=== PATIENT | female | born 1955 | race Asian ===

== ENCOUNTER 2019-11-03 22:12 | Inpatient (IN) | payer OTHER ==
[~2019-11-03] VITALS: Ht 160 cm; Wt 75.5 kg
[2019-11-03] MEDS ORDERED: DOCUSATE SODIU100 MG ORAL (22:13)
[2019-11-03] MEDS ORDERED: ASPIR 8181 MG ORAL (22:13)
[2019-11-03] MEDS ORDERED: MULTIVITAMINS1 EA13 ORAL (22:13)
--- NOTE | 2019-11-03 22:16 | Emergency Room Report ---
History of Present Illness General Chief Complaint: Upper Respiratory Illness Source: Patient Present Illness HPI Disclaimer: Please note that this report is being documented using DRAGON technology. This can lead to erroneous entry secondary to incorrect interpretation by the dictating instrument. HPI: 64-year-old female presenting from [facility] for evaluation of cough and fever. Symptoms began today. Paramedics reported fever greater than 101.4 degrees and a nonproductive cough beginning early this afternoon. Patient was brought in because she had no response to the Tylenol that was administered approximately 7 PM. Patient has a history of diabetes, hypertension, stroke and baseline mentation is reportedly AO x1. Patient arrives in no respiratory distress but is hypoxic at 88% on room air. Patient is primarily Northern [place] speaking but does appear to understand some Finnish. Does not provide any information. PMH: Diabetes, CVA, dysphasia, hypertension PSH: Reviewed Allergies: Bactrim Social Hx: Reviewed Allergies: Coded Allergies: SULFAMETHOXAZOLE (Verified Allergy, Unknown, 11/03/19) TRIMETHOPRIM (Verified Allergy, Unknown, 11/03/19) COVID-19 Screening Contact w/high risk pt: No Recent Travel to affected area: No Experienced COVID-19 symptoms?: Yes COVID-19 symptoms experienced: Fever (T>100.4F or >38C), Cough, Flu-Like Symptoms Patient History Last Menstrual Period: na Nursing Documentation-PMH Past Medical History: No History, Except For Hx Hypertension: Yes Hx Diabetes: Yes History Of Psychiatric Problem: Yes Review of Systems All Other Systems: limited - Unable to obtain due to patient cooperation/ mental status Physical Exam Vital Signs Date Time Temp Pulse Resp B/P (MAP) Pulse Ox O2 Delivery O2 Flow Rate FiO2 11/03/19 22:01 101.5 99 20 135/78 (97) 88 Room Air General: Awake, febrile HEENT: NC/AT. EOMI. Cardiovascular: Tachycardic. Resp: Mild tachypnea. Normal gait breathing. 88% on room air. Abdomen: Abdomen is soft, nondistended. Nontender Skin: Intact. No abrasions, laceration or rash over the exposed skin MSK: Normal tone and bulk. Moving all extremities. No obvious deformity. Neuro: Awake and alert. Mentating appropriately. Procedures Critical Care Time Critical Care Time Total critical care time: Approximately 31 minutes Due to a high probability of clinically significant, life threatening deterioration, the patient required the highest level of preparedness to intervene emergently and I personally spent this critical care time directly and personally managing the patient. This critical care time included obtaining a history, examining the patient, pulse oximetry, ordering and reviewing studies , ordering treatments, evaluating response to treatment and updating management plan as needed, frequent reassessment and discussion with other providers as well as arranging for ultimate disposition. This critical to care time was performed to assess and manage the high probability of life-threatening deterioration that could result in multiorgan failure. This critical care time is separate from the separately billable procedures and treating other patients. Medical Decision Making Diagnostic Impression: Primary Impression: Hypoxia Additional Impressions: Suspected 2019 novel coronavirus infection Pneumonia due to COVID-19 virus UTI (urinary tract infection) ER Course This is a 64-year-old female presenting from nursing facility for evaluation of cough and fever. Differential includes was not limited to viral syndrome, pneumonia, bronchitis, upper respiratory infection, COVID-19 infection, GERD, ACS. Patient arrives 88% on room air though no respiratory distress at this time. She is febrile despite receiving Tylenol prior to arrival. Based on the patient's presenting signs, symptoms and physical exam findings, the patient has been screened and is suspected to have COVID-19. Will obtain blood cultures , lactate, COVID swab, influenza swab, chest x-ray and other labs. Stat ABG ordered and patient started on nasal cannula. She is full code. Patient will require admission. Laboratory Tests Test 11/03/19 22:22 11/03/19 22:24 11/04/19 00:18 White Blood Count 6.5 K/UL (4.8-10.8) Red Blood Count 4.71 M/UL (4.20-5.40) Hemoglobin 13.8 G/DL (12.0-16.0) Hematocrit 43.6 % (37.0-47.0) Mean Corpuscular Volume 93 FL (80-99) Mean Corpuscular Hemoglobin 29.2 PG (27.0-31.0) Mean Corpuscular Hemoglobin Concent 31.6 G/DL (32.0-36.0) L Red Cell Distribution Width 14.6 % (11.6-14.8) Platelet Count 191 K/UL (150-450) Mean Platelet Volume 6.7 FL (6.5-10.1) Neutrophils (%) (Auto) 45.4 % (45.0-75.0) Lymphocytes (%) (Auto) 44.3 % (20.0-45.0) Monocytes (%) (Auto) 8.8 % (1.0-10.0) Eosinophils (%) (Auto) 0.1 % (0.0-3.0) Basophils (%) (Auto) 1.6 % (0.0-2.0) Urine Color Pale yellow Urine Appearance Cloudy Urine pH 6 (4.5-8.0) Urine Specific [place] 1.015 (1.005-1.035) Urine Protein 3+ (NEGATIVE) H Urine Glucose (UA) Negative (NEGATIVE) Urine Ketones Negative (NEGATIVE) Urine Blood 5+ (NEGATIVE) H Urine Nitrite Negative (NEGATIVE) Urine Bilirubin Negative (NEGATIVE) Urine Urobilinogen Normal MG/DL (0.0-1.0) Urine Leukocyte Esterase 3+ (NEGATIVE) H Urine RBC 10-15 /HPF (0 - 2) H Urine WBC Tntc /HPF (0 - 2) H Urine Squamous Epithelial Cells Occasional /LPF Urine Bacteria Moderate /HPF (NONE) H Sodium Level 137 MMOL/L (136-145) Potassium Level 4.1 MMOL/L (3.5-5.1) Chloride Level 104 MMOL/L (98-107) Carbon Dioxide Level 23 MMOL/L (21-32) Anion Gap 10 mmol/L (5-15) Blood Urea Nitrogen 18 mg/dL (7-18) Creatinine 1.0 MG/DL (0.55-1.30) Estimated Glomerular Filtration Rate 56.0 mL/min (>60) Glucose Level 179 MG/DL (74-106) H Lactic Acid Level 0.90 mmol/L (0.4-2.0) Calcium Level 8.3 MG/DL (8.5-10.1) L Total Bilirubin 0.3 MG/DL (0.2-1.0) Aspartate Amino Transferase (AST) 102 U/L (15-37) H Alanine Aminotransferase (ALT) 70 U/L (12-78) Alkaline Phosphatase 80 U/L (46-116) Troponin I 0.002 ng/mL (0.000-0.056) Pro-B-Type Natriuretic Peptide 29 pg/mL (0-125) Total Protein 8.9 G/DL (6.4-8.2) H Albumin 2.9 G/DL (3.4-5.0) L Globulin 6.0 g/dL Albumin/Globulin Ratio 0.5 (1.0-2.7) L Arterial Blood pH 7.430 (7.350-7.450) 7.445 (7.350-7.450) Arterial Blood Partial Pressure CO2 32.6 mmHg (35.0-45.0) L 33.2 mmHg (35.0-45.0) L Arterial Blood Partial Pressure O2 64.7 mmHg (75.0-100.0) L 380.4 mmHg (75.0-100.0) H Arterial Blood HCO3 21.2 mmol/L (22.0-26.0) L 22.3 mmol/L (22.0-26.0) Arterial Blood Oxygen Saturation 93.2 % (95-100) L 99.2 % (95-100) Arterial Blood Base Excess -2.2 (-2-2) L -1.0 (-2-2) Faheem Test Positive Positive Microbiology Date/Time Source Procedure Growth Status 11/03/19 22:22 Nasal Nares - Final Complete 11/03/19 22:22 Nasal Nares - Final Complete EKG Diagnostic Results EKG Time: 22:33 Rate: tachycardiac Rhythm: NSR ST Segments: no acute changes Other Impression Sinus rhythm, borderline left axis, normal intervals, no ST segment changes. Rhythm Strip Diag. Results Rhythm Strip Time: 22:33 EP Interpretation: yes Rate: 100 Rhythm: no ectopy Chest X-Ray Diagnostic Results Chest X-Ray Diagnostic Results : Chest X-Ray Ordered: Yes # of Views/Limited/Complete: 1 View Indication: Shortness of Breath EP Interpretation: Yes Interpretation: other - Bilateral infiltrates Impression: Other - Bilateral infiltrates concerning for pneumonia Electronically Signed by: Electronically signed by Dr. Kevin Altamirano Reevaluation Time: 01:28 Last Vital Signs Date Time Temp Pulse Resp B/P (MAP) Pulse Ox O2 Delivery O2 Flow Rate FiO2 11/03/19 22:01 101.5 99 20 135/78 (97) 88 Room Air Reevaluation Impression Initial blood gas while the patient was on room air showed hypoxia without acidosis. Patient remained on breathing mask for approximate 1 hour had repeat blood gas shows significant improvement. She also received Tylenol and fever is improving. Vital signs are within normal limits. Chest x-ray concerning for right lower lobe infiltrate and bilateral opacities. Suspicious for COVID-19 infection given the bilateral opacities. No respiratory distress at this time. Labs show CBC and chemistry within normal limits; lactate, troponin and BN peptide are within normal limits. Urinalysis concerning for an acute urinary tract infection. The patient received ceftriaxone and azithromycin. Will admit to SDU on her PMD, Dr. Cabrera. Disposition: ADMITTED INPATIENT Condition: Serious Kevin Altamirano MD Nov 03, 2019 22:16
[2019-11-03 22:32] VITALS: BP 135/78
[2019-11-03] MEDS ORDERED: Acetaminophen 500mg (ES) tab ORAL ONE (22:45)
[2019-11-03 22:51] LABS: APPEARANCE,URINE CLOUDY; BILIRUBIN, URINE NEGATIVE (NEGATIVE); COLOR,URINE PALE YELLOW; GLUCOSE, URINE (UA) NEGATIVE (NEGATIVE); KETONES,URINE NEGATIVE (NEGATIVE); LEUKOCYTE ESTERASE ,URINE 3+ (NEGATIVE); NITRITE,URINE NEGATIVE (NEGATIVE); PH,URINE 6 (4.5-8.0); PROTEIN,URINE 3+ (NEGATIVE); UROBILINOGEN,URINE NORMAL MG/DL (0.0-1.0)
[2019-11-03 22:52] LABS: BASOPHILS % (AUTO) 1.6 % (0.0-2.0); EOSINOPHILS % (AUTO) 0.1 % (0.0-3.0); HEMATOCRIT 43.6 % (37.0-47.0); HEMOGLOBIN 13.8 G/DL (12.0-16.0); LYMPHOCYTES % (AUTO) 44.3 % (20.0-45.0); MEAN CORPUSCULAR VOLUME 93 FL (80-99); MONOCYTES % (AUTO) 8.8 % (1.0-10.0); NEUTROPHILS % (AUTO) 45.4 % (45.0-75.0); PLATELET COUNT 191 K/UL (150-450); RED BLOOD COUNT 4.71 M/UL (4.20-5.40); RED CELL DISTRIBUTION WIDTH 14.6 % (11.6-14.8); WHITE BLOOD COUNT 6.5 K/UL (4.8-10.8)
[2019-11-03] MEDS ORDERED: Azithromycin 500 MG in NS 275 ML IV ONE (23:00)
[2019-11-03] MEDS ORDERED: cefTRIAXone 1 GM in NS 55 ML IVPB ONE (23:00)
[2019-11-03 23:01] LABS: ANION GAP 10 mmol/L (5-15); BLOOD UREA NITROGEN 18 mg/dL (7-18); CALCIUM 8.3 MG/DL (8.5-10.1); CARBON DIOXIDE 23 MMOL/L (21-32); CHLORIDE 104 MMOL/L (98-107); POTASSIUM 4.1 MMOL/L (3.5-5.1); SODIUM 137 MMOL/L (136-145)
[2019-11-03 23:06] LABS: ALANINE AMINOTRANSFERASE 70 U/L (12-78); ALBUMIN 2.9 G/DL (3.4-5.0); ALBUMIN/GLOBULIN RATIO 0.5 (1.0-2.7); ALKALINE PHOSPHATASE 80 U/L (46-116); ASPARTATE AMINO TRANSFERASE 102 U/L (15-37); BILIRUBIN,TOTAL 0.3 MG/DL (0.2-1.0)
[2019-11-04] VITALS (7 sets, daily range): BP systolic 110–151; BP diastolic 65–86
[2019-11-04] MEDS ORDERED: Acetaminophen 650 MG SUPP RECTAL PRN
[2019-11-04] MEDS ORDERED: Morphine Sulfate 2mg/ml Inj(IV/IM USE ONLY) IVP PRN
[2019-11-04] MEDS ORDERED: Morphine Sulfate 4mg/ml Inj (IV USE ONLY) IVP PRN
[2019-11-04] MEDS: NovoLOG Insulin Flexpen SUBQ SCH ×3 (11:30→21:00)
--- NOTE | 2019-11-04 12:32 | Consultation ---
History of Present Illness General Date patient seen: Nov 04, 2019 Chief Complaint: Upper Respiratory Illness Present Illness HPI 64 y/o F with hx of Dm2, HTN, CVA, SNF resident presented to ED on 11/02 with 1 day of non productive cough and fever (up to 101.4). Upon arrival, hypoxica to 88% at RA Allergies: Coded Allergies: SULFAMETHOXAZOLE (Verified Allergy, Unknown, 11/03/19) TRIMETHOPRIM (Verified Allergy, Unknown, 11/03/19) Medication History Scheduled Aspirin* (Aspir 81*), 81 MG ORAL DAILY, (Reported) Docusate Sodium* (Docusate Sodium*), 200 MG ORAL DAILY, (Reported) Multivitamin with Minerals (Multivitamins with Minerals), 1 TAB ORAL DAILY, ( Reported) Patient History Healthcare decision maker Rhea CHATMAN-son Resuscitation status Full Code Advanced Directive on File No Physical Exam Physical Exam Narrative General: Awake, febrile HEENT: NC/AT. EOMI. Cardiovascular: Tachycardic. Resp: Mild tachypnea. Normal gait breathing. 88% on room air. Abdomen: Abdomen is soft, nondistended. Nontender Skin: Intact. No abrasions, laceration or rash over the exposed skin MSK: Normal tone and bulk. Moving all extremities. No obvious deformity. Neuro: Awake and alert. Mentating appropriately. Last 24 Hour Vital Signs Date Time Temp Pulse Resp B/P (MAP) Pulse Ox O2 Delivery O2 Flow Rate FiO2 11/04/19 10:00 Simple Mask 6.0 11/04/19 08:30 97.9 20 110/73 (85) 99 11/04/19 08:15 99.1 75 20 123/61 98 Simple Mask 8.0 11/04/19 07:50 99.1 11/04/19 06:30 99.1 80 22 129/65 99 Simple Mask 10.0 11/04/19 03:30 100.1 96 18 122/68 99 Simple Mask 4.0 11/04/19 00:30 100.5 98 16 128/70 99 Simple Mask 11/03/19 22:32 102.5 109 18 135/78 94 Nasal Cannula 4.0 11/03/19 22:32 99 20 Nasal Cannula 4.0 11/03/19 22:01 101.5 99 20 135/78 (97) 88 Room Air Laboratory Tests Test 11/03/19 22:22 4/19/20 22:24 11/04/19 00:18 White Blood Count 6.5 K/UL (4.8-10.8) Red Blood Count 4.71 M/UL (4.20-5.40) Hemoglobin 13.8 G/DL (12.0-16.0) Hematocrit 43.6 % (37.0-47.0) Mean Corpuscular Volume 93 FL (80-99) Mean Corpuscular Hemoglobin 29.2 PG (27.0-31.0) Mean Corpuscular Hemoglobin Concent 31.6 G/DL (32.0-36.0) L Red Cell Distribution Width 14.6 % (11.6-14.8) Platelet Count 191 K/UL (150-450) Mean Platelet Volume 6.7 FL (6.5-10.1) Neutrophils (%) (Auto) 45.4 % (45.0-75.0) Lymphocytes (%) (Auto) 44.3 % (20.0-45.0) Monocytes (%) (Auto) 8.8 % (1.0-10.0) Eosinophils (%) (Auto) 0.1 % (0.0-3.0) Basophils (%) (Auto) 1.6 % (0.0-2.0) Urine Color Pale yellow Urine Appearance Cloudy Urine pH 6 (4.5-8.0) Urine Specific [place] 1.015 (1.005-1.035) Urine Protein 3+ (NEGATIVE) H Urine Glucose (UA) Negative (NEGATIVE) Urine Ketones Negative (NEGATIVE) Urine Blood 5+ (NEGATIVE) H Urine Nitrite Negative (NEGATIVE) Urine Bilirubin Negative (NEGATIVE) Urine Urobilinogen Normal MG/DL (0.0-1.0) Urine Leukocyte Esterase 3+ (NEGATIVE) H Urine RBC 10-15 /HPF (0 - 2) H Urine WBC Tntc /HPF (0 - 2) H Urine Squamous Epithelial Cells Occasional /LPF Urine Bacteria Moderate /HPF (NONE) H Sodium Level 137 MMOL/L (136-145) Potassium Level 4.1 MMOL/L (3.5-5.1) Chloride Level 104 MMOL/L (98-107) Carbon Dioxide Level 23 MMOL/L (21-32) Anion Gap 10 mmol/L (5-15) Blood Urea Nitrogen 18 mg/dL (7-18) Creatinine 1.0 MG/DL (0.55-1.30) Estimat Glomerular Filtration Rate 56.0 mL/min (>60) Glucose Level 179 MG/DL (74-106) H Lactic Acid Level 0.90 mmol/L (0.4-2.0) Calcium Level 8.3 MG/DL (8.5-10.1) L Total Bilirubin 0.3 MG/DL (0.2-1.0) Aspartate Amino Transf (AST/SGOT) 102 U/L (15-37) H Alanine Aminotransferase (ALT/SGPT) 70 U/L (12-78) Alkaline Phosphatase 80 U/L (46-116) Troponin I 0.002 ng/mL (0.000-0.056) Pro-B-Type Natriuretic Peptide 29 pg/mL (0-125) Total Protein 8.9 G/DL (6.4-8.2) H Albumin 2.9 G/DL (3.4-5.0) L Globulin 6.0 g/dL Albumin/Globulin Ratio 0.5 (1.0-2.7) L Arterial Blood pH 7.430 (7.350-7.450) 7.445 (7.350-7.450) Arterial Blood Partial Pressure CO2 32.6 mmHg (35.0-45.0) L 33.2 mmHg (35.0-45.0) L Arterial Blood Partial Pressure O2 64.7 mmHg (75.0-100.0) L 380.4 mmHg (75.0-100.0) H Arterial Blood HCO3 21.2 mmol/L (22.0-26.0) L 22.3 mmol/L (22.0-26.0) Arterial Blood Oxygen Saturation 93.2 % (95-100) L 99.2 % (95-100) Arterial Blood Base Excess -2.2 (-2-2) L -1.0 (-2-2) Faheem Test Positive Positive Microbiology Date/Time Source Procedure Growth Status 11/03/19 22:22 Nasal Nares - Final Complete 11/03/19 22:22 Nasal Nares - Final Complete 11/03/19 22:22 Urine,Clean Catch Urine Culture - Preliminary Resulted Height (Feet): 5 Height (Inches): 3.00 Weight (Pounds): 140 Medications Current Medications Medications (Trade) Dose Ordered Sig/Maryam Route PRN Reason Start Time Stop Time Status Last Admin Dose Admin Aspirin (Ecotrin) 81 mg DAILY ORAL 11/05/19 09:00 12/20/19 08:59 Ceftriaxone Sodium 1 gm/ Dextrose 55 ml @ 110 mls/hr Q24H IVPB 11/04/19 23:00 11/11/19 22:59 Dextrose (Dextrose 50%) 25 ml Q30M PRN IV Hypoglycemia 11/04/19 10:45 02/02/20 10:44 Dextrose (Dextrose 50%) 50 ml Q30M PRN IV Hypoglycemia 11/04/19 10:45 02/02/20 10:44 Insulin Aspart (NovoLOG) BEFORE MEALS AND HS SUBQ 11/04/19 11:30 02/02/20 11:29 Assessment/Plan Assessment/Plan: Abx: Ceftriaxone 11/02- Azithromycin x1 11/02 Assessment: Sepsis Fever- r/o COVID19, high suspicion (pt from [facility] w confirmed cases) Acute hypoxic respiratory failure- on simple mask Pnuemonia -CXR: pending, per ED report: Bilateral infiltrates concerning for pneumonia -Influenza sc neg No leukocytosis Probable UTI -u/a wbc tnct, nit neg, leuk +3; ucx p Dm2 HTN CVA SNF resident ([facility]) Plan: -Switch Ceftriaxone to Cefepime pending ucx -Continue azithromycin #2 -f/u cx -Monitor CBC/CMP, temperaturse Thank you for consulting [facility]. Will continue to follow along wiht you. Pmhx: as above SHx: reviewed Fhx: non contributory Jenna Briseno M.D. Nov 04, 2019 12:32
--- NOTE | 2019-11-04 12:45 | History and Physical Report ---
DATE OF ADMISSION: 11/03/2019 DATE AND TIME SEEN: 11/04/2019 at 9 a.m. CONSULTANTS: 1. Woody Bradley M.D. 2. Pritesh Royal M.D. 3. Isaac Vee M.D. CHIEF COMPLAINT: Shortness of breath, hypoxia, rule out COVID. BRIEF HISTORY: This is a 64-year-old female, who lives at [facility], presented with above-mentioned diagnosis, transferred to [facility] and admitted for above and rule out COVID. Currently, getting pulmonary treatment. Slight short of breath, slightly confused. No complaint. REVIEW OF SYSTEMS: Unable to obtain secondary to the patient's confusion. PAST MEDICAL HISTORY: Includes CVA, hypertension, diabetes type 2, renal failure, and confusion. PAST SURGICAL HISTORY: Unknown. MEDICATIONS: Include morphine, Zofran, Tylenol, azithromycin, ceftriaxone. ALLERGIES: Sulfa and trimethoprim. SOCIAL HISTORY: No smoking. No alcohol. No intravenous drug abuse. FAMILY HISTORY: Noncontributory. PHYSICAL EXAMINATION: GENERAL: Slightly confused in bed, not really talking much, getting pulmonary treatment. Calm in bed, slight short of breath. VITAL SIGNS: Temperature is 99, T-max 102.5, pulse 75, respirations 20, blood pressure 123/61. HEENT: Normocephalic and atraumatic. NECK: Trachea midline. CARDIOVASCULAR: No peripheral edema. PULMONARY: Slight short of breath. Getting pulmonary treatment. ABDOMEN: No apparent wounds noted. EXTREMITIES: Show no cyanosis or clubbing. LABORATORY AND DIAGNOSTIC DATA: Labs at this time show CBC is normal. BMP shows glucose 179. Otherwise, calcium 8.3. Troponin 0.002, albumin 2.9. Urinalysis shows 5+ blood, 3+ protein, 3+ leukocyte esterase. ASSESSMENT: Shortness of breath, hypoxia, malnutrition, anemia, fever, rule out COVID, CVA, hypertension, diabetes, renal failure, and confusion. PLAN: O2 and pulmonary treatment. Antibiotics per Infectious Disease. Blood pressure and blood sugar control. Dietary followup. CBC and BMP in the morning. Trevor Cabrera D.O. DR: DANETTE JOB#: [id number] CC:
[2019-11-04] MEDS ORDERED: Cefepime HCl 1 GM in D5W 55 ML IVPB SCH (14:00)
--- NOTE | 2019-11-04 17:30 | Consultation ---
DATE OF CONSULTATION: 11/04/2019 PULMONARY CONSULTATION CONSULTING PHYSICIAN: Woody Bradley M.D. HISTORY OF PRESENT ILLNESS: This is a 64-year-old female, who was sent in from a nursing facility with cough and fever. Symptoms have been ongoing for the last 24 hours. The patient was found to be febrile in the [place] [facility] with a T-max of 101.4. She also reported a cough. The patient was given Tylenol, but had no relief. The patient was admitted to the hospital. She was also noted to be hypoxic on room air 88%. PAST HISTORY: Hypertension, diabetes mellitus, previous CVA, cognitive impairment. SURGICAL HISTORY: None reported. ALLERGIES: To Bactrim. REVIEW OF SYSTEMS: Unreliable. PHYSICAL EXAMINATION: VITAL SIGNS: Blood pressure is 110/70, heart rate 94, respirations are 20, O2 saturation 98% on simple mask with oxygen 5 L. She is afebrile. GENERAL: Reveals an elderly female. HEENT: Unremarkable. CHEST: Diminished breath sounds bilaterally with normal heart sounds. ABDOMEN: Soft. EXTREMITIES: There is no edema. LABORATORY DATA: Lab testing at this time is notable for normal CBC and glucose of 179, AST mildly elevated at 102. Troponin 0.002. Albumin is 2.9. ABG, pH 7.44, pCO2 33, pO2 380. There is 100% oxygen. Urinalysis shows too numerous to count wbc. IMPRESSION: 1. UTI. 2. Hypoxemia. 3. Hypertension. 4. Diabetes mellitus. 5. Previous CVA. 6. Cognitive impairment. 7. residential resident. 8. Bactrim allergy. DISCUSSION: Agree with admission and care. The patient will need broad-spectrum antibiotics. I note that she has received a single dose of Rocephin. I will initiate therapy with Rocephin on a regular basis. Order oxygen and pulmonary hygiene. We will follow as hull grinder. Woody Bradley M.D. DR: RAFAEL JOB#: [id number] CC:
[2019-11-04] MEDS ORDERED: cefTRIAXone 1 GM in D5W 55 ML IVPB SCH (23:00)
[2019-11-05] VITALS: BP 111/77
[2019-11-05] MEDS: Cefepime HCl 1 GM in D5W 55 ML IVPB SCH (02:03)
[2019-11-05 04:00] VITALS: BP 118/86
[2019-11-05 05:46] LABS: BASOPHILS % (AUTO) 0.9 % (0.0-2.0); EOSINOPHILS % (AUTO) 0.1 % (0.0-3.0); HEMATOCRIT 40.1 % (37.0-47.0); HEMOGLOBIN 13.4 G/DL (12.0-16.0); LYMPHOCYTES % (AUTO) 34.7 % (20.0-45.0); MEAN CORPUSCULAR VOLUME 88 FL (80-99); NEUTROPHILS % (AUTO) 56.3 % (45.0-75.0); PLATELET COUNT 146 K/UL (150-450); RED BLOOD COUNT 4.56 M/UL (4.20-5.40); RED CELL DISTRIBUTION WIDTH 12.8 % (11.6-14.8); WHITE BLOOD COUNT 6.4 K/UL (4.8-10.8)
[2019-11-05 05:49] LABS: ANION GAP 12 mmol/L (5-15); BLOOD UREA NITROGEN 18 mg/dL (7-18); CARBON DIOXIDE 21 MMOL/L (21-32); CHLORIDE 108 MMOL/L (98-107); CREATININE 0.9 MG/DL (0.55-1.30); POTASSIUM 3.8 MMOL/L (3.5-5.1); SODIUM 141 MMOL/L (136-145)
[2019-11-05] MEDS: NovoLOG Insulin Flexpen SUBQ SCH ×4 (06:30→21:00)
--- NOTE | 2019-11-05 07:34 | Diagnostic Imaging Report ---
Indication: Cough Technique: One view of the chest Comparison: none Findings: The heart is borderline enlarged. There are bilateral interstitial opacities diffusely. No definite focal airspace consolidation. The pleural spaces are clear. Impression: Borderline cardiomegaly. Bilateral interstitial disease. This is nonspecific, could indicate infiltrates, edema, among other possibilities
[2019-11-05 08:00] VITALS: BP 116/84
[2019-11-05] MEDS: Azithromycin 250mg tab ORAL SCH (09:10)
[2019-11-05] MEDS: Aspirin EC 81mg tab ORAL SCH (09:10)
--- NOTE | 2019-11-05 11:27 | Pulmonology Progress Note ---
Assessment/Plan Assessment/Plan IMPRESSION: 1. UTI. 2. Hypoxemia. 3. Hypertension. 4. Diabetes mellitus. 5. Previous CVA. 6. Cognitive impairment. 7. half-way resident. 8. Bactrim allergy. 9. COVID 19 results pending. DISCUSSION: Agree with admission and care. The patient will need broad-spectrum antibiotics. Ordered oxygen and pulmonary hygiene. I will follow as personal injury specialist. Woody Bradley M.D. Subjective Interval Events: On 4L/min O2; none new Constitutional: Reports: no symptoms HEENT: Repors: no symptoms Respiratory: Reports: no symptoms Cardiovascular: Reports: no symptoms Gastrointestinal/Abdominal: Reports: no symptoms Allergies: Coded Allergies: SULFAMETHOXAZOLE (Verified Allergy, Unknown, 11/03/19) TRIMETHOPRIM (Verified Allergy, Unknown, 11/03/19) Objective Last 24 Hour Vital Signs Date Time Temp Pulse Resp B/P (MAP) Pulse Ox O2 Delivery O2 Flow Rate FiO2 11/05/19 08:00 Nasal Cannula 4.0 11/05/19 08:00 98.1 84 19 116/84 (95) 95 11/05/19 07:51 81 11/05/19 04:00 Nasal Cannula 4.0 11/05/19 04:00 71 11/05/19 04:00 98.5 80 20 118/86 (97) 98 11/05/19 00:00 101.1 92 20 111/77 (88) 100 11/05/19 00:00 92 11/05/19 00:00 Nasal Cannula 4.0 11/04/19 22:58 101.1 11/04/19 20:00 102.2 104 20 122/73 (89) 99 11/04/19 20:00 Nasal Cannula 4.0 11/04/19 20:00 104 11/04/19 16:00 Nasal Cannula 4.0 11/04/19 16:00 97 11/04/19 15:34 99.9 103 20 120/77 (91) 92 11/04/19 12:00 Nasal Cannula 4.0 11/04/19 12:00 96.4 73 20 151/86 (107) 99 11/04/19 11:49 84 Intake and Output 11/04/19 11/05/19 19:00 07:00 Intake Total 480 ml 55 ml Output Total 200 ml Balance 280 ml 55 ml Intake Oral 480 ml IV Total 55 ml Output Urine Total 200 ml # Voids 2 2 General Appearance: no acute distress HEENT: normocephalic Respiratory/Chest: chest wall non-tender, decreased breath sounds Cardiovascular: normal peripheral pulses Abdomen: normal bowel sounds Extremities: no cyanosis Microbiology Date/Time Source Procedure Growth Status 11/03/19 22:22 Blood Blood Culture - Preliminary NO GROWTH AFTER 24 HOURS Resulted 11/03/19 22:00 Blood Blood Culture - Preliminary NO GROWTH AFTER 24 HOURS Resulted 11/03/19 22:22 Nasal Nares - Final Complete 11/03/19 22:22 Nasal Nares - Final Complete 11/03/19 22:22 Urine,Clean Catch Urine Culture - Preliminary Gram Negative Bacillus 1 Resulted Laboratory Tests 11/05/19 03:00: White Blood Count 6.4, Red Blood Count 4.56, Hemoglobin 13.4, Hematocrit 40.1, Mean Corpuscular Volume 88, Mean Corpuscular Hemoglobin 29.3, Mean Corpuscular Hemoglobin Concent 33.4, Red Cell Distribution Width 12.8, Platelet Count 146L, Mean Platelet Volume 5.6L, Neutrophils (%) (Auto) 56.3, Lymphocytes (%) (Auto) 34.7, Monocytes (%) (Auto) 8.0, Eosinophils (%) (Auto) 0.1, Basophils (%) (Auto ) 0.9, Sodium Level 141, Potassium Level 3.8, Chloride Level 108H, Carbon Dioxide Level 21, Anion Gap 12, Blood Urea Nitrogen 18, Creatinine 0.9, Estimat Glomerular Filtration Rate > 60, Glucose Level 157H, Calcium Level 8.0L Current Medications Medications (Trade) Dose Ordered Sig/Maryam Route PRN Reason Start Time Stop Time Status Last Admin Dose Admin Acetaminophen (Tylenol) 650 mg Q6H PRN ORAL MILD PAIN/TEMP >100.5 11/04/19 20:30 12/04/19 20:29 11/04/19 22:28 Aspirin (Ecotrin) 81 mg DAILY ORAL 11/05/19 09:00 12/20/19 08:59 11/05/19 09:10 Azithromycin (Zithromax) 500 mg DAILY ORAL 11/05/19 09:00 11/12/19 08:59 11/05/19 09:10 Cefepime HCl 1 gm/ Dextrose 55 ml @ 110 mls/hr Q24H IVPB 11/05/19 02:00 11/12/19 01:59 11/05/19 02:03 Dextrose (Dextrose 50%) 25 ml Q30M PRN IV Hypoglycemia 11/04/19 10:45 02/02/20 10:44 Dextrose (Dextrose 50%) 50 ml Q30M PRN IV Hypoglycemia 11/04/19 10:45 02/02/20 10:44 Insulin Aspart (NovoLOG) BEFORE MEALS AND HS SUBQ 11/04/19 11:30 02/02/20 11:29 11/04/19 17:38 Woody Bradley MD Nov 05, 2019 11:27
--- NOTE | 2019-11-05 11:39 | Infectious Diseases Prog Note ---
Assessment/Plan Assessment/Plan Assessment: Sepsis Fever- r/o COVID19, high suspicion (pt from [facility] w confirmed cases) Acute hypoxic respiratory failure- on simple mask Pnuemonia -CXR: Borderline cardiomegaly. Bilateral interstitial disease. This is nonspecific, could indicate infiltrates, edema, among other possibilities -Influenza sc neg -Bcx NTD No leukocytosis UTI -u/a wbc tnct, nit neg, leuk +3; ucx >100k GNR Dm2 HTN CVA [facility] resident ([facility]) Plan: - Cefepime#2 (abx d #3) pending ucx -Continue azithromycin #3 -11/03 SP Ceftriaxone #2 -f/u cx -Monitor CBC/CMP, temperaturse -EKG -CXR an Thank you for consulting [facility]. Will continue to follow along wiht you. Subjective Allergies: Coded Allergies: SULFAMETHOXAZOLE (Verified Allergy, Unknown, 11/03/19) TRIMETHOPRIM (Verified Allergy, Unknown, 11/03/19) Subjective Tm 102.2 at 4l nC no leukocytosis Objective Vital Signs Last 24 Hour Vital Signs Date Time Temp Pulse Resp B/P (MAP) Pulse Ox O2 Delivery O2 Flow Rate FiO2 11/05/19 08:00 Nasal Cannula 4.0 11/05/19 08:00 98.1 84 19 116/84 (95) 95 11/05/19 07:51 81 11/05/19 04:00 Nasal Cannula 4.0 11/05/19 04:00 71 11/05/19 04:00 98.5 80 20 118/86 (97) 98 11/05/19 00:00 101.1 92 20 111/77 (88) 100 11/05/19 00:00 92 11/05/19 00:00 Nasal Cannula 4.0 11/04/19 22:58 101.1 11/04/19 20:00 102.2 104 20 122/73 (89) 99 11/04/19 20:00 Nasal Cannula 4.0 11/04/19 20:00 104 11/04/19 16:00 Nasal Cannula 4.0 11/04/19 16:00 97 11/04/19 15:34 99.9 103 20 120/77 (91) 92 11/04/19 12:00 Nasal Cannula 4.0 11/04/19 12:00 96.4 73 20 151/86 (107) 99 11/04/19 11:49 84 Height (Feet): 5 Height (Inches): 3.00 Weight (Pounds): 140 Objective not examined to limit covid exposure Microbiology Date/Time Source Procedure Growth Status 11/03/19 22:22 Blood Blood Culture - Preliminary NO GROWTH AFTER 24 HOURS Resulted 11/03/19 22:00 Blood Blood Culture - Preliminary NO GROWTH AFTER 24 HOURS Resulted 11/03/19 22:22 Nasal Nares - Final Complete 11/03/19 22:22 Nasal Nares - Final Complete 11/03/19 22:22 Urine,Clean Catch Urine Culture - Preliminary Gram Negative Bacillus 1 Resulted Laboratory Tests Test 11/05/19 03:00 White Blood Count 6.4 K/UL (4.8-10.8) Red Blood Count 4.56 M/UL (4.20-5.40) Hemoglobin 13.4 G/DL (12.0-16.0) Hematocrit 40.1 % (37.0-47.0) Mean Corpuscular Volume 88 FL (80-99) Mean Corpuscular Hemoglobin 29.3 PG (27.0-31.0) Mean Corpuscular Hemoglobin Concent 33.4 G/DL (32.0-36.0) Red Cell Distribution Width 12.8 % (11.6-14.8) Platelet Count 146 K/UL (150-450) L Mean Platelet Volume 5.6 FL (6.5-10.1) L Neutrophils (%) (Auto) 56.3 % (45.0-75.0) Lymphocytes (%) (Auto) 34.7 % (20.0-45.0) Monocytes (%) (Auto) 8.0 % (1.0-10.0) Eosinophils (%) (Auto) 0.1 % (0.0-3.0) Basophils (%) (Auto) 0.9 % (0.0-2.0) Sodium Level 141 MMOL/L (136-145) Potassium Level 3.8 MMOL/L (3.5-5.1) Chloride Level 108 MMOL/L (98-107) H Carbon Dioxide Level 21 MMOL/L (21-32) Anion Gap 12 mmol/L (5-15) Blood Urea Nitrogen 18 mg/dL (7-18) Creatinine 0.9 MG/DL (0.55-1.30) Estimat Glomerular Filtration Rate > 60 mL/min (>60) Glucose Level 157 MG/DL (74-106) H Calcium Level 8.0 MG/DL (8.5-10.1) L Current Medications Medications (Trade) Dose Ordered Sig/Maryam Route PRN Reason Start Time Stop Time Status Last Admin Dose Admin Acetaminophen (Tylenol) 650 mg Q6H PRN ORAL MILD PAIN/TEMP >100.5 11/04/19 20:30 12/04/19 20:29 11/04/19 22:28 Aspirin (Ecotrin) 81 mg DAILY ORAL 11/05/19 09:00 12/20/19 08:59 11/05/19 09:10 Azithromycin (Zithromax) 500 mg DAILY ORAL 11/05/19 09:00 11/12/19 08:59 11/05/19 09:10 Cefepime HCl 1 gm/ Dextrose 55 ml @ 110 mls/hr Q24H IVPB 11/05/19 02:00 11/12/19 01:59 11/05/19 02:03 Dextrose (Dextrose 50%) 25 ml Q30M PRN IV Hypoglycemia 11/04/19 10:45 02/02/20 10:44 Dextrose (Dextrose 50%) 50 ml Q30M PRN IV Hypoglycemia 11/04/19 10:45 02/02/20 10:44 Insulin Aspart (NovoLOG) BEFORE MEALS AND HS SUBQ 11/04/19 11:30 02/02/20 11:29 11/04/19 17:38 Jenna Briseno M.D. Nov 05, 2019 11:39
[2019-11-05 12:00] VITALS: BP 118/81
--- NOTE | 2019-11-05 12:47 | General Progress Note ---
Assessment/Plan Problem List: (1) Malnutrition ICD Codes: E46 - Unspecified protein-calorie malnutrition SNOMED: 19722211 (2) Anemia ICD Codes: D64.9 - Anemia, unspecified SNOMED: 605172747 (3) Fever ICD Codes: R50.9 - Fever, unspecified SNOMED: 237593175 (4) CVA (cerebral vascular accident) ICD Codes: I63.9 - Cerebral infarction, unspecified SNOMED: 266082656 (5) HTN (hypertension) ICD Codes: I10 - Essential (primary) hypertension SNOMED: 54010192 (6) Diabetes ICD Codes: E11.9 - Type 2 diabetes mellitus without complications SNOMED: 53620563 (7) Renal failure ICD Codes: N19 - Unspecified kidney failure SNOMED: 84473007 (8) Confusion ICD Codes: R41.0 - Disorientation, unspecified SNOMED: 760463313 (9) Hypoxia ICD Codes: R09.02 - Hypoxemia SNOMED: 659119337 (10) Suspected 2019 novel coronavirus infection ICD Codes: R68.89 - Other general symptoms and signs SNOMED: 303439649 Status: unchanged Assessment/Plan: o2 pulm tx abx bp bs control cbc bmp am Subjective Constitutional: Reports: weakness Allergies: Coded Allergies: SULFAMETHOXAZOLE (Verified Allergy, Unknown, 11/03/19) TRIMETHOPRIM (Verified Allergy, Unknown, 11/03/19) All Systems: reviewed and negative except above Subjective o2nc sleepy Objective Last 24 Hour Vital Signs Date Time Temp Pulse Resp B/P (MAP) Pulse Ox O2 Delivery O2 Flow Rate FiO2 11/05/19 08:00 Nasal Cannula 4.0 11/05/19 08:00 98.1 84 19 116/84 (95) 95 11/05/19 07:51 81 11/05/19 04:00 Nasal Cannula 4.0 11/05/19 04:00 71 11/05/19 04:00 98.5 80 20 118/86 (97) 98 11/05/19 00:00 101.1 92 20 111/77 (88) 100 11/05/19 00:00 92 11/05/19 00:00 Nasal Cannula 4.0 11/04/19 22:58 101.1 11/04/19 20:00 102.2 104 20 122/73 (89) 99 11/04/19 20:00 Nasal Cannula 4.0 11/04/19 20:00 104 11/04/19 16:00 Nasal Cannula 4.0 11/04/19 16:00 97 11/04/19 15:34 99.9 103 20 120/77 (91) 92 Intake and Output 11/04/19 11/05/19 19:00 07:00 Intake Total 480 ml 55 ml Output Total 200 ml Balance 280 ml 55 ml Intake Oral 480 ml IV Total 55 ml Output Urine Total 200 ml # Voids 2 2 Laboratory Tests 11/05/19 03:00: White Blood Count 6.4, Red Blood Count 4.56, Hemoglobin 13.4, Hematocrit 40.1, Mean Corpuscular Volume 88, Mean Corpuscular Hemoglobin 29.3, Mean Corpuscular Hemoglobin Concent 33.4, Red Cell Distribution Width 12.8, Platelet Count 146L, Mean Platelet Volume 5.6L, Neutrophils (%) (Auto) 56.3, Lymphocytes (%) (Auto) 34.7, Monocytes (%) (Auto) 8.0, Eosinophils (%) (Auto) 0.1, Basophils (%) (Auto ) 0.9, Sodium Level 141, Potassium Level 3.8, Chloride Level 108H, Carbon Dioxide Level 21, Anion Gap 12, Blood Urea Nitrogen 18, Creatinine 0.9, Estimat Glomerular Filtration Rate > 60, Glucose Level 157H, Calcium Level 8.0L Height (Feet): 5 Height (Inches): 3.00 Weight (Pounds): 140 EENT: PERRL/EOMI Neck: non-tender Cardiovascular: normal rate, regular rhythm Respiratory/Chest: normal breath sounds, no respiratory distress Extremities: normal inspection Skin: normal pigmentation Trevor Cabrera DO Nov 05, 2019 12:47
[2019-11-05 16:00] VITALS: BP 121/83
[2019-11-05 20:00] VITALS: BP 126/83
--- NOTE | 2019-11-05 21:56 | Consultation ---
History of Present Illness General Date patient seen: Nov 05, 2019 Chief Complaint: Upper Respiratory Illness Present Illness HPI This is a 64-year-old female presenting from SNF for evaluation of cough and fever for 1 day. Paramedics reported fever greater than 101.4 degrees and a nonproductive cough. Patient was brought in because she had no response to the Tylenol that was administered. Patient has a history of diabetes, hypertension , stroke and baseline mentation minimal. Patient arrives in no respiratory distress but is hypoxic at 88% on room air. Patient is primarily [place] speaking but does appear to understand some Czech. Does not provide any information. On admission noted to have abnormal labs, malnutrition, COVID r/o , decubitus ulcers. surgery called to evaluate and assist with care. Allergies: Coded Allergies: SULFAMETHOXAZOLE (Verified Allergy, Unknown, 11/03/19) TRIMETHOPRIM (Verified Allergy, Unknown, 11/03/19) Medication History Scheduled Aspirin* (Aspir 81*), 81 MG ORAL DAILY, (Reported) Docusate Sodium* (Docusate Sodium*), 200 MG ORAL DAILY, (Reported) Multivitamin with Minerals (Multivitamins with Minerals), 1 TAB ORAL DAILY, ( Reported) Patient History Limited by: medical condition History Provided By: Medical Record, PMD Healthcare decision maker Rhea CHATMAN-jose Resuscitation status Full Code Advanced Directive on File No Past Medical/Surgical History Past Medical/Surgical History: (1) Hypoxia (2) UTI (urinary tract infection) (3) Suspected 2019 novel coronavirus infection (4) Pneumonia due to COVID-19 virus (5) Fever (6) Anemia (7) Confusion (8) Diabetes (9) Renal failure (10) Malnutrition (11) HTN (hypertension) (12) CVA (cerebral vascular accident) Review of Systems All Other Systems: negative except mentioned in HPI Physical Exam General Appearance: no apparent distress Lines, tubes and drains: peripheral HEENT: mucous membranes moist Neck: normal inspection Respiratory/Chest: chest wall non-tender, no accessory muscle use, decreased breath sounds Cardiovascular/Chest: regular rhythm Abdomen: soft, no organomegaly, no mass Extremities: normal inspection, normal capillary refill, non-pitting Skin Exam: warm/dry Neurologic: alert, responsive Last 24 Hour Vital Signs Date Time Temp Pulse Resp B/P (MAP) Pulse Ox O2 Delivery O2 Flow Rate FiO2 11/05/19 16:00 98.2 94 21 121/83 (96) 95 11/05/19 16:00 81 11/05/19 16:00 Nasal Cannula 4.0 11/05/19 12:00 Nasal Cannula 4.0 11/05/19 12:00 98.1 84 18 118/81 (93) 96 11/05/19 12:00 78 11/05/19 08:00 Nasal Cannula 4.0 11/05/19 08:00 98.1 84 19 116/84 (95) 95 11/05/19 07:51 81 11/05/19 04:00 Nasal Cannula 4.0 11/05/19 04:00 71 11/05/19 04:00 98.5 80 20 118/86 (97) 98 11/05/19 00:00 101.1 92 20 111/77 (88) 100 11/05/19 00:00 92 11/05/19 00:00 Nasal Cannula 4.0 11/04/19 22:58 101.1 Intake and Output 11/04/19 11/05/19 19:00 07:00 Intake Total 480 ml 55 ml Output Total 200 ml Balance 280 ml 55 ml Intake Oral 480 ml IV Total 55 ml Output Urine Total 200 ml # Voids 2 2 Laboratory Tests Test 11/05/19 03:00 White Blood Count 6.4 K/UL (4.8-10.8) Red Blood Count 4.56 M/UL (4.20-5.40) Hemoglobin 13.4 G/DL (12.0-16.0) Hematocrit 40.1 % (37.0-47.0) Mean Corpuscular Volume 88 FL (80-99) Mean Corpuscular Hemoglobin 29.3 PG (27.0-31.0) Mean Corpuscular Hemoglobin Concent 33.4 G/DL (32.0-36.0) Red Cell Distribution Width 12.8 % (11.6-14.8) Platelet Count 146 K/UL (150-450) L Mean Platelet Volume 5.6 FL (6.5-10.1) L Neutrophils (%) (Auto) 56.3 % (45.0-75.0) Lymphocytes (%) (Auto) 34.7 % (20.0-45.0) Monocytes (%) (Auto) 8.0 % (1.0-10.0) Eosinophils (%) (Auto) 0.1 % (0.0-3.0) Basophils (%) (Auto) 0.9 % (0.0-2.0) Sodium Level 141 MMOL/L (136-145) Potassium Level 3.8 MMOL/L (3.5-5.1) Chloride Level 108 MMOL/L (98-107) H Carbon Dioxide Level 21 MMOL/L (21-32) Anion Gap 12 mmol/L (5-15) Blood Urea Nitrogen 18 mg/dL (7-18) Creatinine 0.9 MG/DL (0.55-1.30) Estimat Glomerular Filtration Rate > 60 mL/min (>60) Glucose Level 157 MG/DL (74-106) H Calcium Level 8.0 MG/DL (8.5-10.1) L Height (Feet): 5 Height (Inches): 3.00 Weight (Pounds): 140 Medications Current Medications Medications (Trade) Dose Ordered Sig/Maryam Route PRN Reason Start Time Stop Time Status Last Admin Dose Admin Acetaminophen (Tylenol) 650 mg Q6H PRN ORAL MILD PAIN/TEMP >100.5 11/04/19 20:30 12/04/19 20:29 11/04/19 22:28 Aspirin (Ecotrin) 81 mg DAILY ORAL 11/05/19 09:00 12/20/19 08:59 11/05/19 09:10 Azithromycin (Zithromax) 500 mg DAILY ORAL 11/05/19 09:00 11/12/19 08:59 11/05/19 09:10 Cefepime HCl 1 gm/ Dextrose 55 ml @ 110 mls/hr Q24H IVPB 11/05/19 02:00 11/12/19 01:59 11/05/19 02:03 Dextrose (Dextrose 50%) 25 ml Q30M PRN IV Hypoglycemia 11/04/19 10:45 02/02/20 10:44 Dextrose (Dextrose 50%) 50 ml Q30M PRN IV Hypoglycemia 11/04/19 10:45 02/02/20 10:44 Insulin Aspart (NovoLOG) BEFORE MEALS AND HS SUBQ 11/04/19 11:30 02/02/20 11:29 11/04/19 17:38 Assessment/Plan Problem List: (1) Hypoxia Assessment & Plan: supplemental O2 monitor closely ICD Codes: R09.02 - Hypoxemia SNOMED: 872303298 (2) UTI (urinary tract infection) ICD Codes: N39.0 - Urinary tract infection, site not specified SNOMED: 72849609 (3) Suspected 2019 novel coronavirus infection ICD Codes: R68.89 - Other general symptoms and signs SNOMED: 655271109 (4) Pneumonia due to COVID-19 virus Assessment & Plan: The heart is borderline enlarged. There are bilateral interstitial opacities diffusely. No definite focal airspace consolidation. The pleural spaces are clear. Impression: Borderline cardiomegaly. Bilateral interstitial disease. This is nonspecific, could indicate infiltrates, edema, among other possibilities pending swab ICD Codes: U07.1 - COVID-19; J12.89 - Other viral pneumonia SNOMED: 325703126, 343334987 (5) Fever ICD Codes: R50.9 - Fever, unspecified SNOMED: 538486428 (6) Anemia ICD Codes: D64.9 - Anemia, unspecified SNOMED: 557960538 (7) Confusion ICD Codes: R41.0 - Disorientation, unspecified SNOMED: 768532989 (8) Diabetes ICD Codes: E11.9 - Type 2 diabetes mellitus without complications SNOMED: 91174485 (9) Renal failure ICD Codes: N19 - Unspecified kidney failure SNOMED: 46327596 (10) Malnutrition ICD Codes: E46 - Unspecified protein-calorie malnutrition SNOMED: 43062946 (11) HTN (hypertension) ICD Codes: I10 - Essential (primary) hypertension SNOMED: 54815786 (12) CVA (cerebral vascular accident) ICD Codes: I63.9 - Cerebral infarction, unspecified SNOMED: 666185785 (13) Decubitus skin ulcer Assessment & Plan: Pt presented on admission with DTPI L ischium. Base of wound is purple, indurated. An area of hyperpigmentation noted distally but in close to wound bed. Non-blanching erythema cleft of buttocks. Hyperpigmentation from previous wound noted to R ischium. Within area of hyperpigmentation an area of non-blanchable erythema noted. No other skin concerns noted. Tx.Plan: Apply Moisture Barrier Paste to Sacrum. Cover with Optifoam drsg. Change every 3 days and prn. Apply Moisture Barrier Paste to R and L Ischium. Cover each area with Optifoam drsg. Change every 3 days and prn. Apply Cavilon Skin Barrier to both heels. Cover each heel with Optifoam drsg. Change every 7 days and prn. Reposition at least every 2hours or as tolerated. Off-load heels with Pillow. ICD Codes: L89.90 - Pressure ulcer of unspecified site, unspecified stage SNOMED: 617702087 Humble Sewell Nov 05, 2019 21:56
[2019-11-06] VITALS: BP 101/66
[2019-11-06] MEDS: Cefepime HCl 1 GM in D5W 55 ML IVPB SCH (02:44)
[2019-11-06 04:00] VITALS: BP 131/80
[2019-11-06] MEDS: NovoLOG Insulin Flexpen SUBQ SCH ×4 (05:33→20:36)
[2019-11-06 08:00] VITALS: BP 126/80
--- NOTE | 2019-11-06 08:51 | Diagnostic Imaging Report ---
Indication: Cough Technique: One view of the chest Comparison: 11/03/2019 Findings: Less optimal inspiration currently. Bilateral right greater than left interstitial and airspace infiltrates appear slightly worse, allowing for differences in inspiration. The heart is borderline enlarged. The aorta is tortuous and ectatic Impression: Slight worsening of bilateral right greater than left interstitial and airspace opacities, over 3 days. Most likely pneumonia but pulmonary edema also a possibility
--- NOTE | 2019-11-06 08:57 | General Progress Note ---
Assessment/Plan Problem List: (1) Malnutrition ICD Codes: E46 - Unspecified protein-calorie malnutrition SNOMED: 76181615 (2) Anemia ICD Codes: D64.9 - Anemia, unspecified SNOMED: 301567125 (3) Fever ICD Codes: R50.9 - Fever, unspecified SNOMED: 045611007 (4) CVA (cerebral vascular accident) ICD Codes: I63.9 - Cerebral infarction, unspecified SNOMED: 449953362 (5) HTN (hypertension) ICD Codes: I10 - Essential (primary) hypertension SNOMED: 79906630 (6) Diabetes ICD Codes: E11.9 - Type 2 diabetes mellitus without complications SNOMED: 92622380 (7) Renal failure ICD Codes: N19 - Unspecified kidney failure SNOMED: 32169387 (8) Confusion ICD Codes: R41.0 - Disorientation, unspecified SNOMED: 364875962 (9) Hypoxia ICD Codes: R09.02 - Hypoxemia SNOMED: 800206018 (10) Suspected 2019 novel coronavirus infection ICD Codes: R68.89 - Other general symptoms and signs SNOMED: 782222897 Status: unchanged Assessment/Plan: o2 pulm tx abx bp bs control cbc bmp am Subjective Constitutional: Reports: weakness Allergies: Coded Allergies: SULFAMETHOXAZOLE (Verified Allergy, Unknown, 11/03/19) TRIMETHOPRIM (Verified Allergy, Unknown, 11/03/19) All Systems: reviewed and negative except above Subjective o2nc sleepy Objective Last 24 Hour Vital Signs Date Time Temp Pulse Resp B/P (MAP) Pulse Ox O2 Delivery O2 Flow Rate FiO2 11/06/19 04:00 81 11/06/19 04:00 99.4 90 21 131/80 (97) 96 11/06/19 04:00 Nasal Cannula 4.0 11/06/19 00:00 93 11/06/19 00:00 98.8 88 21 101/66 (78) 94 11/06/19 00:00 Nasal Cannula 4.0 11/05/19 23:17 98.8 11/05/19 20:00 Nasal Cannula 4.0 11/05/19 20:00 102.2 94 21 126/83 (97) 93 11/05/19 19:17 88 11/05/19 16:00 98.2 94 21 121/83 (96) 95 11/05/19 16:00 81 11/05/19 16:00 Nasal Cannula 4.0 11/05/19 12:00 Nasal Cannula 4.0 11/05/19 12:00 98.1 84 18 118/81 (93) 96 11/05/19 12:00 78 Intake and Output 11/05/19 11/06/19 19:00 07:00 Intake Total 100 ml Output Total 400 ml 600 ml Balance -400 ml -500 ml Intake Oral 100 ml Output Urine Total 400 ml 600 ml # Voids 3 2 Laboratory Tests 11/06/19 08:45: White Blood Count [Pending], Red Blood Count [Pending], Hemoglobin [Pending], Hematocrit [Pending], Mean Corpuscular Volume [Pending], Mean Corpuscular Hemoglobin [Pending], Mean Corpuscular Hemoglobin Concent [Pending], Red Cell Distribution Width [Pending], Platelet Count [Pending], Mean Platelet Volume [ Pending], Neutrophils (%) (Auto) [Pending], Lymphocytes (%) (Auto) [Pending], Monocytes (%) (Auto) [Pending], Eosinophils (%) (Auto) [Pending], Basophils (%) (Auto) [Pending], Sodium Level [Pending], Potassium Level [Pending], Chloride Level [Pending], Carbon Dioxide Level [Pending], Blood Urea Nitrogen [Pending], Creatinine [Pending], Estimat Glomerular Filtration Rate [Pending], Glucose Level [Pending], Calcium Level [Pending] Height (Feet): 5 Height (Inches): 3.00 Weight (Pounds): 145 General Appearance: lethargic EENT: normal ENT inspection Neck: normal alignment Cardiovascular: normal rate, regular rhythm Respiratory/Chest: no respiratory distress, no accessory muscle use Extremities: normal inspection Skin: normal pigmentation Trevor Cabrera DO Nov 06, 2019 08:57
[2019-11-06 09:05] LABS: BASOPHILS % (AUTO) 0.7 % (0.0-2.0); HEMATOCRIT 43.5 % (37.0-47.0); HEMOGLOBIN 14.5 G/DL (12.0-16.0); LYMPHOCYTES % (AUTO) 35.6 % (20.0-45.0); MEAN CORPUSCULAR VOLUME 89 FL (80-99); MONOCYTES % (AUTO) 9.5 % (1.0-10.0); NEUTROPHILS % (AUTO) 54.1 % (45.0-75.0); PLATELET COUNT 176 K/UL (150-450); RED CELL DISTRIBUTION WIDTH 13.2 % (11.6-14.8)
[2019-11-06 09:19] LABS: ANION GAP 11 mmol/L (5-15); BLOOD UREA NITROGEN 18 mg/dL (7-18); CALCIUM 8.4 MG/DL (8.5-10.1); CARBON DIOXIDE 27 MMOL/L (21-32); CHLORIDE 109 MMOL/L (98-107); CREATININE 0.8 MG/DL (0.55-1.30); POTASSIUM 3.3 MMOL/L (3.5-5.1); SODIUM 147 MMOL/L (136-145)
[2019-11-06] MEDS: Aspirin EC 81mg tab ORAL SCH (09:43)
[2019-11-06] MEDS: Azithromycin 250mg tab ORAL SCH (09:44)
--- NOTE | 2019-11-06 10:48 | Pulmonology Progress Note ---
Assessment/Plan Assessment/Plan IMPRESSION: 1. UTI. 2. Hypoxemia. 3. Hypertension. 4. Diabetes mellitus. 5. Previous CVA. 6. Cognitive impairment. 7. shelter resident. 8. Bactrim allergy. 9. COVID 19 positive DISCUSSION: Agree with admission and care. The patient will need broad-spectrum antibiotics. Ordered oxygen and pulmonary hygiene. I will follow as commercial title examiner. Woody Bradley M.D. Subjective Interval Events: On 4L/min O2; none new Constitutional: Reports: no symptoms HEENT: Repors: no symptoms Respiratory: Reports: no symptoms Cardiovascular: Reports: no symptoms Gastrointestinal/Abdominal: Reports: no symptoms Allergies: Coded Allergies: SULFAMETHOXAZOLE (Verified Allergy, Unknown, 11/03/19) TRIMETHOPRIM (Verified Allergy, Unknown, 11/03/19) All Systems: reviewed and negative except above Objective Last 24 Hour Vital Signs Date Time Temp Pulse Resp B/P (MAP) Pulse Ox O2 Delivery O2 Flow Rate FiO2 11/06/19 08:00 97.9 77 20 126/80 (95) 94 11/06/19 04:00 81 11/06/19 04:00 99.4 90 21 131/80 (97) 96 11/06/19 04:00 Nasal Cannula 4.0 11/06/19 00:00 93 11/06/19 00:00 98.8 88 21 101/66 (78) 94 11/06/19 00:00 Nasal Cannula 4.0 11/05/19 23:17 98.8 11/05/19 20:00 Nasal Cannula 4.0 11/05/19 20:00 102.2 94 21 126/83 (97) 93 11/05/19 19:17 88 11/05/19 16:00 98.2 94 21 121/83 (96) 95 11/05/19 16:00 81 11/05/19 16:00 Nasal Cannula 4.0 11/05/19 12:00 Nasal Cannula 4.0 11/05/19 12:00 98.1 84 18 118/81 (93) 96 11/05/19 12:00 78 Intake and Output 11/05/19 11/06/19 19:00 07:00 Intake Total 100 ml Output Total 400 ml 600 ml Balance -400 ml -500 ml Intake Oral 100 ml Output Urine Total 400 ml 600 ml # Voids 3 2 General Appearance: no acute distress HEENT: mucous membranes moist Respiratory/Chest: chest wall non-tender, decreased breath sounds Cardiovascular: normal peripheral pulses Abdomen: normal bowel sounds Extremities: no cyanosis Neurologic/Psychiatric: alert, responsive Microbiology Date/Time Source Procedure Growth Status 11/03/19 22:22 Blood Blood Culture - Preliminary NO GROWTH AFTER 48 HOURS Resulted 11/03/19 22:00 Blood Blood Culture - Preliminary NO GROWTH AFTER 48 HOURS Resulted 11/03/19 22:22 Nasal Nares MRSA Culture - Final NO METHICILLIN RESISTANT STAPH AUREUS... Complete 11/03/19 22:22 Nasal Nares - Final Complete 11/03/19 22:22 Nasal Nares - Final Complete 11/03/19 22:22 Nasopharynx Coronavirus COVID-19 PCR (VANESSA) - Final Complete 11/03/19 22:22 Urine,Clean Catch Urine Culture - Preliminary Escherichia Coli Gram Negative Bacillus 2 Resulted 11/03/19 22:22 Rectum - Final NO CARBAPENEM-RESISTANT ENTEROBACTERI... Complete 11/03/19 22:22 Rectum VRE Culture - Final NO VANCOMYCIN RESISTANT ENTEROCOCCUS ... Complete Laboratory Tests 11/06/19 08:45: White Blood Count 5.0, Red Blood Count 4.90, Hemoglobin 14.5, Hematocrit 43.5, Mean Corpuscular Volume 89, Mean Corpuscular Hemoglobin 29.6, Mean Corpuscular Hemoglobin Concent 33.3, Red Cell Distribution Width 13.2, Platelet Count 176, Mean Platelet Volume 5.7L, Neutrophils (%) (Auto) 54.1, Lymphocytes (%) (Auto) 35.6, Monocytes (%) (Auto) 9.5, Eosinophils (%) (Auto) 0.0, Basophils (%) (Auto ) 0.7, Sodium Level 147H, Potassium Level 3.3L, Chloride Level 109H, Carbon Dioxide Level 27, Anion Gap 11, Blood Urea Nitrogen 18, Creatinine 0.8, Estimat Glomerular Filtration Rate > 60, Glucose Level 129H, Calcium Level 8.4L Current Medications Medications (Trade) Dose Ordered Sig/Maryam Route PRN Reason Start Time Stop Time Status Last Admin Dose Admin Acetaminophen (Tylenol) 650 mg Q6H PRN ORAL MILD PAIN/TEMP >100.5 11/04/19 20:30 12/04/19 20:29 11/05/19 22:47 Aspirin (Ecotrin) 81 mg DAILY ORAL 11/05/19 09:00 12/20/19 08:59 11/06/19 09:43 Azithromycin (Zithromax) 500 mg DAILY ORAL 11/05/19 09:00 11/12/19 08:59 11/06/19 09:44 Cefepime HCl 1 gm/ Dextrose 55 ml @ 110 mls/hr Q24H IVPB 11/05/19 02:00 11/12/19 01:59 11/06/19 02:44 Dextrose (Dextrose 50%) 25 ml Q30M PRN IV Hypoglycemia 11/04/19 10:45 02/02/20 10:44 Dextrose (Dextrose 50%) 50 ml Q30M PRN IV Hypoglycemia 11/04/19 10:45 02/02/20 10:44 Insulin Aspart (NovoLOG) BEFORE MEALS AND HS SUBQ 11/04/19 11:30 02/02/20 11:29 11/04/19 17:38 Woody Bradley MD Nov 06, 2019 10:48
[2019-11-06 12:00] VITALS: BP 118/78
--- NOTE | 2019-11-06 12:04 | Surgery Progress Note ---
Surgery Progress Note Subjective Additional Comments COVID + fever 102.2 resp unchanged imaging reviewed Objective Last 24 Hour Vital Signs Date Time Temp Pulse Resp B/P (MAP) Pulse Ox O2 Delivery O2 Flow Rate FiO2 11/06/19 11:35 81 11/06/19 08:00 97.9 77 20 126/80 (95) 94 11/06/19 07:48 79 11/06/19 04:00 81 11/06/19 04:00 99.4 90 21 131/80 (97) 96 11/06/19 04:00 Nasal Cannula 4.0 11/06/19 00:00 93 11/06/19 00:00 98.8 88 21 101/66 (78) 94 11/06/19 00:00 Nasal Cannula 4.0 11/05/19 23:17 98.8 11/05/19 20:00 Nasal Cannula 4.0 11/05/19 20:00 102.2 94 21 126/83 (97) 93 11/05/19 19:17 88 11/05/19 16:00 98.2 94 21 121/83 (96) 95 11/05/19 16:00 81 11/05/19 16:00 Nasal Cannula 4.0 I&O Intake and Output 11/05/19 11/06/19 19:00 07:00 Intake Total 100 ml Output Total 400 ml 600 ml Balance -400 ml -500 ml Intake Oral 100 ml Output Urine Total 400 ml 600 ml # Voids 3 2 Dressing: other Wound: other Drains: other Cardiovascular: RSR Respiratory: decreased breath sounds Abdomen: soft, non-tender, present bowel sounds Extremities: no cyanosis Laboratory Tests Test 11/06/19 08:45 White Blood Count 5.0 K/UL (4.8-10.8) Red Blood Count 4.90 M/UL (4.20-5.40) Hemoglobin 14.5 G/DL (12.0-16.0) Hematocrit 43.5 % (37.0-47.0) Mean Corpuscular Volume 89 FL (80-99) Mean Corpuscular Hemoglobin 29.6 PG (27.0-31.0) Mean Corpuscular Hemoglobin Concent 33.3 G/DL (32.0-36.0) Red Cell Distribution Width 13.2 % (11.6-14.8) Platelet Count 176 K/UL (150-450) Mean Platelet Volume 5.7 FL (6.5-10.1) L Neutrophils (%) (Auto) 54.1 % (45.0-75.0) Lymphocytes (%) (Auto) 35.6 % (20.0-45.0) Monocytes (%) (Auto) 9.5 % (1.0-10.0) Eosinophils (%) (Auto) 0.0 % (0.0-3.0) Basophils (%) (Auto) 0.7 % (0.0-2.0) Sodium Level 147 MMOL/L (136-145) H Potassium Level 3.3 MMOL/L (3.5-5.1) L Chloride Level 109 MMOL/L (98-107) H Carbon Dioxide Level 27 MMOL/L (21-32) Anion Gap 11 mmol/L (5-15) Blood Urea Nitrogen 18 mg/dL (7-18) Creatinine 0.8 MG/DL (0.55-1.30) Estimat Glomerular Filtration Rate > 60 mL/min (>60) Glucose Level 129 MG/DL (74-106) H Calcium Level 8.4 MG/DL (8.5-10.1) L Plan Problems: (1) Hypoxia Assessment & Plan: supplemental O2 monitor closely (2) UTI (urinary tract infection) (3) Suspected 2019 novel coronavirus infection (4) Pneumonia due to COVID-19 virus Assessment & Plan: The heart is borderline enlarged. There are bilateral interstitial opacities diffusely. No definite focal airspace consolidation. The pleural spaces are clear. Impression: Borderline cardiomegaly. Bilateral interstitial disease. This is nonspecific, could indicate infiltrates, edema, among other possibilities pending swab (5) Fever (6) Anemia (7) Confusion (8) Diabetes (9) Renal failure (10) Malnutrition (11) HTN (hypertension) (12) CVA (cerebral vascular accident) (13) Decubitus skin ulcer Assessment & Plan: Pt presented on admission with DTPI L ischium. Base of wound is purple, indurated. An area of hyperpigmentation noted distally but in close to wound bed. Non-blanching erythema cleft of buttocks. Hyperpigmentation from previous wound noted to R ischium. Within area of hyperpigmentation an area of non-blanchable erythema noted. No other skin concerns noted. Tx.Plan: Apply Moisture Barrier Paste to Sacrum. Cover with Optifoam drsg. Change every 3 days and prn. Apply Moisture Barrier Paste to R and L Ischium. Cover each area with Optifoam drsg. Change every 3 days and prn. Apply Cavilon Skin Barrier to both heels. Cover each heel with Optifoam drsg. Change every 7 days and prn. Reposition at least every 2hours or as tolerated. Off-load heels with Pillow. Humble Sewell Nov 06, 2019 12:04
--- NOTE | 2019-11-06 12:31 | Infectious Diseases Prog Note ---
Assessment/Plan Assessment/Plan Assessment: Sepsis Fever- r/o COVID19, high suspicion (pt from [facility] w confirmed cases) Acute hypoxic respiratory failure- s/p simple mask, now on 4L NC Pnuemonia -11/05 CXR: Slight worsening of bilateral right greater than left interstitial and airspace opacities, over 3 days. Most likely pneumonia but pulmonary edema also a possibility -11/02 CXR: Borderline cardiomegaly. Bilateral interstitial disease. This is nonspecific, could indicate infiltrates, edema, among other possibilities -Influenza sc neg -Bcx NTD No leukocytosis UTI -u/a wbc tnct, nit neg, leuk +3; ucx >100k E.coli (hernandes S), >100kGNR #2 Elevated AST Dm2 HTN CVA [facility] resident ([facility]) Plan: - Cefepime#3 (abx d #4) pending ucx -Continue azithromycin #4/5 -Will not start Plaquenil as not recommended by IDSA and NIH guidelines -11/03 SP Ceftriaxone #2 -f/u cx -Monitor CBC/CMP, temperaturse -ferritin, CMP, CRP am Thank you for consulting [facility]. Will continue to follow along wiht you. Subjective Allergies: Coded Allergies: SULFAMETHOXAZOLE (Verified Allergy, Unknown, 11/03/19) TRIMETHOPRIM (Verified Allergy, Unknown, 11/03/19) Subjective Tm 100.2 at 4l nC no leukocytosis COVID positive Objective Vital Signs Last 24 Hour Vital Signs Date Time Temp Pulse Resp B/P (MAP) Pulse Ox O2 Delivery O2 Flow Rate FiO2 11/06/19 12:00 Nasal Cannula 4.0 11/06/19 11:35 81 11/06/19 08:00 Nasal Cannula 4.0 11/06/19 08:00 97.9 77 20 126/80 (95) 94 11/06/19 07:48 79 11/06/19 04:00 81 11/06/19 04:00 99.4 90 21 131/80 (97) 96 11/06/19 04:00 Nasal Cannula 4.0 11/06/19 00:00 93 11/06/19 00:00 98.8 88 21 101/66 (78) 94 11/06/19 00:00 Nasal Cannula 4.0 11/05/19 23:17 98.8 11/05/19 20:00 Nasal Cannula 4.0 11/05/19 20:00 102.2 94 21 126/83 (97) 93 11/05/19 19:17 88 11/05/19 16:00 98.2 94 21 121/83 (96) 95 11/05/19 16:00 81 11/05/19 16:00 Nasal Cannula 4.0 Height (Feet): 5 Height (Inches): 3.00 Weight (Pounds): 145 Objective not examined to limit covid exposure Microbiology Date/Time Source Procedure Growth Status 11/03/19 22:22 Blood Blood Culture - Preliminary NO GROWTH AFTER 48 HOURS Resulted 11/03/19 22:00 Blood Blood Culture - Preliminary NO GROWTH AFTER 48 HOURS Resulted 11/03/19 22:22 Nasal Nares MRSA Culture - Final NO METHICILLIN RESISTANT STAPH AUREUS... Complete 11/03/19 22:22 Nasal Nares - Final Complete 11/03/19 22:22 Nasal Nares - Final Complete 11/03/19 22:22 Nasopharynx Coronavirus COVID-19 PCR (VANESSA) - Final Complete 11/03/19 22:22 Urine,Clean Catch Urine Culture - Preliminary Escherichia Coli Gram Negative Bacillus 2 Resulted 11/03/19 22:22 Rectum - Final NO CARBAPENEM-RESISTANT ENTEROBACTERI... Complete 11/03/19 22:22 Rectum VRE Culture - Final NO VANCOMYCIN RESISTANT ENTEROCOCCUS ... Complete Laboratory Tests Test 11/06/19 08:45 White Blood Count 5.0 K/UL (4.8-10.8) Red Blood Count 4.90 M/UL (4.20-5.40) Hemoglobin 14.5 G/DL (12.0-16.0) Hematocrit 43.5 % (37.0-47.0) Mean Corpuscular Volume 89 FL (80-99) Mean Corpuscular Hemoglobin 29.6 PG (27.0-31.0) Mean Corpuscular Hemoglobin Concent 33.3 G/DL (32.0-36.0) Red Cell Distribution Width 13.2 % (11.6-14.8) Platelet Count 176 K/UL (150-450) Mean Platelet Volume 5.7 FL (6.5-10.1) L Neutrophils (%) (Auto) 54.1 % (45.0-75.0) Lymphocytes (%) (Auto) 35.6 % (20.0-45.0) Monocytes (%) (Auto) 9.5 % (1.0-10.0) Eosinophils (%) (Auto) 0.0 % (0.0-3.0) Basophils (%) (Auto) 0.7 % (0.0-2.0) Sodium Level 147 MMOL/L (136-145) H Potassium Level 3.3 MMOL/L (3.5-5.1) L Chloride Level 109 MMOL/L (98-107) H Carbon Dioxide Level 27 MMOL/L (21-32) Anion Gap 11 mmol/L (5-15) Blood Urea Nitrogen 18 mg/dL (7-18) Creatinine 0.8 MG/DL (0.55-1.30) Estimat Glomerular Filtration Rate > 60 mL/min (>60) Glucose Level 129 MG/DL (74-106) H Calcium Level 8.4 MG/DL (8.5-10.1) L Current Medications Medications (Trade) Dose Ordered Sig/Maryam Route PRN Reason Start Time Stop Time Status Last Admin Dose Admin Acetaminophen (Tylenol) 650 mg Q6H PRN ORAL MILD PAIN/TEMP >100.5 11/04/19 20:30 12/04/19 20:29 11/05/19 22:47 Aspirin (Ecotrin) 81 mg DAILY ORAL 11/05/19 09:00 12/20/19 08:59 11/06/19 09:43 Azithromycin (Zithromax) 500 mg DAILY ORAL 11/05/19 09:00 11/12/19 08:59 11/06/19 09:44 Cefepime HCl 1 gm/ Dextrose 55 ml @ 110 mls/hr Q24H IVPB 11/05/19 02:00 11/12/19 01:59 11/06/19 02:44 Dextrose (Dextrose 50%) 25 ml Q30M PRN IV Hypoglycemia 11/04/19 10:45 02/02/20 10:44 Dextrose (Dextrose 50%) 50 ml Q30M PRN IV Hypoglycemia 11/04/19 10:45 02/02/20 10:44 Insulin Aspart (NovoLOG) BEFORE MEALS AND HS SUBQ 11/04/19 11:30 02/02/20 11:29 11/06/19 11:21 Jenna Briseno M.D. Nov 06, 2019 12:31
[2019-11-06] MEDS ORDERED: Tubing IV Secondary IV ONE (13:17)
[2019-11-06] MEDS ORDERED: NS 275ml ONE (13:17)
[2019-11-06 16:00] VITALS: BP 122/70
[2019-11-06 20:00] VITALS: BP 117/75
[2019-11-07] VITALS: BP 127/80
[2019-11-07] MEDS: Cefepime HCl 1 GM in D5W 55 ML IVPB SCH (02:05)
[2019-11-07 04:00] VITALS: BP 125/81
[2019-11-07 05:15] LABS: BASOPHILS % (AUTO) 0.7 % (0.0-2.0); HEMATOCRIT 49.5 % (37.0-47.0); MEAN CORPUSCULAR VOLUME 90 FL (80-99); MONOCYTES % (AUTO) 8.1 % (1.0-10.0); NEUTROPHILS % (AUTO) 57.2 % (45.0-75.0); PLATELET COUNT 215 K/UL (150-450); RED BLOOD COUNT 5.52 M/UL (4.20-5.40); RED CELL DISTRIBUTION WIDTH 13.2 % (11.6-14.8); WHITE BLOOD COUNT 5.7 K/UL (4.8-10.8)
[2019-11-07 05:31] LABS: ALANINE AMINOTRANSFERASE 106 U/L (12-78); ALBUMIN 3.1 G/DL (3.4-5.0); ALBUMIN/GLOBULIN RATIO 0.4 (1.0-2.7); ALKALINE PHOSPHATASE 89 U/L (46-116); ANION GAP 10 mmol/L (5-15); ASPARTATE AMINO TRANSFERASE 222 U/L (15-37); BILIRUBIN,TOTAL 0.4 MG/DL (0.2-1.0); BLOOD UREA NITROGEN 20 mg/dL (7-18); CALCIUM 9.2 MG/DL (8.5-10.1); CARBON DIOXIDE 27 MMOL/L (21-32); CHLORIDE 108 MMOL/L (98-107); CREATININE 0.9 MG/DL (0.55-1.30); POTASSIUM 4.2 MMOL/L (3.5-5.1); SODIUM 145 MMOL/L (136-145)
[2019-11-07] MEDS: NovoLOG Insulin Flexpen SUBQ SCH ×4 (06:30→21:00)
[2019-11-07 08:00] VITALS: BP 126/88
[2019-11-07] MEDS: Aspirin EC 81mg tab ORAL SCH (09:26)
[2019-11-07] MEDS: Azithromycin 250mg tab ORAL SCH (09:26)
[2019-11-07 12:00] VITALS: BP 119/87
--- NOTE | 2019-11-07 12:29 | General Progress Note ---
Assessment/Plan Problem List: (1) Malnutrition ICD Codes: E46 - Unspecified protein-calorie malnutrition SNOMED: 97539226 (2) Anemia ICD Codes: D64.9 - Anemia, unspecified SNOMED: 767043759 (3) Fever ICD Codes: R50.9 - Fever, unspecified SNOMED: 631469906 (4) CVA (cerebral vascular accident) ICD Codes: I63.9 - Cerebral infarction, unspecified SNOMED: 933529852 (5) HTN (hypertension) ICD Codes: I10 - Essential (primary) hypertension SNOMED: 30859599 (6) Diabetes ICD Codes: E11.9 - Type 2 diabetes mellitus without complications SNOMED: 59670180 (7) Renal failure ICD Codes: N19 - Unspecified kidney failure SNOMED: 52497511 (8) Confusion ICD Codes: R41.0 - Disorientation, unspecified SNOMED: 681136972 (9) Hypoxia ICD Codes: R09.02 - Hypoxemia SNOMED: 934252802 (10) Suspected 2019 novel coronavirus infection ICD Codes: R68.89 - Other general symptoms and signs SNOMED: 270856491 Status: unchanged Assessment/Plan: o2 pulm tx abx bp bs control cbc bmp am Subjective Constitutional: Reports: weakness Allergies: Coded Allergies: SULFAMETHOXAZOLE (Verified Allergy, Unknown, 11/03/19) TRIMETHOPRIM (Verified Allergy, Unknown, 11/03/19) All Systems: reviewed and negative except above Subjective o2nc sleepy Objective Last 24 Hour Vital Signs Date Time Temp Pulse Resp B/P (MAP) Pulse Ox O2 Delivery O2 Flow Rate FiO2 11/07/19 12:00 Nasal Cannula 4.0 11/07/19 08:00 97.7 76 18 126/88 (101) 98 11/07/19 08:00 Nasal Cannula 4.0 11/07/19 07:50 77 11/07/19 04:00 98.9 80 21 125/81 (96) 92 11/07/19 04:00 Nasal Cannula 4.0 11/07/19 04:00 83 11/07/19 00:00 Nasal Cannula 4.0 11/07/19 00:00 98.5 81 21 127/80 (96) 92 11/07/19 00:00 86 11/06/19 22:04 99.8 11/06/19 20:00 Nasal Cannula 4.0 11/06/19 20:00 100.5 91 21 117/75 (89) 94 11/06/19 19:04 95 11/06/19 16:00 97.7 81 21 122/70 (87) 93 11/06/19 16:00 Nasal Cannula 4.0 11/06/19 16:00 77 Intake and Output 11/06/19 11/07/19 19:00 07:00 Intake Total 580 ml 300 ml Output Total 450 ml Balance 130 ml 300 ml Intake Oral 580 ml 300 ml Output Urine Total 450 ml # Voids 2 2 # Bowel Movements 1 1 Laboratory Tests 11/07/19 04:00: White Blood Count 5.7, Red Blood Count 5.52H, Hemoglobin 16.0, Hematocrit 49.5H , Mean Corpuscular Volume 90, Mean Corpuscular Hemoglobin 29.0, Mean Corpuscular Hemoglobin Concent 32.4, Red Cell Distribution Width 13.2, Platelet Count 215, Mean Platelet Volume 5.8L, Neutrophils (%) (Auto) 57.2, Lymphocytes ( %) (Auto) 34.0, Monocytes (%) (Auto) 8.1, Eosinophils (%) (Auto) 0.0, Basophils (%) (Auto) 0.7, Sodium Level 145, Potassium Level 4.2, Chloride Level 108H, Carbon Dioxide Level 27, Anion Gap 10, Blood Urea Nitrogen 20H, Creatinine 0.9, Estimat Glomerular Filtration Rate > 60, Glucose Level 111H, Calcium Level 9.2, Ferritin 841H, Total Bilirubin 0.4, Aspartate Amino Transf (AST/SGOT) 222H, Alanine Aminotransferase (ALT/SGPT) 106H, Alkaline Phosphatase 89, C-Reactive Protein, Quantitative 7.1H, Total Protein 10.0H, Albumin 3.1L, Globulin 6.9, Albumin/Globulin Ratio 0.4L Height (Feet): 5 Height (Inches): 3.00 Weight (Pounds): 145 General Appearance: lethargic EENT: normal ENT inspection Neck: normal alignment Cardiovascular: normal rate, regular rhythm Respiratory/Chest: no respiratory distress, no accessory muscle use Extremities: normal inspection Skin: normal pigmentation Trevor Cabrera ChiAmintaPatricia Nov 07, 2019 12:28
--- NOTE | 2019-11-07 13:50 | Pulmonology Progress Note ---
Assessment/Plan Assessment/Plan IMPRESSION: 1. UTI. 2. Hypoxemia. 3. Hypertension. 4. Diabetes mellitus. 5. Previous CVA. 6. Cognitive impairment. 7. [facility] resident. 8. Bactrim allergy. 9. COVID 19 positive DISCUSSION: Agree with admission and care. Continue broad-spectrum antibiotics. Ordered oxygen and pulmonary hygiene. 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 Woody Bradley M.D. Subjective Interval Events: On 4L/min O2; none new Constitutional: Reports: no symptoms HEENT: Repors: no symptoms Respiratory: Reports: no symptoms Cardiovascular: Reports: no symptoms Gastrointestinal/Abdominal: Reports: no symptoms Allergies: Coded Allergies: SULFAMETHOXAZOLE (Verified Allergy, Unknown, 11/03/19) TRIMETHOPRIM (Verified Allergy, Unknown, 11/03/19) All Systems: reviewed and negative except above Objective Last 24 Hour Vital Signs Date Time Temp Pulse Resp B/P (MAP) Pulse Ox O2 Delivery O2 Flow Rate FiO2 11/07/19 12:00 Nasal Cannula 4.0 11/07/19 12:00 98.0 75 19 119/87 (98) 96 11/07/19 11:27 85 11/07/19 08:00 97.7 76 18 126/88 (101) 98 11/07/19 08:00 Nasal Cannula 4.0 11/07/19 07:50 77 11/07/19 04:00 98.9 80 21 125/81 (96) 92 11/07/19 04:00 Nasal Cannula 4.0 11/07/19 04:00 83 11/07/19 00:00 Nasal Cannula 4.0 11/07/19 00:00 98.5 81 21 127/80 (96) 92 11/07/19 00:00 86 11/06/19 22:04 99.8 11/06/19 20:00 Nasal Cannula 4.0 11/06/19 20:00 100.5 91 21 117/75 (89) 94 11/06/19 19:04 95 11/06/19 16:00 97.7 81 21 122/70 (87) 93 11/06/19 16:00 Nasal Cannula 4.0 11/06/19 16:00 77 Intake and Output 11/06/19 11/07/19 19:00 07:00 Intake Total 580 ml 300 ml Output Total 450 ml Balance 130 ml 300 ml Intake Oral 580 ml 300 ml Output Urine Total 450 ml # Voids 2 2 # Bowel Movements 1 1 General Appearance: no acute distress HEENT: mucous membranes moist Respiratory/Chest: chest wall non-tender, decreased breath sounds Cardiovascular: normal peripheral pulses Abdomen: normal bowel sounds Extremities: no cyanosis Neurologic/Psychiatric: alert, responsive Laboratory Tests 11/07/19 04:00: White Blood Count 5.7, Red Blood Count 5.52H, Hemoglobin 16.0, Hematocrit 49.5H , Mean Corpuscular Volume 90, Mean Corpuscular Hemoglobin 29.0, Mean Corpuscular Hemoglobin Concent 32.4, Red Cell Distribution Width 13.2, Platelet Count 215, Mean Platelet Volume 5.8L, Neutrophils (%) (Auto) 57.2, Lymphocytes ( %) (Auto) 34.0, Monocytes (%) (Auto) 8.1, Eosinophils (%) (Auto) 0.0, Basophils (%) (Auto) 0.7, Sodium Level 145, Potassium Level 4.2, Chloride Level 108H, Carbon Dioxide Level 27, Anion Gap 10, Blood Urea Nitrogen 20H, Creatinine 0.9, Estimat Glomerular Filtration Rate > 60, Glucose Level 111H, Calcium Level 9.2, Ferritin 841H, Total Bilirubin 0.4, Aspartate Amino Transf (AST/SGOT) 222H, Alanine Aminotransferase (ALT/SGPT) 106H, Alkaline Phosphatase 89, C-Reactive Protein, Quantitative 7.1H, Total Protein 10.0H, Albumin 3.1L, Globulin 6.9, Albumin/Globulin Ratio 0.4L Current Medications Medications (Trade) Dose Ordered Sig/Maryam Route PRN Reason Start Time Stop Time Status Last Admin Dose Admin Acetaminophen (Tylenol) 650 mg Q6H PRN ORAL MILD PAIN/TEMP >100.5 11/04/19 20:30 12/04/19 20:29 11/06/19 21:34 Aspirin (Ecotrin) 81 mg DAILY ORAL 11/05/19 09:00 12/20/19 08:59 11/07/19 09:26 Azithromycin (Zithromax) 500 mg DAILY ORAL 11/05/19 09:00 11/12/19 08:59 11/07/19 09:26 Cefepime HCl 1 gm/ Dextrose 55 ml @ 110 mls/hr Q24H IVPB 11/05/19 02:00 11/12/19 01:59 11/07/19 02:05 Dextrose (Dextrose 50%) 25 ml Q30M PRN IV Hypoglycemia 11/04/19 10:45 02/02/20 10:44 Dextrose (Dextrose 50%) 50 ml Q30M PRN IV Hypoglycemia 11/04/19 10:45 02/02/20 10:44 Insulin Aspart (NovoLOG) BEFORE MEALS AND HS SUBQ 11/04/19 11:30 02/02/20 11:29 11/06/19 20:36 Woody Bradley MD Nov 07, 2019 13:50
--- NOTE | 2019-11-07 14:08 | Surgery Progress Note ---
Surgery Progress Note Subjective Additional Comments does not follow commands restraint but stable labs noted afebrile, HD stab ecomfrtable Objective Last 24 Hour Vital Signs Date Time Temp Pulse Resp B/P (MAP) Pulse Ox O2 Delivery O2 Flow Rate FiO2 11/07/19 12:00 Nasal Cannula 4.0 11/07/19 12:00 98.0 75 19 119/87 (98) 96 11/07/19 11:27 85 11/07/19 08:00 97.7 76 18 126/88 (101) 98 11/07/19 08:00 Nasal Cannula 4.0 11/07/19 07:50 77 11/07/19 04:00 98.9 80 21 125/81 (96) 92 11/07/19 04:00 Nasal Cannula 4.0 11/07/19 04:00 83 11/07/19 00:00 Nasal Cannula 4.0 11/07/19 00:00 98.5 81 21 127/80 (96) 92 11/07/19 00:00 86 11/06/19 22:04 99.8 11/06/19 20:00 Nasal Cannula 4.0 11/06/19 20:00 100.5 91 21 117/75 (89) 94 11/06/19 19:04 95 11/06/19 16:00 97.7 81 21 122/70 (87) 93 11/06/19 16:00 Nasal Cannula 4.0 11/06/19 16:00 77 I&O Intake and Output 11/06/19 11/07/19 19:00 07:00 Intake Total 580 ml 300 ml Output Total 450 ml Balance 130 ml 300 ml Intake Oral 580 ml 300 ml Output Urine Total 450 ml # Voids 2 2 # Bowel Movements 1 1 Dressing: saturated, other Wound: other Drains: other Cardiovascular: RSR Respiratory: decreased breath sounds Abdomen: non-tender, present bowel sounds Extremities: no tenderness, no cyanosis, other Laboratory Tests Test 11/07/19 04:00 White Blood Count 5.7 K/UL (4.8-10.8) Red Blood Count 5.52 M/UL (4.20-5.40) H Hemoglobin 16.0 G/DL (12.0-16.0) Hematocrit 49.5 % (37.0-47.0) H Mean Corpuscular Volume 90 FL (80-99) Mean Corpuscular Hemoglobin 29.0 PG (27.0-31.0) Mean Corpuscular Hemoglobin Concent 32.4 G/DL (32.0-36.0) Red Cell Distribution Width 13.2 % (11.6-14.8) Platelet Count 215 K/UL (150-450) Mean Platelet Volume 5.8 FL (6.5-10.1) L Neutrophils (%) (Auto) 57.2 % (45.0-75.0) Lymphocytes (%) (Auto) 34.0 % (20.0-45.0) Monocytes (%) (Auto) 8.1 % (1.0-10.0) Eosinophils (%) (Auto) 0.0 % (0.0-3.0) Basophils (%) (Auto) 0.7 % (0.0-2.0) Sodium Level 145 MMOL/L (136-145) Potassium Level 4.2 MMOL/L (3.5-5.1) Chloride Level 108 MMOL/L (98-107) H Carbon Dioxide Level 27 MMOL/L (21-32) Anion Gap 10 mmol/L (5-15) Blood Urea Nitrogen 20 mg/dL (7-18) H Creatinine 0.9 MG/DL (0.55-1.30) Estimat Glomerular Filtration Rate > 60 mL/min (>60) Glucose Level 111 MG/DL (74-106) H Calcium Level 9.2 MG/DL (8.5-10.1) Ferritin 841 NG/ML (8-388) H Total Bilirubin 0.4 MG/DL (0.2-1.0) Aspartate Amino Transf (AST/SGOT) 222 U/L (15-37) H Alanine Aminotransferase (ALT/SGPT) 106 U/L (12-78) H Alkaline Phosphatase 89 U/L (46-116) C-Reactive Protein, Quantitative 7.1 mg/dL (0.00-0.90) H Total Protein 10.0 G/DL (6.4-8.2) H Albumin 3.1 G/DL (3.4-5.0) L Globulin 6.9 g/dL Albumin/Globulin Ratio 0.4 (1.0-2.7) L Plan Problems: (1) Hypoxia Assessment & Plan: supplemental O2 monitor closely (2) UTI (urinary tract infection) (3) Suspected 2019 novel coronavirus infection (4) Pneumonia due to COVID-19 virus Assessment & Plan: The heart is borderline enlarged. There are bilateral interstitial opacities diffusely. No definite focal airspace consolidation. The pleural spaces are clear. Impression: Borderline cardiomegaly. Bilateral interstitial disease. This is nonspecific, could indicate infiltrates, edema, among other possibilities (5) Fever (6) Anemia (7) Confusion (8) Diabetes (9) Renal failure (10) Malnutrition (11) HTN (hypertension) (12) CVA (cerebral vascular accident) (13) Decubitus skin ulcer Assessment & Plan: Pt presented on admission with DTPI L ischium. Base of wound is purple, indurated. An area of hyperpigmentation noted distally but in close to wound bed. Non-blanching erythema cleft of buttocks. Hyperpigmentation from previous wound noted to R ischium. Within area of hyperpigmentation an area of non-blanchable erythema noted. No other skin concerns noted. Tx.Plan: Apply Moisture Barrier Paste to Sacrum. Cover with Optifoam drsg. Change every 3 days and prn. Apply Moisture Barrier Paste to R and L Ischium. Cover each area with Optifoam drsg. Change every 3 days and prn. Apply Cavilon Skin Barrier to both heels. Cover each heel with Optifoam drsg. Change every 7 days and prn. Reposition at least every 2hours or as tolerated. Off-load heels with Pillow. DAILY ESTIMATED NEEDS: Needs based on Wound, DM/ 53kg abw 25-30 kcals/kg 6640-1838 total kcals 1.25-1.5 g protein/kg 66-79 g total protein 25-30 mL/kg 3348-6215 total fluid mLs NUTRITION DIAGNOSIS: * Increased kcal/prot intake needs R/T wound healing as evidenced by admitted w/ DTPI wound @ L ischium, non-blanching erythema at cleft of buttocks. * Altered nutrition related lab values R/T diabetes as evidenced by elev POC glu (174, 102, 151, 123), on NISS. CURRENT DIET:REGULAR PO DIET RECOMMENDATIONS: CCHO med/ texture as tolerated or per [employer] INST[employer]ER ADDITIONAL RECOMMENDATIONS: * Per SNF: HT=61" JF=195xgx * Wound healing: add MVI x 1, Vit C 500mg QD add Syed BID * Texture downgrade for chewing deficit as per RN -> consider pureed * Glucerna x 1 with variable intake (220kcal/10g prot each) Humble Sewell Nov 07, 2019 14:08
[2019-11-07 16:00] VITALS: BP 121/84
[2019-11-07 20:00] VITALS: BP 128/89
[2019-11-08] VITALS (7 sets, daily range): BP systolic 119–129; BP diastolic 62–76
[2019-11-08] MEDS: Cefepime HCl 1 GM in D5W 55 ML IVPB SCH (02:32)
[2019-11-08] MEDS: NovoLOG Insulin Flexpen SUBQ SCH ×4 (05:44→21:00)
[2019-11-08 06:53] LABS: ANION GAP 11 mmol/L (5-15); BLOOD UREA NITROGEN 18 mg/dL (7-18); CALCIUM 9.1 MG/DL (8.5-10.1); CARBON DIOXIDE 23 MMOL/L (21-32); CHLORIDE 110 MMOL/L (98-107); CREATININE 0.9 MG/DL (0.55-1.30); POTASSIUM 4.2 MMOL/L (3.5-5.1); SODIUM 144 MMOL/L (136-145)
[2019-11-08 07:05] LABS: BASOPHILS % (AUTO) 0.5 % (0.0-2.0); HEMATOCRIT 41.9 % (37.0-47.0); MEAN CORPUSCULAR VOLUME 89 FL (80-99); MONOCYTES % (AUTO) 8.4 % (1.0-10.0); PLATELET COUNT 235 K/UL (150-450); RED BLOOD COUNT 4.72 M/UL (4.20-5.40); RED CELL DISTRIBUTION WIDTH 12.9 % (11.6-14.8); WHITE BLOOD COUNT 8.6 K/UL (4.8-10.8)
[2019-11-08] MEDS: Ascorbic Acid 500mg tab ORAL SCH (09:02)
[2019-11-08] MEDS: Aspirin EC 81mg tab ORAL SCH (09:02)
[2019-11-08] MEDS: Azithromycin 250mg tab ORAL SCH (09:02)
--- NOTE | 2019-11-08 09:12 | General Progress Note ---
Assessment/Plan Problem List: (1) Malnutrition ICD Codes: E46 - Unspecified protein-calorie malnutrition SNOMED: 06164104 (2) Anemia ICD Codes: D64.9 - Anemia, unspecified SNOMED: 038841523 (3) Fever ICD Codes: R50.9 - Fever, unspecified SNOMED: 611277381 (4) CVA (cerebral vascular accident) ICD Codes: I63.9 - Cerebral infarction, unspecified SNOMED: 300303147 (5) HTN (hypertension) ICD Codes: I10 - Essential (primary) hypertension SNOMED: 30301291 (6) Diabetes ICD Codes: E11.9 - Type 2 diabetes mellitus without complications SNOMED: 98176382 (7) Renal failure ICD Codes: N19 - Unspecified kidney failure SNOMED: 19754504 (8) Confusion ICD Codes: R41.0 - Disorientation, unspecified SNOMED: 163446354 (9) Hypoxia ICD Codes: R09.02 - Hypoxemia SNOMED: 665214038 (10) Suspected 2019 novel coronavirus infection ICD Codes: R68.89 - Other general symptoms and signs SNOMED: 941489092 Status: unchanged Assessment/Plan: o2 pulm tx abx bp bs control cbc bmp am Subjective Constitutional: Reports: weakness Allergies: Coded Allergies: SULFAMETHOXAZOLE (Verified Allergy, Unknown, 11/03/19) TRIMETHOPRIM (Verified Allergy, Unknown, 11/03/19) All Systems: reviewed and negative except above Subjective o2nc sleepy Objective Last 24 Hour Vital Signs Date Time Temp Pulse Resp B/P (MAP) Pulse Ox O2 Delivery O2 Flow Rate FiO2 11/08/19 04:00 102 11/08/19 04:00 97.8 75 20 119/74 (89) 95 11/08/19 04:00 Nasal Cannula 4.0 11/08/19 00:00 87 11/08/19 00:00 Nasal Cannula 4.0 11/08/19 00:00 98.3 87 20 125/75 (92) 96 11/07/19 20:00 100 11/07/19 20:00 Nasal Cannula 4.0 11/07/19 20:00 97.8 71 20 128/89 (102) 96 11/07/19 16:00 97.9 77 20 121/84 (96) 95 11/07/19 16:00 Nasal Cannula 4.0 11/07/19 15:39 85 11/07/19 12:00 Nasal Cannula 4.0 11/07/19 12:00 98.0 75 19 119/87 (98) 96 11/07/19 11:27 85 Intake and Output 11/07/19 11/08/19 19:00 07:00 Intake Total 450 ml 55 ml Output Total 500 ml Balance 450 ml -445 ml Intake Oral 450 ml IV Total 55 ml Output Urine Total 500 ml # Voids 2 # Bowel Movements 1 Laboratory Tests 11/08/19 04:30: White Blood Count 8.6#, Red Blood Count 4.72, Hemoglobin 14.0, Hematocrit 41.9, Mean Corpuscular Volume 89, Mean Corpuscular Hemoglobin 29.7, Mean Corpuscular Hemoglobin Concent 33.5, Red Cell Distribution Width 12.9, Platelet Count 235, Mean Platelet Volume 5.6L, Neutrophils (%) (Auto) 68.0, Lymphocytes (%) (Auto) 23.0, Monocytes (%) (Auto) 8.4, Eosinophils (%) (Auto) 0.0, Basophils (%) (Auto ) 0.5, Sodium Level 144, Potassium Level 4.2, Chloride Level 110H, Carbon Dioxide Level 23, Anion Gap 11, Blood Urea Nitrogen 18, Creatinine 0.9, Estimat Glomerular Filtration Rate > 60, Glucose Level 105, Calcium Level 9.1 Height (Feet): 5 Height (Inches): 3.00 Weight (Pounds): 145 General Appearance: lethargic EENT: normal ENT inspection Neck: normal alignment Cardiovascular: normal rate, regular rhythm Respiratory/Chest: no respiratory distress, no accessory muscle use Extremities: normal inspection Skin: normal pigmentation Trevor Cabrera DO Nov 08, 2019 09:12
--- NOTE | 2019-11-08 11:26 | Pulmonology Progress Note ---
Assessment/Plan Assessment/Plan IMPRESSION: 1. UTI. 2. Hypoxemia. 3. Hypertension. 4. Diabetes mellitus. 5. Previous CVA. 6. Cognitive impairment. 7. group home resident. 8. Bactrim allergy. 9. COVID 19 positive DISCUSSION: Agree with admission and care. Continue broad-spectrum antibiotics. Ordered oxygen and pulmonary hygiene. I will follow as research technician. Woody Bradley M.D. Subjective Interval Events: On 4L/min O2; none new Constitutional: Reports: no symptoms HEENT: Repors: no symptoms Respiratory: Reports: no symptoms Cardiovascular: Reports: no symptoms Gastrointestinal/Abdominal: Reports: no symptoms Allergies: Coded Allergies: SULFAMETHOXAZOLE (Verified Allergy, Unknown, 11/03/19) TRIMETHOPRIM (Verified Allergy, Unknown, 11/03/19) All Systems: reviewed and negative except above Objective Last 24 Hour Vital Signs Date Time Temp Pulse Resp B/P (MAP) Pulse Ox O2 Delivery O2 Flow Rate FiO2 11/08/19 08:00 Nasal Cannula 4.0 11/08/19 08:00 98.7 70 24 125/65 (85) 97 11/08/19 08:00 84 11/08/19 04:00 102 11/08/19 04:00 97.8 75 20 119/74 (89) 95 11/08/19 04:00 Nasal Cannula 4.0 11/08/19 00:00 87 11/08/19 00:00 Nasal Cannula 4.0 11/08/19 00:00 98.3 87 20 125/75 (92) 96 11/07/19 20:00 100 11/07/19 20:00 Nasal Cannula 4.0 11/07/19 20:00 97.8 71 20 128/89 (102) 96 11/07/19 16:00 97.9 77 20 121/84 (96) 95 11/07/19 16:00 Nasal Cannula 4.0 11/07/19 15:39 85 11/07/19 12:00 Nasal Cannula 4.0 11/07/19 12:00 98.0 75 19 119/87 (98) 96 11/07/19 11:27 85 Intake and Output 4/23/20 4/24/20 19:00 07:00 Intake Total 450 ml 55 ml Output Total 500 ml Balance 450 ml -445 ml Intake Oral 450 ml IV Total 55 ml Output Urine Total 500 ml # Voids 2 # Bowel Movements 1 General Appearance: no acute distress HEENT: mucous membranes moist Respiratory/Chest: chest wall non-tender, decreased breath sounds Cardiovascular: normal peripheral pulses Abdomen: normal bowel sounds Extremities: no cyanosis Neurologic/Psychiatric: alert, responsive Laboratory Tests 11/08/19 04:30: White Blood Count 8.6#, Red Blood Count 4.72, Hemoglobin 14.0, Hematocrit 41.9, Mean Corpuscular Volume 89, Mean Corpuscular Hemoglobin 29.7, Mean Corpuscular Hemoglobin Concent 33.5, Red Cell Distribution Width 12.9, Platelet Count 235, Mean Platelet Volume 5.6L, Neutrophils (%) (Auto) 68.0, Lymphocytes (%) (Auto) 23.0, Monocytes (%) (Auto) 8.4, Eosinophils (%) (Auto) 0.0, Basophils (%) (Auto ) 0.5, Sodium Level 144, Potassium Level 4.2, Chloride Level 110H, Carbon Dioxide Level 23, Anion Gap 11, Blood Urea Nitrogen 18, Creatinine 0.9, Estimat Glomerular Filtration Rate > 60, Glucose Level 105, Calcium Level 9.1 Current Medications Medications (Trade) Dose Ordered Sig/Maryam Route PRN Reason Start Time Stop Time Status Last Admin Dose Admin Acetaminophen (Tylenol) 650 mg Q6H PRN ORAL MILD PAIN/TEMP >100.5 11/04/19 20:30 12/04/19 20:29 11/06/19 21:34 Ascorbic Acid (Vitamin C) 500 mg DAILY ORAL 11/08/19 09:00 12/08/19 08:59 11/08/19 09:02 Aspirin (Ecotrin) 81 mg DAILY ORAL 11/05/19 09:00 12/20/19 08:59 11/08/19 09:02 Azithromycin (Zithromax) 500 mg DAILY ORAL 11/05/19 09:00 11/12/19 08:59 11/08/19 09:02 Cefepime HCl 1 gm/ Dextrose 55 ml @ 110 mls/hr Q24H IVPB 11/05/19 02:00 11/12/19 01:59 11/08/19 02:32 Dextrose (Dextrose 50%) 25 ml Q30M PRN IV Hypoglycemia 11/04/19 10:45 02/02/20 10:44 Dextrose (Dextrose 50%) 50 ml Q30M PRN IV Hypoglycemia 11/04/19 10:45 02/02/20 10:44 Insulin Aspart (NovoLOG) BEFORE MEALS AND HS SUBQ 11/04/19 11:30 02/02/20 11:29 11/06/19 20:36 Multivitamins (Multivitamins) 1 tab DAILY ORAL 11/08/19 09:00 12/08/19 08:59 11/08/19 09:02 Woody Bradley MD Nov 08, 2019 11:25
--- NOTE | 2019-11-08 12:10 | Infectious Diseases Prog Note ---
Assessment/Plan Assessment/Plan Assessment: Sepsis Fever- r/o COVID19, high suspicion (pt from [facility] w confirmed cases) Acute hypoxic respiratory failure- s/p simple mask, now on 4L NC Pnuemonia -11/05 CXR: Slight worsening of bilateral right greater than left interstitial and airspace opacities, over 3 days. Most likely pneumonia but pulmonary edema also a possibility -11/02 CXR: Borderline cardiomegaly. Bilateral interstitial disease. This is nonspecific, could indicate infiltrates, edema, among other possibilities -Influenza sc neg -Bcx NTD No leukocytosis UTI -u/a wbc tnct, nit neg, leuk +3; ucx >100k E.coli (hernandes S), >100k P.mirabilis ( R. Ceftriaxone, bactrim) Elevated LFTs, worsening Dm2 HTN CVA [facility] resident ([facility]) Plan: - Cefepime#/ for UTI -Continue azithromycin #/ -Will not start Plaquenil as not recommended by IDSA and NIH guidelines -11/03 SP Ceftriaxone #2 -f/u cx -Monitor CBC/CMP, temperaturse -ferritin, CMP, CRP am -CXR am Thank you for consulting [facility]. Will continue to follow along wiht you. Subjective Allergies: Coded Allergies: SULFAMETHOXAZOLE (Verified Allergy, Unknown, 11/03/19) TRIMETHOPRIM (Verified Allergy, Unknown, 11/03/19) Subjective afebrile>36hr at 4LNC no leukocytosis Objective Vital Signs Last 24 Hour Vital Signs Date Time Temp Pulse Resp B/P (MAP) Pulse Ox O2 Delivery O2 Flow Rate FiO2 11/08/19 08:00 Nasal Cannula 4.0 11/08/19 08:00 98.7 70 24 125/65 (85) 97 11/08/19 08:00 84 11/08/19 04:00 102 11/08/19 04:00 97.8 75 20 119/74 (89) 95 11/08/19 04:00 Nasal Cannula 4.0 11/08/19 00:00 87 11/08/19 00:00 Nasal Cannula 4.0 11/08/19 00:00 98.3 87 20 125/75 (92) 96 11/07/19 20:00 100 11/07/19 20:00 Nasal Cannula 4.0 11/07/19 20:00 97.8 71 20 128/89 (102) 96 11/07/19 16:00 97.9 77 20 121/84 (96) 95 11/07/19 16:00 Nasal Cannula 4.0 11/07/19 15:39 85 11/07/19 12:00 Nasal Cannula 4.0 11/07/19 12:00 98.0 75 19 119/87 (98) 96 Height (Feet): 5 Height (Inches): 3.00 Weight (Pounds): 145 Objective not examined to limit covid exposure Laboratory Tests Test 11/08/19 04:30 White Blood Count 8.6 K/UL (4.8-10.8) # Red Blood Count 4.72 M/UL (4.20-5.40) Hemoglobin 14.0 G/DL (12.0-16.0) Hematocrit 41.9 % (37.0-47.0) Mean Corpuscular Volume 89 FL (80-99) Mean Corpuscular Hemoglobin 29.7 PG (27.0-31.0) Mean Corpuscular Hemoglobin Concent 33.5 G/DL (32.0-36.0) Red Cell Distribution Width 12.9 % (11.6-14.8) Platelet Count 235 K/UL (150-450) Mean Platelet Volume 5.6 FL (6.5-10.1) L Neutrophils (%) (Auto) 68.0 % (45.0-75.0) Lymphocytes (%) (Auto) 23.0 % (20.0-45.0) Monocytes (%) (Auto) 8.4 % (1.0-10.0) Eosinophils (%) (Auto) 0.0 % (0.0-3.0) Basophils (%) (Auto) 0.5 % (0.0-2.0) Sodium Level 144 MMOL/L (136-145) Potassium Level 4.2 MMOL/L (3.5-5.1) Chloride Level 110 MMOL/L (98-107) H Carbon Dioxide Level 23 MMOL/L (21-32) Anion Gap 11 mmol/L (5-15) Blood Urea Nitrogen 18 mg/dL (7-18) Creatinine 0.9 MG/DL (0.55-1.30) Estimat Glomerular Filtration Rate > 60 mL/min (>60) Glucose Level 105 MG/DL (74-106) Calcium Level 9.1 MG/DL (8.5-10.1) Current Medications Medications (Trade) Dose Ordered Sig/Maryam Route PRN Reason Start Time Stop Time Status Last Admin Dose Admin Acetaminophen (Tylenol) 650 mg Q6H PRN ORAL MILD PAIN/TEMP >100.5 11/04/19 20:30 12/04/19 20:29 11/06/19 21:34 Ascorbic Acid (Vitamin C) 500 mg DAILY ORAL 11/08/19 09:00 12/08/19 08:59 11/08/19 09:02 Aspirin (Ecotrin) 81 mg DAILY ORAL 11/05/19 09:00 12/20/19 08:59 11/08/19 09:02 Azithromycin (Zithromax) 500 mg DAILY ORAL 11/05/19 09:00 11/12/19 08:59 11/08/19 09:02 Cefepime HCl 1 gm/ Dextrose 55 ml @ 110 mls/hr Q24H IVPB 11/05/19 02:00 11/12/19 01:59 11/08/19 02:32 Dextrose (Dextrose 50%) 25 ml Q30M PRN IV Hypoglycemia 11/04/19 10:45 02/02/20 10:44 Dextrose (Dextrose 50%) 50 ml Q30M PRN IV Hypoglycemia 11/04/19 10:45 02/02/20 10:44 Insulin Aspart (NovoLOG) BEFORE MEALS AND HS SUBQ 11/04/19 11:30 02/02/20 11:29 11/06/19 20:36 Multivitamins (Multivitamins) 1 tab DAILY ORAL 11/08/19 09:00 12/08/19 08:59 11/08/19 09:02 Jenna Briseno M.D. Nov 08, 2019 12:10
--- NOTE | 2019-11-08 13:26 | Surgery Progress Note ---
Surgery Progress Note Subjective Additional Comments no acute events comfortable stable labs reviewd Objective Last 24 Hour Vital Signs Date Time Temp Pulse Resp B/P (MAP) Pulse Ox O2 Delivery O2 Flow Rate FiO2 11/08/19 08:00 Nasal Cannula 4.0 11/08/19 08:00 98.7 70 24 125/65 (85) 97 11/08/19 08:00 84 11/08/19 04:00 102 11/08/19 04:00 97.8 75 20 119/74 (89) 95 11/08/19 04:00 Nasal Cannula 4.0 11/08/19 00:00 87 11/08/19 00:00 Nasal Cannula 4.0 11/08/19 00:00 98.3 87 20 125/75 (92) 96 11/07/19 20:00 100 11/07/19 20:00 Nasal Cannula 4.0 11/07/19 20:00 97.8 71 20 128/89 (102) 96 11/07/19 16:00 97.9 77 20 121/84 (96) 95 11/07/19 16:00 Nasal Cannula 4.0 11/07/19 15:39 85 I&O Intake and Output 11/07/19 11/08/19 19:00 07:00 Intake Total 450 ml 55 ml Output Total 500 ml Balance 450 ml -445 ml Intake Oral 450 ml IV Total 55 ml Output Urine Total 500 ml # Voids 2 # Bowel Movements 1 Dressing: other Wound: other Drains: other Cardiovascular: RSR Respiratory: decreased breath sounds Abdomen: non-tender, present bowel sounds Extremities: no tenderness, no cyanosis, other Laboratory Tests Test 11/08/19 04:30 White Blood Count 8.6 K/UL (4.8-10.8) # Red Blood Count 4.72 M/UL (4.20-5.40) Hemoglobin 14.0 G/DL (12.0-16.0) Hematocrit 41.9 % (37.0-47.0) Mean Corpuscular Volume 89 FL (80-99) Mean Corpuscular Hemoglobin 29.7 PG (27.0-31.0) Mean Corpuscular Hemoglobin Concent 33.5 G/DL (32.0-36.0) Red Cell Distribution Width 12.9 % (11.6-14.8) Platelet Count 235 K/UL (150-450) Mean Platelet Volume 5.6 FL (6.5-10.1) L Neutrophils (%) (Auto) 68.0 % (45.0-75.0) Lymphocytes (%) (Auto) 23.0 % (20.0-45.0) Monocytes (%) (Auto) 8.4 % (1.0-10.0) Eosinophils (%) (Auto) 0.0 % (0.0-3.0) Basophils (%) (Auto) 0.5 % (0.0-2.0) Sodium Level 144 MMOL/L (136-145) Potassium Level 4.2 MMOL/L (3.5-5.1) Chloride Level 110 MMOL/L (98-107) H Carbon Dioxide Level 23 MMOL/L (21-32) Anion Gap 11 mmol/L (5-15) Blood Urea Nitrogen 18 mg/dL (7-18) Creatinine 0.9 MG/DL (0.55-1.30) Estimat Glomerular Filtration Rate > 60 mL/min (>60) Glucose Level 105 MG/DL (74-106) Calcium Level 9.1 MG/DL (8.5-10.1) Plan Problems: (1) Hypoxia Assessment & Plan: supplemental O2 monitor closely (2) UTI (urinary tract infection) (3) Suspected 2019 novel coronavirus infection (4) Pneumonia due to COVID-19 virus Assessment & Plan: The heart is borderline enlarged. There are bilateral interstitial opacities diffusely. No definite focal airspace consolidation. The pleural spaces are clear. Impression: Borderline cardiomegaly. Bilateral interstitial disease. This is nonspecific, could indicate infiltrates, edema, among other possibilities (5) Fever (6) Anemia (7) Confusion (8) Diabetes (9) Renal failure (10) Malnutrition (11) HTN (hypertension) (12) CVA (cerebral vascular accident) (13) Decubitus skin ulcer Assessment & Plan: Pt presented on admission with DTPI L ischium. Base of wound is purple, indurated. An area of hyperpigmentation noted distally but in close to wound bed. Non-blanching erythema cleft of buttocks. Hyperpigmentation from previous wound noted to R ischium. Within area of hyperpigmentation an area of non-blanchable erythema noted. No other skin concerns noted. Tx.Plan: Apply Moisture Barrier Paste to Sacrum. Cover with Optifoam drsg. Change every 3 days and prn. Apply Moisture Barrier Paste to R and L Ischium. Cover each area with Optifoam drsg. Change every 3 days and prn. Apply Cavilon Skin Barrier to both heels. Cover each heel with Optifoam drsg. Change every 7 days and prn. Reposition at least every 2hours or as tolerated. Off-load heels with Pillow. DAILY ESTIMATED NEEDS: Needs based on Wound, DM/ 53kg abw 25-30 kcals/kg 2374-3074 total kcals 1.25-1.5 g protein/kg 66-79 g total protein 25-30 mL/kg 1605-0856 total fluid mLs NUTRITION DIAGNOSIS: * Increased kcal/prot intake needs R/T wound healing as evidenced by admitted w/ DTPI wound @ L ischium, non-blanching erythema at cleft of buttocks. * Altered nutrition related lab values R/T diabetes as evidenced by elev POC glu (174, 102, 151, 123), on NISS. CURRENT DIET:REGULAR PO DIET RECOMMENDATIONS: CCHO med/ texture as tolerated or per ELECTRICIAN SECOND ADDITIONAL RECOMMENDATIONS: * Per SNF: HT=61" [id number] * Wound healing: add MVI x 1, Vit C 500mg QD add Syed BID * Texture downgrade for chewing deficit as per RN -> consider pureed * Glucerna x 1 with variable intake (220kcal/10g prot each) Humble Sewell Nov 08, 2019 13:26
[2019-11-08] MEDS ORDERED: NS 275ml ONE (15:42)
[2019-11-09] VITALS: BP 125/76
[2019-11-09] MEDS: Cefepime HCl 1 GM in D5W 55 ML IVPB SCH (01:19)
[2019-11-09 04:00] VITALS: BP 106/70
[2019-11-09 04:12] LABS: BASOPHILS % (AUTO) 0.3 % (0.0-2.0); EOSINOPHILS % (AUTO) 0.2 % (0.0-3.0); HEMATOCRIT 43.7 % (37.0-47.0); HEMOGLOBIN 14.1 G/DL (12.0-16.0); LYMPHOCYTES % (AUTO) 21.6 % (20.0-45.0); MEAN CORPUSCULAR VOLUME 88 FL (80-99); MONOCYTES % (AUTO) 8.8 % (1.0-10.0); NEUTROPHILS % (AUTO) 69.2 % (45.0-75.0); PLATELET COUNT 274 K/UL (150-450); RED BLOOD COUNT 4.93 M/UL (4.20-5.40); RED CELL DISTRIBUTION WIDTH 12.8 % (11.6-14.8); WHITE BLOOD COUNT 9.6 K/UL (4.8-10.8)
[2019-11-09 05:02] LABS: ALANINE AMINOTRANSFERASE 71 U/L (12-78); ALBUMIN 2.6 G/DL (3.4-5.0); ALBUMIN/GLOBULIN RATIO 0.4 (1.0-2.7); ALKALINE PHOSPHATASE 79 U/L (46-116); ANION GAP 10 mmol/L (5-15); ASPARTATE AMINO TRANSFERASE 110 U/L (15-37); BILIRUBIN,TOTAL 0.6 MG/DL (0.2-1.0); BLOOD UREA NITROGEN 19 mg/dL (7-18); CALCIUM 8.8 MG/DL (8.5-10.1); CARBON DIOXIDE 27 MMOL/L (21-32); CHLORIDE 113 MMOL/L (98-107); CREATININE 0.8 MG/DL (0.55-1.30); FERRITIN 568 NG/ML (8-388); POTASSIUM 3.8 MMOL/L (3.5-5.1); SODIUM 150 MMOL/L (136-145)
[2019-11-09] MEDS: NovoLOG Insulin Flexpen SUBQ SCH ×2 (06:07→12:55)
[2019-11-09 08:00] VITALS: BP 132/82
--- NOTE | 2019-11-09 09:10 | General Progress Note ---
Assessment/Plan Problem List: (1) Malnutrition ICD Codes: E46 - Unspecified protein-calorie malnutrition SNOMED: 64233349 (2) Anemia ICD Codes: D64.9 - Anemia, unspecified SNOMED: 936818081 (3) Fever ICD Codes: R50.9 - Fever, unspecified SNOMED: 685460643 (4) CVA (cerebral vascular accident) ICD Codes: I63.9 - Cerebral infarction, unspecified SNOMED: 498114849 (5) HTN (hypertension) ICD Codes: I10 - Essential (primary) hypertension SNOMED: 15476009 (6) Diabetes ICD Codes: E11.9 - Type 2 diabetes mellitus without complications SNOMED: 79473616 (7) Renal failure ICD Codes: N19 - Unspecified kidney failure SNOMED: 43991883 (8) Confusion ICD Codes: R41.0 - Disorientation, unspecified SNOMED: 929861594 (9) Hypoxia ICD Codes: R09.02 - Hypoxemia SNOMED: 238193663 (10) Suspected 2019 novel coronavirus infection ICD Codes: R68.89 - Other general symptoms and signs SNOMED: 184060573 Status: unchanged Assessment/Plan: o2 pulm tx abx bp bs control cbc bmp am Subjective Constitutional: Reports: weakness Allergies: Coded Allergies: SULFAMETHOXAZOLE (Verified Allergy, Unknown, 11/03/19) TRIMETHOPRIM (Verified Allergy, Unknown, 11/03/19) All Systems: reviewed and negative except above Subjective o2nc sleepy Objective Last 24 Hour Vital Signs Date Time Temp Pulse Resp B/P (MAP) Pulse Ox O2 Delivery O2 Flow Rate FiO2 11/09/19 08:00 Non-Rebreather 13.0 11/09/19 04:00 Non-Rebreather 13.0 11/09/19 04:00 98.2 87 20 106/70 (82) 95 11/09/19 03:56 81 11/09/19 00:03 85 11/09/19 00:00 100.1 87 24 125/76 (92) 95 11/09/19 00:00 Non-Rebreather 13.0 11/08/19 20:00 Non-Rebreather 13.0 11/08/19 20:00 92 11/08/19 20:00 98.2 89 20 129/76 (93) 95 11/08/19 19:50 98.2 89 20 129/76 (93) 95 11/08/19 16:00 Nasal Cannula 4.0 11/08/19 16:00 78 11/08/19 16:00 98.3 88 21 126/71 (89) 96 11/08/19 12:00 98.2 74 23 129/62 (84) 96 11/08/19 12:00 84 11/08/19 12:00 Nasal Cannula 4.0 Intake and Output 11/08/19 11/09/19 19:00 07:00 Intake Total 200 ml 175 ml Output Total 300 ml Balance 200 ml -125 ml Intake Oral 200 ml 120 ml IV Total 55 ml Output Urine Total 300 ml # Voids 2 # Bowel Movements 1 Laboratory Tests 11/09/19 03:00: White Blood Count 9.6, Red Blood Count 4.93, Hemoglobin 14.1, Hematocrit 43.7, Mean Corpuscular Volume 88, Mean Corpuscular Hemoglobin 28.6, Mean Corpuscular Hemoglobin Concent 32.3, Red Cell Distribution Width 12.8, Platelet Count 274, Mean Platelet Volume 5.4L, Neutrophils (%) (Auto) 69.2, Lymphocytes (%) (Auto) 21.6, Monocytes (%) (Auto) 8.8, Eosinophils (%) (Auto) 0.2, Basophils (%) (Auto ) 0.3, Fibrinogen 593H, D-Dimer 0.84H, Sodium Level 150H, Potassium Level 3.8, Chloride Level 113H, Carbon Dioxide Level 27, Anion Gap 10, Blood Urea Nitrogen 19H, Creatinine 0.8, Estimat Glomerular Filtration Rate > 60, Glucose Level 107H , Calcium Level 8.8, Ferritin 568H, Total Bilirubin 0.6, Aspartate Amino Transf (AST/SGOT) 110H, Alanine Aminotransferase (ALT/SGPT) 71, Alkaline Phosphatase 79 , C-Reactive Protein, Quantitative 11.2H, Total Protein 9.2H, Albumin 2.6L, Globulin 6.6, Albumin/Globulin Ratio 0.4L Height (Feet): 5 Height (Inches): 3.00 Weight (Pounds): 145 General Appearance: lethargic EENT: normal ENT inspection Neck: normal alignment Cardiovascular: normal rate, regular rhythm Respiratory/Chest: no respiratory distress, no accessory muscle use Extremities: normal inspection Skin: normal pigmentation Trevor Cabrera DO Nov 09, 2019 09:09
[2019-11-09] MEDS ORDERED: NS 275ml ONE (09:55)
[2019-11-09] MEDS ORDERED: Tubing IV Secondary IV ONE (09:55)
[2019-11-09] MEDS: Ascorbic Acid 500mg tab ORAL SCH (10:04)
[2019-11-09] MEDS: Aspirin EC 81mg tab ORAL SCH (10:04)
[2019-11-09 12:00] VITALS: BP 136/78
--- NOTE | 2019-11-09 12:18 | Diagnostic Imaging Report ---
EXAM: XR Chest, 1 View CLINICAL HISTORY: COUGH TECHNIQUE: Frontal view of the chest. COMPARISON: Chest x-ray 11/06/19 805 FINDINGS: Lungs: Interval worsening bilateral airspace opacities, worse in the right lung. Hypoventilatory lungs. Pleural space: Unremarkable. No pneumothorax. Heart: Mild cardiomegaly. Mediastinum: Unremarkable. Bones/joints: Unremarkable. IMPRESSION: Interval worsening bilateral airspace opacities, worse in the right lung.
--- NOTE | 2019-11-09 12:32 | Pulmonology Progress Note ---
Assessment/Plan Assessment/Plan IMPRESSION: 1. UTI. 2. Hypoxemia. 3. Hypertension. 4. Diabetes mellitus. 5. Previous CVA. 6. Cognitive impairment. 7. [facility] resident. 8. Bactrim allergy. 9. COVID 19 positive DISCUSSION: Agree with admission and care. Continue broad-spectrum antibiotics. Ordered oxygen and pulmonary hygiene. I will follow as unstacker. Will review CXR PaO2 64 is actually on room air as she had taken her NRBM off Woody Bradley M.D. Subjective Interval Events: On 15L/min O2; none new Constitutional: Reports: no symptoms HEENT: Repors: no symptoms Respiratory: Reports: no symptoms Cardiovascular: Reports: no symptoms Gastrointestinal/Abdominal: Reports: no symptoms Allergies: Coded Allergies: SULFAMETHOXAZOLE (Verified Allergy, Unknown, 11/03/19) TRIMETHOPRIM (Verified Allergy, Unknown, 11/03/19) All Systems: reviewed and negative except above Objective Last 24 Hour Vital Signs Date Time Temp Pulse Resp B/P (MAP) Pulse Ox O2 Delivery O2 Flow Rate FiO2 11/09/19 08:01 83 11/09/19 08:00 Non-Rebreather 13.0 11/09/19 08:00 98.4 86 20 132/82 (99) 94 11/09/19 04:00 Non-Rebreather 13.0 11/09/19 04:00 98.2 87 20 106/70 (82) 95 11/09/19 03:56 81 11/09/19 00:03 85 11/09/19 00:00 100.1 87 24 125/76 (92) 95 11/09/19 00:00 Non-Rebreather 13.0 11/08/19 20:00 Non-Rebreather 13.0 11/08/19 20:00 92 11/08/19 20:00 98.2 89 20 129/76 (93) 95 11/08/19 19:50 98.2 89 20 129/76 (93) 95 11/08/19 16:00 Nasal Cannula 4.0 11/08/19 16:00 78 11/08/19 16:00 98.3 88 21 126/71 (89) 96 Intake and Output 11/08/19 11/09/19 19:00 07:00 Intake Total 200 ml 175 ml Output Total 300 ml Balance 200 ml -125 ml Intake Oral 200 ml 120 ml IV Total 55 ml Output Urine Total 300 ml # Voids 2 # Bowel Movements 1 General Appearance: no acute distress HEENT: mucous membranes moist Respiratory/Chest: chest wall non-tender, decreased breath sounds Cardiovascular: normal peripheral pulses Abdomen: normal bowel sounds Extremities: no cyanosis Neurologic/Psychiatric: alert, responsive Laboratory Tests 11/09/19 03:00: White Blood Count 9.6, Red Blood Count 4.93, Hemoglobin 14.1, Hematocrit 43.7, Mean Corpuscular Volume 88, Mean Corpuscular Hemoglobin 28.6, Mean Corpuscular Hemoglobin Concent 32.3, Red Cell Distribution Width 12.8, Platelet Count 274, Mean Platelet Volume 5.4L, Neutrophils (%) (Auto) 69.2, Lymphocytes (%) (Auto) 21.6, Monocytes (%) (Auto) 8.8, Eosinophils (%) (Auto) 0.2, Basophils (%) (Auto ) 0.3, Fibrinogen 593H, D-Dimer 0.84H, Sodium Level 150H, Potassium Level 3.8, Chloride Level 113H, Carbon Dioxide Level 27, Anion Gap 10, Blood Urea Nitrogen 19H, Creatinine 0.8, Estimat Glomerular Filtration Rate > 60, Glucose Level 107H , Calcium Level 8.8, Ferritin 568H, Total Bilirubin 0.6, Aspartate Amino Transf (AST/SGOT) 110H, Alanine Aminotransferase (ALT/SGPT) 71, Alkaline Phosphatase 79 , C-Reactive Protein, Quantitative 11.2H, Total Protein 9.2H, Albumin 2.6L, Globulin 6.6, Albumin/Globulin Ratio 0.4L 11/09/19 09:52: Arterial Blood pH 7.389, Arterial Blood Partial Pressure CO2 40.5, Arterial Blood Partial Pressure O2 64.7L, Arterial Blood HCO3 23.9, Arterial Blood Oxygen Saturation 91.5L, Arterial Blood Base Excess -1.0, Faheem Test Positive Current Medications Medications (Trade) Dose Ordered Sig/Maryam Route PRN Reason Start Time Stop Time Status Last Admin Dose Admin Acetaminophen (Tylenol) 650 mg Q6H PRN ORAL MILD PAIN/TEMP >100.5 11/04/19 20:30 12/04/19 20:29 11/06/19 21:34 Ascorbic Acid (Vitamin C) 500 mg DAILY ORAL 11/08/19 09:00 12/08/19 08:59 11/09/19 10:04 Aspirin (Ecotrin) 81 mg DAILY ORAL 11/05/19 09:00 12/20/19 08:59 11/09/19 10:04 Cefepime HCl 1 gm/ Dextrose 55 ml @ 110 mls/hr Q24H IVPB 11/05/19 02:00 11/12/19 01:59 11/09/19 01:19 Dextrose (Dextrose 50%) 25 ml Q30M PRN IV Hypoglycemia 11/04/19 10:45 02/02/20 10:44 Dextrose (Dextrose 50%) 50 ml Q30M PRN IV Hypoglycemia 11/04/19 10:45 02/02/20 10:44 Insulin Aspart (NovoLOG) BEFORE MEALS AND HS SUBQ 11/04/19 11:30 02/02/20 11:29 11/06/19 20:36 Multivitamins (Multivitamins) 1 tab DAILY ORAL 11/08/19 09:00 12/08/19 08:59 11/09/19 10:04 Woody Bradley MD Nov 09, 2019 12:32
[2019-11-09 16:00] VITALS: BP 132/82
--- NOTE | 2019-11-09 17:41 | Infectious Diseases Prog Note ---
Assessment/Plan Assessment/Plan Assessment: Sepsis Fever Acute hypoxic respiratory failure- s/p simple mask, now on NRB Pnuemonia- 2ry to COVID19 -11/08 CXR: Interval worsening bilateral airspace opacities, worse in the right lung. -11/05 CXR: Slight worsening of bilateral right greater than left interstitial and airspace opacities, over 3 days. Most likely pneumonia but pulmonary edema also a possibility -11/02 CXR: Borderline cardiomegaly. Bilateral interstitial disease. This is nonspecific, could indicate infiltrates, edema, among other possibilities SARS-COV2 PCR + -Influenza sc neg -Bcx NTD -Ferritin 568 (11/08)<- 841 (11/06) -CRP 11.2 (11/08) <- 7.1 (11/06) No leukocytosis UTI -u/a wbc tnct, nit neg, leuk +3; ucx >100k E.coli (hernandes S), >100k P.mirabilis ( R. Ceftriaxone, bactrim) Elevated LFTs, worsening Dm2 HTN CVA [facility] resident ([facility]) Plan: - Cefepime#5/ for UTI -Will not start Plaquenil as not recommended by IDSA and NIH guidelines -11/07 SP Azithromycin #5 -11/03 SP Ceftriaxone #2 -f/u cx -Monitor CBC/CMP, temperaturse -Monitor inflammatory markers, CXR -T spot Thank you for consulting [facility]. Will continue to follow along wiht you. Subjective Allergies: Coded Allergies: SULFAMETHOXAZOLE (Verified Allergy, Unknown, 11/03/19) TRIMETHOPRIM (Verified Allergy, Unknown, 11/03/19) Subjective Tm 100.1 now at NRB 13L Objective Vital Signs Last 24 Hour Vital Signs Date Time Temp Pulse Resp B/P (MAP) Pulse Ox O2 Delivery O2 Flow Rate FiO2 11/09/19 16:00 Non-Rebreather 13.0 11/09/19 16:00 Non-Rebreather 13.0 11/09/19 15:13 110 11/09/19 12:53 88 11/09/19 12:00 Non-Rebreather 13.0 11/09/19 12:00 98.2 81 24 136/78 (97) 95 11/09/19 08:01 83 11/09/19 08:00 Non-Rebreather 13.0 11/09/19 08:00 98.4 86 20 132/82 (99) 94 11/09/19 04:00 Non-Rebreather 13.0 11/09/19 04:00 98.2 87 20 106/70 (82) 95 11/09/19 03:56 81 11/09/19 00:03 85 11/09/19 00:00 100.1 87 24 125/76 (92) 95 11/09/19 00:00 Non-Rebreather 13.0 11/08/19 20:00 Non-Rebreather 13.0 11/08/19 20:00 92 11/08/19 20:00 98.2 89 20 129/76 (93) 95 11/08/19 19:50 98.2 89 20 129/76 (93) 95 Height (Feet): 5 Height (Inches): 3.00 Weight (Pounds): 145 Objective not examined to limit covid exposure Laboratory Tests Test 11/09/19 03:00 11/09/19 09:52 White Blood Count 9.6 K/UL (4.8-10.8) Red Blood Count 4.93 M/UL (4.20-5.40) Hemoglobin 14.1 G/DL (12.0-16.0) Hematocrit 43.7 % (37.0-47.0) Mean Corpuscular Volume 88 FL (80-99) Mean Corpuscular Hemoglobin 28.6 PG (27.0-31.0) Mean Corpuscular Hemoglobin Concent 32.3 G/DL (32.0-36.0) Red Cell Distribution Width 12.8 % (11.6-14.8) Platelet Count 274 K/UL (150-450) Mean Platelet Volume 5.4 FL (6.5-10.1) L Neutrophils (%) (Auto) 69.2 % (45.0-75.0) Lymphocytes (%) (Auto) 21.6 % (20.0-45.0) Monocytes (%) (Auto) 8.8 % (1.0-10.0) Eosinophils (%) (Auto) 0.2 % (0.0-3.0) Basophils (%) (Auto) 0.3 % (0.0-2.0) Fibrinogen 593 mg/dL (200-400) H D-Dimer 0.84 mg/L FEU (0.00-0.49) H Sodium Level 150 MMOL/L (136-145) H Potassium Level 3.8 MMOL/L (3.5-5.1) Chloride Level 113 MMOL/L (98-107) H Carbon Dioxide Level 27 MMOL/L (21-32) Anion Gap 10 mmol/L (5-15) Blood Urea Nitrogen 19 mg/dL (7-18) H Creatinine 0.8 MG/DL (0.55-1.30) Estimat Glomerular Filtration Rate > 60 mL/min (>60) Glucose Level 107 MG/DL (74-106) H Calcium Level 8.8 MG/DL (8.5-10.1) Ferritin 568 NG/ML (8-388) H Total Bilirubin 0.6 MG/DL (0.2-1.0) Aspartate Amino Transf (AST/SGOT) 110 U/L (15-37) H Alanine Aminotransferase (ALT/SGPT) 71 U/L (12-78) Alkaline Phosphatase 79 U/L (46-116) C-Reactive Protein, Quantitative 11.2 mg/dL (0.00-0.90) H Total Protein 9.2 G/DL (6.4-8.2) H Albumin 2.6 G/DL (3.4-5.0) L Globulin 6.6 g/dL Albumin/Globulin Ratio 0.4 (1.0-2.7) L Arterial Blood pH 7.389 (7.350-7.450) Arterial Blood Partial Pressure CO2 40.5 mmHg (35.0-45.0) Arterial Blood Partial Pressure O2 64.7 mmHg (75.0-100.0) L Arterial Blood HCO3 23.9 mmol/L (22.0-26.0) Arterial Blood Oxygen Saturation 91.5 % (95-100) L Arterial Blood Base Excess -1.0 (-2-2) Faheem Test Positive Current Medications Medications (Trade) Dose Ordered Sig/Maryam Route PRN Reason Start Time Stop Time Status Last Admin Dose Admin Acetaminophen (Tylenol) 650 mg Q6H PRN ORAL MILD PAIN/TEMP >100.5 11/04/19 20:30 12/04/19 20:29 11/06/19 21:34 Ascorbic Acid (Vitamin C) 500 mg DAILY ORAL 11/08/19 09:00 12/08/19 08:59 11/09/19 10:04 Aspirin (Ecotrin) 81 mg DAILY ORAL 11/05/19 09:00 12/20/19 08:59 11/09/19 10:04 Cefepime HCl 1 gm/ Dextrose 55 ml @ 110 mls/hr Q24H IVPB 11/05/19 02:00 11/12/19 01:59 11/09/19 01:19 Dextrose (Dextrose 50%) 25 ml Q30M PRN IV Hypoglycemia 11/04/19 10:45 02/02/20 10:44 Dextrose (Dextrose 50%) 50 ml Q30M PRN IV Hypoglycemia 11/04/19 10:45 02/02/20 10:44 Multivitamins (Multivitamins) 1 tab DAILY ORAL 11/08/19 09:00 12/08/19 08:59 11/09/19 10:04 Jenna Briseno M.D. Nov 09, 2019 17:41
--- NOTE | 2019-11-09 19:31 | Surgery Progress Note ---
Surgery Progress Note Subjective Additional Comments labs stable no acute events comfortable Objective Last 24 Hour Vital Signs Date Time Temp Pulse Resp B/P (MAP) Pulse Ox O2 Delivery O2 Flow Rate FiO2 11/09/19 16:00 Non-Rebreather 13.0 11/09/19 16:00 Non-Rebreather 13.0 11/09/19 16:00 98.4 102 25 132/82 (99) 92 11/09/19 15:13 110 11/09/19 12:53 88 11/09/19 12:00 Non-Rebreather 13.0 11/09/19 12:00 98.2 81 24 136/78 (97) 95 11/09/19 08:01 83 11/09/19 08:00 Non-Rebreather 13.0 11/09/19 08:00 98.4 86 20 132/82 (99) 94 11/09/19 04:00 Non-Rebreather 13.0 11/09/19 04:00 98.2 87 20 106/70 (82) 95 11/09/19 03:56 81 11/09/19 00:03 85 11/09/19 00:00 100.1 87 24 125/76 (92) 95 11/09/19 00:00 Non-Rebreather 13.0 11/08/19 20:00 Non-Rebreather 13.0 11/08/19 20:00 92 11/08/19 20:00 98.2 89 20 129/76 (93) 95 11/08/19 19:50 98.2 89 20 129/76 (93) 95 I&O Intake and Output 11/08/19 11/09/19 19:00 07:00 Intake Total 200 ml 175 ml Output Total 300 ml Balance 200 ml -125 ml Intake Oral 200 ml 120 ml IV Total 55 ml Output Urine Total 300 ml # Voids 2 # Bowel Movements 1 Dressing: other Wound: other Drains: other Cardiovascular: RSR Respiratory: decreased breath sounds Abdomen: soft, non-tender, present bowel sounds Extremities: no tenderness, no cyanosis Laboratory Tests Test 11/09/19 03:00 11/09/19 09:52 White Blood Count 9.6 K/UL (4.8-10.8) Red Blood Count 4.93 M/UL (4.20-5.40) Hemoglobin 14.1 G/DL (12.0-16.0) Hematocrit 43.7 % (37.0-47.0) Mean Corpuscular Volume 88 FL (80-99) Mean Corpuscular Hemoglobin 28.6 PG (27.0-31.0) Mean Corpuscular Hemoglobin Concent 32.3 G/DL (32.0-36.0) Red Cell Distribution Width 12.8 % (11.6-14.8) Platelet Count 274 K/UL (150-450) Mean Platelet Volume 5.4 FL (6.5-10.1) L Neutrophils (%) (Auto) 69.2 % (45.0-75.0) Lymphocytes (%) (Auto) 21.6 % (20.0-45.0) Monocytes (%) (Auto) 8.8 % (1.0-10.0) Eosinophils (%) (Auto) 0.2 % (0.0-3.0) Basophils (%) (Auto) 0.3 % (0.0-2.0) Fibrinogen 593 mg/dL (200-400) H D-Dimer 0.84 mg/L FEU (0.00-0.49) H Sodium Level 150 MMOL/L (136-145) H Potassium Level 3.8 MMOL/L (3.5-5.1) Chloride Level 113 MMOL/L (98-107) H Carbon Dioxide Level 27 MMOL/L (21-32) Anion Gap 10 mmol/L (5-15) Blood Urea Nitrogen 19 mg/dL (7-18) H Creatinine 0.8 MG/DL (0.55-1.30) Estimat Glomerular Filtration Rate > 60 mL/min (>60) Glucose Level 107 MG/DL (74-106) H Calcium Level 8.8 MG/DL (8.5-10.1) Ferritin 568 NG/ML (8-388) H Total Bilirubin 0.6 MG/DL (0.2-1.0) Aspartate Amino Transf (AST/SGOT) 110 U/L (15-37) H Alanine Aminotransferase (ALT/SGPT) 71 U/L (12-78) Alkaline Phosphatase 79 U/L (46-116) C-Reactive Protein, Quantitative 11.2 mg/dL (0.00-0.90) H Total Protein 9.2 G/DL (6.4-8.2) H Albumin 2.6 G/DL (3.4-5.0) L Globulin 6.6 g/dL Albumin/Globulin Ratio 0.4 (1.0-2.7) L Arterial Blood pH 7.389 (7.350-7.450) Arterial Blood Partial Pressure CO2 40.5 mmHg (35.0-45.0) Arterial Blood Partial Pressure O2 64.7 mmHg (75.0-100.0) L Arterial Blood HCO3 23.9 mmol/L (22.0-26.0) Arterial Blood Oxygen Saturation 91.5 % (95-100) L Arterial Blood Base Excess -1.0 (-2-2) Faheem Test Positive Plan Problems: (1) Hypoxia Assessment & Plan: supplemental O2 monitor closely (2) UTI (urinary tract infection) (3) Suspected 2019 novel coronavirus infection (4) Pneumonia due to COVID-19 virus Assessment & Plan: The heart is borderline enlarged. There are bilateral interstitial opacities diffusely. No definite focal airspace consolidation. The pleural spaces are clear. Impression: Borderline cardiomegaly. Bilateral interstitial disease. This is nonspecific, could indicate infiltrates, edema, among other possibilities (5) Fever (6) Anemia (7) Confusion (8) Diabetes (9) Renal failure (10) Malnutrition (11) HTN (hypertension) (12) CVA (cerebral vascular accident) (13) Decubitus skin ulcer Assessment & Plan: Pt presented on admission with DTPI L ischium. Base of wound is purple, indurated. An area of hyperpigmentation noted distally but in close to wound bed. Non-blanching erythema cleft of buttocks. Hyperpigmentation from previous wound noted to R ischium. Within area of hyperpigmentation an area of non-blanchable erythema noted. No other skin concerns noted. Tx.Plan: Apply Moisture Barrier Paste to Sacrum. Cover with Optifoam drsg. Change every 3 days and prn. Apply Moisture Barrier Paste to R and L Ischium. Cover each area with Optifoam drsg. Change every 3 days and prn. Apply Cavilon Skin Barrier to both heels. Cover each heel with Optifoam drsg. Change every 7 days and prn. Reposition at least every 2hours or as tolerated. Off-load heels with Pillow. DAILY ESTIMATED NEEDS: Needs based on Wound, DM/ 53kg abw 25-30 kcals/kg 7216-9821 total kcals 1.25-1.5 g protein/kg 66-79 g total protein 25-30 mL/kg 3625-4581 total fluid mLs NUTRITION DIAGNOSIS: * Increased kcal/prot intake needs R/T wound healing as evidenced by admitted w/ DTPI wound @ L ischium, non-blanching erythema at cleft of buttocks. * Altered nutrition related lab values R/T diabetes as evidenced by elev POC glu (174, 102, 151, 123), on NISS. CURRENT DIET:REGULAR PO DIET RECOMMENDATIONS: CCHO med/ texture as tolerated or per [employer] ADDITIONAL RECOMMENDATIONS: * Per SNF: HT=61" UY=512nnd * Wound healing: add MVI x 1, Vit C 500mg QD add Syed BID * Texture downgrade for chewing deficit as per RN -> consider pureed * Glucerna x 1 with variable intake (220kcal/10g prot each) Humble Sewell Nov 09, 2019 19:31
[2019-11-09 20:00] VITALS: BP 124/76
[2019-11-10] VITALS: BP 127/74
[2019-11-10] MEDS: Cefepime HCl 1 GM in D5W 55 ML IVPB SCH (02:27)
[2019-11-10 04:00] VITALS: BP 132/84
[2019-11-10 06:01] LABS: BASOPHILS % (AUTO) 0.3 % (0.0-2.0); EOSINOPHILS % (AUTO) 0.1 % (0.0-3.0); HEMATOCRIT 44.2 % (37.0-47.0); HEMOGLOBIN 14.9 G/DL (12.0-16.0); LYMPHOCYTES % (AUTO) 21.3 % (20.0-45.0); MEAN CORPUSCULAR VOLUME 88 FL (80-99); MONOCYTES % (AUTO) 9.6 % (1.0-10.0); NEUTROPHILS % (AUTO) 68.7 % (45.0-75.0); PLATELET COUNT 356 K/UL (150-450); RED CELL DISTRIBUTION WIDTH 12.9 % (11.6-14.8); WHITE BLOOD COUNT 7.3 K/UL (4.8-10.8)
[2019-11-10 06:11] LABS: ANION GAP 13 mmol/L (5-15); BLOOD UREA NITROGEN 32 mg/dL (7-18); CALCIUM 9.5 MG/DL (8.5-10.1); CARBON DIOXIDE 26 MMOL/L (21-32); CHLORIDE 112 MMOL/L (98-107); CREATININE 1.1 MG/DL (0.55-1.30); POTASSIUM 3.5 MMOL/L (3.5-5.1); SODIUM 151 MMOL/L (136-145)
[2019-11-10 08:18] VITALS: BP 132/95
[2019-11-10] MEDS: Ascorbic Acid 500mg tab ORAL SCH (08:21)
[2019-11-10] MEDS: Aspirin EC 81mg tab ORAL SCH (08:21)
--- NOTE | 2019-11-10 08:38 | General Progress Note ---
Assessment/Plan Problem List: (1) Malnutrition ICD Codes: E46 - Unspecified protein-calorie malnutrition SNOMED: 67094683 (2) Anemia ICD Codes: D64.9 - Anemia, unspecified SNOMED: 609470014 (3) Fever ICD Codes: R50.9 - Fever, unspecified SNOMED: 522789291 (4) CVA (cerebral vascular accident) ICD Codes: I63.9 - Cerebral infarction, unspecified SNOMED: 310269953 (5) HTN (hypertension) ICD Codes: I10 - Essential (primary) hypertension SNOMED: 39915277 (6) Diabetes ICD Codes: E11.9 - Type 2 diabetes mellitus without complications SNOMED: 83326182 (7) Renal failure ICD Codes: N19 - Unspecified kidney failure SNOMED: 31402922 (8) Confusion ICD Codes: R41.0 - Disorientation, unspecified SNOMED: 765812841 (9) Hypoxia ICD Codes: R09.02 - Hypoxemia SNOMED: 671733189 (10) Suspected 2019 novel coronavirus infection ICD Codes: R68.89 - Other general symptoms and signs SNOMED: 250693282 Status: unchanged Assessment/Plan: o2 pulm tx abx bp bs control cbc bmp am Subjective Constitutional: Reports: weakness Allergies: Coded Allergies: SULFAMETHOXAZOLE (Verified Allergy, Unknown, 11/03/19) TRIMETHOPRIM (Verified Allergy, Unknown, 11/03/19) All Systems: reviewed and negative except above Subjective calm in bed Objective Last 24 Hour Vital Signs Date Time Temp Pulse Resp B/P (MAP) Pulse Ox O2 Delivery O2 Flow Rate FiO2 11/10/19 08:18 99.9 97 20 132/95 (107) 94 11/10/19 08:00 Non-Rebreather 13.0 11/10/19 04:00 Non-Rebreather 13.0 11/10/19 04:00 83 11/10/19 04:00 98.2 80 20 132/84 (100) 94 11/10/19 00:00 98.1 72 21 127/74 (91) 97 11/10/19 00:00 Non-Rebreather 13.0 11/09/19 23:49 91 11/09/19 20:00 Non-Rebreather 13.0 11/09/19 20:00 98.0 94 20 124/76 (92) 95 11/09/19 19:20 91 11/09/19 16:00 Non-Rebreather 13.0 11/09/19 16:00 Non-Rebreather 13.0 11/09/19 16:00 98.4 102 25 132/82 (99) 92 11/09/19 15:13 110 11/09/19 12:53 88 11/09/19 12:00 Non-Rebreather 13.0 11/09/19 12:00 98.2 81 24 136/78 (97) 95 Intake and Output 11/09/19 11/10/19 19:00 07:00 Intake Total 250 ml 260 ml Output Total 400 ml 500 ml Balance -150 ml -240 ml Intake Oral 250 ml 150 ml IV Total 110 ml Output Urine Total 400 ml 500 ml # Voids 3 # Bowel Movements 1 Laboratory Tests 11/09/19 09:52: Arterial Blood pH 7.389, Arterial Blood Partial Pressure CO2 40.5, Arterial Blood Partial Pressure O2 64.7L, Arterial Blood HCO3 23.9, Arterial Blood Oxygen Saturation 91.5L, Arterial Blood Base Excess -1.0, Faheem Test Positive 11/10/19 05:00: White Blood Count 7.3, Red Blood Count 5.00, Hemoglobin 14.9, Hematocrit 44.2, Mean Corpuscular Volume 88, Mean Corpuscular Hemoglobin 29.9, Mean Corpuscular Hemoglobin Concent 33.8, Red Cell Distribution Width 12.9, Platelet Count 356, Mean Platelet Volume 4.9L, Neutrophils (%) (Auto) 68.7, Lymphocytes (%) (Auto) 21.3, Monocytes (%) (Auto) 9.6, Eosinophils (%) (Auto) 0.1, Basophils (%) (Auto ) 0.3, Sodium Level 151H, Potassium Level 3.5, Chloride Level 112H, Carbon Dioxide Level 26, Anion Gap 13, Blood Urea Nitrogen 32H, Creatinine 1.1, Estimat Glomerular Filtration Rate 50.2, Glucose Level 134H, Calcium Level 9.5 Height (Feet): 5 Height (Inches): 3.00 Weight (Pounds): 145 General Appearance: lethargic EENT: normal ENT inspection Neck: normal inspection Cardiovascular: normal rate, regular rhythm Respiratory/Chest: no respiratory distress, no accessory muscle use Extremities: normal inspection Skin: normal pigmentation Trevor Cabrera DO Nov 10, 2019 08:38
[2019-11-10 12:20] VITALS: BP 146/86
--- NOTE | 2019-11-10 12:28 | Pulmonology Progress Note ---
Assessment/Plan Assessment/Plan IMPRESSION: 1. UTI. 2. Hypoxemia. 3. Hypertension. 4. Diabetes mellitus. 5. Previous CVA. 6. Cognitive impairment. 7. assisted resident. 8. Bactrim allergy. 9. COVID 19 positive DISCUSSION: Agree with admission and care. Continue broad-spectrum antibiotics. Ordered oxygen and pulmonary hygiene. 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 Will review CXR PaO2 64 is actually on room air as she had taken her NRBM off Woody Bradley M.D. Subjective Interval Events: On 15L/min O2; none new Constitutional: Reports: no symptoms HEENT: Repors: no symptoms Respiratory: Reports: no symptoms Cardiovascular: Reports: no symptoms Gastrointestinal/Abdominal: Reports: no symptoms Allergies: Coded Allergies: SULFAMETHOXAZOLE (Verified Allergy, Unknown, 11/03/19) TRIMETHOPRIM (Verified Allergy, Unknown, 11/03/19) All Systems: reviewed and negative except above Objective Last 24 Hour Vital Signs Date Time Temp Pulse Resp B/P (MAP) Pulse Ox O2 Delivery O2 Flow Rate FiO2 11/10/19 12:20 98.1 98 20 146/86 (106) 94 11/10/19 12:00 Non-Rebreather 13.0 11/10/19 08:18 99.9 97 20 132/95 (107) 94 11/10/19 08:00 Non-Rebreather 13.0 11/10/19 07:59 94 11/10/19 04:00 Non-Rebreather 13.0 11/10/19 04:00 83 11/10/19 04:00 98.2 80 20 132/84 (100) 94 11/10/19 00:00 98.1 72 21 127/74 (91) 97 11/10/19 00:00 Non-Rebreather 13.0 11/09/19 23:49 91 11/09/19 20:00 Non-Rebreather 13.0 11/09/19 20:00 98.0 94 20 124/76 (92) 95 11/09/19 19:20 91 11/09/19 16:00 Non-Rebreather 13.0 11/09/19 16:00 Non-Rebreather 13.0 11/09/19 16:00 98.4 102 25 132/82 (99) 92 11/09/19 15:13 110 11/09/19 12:53 88 Intake and Output 11/09/19 11/10/19 19:00 07:00 Intake Total 250 ml 260 ml Output Total 400 ml 500 ml Balance -150 ml -240 ml Intake Oral 250 ml 150 ml IV Total 110 ml Output Urine Total 400 ml 500 ml # Voids 3 # Bowel Movements 1 General Appearance: no acute distress HEENT: mucous membranes moist Respiratory/Chest: chest wall non-tender, decreased breath sounds Cardiovascular: normal peripheral pulses Abdomen: normal bowel sounds Extremities: no cyanosis Neurologic/Psychiatric: alert, responsive Laboratory Tests 11/10/19 05:00: White Blood Count 7.3, Red Blood Count 5.00, Hemoglobin 14.9, Hematocrit 44.2, Mean Corpuscular Volume 88, Mean Corpuscular Hemoglobin 29.9, Mean Corpuscular Hemoglobin Concent 33.8, Red Cell Distribution Width 12.9, Platelet Count 356, Mean Platelet Volume 4.9L, Neutrophils (%) (Auto) 68.7, Lymphocytes (%) (Auto) 21.3, Monocytes (%) (Auto) 9.6, Eosinophils (%) (Auto) 0.1, Basophils (%) (Auto ) 0.3, Sodium Level 151H, Potassium Level 3.5, Chloride Level 112H, Carbon Dioxide Level 26, Anion Gap 13, Blood Urea Nitrogen 32H, Creatinine 1.1, Estimat Glomerular Filtration Rate 50.2, Glucose Level 134H, Calcium Level 9.5 Current Medications Medications (Trade) Dose Ordered Sig/Maryam Route PRN Reason Start Time Stop Time Status Last Admin Dose Admin Acetaminophen (Tylenol) 650 mg Q6H PRN ORAL MILD PAIN/TEMP >100.5 11/04/19 20:30 12/04/19 20:29 11/06/19 21:34 Ascorbic Acid (Vitamin C) 500 mg DAILY ORAL 11/08/19 09:00 12/08/19 08:59 11/10/19 08:21 Aspirin (Ecotrin) 81 mg DAILY ORAL 11/05/19 09:00 12/20/19 08:59 11/10/19 08:21 Cefepime HCl 1 gm/ Dextrose 55 ml @ 110 mls/hr Q24H IVPB 11/05/19 02:00 11/12/19 01:59 11/10/19 02:27 Dextrose (Dextrose 50%) 25 ml Q30M PRN IV Hypoglycemia 11/04/19 10:45 02/02/20 10:44 Dextrose (Dextrose 50%) 50 ml Q30M PRN IV Hypoglycemia 11/04/19 10:45 02/02/20 10:44 Multivitamins (Multivitamins) 1 tab DAILY ORAL 11/08/19 09:00 12/08/19 08:59 11/10/19 08:21 Woody Bradley MD Nov 10, 2019 12:28
[2019-11-10 16:00] VITALS: BP 128/48
[2019-11-10 20:00] VITALS: BP 124/54
--- NOTE | 2019-11-10 21:51 | Surgery Progress Note ---
Surgery Progress Note Subjective Additional Comments labs stable exam stable no acute events Objective Last 24 Hour Vital Signs Date Time Temp Pulse Resp B/P (MAP) Pulse Ox O2 Delivery O2 Flow Rate FiO2 11/10/19 20:00 97.8 105 20 124/54 (77) 94 11/10/19 20:00 Non-Rebreather 13.0 11/10/19 20:00 101 11/10/19 16:00 98.2 111 20 128/48 (74) 94 11/10/19 16:00 Non-Rebreather 13.0 11/10/19 15:33 85 11/10/19 12:20 98.1 98 20 146/86 (106) 94 11/10/19 12:00 Non-Rebreather 13.0 11/10/19 11:40 88 11/10/19 08:18 99.9 97 20 132/95 (107) 94 11/10/19 08:00 Non-Rebreather 13.0 11/10/19 07:59 94 11/10/19 04:00 Non-Rebreather 13.0 11/10/19 04:00 83 11/10/19 04:00 98.2 80 20 132/84 (100) 94 11/10/19 00:00 98.1 72 21 127/74 (91) 97 11/10/19 00:00 Non-Rebreather 13.0 11/09/19 23:49 91 I&O Intake and Output 11/09/19 11/10/19 19:00 07:00 Intake Total 250 ml 260 ml Output Total 400 ml 500 ml Balance -150 ml -240 ml Intake Oral 250 ml 150 ml IV Total 110 ml Output Urine Total 400 ml 500 ml # Voids 3 # Bowel Movements 1 Dressing: other Wound: other Drains: other Cardiovascular: RSR Respiratory: decreased breath sounds Abdomen: soft, non-tender, present bowel sounds Extremities: no tenderness, no cyanosis Laboratory Tests Test 11/10/19 05:00 White Blood Count 7.3 K/UL (4.8-10.8) Red Blood Count 5.00 M/UL (4.20-5.40) Hemoglobin 14.9 G/DL (12.0-16.0) Hematocrit 44.2 % (37.0-47.0) Mean Corpuscular Volume 88 FL (80-99) Mean Corpuscular Hemoglobin 29.9 PG (27.0-31.0) Mean Corpuscular Hemoglobin Concent 33.8 G/DL (32.0-36.0) Red Cell Distribution Width 12.9 % (11.6-14.8) Platelet Count 356 K/UL (150-450) Mean Platelet Volume 4.9 FL (6.5-10.1) L Neutrophils (%) (Auto) 68.7 % (45.0-75.0) Lymphocytes (%) (Auto) 21.3 % (20.0-45.0) Monocytes (%) (Auto) 9.6 % (1.0-10.0) Eosinophils (%) (Auto) 0.1 % (0.0-3.0) Basophils (%) (Auto) 0.3 % (0.0-2.0) Sodium Level 151 MMOL/L (136-145) H Potassium Level 3.5 MMOL/L (3.5-5.1) Chloride Level 112 MMOL/L (98-107) H Carbon Dioxide Level 26 MMOL/L (21-32) Anion Gap 13 mmol/L (5-15) Blood Urea Nitrogen 32 mg/dL (7-18) H Creatinine 1.1 MG/DL (0.55-1.30) Estimat Glomerular Filtration Rate 50.2 mL/min (>60) Glucose Level 134 MG/DL (74-106) H Calcium Level 9.5 MG/DL (8.5-10.1) Plan Problems: (1) Hypoxia Assessment & Plan: supplemental O2 monitor closely (2) UTI (urinary tract infection) (3) Suspected 2019 novel coronavirus infection (4) Pneumonia due to COVID-19 virus Assessment & Plan: The heart is borderline enlarged. There are bilateral interstitial opacities diffusely. No definite focal airspace consolidation. The pleural spaces are clear. Impression: Borderline cardiomegaly. Bilateral interstitial disease. This is nonspecific, could indicate infiltrates, edema, among other possibilities (5) Fever (6) Anemia (7) Confusion (8) Diabetes (9) Renal failure (10) Malnutrition (11) HTN (hypertension) (12) CVA (cerebral vascular accident) (13) Decubitus skin ulcer Assessment & Plan: Pt presented on admission with DTPI L ischium. Base of wound is purple, indurated. An area of hyperpigmentation noted distally but in close to wound bed. Non-blanching erythema cleft of buttocks. Hyperpigmentation from previous wound noted to R ischium. Within area of hyperpigmentation an area of non-blanchable erythema noted. No other skin concerns noted. Tx.Plan: Apply Moisture Barrier Paste to Sacrum. Cover with Optifoam drsg. Change every 3 days and prn. Apply Moisture Barrier Paste to R and L Ischium. Cover each area with Optifoam drsg. Change every 3 days and prn. Apply Cavilon Skin Barrier to both heels. Cover each heel with Optifoam drsg. Change every 7 days and prn. Reposition at least every 2hours or as tolerated. Off-load heels with Pillow. DAILY ESTIMATED NEEDS: Needs based on Wound, DM/ 53kg abw 25-30 kcals/kg 3460-1619 total kcals 1.25-1.5 g protein/kg 66-79 g total protein 25-30 mL/kg 0795-5114 total fluid mLs NUTRITION DIAGNOSIS: * Increased kcal/prot intake needs R/T wound healing as evidenced by admitted w/ DTPI wound @ L ischium, non-blanching erythema at cleft of buttocks. * Altered nutrition related lab values R/T diabetes as evidenced by elev POC glu (174, 102, 151, 123), on NISS. CURRENT DIET:REGULAR PO DIET RECOMMENDATIONS: CCHO med/ texture as tolerated or per [employer] ADDITIONAL RECOMMENDATIONS: * Per SNF: HT=61" [id number] * Wound healing: add MVI x 1, Vit C 500mg QD add Syed BID * Texture downgrade for chewing deficit as per RN -> consider pureed * Glucerna x 1 with variable intake (220kcal/10g prot each) Humble Sewell Nov 10, 2019 21:51
[2019-11-11] VITALS: BP 138/64
[2019-11-11] MEDS: Cefepime HCl 1 GM in D5W 55 ML IVPB SCH (01:17)
[2019-11-11 04:00] VITALS: BP 128/62
[2019-11-11 06:03] LABS: BASOPHILS % (AUTO) 0.3 % (0.0-2.0); EOSINOPHILS % (AUTO) 0.6 % (0.0-3.0); HEMATOCRIT 48.4 % (37.0-47.0); HEMOGLOBIN 15.7 G/DL (12.0-16.0); MEAN CORPUSCULAR VOLUME 89 FL (80-99); MONOCYTES % (AUTO) 8.6 % (1.0-10.0); NEUTROPHILS % (AUTO) 71.5 % (45.0-75.0); PLATELET COUNT 427 K/UL (150-450); RED BLOOD COUNT 5.42 M/UL (4.20-5.40); RED CELL DISTRIBUTION WIDTH 12.8 % (11.6-14.8); WHITE BLOOD COUNT 10.3 K/UL (4.8-10.8)
[2019-11-11 06:31] LABS: ANION GAP 10 mmol/L (5-15); BLOOD UREA NITROGEN 33 mg/dL (7-18); CALCIUM 9.8 MG/DL (8.5-10.1); CARBON DIOXIDE 30 MMOL/L (21-32); CHLORIDE 111 MMOL/L (98-107); CREATININE 1.1 MG/DL (0.55-1.30); POTASSIUM 3.7 MMOL/L (3.5-5.1); SODIUM 151 MMOL/L (136-145)
[2019-11-11 08:00] VITALS: BP 145/81
--- NOTE | 2019-11-11 08:58 | General Progress Note ---
Assessment/Plan Problem List: (1) Malnutrition ICD Codes: E46 - Unspecified protein-calorie malnutrition SNOMED: 79606915 (2) Anemia ICD Codes: D64.9 - Anemia, unspecified SNOMED: 869008292 (3) Fever ICD Codes: R50.9 - Fever, unspecified SNOMED: 877594708 (4) CVA (cerebral vascular accident) ICD Codes: I63.9 - Cerebral infarction, unspecified SNOMED: 154824544 (5) HTN (hypertension) ICD Codes: I10 - Essential (primary) hypertension SNOMED: 43225258 (6) Diabetes ICD Codes: E11.9 - Type 2 diabetes mellitus without complications SNOMED: 85062464 (7) Renal failure ICD Codes: N19 - Unspecified kidney failure SNOMED: 34607888 (8) Confusion ICD Codes: R41.0 - Disorientation, unspecified SNOMED: 253806601 (9) Hypoxia ICD Codes: R09.02 - Hypoxemia SNOMED: 952567362 (10) Suspected 2019 novel coronavirus infection ICD Codes: R68.89 - Other general symptoms and signs SNOMED: 725476880 Status: unchanged Assessment/Plan: o2 pulm tx abx bp bs control cbc bmp am Subjective Constitutional: Reports: weakness Allergies: Coded Allergies: SULFAMETHOXAZOLE (Verified Allergy, Unknown, 11/03/19) TRIMETHOPRIM (Verified Allergy, Unknown, 11/03/19) All Systems: reviewed and negative except above Subjective o2 mask calm in bed Objective Last 24 Hour Vital Signs Date Time Temp Pulse Resp B/P (MAP) Pulse Ox O2 Delivery O2 Flow Rate FiO2 11/11/19 04:00 Non-Rebreather 13.0 11/11/19 04:00 97.9 90 20 128/62 (84) 96 11/11/19 03:34 90 11/11/19 00:00 Non-Rebreather 13.0 11/11/19 00:00 98.2 101 22 138/64 (88) 94 11/10/19 23:31 88 11/10/19 20:00 97.8 105 20 124/54 (77) 94 11/10/19 20:00 Non-Rebreather 13.0 11/10/19 20:00 101 11/10/19 16:00 98.2 111 20 128/48 (74) 94 11/10/19 16:00 Non-Rebreather 13.0 11/10/19 15:33 85 11/10/19 12:20 98.1 98 20 146/86 (106) 94 11/10/19 12:00 Non-Rebreather 13.0 11/10/19 11:40 88 Intake and Output 11/10/19 11/11/19 19:00 07:00 Intake Total 300 ml 175 ml Output Total 550 ml 100 ml Balance -250 ml 75 ml Intake Oral 300 ml 120 ml IV Total 55 ml Output Urine Total 550 ml 100 ml # Voids 2 Laboratory Tests 11/11/19 03:40: White Blood Count 10.3, Red Blood Count 5.42H, Hemoglobin 15.7, Hematocrit 48.4H , Mean Corpuscular Volume 89, Mean Corpuscular Hemoglobin 29.0, Mean Corpuscular Hemoglobin Concent 32.4, Red Cell Distribution Width 12.8, Platelet Count 427, Mean Platelet Volume 5.3L, Neutrophils (%) (Auto) 71.5, Lymphocytes ( %) (Auto) 19.0L, Monocytes (%) (Auto) 8.6, Eosinophils (%) (Auto) 0.6, Basophils (%) (Auto) 0.3, Fibrinogen 582H, D-Dimer 1.09H, Sodium Level 151H, Potassium Level 3.7, Chloride Level 111H, Carbon Dioxide Level 30, Anion Gap 10 , Blood Urea Nitrogen 33H, Creatinine 1.1, Estimat Glomerular Filtration Rate 50.2, Glucose Level 129H, Calcium Level 9.8, Ferritin 405H, Lactate Dehydrogenase 439H, C-Reactive Protein, Quantitative 7.9H, TB Test (T-Spot) [ Pending], TB Test Nil Control (T-Spot) [Pending], TB Test Panel A (T-Spot) [ Pending], TB Test Panel B (T-Spot) [Pending], TB Test Positive Control (T-Spot) [Pending] Height (Feet): 5 Height (Inches): 3.00 Weight (Pounds): 145 General Appearance: lethargic EENT: normal ENT inspection Neck: normal inspection Cardiovascular: normal rate, regular rhythm Respiratory/Chest: no respiratory distress, no accessory muscle use Skin: normal pigmentation Trevor Cabrera DO Nov 11, 2019 08:58
[2019-11-11] MEDS: Aspirin EC 81mg tab ORAL SCH (09:18)
[2019-11-11] MEDS: Ascorbic Acid 500mg tab ORAL SCH (09:18)
[2019-11-11 09:57] LABS: ALANINE AMINOTRANSFERASE 57 U/L (12-78); ALKALINE PHOSPHATASE 80 U/L (46-116); ASPARTATE AMINO TRANSFERASE 90 U/L (15-37); BILIRUBIN,DIRECT 0.3 MG/DL (0.0-0.3); PHOSPHORUS 3.5 MG/DL (2.5-4.9)
--- NOTE | 2019-11-11 10:57 | Diagnostic Imaging Report ---
Indication: Cough Technique: One view of the chest Comparison: November 09, 2019 Findings: Bilateral right greater than left diffuse infiltrates are again demonstrated, unchanged. Heart size is borderline enlarged. Impression: Unchanged, over 2 days, findings as above.
--- NOTE | 2019-11-11 11:43 | Pulmonology Progress Note ---
Assessment/Plan Assessment/Plan IMPRESSION: 1. UTI. 2. Hypoxemia. 3. Hypertension. 4. Diabetes mellitus. 5. Previous CVA. 6. Cognitive impairment. 7. half-way resident. 8. Bactrim allergy. 9. COVID 19 positive DISCUSSION: Agree with admission and care. Continue broad-spectrum antibiotics. Ordered oxygen and pulmonary hygiene. I will follow as way inspector. CXR improved SaO2 90% on 6L/min Woody Bradley M.D. Subjective Interval Events: On 15L/min O2; none new Constitutional: Reports: no symptoms HEENT: Repors: no symptoms Respiratory: Reports: no symptoms Cardiovascular: Reports: no symptoms Gastrointestinal/Abdominal: Reports: no symptoms Allergies: Coded Allergies: SULFAMETHOXAZOLE (Verified Allergy, Unknown, 11/03/19) TRIMETHOPRIM (Verified Allergy, Unknown, 11/03/19) All Systems: reviewed and negative except above Objective Last 24 Hour Vital Signs Date Time Temp Pulse Resp B/P (MAP) Pulse Ox O2 Delivery O2 Flow Rate FiO2 11/11/19 08:00 Non-Rebreather 13.0 11/11/19 08:00 98.0 101 28 145/81 (102) 95 11/11/19 08:00 93 11/11/19 04:00 Non-Rebreather 13.0 11/11/19 04:00 97.9 90 20 128/62 (84) 96 11/11/19 03:34 90 11/11/19 00:00 Non-Rebreather 13.0 11/11/19 00:00 98.2 101 22 138/64 (88) 94 11/10/19 23:31 88 11/10/19 20:00 97.8 105 20 124/54 (77) 94 11/10/19 20:00 Non-Rebreather 13.0 11/10/19 20:00 101 11/10/19 16:00 98.2 111 20 128/48 (74) 94 11/10/19 16:00 Non-Rebreather 13.0 11/10/19 15:33 85 11/10/19 12:20 98.1 98 20 146/86 (106) 94 11/10/19 12:00 Non-Rebreather 13.0 Intake and Output 11/10/19 11/11/19 19:00 07:00 Intake Total 300 ml 175 ml Output Total 550 ml 100 ml Balance -250 ml 75 ml Intake Oral 300 ml 120 ml IV Total 55 ml Output Urine Total 550 ml 100 ml # Voids 2 General Appearance: no acute distress HEENT: mucous membranes moist Respiratory/Chest: chest wall non-tender, decreased breath sounds Cardiovascular: normal peripheral pulses Abdomen: normal bowel sounds Extremities: no cyanosis Neurologic/Psychiatric: alert, responsive Laboratory Tests 11/11/19 03:40: White Blood Count 10.3, Red Blood Count 5.42H, Hemoglobin 15.7, Hematocrit 48.4H , Mean Corpuscular Volume 89, Mean Corpuscular Hemoglobin 29.0, Mean Corpuscular Hemoglobin Concent 32.4, Red Cell Distribution Width 12.8, Platelet Count 427, Mean Platelet Volume 5.3L, Neutrophils (%) (Auto) 71.5, Lymphocytes ( %) (Auto) 19.0L, Monocytes (%) (Auto) 8.6, Eosinophils (%) (Auto) 0.6, Basophils (%) (Auto) 0.3, Fibrinogen 582H, D-Dimer 1.09H, Sodium Level 151H, Potassium Level 3.7, Chloride Level 111H, Carbon Dioxide Level 30, Anion Gap 10 , Blood Urea Nitrogen 33H, Creatinine 1.1, Estimat Glomerular Filtration Rate 50.2, Glucose Level 129H, Uric Acid 8.7H, Calcium Level 9.8, Phosphorus Level 3.5, Magnesium Level 2.7H, Ferritin 405H, Total Bilirubin 1.0, Direct Bilirubin 0.3, Aspartate Amino Transf (AST/SGOT) 90H, Alanine Aminotransferase (ALT/SGPT) 57, Alkaline Phosphatase 80, Lactate Dehydrogenase 439H, C-Reactive Protein, Quantitative 7.9H, Total Protein 10.3H, Albumin 3.0L, TB Test (T-Spot) [Pending] , TB Test Nil Control (T-Spot) [Pending], TB Test Panel A (T-Spot) [Pending], TB Test Panel B (T-Spot) [Pending], TB Test Positive Control (T-Spot) [Pending] Current Medications Medications (Trade) Dose Ordered Sig/Maryam Route PRN Reason Start Time Stop Time Status Last Admin Dose Admin Acetaminophen (Tylenol) 650 mg Q6H PRN ORAL MILD PAIN/TEMP >100.5 11/04/19 20:30 12/04/19 20:29 11/06/19 21:34 Ascorbic Acid (Vitamin C) 500 mg DAILY ORAL 11/08/19 09:00 12/08/19 08:59 11/11/19 09:18 Aspirin (Ecotrin) 81 mg DAILY ORAL 11/05/19 09:00 12/20/19 08:59 11/11/19 09:18 Cefepime HCl 1 gm/ Dextrose 55 ml @ 110 mls/hr Q24H IVPB 11/05/19 02:00 11/12/19 01:59 11/11/19 01:17 Dextrose (Dextrose 50%) 25 ml Q30M PRN IV Hypoglycemia 11/04/19 10:45 02/02/20 10:44 Dextrose (Dextrose 50%) 50 ml Q30M PRN IV Hypoglycemia 11/04/19 10:45 02/02/20 10:44 Multivitamins (Multivitamins) 1 tab DAILY ORAL 11/08/19 09:00 12/08/19 08:59 11/11/19 09:18 Woody Bradley MD Nov 11, 2019 11:43
[2019-11-11 12:00] VITALS: BP 141/70
--- NOTE | 2019-11-11 13:06 | Infectious Diseases Prog Note ---
Assessment/Plan Assessment/Plan Assessment: Sepsis Fever Acute hypoxic respiratory failure- s/p simple mask, now on NRB Pnuemonia- 2ry to COVID19 -11/08 CXR: Interval worsening bilateral airspace opacities, worse in the right lung. -11/05 CXR: Slight worsening of bilateral right greater than left interstitial and airspace opacities, over 3 days. Most likely pneumonia but pulmonary edema also a possibility -11/02 CXR: Borderline cardiomegaly. Bilateral interstitial disease. This is nonspecific, could indicate infiltrates, edema, among other possibilities SARS-COV2 PCR + -Influenza sc neg -Bcx NTD -Ferritin 568 (11/08)<- 841 (11/06) -CRP 7.9(11/10)<-11.2 (11/08) <- 7.1 (11/06) No leukocytosis UTI -u/a wbc tnct, nit neg, leuk +3; ucx >100k E.coli (hernandes S), >100k P.mirabilis ( R. Ceftriaxone, bactrim) Elevated LFTs, improving Dm2 HTN CVA SNF resident ([facility]) Plan: - Cefepime#7/ for UTI -Will not start Plaquenil as not recommended by IDSA and NIH guidelines -Will consider steroids if worsening -11/07 SP Azithromycin #5 -11/03 SP Ceftriaxone #2 -f/u cx -Monitor CBC/CMP, temperaturse -Monitor inflammatory markers, CXR -T spot -ABG Thank you for consulting [facility]. Will continue to follow along wiht you. Subjective Allergies: Coded Allergies: SULFAMETHOXAZOLE (Verified Allergy, Unknown, 11/03/19) TRIMETHOPRIM (Verified Allergy, Unknown, 11/03/19) Subjective afebrile >48hrs on NRB CRP and ferriting improving Objective Vital Signs Last 24 Hour Vital Signs Date Time Temp Pulse Resp B/P (MAP) Pulse Ox O2 Delivery O2 Flow Rate FiO2 11/11/19 12:00 97.7 108 28 141/70 (93) 93 11/11/19 12:00 Non-Rebreather 13.0 11/11/19 08:00 Non-Rebreather 13.0 11/11/19 08:00 98.0 101 28 145/81 (102) 95 11/11/19 08:00 93 4/27/20 04:00 Non-Rebreather 13.0 11/11/19 04:00 97.9 90 20 128/62 (84) 96 11/11/19 03:34 90 11/11/19 00:00 Non-Rebreather 13.0 11/11/19 00:00 98.2 101 22 138/64 (88) 94 11/10/19 23:31 88 11/10/19 20:00 97.8 105 20 124/54 (77) 94 11/10/19 20:00 Non-Rebreather 13.0 11/10/19 20:00 101 11/10/19 16:00 98.2 111 20 128/48 (74) 94 11/10/19 16:00 Non-Rebreather 13.0 11/10/19 15:33 85 Height (Feet): 5 Height (Inches): 3.00 Weight (Pounds): 145 Objective not examined to limit covid exposure Laboratory Tests Test 11/11/19 03:40 White Blood Count 10.3 K/UL (4.8-10.8) Red Blood Count 5.42 M/UL (4.20-5.40) H Hemoglobin 15.7 G/DL (12.0-16.0) Hematocrit 48.4 % (37.0-47.0) H Mean Corpuscular Volume 89 FL (80-99) Mean Corpuscular Hemoglobin 29.0 PG (27.0-31.0) Mean Corpuscular Hemoglobin Concent 32.4 G/DL (32.0-36.0) Red Cell Distribution Width 12.8 % (11.6-14.8) Platelet Count 427 K/UL (150-450) Mean Platelet Volume 5.3 FL (6.5-10.1) L Neutrophils (%) (Auto) 71.5 % (45.0-75.0) Lymphocytes (%) (Auto) 19.0 % (20.0-45.0) L Monocytes (%) (Auto) 8.6 % (1.0-10.0) Eosinophils (%) (Auto) 0.6 % (0.0-3.0) Basophils (%) (Auto) 0.3 % (0.0-2.0) Fibrinogen 582 mg/dL (200-400) H D-Dimer 1.09 mg/L FEU (0.00-0.49) H Sodium Level 151 MMOL/L (136-145) H Potassium Level 3.7 MMOL/L (3.5-5.1) Chloride Level 111 MMOL/L (98-107) H Carbon Dioxide Level 30 MMOL/L (21-32) Anion Gap 10 mmol/L (5-15) Blood Urea Nitrogen 33 mg/dL (7-18) H Creatinine 1.1 MG/DL (0.55-1.30) Estimat Glomerular Filtration Rate 50.2 mL/min (>60) Glucose Level 129 MG/DL (74-106) H Uric Acid 8.7 MG/DL (2.6-7.2) H Calcium Level 9.8 MG/DL (8.5-10.1) Phosphorus Level 3.5 MG/DL (2.5-4.9) Magnesium Level 2.7 MG/DL (1.8-2.4) H Ferritin 405 NG/ML (8-388) H Total Bilirubin 1.0 MG/DL (0.2-1.0) Direct Bilirubin 0.3 MG/DL (0.0-0.3) Aspartate Amino Transf (AST/SGOT) 90 U/L (15-37) H Alanine Aminotransferase (ALT/SGPT) 57 U/L (12-78) Alkaline Phosphatase 80 U/L (46-116) Lactate Dehydrogenase 439 U/L (81-234) H C-Reactive Protein, Quantitative 7.9 mg/dL (0.00-0.90) H Total Protein 10.3 G/DL (6.4-8.2) H Albumin 3.0 G/DL (3.4-5.0) L TB Test (T-Spot) Pending TB Test Nil Control (T-Spot) Pending TB Test Panel A (T-Spot) Pending TB Test Panel B (T-Spot) Pending TB Test Positive Control (T-Spot) Pending Current Medications Medications (Trade) Dose Ordered Sig/Maryam Route PRN Reason Start Time Stop Time Status Last Admin Dose Admin Acetaminophen (Tylenol) 650 mg Q6H PRN ORAL MILD PAIN/TEMP >100.5 11/04/19 20:30 12/04/19 20:29 11/06/19 21:34 Ascorbic Acid (Vitamin C) 500 mg DAILY ORAL 11/08/19 09:00 12/08/19 08:59 11/11/19 09:18 Aspirin (Ecotrin) 81 mg DAILY ORAL 11/05/19 09:00 12/20/19 08:59 11/11/19 09:18 Cefepime HCl 1 gm/ Dextrose 55 ml @ 110 mls/hr Q24H IVPB 11/05/19 02:00 11/12/19 01:59 11/11/19 01:17 Dextrose (Dextrose 50%) 25 ml Q30M PRN IV Hypoglycemia 11/04/19 10:45 02/02/20 10:44 Dextrose (Dextrose 50%) 50 ml Q30M PRN IV Hypoglycemia 11/04/19 10:45 02/02/20 10:44 Multivitamins (Multivitamins) 1 tab DAILY ORAL 11/08/19 09:00 12/08/19 08:59 11/11/19 09:18 Jenna Briseno M.D. Nov 11, 2019 13:06
--- NOTE | 2019-11-11 13:11 | Surgery Progress Note ---
Surgery Progress Note Subjective Additional Comments afebrile HD stable on non rebreather near max and desat at times Objective Last 24 Hour Vital Signs Date Time Temp Pulse Resp B/P (MAP) Pulse Ox O2 Delivery O2 Flow Rate FiO2 11/11/19 12:00 97.7 108 28 141/70 (93) 93 11/11/19 12:00 Non-Rebreather 13.0 11/11/19 08:00 Non-Rebreather 13.0 11/11/19 08:00 98.0 101 28 145/81 (102) 95 11/11/19 08:00 93 11/11/19 04:00 Non-Rebreather 13.0 11/11/19 04:00 97.9 90 20 128/62 (84) 96 11/11/19 03:34 90 11/11/19 00:00 Non-Rebreather 13.0 11/11/19 00:00 98.2 101 22 138/64 (88) 94 11/10/19 23:31 88 11/10/19 20:00 97.8 105 20 124/54 (77) 94 11/10/19 20:00 Non-Rebreather 13.0 11/10/19 20:00 101 11/10/19 16:00 98.2 111 20 128/48 (74) 94 11/10/19 16:00 Non-Rebreather 13.0 11/10/19 15:33 85 I&O Intake and Output 11/10/19 11/11/19 19:00 07:00 Intake Total 300 ml 175 ml Output Total 550 ml 100 ml Balance -250 ml 75 ml Intake Oral 300 ml 120 ml IV Total 55 ml Output Urine Total 550 ml 100 ml # Voids 2 Dressing: other Wound: other Drains: other Cardiovascular: RSR Respiratory: decreased breath sounds Abdomen: soft, non-tender, present bowel sounds Extremities: no cyanosis, other Laboratory Tests Test 11/11/19 03:40 White Blood Count 10.3 K/UL (4.8-10.8) Red Blood Count 5.42 M/UL (4.20-5.40) H Hemoglobin 15.7 G/DL (12.0-16.0) Hematocrit 48.4 % (37.0-47.0) H Mean Corpuscular Volume 89 FL (80-99) Mean Corpuscular Hemoglobin 29.0 PG (27.0-31.0) Mean Corpuscular Hemoglobin Concent 32.4 G/DL (32.0-36.0) Red Cell Distribution Width 12.8 % (11.6-14.8) Platelet Count 427 K/UL (150-450) Mean Platelet Volume 5.3 FL (6.5-10.1) L Neutrophils (%) (Auto) 71.5 % (45.0-75.0) Lymphocytes (%) (Auto) 19.0 % (20.0-45.0) L Monocytes (%) (Auto) 8.6 % (1.0-10.0) Eosinophils (%) (Auto) 0.6 % (0.0-3.0) Basophils (%) (Auto) 0.3 % (0.0-2.0) Fibrinogen 582 mg/dL (200-400) H D-Dimer 1.09 mg/L FEU (0.00-0.49) H Sodium Level 151 MMOL/L (136-145) H Potassium Level 3.7 MMOL/L (3.5-5.1) Chloride Level 111 MMOL/L (98-107) H Carbon Dioxide Level 30 MMOL/L (21-32) Anion Gap 10 mmol/L (5-15) Blood Urea Nitrogen 33 mg/dL (7-18) H Creatinine 1.1 MG/DL (0.55-1.30) Estimat Glomerular Filtration Rate 50.2 mL/min (>60) Glucose Level 129 MG/DL (74-106) H Uric Acid 8.7 MG/DL (2.6-7.2) H Calcium Level 9.8 MG/DL (8.5-10.1) Phosphorus Level 3.5 MG/DL (2.5-4.9) Magnesium Level 2.7 MG/DL (1.8-2.4) H Ferritin 405 NG/ML (8-388) H Total Bilirubin 1.0 MG/DL (0.2-1.0) Direct Bilirubin 0.3 MG/DL (0.0-0.3) Aspartate Amino Transf (AST/SGOT) 90 U/L (15-37) H Alanine Aminotransferase (ALT/SGPT) 57 U/L (12-78) Alkaline Phosphatase 80 U/L (46-116) Lactate Dehydrogenase 439 U/L (81-234) H C-Reactive Protein, Quantitative 7.9 mg/dL (0.00-0.90) H Total Protein 10.3 G/DL (6.4-8.2) H Albumin 3.0 G/DL (3.4-5.0) L TB Test (T-Spot) Pending TB Test Nil Control (T-Spot) Pending TB Test Panel A (T-Spot) Pending TB Test Panel B (T-Spot) Pending TB Test Positive Control (T-Spot) Pending Plan Problems: (1) Hypoxia Assessment & Plan: supplemental O2 monitor closely (2) UTI (urinary tract infection) (3) Suspected 2019 novel coronavirus infection (4) Pneumonia due to COVID-19 virus Assessment & Plan: The heart is borderline enlarged. There are bilateral interstitial opacities diffusely. No definite focal airspace consolidation. The pleural spaces are clear. Impression: Borderline cardiomegaly. Bilateral interstitial disease. This is nonspecific, could indicate infiltrates, edema, among other possibilities on Non rebreather can desaturate may consider steroids (5) Fever (6) Anemia (7) Confusion (8) Diabetes (9) Renal failure (10) Malnutrition Assessment & Plan: DAILY ESTIMATED NEEDS: Needs based on Wound, DM/ 53kg abw 25-30 kcals/kg 2931-1042 total kcals 1.25-1.5 g protein/kg 66-79 g total protein 25-30 mL/kg 5120-6344 total fluid mLs NUTRITION DIAGNOSIS: * Increased kcal/prot intake needs R/T wound healing as evidenced by admitted w/ DTPI wound @ L ischium, non-blanching erythema at cleft of buttocks. * Altered nutrition related lab values R/T diabetes as evidenced by elev POC glu (174, 102, 151, 123, now improved), on NISS. CURRENT DIET:REGULAR PO DIET RECOMMENDATIONS: CCHO med/ texture as tolerated or per COMMUNITY ENGAGEMENT COORDINATOR ADDITIONAL RECOMMENDATIONS: * Per SNF: HT=61" NA=650guw * Wound healing: add MVI x 1, Vit C 500mg QD, SYED BID * sliding scale insulin prn * Texture downgrade for chewing deficit as per RN -> consider pureed, rec COMMUNITY ENGAGEMENT COORDINATOR eval * High kcal supplement w/ meals, will start w/ Ensure Clear and monitor acceptance (250 kcal/ 8g pro each) (11) HTN (hypertension) (12) CVA (cerebral vascular accident) (13) Decubitus skin ulcer Assessment & Plan: Pt presented on admission with DTPI L ischium. Base of wound is purple, indurated. An area of hyperpigmentation noted distally but in close to wound bed. Non-blanching erythema cleft of buttocks. Hyperpigmentation from previous wound noted to R ischium. Within area of hyperpigmentation an area of non-blanchable erythema noted. No other skin concerns noted. Tx.Plan: Apply Moisture Barrier Paste to Sacrum. Cover with Optifoam drsg. Change every 3 days and prn. Apply Moisture Barrier Paste to R and L Ischium. Cover each area with Optifoam drsg. Change every 3 days and prn. Apply Cavilon Skin Barrier to both heels. Cover each heel with Optifoam drsg. Change every 7 days and prn. Reposition at least every 2hours or as tolerated. Off-load heels with Pillow. DAILY ESTIMATED NEEDS: Needs based on Wound, DM/ 53kg abw 25-30 kcals/kg 9337-8904 total kcals 1.25-1.5 g protein/kg 66-79 g total protein 25-30 mL/kg 3225-8956 total fluid mLs NUTRITION DIAGNOSIS: * Increased kcal/prot intake needs R/T wound healing as evidenced by admitted w/ DTPI wound @ L ischium, non-blanching erythema at cleft of buttocks. * Altered nutrition related lab values R/T diabetes as evidenced by elev POC glu (174, 102, 151, 123), on NISS. CURRENT DIET:REGULAR PO DIET RECOMMENDATIONS: CCHO med/ texture as tolerated or per COMMUNITY ENGAGEMENT COORDINATOR ADDITIONAL RECOMMENDATIONS: * Per SNF: HT=61" CE=191nxe * Wound healing: add MVI x 1, Vit C 500mg QD add Syed BID * Texture downgrade for chewing deficit as per RN -> consider pureed * Glucerna x 1 with variable intake (220kcal/10g prot each) Humble Sewell Nov 11, 2019 13:11
--- NOTE | 2019-11-11 13:34 | Consultation ---
Consult Note Consult Note I am asked to evaluate the patient at the request of Dr. Cabrera for fluid and electrolyte management. Day 8 of hospitalization Admitted November 02 ER: 64-year-old female presenting from SNF for evaluation of cough and fever. Symptoms began today. Paramedics reported fever greater than 101.4 degrees and a nonproductive cough beginning early this afternoon. Patient was brought in because she had no response to the Tylenol that was administered approximately 7 PM. Patient has a history of diabetes, hypertension, stroke and baseline mentation is reportedly AO x1. Patient arrives in no respiratory distress but is hypoxic at 88% on room air. Patient is primarily Japanese speaking but does appear to understand some Dutch. Does not provide any information. PMH: Diabetes, CVA, dysphasia, hypertension PSH: Reviewed Allergies: Bactrim examined data reviewed Assessment/Plan Renal parameters suggest dehydration and free water deficit Hypernatremia, Azotemia, high uric acid COVID positive pneumonia UTI Diabetes mellitus Hypertension History of CVA Allergy to Bactrim detention resident 1/2 NS IV fluids Monitor electrolytes and renal parameters Continue per consultants Per orders Wisam Love MD Nov 11, 2019 13:34
[2019-11-11 14:30] LABS: CHOLESTEROL 130 MG/DL (< 200); HDL CHOLESTEROL 22 MG/DL (40-60); TRIGLYCERIDES 122 MG/DL (30-150)
[2019-11-11 16:00] VITALS: BP 127/78
[2019-11-11 19:11] LABS: APPEARANCE,URINE CLOUDY; BILIRUBIN, URINE NEGATIVE (NEGATIVE); GLUCOSE, URINE (UA) NEGATIVE (NEGATIVE); KETONES,URINE NEGATIVE (NEGATIVE); LEUKOCYTE ESTERASE ,URINE 3+ (NEGATIVE); NITRITE,URINE NEGATIVE (NEGATIVE); PH,URINE 6.5 (4.5-8.0); PROTEIN,URINE 3+ (NEGATIVE); UROBILINOGEN,URINE 1 MG/DL (0.0-1.0)
[2019-11-11 19:13] LABS: COLOR,URINE YELLOW
[2019-11-11 20:00] VITALS: BP 135/76
[2019-11-12] VITALS: BP 130/76
[2019-11-12 04:00] VITALS: BP 140/104
[2019-11-12 06:39] LABS: BASOPHILS % (AUTO) 0.5 % (0.0-2.0); EOSINOPHILS % (AUTO) 1.3 % (0.0-3.0); HEMATOCRIT 43.2 % (37.0-47.0); HEMOGLOBIN 14.1 G/DL (12.0-16.0); LYMPHOCYTES % (AUTO) 25.1 % (20.0-45.0); MEAN CORPUSCULAR VOLUME 90 FL (80-99); MONOCYTES % (AUTO) 7.6 % (1.0-10.0); NEUTROPHILS % (AUTO) 65.5 % (45.0-75.0); PLATELET COUNT 400 K/UL (150-450); RED CELL DISTRIBUTION WIDTH 12.9 % (11.6-14.8); WHITE BLOOD COUNT 11.8 K/UL (4.8-10.8)
[2019-11-12 07:16] VITALS: BP 135/86
[2019-11-12 07:24] LABS: ALANINE AMINOTRANSFERASE 49 U/L (12-78); ALBUMIN 2.6 G/DL (3.4-5.0); ALBUMIN/GLOBULIN RATIO 0.4 (1.0-2.7); ALKALINE PHOSPHATASE 69 U/L (46-116); ANION GAP 10 mmol/L (5-15); ASPARTATE AMINO TRANSFERASE 80 U/L (15-37); BILIRUBIN,TOTAL 0.8 MG/DL (0.2-1.0); BLOOD UREA NITROGEN 32 mg/dL (7-18); CALCIUM 9.5 MG/DL (8.5-10.1); CARBON DIOXIDE 27 MMOL/L (21-32); CHLORIDE 114 MMOL/L (98-107); PHOSPHORUS 3.2 MG/DL (2.5-4.9); POTASSIUM 4.3 MMOL/L (3.5-5.1); SODIUM 151 MMOL/L (136-145)
[2019-11-12] MEDS: Ascorbic Acid 500mg tab ORAL SCH (09:02)
[2019-11-12] MEDS: Aspirin EC 81mg tab ORAL SCH (09:02)
--- NOTE | 2019-11-12 11:32 | Pulmonology Progress Note ---
Assessment/Plan Assessment/Plan IMPRESSION: 1. UTI. 2. Hypoxemia. 3. Hypertension. 4. Diabetes mellitus. 5. Previous CVA. 6. Cognitive impairment. 7. senior care resident. 8. Bactrim allergy. 9. COVID 19 positive DISCUSSION: Agree with admission and care. Continue broad-spectrum antibiotics. Ordered oxygen and pulmonary hygiene. I will follow as decatizer. CXR improved SaO2 90% on 6L/min Woody Bradley M.D. Subjective Interval Events: On 6L/min O2; none new Constitutional: Reports: no symptoms HEENT: Repors: no symptoms Respiratory: Reports: no symptoms Cardiovascular: Reports: no symptoms Gastrointestinal/Abdominal: Reports: no symptoms Allergies: Coded Allergies: SULFAMETHOXAZOLE (Verified Allergy, Unknown, 11/03/19) TRIMETHOPRIM (Verified Allergy, Unknown, 11/03/19) All Systems: reviewed and negative except above Objective Last 24 Hour Vital Signs Date Time Temp Pulse Resp B/P (MAP) Pulse Ox O2 Delivery O2 Flow Rate FiO2 11/12/19 08:00 Nasal Cannula 6.0 11/12/19 08:00 13.0 11/12/19 08:00 80 11/12/19 07:16 98.0 96 26 135/86 (102) 98 11/12/19 04:00 13.0 11/12/19 04:00 97.5 97 22 140/104 (116) 100 11/12/19 04:00 Non-Rebreather 13.0 11/12/19 03:32 93 11/12/19 00:00 Non-Rebreather 13.0 11/12/19 00:00 13.0 11/12/19 00:00 98.6 98 27 130/76 (94) 98 11/11/19 23:23 95 11/11/19 20:00 13.0 11/11/19 20:00 Non-Rebreather 13.0 11/11/19 20:00 99 11/11/19 20:00 98.6 101 27 135/76 (95) 98 11/11/19 16:59 110 11/11/19 16:00 98.1 101 28 127/78 (94) 96 11/11/19 16:00 Non-Rebreather 13.0 11/11/19 13:20 13.0 11/11/19 12:40 6.0 11/11/19 12:00 97.7 108 28 141/70 (93) 93 11/11/19 12:00 111 11/11/19 12:00 Non-Rebreather 13.0 11/11/19 12:00 13.0 Intake and Output 11/11/19 11/12/19 19:00 07:00 Intake Total 800 ml 325 ml Output Total 800 ml 200 ml Balance 0 ml 125 ml Intake Oral 400 ml 100 ml IV Total 400 ml 225 ml Output Urine Total 800 ml 200 ml # Bowel Movements 1 General Appearance: no acute distress HEENT: mucous membranes moist Respiratory/Chest: chest wall non-tender, decreased breath sounds Cardiovascular: normal peripheral pulses Abdomen: normal bowel sounds Extremities: no cyanosis Neurologic/Psychiatric: alert, responsive Microbiology Date/Time Source Procedure Growth Status 11/11/19 18:00 Urine,Clean Catch Urine Culture - Preliminary NO GROWTH Resulted Laboratory Tests 11/11/19 13:15: Arterial Blood pH 7.454H, Arterial Blood Partial Pressure CO2 35.3, Arterial Blood Partial Pressure O2 50.9L, Arterial Blood HCO3 24.2, Arterial Blood Oxygen Saturation 86.8*L, Arterial Blood Base Excess 0.8, Faheem Test Positive 11/11/19 18:00: Urine Color Yellow, Urine Appearance Cloudy, Urine pH 6.5, Urine Specific [place] 1.010, Urine Protein 3+H, Urine Glucose (UA) Negative, Urine Ketones Negative, Urine Blood 5+H, Urine Nitrite Negative, Urine Bilirubin Negative, Urine Urobilinogen 1H, Urine Leukocyte Esterase 3+H, Urine RBC TntcH, Urine WBC TntcH, Urine Squamous Epithelial Cells Occasional, Urine Bacteria ManyH, Urine Random Sodium 23 11/12/19 03:30: White Blood Count 11.8H, Red Blood Count 4.80, Hemoglobin 14.1, Hematocrit 43.2 , Mean Corpuscular Volume 90, Mean Corpuscular Hemoglobin 29.3, Mean Corpuscular Hemoglobin Concent 32.6, Red Cell Distribution Width 12.9, Platelet Count 400, Mean Platelet Volume 5.1L, Neutrophils (%) (Auto) 65.5, Lymphocytes ( %) (Auto) 25.1, Monocytes (%) (Auto) 7.6, Eosinophils (%) (Auto) 1.3, Basophils (%) (Auto) 0.5, Sodium Level 151H, Potassium Level 4.3, Chloride Level 114H, Carbon Dioxide Level 27, Anion Gap 10, Blood Urea Nitrogen 32H, Creatinine 1.0, Estimat Glomerular Filtration Rate 56.0, Glucose Level 115H, Calcium Level 9.5, Phosphorus Level 3.2, Magnesium Level 2.6H, Total Bilirubin 0.8, Aspartate Amino Transf (AST/SGOT) 80H, Alanine Aminotransferase (ALT/SGPT) 49, Alkaline Phosphatase 69, Lactate Dehydrogenase 478H, Troponin I 0.000, Total Protein 9.1H , Albumin 2.6L, Globulin 6.5, Albumin/Globulin Ratio 0.4L 11/12/19 10:10: Arterial Blood pH 7.449, Arterial Blood Partial Pressure CO2 36.4, Arterial Blood Partial Pressure O2 62.1L, Arterial Blood HCO3 24.7, Arterial Blood Oxygen Saturation 91.5L, Arterial Blood Base Excess 1.0, Faheem Test Positive Current Medications Medications (Trade) Dose Ordered Sig/Maryam Route PRN Reason Start Time Stop Time Status Last Admin Dose Admin Acetaminophen (Tylenol) 650 mg Q6H PRN ORAL MILD PAIN/TEMP >100.5 11/04/19 20:30 12/04/19 20:29 11/06/19 21:34 Ascorbic Acid (Vitamin C) 500 mg DAILY ORAL 11/08/19 09:00 12/08/19 08:59 11/12/19 09:02 Aspirin (Ecotrin) 81 mg DAILY ORAL 11/05/19 09:00 12/20/19 08:59 11/12/19 09:02 Dextrose 1,000 ml @ 75 mls/hr [id number] IV 11/12/19 08:15 12/12/19 08:14 11/12/19 09:36 Dextrose (Dextrose 50%) 25 ml Q30M PRN IV Hypoglycemia 11/04/19 10:45 02/02/20 10:44 Dextrose (Dextrose 50%) 50 ml Q30M PRN IV Hypoglycemia 11/04/19 10:45 02/02/20 10:44 Multivitamins (Multivitamins) 1 tab DAILY ORAL 11/08/19 09:00 12/08/19 08:59 11/12/19 09:02 Woody Bradley MD Nov 12, 2019 11:32
--- NOTE | 2019-11-12 11:39 | Infectious Diseases Prog Note ---
Assessment/Plan Assessment/Plan Assessment: Sepsis Fever, SP Acute hypoxic respiratory failure- s/p simple mask, now on NRB Pnuemonia- 2ry to COVID19 -11/08 CXR: Interval worsening bilateral airspace opacities, worse in the right lung. -11/05 CXR: Slight worsening of bilateral right greater than left interstitial and airspace opacities, over 3 days. Most likely pneumonia but pulmonary edema also a possibility -11/02 CXR: Borderline cardiomegaly. Bilateral interstitial disease. This is nonspecific, could indicate infiltrates, edema, among other possibilities SARS-COV2 PCR + -Influenza sc neg -Bcx NTD -Ferritin 568 (11/08)<- 841 (11/06) -CRP 7.9(11/10)<-11.2 (11/08) <- 7.1 (11/06) No leukocytosis UTI -11/10 u/a wbc olivia, nit neg, leuk +3; ucx NTD -u/a wbc tnct, nit neg, leuk +3; ucx >100k E.coli (hernandes S), >100k P.mirabilis ( R. Ceftriaxone, bactrim) Elevated LFTs, improving Dm2 HTN CVA SNF resident ([facility]) Plan: - Dc Cefepime #8/7 and monitor off abx -Will not start Plaquenil as not recommended by IDSA and NIH guidelines -Will consider steroids if worsening -11/07 SP Azithromycin #5 -11/03 SP Ceftriaxone #2 -f/u cx -Monitor CBC/CMP, temperaturse -Monitor inflammatory markers, CXR -f/u T spot Thank you for consulting [facility]. Will continue to follow along wiht you. Subjective Allergies: Coded Allergies: SULFAMETHOXAZOLE (Verified Allergy, Unknown, 11/03/19) TRIMETHOPRIM (Verified Allergy, Unknown, 11/03/19) Subjective afebrile on NRB mild leukocytosis Objective Vital Signs Last 24 Hour Vital Signs Date Time Temp Pulse Resp B/P (MAP) Pulse Ox O2 Delivery O2 Flow Rate FiO2 11/12/19 08:00 Nasal Cannula 6.0 11/12/19 08:00 13.0 11/12/19 08:00 80 11/12/19 07:16 98.0 96 26 135/86 (102) 98 11/12/19 04:00 13.0 11/12/19 04:00 97.5 97 22 140/104 (116) 100 11/12/19 04:00 Non-Rebreather 13.0 11/12/19 03:32 93 11/12/19 00:00 Non-Rebreather 13.0 11/12/19 00:00 13.0 11/12/19 00:00 98.6 98 27 130/76 (94) 98 11/11/19 23:23 95 11/11/19 20:00 13.0 11/11/19 20:00 Non-Rebreather 13.0 11/11/19 20:00 99 11/11/19 20:00 98.6 101 27 135/76 (95) 98 11/11/19 16:59 110 11/11/19 16:00 98.1 101 28 127/78 (94) 96 11/11/19 16:00 Non-Rebreather 13.0 11/11/19 13:20 13.0 11/11/19 12:40 6.0 11/11/19 12:00 97.7 108 28 141/70 (93) 93 11/11/19 12:00 111 11/11/19 12:00 Non-Rebreather 13.0 11/11/19 12:00 13.0 Height (Feet): 5 Height (Inches): 3.00 Weight (Pounds): 145 Objective not examined to limit covid exposure Microbiology Date/Time Source Procedure Growth Status 11/11/19 18:00 Urine,Clean Catch Urine Culture - Preliminary NO GROWTH Resulted Laboratory Tests Test 11/11/19 13:15 11/11/19 18:00 11/12/19 03:30 11/12/19 10:10 Arterial Blood pH 7.454 (7.350-7.450) 7.449 (7.350-7.450) Arterial Blood Partial Pressure CO2 35.3 mmHg (35.0-45.0) 36.4 mmHg (35.0-45.0) Arterial Blood Partial Pressure O2 50.9 mmHg (75.0-100.0) L 62.1 mmHg (75.0-100.0) L Arterial Blood HCO3 24.2 mmol/L (22.0-26.0) 24.7 mmol/L (22.0-26.0) Arterial Blood Oxygen Saturation 86.8 % (95-100) *L 91.5 % (95-100) L Arterial Blood Base Excess 0.8 (-2-2) 1.0 (-2-2) Faheem Test Positive Positive Urine Color Yellow Urine Appearance Cloudy Urine pH 6.5 (4.5-8.0) Urine Specific [place] 1.010 (1.005-1.035) Urine Protein 3+ (NEGATIVE) H Urine Glucose (UA) Negative (NEGATIVE) Urine Ketones Negative (NEGATIVE) Urine Blood 5+ (NEGATIVE) H Urine Nitrite Negative (NEGATIVE) Urine Bilirubin Negative (NEGATIVE) Urine Urobilinogen 1 MG/DL (0.0-1.0) H Urine Leukocyte Esterase 3+ (NEGATIVE) H Urine RBC Tntc /HPF (0 - 2) H Urine WBC Tntc /HPF (0 - 2) H Urine Squamous Epithelial Cells Occasional /LPF Urine Bacteria Many /HPF (NONE) H Urine Random Sodium 23 mmol/L (20-110) White Blood Count 11.8 K/UL (4.8-10.8) H Red Blood Count 4.80 M/UL (4.20-5.40) Hemoglobin 14.1 G/DL (12.0-16.0) Hematocrit 43.2 % (37.0-47.0) Mean Corpuscular Volume 90 FL (80-99) Mean Corpuscular Hemoglobin 29.3 PG (27.0-31.0) Mean Corpuscular Hemoglobin Concent 32.6 G/DL (32.0-36.0) Red Cell Distribution Width 12.9 % (11.6-14.8) Platelet Count 400 K/UL (150-450) Mean Platelet Volume 5.1 FL (6.5-10.1) L Neutrophils (%) (Auto) 65.5 % (45.0-75.0) Lymphocytes (%) (Auto) 25.1 % (20.0-45.0) Monocytes (%) (Auto) 7.6 % (1.0-10.0) Eosinophils (%) (Auto) 1.3 % (0.0-3.0) Basophils (%) (Auto) 0.5 % (0.0-2.0) Sodium Level 151 MMOL/L (136-145) H Potassium Level 4.3 MMOL/L (3.5-5.1) Chloride Level 114 MMOL/L (98-107) H Carbon Dioxide Level 27 MMOL/L (21-32) Anion Gap 10 mmol/L (5-15) Blood Urea Nitrogen 32 mg/dL (7-18) H Creatinine 1.0 MG/DL (0.55-1.30) Estimat Glomerular Filtration Rate 56.0 mL/min (>60) Glucose Level 115 MG/DL (74-106) H Calcium Level 9.5 MG/DL (8.5-10.1) Phosphorus Level 3.2 MG/DL (2.5-4.9) Magnesium Level 2.6 MG/DL (1.8-2.4) H Total Bilirubin 0.8 MG/DL (0.2-1.0) Aspartate Amino Transf (AST/SGOT) 80 U/L (15-37) H Alanine Aminotransferase (ALT/SGPT) 49 U/L (12-78) Alkaline Phosphatase 69 U/L (46-116) Lactate Dehydrogenase 478 U/L (81-234) H Troponin I 0.000 ng/mL (0.000-0.056) Total Protein 9.1 G/DL (6.4-8.2) H Albumin 2.6 G/DL (3.4-5.0) L Globulin 6.5 g/dL Albumin/Globulin Ratio 0.4 (1.0-2.7) L Current Medications Medications (Trade) Dose Ordered Sig/Maryam Route PRN Reason Start Time Stop Time Status Last Admin Dose Admin Acetaminophen (Tylenol) 650 mg Q6H PRN ORAL MILD PAIN/TEMP >100.5 11/04/19 20:30 12/04/19 20:29 11/06/19 21:34 Ascorbic Acid (Vitamin C) 500 mg DAILY ORAL 11/08/19 09:00 12/08/19 08:59 11/12/19 09:02 Aspirin (Ecotrin) 81 mg DAILY ORAL 11/05/19 09:00 12/20/19 08:59 11/12/19 09:02 Dextrose (Dextrose 50%) 25 ml Q30M PRN IV Hypoglycemia 11/04/19 10:45 02/02/20 10:44 Dextrose (Dextrose 50%) 50 ml Q30M PRN IV Hypoglycemia 11/04/19 10:45 02/02/20 10:44 Multivitamins (Multivitamins) 1 tab DAILY ORAL 11/08/19 09:00 12/08/19 08:59 11/12/19 09:02 Jenna Briseno M.D. Nov 12, 2019 11:39
[2019-11-12 12:00] VITALS: BP 137/82
--- NOTE | 2019-11-12 12:44 | General Progress Note ---
Assessment/Plan Problem List: (1) Malnutrition ICD Codes: E46 - Unspecified protein-calorie malnutrition SNOMED: 28549788 (2) Anemia ICD Codes: D64.9 - Anemia, unspecified SNOMED: 658594530 (3) Fever ICD Codes: R50.9 - Fever, unspecified SNOMED: 278842279 (4) CVA (cerebral vascular accident) ICD Codes: I63.9 - Cerebral infarction, unspecified SNOMED: 192338496 (5) HTN (hypertension) ICD Codes: I10 - Essential (primary) hypertension SNOMED: 30544094 (6) Diabetes ICD Codes: E11.9 - Type 2 diabetes mellitus without complications SNOMED: 96866275 (7) Renal failure ICD Codes: N19 - Unspecified kidney failure SNOMED: 30922189 (8) Confusion ICD Codes: R41.0 - Disorientation, unspecified SNOMED: 058265836 (9) Hypoxia ICD Codes: R09.02 - Hypoxemia SNOMED: 998045590 (10) Suspected 2019 novel coronavirus infection ICD Codes: R68.89 - Other general symptoms and signs SNOMED: 370408624 (11) UTI (urinary tract infection) ICD Codes: N39.0 - Urinary tract infection, site not specified SNOMED: 00048948 Status: unchanged Assessment/Plan: o2 pulm tx abx bp bs control cbc bmp am Subjective Constitutional: Reports: weakness Allergies: Coded Allergies: SULFAMETHOXAZOLE (Verified Allergy, Unknown, 11/03/19) TRIMETHOPRIM (Verified Allergy, Unknown, 11/03/19) All Systems: reviewed and negative except above Subjective o2 nc calm in bed Objective Last 24 Hour Vital Signs Date Time Temp Pulse Resp B/P (MAP) Pulse Ox O2 Delivery O2 Flow Rate FiO2 11/12/19 12:00 6.0 11/12/19 12:00 97.7 98 26 137/82 (100) 93 11/12/19 12:00 80 11/12/19 12:00 Nasal Cannula 6.0 11/12/19 08:00 Nasal Cannula 6.0 11/12/19 08:00 13.0 11/12/19 08:00 80 11/12/19 07:16 98.0 96 26 135/86 (102) 98 11/12/19 04:00 13.0 11/12/19 04:00 97.5 97 22 140/104 (116) 100 11/12/19 04:00 Non-Rebreather 13.0 11/12/19 03:32 93 11/12/19 00:00 Non-Rebreather 13.0 11/12/19 00:00 13.0 11/12/19 00:00 98.6 98 27 130/76 (94) 98 11/11/19 23:23 95 11/11/19 20:00 13.0 11/11/19 20:00 Non-Rebreather 13.0 11/11/19 20:00 99 11/11/19 20:00 98.6 101 27 135/76 (95) 98 11/11/19 16:59 110 11/11/19 16:00 98.1 101 28 127/78 (94) 96 11/11/19 16:00 Non-Rebreather 13.0 11/11/19 13:20 13.0 Intake and Output 11/11/19 11/12/19 19:00 07:00 Intake Total 800 ml 325 ml Output Total 800 ml 200 ml Balance 0 ml 125 ml Intake Oral 400 ml 100 ml IV Total 400 ml 225 ml Output Urine Total 800 ml 200 ml # Bowel Movements 1 Laboratory Tests 11/11/19 13:15: Arterial Blood pH 7.454H, Arterial Blood Partial Pressure CO2 35.3, Arterial Blood Partial Pressure O2 50.9L, Arterial Blood HCO3 24.2, Arterial Blood Oxygen Saturation 86.8*L, Arterial Blood Base Excess 0.8, Faheem Test Positive 11/11/19 18:00: Urine Color Yellow, Urine Appearance Cloudy, Urine pH 6.5, Urine Specific [place] 1.010, Urine Protein 3+H, Urine Glucose (UA) Negative, Urine Ketones Negative, Urine Blood 5+H, Urine Nitrite Negative, Urine Bilirubin Negative, Urine Urobilinogen 1H, Urine Leukocyte Esterase 3+H, Urine RBC TntcH, Urine WBC TntcH, Urine Squamous Epithelial Cells Occasional, Urine Bacteria ManyH, Urine Random Sodium 23 11/12/19 03:30: White Blood Count 11.8H, Red Blood Count 4.80, Hemoglobin 14.1, Hematocrit 43.2 , Mean Corpuscular Volume 90, Mean Corpuscular Hemoglobin 29.3, Mean Corpuscular Hemoglobin Concent 32.6, Red Cell Distribution Width 12.9, Platelet Count 400, Mean Platelet Volume 5.1L, Neutrophils (%) (Auto) 65.5, Lymphocytes ( %) (Auto) 25.1, Monocytes (%) (Auto) 7.6, Eosinophils (%) (Auto) 1.3, Basophils (%) (Auto) 0.5, Sodium Level 151H, Potassium Level 4.3, Chloride Level 114H, Carbon Dioxide Level 27, Anion Gap 10, Blood Urea Nitrogen 32H, Creatinine 1.0, Estimat Glomerular Filtration Rate 56.0, Glucose Level 115H, Calcium Level 9.5, Phosphorus Level 3.2, Magnesium Level 2.6H, Total Bilirubin 0.8, Aspartate Amino Transf (AST/SGOT) 80H, Alanine Aminotransferase (ALT/SGPT) 49, Alkaline Phosphatase 69, Lactate Dehydrogenase 478H, Troponin I 0.000, Total Protein 9.1H , Albumin 2.6L, Globulin 6.5, Albumin/Globulin Ratio 0.4L 11/12/19 10:10: Arterial Blood pH 7.449, Arterial Blood Partial Pressure CO2 36.4, Arterial Blood Partial Pressure O2 62.1L, Arterial Blood HCO3 24.7, Arterial Blood Oxygen Saturation 91.5L, Arterial Blood Base Excess 1.0, Faheem Test Positive Height (Feet): 5 Height (Inches): 3.00 Weight (Pounds): 145 General Appearance: lethargic EENT: normal ENT inspection Neck: normal alignment Cardiovascular: normal rate, regular rhythm Respiratory/Chest: no respiratory distress, no accessory muscle use Extremities: normal inspection Skin: normal pigmentation Trevor Cabrera DO Nov 12, 2019 12:44
[2019-11-12] MEDS: Docusate 100mg/10ml Liq ORAL PRN ×2 (13:41→23:47)
--- NOTE | 2019-11-12 14:07 | Diagnostic Imaging Report ---
Indication: Cough Technique: One view of the chest Comparison: 11/11/2019 Findings: Increasingly dense consolidation is seen in the right upper lobe periphery and in the left midlung periphery. Generalized parenchymal infiltrates elsewhere appear stable. Heart size is normal. Impression: Increasing infiltrates bilaterally, over one day
--- NOTE | 2019-11-12 14:48 | Surgery Progress Note ---
Surgery Progress Note Subjective Additional Comments no acute events stable comfortable Objective Last 24 Hour Vital Signs Date Time Temp Pulse Resp B/P (MAP) Pulse Ox O2 Delivery O2 Flow Rate FiO2 11/12/19 12:00 6.0 11/12/19 12:00 97.7 98 26 137/82 (100) 93 11/12/19 12:00 80 11/12/19 12:00 Nasal Cannula 6.0 11/12/19 08:00 Nasal Cannula 6.0 11/12/19 08:00 13.0 11/12/19 08:00 80 11/12/19 07:16 98.0 96 26 135/86 (102) 98 11/12/19 04:00 13.0 11/12/19 04:00 97.5 97 22 140/104 (116) 100 11/12/19 04:00 Non-Rebreather 13.0 11/12/19 03:32 93 11/12/19 00:00 Non-Rebreather 13.0 11/12/19 00:00 13.0 11/12/19 00:00 98.6 98 27 130/76 (94) 98 11/11/19 23:23 95 11/11/19 20:00 13.0 11/11/19 20:00 Non-Rebreather 13.0 11/11/19 20:00 99 11/11/19 20:00 98.6 101 27 135/76 (95) 98 11/11/19 16:59 110 11/11/19 16:00 98.1 101 28 127/78 (94) 96 11/11/19 16:00 Non-Rebreather 13.0 I&O Intake and Output 11/11/19 11/12/19 19:00 07:00 Intake Total 800 ml 325 ml Output Total 800 ml 200 ml Balance 0 ml 125 ml Intake Oral 400 ml 100 ml IV Total 400 ml 225 ml Output Urine Total 800 ml 200 ml # Bowel Movements 1 Dressing: other Wound: other Drains: other Cardiovascular: RSR Respiratory: decreased breath sounds Abdomen: soft, non-tender, present bowel sounds Extremities: no tenderness, no cyanosis Laboratory Tests Test 11/11/19 18:00 11/12/19 03:30 11/12/19 10:10 Urine Color Yellow Urine Appearance Cloudy Urine pH 6.5 (4.5-8.0) Urine Specific [place] 1.010 (1.005-1.035) Urine Protein 3+ (NEGATIVE) H Urine Glucose (UA) Negative (NEGATIVE) Urine Ketones Negative (NEGATIVE) Urine Blood 5+ (NEGATIVE) H Urine Nitrite Negative (NEGATIVE) Urine Bilirubin Negative (NEGATIVE) Urine Urobilinogen 1 MG/DL (0.0-1.0) H Urine Leukocyte Esterase 3+ (NEGATIVE) H Urine RBC Tntc /HPF (0 - 2) H Urine WBC Tntc /HPF (0 - 2) H Urine Squamous Epithelial Cells Occasional /LPF Urine Bacteria Many /HPF (NONE) H Urine Random Sodium 23 mmol/L (20-110) White Blood Count 11.8 K/UL (4.8-10.8) H Red Blood Count 4.80 M/UL (4.20-5.40) Hemoglobin 14.1 G/DL (12.0-16.0) Hematocrit 43.2 % (37.0-47.0) Mean Corpuscular Volume 90 FL (80-99) Mean Corpuscular Hemoglobin 29.3 PG (27.0-31.0) Mean Corpuscular Hemoglobin Concent 32.6 G/DL (32.0-36.0) Red Cell Distribution Width 12.9 % (11.6-14.8) Platelet Count 400 K/UL (150-450) Mean Platelet Volume 5.1 FL (6.5-10.1) L Neutrophils (%) (Auto) 65.5 % (45.0-75.0) Lymphocytes (%) (Auto) 25.1 % (20.0-45.0) Monocytes (%) (Auto) 7.6 % (1.0-10.0) Eosinophils (%) (Auto) 1.3 % (0.0-3.0) Basophils (%) (Auto) 0.5 % (0.0-2.0) Sodium Level 151 MMOL/L (136-145) H Potassium Level 4.3 MMOL/L (3.5-5.1) Chloride Level 114 MMOL/L (98-107) H Carbon Dioxide Level 27 MMOL/L (21-32) Anion Gap 10 mmol/L (5-15) Blood Urea Nitrogen 32 mg/dL (7-18) H Creatinine 1.0 MG/DL (0.55-1.30) Estimat Glomerular Filtration Rate 56.0 mL/min (>60) Glucose Level 115 MG/DL (74-106) H Calcium Level 9.5 MG/DL (8.5-10.1) Phosphorus Level 3.2 MG/DL (2.5-4.9) Magnesium Level 2.6 MG/DL (1.8-2.4) H Total Bilirubin 0.8 MG/DL (0.2-1.0) Aspartate Amino Transf (AST/SGOT) 80 U/L (15-37) H Alanine Aminotransferase (ALT/SGPT) 49 U/L (12-78) Alkaline Phosphatase 69 U/L (46-116) Lactate Dehydrogenase 478 U/L (81-234) H Troponin I 0.000 ng/mL (0.000-0.056) Total Protein 9.1 G/DL (6.4-8.2) H Albumin 2.6 G/DL (3.4-5.0) L Globulin 6.5 g/dL Albumin/Globulin Ratio 0.4 (1.0-2.7) L Arterial Blood pH 7.449 (7.350-7.450) Arterial Blood Partial Pressure CO2 36.4 mmHg (35.0-45.0) Arterial Blood Partial Pressure O2 62.1 mmHg (75.0-100.0) L Arterial Blood HCO3 24.7 mmol/L (22.0-26.0) Arterial Blood Oxygen Saturation 91.5 % (95-100) L Arterial Blood Base Excess 1.0 (-2-2) Faheem Test Positive Plan Problems: (1) Hypoxia Assessment & Plan: supplemental O2 monitor closely (2) UTI (urinary tract infection) (3) Suspected 2019 novel coronavirus infection (4) Pneumonia due to COVID-19 virus Assessment & Plan: The heart is borderline enlarged. There are bilateral interstitial opacities diffusely. No definite focal airspace consolidation. The pleural spaces are clear. Impression: Borderline cardiomegaly. Bilateral interstitial disease. This is nonspecific, could indicate infiltrates, edema, among other possibilities on Non rebreather can desaturate may consider steroids (5) Fever (6) Anemia (7) Confusion (8) Diabetes (9) Renal failure (10) Malnutrition Assessment & Plan: DAILY ESTIMATED NEEDS: Needs based on Wound, DM/ 53kg abw 25-30 kcals/kg 9943-2060 total kcals 1.25-1.5 g protein/kg 66-79 g total protein 25-30 mL/kg 7827-3143 total fluid mLs NUTRITION DIAGNOSIS: * Increased kcal/prot intake needs R/T wound healing as evidenced by admitted w/ DTPI wound @ L ischium, non-blanching erythema at cleft of buttocks. * Altered nutrition related lab values R/T diabetes as evidenced by elev POC glu (174, 102, 151, 123, now improved), on NISS. CURRENT DIET:REGULAR PO DIET RECOMMENDATIONS: CCHO med/ texture as tolerated or per [employer] ADDITIONAL RECOMMENDATIONS: * Per SNF: HT=61" QT=053exo * Wound healing: add MVI x 1, Vit C 500mg QD, SYED BID * sliding scale insulin prn * Texture downgrade for chewing deficit as per RN -> consider pureed, rec [employer] eval * High kcal supplement w/ meals, will start w/ Ensure Clear and monitor acceptance (250 kcal/ 8g pro each) (11) HTN (hypertension) (12) CVA (cerebral vascular accident) (13) Decubitus skin ulcer Assessment & Plan: Pt presented on admission with DTPI L ischium. Base of wound is purple, indurated. An area of hyperpigmentation noted distally but in close to wound bed. Non-blanching erythema cleft of buttocks. Hyperpigmentation from previous wound noted to R ischium. Within area of hyperpigmentation an area of non-blanchable erythema noted. No other skin concerns noted. Tx.Plan: Apply Moisture Barrier Paste to Sacrum. Cover with Optifoam drsg. Change every 3 days and prn. Apply Moisture Barrier Paste to R and L Ischium. Cover each area with Optifoam drsg. Change every 3 days and prn. Apply Cavilon Skin Barrier to both heels. Cover each heel with Optifoam drsg. Change every 7 days and prn. Reposition at least every 2hours or as tolerated. Off-load heels with Pillow. DAILY ESTIMATED NEEDS: Needs based on Wound, DM/ 53kg abw 25-30 kcals/kg 7841-6425 total kcals 1.25-1.5 g protein/kg 66-79 g total protein 25-30 mL/kg 1106-2245 total fluid mLs NUTRITION DIAGNOSIS: * Increased kcal/prot intake needs R/T wound healing as evidenced by admitted w/ DTPI wound @ L ischium, non-blanching erythema at cleft of buttocks. * Altered nutrition related lab values R/T diabetes as evidenced by elev POC glu (174, 102, 151, 123), on NISS. CURRENT DIET:REGULAR PO DIET RECOMMENDATIONS: CCHO med/ texture as tolerated or per [employer]PERVIS[employer] ADDITIONAL RECOMMENDATIONS: * Per SNF: HT=61" JA=348ply * Wound healing: add MVI x 1, Vit C 500mg QD add Syed BID * Texture downgrade for chewing deficit as per RN -> consider pureed * Glucerna x 1 with variable intake (220kcal/10g prot each) Humble Sewell Nov 12, 2019 14:47
--- NOTE | 2019-11-12 15:38 | Nephrology Progress Note ---
Assessment/Plan Problem List: (1) Renal failure (2) Electrolyte imbalance (3) Pneumonia due to COVID-19 virus (4) UTI (urinary tract infection) (5) Diabetes Assessment Renal parameters suggest dehydration and free water deficit, and also effect of Lasix use in the past Hypernatremia, Azotemia, high uric acid COVID positive pneumonia UTI Diabetes mellitus Hypertension History of CVA Allergy to Bactrim long-term resident Plan Will hold 1/2 NS IV fluids, discussed with Dr. Bradley Monitor electrolytes and renal parameters Continue per consultants Per orders Subjective ROS Limited/Unobtainable: No Constitutional: Reports: malaise, other - Clinically improved eating better Objective Objective Last 24 Hour Vital Signs Date Time Temp Pulse Resp B/P (MAP) Pulse Ox O2 Delivery O2 Flow Rate FiO2 11/12/19 12:00 6.0 11/12/19 12:00 97.7 98 26 137/82 (100) 93 11/12/19 12:00 80 11/12/19 12:00 Nasal Cannula 6.0 11/12/19 08:00 Nasal Cannula 6.0 11/12/19 08:00 13.0 11/12/19 08:00 80 11/12/19 07:16 98.0 96 26 135/86 (102) 98 11/12/19 04:00 13.0 11/12/19 04:00 97.5 97 22 140/104 (116) 100 11/12/19 04:00 Non-Rebreather 13.0 11/12/19 03:32 93 11/12/19 00:00 Non-Rebreather 13.0 11/12/19 00:00 13.0 11/12/19 00:00 98.6 98 27 130/76 (94) 98 11/11/19 23:23 95 11/11/19 20:00 13.0 11/11/19 20:00 Non-Rebreather 13.0 11/11/19 20:00 99 11/11/19 20:00 98.6 101 27 135/76 (95) 98 11/11/19 16:59 110 11/11/19 16:00 98.1 101 28 127/78 (94) 96 11/11/19 16:00 Non-Rebreather 13.0 Intake and Output 11/11/19 11/12/19 19:00 07:00 Intake Total 800 ml 325 ml Output Total 800 ml 200 ml Balance 0 ml 125 ml Intake Oral 400 ml 100 ml IV Total 400 ml 225 ml Output Urine Total 800 ml 200 ml # Bowel Movements 1 Laboratory Tests 11/11/19 18:00: Urine Color Yellow, Urine Appearance Cloudy, Urine pH 6.5, Urine Specific Minter 1.010, Urine Protein 3+H, Urine Glucose (UA) Negative, Urine Ketones Negative, Urine Blood 5+H, Urine Nitrite Negative, Urine Bilirubin Negative, Urine Urobilinogen 1H, Urine Leukocyte Esterase 3+H, Urine RBC TntcH, Urine WBC TntcH, Urine Squamous Epithelial Cells Occasional, Urine Bacteria ManyH, Urine Random Sodium 23 11/12/19 03:30: White Blood Count 11.8H, Red Blood Count 4.80, Hemoglobin 14.1, Hematocrit 43.2 , Mean Corpuscular Volume 90, Mean Corpuscular Hemoglobin 29.3, Mean Corpuscular Hemoglobin Concent 32.6, Red Cell Distribution Width 12.9, Platelet Count 400, Mean Platelet Volume 5.1L, Neutrophils (%) (Auto) 65.5, Lymphocytes ( %) (Auto) 25.1, Monocytes (%) (Auto) 7.6, Eosinophils (%) (Auto) 1.3, Basophils (%) (Auto) 0.5, Sodium Level 151H, Potassium Level 4.3, Chloride Level 114H, Carbon Dioxide Level 27, Anion Gap 10, Blood Urea Nitrogen 32H, Creatinine 1.0, Estimat Glomerular Filtration Rate 56.0, Glucose Level 115H, Calcium Level 9.5, Phosphorus Level 3.2, Magnesium Level 2.6H, Total Bilirubin 0.8, Aspartate Amino Transf (AST/SGOT) 80H, Alanine Aminotransferase (ALT/SGPT) 49, Alkaline Phosphatase 69, Lactate Dehydrogenase 478H, Troponin I 0.000, Total Protein 9.1H , Albumin 2.6L, Globulin 6.5, Albumin/Globulin Ratio 0.4L 11/12/19 10:10: Arterial Blood pH 7.449, Arterial Blood Partial Pressure CO2 36.4, Arterial Blood Partial Pressure O2 62.1L, Arterial Blood HCO3 24.7, Arterial Blood Oxygen Saturation 91.5L, Arterial Blood Base Excess 1.0, Faheem Test Positive Height (Feet): 5 Height (Inches): 3.00 Weight (Pounds): 145 General Appearance: no apparent distress, lethargic Cardiovascular: tachycardia Respiratory/Chest: decreased breath sounds Abdomen: soft Wisam Love MD Nov 12, 2019 15:38
[2019-11-12 16:00] VITALS: BP 122/76
[2019-11-12 20:00] VITALS: BP 132/81
[2019-11-12] MEDS: Heparin 5000 units/ml inj SUBQ SCH (20:09)
[2019-11-13] VITALS (7 sets, daily range): BP systolic 128–141; BP diastolic 75–100
[2019-11-13 05:47] LABS: BASOPHILS % (AUTO) 0.7 % (0.0-2.0); EOSINOPHILS % (AUTO) 2.1 % (0.0-3.0); HEMATOCRIT 41.1 % (37.0-47.0); HEMOGLOBIN 13.7 G/DL (12.0-16.0); LYMPHOCYTES % (AUTO) 27.8 % (20.0-45.0); MEAN CORPUSCULAR VOLUME 89 FL (80-99); MONOCYTES % (AUTO) 7.6 % (1.0-10.0); NEUTROPHILS % (AUTO) 61.7 % (45.0-75.0); PLATELET COUNT 382 K/UL (150-450); RED BLOOD COUNT 4.62 M/UL (4.20-5.40); RED CELL DISTRIBUTION WIDTH 12.5 % (11.6-14.8); WHITE BLOOD COUNT 8.5 K/UL (4.8-10.8)
[2019-11-13 06:30] LABS: ANION GAP 7 mmol/L (5-15); BLOOD UREA NITROGEN 19 mg/dL (7-18); CALCIUM 9.5 MG/DL (8.5-10.1); CARBON DIOXIDE 29 MMOL/L (21-32); CHLORIDE 110 MMOL/L (98-107); CREATININE 0.8 MG/DL (0.55-1.30); FERRITIN 271 NG/ML (8-388); POTASSIUM 3.6 MMOL/L (3.5-5.1); SODIUM 146 MMOL/L (136-145)
--- NOTE | 2019-11-13 08:46 | General Progress Note ---
Assessment/Plan Problem List: (1) Malnutrition ICD Codes: E46 - Unspecified protein-calorie malnutrition SNOMED: 45464034 (2) Anemia ICD Codes: D64.9 - Anemia, unspecified SNOMED: 985628688 (3) Fever ICD Codes: R50.9 - Fever, unspecified SNOMED: 692966446 (4) CVA (cerebral vascular accident) ICD Codes: I63.9 - Cerebral infarction, unspecified SNOMED: 564935889 (5) HTN (hypertension) ICD Codes: I10 - Essential (primary) hypertension SNOMED: 47222651 (6) Diabetes ICD Codes: E11.9 - Type 2 diabetes mellitus without complications SNOMED: 84862719 (7) Renal failure ICD Codes: N19 - Unspecified kidney failure SNOMED: 74687376 (8) Confusion ICD Codes: R41.0 - Disorientation, unspecified SNOMED: 899077069 (9) Hypoxia ICD Codes: R09.02 - Hypoxemia SNOMED: 702610651 (10) Suspected 2019 novel coronavirus infection ICD Codes: R68.89 - Other general symptoms and signs SNOMED: 563137829 (11) UTI (urinary tract infection) ICD Codes: N39.0 - Urinary tract infection, site not specified SNOMED: 42305648 Status: unchanged Assessment/Plan: o2 pulm tx abx bp bs control cbc bmp am Subjective Constitutional: Reports: weakness Allergies: Coded Allergies: SULFAMETHOXAZOLE (Verified Allergy, Unknown, 11/03/19) TRIMETHOPRIM (Verified Allergy, Unknown, 11/03/19) All Systems: reviewed and negative except above Subjective o2 nc calm in bed Objective Last 24 Hour Vital Signs Date Time Temp Pulse Resp B/P (MAP) Pulse Ox O2 Delivery O2 Flow Rate FiO2 11/13/19 08:00 5.0 11/13/19 08:00 99.0 90 20 131/84 (100) 98 11/13/19 08:00 Nasal Cannula 5.0 11/13/19 04:00 99.2 90 20 134/76 (95) 94 11/13/19 04:00 5.0 11/13/19 04:00 Nasal Cannula 5.0 11/13/19 03:34 91 11/13/19 00:00 99.1 90 22 141/75 (97) 95 11/13/19 00:00 Nasal Cannula 5.0 11/13/19 00:00 5.0 11/13/19 00:00 95 11/12/19 20:00 5.0 11/12/19 20:00 Nasal Cannula 5.0 11/12/19 20:00 99.0 90 22 132/81 (98) 94 11/12/19 20:00 103 11/12/19 16:00 98.1 91 24 122/76 (91) 96 11/12/19 16:00 6.0 11/12/19 16:00 85 11/12/19 16:00 Nasal Cannula 6.0 11/12/19 12:00 6.0 11/12/19 12:00 97.7 98 26 137/82 (100) 93 11/12/19 12:00 80 11/12/19 12:00 Nasal Cannula 6.0 Intake and Output 11/12/19 11/13/19 19:00 07:00 Intake Total 1150 ml 400 ml Output Total 1000 ml Balance 150 ml 400 ml Intake Oral 850 ml 400 ml IV Total 300 ml Output Urine Total 1000 ml # Voids 2 Laboratory Tests 11/12/19 10:10: Arterial Blood pH 7.449, Arterial Blood Partial Pressure CO2 36.4, Arterial Blood Partial Pressure O2 62.1L, Arterial Blood HCO3 24.7, Arterial Blood Oxygen Saturation 91.5L, Arterial Blood Base Excess 1.0, Faheem Test Positive 11/13/19 03:45: White Blood Count 8.5, Red Blood Count 4.62, Hemoglobin 13.7, Hematocrit 41.1, Mean Corpuscular Volume 89, Mean Corpuscular Hemoglobin 29.6, Mean Corpuscular Hemoglobin Concent 33.2, Red Cell Distribution Width 12.5, Platelet Count 382, Mean Platelet Volume 5.1L, Neutrophils (%) (Auto) 61.7, Lymphocytes (%) (Auto) 27.8, Monocytes (%) (Auto) 7.6, Eosinophils (%) (Auto) 2.1, Basophils (%) (Auto ) 0.7, D-Dimer 1.71H, Sodium Level 146H, Potassium Level 3.6, Chloride Level 110H, Carbon Dioxide Level 29, Anion Gap 7, Blood Urea Nitrogen 19H, Creatinine 0.8, Estimat Glomerular Filtration Rate > 60, Glucose Level 147H, Calcium Level 9.5, Ferritin 271, C-Reactive Protein, Quantitative 11.3H Height (Feet): 5 Height (Inches): 3.00 Weight (Pounds): 146 General Appearance: lethargic EENT: normal ENT inspection Neck: normal alignment Cardiovascular: normal rate, regular rhythm Respiratory/Chest: no respiratory distress, no accessory muscle use Extremities: normal range of motion Skin: normal pigmentation Trevor Cabrera DO Nov 13, 2019 08:46
[2019-11-13] MEDS: Aspirin EC 81mg tab ORAL SCH (09:01)
[2019-11-13] MEDS: Ascorbic Acid 500mg tab ORAL SCH (09:01)
[2019-11-13] MEDS: Heparin 5000 units/ml inj SUBQ SCH ×2 (09:02→21:37)
--- NOTE | 2019-11-13 09:49 | General Progress Note ---
Assessment/Plan Problem List: (1) Electrolyte imbalance ICD Codes: E87.8 - Other disorders of electrolyte and fluid balance, not elsewhere classified SNOMED: 272233362 (2) Decubitus skin ulcer ICD Codes: L89.90 - Pressure ulcer of unspecified site, unspecified stage SNOMED: 265682052 (3) HTN (hypertension) ICD Codes: I10 - Essential (primary) hypertension SNOMED: 22362784 (4) CVA (cerebral vascular accident) ICD Codes: I63.9 - Cerebral infarction, unspecified SNOMED: 615742421 (5) Malnutrition ICD Codes: E46 - Unspecified protein-calorie malnutrition SNOMED: 28022447 (6) Diabetes ICD Codes: E11.9 - Type 2 diabetes mellitus without complications SNOMED: 30092483 (7) Anemia ICD Codes: D64.9 - Anemia, unspecified SNOMED: 121769701 (8) Pneumonia due to COVID-19 virus ICD Codes: U07.1 - COVID-19; J12.89 - Other viral pneumonia SNOMED: 984269640, 227839605 (9) UTI (urinary tract infection) ICD Codes: N39.0 - Urinary tract infection, site not specified SNOMED: 32898642 Status: unchanged Assessment/Plan: bowel regimen kub consider adding linzess tyroid labs will fu Subjective ROS Limited/Unobtainable: No Allergies: Coded Allergies: SULFAMETHOXAZOLE (Verified Allergy, Unknown, 11/03/19) TRIMETHOPRIM (Verified Allergy, Unknown, 11/03/19) Objective Last 24 Hour Vital Signs Date Time Temp Pulse Resp B/P (MAP) Pulse Ox O2 Delivery O2 Flow Rate FiO2 11/13/19 08:00 5.0 11/13/19 08:00 99.0 90 20 131/84 (100) 98 11/13/19 08:00 Nasal Cannula 5.0 11/13/19 04:00 99.2 90 20 134/76 (95) 94 11/13/19 04:00 5.0 11/13/19 04:00 Nasal Cannula 5.0 11/13/19 03:34 91 11/13/19 00:00 99.1 90 22 141/75 (97) 95 11/13/19 00:00 Nasal Cannula 5.0 11/13/19 00:00 5.0 11/13/19 00:00 95 11/12/19 20:00 5.0 11/12/19 20:00 Nasal Cannula 5.0 11/12/19 20:00 99.0 90 22 132/81 (98) 94 11/12/19 20:00 103 11/12/19 16:00 98.1 91 24 122/76 (91) 96 11/12/19 16:00 6.0 11/12/19 16:00 85 11/12/19 16:00 Nasal Cannula 6.0 11/12/19 12:00 6.0 11/12/19 12:00 97.7 98 26 137/82 (100) 93 11/12/19 12:00 80 11/12/19 12:00 Nasal Cannula 6.0 Intake and Output 11/12/19 11/13/19 19:00 07:00 Intake Total 1150 ml 400 ml Output Total 1000 ml Balance 150 ml 400 ml Intake Oral 850 ml 400 ml IV Total 300 ml Output Urine Total 1000 ml # Voids 2 Laboratory Tests 11/12/19 10:10: Arterial Blood pH 7.449, Arterial Blood Partial Pressure CO2 36.4, Arterial Blood Partial Pressure O2 62.1L, Arterial Blood HCO3 24.7, Arterial Blood Oxygen Saturation 91.5L, Arterial Blood Base Excess 1.0, Faheem Test Positive 11/13/19 03:45: White Blood Count 8.5, Red Blood Count 4.62, Hemoglobin 13.7, Hematocrit 41.1, Mean Corpuscular Volume 89, Mean Corpuscular Hemoglobin 29.6, Mean Corpuscular Hemoglobin Concent 33.2, Red Cell Distribution Width 12.5, Platelet Count 382, Mean Platelet Volume 5.1L, Neutrophils (%) (Auto) 61.7, Lymphocytes (%) (Auto) 27.8, Monocytes (%) (Auto) 7.6, Eosinophils (%) (Auto) 2.1, Basophils (%) (Auto ) 0.7, D-Dimer 1.71H, Sodium Level 146H, Potassium Level 3.6, Chloride Level 110H, Carbon Dioxide Level 29, Anion Gap 7, Blood Urea Nitrogen 19H, Creatinine 0.8, Estimat Glomerular Filtration Rate > 60, Glucose Level 147H, Calcium Level 9.5, Ferritin 271, C-Reactive Protein, Quantitative 11.3H Height (Feet): 5 Height (Inches): 3.00 Weight (Pounds): 146 General Appearance: alert EENT: normal ENT inspection Neck: supple Cardiovascular: normal rate Respiratory/Chest: decreased breath sounds Abdomen: normal bowel sounds, non tender, soft Extremities: non-tender Luke Noe MD Nov 13, 2019 09:49
--- NOTE | 2019-11-13 10:20 | Pulmonology Progress Note ---
Assessment/Plan Assessment/Plan IMPRESSION: 1. UTI. 2. Hypoxemia. 3. Hypertension. 4. Diabetes mellitus. 5. Previous CVA. 6. Cognitive impairment. 7. snf resident. 8. Bactrim allergy. 9. COVID 19 positive DISCUSSION: Agree with admission and care. Continue broad-spectrum antibiotics. Ordered oxygen and pulmonary hygiene. 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 CXR improved SaO2 90% on 6L/min Woody Bradley M.D. Subjective ROS Limited/Unobtainable: No Interval Events: On 6L/min O2; none new Constitutional: Reports: no symptoms HEENT: Repors: no symptoms Respiratory: Reports: no symptoms Cardiovascular: Reports: no symptoms Gastrointestinal/Abdominal: Reports: no symptoms Allergies: Coded Allergies: SULFAMETHOXAZOLE (Verified Allergy, Unknown, 11/03/19) TRIMETHOPRIM (Verified Allergy, Unknown, 11/03/19) All Systems: reviewed and negative except above Objective Last 24 Hour Vital Signs Date Time Temp Pulse Resp B/P (MAP) Pulse Ox O2 Delivery O2 Flow Rate FiO2 11/13/19 08:00 5.0 11/13/19 08:00 74 11/13/19 08:00 99.0 90 20 131/84 (100) 98 11/13/19 08:00 Nasal Cannula 5.0 11/13/19 04:00 99.2 90 20 134/76 (95) 94 11/13/19 04:00 5.0 11/13/19 04:00 Nasal Cannula 5.0 11/13/19 03:34 91 11/13/19 00:00 99.1 90 22 141/75 (97) 95 11/13/19 00:00 Nasal Cannula 5.0 11/13/19 00:00 5.0 11/13/19 00:00 95 11/12/19 20:00 5.0 11/12/19 20:00 Nasal Cannula 5.0 11/12/19 20:00 99.0 90 22 132/81 (98) 94 11/12/19 20:00 103 11/12/19 16:00 98.1 91 24 122/76 (91) 96 11/12/19 16:00 6.0 11/12/19 16:00 85 11/12/19 16:00 Nasal Cannula 6.0 11/12/19 12:00 6.0 11/12/19 12:00 97.7 98 26 137/82 (100) 93 11/12/19 12:00 80 11/12/19 12:00 Nasal Cannula 6.0 Intake and Output 11/12/19 11/13/19 19:00 07:00 Intake Total 1150 ml 400 ml Output Total 1000 ml Balance 150 ml 400 ml Intake Oral 850 ml 400 ml IV Total 300 ml Output Urine Total 1000 ml # Voids 2 General Appearance: no acute distress HEENT: mucous membranes moist Respiratory/Chest: chest wall non-tender, decreased breath sounds Cardiovascular: normal peripheral pulses Abdomen: normal bowel sounds Extremities: no cyanosis Neurologic/Psychiatric: alert, responsive Microbiology Date/Time Source Procedure Growth Status 11/11/19 18:00 Urine,Clean Catch Urine Culture - Preliminary Gram Positive Cocci Resulted Laboratory Tests 11/13/19 03:45: White Blood Count 8.5, Red Blood Count 4.62, Hemoglobin 13.7, Hematocrit 41.1, Mean Corpuscular Volume 89, Mean Corpuscular Hemoglobin 29.6, Mean Corpuscular Hemoglobin Concent 33.2, Red Cell Distribution Width 12.5, Platelet Count 382, Mean Platelet Volume 5.1L, Neutrophils (%) (Auto) 61.7, Lymphocytes (%) (Auto) 27.8, Monocytes (%) (Auto) 7.6, Eosinophils (%) (Auto) 2.1, Basophils (%) (Auto ) 0.7, D-Dimer 1.71H, Sodium Level 146H, Potassium Level 3.6, Chloride Level 110H, Carbon Dioxide Level 29, Anion Gap 7, Blood Urea Nitrogen 19H, Creatinine 0.8, Estimat Glomerular Filtration Rate > 60, Glucose Level 147H, Calcium Level 9.5, Ferritin 271, C-Reactive Protein, Quantitative 11.3H, Thyroid Stimulating Hormone (TSH) [Pending] Current Medications Medications (Trade) Dose Ordered Sig/Maryam Route PRN Reason Start Time Stop Time Status Last Admin Dose Admin Acetaminophen (Tylenol) 650 mg Q6H PRN ORAL MILD PAIN/TEMP >100.5 11/04/19 20:30 12/04/19 20:29 11/12/19 23:48 Ascorbic Acid (Vitamin C) 500 mg DAILY ORAL 11/08/19 09:00 12/08/19 08:59 11/13/19 09:01 Aspirin (Ecotrin) 81 mg DAILY ORAL 11/05/19 09:00 12/20/19 08:59 11/13/19 09:01 Bisacodyl (Dulcolax) 10 mg ONCE RECTAL 11/13/19 09:45 11/13/19 12:00 Dextrose (Dextrose 50%) 25 ml Q30M PRN IV Hypoglycemia 11/04/19 10:45 02/02/20 10:44 Dextrose (Dextrose 50%) 50 ml Q30M PRN IV Hypoglycemia 11/04/19 10:45 02/02/20 10:44 Docusate Sodium (Colace) 100 mg TIDPRN PRN ORAL Constipation 11/12/19 13:15 12/12/19 13:14 11/12/19 23:47 Heparin Sodium (Porcine) (Heparin 5000 units/ml) 5,000 units EVERY 12 HOURS SUBQ 11/12/19 21:00 12/27/19 20:59 11/13/19 09:02 Lactulose (Cephulac) 10 gm THREE TIMES A DAY ORAL 11/13/19 13:00 12/13/19 12:59 Multivitamins (Multivitamins) 1 tab DAILY ORAL 11/08/19 09:00 12/08/19 08:59 11/13/19 09:01 Polyethylene Glycol (Miralax) 17 gm BEDTIME ORAL 11/13/19 21:00 12/13/19 20:59 Woody Bradley MD Nov 13, 2019 10:20
--- NOTE | 2019-11-13 13:39 | Surgery Progress Note ---
Surgery Progress Note Subjective Additional Comments cxr worsening labs improved exam stable tolerating feeds Objective Last 24 Hour Vital Signs Date Time Temp Pulse Resp B/P (MAP) Pulse Ox O2 Delivery O2 Flow Rate FiO2 11/13/19 12:00 98.0 88 20 128/79 (95) 96 11/13/19 12:00 Nasal Cannula 4.0 11/13/19 12:00 86 11/13/19 12:00 4.0 11/13/19 08:00 5.0 11/13/19 08:00 74 11/13/19 08:00 99.0 90 20 131/84 (100) 98 11/13/19 08:00 Nasal Cannula 5.0 11/13/19 04:00 99.2 90 20 134/76 (95) 94 11/13/19 04:00 5.0 11/13/19 04:00 Nasal Cannula 5.0 11/13/19 03:34 91 11/13/19 00:00 99.1 90 22 141/75 (97) 95 11/13/19 00:00 Nasal Cannula 5.0 11/13/19 00:00 5.0 11/13/19 00:00 95 11/12/19 20:00 5.0 11/12/19 20:00 Nasal Cannula 5.0 11/12/19 20:00 99.0 90 22 132/81 (98) 94 11/12/19 20:00 103 11/12/19 16:00 98.1 91 24 122/76 (91) 96 11/12/19 16:00 6.0 11/12/19 16:00 85 11/12/19 16:00 Nasal Cannula 6.0 I&O Intake and Output 11/12/19 11/13/19 19:00 07:00 Intake Total 1150 ml 400 ml Output Total 1000 ml Balance 150 ml 400 ml Intake Oral 850 ml 400 ml IV Total 300 ml Output Urine Total 1000 ml # Voids 2 Dressing: saturated Wound: clean Cardiovascular: RSR Respiratory: decreased breath sounds Abdomen: soft, non-tender, present bowel sounds Extremities: no cyanosis, other Laboratory Tests Test 11/13/19 03:45 White Blood Count 8.5 K/UL (4.8-10.8) Red Blood Count 4.62 M/UL (4.20-5.40) Hemoglobin 13.7 G/DL (12.0-16.0) Hematocrit 41.1 % (37.0-47.0) Mean Corpuscular Volume 89 FL (80-99) Mean Corpuscular Hemoglobin 29.6 PG (27.0-31.0) Mean Corpuscular Hemoglobin Concent 33.2 G/DL (32.0-36.0) Red Cell Distribution Width 12.5 % (11.6-14.8) Platelet Count 382 K/UL (150-450) Mean Platelet Volume 5.1 FL (6.5-10.1) L Neutrophils (%) (Auto) 61.7 % (45.0-75.0) Lymphocytes (%) (Auto) 27.8 % (20.0-45.0) Monocytes (%) (Auto) 7.6 % (1.0-10.0) Eosinophils (%) (Auto) 2.1 % (0.0-3.0) Basophils (%) (Auto) 0.7 % (0.0-2.0) D-Dimer 1.71 mg/L FEU (0.00-0.49) H Sodium Level 146 MMOL/L (136-145) H Potassium Level 3.6 MMOL/L (3.5-5.1) Chloride Level 110 MMOL/L (98-107) H Carbon Dioxide Level 29 MMOL/L (21-32) Anion Gap 7 mmol/L (5-15) Blood Urea Nitrogen 19 mg/dL (7-18) H Creatinine 0.8 MG/DL (0.55-1.30) Estimat Glomerular Filtration Rate > 60 mL/min (>60) Glucose Level 147 MG/DL (74-106) H Calcium Level 9.5 MG/DL (8.5-10.1) Ferritin 271 NG/ML (8-388) C-Reactive Protein, Quantitative 11.3 mg/dL (0.00-0.90) H Thyroid Stimulating Hormone (TSH) 0.281 uiU/mL (0.358-3.740) Plan Problems: (1) Hypoxia Assessment & Plan: supplemental O2 monitor closely (2) UTI (urinary tract infection) (3) Suspected 2019 novel coronavirus infection (4) Pneumonia due to COVID-19 virus Assessment & Plan: The heart is borderline enlarged. There are bilateral interstitial opacities diffusely. No definite focal airspace consolidation. The pleural spaces are clear. Impression: Borderline cardiomegaly. Bilateral interstitial disease. This is nonspecific, could indicate infiltrates, edema, among other possibilities on Non rebreather can desaturate may consider steroids (5) Fever (6) Anemia (7) Confusion (8) Diabetes (9) Renal failure (10) Malnutrition Assessment & Plan: DAILY ESTIMATED NEEDS: Needs based on Wound, DM/ 53kg abw 25-30 kcals/kg 7806-0011 total kcals 1.25-1.5 g protein/kg 66-79 g total protein 25-30 mL/kg 4200-9872 total fluid mLs NUTRITION DIAGNOSIS: * Increased kcal/prot intake needs R/T wound healing as evidenced by admitted w/ DTPI wound @ L ischium, non-blanching erythema at cleft of buttocks. * Altered nutrition related lab values R/T diabetes as evidenced by elev POC glu (174, 102, 151, 123, now improved), on NISS. CURRENT DIET:REGULAR PO DIET RECOMMENDATIONS: CCHO med/ texture as tolerated or per DELIVERY AGENT ADDITIONAL RECOMMENDATIONS: * Per SNF: HT=61" CT=793cmx * Wound healing: add MVI x 1, Vit C 500mg QD, SYED BID * sliding scale insulin prn * Texture downgrade for chewing deficit as per RN -> consider pureed, rec DELIVERY AGENT eval * High kcal supplement w/ meals, will start w/ Ensure Clear and monitor acceptance (250 kcal/ 8g pro each) (11) HTN (hypertension) (12) CVA (cerebral vascular accident) (13) Decubitus skin ulcer Assessment & Plan: Pt presented on admission with DTPI L ischium. Base of wound is purple, indurated. An area of hyperpigmentation noted distally but in close to wound bed. Non-blanching erythema cleft of buttocks. Hyperpigmentation from previous wound noted to R ischium. Within area of hyperpigmentation an area of non-blanchable erythema noted. No other skin concerns noted. Tx.Plan: Apply Moisture Barrier Paste to Sacrum. Cover with Optifoam drsg. Change every 3 days and prn. Apply Moisture Barrier Paste to R and L Ischium. Cover each area with Optifoam drsg. Change every 3 days and prn. Apply Cavilon Skin Barrier to both heels. Cover each heel with Optifoam drsg. Change every 7 days and prn. Reposition at least every 2hours or as tolerated. Off-load heels with Pillow. DAILY ESTIMATED NEEDS: Needs based on Wound, DM/ 53kg abw 25-30 kcals/kg 2454-7792 total kcals 1.25-1.5 g protein/kg 66-79 g total protein 25-30 mL/kg 3639-1144 total fluid mLs NUTRITION DIAGNOSIS: * Increased kcal/prot intake needs R/T wound healing as evidenced by admitted w/ DTPI wound @ L ischium, non-blanching erythema at cleft of buttocks. * Altered nutrition related lab values R/T diabetes as evidenced by elev POC glu (174, 102, 151, 123), on NISS. CURRENT DIET:REGULAR PO DIET RECOMMENDATIONS: CCHO med/ texture as tolerated or per DELIVERY AGENT ADDITIONAL RECOMMENDATIONS: * Per SNF: HT=61" QV=322ydh * Wound healing: add MVI x 1, Vit C 500mg QD add Syed BID * Texture downgrade for chewing deficit as per RN -> consider pureed * Glucerna x 1 with variable intake (220kcal/10g prot each) Humble Sewell Nov 13, 2019 13:39
[2019-11-13] MEDS: Lactulose 10gm/15ml UDC ORAL SCH ×2 (14:01→18:47)
--- NOTE | 2019-11-13 14:12 | Nephrology Progress Note ---
Assessment/Plan Problem List: (1) Renal failure (2) Electrolyte imbalance (3) Pneumonia due to COVID-19 virus (4) UTI (urinary tract infection) (5) Diabetes Assessment Renal parameters suggest dehydration and free water deficit, and also effect of Lasix use in the past Hypernatremia, Azotemia, high uric acid COVID positive pneumonia UTI Diabetes mellitus Hypertension History of CVA Allergy to [facility] Plan Continue per current treatment plan Abnormal electrolytes improving will hold 1/2 NS IV fluids, discussed with Dr. Bradley Monitor electrolytes and renal parameters Continue per consultants Per orders Subjective ROS Limited/Unobtainable: No Constitutional: Reports: malaise, weakness Objective Objective Last 24 Hour Vital Signs Date Time Temp Pulse Resp B/P (MAP) Pulse Ox O2 Delivery O2 Flow Rate FiO2 11/13/19 12:00 98.0 88 20 128/79 (95) 96 11/13/19 12:00 Nasal Cannula 4.0 11/13/19 12:00 86 11/13/19 12:00 4.0 11/13/19 08:00 5.0 11/13/19 08:00 74 11/13/19 08:00 99.0 90 20 131/84 (100) 98 11/13/19 08:00 Nasal Cannula 5.0 11/13/19 04:00 99.2 90 20 134/76 (95) 94 11/13/19 04:00 5.0 11/13/19 04:00 Nasal Cannula 5.0 11/13/19 03:34 91 11/13/19 00:00 99.1 90 22 141/75 (97) 95 11/13/19 00:00 Nasal Cannula 5.0 11/13/19 00:00 5.0 11/13/19 00:00 95 11/12/19 20:00 5.0 11/12/19 20:00 Nasal Cannula 5.0 11/12/19 20:00 99.0 90 22 132/81 (98) 94 11/12/19 20:00 103 11/12/19 16:00 98.1 91 24 122/76 (91) 96 11/12/19 16:00 6.0 11/12/19 16:00 85 11/12/19 16:00 Nasal Cannula 6.0 Intake and Output 11/12/19 11/13/19 19:00 07:00 Intake Total 1150 ml 400 ml Output Total 1000 ml Balance 150 ml 400 ml Intake Oral 850 ml 400 ml IV Total 300 ml Output Urine Total 1000 ml # Voids 2 Current Medications Medications (Trade) Dose Ordered Sig/Maryam Route PRN Reason Start Time Stop Time Status Last Admin Dose Admin Acetaminophen (Tylenol) 650 mg Q6H PRN ORAL MILD PAIN/TEMP >100.5 11/04/19 20:30 12/04/19 20:29 11/12/19 23:48 Ascorbic Acid (Vitamin C) 500 mg DAILY ORAL 11/08/19 09:00 12/08/19 08:59 11/13/19 09:01 Aspirin (Ecotrin) 81 mg DAILY ORAL 11/05/19 09:00 12/20/19 08:59 11/13/19 09:01 Dextrose (Dextrose 50%) 25 ml Q30M PRN IV Hypoglycemia 11/04/19 10:45 02/02/20 10:44 Dextrose (Dextrose 50%) 50 ml Q30M PRN IV Hypoglycemia 11/04/19 10:45 02/02/20 10:44 Docusate Sodium (Colace) 100 mg TIDPRN PRN ORAL Constipation 11/12/19 13:15 12/12/19 13:14 11/12/19 23:47 Heparin Sodium (Porcine) (Heparin 5000 units/ml) 5,000 units EVERY 12 HOURS SUBQ 11/12/19 21:00 12/27/19 20:59 11/13/19 09:02 Lactulose (Cephulac) 10 gm THREE TIMES A DAY ORAL 11/13/19 13:00 12/13/19 12:59 11/13/19 14:01 Multivitamins (Multivitamins) 1 tab DAILY ORAL 11/08/19 09:00 12/08/19 08:59 11/13/19 09:01 Polyethylene Glycol (Miralax) 17 gm BEDTIME ORAL 11/13/19 21:00 12/13/19 20:59 Laboratory Tests 11/13/19 03:45: White Blood Count 8.5, Red Blood Count 4.62, Hemoglobin 13.7, Hematocrit 41.1, Mean Corpuscular Volume 89, Mean Corpuscular Hemoglobin 29.6, Mean Corpuscular Hemoglobin Concent 33.2, Red Cell Distribution Width 12.5, Platelet Count 382, Mean Platelet Volume 5.1L, Neutrophils (%) (Auto) 61.7, Lymphocytes (%) (Auto) 27.8, Monocytes (%) (Auto) 7.6, Eosinophils (%) (Auto) 2.1, Basophils (%) (Auto ) 0.7, D-Dimer 1.71H, Sodium Level 146H, Potassium Level 3.6, Chloride Level 110H, Carbon Dioxide Level 29, Anion Gap 7, Blood Urea Nitrogen 19H, Creatinine 0.8, Estimat Glomerular Filtration Rate > 60, Glucose Level 147H, Calcium Level 9.5, Ferritin 271, C-Reactive Protein, Quantitative 11.3H, Thyroid Stimulating Hormone (TSH) 0.281L Height (Feet): 5 Height (Inches): 3.00 Weight (Pounds): 146 General Appearance: no apparent distress Cardiovascular: tachycardia Respiratory/Chest: decreased breath sounds Abdomen: soft Wisam Love MD Nov 13, 2019 14:12
[2019-11-13] MEDS: Miralax 17gm pkt ORAL SCH (21:36)
[2019-11-13] MEDS: Docusate 100mg/10ml Liq ORAL PRN (23:01)
[2019-11-14] VITALS: BP 141/89
[2019-11-14 04:00] VITALS: BP 137/96
[2019-11-14 05:53] LABS: BASOPHILS % (AUTO) 1.1 % (0.0-2.0); HEMATOCRIT 40.4 % (37.0-47.0); HEMOGLOBIN 13.4 G/DL (12.0-16.0); LYMPHOCYTES % (AUTO) 39.2 % (20.0-45.0); MEAN CORPUSCULAR VOLUME 89 FL (80-99); MONOCYTES % (AUTO) 6.5 % (1.0-10.0); NEUTROPHILS % (AUTO) 51.2 % (45.0-75.0); PLATELET COUNT 385 K/UL (150-450); RED BLOOD COUNT 4.55 M/UL (4.20-5.40); RED CELL DISTRIBUTION WIDTH 12.7 % (11.6-14.8)
[2019-11-14 06:21] LABS: ANION GAP 11 mmol/L (5-15); BLOOD UREA NITROGEN 20 mg/dL (7-18); CALCIUM 9.5 MG/DL (8.5-10.1); CARBON DIOXIDE 26 MMOL/L (21-32); CHLORIDE 111 MMOL/L (98-107); CREATININE 0.7 MG/DL (0.55-1.30); POTASSIUM 4.5 MMOL/L (3.5-5.1); SODIUM 148 MMOL/L (136-145)
[2019-11-14 07:41] VITALS: BP 122/78
--- NOTE | 2019-11-14 08:51 | General Progress Note ---
Assessment/Plan Problem List: (1) Electrolyte imbalance ICD Codes: E87.8 - Other disorders of electrolyte and fluid balance, not elsewhere classified SNOMED: 038131260 (2) Decubitus skin ulcer ICD Codes: L89.90 - Pressure ulcer of unspecified site, unspecified stage SNOMED: 343281736 (3) HTN (hypertension) ICD Codes: I10 - Essential (primary) hypertension SNOMED: 06739682 (4) CVA (cerebral vascular accident) ICD Codes: I63.9 - Cerebral infarction, unspecified SNOMED: 979845467 (5) Malnutrition ICD Codes: E46 - Unspecified protein-calorie malnutrition SNOMED: 87873420 (6) Diabetes ICD Codes: E11.9 - Type 2 diabetes mellitus without complications SNOMED: 31669592 (7) Anemia ICD Codes: D64.9 - Anemia, unspecified SNOMED: 954762982 (8) Pneumonia due to COVID-19 virus ICD Codes: U07.1 - COVID-19; J12.89 - Other viral pneumonia SNOMED: 386914584, 951189870 (9) UTI (urinary tract infection) ICD Codes: N39.0 - Urinary tract infection, site not specified SNOMED: 38588118 Status: unchanged Assessment/Plan: bowel regimen kub consider adding linzess tyroid labs>>> reviewed has had multiple BM over night will fu Subjective Allergies: Coded Allergies: SULFAMETHOXAZOLE (Verified Allergy, Unknown, 11/03/19) TRIMETHOPRIM (Verified Allergy, Unknown, 11/03/19) Objective Last 24 Hour Vital Signs Date Time Temp Pulse Resp B/P (MAP) Pulse Ox O2 Delivery O2 Flow Rate FiO2 11/14/19 08:00 4.0 11/14/19 07:41 98.0 100 22 122/78 (93) 96 11/14/19 04:00 100.2 116 24 137/96 (110) 98 11/14/19 04:00 Nasal Cannula 4.0 11/14/19 04:00 4.0 11/14/19 03:44 121 11/14/19 00:00 Nasal Cannula 4.0 11/14/19 00:00 101.2 115 24 141/89 (106) 98 11/14/19 00:00 4.0 11/13/19 23:25 107 4/29/20 22:00 102.4 124 26 140/100 (113) 98 11/13/19 20:00 4.0 11/13/19 20:00 99.5 106 20 133/96 (108) 96 11/13/19 20:00 Nasal Cannula 4.0 11/13/19 19:04 96 11/13/19 16:00 Nasal Cannula 4.0 11/13/19 16:00 4.0 11/13/19 16:00 93 11/13/19 16:00 97.8 91 20 134/78 (96) 94 11/13/19 12:00 98.0 88 20 128/79 (95) 96 11/13/19 12:00 Nasal Cannula 4.0 11/13/19 12:00 86 11/13/19 12:00 4.0 Intake and Output 11/13/19 11/14/19 19:00 07:00 Intake Total 900 ml 1800 ml Output Total 1000 ml Balance 900 ml 800 ml Intake Oral 900 ml 1800 ml Output Urine Total 1000 ml # Voids 1 # Bowel Movements 4 Laboratory Tests 11/14/19 03:39: White Blood Count 13.0#H, Red Blood Count 4.55, Hemoglobin 13.4, Hematocrit 40.4 , Mean Corpuscular Volume 89, Mean Corpuscular Hemoglobin 29.6, Mean Corpuscular Hemoglobin Concent 33.3, Red Cell Distribution Width 12.7, Platelet Count 385, Mean Platelet Volume 5.0L, Neutrophils (%) (Auto) 51.2, Lymphocytes ( %) (Auto) 39.2, Monocytes (%) (Auto) 6.5, Eosinophils (%) (Auto) 2.0, Basophils (%) (Auto) 1.1, Sodium Level 148H, Potassium Level 4.5, Chloride Level 111H, Carbon Dioxide Level 26, Anion Gap 11, Blood Urea Nitrogen 20H, Creatinine 0.7, Estimat Glomerular Filtration Rate > 60, Glucose Level 91, Calcium Level 9.5, Ferritin 338, C-Reactive Protein, Quantitative 12.0H, Free Thyroxine 1.34 Height (Feet): 5 Height (Inches): 3.00 Weight (Pounds): 146 General Appearance: no apparent distress EENT: PERRL/EOMI Neck: supple Cardiovascular: normal rate Respiratory/Chest: decreased breath sounds Abdomen: normal bowel sounds, non tender, soft Extremities: non-tender Luke Noe MD Nov 14, 2019 08:51
[2019-11-14] MEDS: Aspirin EC 81mg tab ORAL SCH (09:28)
[2019-11-14] MEDS: Lactulose 10gm/15ml UDC ORAL SCH ×3 (09:28→18:10)
[2019-11-14] MEDS: Heparin 5000 units/ml inj SUBQ SCH (09:29)
[2019-11-14] MEDS: Ascorbic Acid 500mg tab ORAL SCH (09:29)
[2019-11-14 09:41] LABS: ALANINE AMINOTRANSFERASE 45 U/L (12-78); ALBUMIN 2.4 G/DL (3.4-5.0); ALKALINE PHOSPHATASE 69 U/L (46-116); ASPARTATE AMINO TRANSFERASE 64 U/L (15-37); BILIRUBIN,DIRECT < 0.1 MG/DL (0.0-0.3); BILIRUBIN,TOTAL 0.4 MG/DL (0.2-1.0)
--- NOTE | 2019-11-14 10:04 | Diagnostic Imaging Report ---
Indication: Shortness of breath Technique: One view of the chest Comparison: 11/12/2019 Findings: Bilateral diffuse infiltrates are unchanged. The heart size is normal. Impression: Unchanged, over 2 days, findings as above.
--- NOTE | 2019-11-14 10:07 | Diagnostic Imaging Report ---
Indication: Reason For Exam: ABD PAIN Technique: Supine view of the abdomen Comparison: none Findings: Calcifications to the right of midline probably represent multiple moderate to large renal collecting system calculi including a staghorn calculus overlying the renal pelvis. The bowel gas pattern is unremarkable. There is mild to moderate retained stool within the colon. The hips appear to be contracted. Impression: Possible mild constipation. No acute process otherwise Multiple moderate to large right renal calculi including a large staghorn calculus
--- NOTE | 2019-11-14 11:10 | General Progress Note ---
Assessment/Plan Problem List: (1) Malnutrition ICD Codes: E46 - Unspecified protein-calorie malnutrition SNOMED: 67372274 (2) Anemia ICD Codes: D64.9 - Anemia, unspecified SNOMED: 541589498 (3) Fever ICD Codes: R50.9 - Fever, unspecified SNOMED: 496436733 (4) CVA (cerebral vascular accident) ICD Codes: I63.9 - Cerebral infarction, unspecified SNOMED: 802450956 (5) HTN (hypertension) ICD Codes: I10 - Essential (primary) hypertension SNOMED: 23438569 (6) Diabetes ICD Codes: E11.9 - Type 2 diabetes mellitus without complications SNOMED: 33227856 (7) Renal failure ICD Codes: N19 - Unspecified kidney failure SNOMED: 37092076 (8) Confusion ICD Codes: R41.0 - Disorientation, unspecified SNOMED: 259985972 (9) Hypoxia ICD Codes: R09.02 - Hypoxemia SNOMED: 997434377 (10) Suspected 2019 novel coronavirus infection ICD Codes: R68.89 - Other general symptoms and signs SNOMED: 090716271 (11) UTI (urinary tract infection) ICD Codes: N39.0 - Urinary tract infection, site not specified SNOMED: 37505836 Status: unchanged Assessment/Plan: o2 pulm tx abx bp bs control cbc bmp am Subjective Constitutional: Reports: weakness Allergies: Coded Allergies: SULFAMETHOXAZOLE (Verified Allergy, Unknown, 11/03/19) TRIMETHOPRIM (Verified Allergy, Unknown, 11/03/19) All Systems: reviewed and negative except above Subjective o2 nc calm in bed Objective Last 24 Hour Vital Signs Date Time Temp Pulse Resp B/P (MAP) Pulse Ox O2 Delivery O2 Flow Rate FiO2 11/14/19 08:00 100 11/14/19 08:00 Nasal Cannula 4.0 11/14/19 08:00 4.0 11/14/19 07:41 98.0 100 22 122/78 (93) 96 11/14/19 04:00 100.2 116 24 137/96 (110) 98 11/14/19 04:00 Nasal Cannula 4.0 11/14/19 04:00 4.0 11/14/19 03:44 121 11/14/19 00:00 Nasal Cannula 4.0 11/14/19 00:00 101.2 115 24 141/89 (106) 98 11/14/19 00:00 4.0 11/13/19 23:25 107 11/13/19 22:00 102.4 124 26 140/100 (113) 98 11/13/19 20:00 4.0 11/13/19 20:00 99.5 106 20 133/96 (108) 96 11/13/19 20:00 Nasal Cannula 4.0 11/13/19 19:04 96 11/13/19 16:00 Nasal Cannula 4.0 11/13/19 16:00 4.0 11/13/19 16:00 93 11/13/19 16:00 97.8 91 20 134/78 (96) 94 11/13/19 12:00 98.0 88 20 128/79 (95) 96 11/13/19 12:00 Nasal Cannula 4.0 11/13/19 12:00 86 11/13/19 12:00 4.0 Intake and Output 11/13/19 11/14/19 19:00 07:00 Intake Total 900 ml 1800 ml Output Total 1000 ml Balance 900 ml 800 ml Intake Oral 900 ml 1800 ml Output Urine Total 1000 ml # Voids 1 # Bowel Movements 4 Laboratory Tests 11/14/19 03:39: White Blood Count 13.0#H, Red Blood Count 4.55, Hemoglobin 13.4, Hematocrit 40.4 , Mean Corpuscular Volume 89, Mean Corpuscular Hemoglobin 29.6, Mean Corpuscular Hemoglobin Concent 33.3, Red Cell Distribution Width 12.7, Platelet Count 385, Mean Platelet Volume 5.0L, Neutrophils (%) (Auto) 51.2, Lymphocytes ( %) (Auto) 39.2, Monocytes (%) (Auto) 6.5, Eosinophils (%) (Auto) 2.0, Basophils (%) (Auto) 1.1, Sodium Level 148H, Potassium Level 4.5, Chloride Level 111H, Carbon Dioxide Level 26, Anion Gap 11, Blood Urea Nitrogen 20H, Creatinine 0.7, Estimat Glomerular Filtration Rate > 60, Glucose Level 91, Calcium Level 9.5, Ferritin 338, C-Reactive Protein, Quantitative 12.0H, Free Thyroxine 1.34 11/14/19 03:47: Phosphorus Level 5.0H, Total Bilirubin 0.4, Direct Bilirubin < 0.1, Aspartate Amino Transf (AST/SGOT) 64H, Alanine Aminotransferase (ALT/SGPT) 45, Alkaline Phosphatase 69, Total Protein 8.4H, Albumin 2.4L Height (Feet): 5 Height (Inches): 3.00 Weight (Pounds): 146 General Appearance: lethargic EENT: normal ENT inspection Neck: normal alignment Cardiovascular: normal rate, regular rhythm Respiratory/Chest: no respiratory distress, no accessory muscle use Extremities: normal inspection Skin: normal pigmentation Trevor Cabrera DO Nov 14, 2019 11:10
[2019-11-14 12:00] VITALS: BP 128/71
--- NOTE | 2019-11-14 12:07 | Pulmonology Progress Note ---
Assessment/Plan Assessment/Plan IMPRESSION: 1. UTI. 2. Hypoxemia. 3. Hypertension. 4. Diabetes mellitus. 5. Previous CVA. 6. Cognitive impairment. 7. [facility] resident. 8. Bactrim allergy. 9. COVID 19 positive DISCUSSION: CXR no change, in fact looks worse Continue oxygen and pulmonary hygiene. 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 SaO2 95% on 4L/min Will transfer to [facility] Lasix today Woody Bradley M.D. Subjective ROS Limited/Unobtainable: No Interval Events: On 6L/min O2; none new Constitutional: Reports: no symptoms HEENT: Repors: no symptoms Respiratory: Reports: no symptoms Cardiovascular: Reports: no symptoms Gastrointestinal/Abdominal: Reports: no symptoms Allergies: Coded Allergies: SULFAMETHOXAZOLE (Verified Allergy, Unknown, 11/03/19) TRIMETHOPRIM (Verified Allergy, Unknown, 11/03/19) All Systems: reviewed and negative except above Objective Last 24 Hour Vital Signs Date Time Temp Pulse Resp B/P (MAP) Pulse Ox O2 Delivery O2 Flow Rate FiO2 11/14/19 08:00 100 11/14/19 08:00 Nasal Cannula 4.0 11/14/19 08:00 4.0 11/14/19 07:41 98.0 100 22 122/78 (93) 96 11/14/19 04:00 100.2 116 24 137/96 (110) 98 11/14/19 04:00 Nasal Cannula 4.0 11/14/19 04:00 4.0 11/14/19 03:44 121 11/14/19 00:00 Nasal Cannula 4.0 11/14/19 00:00 101.2 115 24 141/89 (106) 98 11/14/19 00:00 4.0 11/13/19 23:25 107 11/13/19 22:00 102.4 124 26 140/100 (113) 98 11/13/19 20:00 4.0 11/13/19 20:00 99.5 106 20 133/96 (108) 96 11/13/19 20:00 Nasal Cannula 4.0 11/13/19 19:04 96 11/13/19 16:00 Nasal Cannula 4.0 11/13/19 16:00 4.0 11/13/19 16:00 93 11/13/19 16:00 97.8 91 20 134/78 (96) 94 Intake and Output 11/13/19 11/14/19 19:00 07:00 Intake Total 900 ml 1800 ml Output Total 1000 ml Balance 900 ml 800 ml Intake Oral 900 ml 1800 ml Output Urine Total 1000 ml # Voids 1 # Bowel Movements 4 General Appearance: no acute distress HEENT: mucous membranes moist Respiratory/Chest: chest wall non-tender, decreased breath sounds Cardiovascular: normal peripheral pulses Abdomen: normal bowel sounds Extremities: no cyanosis Neurologic/Psychiatric: alert, responsive Microbiology Date/Time Source Procedure Growth Status 11/11/19 18:00 Urine,Clean Catch Urine Culture - Final Enterococcus Faecalis Complete Laboratory Tests 11/14/19 03:39: White Blood Count 13.0#H, Red Blood Count 4.55, Hemoglobin 13.4, Hematocrit 40.4 , Mean Corpuscular Volume 89, Mean Corpuscular Hemoglobin 29.6, Mean Corpuscular Hemoglobin Concent 33.3, Red Cell Distribution Width 12.7, Platelet Count 385, Mean Platelet Volume 5.0L, Neutrophils (%) (Auto) 51.2, Lymphocytes ( %) (Auto) 39.2, Monocytes (%) (Auto) 6.5, Eosinophils (%) (Auto) 2.0, Basophils (%) (Auto) 1.1, Sodium Level 148H, Potassium Level 4.5, Chloride Level 111H, Carbon Dioxide Level 26, Anion Gap 11, Blood Urea Nitrogen 20H, Creatinine 0.7, Estimat Glomerular Filtration Rate > 60, Glucose Level 91, Calcium Level 9.5, Ferritin 338, C-Reactive Protein, Quantitative 12.0H, Free Thyroxine 1.34 11/14/19 03:47: Phosphorus Level 5.0H, Total Bilirubin 0.4, Direct Bilirubin < 0.1, Aspartate Amino Transf (AST/SGOT) 64H, Alanine Aminotransferase (ALT/SGPT) 45, Alkaline Phosphatase 69, Total Protein 8.4H, Albumin 2.4L Current Medications Medications (Trade) Dose Ordered Sig/Maryam Route PRN Reason Start Time Stop Time Status Last Admin Dose Admin Acetaminophen (Tylenol) 650 mg Q6H PRN ORAL MILD PAIN/TEMP >100.5 11/04/19 20:30 12/04/19 20:29 11/12/19 23:48 Ascorbic Acid (Vitamin C) 500 mg DAILY ORAL 11/08/19 09:00 12/08/19 08:59 11/14/19 09:29 Aspirin (Ecotrin) 81 mg DAILY ORAL 11/05/19 09:00 12/20/19 08:59 11/14/19 09:28 Dextrose (Dextrose 50%) 25 ml Q30M PRN IV Hypoglycemia 11/04/19 10:45 02/02/20 10:44 Dextrose (Dextrose 50%) 50 ml Q30M PRN IV Hypoglycemia 11/04/19 10:45 02/02/20 10:44 Docusate Sodium (Colace) 100 mg TIDPRN PRN ORAL Constipation 11/12/19 13:15 12/12/19 13:14 11/13/19 23:01 Heparin Sodium (Porcine) (Heparin 5000 units/ml) 5,000 units EVERY 12 HOURS SUBQ 11/12/19 21:00 12/27/19 20:59 11/14/19 09:29 Lactulose (Cephulac) 10 gm THREE TIMES A DAY ORAL 11/13/19 13:00 12/13/19 12:59 11/14/19 09:28 Multivitamins (Multivitamins) 1 tab DAILY ORAL 11/08/19 09:00 12/08/19 08:59 11/14/19 09:28 Polyethylene Glycol (Miralax) 17 gm BEDTIME ORAL 11/13/19 21:00 12/13/19 20:59 11/13/19 21:36 Woody Bradley MD Nov 14, 2019 12:07
--- NOTE | 2019-11-14 12:12 | Nephrology Progress Note ---
Assessment/Plan Problem List: (1) Renal failure (2) Electrolyte imbalance (3) Pneumonia due to COVID-19 virus (4) UTI (urinary tract infection) (5) Diabetes Assessment Renal parameters suggest dehydration and free water deficit, and also effect of Lasix use in the past Hypernatremia, Azotemia, high uric acid COVID positive pneumonia UTI Diabetes mellitus Hypertension History of CVA Allergy to Bactrim senior living resident Plan Continue per current treatment plan Abnormal electrolytes improving 500 cc of D5W bolus for slightly high serum sodium Monitor electrolytes and renal parameters Continue per consultants Per orders Subjective ROS Limited/Unobtainable: No Constitutional: Reports: malaise, weakness Objective Objective Last 24 Hour Vital Signs Date Time Temp Pulse Resp B/P (MAP) Pulse Ox O2 Delivery O2 Flow Rate FiO2 11/14/19 12:00 4.0 11/14/19 12:00 Nasal Cannula 4.0 11/14/19 08:00 100 11/14/19 08:00 Nasal Cannula 4.0 11/14/19 08:00 4.0 11/14/19 07:41 98.0 100 22 122/78 (93) 96 11/14/19 04:00 100.2 116 24 137/96 (110) 98 11/14/19 04:00 Nasal Cannula 4.0 11/14/19 04:00 4.0 11/14/19 03:44 121 11/14/19 00:00 Nasal Cannula 4.0 11/14/19 00:00 101.2 115 24 141/89 (106) 98 11/14/19 00:00 4.0 11/13/19 23:25 107 11/13/19 22:00 102.4 124 26 140/100 (113) 98 11/13/19 20:00 4.0 11/13/19 20:00 99.5 106 20 133/96 (108) 96 11/13/19 20:00 Nasal Cannula 4.0 11/13/19 19:04 96 11/13/19 16:00 Nasal Cannula 4.0 11/13/19 16:00 4.0 11/13/19 16:00 93 11/13/19 16:00 97.8 91 20 134/78 (96) 94 Intake and Output 11/13/19 11/14/19 19:00 07:00 Intake Total 900 ml 1800 ml Output Total 1000 ml Balance 900 ml 800 ml Intake Oral 900 ml 1800 ml Output Urine Total 1000 ml # Voids 1 # Bowel Movements 4 Current Medications Medications (Trade) Dose Ordered Sig/Maryam Route PRN Reason Start Time Stop Time Status Last Admin Dose Admin Acetaminophen (Tylenol) 650 mg Q6H PRN ORAL MILD PAIN/TEMP >100.5 11/04/19 20:30 12/04/19 20:29 11/12/19 23:48 Ascorbic Acid (Vitamin C) 500 mg DAILY ORAL 11/08/19 09:00 12/08/19 08:59 11/14/19 09:29 Aspirin (Ecotrin) 81 mg DAILY ORAL 11/05/19 09:00 12/20/19 08:59 11/14/19 09:28 Dextrose 500 ml @ 500 mls/hr ONCE ONCE IV 11/14/19 12:15 11/14/19 13:14 UNV Dextrose (Dextrose 50%) 25 ml Q30M PRN IV Hypoglycemia 11/04/19 10:45 02/02/20 10:44 Dextrose (Dextrose 50%) 50 ml Q30M PRN IV Hypoglycemia 11/04/19 10:45 02/02/20 10:44 Docusate Sodium (Colace) 100 mg TIDPRN PRN ORAL Constipation 11/12/19 13:15 12/12/19 13:14 11/13/19 23:01 Furosemide (Lasix) 40 mg ONCE ONCE IV 11/14/19 12:00 11/14/19 12:01 UNV Heparin Sodium (Porcine) (Heparin 5000 units/ml) 5,000 units EVERY 12 HOURS SUBQ 11/12/19 21:00 12/27/19 20:59 11/14/19 09:29 Lactulose (Cephulac) 10 gm THREE TIMES A DAY ORAL 11/13/19 13:00 12/13/19 12:59 11/14/19 09:28 Multivitamins (Multivitamins) 1 tab DAILY ORAL 11/08/19 09:00 12/08/19 08:59 11/14/19 09:28 Polyethylene Glycol (Miralax) 17 gm BEDTIME ORAL 11/13/19 21:00 12/13/19 20:59 11/13/19 21:36 Laboratory Tests 11/14/19 03:39: White Blood Count 13.0#H, Red Blood Count 4.55, Hemoglobin 13.4, Hematocrit 40.4 , Mean Corpuscular Volume 89, Mean Corpuscular Hemoglobin 29.6, Mean Corpuscular Hemoglobin Concent 33.3, Red Cell Distribution Width 12.7, Platelet Count 385, Mean Platelet Volume 5.0L, Neutrophils (%) (Auto) 51.2, Lymphocytes ( %) (Auto) 39.2, Monocytes (%) (Auto) 6.5, Eosinophils (%) (Auto) 2.0, Basophils (%) (Auto) 1.1, Sodium Level 148H, Potassium Level 4.5, Chloride Level 111H, Carbon Dioxide Level 26, Anion Gap 11, Blood Urea Nitrogen 20H, Creatinine 0.7, Estimat Glomerular Filtration Rate > 60, Glucose Level 91, Calcium Level 9.5, Ferritin 338, C-Reactive Protein, Quantitative 12.0H, Free Thyroxine 1.34 11/14/19 03:47: Phosphorus Level 5.0H, Total Bilirubin 0.4, Direct Bilirubin < 0.1, Aspartate Amino Transf (AST/SGOT) 64H, Alanine Aminotransferase (ALT/SGPT) 45, Alkaline Phosphatase 69, Total Protein 8.4H, Albumin 2.4L Height (Feet): 5 Height (Inches): 3.00 Weight (Pounds): 146 General Appearance: no apparent distress Cardiovascular: tachycardia Respiratory/Chest: decreased breath sounds Abdomen: distended Wisam Love MD Nov 14, 2019 12:12
--- NOTE | 2019-11-14 12:55 | Infectious Diseases Prog Note ---
Assessment/Plan Assessment/Plan Assessment: Sepsis Fever, SP Acute hypoxic respiratory failure- s/p simple mask, now on NRB Pnuemonia- 2ry to COVID19 -11/13 CXR: Unchanged, over 2 days, findings as above. -11/08 CXR: Interval worsening bilateral airspace opacities, worse in the right lung. -11/05 CXR: Slight worsening of bilateral right greater than left interstitial and airspace opacities, over 3 days. Most likely pneumonia but pulmonary edema also a possibility -11/02 CXR: Borderline cardiomegaly. Bilateral interstitial disease. This is nonspecific, could indicate infiltrates, edema, among other possibilities SARS-COV2 PCR + -Influenza sc neg -Bcx NTD -Ferritin 338 (11/13)<568 (11/08)<- 841 (11/06) -CRP 12 (11/13)< 7.9(11/10)<-11.2 (11/08) <- 7.1 (11/06) Mild leukocytosis UTI -11/10 u/a wbc olivia, nit neg, leuk +3; ucx 10-20k VRE (S amp) -u/a wbc tnct, nit neg, leuk +3; ucx >100k E.coli (hernandes S), >100k P.mirabilis ( R. Ceftriaxone, bactrim) Elevated LFTs, improving Dm2 HTN CVA [facility] Plan: - Start empiric Zosyn and ZYvox -Will not start Plaquenil as not recommended by IDSA and NIH guidelines -Will consider steroids if worsening -11/11 SP Cefepime #8 -11/07 SP Azithromycin #5 -11/03 SP Ceftriaxone #2 -f/u cx -Monitor CBC/CMP, temperaturse -Monitor inflammatory markers, CXR -f/u T spot -sp cx, Bcx x2 Thank you for consulting [facility]. Will continue to follow along wiht you. Subjective Allergies: Coded Allergies: SULFAMETHOXAZOLE (Verified Allergy, Unknown, 11/03/19) TRIMETHOPRIM (Verified Allergy, Unknown, 11/03/19) Subjective Tm102.4 on 4l NC mild leukocytosis Objective Vital Signs Last 24 Hour Vital Signs Date Time Temp Pulse Resp B/P (MAP) Pulse Ox O2 Delivery O2 Flow Rate FiO2 11/14/19 12:00 4.0 11/14/19 12:00 Nasal Cannula 4.0 11/14/19 08:00 100 11/14/19 08:00 Nasal Cannula 4.0 11/14/19 08:00 4.0 11/14/19 07:41 98.0 100 22 122/78 (93) 96 11/14/19 04:00 100.2 116 24 137/96 (110) 98 11/14/19 04:00 Nasal Cannula 4.0 11/14/19 04:00 4.0 11/14/19 03:44 121 11/14/19 00:00 Nasal Cannula 4.0 11/14/19 00:00 101.2 115 24 141/89 (106) 98 11/14/19 00:00 4.0 11/13/19 23:25 107 11/13/19 22:00 102.4 124 26 140/100 (113) 98 11/13/19 20:00 4.0 11/13/19 20:00 99.5 106 20 133/96 (108) 96 11/13/19 20:00 Nasal Cannula 4.0 11/13/19 19:04 96 11/13/19 16:00 Nasal Cannula 4.0 11/13/19 16:00 4.0 11/13/19 16:00 93 11/13/19 16:00 97.8 91 20 134/78 (96) 94 Height (Feet): 5 Height (Inches): 3.00 Weight (Pounds): 146 Objective not examined to limit covid exposure Microbiology Date/Time Source Procedure Growth Status 11/11/19 18:00 Urine,Clean Catch Urine Culture - Final Enterococcus Faecalis Complete Laboratory Tests Test 11/14/19 03:39 11/14/19 03:47 White Blood Count 13.0 K/UL (4.8-10.8) #H Red Blood Count 4.55 M/UL (4.20-5.40) Hemoglobin 13.4 G/DL (12.0-16.0) Hematocrit 40.4 % (37.0-47.0) Mean Corpuscular Volume 89 FL (80-99) Mean Corpuscular Hemoglobin 29.6 PG (27.0-31.0) Mean Corpuscular Hemoglobin Concent 33.3 G/DL (32.0-36.0) Red Cell Distribution Width 12.7 % (11.6-14.8) Platelet Count 385 K/UL (150-450) Mean Platelet Volume 5.0 FL (6.5-10.1) L Neutrophils (%) (Auto) 51.2 % (45.0-75.0) Lymphocytes (%) (Auto) 39.2 % (20.0-45.0) Monocytes (%) (Auto) 6.5 % (1.0-10.0) Eosinophils (%) (Auto) 2.0 % (0.0-3.0) Basophils (%) (Auto) 1.1 % (0.0-2.0) Sodium Level 148 MMOL/L (136-145) H Potassium Level 4.5 MMOL/L (3.5-5.1) Chloride Level 111 MMOL/L (98-107) H Carbon Dioxide Level 26 MMOL/L (21-32) Anion Gap 11 mmol/L (5-15) Blood Urea Nitrogen 20 mg/dL (7-18) H Creatinine 0.7 MG/DL (0.55-1.30) Estimat Glomerular Filtration Rate > 60 mL/min (>60) Glucose Level 91 MG/DL (74-106) Calcium Level 9.5 MG/DL (8.5-10.1) Ferritin 338 NG/ML (8-388) C-Reactive Protein, Quantitative 12.0 mg/dL (0.00-0.90) H Free Thyroxine 1.34 NG/DL (0.76-1.46) Phosphorus Level 5.0 MG/DL (2.5-4.9) H Total Bilirubin 0.4 MG/DL (0.2-1.0) Direct Bilirubin < 0.1 MG/DL (0.0-0.3) Aspartate Amino Transf (AST/SGOT) 64 U/L (15-37) H Alanine Aminotransferase (ALT/SGPT) 45 U/L (12-78) Alkaline Phosphatase 69 U/L (46-116) Total Protein 8.4 G/DL (6.4-8.2) H Albumin 2.4 G/DL (3.4-5.0) L Current Medications Medications (Trade) Dose Ordered Sig/Maryam Route PRN Reason Start Time Stop Time Status Last Admin Dose Admin Acetaminophen (Tylenol) 650 mg Q6H PRN ORAL MILD PAIN/TEMP >100.5 11/04/19 20:30 12/04/19 20:29 11/12/19 23:48 Ascorbic Acid (Vitamin C) 500 mg DAILY ORAL 11/08/19 09:00 12/08/19 08:59 11/14/19 09:29 Aspirin (Ecotrin) 81 mg DAILY ORAL 11/05/19 09:00 12/20/19 08:59 11/14/19 09:28 Dextrose 500 ml @ 500 mls/hr ONCE IV 11/14/19 12:15 11/14/19 13:15 Dextrose (Dextrose 50%) 25 ml Q30M PRN IV Hypoglycemia 11/04/19 10:45 02/02/20 10:44 Dextrose (Dextrose 50%) 50 ml Q30M PRN IV Hypoglycemia 11/04/19 10:45 02/02/20 10:44 Docusate Sodium (Colace) 100 mg TIDPRN PRN ORAL Constipation 11/12/19 13:15 12/12/19 13:14 11/13/19 23:01 Furosemide (Lasix) 40 mg ONCE IV 11/14/19 12:15 11/14/19 13:15 Heparin Sodium (Porcine) (Heparin 5000 units/ml) 5,000 units EVERY 12 HOURS SUBQ 11/12/19 21:00 12/27/19 20:59 11/14/19 09:29 Lactulose (Cephulac) 10 gm THREE TIMES A DAY ORAL 11/13/19 13:00 12/13/19 12:59 11/14/19 09:28 Multivitamins (Multivitamins) 1 tab DAILY ORAL 11/08/19 09:00 12/08/19 08:59 11/14/19 09:28 Polyethylene Glycol (Miralax) 17 gm BEDTIME ORAL 11/13/19 21:00 12/13/19 20:59 11/13/19 21:36 Jenna Briseno M.D. Nov 14, 2019 12:55
[2019-11-14] MEDS: Piperacillin/Tazobactam 3.375 GM in NS 110 ML IVPB SCH ×2 (15:11→21:55)
[2019-11-14 15:12] VITALS: BP 110/75
--- NOTE | 2019-11-14 16:19 | Surgery Progress Note ---
Surgery Progress Note Subjective Additional Comments wbc 13k comfortable pending lab draw cxr and kub noted Objective Last 24 Hour Vital Signs Date Time Temp Pulse Resp B/P (MAP) Pulse Ox O2 Delivery O2 Flow Rate FiO2 11/14/19 16:00 4.0 11/14/19 16:00 Nasal Cannula 4.0 11/14/19 15:12 98.2 82 20 110/75 (87) 95 11/14/19 12:00 4.0 11/14/19 12:00 113 11/14/19 12:00 Nasal Cannula 4.0 11/14/19 12:00 98.1 88 22 128/71 (90) 96 11/14/19 08:00 100 11/14/19 08:00 Nasal Cannula 4.0 11/14/19 08:00 4.0 11/14/19 07:41 98.0 100 22 122/78 (93) 96 11/14/19 04:00 100.2 116 24 137/96 (110) 98 11/14/19 04:00 Nasal Cannula 4.0 11/14/19 04:00 4.0 11/14/19 03:44 121 11/14/19 00:00 Nasal Cannula 4.0 11/14/19 00:00 101.2 115 24 141/89 (106) 98 11/14/19 00:00 4.0 11/13/19 23:25 107 11/13/19 22:00 102.4 124 26 140/100 (113) 98 11/13/19 20:00 4.0 11/13/19 20:00 99.5 106 20 133/96 (108) 96 11/13/19 20:00 Nasal Cannula 4.0 11/13/19 19:04 96 I&O Intake and Output 11/13/19 11/14/19 19:00 07:00 Intake Total 900 ml 1800 ml Output Total 1000 ml Balance 900 ml 800 ml Intake Oral 900 ml 1800 ml Output Urine Total 1000 ml # Voids 1 # Bowel Movements 4 Dressing: other Wound: other Drains: other Cardiovascular: RSR Respiratory: decreased breath sounds Abdomen: soft, non-tender, present bowel sounds Extremities: no cyanosis, other Laboratory Tests Test 11/14/19 03:39 11/14/19 03:47 White Blood Count 13.0 K/UL (4.8-10.8) #H Red Blood Count 4.55 M/UL (4.20-5.40) Hemoglobin 13.4 G/DL (12.0-16.0) Hematocrit 40.4 % (37.0-47.0) Mean Corpuscular Volume 89 FL (80-99) Mean Corpuscular Hemoglobin 29.6 PG (27.0-31.0) Mean Corpuscular Hemoglobin Concent 33.3 G/DL (32.0-36.0) Red Cell Distribution Width 12.7 % (11.6-14.8) Platelet Count 385 K/UL (150-450) Mean Platelet Volume 5.0 FL (6.5-10.1) L Neutrophils (%) (Auto) 51.2 % (45.0-75.0) Lymphocytes (%) (Auto) 39.2 % (20.0-45.0) Monocytes (%) (Auto) 6.5 % (1.0-10.0) Eosinophils (%) (Auto) 2.0 % (0.0-3.0) Basophils (%) (Auto) 1.1 % (0.0-2.0) Sodium Level 148 MMOL/L (136-145) H Potassium Level 4.5 MMOL/L (3.5-5.1) Chloride Level 111 MMOL/L (98-107) H Carbon Dioxide Level 26 MMOL/L (21-32) Anion Gap 11 mmol/L (5-15) Blood Urea Nitrogen 20 mg/dL (7-18) H Creatinine 0.7 MG/DL (0.55-1.30) Estimat Glomerular Filtration Rate > 60 mL/min (>60) Glucose Level 91 MG/DL (74-106) Calcium Level 9.5 MG/DL (8.5-10.1) Ferritin 338 NG/ML (8-388) C-Reactive Protein, Quantitative 12.0 mg/dL (0.00-0.90) H Free Thyroxine 1.34 NG/DL (0.76-1.46) Phosphorus Level 5.0 MG/DL (2.5-4.9) H Total Bilirubin 0.4 MG/DL (0.2-1.0) Direct Bilirubin < 0.1 MG/DL (0.0-0.3) Aspartate Amino Transf (AST/SGOT) 64 U/L (15-37) H Alanine Aminotransferase (ALT/SGPT) 45 U/L (12-78) Alkaline Phosphatase 69 U/L (46-116) Total Protein 8.4 G/DL (6.4-8.2) H Albumin 2.4 G/DL (3.4-5.0) L Plan Problems: (1) Hypoxia Assessment & Plan: supplemental O2 monitor closely (2) UTI (urinary tract infection) (3) Suspected 2019 novel coronavirus infection (4) Pneumonia due to COVID-19 virus Assessment & Plan: The heart is borderline enlarged. There are bilateral interstitial opacities diffusely. No definite focal airspace consolidation. The pleural spaces are clear. Impression: Borderline cardiomegaly. Bilateral interstitial disease. This is nonspecific, could indicate infiltrates, edema, among other possibilities on Non rebreather can desaturate may consider steroids (5) Fever (6) Anemia (7) Confusion (8) Diabetes (9) Renal failure (10) Malnutrition Assessment & Plan: DAILY ESTIMATED NEEDS: Needs based on Wound, DM/ 53kg abw 25-30 kcals/kg 9308-4781 total kcals 1.25-1.5 g protein/kg 66-79 g total protein 25-30 mL/kg 4649-1870 total fluid mLs NUTRITION DIAGNOSIS: * Increased kcal/prot intake needs R/T wound healing as evidenced by admitted w/ DTPI wound @ L ischium, non-blanching erythema at cleft of buttocks. * Altered nutrition related lab values R/T diabetes as evidenced by elev POC glu (174, 102, 151, 123, now improved), on NISS. CURRENT DIET:REGULAR PO DIET RECOMMENDATIONS: CCHO med/ texture as tolerated or per PROGRAM SUPPORT ASSISTANT ADDITIONAL RECOMMENDATIONS: * Per SNF: HT=61" VK=353qrk * Wound healing: add MVI x 1, Vit C 500mg QD, SYED BID * sliding scale insulin prn * Texture downgrade for chewing deficit as per RN -> consider pureed, rec PROGRAM SUPPORT ASSISTANT eval * High kcal supplement w/ meals, will start w/ Ensure Clear and monitor acceptance (250 kcal/ 8g pro each) (11) HTN (hypertension) (12) CVA (cerebral vascular accident) (13) Decubitus skin ulcer Assessment & Plan: Pt presented on admission with DTPI L ischium. Base of wound is purple, indurated. An area of hyperpigmentation noted distally but in close to wound bed. Non-blanching erythema cleft of buttocks. Hyperpigmentation from previous wound noted to R ischium. Within area of hyperpigmentation an area of non-blanchable erythema noted. No other skin concerns noted. Tx.Plan: Apply Moisture Barrier Paste to Sacrum. Cover with Optifoam drsg. Change every 3 days and prn. Apply Moisture Barrier Paste to R and L Ischium. Cover each area with Optifoam drsg. Change every 3 days and prn. Apply Cavilon Skin Barrier to both heels. Cover each heel with Optifoam drsg. Change every 7 days and prn. Reposition at least every 2hours or as tolerated. Off-load heels with Pillow. DAILY ESTIMATED NEEDS: Needs based on Wound, DM/ 53kg abw 25-30 kcals/kg 8214-2201 total kcals 1.25-1.5 g protein/kg 66-79 g total protein 25-30 mL/kg 8137-1024 total fluid mLs NUTRITION DIAGNOSIS: * Increased kcal/prot intake needs R/T wound healing as evidenced by admitted w/ DTPI wound @ L ischium, non-blanching erythema at cleft of buttocks. * Altered nutrition related lab values R/T diabetes as evidenced by elev POC glu (174, 102, 151, 123), on NISS. CURRENT DIET:REGULAR PO DIET RECOMMENDATIONS: CCHO med/ texture as tolerated or per PROGRAM SUPPORT ASSISTANT ADDITIONAL RECOMMENDATIONS: * Per SNF: HT=61" MS=870aox * Wound healing: add MVI x 1, Vit C 500mg QD add Syed BID * Texture downgrade for chewing deficit as per RN -> consider pureed * Glucerna x 1 with variable intake (220kcal/10g prot each) Humble Sewell Nov 14, 2019 16:19
[2019-11-14 20:00] VITALS: BP 118/54
[2019-11-14] MEDS: Miralax 17gm pkt ORAL SCH (21:54)
[2019-11-15] VITALS: BP 127/65
[2019-11-15 04:00] VITALS: BP 132/61
[2019-11-15 05:31] LABS: BASOPHILS % (AUTO) 0.7 % (0.0-2.0); EOSINOPHILS % (AUTO) 1.5 % (0.0-3.0); HEMATOCRIT 40.6 % (37.0-47.0); HEMOGLOBIN 13.6 G/DL (12.0-16.0); LYMPHOCYTES % (AUTO) 12.2 % (20.0-45.0); MEAN CORPUSCULAR VOLUME 88 FL (80-99); MONOCYTES % (AUTO) 5.4 % (1.0-10.0); NEUTROPHILS % (AUTO) 80.1 % (45.0-75.0); PLATELET COUNT 419 K/UL (150-450); WHITE BLOOD COUNT 11.5 K/UL (4.8-10.8)
[2019-11-15] MEDS: Piperacillin/Tazobactam 3.375 GM in NS 110 ML IVPB SCH ×3 (06:07→21:55)
[2019-11-15 06:12] LABS: ANION GAP 11 mmol/L (5-15); BLOOD UREA NITROGEN 18 mg/dL (7-18); CALCIUM 9.4 MG/DL (8.5-10.1); CARBON DIOXIDE 29 MMOL/L (21-32); CHLORIDE 110 MMOL/L (98-107); POTASSIUM 3.7 MMOL/L (3.5-5.1); SODIUM 150 MMOL/L (136-145)
[2019-11-15 08:00] VITALS: BP 134/74
[2019-11-15] MEDS: Aspirin EC 81mg tab ORAL SCH (08:29)
[2019-11-15] MEDS: Lactulose 10gm/15ml UDC ORAL SCH ×3 (08:29→17:27)
[2019-11-15] MEDS: Ascorbic Acid 500mg tab ORAL SCH (08:30)
[2019-11-15] MEDS: Heparin 5000 units/ml inj SUBQ SCH ×2 (08:32→21:34)
--- NOTE | 2019-11-15 08:33 | General Progress Note ---
Assessment/Plan Problem List: (1) Electrolyte imbalance ICD Codes: E87.8 - Other disorders of electrolyte and fluid balance, not elsewhere classified SNOMED: 682707387 (2) Decubitus skin ulcer ICD Codes: L89.90 - Pressure ulcer of unspecified site, unspecified stage SNOMED: 950388593 (3) HTN (hypertension) ICD Codes: I10 - Essential (primary) hypertension SNOMED: 02191580 (4) CVA (cerebral vascular accident) ICD Codes: I63.9 - Cerebral infarction, unspecified SNOMED: 515969728 (5) Malnutrition ICD Codes: E46 - Unspecified protein-calorie malnutrition SNOMED: 76883616 (6) Diabetes ICD Codes: E11.9 - Type 2 diabetes mellitus without complications SNOMED: 48387742 (7) Anemia ICD Codes: D64.9 - Anemia, unspecified SNOMED: 259666431 (8) Pneumonia due to COVID-19 virus ICD Codes: U07.1 - COVID-19; J12.89 - Other viral pneumonia SNOMED: 727161499, 627107419 (9) UTI (urinary tract infection) ICD Codes: N39.0 - Urinary tract infection, site not specified SNOMED: 24425807 Status: unchanged Assessment/Plan: bowel regimen tyroid labs>>> reviewed has had multiple BM will fu Subjective ROS Limited/Unobtainable: No Allergies: Coded Allergies: SULFAMETHOXAZOLE (Verified Allergy, Unknown, 11/03/19) TRIMETHOPRIM (Verified Allergy, Unknown, 11/03/19) Objective Last 24 Hour Vital Signs Date Time Temp Pulse Resp B/P (MAP) Pulse Ox O2 Delivery O2 Flow Rate FiO2 11/15/19 04:00 98.6 120 20 132/61 (84) 98 11/15/19 03:50 2.0 11/15/19 03:50 Nasal Cannula 2.0 11/15/19 00:00 2.0 11/15/19 00:00 Nasal Cannula 2.0 11/15/19 00:00 99.5 107 24 127/65 (85) 94 11/14/19 20:00 2.0 11/14/19 20:00 Nasal Cannula 2.0 11/14/19 20:00 98.5 90 24 118/54 (75) 94 11/14/19 16:00 4.0 11/14/19 16:00 Nasal Cannula 4.0 11/14/19 15:12 98.2 82 20 110/75 (87) 95 11/14/19 12:00 4.0 11/14/19 12:00 113 11/14/19 12:00 Nasal Cannula 4.0 11/14/19 12:00 98.1 88 22 128/71 (90) 96 Intake and Output 11/14/19 11/15/19 19:00 07:00 Intake Total 1510.0 ml 110.00 ml Output Total 600 ml 400 ml Balance 910.0 ml -290.00 ml Intake Oral 900 ml IV Total 610.0 ml 110.00 ml Output Urine Total 600 ml 400 ml # Voids 1 1 Laboratory Tests 11/15/19 04:40: White Blood Count 11.5H, Red Blood Count 4.60, Hemoglobin 13.6, Hematocrit 40.6 , Mean Corpuscular Volume 88, Mean Corpuscular Hemoglobin 29.5, Mean Corpuscular Hemoglobin Concent 33.4, Red Cell Distribution Width 13.0, Platelet Count 419, Mean Platelet Volume 5.3L, Neutrophils (%) (Auto) 80.1H, Lymphocytes (%) (Auto) 12.2L, Monocytes (%) (Auto) 5.4, Eosinophils (%) (Auto) 1.5, Basophils (%) (Auto) 0.7, Sodium Level 150H, Potassium Level 3.7, Chloride Level 110H, Carbon Dioxide Level 29, Anion Gap 11, Blood Urea Nitrogen 18, Creatinine 1.0, Estimat Glomerular Filtration Rate 56.0, Glucose Level 122H, Calcium Level 9.4 Height (Feet): 5 Height (Inches): 3.00 Weight (Pounds): 146 General Appearance: no apparent distress EENT: normal ENT inspection Neck: supple Cardiovascular: normal rate Respiratory/Chest: decreased breath sounds Abdomen: normal bowel sounds, non tender, soft Extremities: non-tender Luke Noe MD November 15, 2019 08:33
--- NOTE | 2019-11-15 09:17 | General Progress Note ---
Assessment/Plan Problem List: (1) Malnutrition ICD Codes: E46 - Unspecified protein-calorie malnutrition SNOMED: 31504149 (2) Anemia ICD Codes: D64.9 - Anemia, unspecified SNOMED: 962455311 (3) Fever ICD Codes: R50.9 - Fever, unspecified SNOMED: 060598036 (4) CVA (cerebral vascular accident) ICD Codes: I63.9 - Cerebral infarction, unspecified SNOMED: 082992082 (5) HTN (hypertension) ICD Codes: I10 - Essential (primary) hypertension SNOMED: 64046051 (6) Diabetes ICD Codes: E11.9 - Type 2 diabetes mellitus without complications SNOMED: 11779510 (7) Renal failure ICD Codes: N19 - Unspecified kidney failure SNOMED: 22605088 (8) Confusion ICD Codes: R41.0 - Disorientation, unspecified SNOMED: 776970603 (9) Hypoxia ICD Codes: R09.02 - Hypoxemia SNOMED: 987112822 (10) Suspected 2019 novel coronavirus infection ICD Codes: R68.89 - Other general symptoms and signs SNOMED: 144770646 (11) UTI (urinary tract infection) ICD Codes: N39.0 - Urinary tract infection, site not specified SNOMED: 13114581 Status: unchanged Assessment/Plan: o2 pulm tx abx bp bs control cbc bmp am Subjective Constitutional: Reports: weakness Allergies: Coded Allergies: SULFAMETHOXAZOLE (Verified Allergy, Unknown, 11/03/19) TRIMETHOPRIM (Verified Allergy, Unknown, 11/03/19) All Systems: reviewed and negative except above Subjective o2 nc calm in bed Objective Last 24 Hour Vital Signs Date Time Temp Pulse Resp B/P (MAP) Pulse Ox O2 Delivery O2 Flow Rate FiO2 11/15/19 08:00 98.4 108 18 134/74 (94) 93 11/15/19 04:00 98.6 120 20 132/61 (84) 98 11/15/19 03:50 2.0 11/15/19 03:50 Nasal Cannula 2.0 11/15/19 00:00 2.0 11/15/19 00:00 Nasal Cannula 2.0 11/15/19 00:00 99.5 107 24 127/65 (85) 94 11/14/19 20:00 2.0 11/14/19 20:00 Nasal Cannula 2.0 11/14/19 20:00 98.5 90 24 118/54 (75) 94 11/14/19 16:00 4.0 11/14/19 16:00 Nasal Cannula 4.0 11/14/19 15:12 98.2 82 20 110/75 (87) 95 11/14/19 12:00 4.0 11/14/19 12:00 113 11/14/19 12:00 Nasal Cannula 4.0 11/14/19 12:00 98.1 88 22 128/71 (90) 96 Intake and Output 11/14/19 11/15/19 19:00 07:00 Intake Total 1510.0 ml 110.00 ml Output Total 600 ml 400 ml Balance 910.0 ml -290.00 ml Intake Oral 900 ml IV Total 610.0 ml 110.00 ml Output Urine Total 600 ml 400 ml # Voids 1 1 Laboratory Tests 11/15/19 04:40: White Blood Count 11.5H, Red Blood Count 4.60, Hemoglobin 13.6, Hematocrit 40.6 , Mean Corpuscular Volume 88, Mean Corpuscular Hemoglobin 29.5, Mean Corpuscular Hemoglobin Concent 33.4, Red Cell Distribution Width 13.0, Platelet Count 419, Mean Platelet Volume 5.3L, Neutrophils (%) (Auto) 80.1H, Lymphocytes (%) (Auto) 12.2L, Monocytes (%) (Auto) 5.4, Eosinophils (%) (Auto) 1.5, Basophils (%) (Auto) 0.7, Sodium Level 150H, Potassium Level 3.7, Chloride Level 110H, Carbon Dioxide Level 29, Anion Gap 11, Blood Urea Nitrogen 18, Creatinine 1.0, Estimat Glomerular Filtration Rate 56.0, Glucose Level 122H, Calcium Level 9.4 Height (Feet): 5 Height (Inches): 3.00 Weight (Pounds): 146 General Appearance: lethargic EENT: PERRL/EOMI Neck: normal alignment Cardiovascular: normal rate, regular rhythm Respiratory/Chest: no respiratory distress, no accessory muscle use Extremities: normal inspection Skin: normal pigmentation Trevor Cabrerag November 15, 2019 09:17
--- NOTE | 2019-11-15 11:28 | Pulmonology Progress Note ---
Assessment/Plan Assessment/Plan IMPRESSION: 1. UTI. 2. Hypoxemia. 3. Hypertension. 4. Diabetes mellitus. 5. Previous CVA. 6. Cognitive impairment. 7. [facility] resident. 8. Bactrim allergy. 9. COVID 19 positive DISCUSSION: CXR no change, in fact looks worse Continue oxygen and pulmonary hygiene. I will follow as pediatric neuropsychologist. SaO2 95% on 4L/min Will transfer to [facility] today Woody Bradley M.D. Subjective ROS Limited/Unobtainable: No Interval Events: On 6L/min O2; none new Constitutional: Reports: no symptoms HEENT: Repors: no symptoms Respiratory: Reports: no symptoms Cardiovascular: Reports: no symptoms Gastrointestinal/Abdominal: Reports: no symptoms Allergies: Coded Allergies: SULFAMETHOXAZOLE (Verified Allergy, Unknown, 11/03/19) TRIMETHOPRIM (Verified Allergy, Unknown, 11/03/19) All Systems: reviewed and negative except above Objective Last 24 Hour Vital Signs Date Time Temp Pulse Resp B/P (MAP) Pulse Ox O2 Delivery O2 Flow Rate FiO2 11/15/19 09:00 Nasal Cannula 2.0 11/15/19 08:00 2.0 11/15/19 08:00 98.4 108 18 134/74 (94) 93 11/15/19 04:00 98.6 120 20 132/61 (84) 98 11/15/19 03:50 2.0 11/15/19 03:50 Nasal Cannula 2.0 11/15/19 00:00 2.0 11/15/19 00:00 Nasal Cannula 2.0 11/15/19 00:00 99.5 107 24 127/65 (85) 94 11/14/19 20:00 2.0 11/14/19 20:00 Nasal Cannula 2.0 11/14/19 20:00 98.5 90 24 118/54 (75) 94 11/14/19 16:00 4.0 11/14/19 16:00 Nasal Cannula 4.0 11/14/19 15:12 98.2 82 20 110/75 (87) 95 11/14/19 12:00 4.0 4/30/20 12:00 113 11/14/19 12:00 Nasal Cannula 4.0 11/14/19 12:00 98.1 88 22 128/71 (90) 96 Intake and Output 11/14/19 11/15/19 19:00 07:00 Intake Total 1510.0 ml 110.00 ml Output Total 600 ml 400 ml Balance 910.0 ml -290.00 ml Intake Oral 900 ml IV Total 610.0 ml 110.00 ml Output Urine Total 600 ml 400 ml # Voids 1 1 General Appearance: no acute distress HEENT: mucous membranes moist Respiratory/Chest: chest wall non-tender, decreased breath sounds Cardiovascular: normal peripheral pulses Abdomen: normal bowel sounds Extremities: no cyanosis Neurologic/Psychiatric: alert, responsive Laboratory Tests 11/15/19 04:40: White Blood Count 11.5H, Red Blood Count 4.60, Hemoglobin 13.6, Hematocrit 40.6 , Mean Corpuscular Volume 88, Mean Corpuscular Hemoglobin 29.5, Mean Corpuscular Hemoglobin Concent 33.4, Red Cell Distribution Width 13.0, Platelet Count 419, Mean Platelet Volume 5.3L, Neutrophils (%) (Auto) 80.1H, Lymphocytes (%) (Auto) 12.2L, Monocytes (%) (Auto) 5.4, Eosinophils (%) (Auto) 1.5, Basophils (%) (Auto) 0.7, Sodium Level 150H, Potassium Level 3.7, Chloride Level 110H, Carbon Dioxide Level 29, Anion Gap 11, Blood Urea Nitrogen 18, Creatinine 1.0, Estimat Glomerular Filtration Rate 56.0, Glucose Level 122H, Calcium Level 9.4 Current Medications Medications (Trade) Dose Ordered Sig/Maryam Route PRN Reason Start Time Stop Time Status Last Admin Dose Admin Acetaminophen (Tylenol) 650 mg Q6H PRN ORAL MILD PAIN/TEMP >100.5 11/15/19 02:30 12/04/19 20:29 Ascorbic Acid (Vitamin C) 500 mg DAILY ORAL 11/15/19 09:00 12/08/19 08:59 11/15/19 08:30 Aspirin (Ecotrin) 81 mg DAILY ORAL 11/15/19 09:00 12/20/19 08:59 11/15/19 08:29 Dextrose (Dextrose 50%) 25 ml Q30M PRN IV Hypoglycemia 4/30/20 23:15 02/02/20 10:44 Dextrose (Dextrose 50%) 50 ml Q30M PRN IV Hypoglycemia 11/14/19 23:15 02/02/20 10:44 Docusate Sodium (Colace) 100 mg TIDPRN PRN ORAL Constipation 11/15/19 13:15 12/12/19 13:14 Heparin Sodium (Porcine) (Heparin 5000 units/ml) 5,000 units EVERY 12 HOURS SUBQ 11/15/19 09:00 12/27/19 20:59 11/15/19 08:32 Lactulose (Cephulac) 10 gm THREE TIMES A DAY ORAL 11/15/19 09:00 12/13/19 12:59 11/15/19 08:29 Linezolid (Zyvox) 600 mg EVERY 12 HOURS ORAL 11/15/19 09:00 11/19/19 13:29 11/15/19 08:29 Multivitamins (Multivitamins) 1 tab DAILY ORAL 11/15/19 09:00 12/08/19 08:59 11/15/19 08:28 Piperacillin Sod/ Tazobactam Sod 3.375 gm/Sodium Chloride 110 ml @ 27.5 mls/hr EVERY 8 HOURS IVPB 11/15/19 06:00 11/20/19 05:59 11/15/19 06:07 Polyethylene Glycol (Miralax) 17 gm BEDTIME ORAL 11/15/19 21:00 12/13/19 20:59 Woody Bradley MD November 15, 2019 11:28
[2019-11-15 12:00] VITALS: BP 131/86
--- NOTE | 2019-11-15 12:56 | Nephrology Progress Note ---
Assessment/Plan Problem List: (1) Renal failure (2) Electrolyte imbalance (3) Pneumonia due to COVID-19 virus (4) UTI (urinary tract infection) (5) Diabetes Assessment Renal parameters suggest dehydration and free water deficit, and also effect of Lasix use in the past Hypernatremia, Azotemia, high uric acid COVID positive pneumonia UTI Diabetes mellitus Hypertension History of CVA Allergy to Bactrim senior living resident Plan Continue per current treatment plan Abnormal electrolytes improving 500 cc of D5W bolus for slightly high serum sodium Monitor electrolytes and renal parameters Continue per consultants Per orders Subjective ROS Limited/Unobtainable: No Objective Objective Last 24 Hour Vital Signs Date Time Temp Pulse Resp B/P (MAP) Pulse Ox O2 Delivery O2 Flow Rate FiO2 11/15/19 12:00 2.0 11/15/19 09:00 Nasal Cannula 2.0 11/15/19 08:00 2.0 11/15/19 08:00 98.4 108 18 134/74 (94) 93 11/15/19 04:00 98.6 120 20 132/61 (84) 98 11/15/19 03:50 2.0 11/15/19 03:50 Nasal Cannula 2.0 11/15/19 00:00 2.0 11/15/19 00:00 Nasal Cannula 2.0 11/15/19 00:00 99.5 107 24 127/65 (85) 94 11/14/19 20:00 2.0 11/14/19 20:00 Nasal Cannula 2.0 11/14/19 20:00 98.5 90 24 118/54 (75) 94 11/14/19 16:00 4.0 11/14/19 16:00 Nasal Cannula 4.0 11/14/19 15:12 98.2 82 20 110/75 (87) 95 Intake and Output 11/14/19 11/15/19 19:00 07:00 Intake Total 1510.0 ml 110.00 ml Output Total 600 ml 400 ml Balance 910.0 ml -290.00 ml Intake Oral 900 ml IV Total 610.0 ml 110.00 ml Output Urine Total 600 ml 400 ml # Voids 1 1 Laboratory Tests 11/15/19 04:40: White Blood Count 11.5H, Red Blood Count 4.60, Hemoglobin 13.6, Hematocrit 40.6 , Mean Corpuscular Volume 88, Mean Corpuscular Hemoglobin 29.5, Mean Corpuscular Hemoglobin Concent 33.4, Red Cell Distribution Width 13.0, Platelet Count 419, Mean Platelet Volume 5.3L, Neutrophils (%) (Auto) 80.1H, Lymphocytes (%) (Auto) 12.2L, Monocytes (%) (Auto) 5.4, Eosinophils (%) (Auto) 1.5, Basophils (%) (Auto) 0.7, Sodium Level 150H, Potassium Level 3.7, Chloride Level 110H, Carbon Dioxide Level 29, Anion Gap 11, Blood Urea Nitrogen 18, Creatinine 1.0, Estimat Glomerular Filtration Rate 56.0, Glucose Level 122H, Calcium Level 9.4 Height (Feet): 5 Height (Inches): 3.00 Weight (Pounds): 146 General Appearance: no apparent distress Cardiovascular: tachycardia Respiratory/Chest: decreased breath sounds Abdomen: soft Wisam Love MD November 15, 2019 12:56
[2019-11-15] MEDS ORDERED: Docusate 100mg/10ml Liq ORAL PRN (13:15)
[2019-11-15 16:00] VITALS: BP 138/92
[2019-11-15] MEDS ORDERED: NS 275ml ONE ×2 (17:14→17:19)
[2019-11-15] MEDS ORDERED: Tubing IV Secondary IV ONE ×2 (17:14→17:19)
[2019-11-15] MEDS ORDERED: 1/2 NS 1000ml IV ONE (17:19)
[2019-11-15 19:54] VITALS: BP 125/77
[2019-11-15] MEDS ORDERED: Miralax 17gm pkt ORAL SCH (21:00)
[2019-11-16] VITALS: BP 134/79
[2019-11-16 03:48] VITALS: BP 113/73
[2019-11-16] MEDS: Piperacillin/Tazobactam 3.375 GM in NS 110 ML IVPB SCH ×3 (06:01→22:19)
--- NOTE | 2019-11-16 06:44 | General Progress Note ---
Assessment/Plan Problem List: (1) Electrolyte imbalance ICD Codes: E87.8 - Other disorders of electrolyte and fluid balance, not elsewhere classified SNOMED: 357485054 (2) Decubitus skin ulcer ICD Codes: L89.90 - Pressure ulcer of unspecified site, unspecified stage SNOMED: 359286594 (3) HTN (hypertension) ICD Codes: I10 - Essential (primary) hypertension SNOMED: 68656930 (4) CVA (cerebral vascular accident) ICD Codes: I63.9 - Cerebral infarction, unspecified SNOMED: 283233269 (5) Malnutrition ICD Codes: E46 - Unspecified protein-calorie malnutrition SNOMED: 45072489 (6) Diabetes ICD Codes: E11.9 - Type 2 diabetes mellitus without complications SNOMED: 91402459 (7) Anemia ICD Codes: D64.9 - Anemia, unspecified SNOMED: 616299817 (8) Pneumonia due to COVID-19 virus ICD Codes: U07.1 - COVID-19; J12.89 - Other viral pneumonia SNOMED: 494357694, 450634000 (9) UTI (urinary tract infection) ICD Codes: N39.0 - Urinary tract infection, site not specified SNOMED: 22249235 Status: unchanged Assessment/Plan: bowel regimen tyroid labs>>> reviewed has had multiple BM will fu Subjective ROS Limited/Unobtainable: No Allergies: Coded Allergies: SULFAMETHOXAZOLE (Verified Allergy, Unknown, 11/03/19) TRIMETHOPRIM (Verified Allergy, Unknown, 11/03/19) Objective Last 24 Hour Vital Signs Date Time Temp Pulse Resp B/P (MAP) Pulse Ox O2 Delivery O2 Flow Rate FiO2 11/16/19 04:00 2.0 11/16/19 03:48 98.6 102 19 113/73 (86) 96 11/16/19 00:00 98.0 100 22 134/79 (97) 94 11/15/19 21:00 Nasal Cannula 2.0 11/15/19 20:00 2.0 11/15/19 19:54 98.2 104 19 125/77 (93) 96 11/15/19 16:00 2.0 11/15/19 16:00 97.9 100 20 138/92 (107) 94 11/15/19 16:00 2.0 5/1/20 12:00 2.0 11/15/19 12:00 97.9 100 18 131/86 (101) 94 11/15/19 09:00 Nasal Cannula 2.0 11/15/19 08:00 2.0 11/15/19 08:00 98.4 108 18 134/74 (94) 93 Intake and Output 11/15/19 11/16/19 19:00 07:00 Intake Total 992.5 ml 57.49214 ml Output Total 600 ml Balance 392.5 ml 57.01520 ml Intake Oral 300 ml IV Total 692.5 ml 57.62842 ml Output Urine Total 600 ml # Voids 2 1 # Bowel Movements 3 Laboratory Tests 11/15/19 18:00: Stool Occult Blood Negative Height (Feet): 5 Height (Inches): 3.00 Weight (Pounds): 146 General Appearance: no apparent distress EENT: normal ENT inspection Neck: supple Cardiovascular: normal rate Respiratory/Chest: decreased breath sounds Abdomen: normal bowel sounds, non tender, soft Extremities: non-tender Luke Noe MD November 16, 2019 06:44
[2019-11-16 08:00] VITALS: BP 109/83
[2019-11-16 08:16] LABS: ANION GAP 6 mmol/L (5-15); BLOOD UREA NITROGEN 17 mg/dL (7-18); CALCIUM 8.8 MG/DL (8.5-10.1); CARBON DIOXIDE 30 MMOL/L (21-32); CHLORIDE 108 MMOL/L (98-107); POTASSIUM 3.8 MMOL/L (3.5-5.1); SODIUM 144 MMOL/L (136-145)
[2019-11-16] MEDS: Aspirin EC 81mg tab ORAL SCH (08:19)
[2019-11-16] MEDS: Ascorbic Acid 500mg tab ORAL SCH (08:19)
[2019-11-16] MEDS: Lactulose 10gm/15ml UDC ORAL SCH ×3 (08:19→17:19)
[2019-11-16 08:20] LABS: BASOPHILS % (AUTO) 0.3 % (0.0-2.0); EOSINOPHILS % (AUTO) 2.1 % (0.0-3.0); HEMATOCRIT 37.8 % (37.0-47.0); HEMOGLOBIN 12.6 G/DL (12.0-16.0); LYMPHOCYTES % (AUTO) 11.7 % (20.0-45.0); MEAN CORPUSCULAR VOLUME 88 FL (80-99); MONOCYTES % (AUTO) 6.3 % (1.0-10.0); NEUTROPHILS % (AUTO) 79.6 % (45.0-75.0); PLATELET COUNT 353 K/UL (150-450); RED BLOOD COUNT 4.28 M/UL (4.20-5.40); RED CELL DISTRIBUTION WIDTH 13.4 % (11.6-14.8); WHITE BLOOD COUNT 10.5 K/UL (4.8-10.8)
[2019-11-16] MEDS: Heparin 5000 units/ml inj SUBQ SCH ×2 (08:20→21:04)
--- NOTE | 2019-11-16 08:27 | Pulmonology Progress Note ---
Assessment/Plan Assessment/Plan IMPRESSION: 1. UTI. 2. Hypoxemia. Improving 3. Hypertension. 4. Diabetes mellitus. 5. Previous CVA. 6. Cognitive impairment. 7. skilled nursing resident. 8. Bactrim allergy. 9. COVID 19 positive DISCUSSION: Continue oxygen and pulmonary hygiene. I will follow as credit advisor. SaO2 95% on 2L/min Contine med surg Check CXR and labs AM Woody Bradley M.D. Subjective ROS Limited/Unobtainable: No Interval Events: Now on 2L/min O2; none new Constitutional: Reports: no symptoms HEENT: Repors: no symptoms Respiratory: Reports: no symptoms Cardiovascular: Reports: no symptoms Gastrointestinal/Abdominal: Reports: no symptoms Allergies: Coded Allergies: SULFAMETHOXAZOLE (Verified Allergy, Unknown, 11/03/19) TRIMETHOPRIM (Verified Allergy, Unknown, 11/03/19) All Systems: reviewed and negative except above Objective Last 24 Hour Vital Signs Date Time Temp Pulse Resp B/P (MAP) Pulse Ox O2 Delivery O2 Flow Rate FiO2 11/16/19 04:00 2.0 11/16/19 03:48 98.6 102 19 113/73 (86) 96 11/16/19 00:00 98.0 100 22 134/79 (97) 94 11/15/19 21:00 Nasal Cannula 2.0 11/15/19 20:00 2.0 11/15/19 19:54 98.2 104 19 125/77 (93) 96 11/15/19 16:00 2.0 11/15/19 16:00 97.9 100 20 138/92 (107) 94 11/15/19 16:00 2.0 11/15/19 12:00 2.0 11/15/19 12:00 97.9 100 18 131/86 (101) 94 11/15/19 09:00 Nasal Cannula 2.0 Intake and Output 11/15/19 11/16/19 19:00 07:00 Intake Total 992.5 ml 110.96986 ml Output Total 600 ml Balance 392.5 ml 110.43742 ml Intake Oral 300 ml IV Total 692.5 ml 110.77538 ml Output Urine Total 600 ml # Voids 2 1 # Bowel Movements 3 General Appearance: no acute distress HEENT: mucous membranes moist Respiratory/Chest: chest wall non-tender, decreased breath sounds Cardiovascular: normal peripheral pulses Abdomen: normal bowel sounds Extremities: no cyanosis Neurologic/Psychiatric: alert, responsive Microbiology Date/Time Source Procedure Growth Status 11/14/19 15:25 Blood Blood Culture - Preliminary NO GROWTH AFTER 24 HOURS Resulted 11/14/19 15:15 Blood Blood Culture - Preliminary NO GROWTH AFTER 24 HOURS Resulted Laboratory Tests 11/15/19 18:00: Stool Occult Blood Negative 11/16/19 07:40: White Blood Count [Pending], Red Blood Count [Pending], Hemoglobin [Pending], Hematocrit [Pending], Mean Corpuscular Volume [Pending], Mean Corpuscular Hemoglobin [Pending], Mean Corpuscular Hemoglobin Concent [Pending], Red Cell Distribution Width [Pending], Platelet Count [Pending], Mean Platelet Volume [ Pending], Neutrophils (%) (Auto) [Pending], Lymphocytes (%) (Auto) [Pending], Monocytes (%) (Auto) [Pending], Eosinophils (%) (Auto) [Pending], Basophils (%) (Auto) [Pending], Sodium Level 144, Potassium Level 3.8, Chloride Level 108H, Carbon Dioxide Level 30, Anion Gap 6, Blood Urea Nitrogen 17, Creatinine 1.0, Estimat Glomerular Filtration Rate 56.0, Glucose Level 114H, Calcium Level 8.8 Current Medications Medications (Trade) Dose Ordered Sig/Maryam Route PRN Reason Start Time Stop Time Status Last Admin Dose Admin Acetaminophen (Tylenol) 650 mg Q6H PRN ORAL MILD PAIN/TEMP >100.5 11/15/19 02:30 12/04/19 20:29 Ascorbic Acid (Vitamin C) 500 mg DAILY ORAL 11/15/19 09:00 12/08/19 08:59 11/16/19 08:19 Aspirin (Ecotrin) 81 mg DAILY ORAL 11/15/19 09:00 12/20/19 08:59 11/16/19 08:19 Dextrose (Dextrose 50%) 25 ml Q30M PRN IV Hypoglycemia 11/14/19 23:15 02/02/20 10:44 Dextrose (Dextrose 50%) 50 ml Q30M PRN IV Hypoglycemia 11/14/19 23:15 02/02/20 10:44 Docusate Sodium (Colace) 100 mg TIDPRN PRN ORAL Constipation 11/15/19 13:15 12/12/19 13:14 Heparin Sodium (Porcine) (Heparin 5000 units/ml) 5,000 units EVERY 12 HOURS SUBQ 11/15/19 09:00 12/27/19 20:59 11/16/19 08:20 Lactulose (Cephulac) 10 gm THREE TIMES A DAY ORAL 11/15/19 09:00 12/13/19 12:59 11/16/19 08:19 Linezolid (Zyvox) 600 mg EVERY 12 HOURS ORAL 11/15/19 09:00 11/19/19 13:29 11/16/19 08:19 Multivitamins (Multivitamins) 1 tab DAILY ORAL 11/15/19 09:00 12/08/19 08:59 11/16/19 08:19 Piperacillin Sod/ Tazobactam Sod 3.375 gm/Sodium Chloride 110 ml @ 27.5 mls/hr EVERY 8 HOURS IVPB 11/15/19 06:00 11/20/19 05:59 11/16/19 06:01 Polyethylene Glycol (Miralax) 17 gm BEDTIME ORAL 11/15/19 21:00 12/13/19 20:59 11/15/19 21:30 Woody Bradley MD November 16, 2019 08:27
--- NOTE | 2019-11-16 09:13 | General Progress Note ---
Assessment/Plan Problem List: (1) Malnutrition ICD Codes: E46 - Unspecified protein-calorie malnutrition SNOMED: 62259332 (2) Anemia ICD Codes: D64.9 - Anemia, unspecified SNOMED: 249290450 (3) Fever ICD Codes: R50.9 - Fever, unspecified SNOMED: 202639875 (4) CVA (cerebral vascular accident) ICD Codes: I63.9 - Cerebral infarction, unspecified SNOMED: 981481650 (5) HTN (hypertension) ICD Codes: I10 - Essential (primary) hypertension SNOMED: 71129711 (6) Diabetes ICD Codes: E11.9 - Type 2 diabetes mellitus without complications SNOMED: 45229751 (7) Renal failure ICD Codes: N19 - Unspecified kidney failure SNOMED: 41381374 (8) Confusion ICD Codes: R41.0 - Disorientation, unspecified SNOMED: 141550473 (9) Hypoxia ICD Codes: R09.02 - Hypoxemia SNOMED: 353334957 (10) Suspected 2019 novel coronavirus infection ICD Codes: R68.89 - Other general symptoms and signs SNOMED: 199656353 (11) UTI (urinary tract infection) ICD Codes: N39.0 - Urinary tract infection, site not specified SNOMED: 69939259 Status: unchanged Assessment/Plan: o2 pulm tx abx bp bs control cbc bmp am Subjective Constitutional: Reports: weakness Allergies: Coded Allergies: SULFAMETHOXAZOLE (Verified Allergy, Unknown, 11/03/19) TRIMETHOPRIM (Verified Allergy, Unknown, 11/03/19) All Systems: reviewed and negative except above Subjective o2 nc calm in bed Objective Last 24 Hour Vital Signs Date Time Temp Pulse Resp B/P (MAP) Pulse Ox O2 Delivery O2 Flow Rate FiO2 11/16/19 08:00 97.9 91 21 109/83 (92) 94 11/16/19 04:00 2.0 11/16/19 03:48 98.6 102 19 113/73 (86) 96 11/16/19 00:00 98.0 100 22 134/79 (97) 94 11/15/19 21:00 Nasal Cannula 2.0 11/15/19 20:00 2.0 11/15/19 19:54 98.2 104 19 125/77 (93) 96 11/15/19 16:00 2.0 11/15/19 16:00 97.9 100 20 138/92 (107) 94 11/15/19 16:00 2.0 11/15/19 12:00 2.0 11/15/19 12:00 97.9 100 18 131/86 (101) 94 Intake and Output 11/15/19 11/16/19 19:00 07:00 Intake Total 992.5 ml 110.96940 ml Output Total 600 ml Balance 392.5 ml 110.89632 ml Intake Oral 300 ml IV Total 692.5 ml 110.64578 ml Output Urine Total 600 ml # Voids 2 1 # Bowel Movements 3 Laboratory Tests 11/15/19 18:00: Stool Occult Blood Negative 11/16/19 07:40: White Blood Count 10.5, Red Blood Count 4.28, Hemoglobin 12.6, Hematocrit 37.8, Mean Corpuscular Volume 88, Mean Corpuscular Hemoglobin 29.4, Mean Corpuscular Hemoglobin Concent 33.3, Red Cell Distribution Width 13.4, Platelet Count 353, Mean Platelet Volume 5.3L, Neutrophils (%) (Auto) 79.6H, Lymphocytes (%) (Auto) 11.7L, Monocytes (%) (Auto) 6.3, Eosinophils (%) (Auto) 2.1, Basophils (%) (Auto ) 0.3, Sodium Level 144, Potassium Level 3.8, Chloride Level 108H, Carbon Dioxide Level 30, Anion Gap 6, Blood Urea Nitrogen 17, Creatinine 1.0, Estimat Glomerular Filtration Rate 56.0, Glucose Level 114H, Calcium Level 8.8 Height (Feet): 5 Height (Inches): 3.00 Weight (Pounds): 146 General Appearance: lethargic EENT: normal ENT inspection Neck: normal alignment Cardiovascular: normal rate, regular rhythm Respiratory/Chest: no respiratory distress, no accessory muscle use Extremities: normal inspection Skin: normal pigmentation Trevor Cabrera DO November 16, 2019 09:13
[2019-11-16 12:00] VITALS: BP 129/75
[2019-11-16 16:00] VITALS: BP 136/88
--- NOTE | 2019-11-16 16:08 | Nephrology Progress Note ---
Assessment/Plan Problem List: (1) Renal failure (2) Electrolyte imbalance (3) Pneumonia due to COVID-19 virus (4) UTI (urinary tract infection) (5) Diabetes Assessment Renal parameters suggest dehydration and free water deficit, and also effect of Lasix use in the past Hypernatremia, Azotemia, high uric acid COVID positive pneumonia UTI Diabetes mellitus Hypertension History of CVA Allergy to Bactrim correction resident Plan Continue per current treatment plan Abnormal electrolytes improving 500 cc of D5W bolus for slightly high serum sodium Monitor electrolytes and renal parameters Continue per consultants Per orders Subjective ROS Limited/Unobtainable: No Constitutional: Reports: malaise, weakness Objective Objective Last 24 Hour Vital Signs Date Time Temp Pulse Resp B/P (MAP) Pulse Ox O2 Delivery O2 Flow Rate FiO2 11/16/19 12:00 2.0 11/16/19 12:00 98.2 86 18 129/75 (93) 95 11/16/19 09:00 Nasal Cannula 2.0 11/16/19 08:00 97.9 91 21 109/83 (92) 94 11/16/19 08:00 2.0 11/16/19 04:00 2.0 11/16/19 03:48 98.6 102 19 113/73 (86) 96 11/16/19 00:00 98.0 100 22 134/79 (97) 94 11/15/19 21:00 Nasal Cannula 2.0 11/15/19 20:00 2.0 11/15/19 19:54 98.2 104 19 125/77 (93) 96 Intake and Output 11/15/19 11/16/19 18:59 06:59 Intake Total 992.5 ml 110.35245 ml Output Total 600 ml Balance 392.5 ml 110.79545 ml Intake Oral 300 ml IV Total 692.5 ml 110.93677 ml Output Urine Total 600 ml # Voids 2 1 # Bowel Movements 3 Laboratory Tests 11/15/19 18:00: Stool Occult Blood Negative 11/16/19 07:40: White Blood Count 10.5, Red Blood Count 4.28, Hemoglobin 12.6, Hematocrit 37.8, Mean Corpuscular Volume 88, Mean Corpuscular Hemoglobin 29.4, Mean Corpuscular Hemoglobin Concent 33.3, Red Cell Distribution Width 13.4, Platelet Count 353, Mean Platelet Volume 5.3L, Neutrophils (%) (Auto) 79.6H, Lymphocytes (%) (Auto) 11.7L, Monocytes (%) (Auto) 6.3, Eosinophils (%) (Auto) 2.1, Basophils (%) (Auto ) 0.3, Sodium Level 144, Potassium Level 3.8, Chloride Level 108H, Carbon Dioxide Level 30, Anion Gap 6, Blood Urea Nitrogen 17, Creatinine 1.0, Estimat Glomerular Filtration Rate 56.0, Glucose Level 114H, Calcium Level 8.8 Height (Feet): 5 Height (Inches): 3.00 Weight (Pounds): 146 General Appearance: no apparent distress Cardiovascular: tachycardia Respiratory/Chest: decreased breath sounds Abdomen: soft Wisam Love MD November 16, 2019 16:08
[2019-11-16] MEDS ORDERED: Docusate 100mg/10ml Liq ORAL PRN (16:35)
[2019-11-16 20:00] VITALS: BP 115/74
[2019-11-16] MEDS: Miralax 17gm pkt ORAL SCH (21:03)
[2019-11-17] VITALS: BP 131/78
[2019-11-17 04:00] VITALS: BP 132/67
[2019-11-17 05:40] LABS: ANION GAP 9 mmol/L (5-15); BLOOD UREA NITROGEN 13 mg/dL (7-18); CALCIUM 8.2 MG/DL (8.5-10.1); CARBON DIOXIDE 26 MMOL/L (21-32); CHLORIDE 108 MMOL/L (98-107); POTASSIUM 3.6 MMOL/L (3.5-5.1); SODIUM 143 MMOL/L (136-145)
[2019-11-17 05:43] LABS: BASOPHILS % (AUTO) 0.4 % (0.0-2.0); EOSINOPHILS % (AUTO) 2.4 % (0.0-3.0); HEMOGLOBIN 12.4 G/DL (12.0-16.0); LYMPHOCYTES % (AUTO) 16.6 % (20.0-45.0); MEAN CORPUSCULAR VOLUME 88 FL (80-99); MONOCYTES % (AUTO) 7.5 % (1.0-10.0); PLATELET COUNT 370 K/UL (150-450); RED BLOOD COUNT 4.19 M/UL (4.20-5.40); RED CELL DISTRIBUTION WIDTH 13.1 % (11.6-14.8); WHITE BLOOD COUNT 9.2 K/UL (4.8-10.8)
[2019-11-17] MEDS: Piperacillin/Tazobactam 3.375 GM in NS 110 ML IVPB SCH ×4 (05:53→21:00)
--- NOTE | 2019-11-17 06:46 | General Progress Note ---
Assessment/Plan Problem List: (1) Electrolyte imbalance ICD Codes: E87.8 - Other disorders of electrolyte and fluid balance, not elsewhere classified SNOMED: 012032834 (2) Decubitus skin ulcer ICD Codes: L89.90 - Pressure ulcer of unspecified site, unspecified stage SNOMED: 535791253 (3) HTN (hypertension) ICD Codes: I10 - Essential (primary) hypertension SNOMED: 92187981 (4) CVA (cerebral vascular accident) ICD Codes: I63.9 - Cerebral infarction, unspecified SNOMED: 019213477 (5) Malnutrition ICD Codes: E46 - Unspecified protein-calorie malnutrition SNOMED: 29140835 (6) Diabetes ICD Codes: E11.9 - Type 2 diabetes mellitus without complications SNOMED: 41455314 (7) Anemia ICD Codes: D64.9 - Anemia, unspecified SNOMED: 188969046 (8) Pneumonia due to COVID-19 virus ICD Codes: U07.1 - COVID-19; J12.89 - Other viral pneumonia SNOMED: 983272047, 371743544 (9) UTI (urinary tract infection) ICD Codes: N39.0 - Urinary tract infection, site not specified SNOMED: 98013925 Status: unchanged Assessment/Plan: bowel regimen tyroid labs>>> reviewed has had multiple BM will fu Subjective ROS Limited/Unobtainable: No Allergies: Coded Allergies: SULFAMETHOXAZOLE (Verified Allergy, Unknown, 11/03/19) TRIMETHOPRIM (Verified Allergy, Unknown, 11/03/19) Objective Last 24 Hour Vital Signs Date Time Temp Pulse Resp B/P (MAP) Pulse Ox O2 Delivery O2 Flow Rate FiO2 11/17/19 04:00 97.9 74 20 132/67 (88) 98 11/17/19 00:00 99.0 110 20 131/78 (95) 94 110 11/16/19 21:40 Nasal Cannula 2.0 11/16/19 20:00 98.7 78 18 115/74 (88) 98 78 11/16/19 16:00 98.4 88 17 136/88 (104) 96 11/16/19 12:00 2.0 11/16/19 12:00 98.2 86 18 129/75 (93) 95 11/16/19 09:00 Nasal Cannula 2.0 11/16/19 08:00 97.9 91 21 109/83 (92) 94 11/16/19 08:00 2.0 Intake and Output 11/16/19 11/17/19 19:00 07:00 Intake Total 310.0 ml Balance 310.0 ml Intake Oral 200 ml IV Total 110.0 ml # Voids 1 # Bowel Movements 1 Laboratory Tests 11/16/19 07:40: White Blood Count 10.5, Red Blood Count 4.28, Hemoglobin 12.6, Hematocrit 37.8, Mean Corpuscular Volume 88, Mean Corpuscular Hemoglobin 29.4, Mean Corpuscular Hemoglobin Concent 33.3, Red Cell Distribution Width 13.4, Platelet Count 353, Mean Platelet Volume 5.3L, Neutrophils (%) (Auto) 79.6H, Lymphocytes (%) (Auto) 11.7L, Monocytes (%) (Auto) 6.3, Eosinophils (%) (Auto) 2.1, Basophils (%) (Auto ) 0.3, Sodium Level 144, Potassium Level 3.8, Chloride Level 108H, Carbon Dioxide Level 30, Anion Gap 6, Blood Urea Nitrogen 17, Creatinine 1.0, Estimat Glomerular Filtration Rate 56.0, Glucose Level 114H, Calcium Level 8.8 11/17/19 05:00: White Blood Count 9.2, Red Blood Count 4.19L, Hemoglobin 12.4, Hematocrit 37.0, Mean Corpuscular Volume 88, Mean Corpuscular Hemoglobin 29.6, Mean Corpuscular Hemoglobin Concent 33.5, Red Cell Distribution Width 13.1, Platelet Count 370, Mean Platelet Volume 5.1L, Neutrophils (%) (Auto) 73.0, Lymphocytes (%) (Auto) 16.6L, Monocytes (%) (Auto) 7.5, Eosinophils (%) (Auto) 2.4, Basophils (%) (Auto ) 0.4, Sodium Level 143, Potassium Level 3.6, Chloride Level 108H, Carbon Dioxide Level 26, Anion Gap 9, Blood Urea Nitrogen 13, Creatinine 1.0, Estimat Glomerular Filtration Rate 56.0, Glucose Level 97, Calcium Level 8.2L Height (Feet): 5 Height (Inches): 3.00 Weight (Pounds): 146 General Appearance: no apparent distress EENT: normal ENT inspection Neck: supple Cardiovascular: normal rate Respiratory/Chest: decreased breath sounds Abdomen: normal bowel sounds, non tender, soft Extremities: non-tender Luke Noe MD November 17, 2019 06:46
[2019-11-17 08:00] VITALS: BP 131/73
[2019-11-17] MEDS: Lactulose 10gm/15ml UDC ORAL SCH ×3 (09:00→18:00)
--- NOTE | 2019-11-17 09:31 | General Progress Note ---
Assessment/Plan Problem List: (1) Malnutrition ICD Codes: E46 - Unspecified protein-calorie malnutrition SNOMED: 44933056 (2) Anemia ICD Codes: D64.9 - Anemia, unspecified SNOMED: 093771270 (3) Fever ICD Codes: R50.9 - Fever, unspecified SNOMED: 773649829 (4) CVA (cerebral vascular accident) ICD Codes: I63.9 - Cerebral infarction, unspecified SNOMED: 437507563 (5) HTN (hypertension) ICD Codes: I10 - Essential (primary) hypertension SNOMED: 52891908 (6) Diabetes ICD Codes: E11.9 - Type 2 diabetes mellitus without complications SNOMED: 49020611 (7) Renal failure ICD Codes: N19 - Unspecified kidney failure SNOMED: 15835960 (8) Confusion ICD Codes: R41.0 - Disorientation, unspecified SNOMED: 356937216 (9) Hypoxia ICD Codes: R09.02 - Hypoxemia SNOMED: 155116380 (10) Suspected 2019 novel coronavirus infection ICD Codes: R68.89 - Other general symptoms and signs SNOMED: 004159942 (11) UTI (urinary tract infection) ICD Codes: N39.0 - Urinary tract infection, site not specified SNOMED: 93270054 Status: unchanged Assessment/Plan: o2 pulm tx abx bp bs control cbc bmp am Subjective Constitutional: Reports: weakness Allergies: Coded Allergies: SULFAMETHOXAZOLE (Verified Allergy, Unknown, 11/03/19) TRIMETHOPRIM (Verified Allergy, Unknown, 11/03/19) All Systems: reviewed and negative except above Subjective o2 nc calm in bed Objective Last 24 Hour Vital Signs Date Time Temp Pulse Resp B/P (MAP) Pulse Ox O2 Delivery O2 Flow Rate FiO2 11/17/19 08:00 98.2 102 17 131/73 (92) 93 11/17/19 04:00 97.9 74 20 132/67 (88) 98 11/17/19 00:00 99.0 110 20 131/78 (95) 94 110 11/16/19 21:40 Nasal Cannula 2.0 11/16/19 20:00 98.7 78 18 115/74 (88) 98 78 11/16/19 16:00 98.4 88 17 136/88 (104) 96 11/16/19 12:00 2.0 11/16/19 12:00 98.2 86 18 129/75 (93) 95 Intake and Output 11/16/19 11/17/19 19:00 07:00 Intake Total 310.0 ml Balance 310.0 ml Intake Oral 200 ml IV Total 110.0 ml # Voids 1 # Bowel Movements 1 Laboratory Tests 11/17/19 05:00: White Blood Count 9.2, Red Blood Count 4.19L, Hemoglobin 12.4, Hematocrit 37.0, Mean Corpuscular Volume 88, Mean Corpuscular Hemoglobin 29.6, Mean Corpuscular Hemoglobin Concent 33.5, Red Cell Distribution Width 13.1, Platelet Count 370, Mean Platelet Volume 5.1L, Neutrophils (%) (Auto) 73.0, Lymphocytes (%) (Auto) 16.6L, Monocytes (%) (Auto) 7.5, Eosinophils (%) (Auto) 2.4, Basophils (%) (Auto ) 0.4, Sodium Level 143, Potassium Level 3.6, Chloride Level 108H, Carbon Dioxide Level 26, Anion Gap 9, Blood Urea Nitrogen 13, Creatinine 1.0, Estimat Glomerular Filtration Rate 56.0, Glucose Level 97, Calcium Level 8.2L Height (Feet): 5 Height (Inches): 3.00 Weight (Pounds): 146 General Appearance: lethargic EENT: normal ENT inspection Neck: normal alignment Cardiovascular: normal rate, regular rhythm Respiratory/Chest: no respiratory distress, no accessory muscle use Extremities: normal inspection Skin: normal pigmentation Trevor Cabrera DO November 17, 2019 09:31
--- NOTE | 2019-11-17 10:01 | Diagnostic Imaging Report ---
EXAM: XR Chest, 1 View CLINICAL HISTORY: ABN CHST TECHNIQUE: Frontal view of the chest. COMPARISON: Chest x-ray 11/14/19 FINDINGS: Lungs: Diffuse bilateral airspace opacities are slightly improved. Pleural space: Unremarkable. No pneumothorax. Heart: Cardiomegaly. Mediastinum: Unremarkable. Bones/joints: Unremarkable. IMPRESSION: Diffuse bilateral airspace opacities are slightly improved.
[2019-11-17] MEDS: Heparin 5000 units/ml inj SUBQ SCH ×2 (10:43→20:56)
[2019-11-17] MEDS: Ascorbic Acid 500mg tab ORAL SCH (10:45)
[2019-11-17] MEDS: Aspirin EC 81mg tab ORAL SCH (10:46)
--- NOTE | 2019-11-17 10:57 | Nephrology Progress Note ---
Assessment/Plan Problem List: (1) Renal failure (2) Electrolyte imbalance (3) Pneumonia due to COVID-19 virus (4) UTI (urinary tract infection) (5) Diabetes Assessment Renal parameters suggest dehydration and free water deficit, and also effect of Lasix use in the past Hypernatremia, Azotemia, high uric acid COVID positive pneumonia UTI Diabetes mellitus Hypertension History of CVA Allergy to Bactrim senior living resident Plan Continue per current treatment plan Abnormal electrolytes improving 500 cc of D5W bolus for slightly high serum sodium Monitor electrolytes and renal parameters Continue per consultants Per orders Subjective ROS Limited/Unobtainable: No Constitutional: Reports: malaise Objective Objective Last 24 Hour Vital Signs Date Time Temp Pulse Resp B/P (MAP) Pulse Ox O2 Delivery O2 Flow Rate FiO2 11/17/19 08:00 98.2 102 17 131/73 (92) 93 11/17/19 04:00 97.9 74 20 132/67 (88) 98 11/17/19 00:00 99.0 110 20 131/78 (95) 94 110 11/16/19 21:40 Nasal Cannula 2.0 11/16/19 20:00 98.7 78 18 115/74 (88) 98 78 11/16/19 16:00 98.4 88 17 136/88 (104) 96 11/16/19 12:00 2.0 11/16/19 12:00 98.2 86 18 129/75 (93) 95 Intake and Output 11/16/19 11/17/19 19:00 07:00 Intake Total 310.0 ml Balance 310.0 ml Intake Oral 200 ml IV Total 110.0 ml # Voids 1 # Bowel Movements 1 Laboratory Tests 11/17/19 05:00: White Blood Count 9.2, Red Blood Count 4.19L, Hemoglobin 12.4, Hematocrit 37.0, Mean Corpuscular Volume 88, Mean Corpuscular Hemoglobin 29.6, Mean Corpuscular Hemoglobin Concent 33.5, Red Cell Distribution Width 13.1, Platelet Count 370, Mean Platelet Volume 5.1L, Neutrophils (%) (Auto) 73.0, Lymphocytes (%) (Auto) 16.6L, Monocytes (%) (Auto) 7.5, Eosinophils (%) (Auto) 2.4, Basophils (%) (Auto ) 0.4, Sodium Level 143, Potassium Level 3.6, Chloride Level 108H, Carbon Dioxide Level 26, Anion Gap 9, Blood Urea Nitrogen 13, Creatinine 1.0, Estimat Glomerular Filtration Rate 56.0, Glucose Level 97, Calcium Level 8.2L Height (Feet): 5 Height (Inches): 3.00 Weight (Pounds): 146 General Appearance: no apparent distress Cardiovascular: tachycardia Respiratory/Chest: decreased breath sounds Abdomen: soft Objective No change Wisam Love MD November 17, 2019 10:57
[2019-11-17 12:00] VITALS: BP 129/63
--- NOTE | 2019-11-17 14:44 | Infectious Diseases Prog Note ---
Assessment/Plan Assessment/Plan Assessment: Sepsis Fever, SP Acute hypoxic respiratory failure- s/p simple mask, sp NRB, now on 2l NC Pnuemonia- 2ry to COVID19 -11/16 CXR: Diffuse bilateral airspace opacities are slightly improved. -11/13 CXR: Unchanged, over 2 days, findings as above. -11/08 CXR: Interval worsening bilateral airspace opacities, worse in the right lung. -11/05 CXR: Slight worsening of bilateral right greater than left interstitial and airspace opacities, over 3 days. Most likely pneumonia but pulmonary edema also a possibility -11/02 CXR: Borderline cardiomegaly. Bilateral interstitial disease. This is nonspecific, could indicate infiltrates, edema, among other possibilities SARS-COV2 PCR + -Influenza sc neg -Bcx NTD -Ferritin 338 (11/13)<568 (11/08)<- 841 (11/06) -CRP 12 (11/13)< 7.9(11/10)<-11.2 (11/08) <- 7.1 (11/06) Mild leukocytosis, SP -11/13 Bcx NTD UTI -11/10 u/a wbc olivia, nit neg, leuk +3; ucx 10-20k VRE (S amp) -u/a wbc tnct, nit neg, leuk +3; ucx >100k E.coli (hernandes S), >100k P.mirabilis ( R. Ceftriaxone, bactrim) Elevated LFTs, improving Dm2 HTN CVA SNF resident ([facility]) Plan: - Start empiric Zosyn and ZYvox #/-7 -Will not start Plaquenil as not recommended by IDSA and NIH guidelines -Will consider steroids if worsening -11/11 SP Cefepime #8 -11/07 SP Azithromycin #5 -11/03 SP Ceftriaxone #2 -f/u cx -Monitor CBC/CMP, temperaturse -Monitor inflammatory markers, CXR -f/u T spot -f/u sp cx -CMP am Thank you for consulting [facility]. Will continue to follow along wiht you. Subjective Allergies: Coded Allergies: SULFAMETHOXAZOLE (Verified Allergy, Unknown, 11/03/19) TRIMETHOPRIM (Verified Allergy, Unknown, 4/19/20) Subjective afebrile >72hrs down to 2l NC mild leukocytosis resolved Objective Vital Signs Last 24 Hour Vital Signs Date Time Temp Pulse Resp B/P (MAP) Pulse Ox O2 Delivery O2 Flow Rate FiO2 11/17/19 09:00 Nasal Cannula 2.0 11/17/19 08:00 98.2 102 17 131/73 (92) 93 11/17/19 04:00 97.9 74 20 132/67 (88) 98 11/17/19 00:00 99.0 110 20 131/78 (95) 94 110 11/16/19 21:40 Nasal Cannula 2.0 11/16/19 20:00 98.7 78 18 115/74 (88) 98 78 11/16/19 16:00 98.4 88 17 136/88 (104) 96 Height (Feet): 5 Height (Inches): 3.00 Weight (Pounds): 146 Objective not examined to limit covid exposure Microbiology Date/Time Source Procedure Growth Status 11/14/19 15:25 Blood Blood Culture - Preliminary NO GROWTH AFTER 48 HOURS Resulted 11/14/19 15:15 Blood Blood Culture - Preliminary NO GROWTH AFTER 48 HOURS Resulted Laboratory Tests Test 11/17/19 05:00 White Blood Count 9.2 K/UL (4.8-10.8) Red Blood Count 4.19 M/UL (4.20-5.40) L Hemoglobin 12.4 G/DL (12.0-16.0) Hematocrit 37.0 % (37.0-47.0) Mean Corpuscular Volume 88 FL (80-99) Mean Corpuscular Hemoglobin 29.6 PG (27.0-31.0) Mean Corpuscular Hemoglobin Concent 33.5 G/DL (32.0-36.0) Red Cell Distribution Width 13.1 % (11.6-14.8) Platelet Count 370 K/UL (150-450) Mean Platelet Volume 5.1 FL (6.5-10.1) L Neutrophils (%) (Auto) 73.0 % (45.0-75.0) Lymphocytes (%) (Auto) 16.6 % (20.0-45.0) L Monocytes (%) (Auto) 7.5 % (1.0-10.0) Eosinophils (%) (Auto) 2.4 % (0.0-3.0) Basophils (%) (Auto) 0.4 % (0.0-2.0) Sodium Level 143 MMOL/L (136-145) Potassium Level 3.6 MMOL/L (3.5-5.1) Chloride Level 108 MMOL/L (98-107) H Carbon Dioxide Level 26 MMOL/L (21-32) Anion Gap 9 mmol/L (5-15) Blood Urea Nitrogen 13 mg/dL (7-18) Creatinine 1.0 MG/DL (0.55-1.30) Estimat Glomerular Filtration Rate 56.0 mL/min (>60) Glucose Level 97 MG/DL (74-106) Calcium Level 8.2 MG/DL (8.5-10.1) L Current Medications Medications (Trade) Dose Ordered Sig/Maryam Route PRN Reason Start Time Stop Time Status Last Admin Dose Admin Acetaminophen (Tylenol) 650 mg Q6H PRN ORAL MILD PAIN/TEMP >100.5 11/16/19 16:35 12/16/19 16:34 Ascorbic Acid (Vitamin C) 500 mg DAILY ORAL 11/17/19 09:00 12/08/19 08:59 11/17/19 10:45 Aspirin (Ecotrin) 81 mg DAILY ORAL 11/17/19 09:00 12/20/19 08:59 11/17/19 10:46 Dextrose (Dextrose 50%) 25 ml Q30M PRN IV Hypoglycemia 11/16/19 16:45 02/02/20 10:44 Dextrose (Dextrose 50%) 50 ml Q30M PRN IV Hypoglycemia 11/16/19 16:45 02/02/20 10:44 Docusate Sodium (Colace) 100 mg TIDPRN PRN ORAL Constipation 11/16/19 16:35 12/16/19 16:34 Heparin Sodium (Porcine) (Heparin 5000 units/ml) 5,000 units EVERY 12 HOURS SUBQ 11/16/19 21:00 12/27/19 20:59 11/17/19 10:43 Lactulose (Cephulac) 10 gm THREE TIMES A DAY ORAL 11/16/19 18:00 12/13/19 12:59 11/16/19 17:19 Linezolid (Zyvox) 600 mg EVERY 12 HOURS ORAL 11/16/19 21:00 11/19/19 13:29 11/17/19 10:44 Multivitamins (Multivitamins) 1 tab DAILY ORAL 11/17/19 09:00 12/08/19 08:59 11/17/19 10:46 Piperacillin Sod/ Tazobactam Sod 3.375 gm/Sodium Chloride 110 ml @ 27.5 mls/hr EVERY 8 HOURS IVPB 11/16/19 22:00 11/21/19 21:59 11/17/19 05:53 Polyethylene Glycol (Miralax) 17 gm BEDTIME ORAL 11/16/19 21:00 12/13/19 20:59 11/16/19 21:03 Jenna Briseno M.D. November 17, 2019 14:44
[2019-11-17 16:00] VITALS: BP 131/72
--- NOTE | 2019-11-17 17:17 | Pulmonology Progress Note ---
Assessment/Plan Assessment/Plan IMPRESSION: 1. UTI. 2. Hypoxemia. Improving 3. Hypertension. 4. Diabetes mellitus. 5. Previous CVA. 6. Cognitive impairment. 7. long term resident. 8. Bactrim allergy. 9. COVID 19 positive DISCUSSION: Continue oxygen and pulmonary hygiene. 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 SaO2 95% on 2L/min Contine med surg Follow up CXR is better Woody Bradley M.D. Subjective ROS Limited/Unobtainable: No Interval Events: Now on 2L/min O2; none new Constitutional: Reports: no symptoms HEENT: Repors: no symptoms Respiratory: Reports: no symptoms Cardiovascular: Reports: no symptoms Gastrointestinal/Abdominal: Reports: no symptoms Allergies: Coded Allergies: SULFAMETHOXAZOLE (Verified Allergy, Unknown, 11/03/19) TRIMETHOPRIM (Verified Allergy, Unknown, 11/03/19) All Systems: reviewed and negative except above Objective Last 24 Hour Vital Signs Date Time Temp Pulse Resp B/P (MAP) Pulse Ox O2 Delivery O2 Flow Rate FiO2 11/17/19 12:00 98.4 95 18 129/63 (85) 98 11/17/19 09:00 Nasal Cannula 2.0 11/17/19 08:00 98.2 102 17 131/73 (92) 93 11/17/19 04:00 97.9 74 20 132/67 (88) 98 11/17/19 00:00 99.0 110 20 131/78 (95) 94 110 11/16/19 21:40 Nasal Cannula 2.0 11/16/19 20:00 98.7 78 18 115/74 (88) 98 78 Intake and Output 11/16/19 11/17/19 19:00 07:00 Intake Total 310.0 ml Balance 310.0 ml Intake Oral 200 ml IV Total 110.0 ml # Voids 1 # Bowel Movements 1 General Appearance: no acute distress HEENT: mucous membranes moist Respiratory/Chest: chest wall non-tender, decreased breath sounds Cardiovascular: normal peripheral pulses Abdomen: normal bowel sounds Extremities: no cyanosis Neurologic/Psychiatric: alert, responsive Laboratory Tests 11/17/19 05:00: White Blood Count 9.2, Red Blood Count 4.19L, Hemoglobin 12.4, Hematocrit 37.0, Mean Corpuscular Volume 88, Mean Corpuscular Hemoglobin 29.6, Mean Corpuscular Hemoglobin Concent 33.5, Red Cell Distribution Width 13.1, Platelet Count 370, Mean Platelet Volume 5.1L, Neutrophils (%) (Auto) 73.0, Lymphocytes (%) (Auto) 16.6L, Monocytes (%) (Auto) 7.5, Eosinophils (%) (Auto) 2.4, Basophils (%) (Auto ) 0.4, Sodium Level 143, Potassium Level 3.6, Chloride Level 108H, Carbon Dioxide Level 26, Anion Gap 9, Blood Urea Nitrogen 13, Creatinine 1.0, Estimat Glomerular Filtration Rate 56.0, Glucose Level 97, Calcium Level 8.2L Current Medications Medications (Trade) Dose Ordered Sig/Maryam Route PRN Reason Start Time Stop Time Status Last Admin Dose Admin Acetaminophen (Tylenol) 650 mg Q6H PRN ORAL MILD PAIN/TEMP >100.5 11/16/19 16:35 12/16/19 16:34 Ascorbic Acid (Vitamin C) 500 mg DAILY ORAL 11/17/19 09:00 12/08/19 08:59 11/17/19 10:45 Aspirin (Ecotrin) 81 mg DAILY ORAL 11/17/19 09:00 12/20/19 08:59 11/17/19 10:46 Dextrose (Dextrose 50%) 25 ml Q30M PRN IV Hypoglycemia 11/16/19 16:45 02/02/20 10:44 Dextrose (Dextrose 50%) 50 ml Q30M PRN IV Hypoglycemia 11/16/19 16:45 02/02/20 10:44 Docusate Sodium (Colace) 100 mg TIDPRN PRN ORAL Constipation 11/16/19 16:35 12/16/19 16:34 Heparin Sodium (Porcine) (Heparin 5000 units/ml) 5,000 units EVERY 12 HOURS SUBQ 11/16/19 21:00 12/27/19 20:59 11/17/19 10:43 Lactulose (Cephulac) 10 gm THREE TIMES A DAY ORAL 11/16/19 18:00 12/13/19 12:59 11/16/19 17:19 Linezolid (Zyvox) 600 mg EVERY 12 HOURS ORAL 11/16/19 21:00 11/19/19 13:29 11/17/19 10:44 Multivitamins (Multivitamins) 1 tab DAILY ORAL 11/17/19 09:00 12/08/19 08:59 11/17/19 10:46 Piperacillin Sod/ Tazobactam Sod 3.375 gm/Sodium Chloride 110 ml @ 27.5 mls/hr EVERY 8 HOURS IVPB 11/16/19 22:00 11/21/19 21:59 11/17/19 14:42 Polyethylene Glycol (Miralax) 17 gm BEDTIME ORAL 11/16/19 21:00 12/13/19 20:59 11/16/19 21:03 Woody Bradley MD November 17, 2019 17:17
[2019-11-17 20:00] VITALS: BP 123/50
[2019-11-17] MEDS: Miralax 17gm pkt ORAL SCH (20:56)
[2019-11-18] VITALS: BP 123/67
[2019-11-18 03:51] LABS: BASOPHILS % (AUTO) 0.3 % (0.0-2.0); EOSINOPHILS % (AUTO) 2.7 % (0.0-3.0); HEMATOCRIT 38.8 % (37.0-47.0); LYMPHOCYTES % (AUTO) 20.6 % (20.0-45.0); MEAN CORPUSCULAR VOLUME 88 FL (80-99); MONOCYTES % (AUTO) 7.7 % (1.0-10.0); NEUTROPHILS % (AUTO) 68.7 % (45.0-75.0); PLATELET COUNT 381 K/UL (150-450); RED BLOOD COUNT 4.41 M/UL (4.20-5.40); RED CELL DISTRIBUTION WIDTH 13.4 % (11.6-14.8); WHITE BLOOD COUNT 9.4 K/UL (4.8-10.8)
[2019-11-18 04:00] VITALS: BP 126/69
[2019-11-18 04:27] LABS: ALBUMIN 2.3 G/DL (3.4-5.0); ALBUMIN/GLOBULIN RATIO 0.4 (1.0-2.7); ALKALINE PHOSPHATASE 73 U/L (46-116); ANION GAP 10 mmol/L (5-15); ASPARTATE AMINO TRANSFERASE 33 U/L (15-37); BILIRUBIN,TOTAL 0.7 MG/DL (0.2-1.0); BLOOD UREA NITROGEN 13 mg/dL (7-18); CALCIUM 8.8 MG/DL (8.5-10.1); CARBON DIOXIDE 25 MMOL/L (21-32); CHLORIDE 110 MMOL/L (98-107); CREATININE 1.1 MG/DL (0.55-1.30); LACTATE DEHYDROGENASE 287 U/L (81-234); POTASSIUM 4.1 MMOL/L (3.5-5.1); SODIUM 145 MMOL/L (136-145)
[2019-11-18 04:37] LABS: ALBUMIN 2.4 G/DL (3.4-5.0); ALKALINE PHOSPHATASE 71 U/L (46-116); ASPARTATE AMINO TRANSFERASE 34 U/L (15-37); BILIRUBIN,DIRECT 0.2 MG/DL (0.0-0.3); BILIRUBIN,TOTAL 0.7 MG/DL (0.2-1.0); FERRITIN 243 NG/ML (8-388); PHOSPHORUS 3.2 MG/DL (2.5-4.9)
[2019-11-18 04:39] LABS: ALANINE AMINOTRANSFERASE 37 U/L (12-78)
[2019-11-18 04:55] LABS: ALANINE AMINOTRANSFERASE 40 U/L (12-78)
[2019-11-18] MEDS: Piperacillin/Tazobactam 3.375 GM in NS 110 ML IVPB SCH ×3 (05:21→21:44)
[2019-11-18 08:00] VITALS: BP 134/97
--- NOTE | 2019-11-18 09:50 | General Progress Note ---
Assessment/Plan Problem List: (1) Malnutrition ICD Codes: E46 - Unspecified protein-calorie malnutrition SNOMED: 99140747 (2) Anemia ICD Codes: D64.9 - Anemia, unspecified SNOMED: 472751081 (3) Fever ICD Codes: R50.9 - Fever, unspecified SNOMED: 740267963 (4) CVA (cerebral vascular accident) ICD Codes: I63.9 - Cerebral infarction, unspecified SNOMED: 775073895 (5) HTN (hypertension) ICD Codes: I10 - Essential (primary) hypertension SNOMED: 54440653 (6) Diabetes ICD Codes: E11.9 - Type 2 diabetes mellitus without complications SNOMED: 11239366 (7) Renal failure ICD Codes: N19 - Unspecified kidney failure SNOMED: 01897535 (8) Confusion ICD Codes: R41.0 - Disorientation, unspecified SNOMED: 838773691 (9) Hypoxia ICD Codes: R09.02 - Hypoxemia SNOMED: 631033466 (10) Suspected 2019 novel coronavirus infection ICD Codes: R68.89 - Other general symptoms and signs SNOMED: 051718378 (11) UTI (urinary tract infection) ICD Codes: N39.0 - Urinary tract infection, site not specified SNOMED: 14528546 Status: unchanged Assessment/Plan: o2 pulm tx abx bp bs control cbc bmp am Subjective Constitutional: Reports: weakness Allergies: Coded Allergies: SULFAMETHOXAZOLE (Verified Allergy, Unknown, 11/03/19) TRIMETHOPRIM (Verified Allergy, Unknown, 11/03/19) All Systems: reviewed and negative except above Subjective o2 nc calm in bed Objective Last 24 Hour Vital Signs Date Time Temp Pulse Resp B/P (MAP) Pulse Ox O2 Delivery O2 Flow Rate FiO2 11/18/19 05:50 99.5 11/18/19 04:00 100.3 110 21 126/69 (88) 91 11/18/19 00:00 99.9 107 19 123/67 (85) 90 11/17/19 21:00 Nasal Cannula 2.0 11/17/19 20:00 99.1 109 19 123/50 (74) 94 11/17/19 16:00 98.1 83 18 131/72 (91) 98 11/17/19 12:00 98.4 95 18 129/63 (85) 98 Intake and Output 11/17/19 11/18/19 19:00 07:00 Intake Total 800 ml 337.5 ml Balance 800 ml 337.5 ml Intake Oral 200 ml IV Total 137.5 ml Other 800 ml # Voids 2 # Bowel Movements 1 Laboratory Tests 11/18/19 03:00: Fibrinogen 386 11/18/19 03:40: White Blood Count 9.4, Red Blood Count 4.41, Hemoglobin 13.0, Hematocrit 38.8, Mean Corpuscular Volume 88, Mean Corpuscular Hemoglobin 29.5, Mean Corpuscular Hemoglobin Concent 33.5, Red Cell Distribution Width 13.4, Platelet Count 381, Mean Platelet Volume 5.1L, Neutrophils (%) (Auto) 68.7, Lymphocytes (%) (Auto) 20.6, Monocytes (%) (Auto) 7.7, Eosinophils (%) (Auto) 2.7, Basophils (%) (Auto ) 0.3, Sodium Level 145, Potassium Level 4.1, Chloride Level 110H, Carbon Dioxide Level 25, Anion Gap 10, Blood Urea Nitrogen 13, Creatinine 1.1, Estimat Glomerular Filtration Rate 50.2, Glucose Level 105, Uric Acid 4.5, Calcium Level 8.8, Phosphorus Level 3.2, Magnesium Level 2.5H, Ferritin 243, Total Bilirubin 0.7, Direct Bilirubin 0.2, Aspartate Amino Transf (AST/SGOT) 33, Alanine Aminotransferase (ALT/SGPT) 37, Alkaline Phosphatase 73, Lactate Dehydrogenase 287H, C-Reactive Protein, Quantitative 6.7H, Pro-B-Type Natriuretic Peptide 194H, Total Protein 8.4H, Albumin 2.3L, Globulin 6.1, Albumin/Globulin Ratio 0.4L Height (Feet): 5 Height (Inches): 3.00 Weight (Pounds): 146 General Appearance: lethargic EENT: normal ENT inspection Neck: normal alignment Cardiovascular: normal rate, regular rhythm Respiratory/Chest: no respiratory distress, no accessory muscle use Extremities: normal inspection Skin: normal pigmentation Trevor Cabrera DO November 18, 2019 09:50
[2019-11-18] MEDS: Ascorbic Acid 500mg tab ORAL SCH (09:56)
[2019-11-18] MEDS: Lactulose 10gm/15ml UDC ORAL SCH ×3 (09:56→19:24)
[2019-11-18] MEDS: Aspirin EC 81mg tab ORAL SCH (09:56)
[2019-11-18] MEDS: Heparin 5000 units/ml inj SUBQ SCH ×2 (09:58→20:57)
--- NOTE | 2019-11-18 10:17 | General Progress Note ---
Assessment/Plan Problem List: (1) Electrolyte imbalance ICD Codes: E87.8 - Other disorders of electrolyte and fluid balance, not elsewhere classified SNOMED: 524404382 (2) Decubitus skin ulcer ICD Codes: L89.90 - Pressure ulcer of unspecified site, unspecified stage SNOMED: 951055817 (3) HTN (hypertension) ICD Codes: I10 - Essential (primary) hypertension SNOMED: 63063906 (4) CVA (cerebral vascular accident) ICD Codes: I63.9 - Cerebral infarction, unspecified SNOMED: 381777739 (5) Malnutrition ICD Codes: E46 - Unspecified protein-calorie malnutrition SNOMED: 08062752 (6) Diabetes ICD Codes: E11.9 - Type 2 diabetes mellitus without complications SNOMED: 19248173 (7) Anemia ICD Codes: D64.9 - Anemia, unspecified SNOMED: 006443362 (8) Pneumonia due to COVID-19 virus ICD Codes: U07.1 - COVID-19; J12.89 - Other viral pneumonia SNOMED: 237626316, 281521809 (9) UTI (urinary tract infection) ICD Codes: N39.0 - Urinary tract infection, site not specified SNOMED: 13817436 Status: unchanged Assessment/Plan: bowel regimen tyroid labs>>> reviewed has had multiple BM will fu Subjective ROS Limited/Unobtainable: No Allergies: Coded Allergies: SULFAMETHOXAZOLE (Verified Allergy, Unknown, 11/03/19) TRIMETHOPRIM (Verified Allergy, Unknown, 11/03/19) Objective Last 24 Hour Vital Signs Date Time Temp Pulse Resp B/P (MAP) Pulse Ox O2 Delivery O2 Flow Rate FiO2 11/18/19 05:50 99.5 11/18/19 04:00 100.3 110 21 126/69 (88) 91 11/18/19 00:00 99.9 107 19 123/67 (85) 90 11/17/19 21:00 Nasal Cannula 2.0 11/17/19 20:00 99.1 109 19 123/50 (74) 94 11/17/19 16:00 98.1 83 18 131/72 (91) 98 11/17/19 12:00 98.4 95 18 129/63 (85) 98 Intake and Output 11/17/19 11/18/19 19:00 07:00 Intake Total 800 ml 337.5 ml Balance 800 ml 337.5 ml Intake Oral 200 ml IV Total 137.5 ml Other 800 ml # Voids 2 # Bowel Movements 1 Laboratory Tests 11/18/19 03:00: Fibrinogen 386 11/18/19 03:40: White Blood Count 9.4, Red Blood Count 4.41, Hemoglobin 13.0, Hematocrit 38.8, Mean Corpuscular Volume 88, Mean Corpuscular Hemoglobin 29.5, Mean Corpuscular Hemoglobin Concent 33.5, Red Cell Distribution Width 13.4, Platelet Count 381, Mean Platelet Volume 5.1L, Neutrophils (%) (Auto) 68.7, Lymphocytes (%) (Auto) 20.6, Monocytes (%) (Auto) 7.7, Eosinophils (%) (Auto) 2.7, Basophils (%) (Auto ) 0.3, Sodium Level 145, Potassium Level 4.1, Chloride Level 110H, Carbon Dioxide Level 25, Anion Gap 10, Blood Urea Nitrogen 13, Creatinine 1.1, Estimat Glomerular Filtration Rate 50.2, Glucose Level 105, Uric Acid 4.5, Calcium Level 8.8, Phosphorus Level 3.2, Magnesium Level 2.5H, Ferritin 243, Total Bilirubin 0.7, Direct Bilirubin 0.2, Aspartate Amino Transf (AST/SGOT) 33, Alanine Aminotransferase (ALT/SGPT) 37, Alkaline Phosphatase 73, Lactate Dehydrogenase 287H, C-Reactive Protein, Quantitative 6.7H, Pro-B-Type Natriuretic Peptide 194H, Total Protein 8.4H, Albumin 2.3L, Globulin 6.1, Albumin/Globulin Ratio 0.4L Height (Feet): 5 Height (Inches): 3.00 Weight (Pounds): 146 General Appearance: no apparent distress EENT: normal ENT inspection Neck: supple Cardiovascular: normal rate Respiratory/Chest: decreased breath sounds Abdomen: normal bowel sounds, non tender, soft Extremities: non-tender Luke Noe MD November 18, 2019 10:17
--- NOTE | 2019-11-18 10:32 | Nephrology Progress Note ---
Assessment/Plan Problem List: (1) Renal failure (2) Electrolyte imbalance (3) Pneumonia due to COVID-19 virus (4) UTI (urinary tract infection) (5) Diabetes Assessment Renal parameters suggest dehydration and free water deficit, and also effect of Lasix use in the past Hypernatremia, Azotemia, high uric acid COVID positive pneumonia UTI Diabetes mellitus Hypertension History of CVA Allergy to Bactrim [facility] resident Plan Continue per current treatment plan Abnormal electrolytes improving 500 cc of D5W bolus for slightly high serum sodium Monitor electrolytes and renal parameters Continue per consultants Per orders Subjective ROS Limited/Unobtainable: No Constitutional: Reports: malaise, weakness Objective Objective Last 24 Hour Vital Signs Date Time Temp Pulse Resp B/P (MAP) Pulse Ox O2 Delivery O2 Flow Rate FiO2 11/18/19 05:50 99.5 11/18/19 04:00 100.3 110 21 126/69 (88) 91 11/18/19 00:00 99.9 107 19 123/67 (85) 90 11/17/19 21:00 Nasal Cannula 2.0 11/17/19 20:00 99.1 109 19 123/50 (74) 94 11/17/19 16:00 98.1 83 18 131/72 (91) 98 11/17/19 12:00 98.4 95 18 129/63 (85) 98 Intake and Output 11/17/19 11/18/19 19:00 07:00 Intake Total 800 ml 337.5 ml Balance 800 ml 337.5 ml Intake Oral 200 ml IV Total 137.5 ml Other 800 ml # Voids 2 # Bowel Movements 1 Laboratory Tests 11/18/19 03:00: Fibrinogen 386 11/18/19 03:40: White Blood Count 9.4, Red Blood Count 4.41, Hemoglobin 13.0, Hematocrit 38.8, Mean Corpuscular Volume 88, Mean Corpuscular Hemoglobin 29.5, Mean Corpuscular Hemoglobin Concent 33.5, Red Cell Distribution Width 13.4, Platelet Count 381, Mean Platelet Volume 5.1L, Neutrophils (%) (Auto) 68.7, Lymphocytes (%) (Auto) 20.6, Monocytes (%) (Auto) 7.7, Eosinophils (%) (Auto) 2.7, Basophils (%) (Auto ) 0.3, Sodium Level 145, Potassium Level 4.1, Chloride Level 110H, Carbon Dioxide Level 25, Anion Gap 10, Blood Urea Nitrogen 13, Creatinine 1.1, Estimat Glomerular Filtration Rate 50.2, Glucose Level 105, Uric Acid 4.5, Calcium Level 8.8, Phosphorus Level 3.2, Magnesium Level 2.5H, Ferritin 243, Total Bilirubin 0.7, Direct Bilirubin 0.2, Aspartate Amino Transf (AST/SGOT) 33, Alanine Aminotransferase (ALT/SGPT) 37, Alkaline Phosphatase 73, Lactate Dehydrogenase 287H, C-Reactive Protein, Quantitative 6.7H, Pro-B-Type Natriuretic Peptide 194H, Total Protein 8.4H, Albumin 2.3L, Globulin 6.1, Albumin/Globulin Ratio 0.4L Height (Feet): 5 Height (Inches): 3.00 Weight (Pounds): 146 General Appearance: no apparent distress, lethargic Cardiovascular: tachycardia Respiratory/Chest: decreased breath sounds Abdomen: distended Objective No change Wisam Love MD November 18, 2019 10:32
--- NOTE | 2019-11-18 11:54 | Pulmonology Progress Note ---
Assessment/Plan Assessment/Plan IMPRESSION: 1. UTI. 2. Hypoxemia. Improving 3. Hypertension. 4. Diabetes mellitus. 5. Previous CVA. 6. Cognitive impairment. 7. [facility] resident. 8. Bactrim allergy. 9. COVID 19 positive DISCUSSION: Continue oxygen and pulmonary hygiene. 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 SaO2 95% on 2L/min Contine med surg Follow up CXR is better Woody Bradley M.D. Subjective ROS Limited/Unobtainable: No Interval Events: Now on 2L/min O2; none new Constitutional: Reports: no symptoms HEENT: Repors: no symptoms Respiratory: Reports: no symptoms Cardiovascular: Reports: no symptoms Gastrointestinal/Abdominal: Reports: no symptoms Allergies: Coded Allergies: SULFAMETHOXAZOLE (Verified Allergy, Unknown, 11/03/19) TRIMETHOPRIM (Verified Allergy, Unknown, 11/03/19) All Systems: reviewed and negative except above Objective Last 24 Hour Vital Signs Date Time Temp Pulse Resp B/P (MAP) Pulse Ox O2 Delivery O2 Flow Rate FiO2 11/18/19 05:50 99.5 11/18/19 04:00 100.3 110 21 126/69 (88) 91 11/18/19 00:00 99.9 107 19 123/67 (85) 90 11/17/19 21:00 Nasal Cannula 2.0 11/17/19 20:00 99.1 109 19 123/50 (74) 94 11/17/19 16:00 98.1 83 18 131/72 (91) 98 11/17/19 12:00 98.4 95 18 129/63 (85) 98 Intake and Output 11/17/19 11/18/19 19:00 07:00 Intake Total 800 ml 337.5 ml Balance 800 ml 337.5 ml Intake Oral 200 ml IV Total 137.5 ml Other 800 ml # Voids 2 # Bowel Movements 1 General Appearance: no acute distress HEENT: mucous membranes moist Respiratory/Chest: chest wall non-tender, decreased breath sounds Cardiovascular: normal peripheral pulses Abdomen: normal bowel sounds Extremities: no cyanosis Neurologic/Psychiatric: alert, responsive Laboratory Tests 11/18/19 03:00: Fibrinogen 386 5/4/20 03:40: White Blood Count 9.4, Red Blood Count 4.41, Hemoglobin 13.0, Hematocrit 38.8, Mean Corpuscular Volume 88, Mean Corpuscular Hemoglobin 29.5, Mean Corpuscular Hemoglobin Concent 33.5, Red Cell Distribution Width 13.4, Platelet Count 381, Mean Platelet Volume 5.1L, Neutrophils (%) (Auto) 68.7, Lymphocytes (%) (Auto) 20.6, Monocytes (%) (Auto) 7.7, Eosinophils (%) (Auto) 2.7, Basophils (%) (Auto ) 0.3, Sodium Level 145, Potassium Level 4.1, Chloride Level 110H, Carbon Dioxide Level 25, Anion Gap 10, Blood Urea Nitrogen 13, Creatinine 1.1, Estimat Glomerular Filtration Rate 50.2, Glucose Level 105, Uric Acid 4.5, Calcium Level 8.8, Phosphorus Level 3.2, Magnesium Level 2.5H, Ferritin 243, Total Bilirubin 0.7, Direct Bilirubin 0.2, Aspartate Amino Transf (AST/SGOT) 33, Alanine Aminotransferase (ALT/SGPT) 37, Alkaline Phosphatase 73, Lactate Dehydrogenase 287H, C-Reactive Protein, Quantitative 6.7H, Pro-B-Type Natriuretic Peptide 194H, Total Protein 8.4H, Albumin 2.3L, Globulin 6.1, Albumin/Globulin Ratio 0.4L Current Medications Medications (Trade) Dose Ordered Sig/Maryam Route PRN Reason Start Time Stop Time Status Last Admin Dose Admin Acetaminophen (Tylenol) 650 mg Q6H PRN ORAL MILD PAIN/TEMP >100.5 11/16/19 16:35 12/16/19 16:34 11/18/19 05:20 Ascorbic Acid (Vitamin C) 500 mg DAILY ORAL 11/17/19 09:00 12/08/19 08:59 11/18/19 09:56 Aspirin (Ecotrin) 81 mg DAILY ORAL 11/17/19 09:00 12/20/19 08:59 11/18/19 09:56 Dextrose (Dextrose 50%) 25 ml Q30M PRN IV Hypoglycemia 11/16/19 16:45 02/02/20 10:44 Dextrose (Dextrose 50%) 50 ml Q30M PRN IV Hypoglycemia 11/16/19 16:45 02/02/20 10:44 Docusate Sodium (Colace) 100 mg TIDPRN PRN ORAL Constipation 11/16/19 16:35 12/16/19 16:34 Heparin Sodium (Porcine) (Heparin 5000 units/ml) 5,000 units EVERY 12 HOURS SUBQ 11/16/19 21:00 12/27/19 20:59 11/18/19 09:58 Lactulose (Cephulac) 10 gm THREE TIMES A DAY ORAL 11/16/19 18:00 12/13/19 12:59 11/18/19 09:56 Linezolid (Zyvox) 600 mg EVERY 12 HOURS ORAL 11/16/19 21:00 11/19/19 13:29 11/18/19 10:19 Multivitamins (Multivitamins) 1 tab DAILY ORAL 11/17/19 09:00 12/08/19 08:59 11/18/19 09:56 Piperacillin Sod/ Tazobactam Sod 3.375 gm/Sodium Chloride 110 ml @ 27.5 mls/hr EVERY 8 HOURS IVPB 11/16/19 22:00 11/21/19 21:59 11/18/19 05:21 Polyethylene Glycol (Miralax) 17 gm BEDTIME ORAL 11/16/19 21:00 12/13/19 20:59 11/16/19 21:03 Woody Bradley MD November 18, 2019 11:54
[2019-11-18 12:00] VITALS: BP 129/96
--- NOTE | 2019-11-18 14:28 | Infectious Diseases Prog Note ---
Assessment/Plan Assessment/Plan Assessment: Sepsis Fever, SP Acute hypoxic respiratory failure- s/p simple mask, sp NRB, now on 2l NC Pnuemonia- 2ry to COVID19 -11/16 CXR: Diffuse bilateral airspace opacities are slightly improved. -11/13 CXR: Unchanged, over 2 days, findings as above. -11/08 CXR: Interval worsening bilateral airspace opacities, worse in the right lung. -11/05 CXR: Slight worsening of bilateral right greater than left interstitial and airspace opacities, over 3 days. Most likely pneumonia but pulmonary edema also a possibility -11/02 CXR: Borderline cardiomegaly. Bilateral interstitial disease. This is nonspecific, could indicate infiltrates, edema, among other possibilities SARS-COV2 PCR + -Influenza sc neg -Bcx NTD -Ferritin 243 (11/17),338 (11/13)<568 (11/08)<- 841 (11/06) -CRP 6.7 (11/17)< 12 (11/13)< 7.9(11/10)<-11.2 (11/08) <- 7.1 (11/06) -Tspot neg Mild leukocytosis, SP -11/13 Bcx NTD UTI -11/10 u/a wbc olivia, nit neg, leuk +3; ucx 10-20k VRE (S amp) -u/a wbc tnct, nit neg, leuk +3; ucx >100k E.coli (hernandes S), >100k P.mirabilis ( R. Ceftriaxone, bactrim) Elevated LFTs, SP Dm2 HTN CVA SNF resident ([facility]) Plan: - Start empiric Zosyn and ZYvox #5/5-7 -Will not start Plaquenil as not recommended by IDSA and NIH guidelines -Will consider steroids if worsening -11/11 SP Cefepime #8 -11/07 SP Azithromycin #5 -11/03 SP Ceftriaxone #2 -f/u cx -Monitor CBC/CMP, temperaturse -Monitor inflammatory markers, CXR -CXR am Thank you for consulting [facility]. Will continue to follow along wiht you. Subjective Allergies: Coded Allergies: SULFAMETHOXAZOLE (Verified Allergy, Unknown, 11/03/19) TRIMETHOPRIM (Verified Allergy, Unknown, 11/03/19) Subjective Tm 100.3 at 2L NC Objective Vital Signs Last 24 Hour Vital Signs Date Time Temp Pulse Resp B/P (MAP) Pulse Ox O2 Delivery O2 Flow Rate FiO2 11/18/19 08:00 98.9 102 19 134/97 (109) 91 11/18/19 05:50 99.5 11/18/19 04:00 100.3 110 21 126/69 (88) 91 11/18/19 00:00 99.9 107 19 123/67 (85) 90 11/17/19 21:00 Nasal Cannula 2.0 11/17/19 20:00 99.1 109 19 123/50 (74) 94 11/17/19 16:00 98.1 83 18 131/72 (91) 98 Height (Feet): 5 Height (Inches): 3.00 Weight (Pounds): 146 Objective not examined to limit covid exposure Laboratory Tests Test 11/18/19 03:00 11/18/19 03:40 Fibrinogen 386 mg/dL (200-400) White Blood Count 9.4 K/UL (4.8-10.8) Red Blood Count 4.41 M/UL (4.20-5.40) Hemoglobin 13.0 G/DL (12.0-16.0) Hematocrit 38.8 % (37.0-47.0) Mean Corpuscular Volume 88 FL (80-99) Mean Corpuscular Hemoglobin 29.5 PG (27.0-31.0) Mean Corpuscular Hemoglobin Concent 33.5 G/DL (32.0-36.0) Red Cell Distribution Width 13.4 % (11.6-14.8) Platelet Count 381 K/UL (150-450) Mean Platelet Volume 5.1 FL (6.5-10.1) L Neutrophils (%) (Auto) 68.7 % (45.0-75.0) Lymphocytes (%) (Auto) 20.6 % (20.0-45.0) Monocytes (%) (Auto) 7.7 % (1.0-10.0) Eosinophils (%) (Auto) 2.7 % (0.0-3.0) Basophils (%) (Auto) 0.3 % (0.0-2.0) Sodium Level 145 MMOL/L (136-145) Potassium Level 4.1 MMOL/L (3.5-5.1) Chloride Level 110 MMOL/L (98-107) H Carbon Dioxide Level 25 MMOL/L (21-32) Anion Gap 10 mmol/L (5-15) Blood Urea Nitrogen 13 mg/dL (7-18) Creatinine 1.1 MG/DL (0.55-1.30) Estimat Glomerular Filtration Rate 50.2 mL/min (>60) Glucose Level 105 MG/DL (74-106) Uric Acid 4.5 MG/DL (2.6-7.2) Calcium Level 8.8 MG/DL (8.5-10.1) Phosphorus Level 3.2 MG/DL (2.5-4.9) Magnesium Level 2.5 MG/DL (1.8-2.4) H Ferritin 243 NG/ML (8-388) Total Bilirubin 0.7 MG/DL (0.2-1.0) Direct Bilirubin 0.2 MG/DL (0.0-0.3) Aspartate Amino Transf (AST/SGOT) 33 U/L (15-37) Alanine Aminotransferase (ALT/SGPT) 37 U/L (12-78) Alkaline Phosphatase 73 U/L (46-116) Lactate Dehydrogenase 287 U/L (81-234) H C-Reactive Protein, Quantitative 6.7 mg/dL (0.00-0.90) H Pro-B-Type Natriuretic Peptide 194 pg/mL (0-125) H Total Protein 8.4 G/DL (6.4-8.2) H Albumin 2.3 G/DL (3.4-5.0) L Globulin 6.1 g/dL Albumin/Globulin Ratio 0.4 (1.0-2.7) L Current Medications Medications (Trade) Dose Ordered Sig/Maryam Route PRN Reason Start Time Stop Time Status Last Admin Dose Admin Acetaminophen (Tylenol) 650 mg Q6H PRN ORAL MILD PAIN/TEMP >100.5 11/16/19 16:35 12/16/19 16:34 11/18/19 05:20 Ascorbic Acid (Vitamin C) 500 mg DAILY ORAL 11/17/19 09:00 12/08/19 08:59 11/18/19 09:56 Aspirin (Ecotrin) 81 mg DAILY ORAL 11/17/19 09:00 12/20/19 08:59 11/18/19 09:56 Dextrose (Dextrose 50%) 25 ml Q30M PRN IV Hypoglycemia 11/16/19 16:45 02/02/20 10:44 Dextrose (Dextrose 50%) 50 ml Q30M PRN IV Hypoglycemia 11/16/19 16:45 02/02/20 10:44 Docusate Sodium (Colace) 100 mg TIDPRN PRN ORAL Constipation 11/16/19 16:35 12/16/19 16:34 Heparin Sodium (Porcine) (Heparin 5000 units/ml) 5,000 units EVERY 12 HOURS SUBQ 11/16/19 21:00 12/27/19 20:59 11/18/19 09:58 Lactulose (Cephulac) 10 gm THREE TIMES A DAY ORAL 11/16/19 18:00 12/13/19 12:59 11/18/19 09:56 Linezolid (Zyvox) 600 mg EVERY 12 HOURS ORAL 11/16/19 21:00 11/19/19 13:29 11/18/19 10:19 Multivitamins (Multivitamins) 1 tab DAILY ORAL 11/17/19 09:00 12/08/19 08:59 11/18/19 09:56 Piperacillin Sod/ Tazobactam Sod 3.375 gm/Sodium Chloride 110 ml @ 27.5 mls/hr EVERY 8 HOURS IVPB 11/16/19 22:00 11/21/19 21:59 11/18/19 05:21 Polyethylene Glycol (Miralax) 17 gm BEDTIME ORAL 11/16/19 21:00 12/13/19 20:59 11/16/19 21:03 Jenna Briseno M.D. November 18, 2019 14:28
--- NOTE | 2019-11-18 15:32 | Surgery Progress Note ---
Surgery Progress Note Subjective Additional Comments leukocytosis resolved labs okay exam stable comfortable appearing cannot follow commands Pt is unable to follow simple 1-step directions, does not consistently respond to name, unable to complete simple yes/no questions. Unable to complete object naming task, demonstrates poor insights into deficits, safety awareness Objective Last 24 Hour Vital Signs Date Time Temp Pulse Resp B/P (MAP) Pulse Ox O2 Delivery O2 Flow Rate FiO2 11/18/19 08:00 98.9 102 19 134/97 (109) 91 11/18/19 05:50 99.5 11/18/19 04:00 100.3 110 21 126/69 (88) 91 11/18/19 00:00 99.9 107 19 123/67 (85) 90 11/17/19 21:00 Nasal Cannula 2.0 11/17/19 20:00 99.1 109 19 123/50 (74) 94 11/17/19 16:00 98.1 83 18 131/72 (91) 98 I&O Intake and Output 11/17/19 11/18/19 19:00 07:00 Intake Total 800 ml 337.5 ml Balance 800 ml 337.5 ml Intake Oral 200 ml IV Total 137.5 ml Other 800 ml # Voids 2 # Bowel Movements 1 Dressing: saturated Wound: clean Cardiovascular: RSR Respiratory: decreased breath sounds Abdomen: soft, non-tender, present bowel sounds Extremities: no cyanosis Laboratory Tests Test 11/18/19 03:00 11/18/19 03:40 Fibrinogen 386 mg/dL (200-400) White Blood Count 9.4 K/UL (4.8-10.8) Red Blood Count 4.41 M/UL (4.20-5.40) Hemoglobin 13.0 G/DL (12.0-16.0) Hematocrit 38.8 % (37.0-47.0) Mean Corpuscular Volume 88 FL (80-99) Mean Corpuscular Hemoglobin 29.5 PG (27.0-31.0) Mean Corpuscular Hemoglobin Concent 33.5 G/DL (32.0-36.0) Red Cell Distribution Width 13.4 % (11.6-14.8) Platelet Count 381 K/UL (150-450) Mean Platelet Volume 5.1 FL (6.5-10.1) L Neutrophils (%) (Auto) 68.7 % (45.0-75.0) Lymphocytes (%) (Auto) 20.6 % (20.0-45.0) Monocytes (%) (Auto) 7.7 % (1.0-10.0) Eosinophils (%) (Auto) 2.7 % (0.0-3.0) Basophils (%) (Auto) 0.3 % (0.0-2.0) Sodium Level 145 MMOL/L (136-145) Potassium Level 4.1 MMOL/L (3.5-5.1) Chloride Level 110 MMOL/L (98-107) H Carbon Dioxide Level 25 MMOL/L (21-32) Anion Gap 10 mmol/L (5-15) Blood Urea Nitrogen 13 mg/dL (7-18) Creatinine 1.1 MG/DL (0.55-1.30) Estimat Glomerular Filtration Rate 50.2 mL/min (>60) Glucose Level 105 MG/DL (74-106) Uric Acid 4.5 MG/DL (2.6-7.2) Calcium Level 8.8 MG/DL (8.5-10.1) Phosphorus Level 3.2 MG/DL (2.5-4.9) Magnesium Level 2.5 MG/DL (1.8-2.4) H Ferritin 243 NG/ML (8-388) Total Bilirubin 0.7 MG/DL (0.2-1.0) Direct Bilirubin 0.2 MG/DL (0.0-0.3) Aspartate Amino Transf (AST/SGOT) 33 U/L (15-37) Alanine Aminotransferase (ALT/SGPT) 37 U/L (12-78) Alkaline Phosphatase 73 U/L (46-116) Lactate Dehydrogenase 287 U/L (81-234) H C-Reactive Protein, Quantitative 6.7 mg/dL (0.00-0.90) H Pro-B-Type Natriuretic Peptide 194 pg/mL (0-125) H Total Protein 8.4 G/DL (6.4-8.2) H Albumin 2.3 G/DL (3.4-5.0) L Globulin 6.1 g/dL Albumin/Globulin Ratio 0.4 (1.0-2.7) L Plan Problems: (1) Hypoxia Assessment & Plan: supplemental O2 monitor closely (2) UTI (urinary tract infection) (3) Suspected 2019 novel coronavirus infection (4) Pneumonia due to COVID-19 virus Assessment & Plan: The heart is borderline enlarged. There are bilateral interstitial opacities diffusely. No definite focal airspace consolidation. The pleural spaces are clear. Impression: Borderline cardiomegaly. Bilateral interstitial disease. This is nonspecific, could indicate infiltrates, edema, among other possibilities on Non rebreather can desaturate may consider steroids (5) Fever (6) Anemia (7) Confusion (8) Diabetes (9) Renal failure (10) Malnutrition Assessment & Plan: DAILY ESTIMATED NEEDS: Needs based on Wound, DM/ 53kg abw 25-30 kcals/kg 9471-7244 total kcals 1.25-1.5 g protein/kg 66-79 g total protein 25-30 mL/kg 9610-6961 total fluid mLs NUTRITION DIAGNOSIS: * Increased kcal/prot intake needs R/T wound healing as evidenced by admitted w/ DTPI wound @ L ischium, non-blanching erythema at cleft of buttocks. * Altered nutrition related lab values R/T diabetes as evidenced by elev POC glu (174, 102, 151, 123, now improved), on NISS. CURRENT DIET:REGULAR PO DIET RECOMMENDATIONS: CCHO med/ texture as tolerated or per [employer] ADDITIONAL RECOMMENDATIONS: * Per SNF: HT=61" QZ=501pjn * Wound healing: add MVI x 1, Vit C 500mg QD, SYED BID * sliding scale insulin prn * Texture downgrade for chewing deficit as per RN -> consider pureed, rec [employer] eval * High kcal supplement w/ meals, will start w/ Ensure Clear and monitor acceptance (250 kcal/ 8g pro each) (11) HTN (hypertension) (12) CVA (cerebral vascular accident) (13) Decubitus skin ulcer Assessment & Plan: Pt presented on admission with DTPI L ischium. Base of wound is purple, indurated. An area of hyperpigmentation noted distally but in close to wound bed. Non-blanching erythema cleft of buttocks. Hyperpigmentation from previous wound noted to R ischium. Within area of hyperpigmentation an area of non-blanchable erythema noted. No other skin concerns noted. fortunately DTI improving with close care and monitoring nutritional improvement necessary still as abl now 2.3 cont diet push intake will monitor Tx.Plan: Apply Moisture Barrier Paste to Sacrum. Cover with Optifoam drsg. Change every 3 days and prn. Apply Moisture Barrier Paste to R and L Ischium. Cover each area with Optifoam drsg. Change every 3 days and prn. Apply Cavilon Skin Barrier to both heels. Cover each heel with Optifoam drsg. Change every 7 days and prn. Reposition at least every 2hours or as tolerated. Off-load heels with Pillow. DAILY ESTIMATED NEEDS: Needs based on Wound, DM/ 53kg abw 25-30 kcals/kg 6134-8111 total kcals 1.25-1.5 g protein/kg 66-79 g total protein 25-30 mL/kg 3484-7846 total fluid mLs NUTRITION DIAGNOSIS: * Increased kcal/prot intake needs R/T wound healing as evidenced by admitted w/ DTPI wound @ L ischium, non-blanching erythema at cleft of buttocks. * Altered nutrition related lab values R/T diabetes as evidenced by elev POC glu (174, 102, 151, 123), on NISS. CURRENT DIET:REGULAR PO DIET RECOMMENDATIONS: CCHO med/ texture as tolerated or per [employer] ADDITIONAL RECOMMENDATIONS: * Per SNF: HT=61" GS=603lid * Wound healing: add MVI x 1, Vit C 500mg QD add Syed BID * Texture downgrade for chewing deficit as per RN -> consider pureed * Glucerna x 1 with variable intake (220kcal/10g prot each) Humble Sewell November 18, 2019 15:32
[2019-11-18 16:00] VITALS: BP 118/68
[2019-11-18 20:00] VITALS: BP 121/61
[2019-11-18] MEDS: Miralax 17gm pkt ORAL SCH (20:59)
[2019-11-19] VITALS: BP 128/76
[2019-11-19 04:00] VITALS: BP 116/65
[2019-11-19] MEDS: Piperacillin/Tazobactam 3.375 GM in NS 110 ML IVPB SCH ×2 (05:43→14:00)
[2019-11-19 07:03] LABS: BASOPHILS % (AUTO) 0.5 % (0.0-2.0); EOSINOPHILS % (AUTO) 2.1 % (0.0-3.0); HEMATOCRIT 36.9 % (37.0-47.0); HEMOGLOBIN 12.5 G/DL (12.0-16.0); LYMPHOCYTES % (AUTO) 18.6 % (20.0-45.0); MEAN CORPUSCULAR VOLUME 90 FL (80-99); MONOCYTES % (AUTO) 9.2 % (1.0-10.0); NEUTROPHILS % (AUTO) 69.6 % (45.0-75.0); PLATELET COUNT 347 K/UL (150-450); RED BLOOD COUNT 4.12 M/UL (4.20-5.40); RED CELL DISTRIBUTION WIDTH 13.9 % (11.6-14.8); WHITE BLOOD COUNT 10.8 K/UL (4.8-10.8)
[2019-11-19 07:21] LABS: ANION GAP 12 mmol/L (5-15); BLOOD UREA NITROGEN 15 mg/dL (7-18); CALCIUM 8.8 MG/DL (8.5-10.1); CARBON DIOXIDE 23 MMOL/L (21-32); CHLORIDE 114 MMOL/L (98-107); CREATININE 1.2 MG/DL (0.55-1.30); POTASSIUM 3.9 MMOL/L (3.5-5.1); SODIUM 149 MMOL/L (136-145)
[2019-11-19 08:00] VITALS: BP 123/76
[2019-11-19] MEDS: Ascorbic Acid 500mg tab ORAL SCH (09:21)
[2019-11-19] MEDS: Lactulose 10gm/15ml UDC ORAL SCH ×3 (09:21→18:05)
[2019-11-19] MEDS: Heparin 5000 units/ml inj SUBQ SCH ×2 (09:22→20:34)
[2019-11-19] MEDS: Aspirin EC 81mg tab ORAL SCH (09:25)
--- NOTE | 2019-11-19 11:11 | General Progress Note ---
Assessment/Plan Problem List: (1) Electrolyte imbalance ICD Codes: E87.8 - Other disorders of electrolyte and fluid balance, not elsewhere classified SNOMED: 078720492 (2) Decubitus skin ulcer ICD Codes: L89.90 - Pressure ulcer of unspecified site, unspecified stage SNOMED: 615750206 (3) HTN (hypertension) ICD Codes: I10 - Essential (primary) hypertension SNOMED: 67431940 (4) CVA (cerebral vascular accident) ICD Codes: I63.9 - Cerebral infarction, unspecified SNOMED: 598677573 (5) Malnutrition ICD Codes: E46 - Unspecified protein-calorie malnutrition SNOMED: 86336869 (6) Diabetes ICD Codes: E11.9 - Type 2 diabetes mellitus without complications SNOMED: 18554962 (7) Anemia ICD Codes: D64.9 - Anemia, unspecified SNOMED: 489299368 (8) Pneumonia due to COVID-19 virus ICD Codes: U07.1 - COVID-19; J12.89 - Other viral pneumonia SNOMED: 506125515, 315889627 (9) UTI (urinary tract infection) ICD Codes: N39.0 - Urinary tract infection, site not specified SNOMED: 76505640 Status: unchanged Assessment/Plan: bowel regimen tyroid labs>>> reviewed has had multiple BM will fu Subjective Allergies: Coded Allergies: SULFAMETHOXAZOLE (Verified Allergy, Unknown, 11/03/19) TRIMETHOPRIM (Verified Allergy, Unknown, 11/03/19) Objective Last 24 Hour Vital Signs Date Time Temp Pulse Resp B/P (MAP) Pulse Ox O2 Delivery O2 Flow Rate FiO2 11/19/19 09:00 Nasal Cannula 2.0 11/19/19 08:00 100.9 124 20 123/76 (92) 98 11/19/19 04:00 100.0 107 20 116/65 (82) 93 11/19/19 00:25 101.0 11/19/19 00:00 101.7 113 22 128/76 (93) 93 11/18/19 21:00 Nasal Cannula 2.0 11/18/19 20:00 100.4 111 23 121/61 (81) 95 11/18/19 16:00 101.8 124 20 118/68 (85) 98 11/18/19 12:00 98.9 101 20 129/96 (107) 98 Intake and Output 11/18/19 11/19/19 19:00 07:00 # Voids 3 2 # Bowel Movements 2 Laboratory Tests 11/19/19 05:45: White Blood Count 10.8, Red Blood Count 4.12L, Hemoglobin 12.5, Hematocrit 36.9L , Mean Corpuscular Volume 90, Mean Corpuscular Hemoglobin 30.3, Mean Corpuscular Hemoglobin Concent 33.8, Red Cell Distribution Width 13.9, Platelet Count 347, Mean Platelet Volume 5.1L, Neutrophils (%) (Auto) 69.6, Lymphocytes ( %) (Auto) 18.6L, Monocytes (%) (Auto) 9.2, Eosinophils (%) (Auto) 2.1, Basophils (%) (Auto) 0.5, Sodium Level 149H, Potassium Level 3.9, Chloride Level 114H, Carbon Dioxide Level 23, Anion Gap 12, Blood Urea Nitrogen 15, Creatinine 1.2, Estimat Glomerular Filtration Rate 45.3, Glucose Level 107H, Calcium Level 8.8 Height (Feet): 5 Height (Inches): 3.00 Weight (Pounds): 146 General Appearance: no apparent distress EENT: PERRL/EOMI Neck: supple Cardiovascular: normal rate Respiratory/Chest: decreased breath sounds Abdomen: normal bowel sounds, non tender, soft Extremities: non-tender Luke Noe MD November 19, 2019 11:11
[2019-11-19 12:00] VITALS: BP 142/68
--- NOTE | 2019-11-19 12:40 | General Progress Note ---
Assessment/Plan Problem List: (1) Malnutrition ICD Codes: E46 - Unspecified protein-calorie malnutrition SNOMED: 46702109 (2) Anemia ICD Codes: D64.9 - Anemia, unspecified SNOMED: 130073228 (3) Fever ICD Codes: R50.9 - Fever, unspecified SNOMED: 723097694 (4) CVA (cerebral vascular accident) ICD Codes: I63.9 - Cerebral infarction, unspecified SNOMED: 092863695 (5) HTN (hypertension) ICD Codes: I10 - Essential (primary) hypertension SNOMED: 34036872 (6) Diabetes ICD Codes: E11.9 - Type 2 diabetes mellitus without complications SNOMED: 83188486 (7) Renal failure ICD Codes: N19 - Unspecified kidney failure SNOMED: 69934483 (8) Confusion ICD Codes: R41.0 - Disorientation, unspecified SNOMED: 265422993 (9) Hypoxia ICD Codes: R09.02 - Hypoxemia SNOMED: 983493295 (10) Suspected 2019 novel coronavirus infection ICD Codes: R68.89 - Other general symptoms and signs SNOMED: 482498765 (11) UTI (urinary tract infection) ICD Codes: N39.0 - Urinary tract infection, site not specified SNOMED: 66401520 Status: unchanged Assessment/Plan: o2 pulm tx abx bp bs control cbc bmp am Subjective Constitutional: Reports: weakness Allergies: Coded Allergies: SULFAMETHOXAZOLE (Verified Allergy, Unknown, 11/03/19) TRIMETHOPRIM (Verified Allergy, Unknown, 11/03/19) All Systems: reviewed and negative except above Subjective o2 nc calm in bed Objective Last 24 Hour Vital Signs Date Time Temp Pulse Resp B/P (MAP) Pulse Ox O2 Delivery O2 Flow Rate FiO2 11/19/19 09:00 Nasal Cannula 2.0 11/19/19 08:00 100.9 124 20 123/76 (92) 98 11/19/19 04:00 100.0 107 20 116/65 (82) 93 11/19/19 00:25 101.0 11/19/19 00:00 101.7 113 22 128/76 (93) 93 11/18/19 21:00 Nasal Cannula 2.0 11/18/19 20:00 100.4 111 23 121/61 (81) 95 11/18/19 16:00 101.8 124 20 118/68 (85) 98 Intake and Output 11/18/19 11/19/19 19:00 07:00 # Voids 3 2 # Bowel Movements 2 Laboratory Tests 11/19/19 05:45: White Blood Count 10.8, Red Blood Count 4.12L, Hemoglobin 12.5, Hematocrit 36.9L , Mean Corpuscular Volume 90, Mean Corpuscular Hemoglobin 30.3, Mean Corpuscular Hemoglobin Concent 33.8, Red Cell Distribution Width 13.9, Platelet Count 347, Mean Platelet Volume 5.1L, Neutrophils (%) (Auto) 69.6, Lymphocytes ( %) (Auto) 18.6L, Monocytes (%) (Auto) 9.2, Eosinophils (%) (Auto) 2.1, Basophils (%) (Auto) 0.5, Sodium Level 149H, Potassium Level 3.9, Chloride Level 114H, Carbon Dioxide Level 23, Anion Gap 12, Blood Urea Nitrogen 15, Creatinine 1.2, Estimat Glomerular Filtration Rate 45.3, Glucose Level 107H, Calcium Level 8.8 Height (Feet): 5 Height (Inches): 3.00 Weight (Pounds): 146 General Appearance: lethargic EENT: normal ENT inspection Neck: normal alignment Cardiovascular: normal rate, regular rhythm Respiratory/Chest: no respiratory distress, no accessory muscle use Extremities: normal inspection Skin: normal pigmentation Trevor Cabrera DO November 19, 2019 12:40
--- NOTE | 2019-11-19 13:41 | Infectious Diseases Prog Note ---
Assessment/Plan Assessment/Plan Assessment: Sepsis Fever, recurrent Acute hypoxic respiratory failure- s/p simple mask, sp NRB, now on 2l NC Pnuemonia- 2ry to COVID19 -11/16 CXR: Diffuse bilateral airspace opacities are slightly improved. -11/13 CXR: Unchanged, over 2 days, findings as above. -11/08 CXR: Interval worsening bilateral airspace opacities, worse in the right lung. -11/05 CXR: Slight worsening of bilateral right greater than left interstitial and airspace opacities, over 3 days. Most likely pneumonia but pulmonary edema also a possibility -11/02 CXR: Borderline cardiomegaly. Bilateral interstitial disease. This is nonspecific, could indicate infiltrates, edema, among other possibilities SARS-COV2 PCR + -Influenza sc neg -Bcx NTD -Ferritin 243 (11/17),338 (11/13)<568 (11/08)<- 841 (11/06) -CRP 6.7 (11/17)< 12 (11/13)< 7.9(11/10)<-11.2 (11/08) <- 7.1 (11/06) -Tspot neg Mild leukocytosis, SP -11/13 Bcx NTD UTI -11/10 u/a wbc olivia, nit neg, leuk +3; ucx 10-20k VRE (S amp) -u/a wbc tnct, nit neg, leuk +3; ucx >100k E.coli (hernandes S), >100k P.mirabilis ( R. Ceftriaxone, bactrim) Elevated LFTs, SP Dm2 HTN CVA SNF resident ([facility]) Plan: - Continue empiric Zosyn and ZYvox #6/7 -Will not start Plaquenil as not recommended by IDSA and NIH guidelines -Will consider steroids if worsening -11/11 SP Cefepime #8 -11/07 SP Azithromycin #5 -11/03 SP Ceftriaxone #2 -f/u cx -Monitor CBC/CMP, temperaturse -Monitor inflammatory markers, CXR -CXR am -Bcx x2, Sp cx Thank you for consulting [facility]. Will continue to follow along wiht you. Discussed with RN Subjective Allergies: Coded Allergies: SULFAMETHOXAZOLE (Verified Allergy, Unknown, 11/03/19) TRIMETHOPRIM (Verified Allergy, Unknown, 11/03/19) Subjective Tm 101.7 at 2L NC Objective Vital Signs Last 24 Hour Vital Signs Date Time Temp Pulse Resp B/P (MAP) Pulse Ox O2 Delivery O2 Flow Rate FiO2 11/19/19 12:00 101.7 118 20 142/68 (92) 98 11/19/19 09:51 100.1 11/19/19 09:00 Nasal Cannula 2.0 11/19/19 08:00 100.9 124 20 123/76 (92) 98 11/19/19 04:00 100.0 107 20 116/65 (82) 93 11/19/19 00:00 101.7 113 22 128/76 (93) 93 11/18/19 21:00 Nasal Cannula 2.0 11/18/19 20:00 100.4 111 23 121/61 (81) 95 11/18/19 16:00 101.8 124 20 118/68 (85) 98 Height (Feet): 5 Height (Inches): 3.00 Weight (Pounds): 146 Objective not examined to limit covid exposure Laboratory Tests Test 11/19/19 05:45 White Blood Count 10.8 K/UL (4.8-10.8) Red Blood Count 4.12 M/UL (4.20-5.40) L Hemoglobin 12.5 G/DL (12.0-16.0) Hematocrit 36.9 % (37.0-47.0) L Mean Corpuscular Volume 90 FL (80-99) Mean Corpuscular Hemoglobin 30.3 PG (27.0-31.0) Mean Corpuscular Hemoglobin Concent 33.8 G/DL (32.0-36.0) Red Cell Distribution Width 13.9 % (11.6-14.8) Platelet Count 347 K/UL (150-450) Mean Platelet Volume 5.1 FL (6.5-10.1) L Neutrophils (%) (Auto) 69.6 % (45.0-75.0) Lymphocytes (%) (Auto) 18.6 % (20.0-45.0) L Monocytes (%) (Auto) 9.2 % (1.0-10.0) Eosinophils (%) (Auto) 2.1 % (0.0-3.0) Basophils (%) (Auto) 0.5 % (0.0-2.0) Sodium Level 149 MMOL/L (136-145) H Potassium Level 3.9 MMOL/L (3.5-5.1) Chloride Level 114 MMOL/L (98-107) H Carbon Dioxide Level 23 MMOL/L (21-32) Anion Gap 12 mmol/L (5-15) Blood Urea Nitrogen 15 mg/dL (7-18) Creatinine 1.2 MG/DL (0.55-1.30) Estimat Glomerular Filtration Rate 45.3 mL/min (>60) Glucose Level 107 MG/DL (74-106) H Calcium Level 8.8 MG/DL (8.5-10.1) Current Medications Medications (Trade) Dose Ordered Sig/Maryam Route PRN Reason Start Time Stop Time Status Last Admin Dose Admin Acetaminophen (Tylenol) 650 mg Q6H PRN ORAL MILD PAIN/TEMP >100.5 11/16/19 16:35 12/16/19 16:34 11/19/19 09:21 Ascorbic Acid (Vitamin C) 500 mg DAILY ORAL 11/17/19 09:00 12/08/19 08:59 11/19/19 09:21 Aspirin (Ecotrin) 81 mg DAILY ORAL 11/17/19 09:00 12/20/19 08:59 11/19/19 09:25 Dextrose (Dextrose 50%) 25 ml Q30M PRN IV Hypoglycemia 11/16/19 16:45 02/02/20 10:44 Dextrose (Dextrose 50%) 50 ml Q30M PRN IV Hypoglycemia 11/16/19 16:45 02/02/20 10:44 Docusate Sodium (Colace) 100 mg TIDPRN PRN ORAL Constipation 11/16/19 16:35 12/16/19 16:34 Heparin Sodium (Porcine) (Heparin 5000 units/ml) 5,000 units EVERY 12 HOURS SUBQ 11/16/19 21:00 12/27/19 20:59 11/19/19 09:22 Lactulose (Cephulac) 10 gm THREE TIMES A DAY ORAL 11/16/19 18:00 12/13/19 12:59 11/19/19 09:21 Linezolid (Zyvox) 600 mg EVERY 12 HOURS ORAL 11/16/19 21:00 11/20/19 23:59 11/19/19 09:21 Multivitamins (Multivitamins) 1 tab DAILY ORAL 11/17/19 09:00 12/08/19 08:59 11/19/19 09:21 Piperacillin Sod/ Tazobactam Sod 3.375 gm/Sodium Chloride 110 ml @ 27.5 mls/hr EVERY 8 HOURS IVPB 11/16/19 22:00 11/21/19 21:59 11/19/19 05:43 Polyethylene Glycol (Miralax) 17 gm BEDTIME ORAL 11/16/19 21:00 12/13/19 20:59 11/16/19 21:03 Jenna Briseno M.D. November 19, 2019 13:41
--- NOTE | 2019-11-19 13:49 | Nephrology Progress Note ---
Assessment/Plan Problem List: (1) Renal failure (2) Electrolyte imbalance (3) Pneumonia due to COVID-19 virus (4) UTI (urinary tract infection) (5) Diabetes Assessment Renal parameters suggest dehydration and free water deficit, and also effect of Lasix use in the past Hypernatremia, Azotemia, high uric acid COVID positive pneumonia UTI Diabetes mellitus Hypertension History of CVA Allergy to Bactrim long-term resident Plan Continue per current treatment plan Abnormal electrolytes improving 500 cc of D5W bolus for slightly high serum sodium as needed Monitor electrolytes and renal parameters Continue per consultants Per orders Subjective ROS Limited/Unobtainable: No Constitutional: Reports: malaise, weakness Objective Objective Last 24 Hour Vital Signs Date Time Temp Pulse Resp B/P (MAP) Pulse Ox O2 Delivery O2 Flow Rate FiO2 11/19/19 12:00 101.7 118 20 142/68 (92) 98 11/19/19 09:51 100.1 11/19/19 09:00 Nasal Cannula 2.0 11/19/19 08:00 100.9 124 20 123/76 (92) 98 11/19/19 04:00 100.0 107 20 116/65 (82) 93 11/19/19 00:00 101.7 113 22 128/76 (93) 93 11/18/19 21:00 Nasal Cannula 2.0 11/18/19 20:00 100.4 111 23 121/61 (81) 95 11/18/19 16:00 101.8 124 20 118/68 (85) 98 Intake and Output 11/18/19 11/19/19 19:00 07:00 # Voids 3 2 # Bowel Movements 2 Laboratory Tests 11/19/19 05:45: White Blood Count 10.8, Red Blood Count 4.12L, Hemoglobin 12.5, Hematocrit 36.9L , Mean Corpuscular Volume 90, Mean Corpuscular Hemoglobin 30.3, Mean Corpuscular Hemoglobin Concent 33.8, Red Cell Distribution Width 13.9, Platelet Count 347, Mean Platelet Volume 5.1L, Neutrophils (%) (Auto) 69.6, Lymphocytes ( %) (Auto) 18.6L, Monocytes (%) (Auto) 9.2, Eosinophils (%) (Auto) 2.1, Basophils (%) (Auto) 0.5, Sodium Level 149H, Potassium Level 3.9, Chloride Level 114H, Carbon Dioxide Level 23, Anion Gap 12, Blood Urea Nitrogen 15, Creatinine 1.2, Estimat Glomerular Filtration Rate 45.3, Glucose Level 107H, Calcium Level 8.8 Height (Feet): 5 Height (Inches): 3.00 Weight (Pounds): 146 General Appearance: no apparent distress Cardiovascular: tachycardia Abdomen: distended Objective No change Wisam Love MD November 19, 2019 13:49
[2019-11-19 16:00] VITALS: BP 104/81
--- NOTE | 2019-11-19 16:17 | Surgery Progress Note ---
Surgery Progress Note Subjective Symptoms: improved, tolerating diet, voiding well, passing flatus, BM, pain decreased Objective Last 24 Hour Vital Signs Date Time Temp Pulse Resp B/P (MAP) Pulse Ox O2 Delivery O2 Flow Rate FiO2 11/19/19 12:00 101.7 118 20 142/68 (92) 98 11/19/19 09:51 100.1 11/19/19 09:00 Nasal Cannula 2.0 11/19/19 08:00 100.9 124 20 123/76 (92) 98 11/19/19 04:00 100.0 107 20 116/65 (82) 93 11/19/19 00:00 101.7 113 22 128/76 (93) 93 11/18/19 21:00 Nasal Cannula 2.0 11/18/19 20:00 100.4 111 23 121/61 (81) 95 I&O Intake and Output 11/18/19 11/19/19 19:00 07:00 # Voids 3 2 # Bowel Movements 2 Dressing: dry Wound: clean Cardiovascular: RSR Respiratory: clear Abdomen: soft, non-tender, present bowel sounds Extremities: no edema, no tenderness, no cyanosis Laboratory Tests Test 11/19/19 05:45 White Blood Count 10.8 K/UL (4.8-10.8) Red Blood Count 4.12 M/UL (4.20-5.40) L Hemoglobin 12.5 G/DL (12.0-16.0) Hematocrit 36.9 % (37.0-47.0) L Mean Corpuscular Volume 90 FL (80-99) Mean Corpuscular Hemoglobin 30.3 PG (27.0-31.0) Mean Corpuscular Hemoglobin Concent 33.8 G/DL (32.0-36.0) Red Cell Distribution Width 13.9 % (11.6-14.8) Platelet Count 347 K/UL (150-450) Mean Platelet Volume 5.1 FL (6.5-10.1) L Neutrophils (%) (Auto) 69.6 % (45.0-75.0) Lymphocytes (%) (Auto) 18.6 % (20.0-45.0) L Monocytes (%) (Auto) 9.2 % (1.0-10.0) Eosinophils (%) (Auto) 2.1 % (0.0-3.0) Basophils (%) (Auto) 0.5 % (0.0-2.0) Sodium Level 149 MMOL/L (136-145) H Potassium Level 3.9 MMOL/L (3.5-5.1) Chloride Level 114 MMOL/L (98-107) H Carbon Dioxide Level 23 MMOL/L (21-32) Anion Gap 12 mmol/L (5-15) Blood Urea Nitrogen 15 mg/dL (7-18) Creatinine 1.2 MG/DL (0.55-1.30) Estimat Glomerular Filtration Rate 45.3 mL/min (>60) Glucose Level 107 MG/DL (74-106) H Calcium Level 8.8 MG/DL (8.5-10.1) Plan Problems: (1) Hypoxia Assessment & Plan: supplemental O2 monitor closely (2) UTI (urinary tract infection) (3) Suspected 2019 novel coronavirus infection (4) Pneumonia due to COVID-19 virus Assessment & Plan: The heart is borderline enlarged. There are bilateral interstitial opacities diffusely. No definite focal airspace consolidation. The pleural spaces are clear. Impression: Borderline cardiomegaly. Bilateral interstitial disease. This is nonspecific, could indicate infiltrates, edema, among other possibilities on Non rebreather can desaturate may consider steroids (5) Fever (6) Anemia (7) Confusion (8) Diabetes (9) Renal failure (10) Malnutrition Assessment & Plan: DAILY ESTIMATED NEEDS: Needs based on Wound, DM/ 53kg abw 25-30 kcals/kg 4966-4991 total kcals 1.25-1.5 g protein/kg 66-79 g total protein 25-30 mL/kg 1414-2481 total fluid mLs NUTRITION DIAGNOSIS: * Increased kcal/prot intake needs R/T wound healing as evidenced by admitted w/ DTPI wound @ L ischium, non-blanching erythema at cleft of buttocks. * Altered nutrition related lab values R/T diabetes as evidenced by elev POC glu (174, 102, 151, 123, now improved), on NISS. CURRENT DIET:REGULAR PO DIET RECOMMENDATIONS: CCHO med/ texture as tolerated or per SYSTEMATIC THEOLOGY PROFESSOR ADDITIONAL RECOMMENDATIONS: * Per SNF: HT=61" [id number] * Wound healing: add MVI x 1, Vit C 500mg QD, SYED BID * sliding scale insulin prn * Texture downgrade for chewing deficit as per RN -> consider pureed, rec SYSTEMATIC THEOLOGY PROFESSOR eval * High kcal supplement w/ meals, will start w/ Ensure Clear and monitor acceptance (250 kcal/ 8g pro each) (11) HTN (hypertension) (12) CVA (cerebral vascular accident) (13) Decubitus skin ulcer Assessment & Plan: Pt presented on admission with DTPI L ischium. Base of wound is purple, indurated. An area of hyperpigmentation noted distally but in close to wound bed. Non-blanching erythema cleft of buttocks. Hyperpigmentation from previous wound noted to R ischium. Within area of hyperpigmentation an area of non-blanchable erythema noted. No other skin concerns noted. fortunately DTI improving with close care and monitoring nutritional improvement necessary still as abl now 2.3 cont diet push intake will monitor Tx.Plan: Apply Moisture Barrier Paste to Sacrum. Cover with Optifoam drsg. Change every 3 days and prn. Apply Moisture Barrier Paste to R and L Ischium. Cover each area with Optifoam drsg. Change every 3 days and prn. Apply Cavilon Skin Barrier to both heels. Cover each heel with Optifoam drsg. Change every 7 days and prn. Reposition at least every 2hours or as tolerated. Off-load heels with Pillow. DAILY ESTIMATED NEEDS: Needs based on Wound, DM/ 53kg abw 25-30 kcals/kg 6746-9592 total kcals 1.25-1.5 g protein/kg 66-79 g total protein 25-30 mL/kg 8191-5720 total fluid mLs NUTRITION DIAGNOSIS: * Increased kcal/prot intake needs R/T wound healing as evidenced by admitted w/ DTPI wound @ L ischium, non-blanching erythema at cleft of buttocks. * Altered nutrition related lab values R/T diabetes as evidenced by elev POC glu (174, 102, 151, 123), on NISS. CURRENT DIET:REGULAR PO DIET RECOMMENDATIONS: CCHO med/ texture as tolerated or per SYSTEMATIC THEOLOGY PROFESSOR ADDITIONAL RECOMMENDATIONS: * Per SNF: HT=61" [id number] * Wound healing: add MVI x 1, Vit C 500mg QD add Syed BID * Texture downgrade for chewing deficit as per RN -> consider pureed * Glucerna x 1 with variable intake (220kcal/10g prot each) Humble Sewell November 19, 2019 16:17
--- NOTE | 2019-11-19 16:57 | Pulmonology Progress Note ---
Assessment/Plan Assessment/Plan IMPRESSION: 1. UTI. 2. Hypoxemia. Improving 3. Hypertension. 4. Diabetes mellitus. 5. Previous CVA. 6. Cognitive impairment. 7. longterm resident. 8. Bactrim allergy. 9. COVID 19 positive DISCUSSION: Continue oxygen and pulmonary hygiene. I will follow as bisque brusher. SaO2 95% on 2L/min Contine med surg Follow up CXR is better Woody Bradley M.D. Subjective ROS Limited/Unobtainable: No Interval Events: Now on 2L/min O2; none new Constitutional: Reports: no symptoms HEENT: Repors: no symptoms Respiratory: Reports: no symptoms Cardiovascular: Reports: no symptoms Gastrointestinal/Abdominal: Reports: no symptoms Allergies: Coded Allergies: SULFAMETHOXAZOLE (Verified Allergy, Unknown, 11/03/19) TRIMETHOPRIM (Verified Allergy, Unknown, 11/03/19) All Systems: reviewed and negative except above Objective Last 24 Hour Vital Signs Date Time Temp Pulse Resp B/P (MAP) Pulse Ox O2 Delivery O2 Flow Rate FiO2 11/19/19 12:00 101.7 118 20 142/68 (92) 98 11/19/19 09:51 100.1 11/19/19 09:00 Nasal Cannula 2.0 11/19/19 08:00 100.9 124 20 123/76 (92) 98 11/19/19 04:00 100.0 107 20 116/65 (82) 93 11/19/19 00:00 101.7 113 22 128/76 (93) 93 11/18/19 21:00 Nasal Cannula 2.0 11/18/19 20:00 100.4 111 23 121/61 (81) 95 Intake and Output 11/18/19 11/19/19 19:00 07:00 # Voids 3 2 # Bowel Movements 2 General Appearance: no acute distress HEENT: mucous membranes moist Respiratory/Chest: chest wall non-tender, decreased breath sounds Cardiovascular: normal peripheral pulses Abdomen: normal bowel sounds Extremities: no cyanosis Neurologic/Psychiatric: alert, responsive Laboratory Tests 11/19/19 05:45: White Blood Count 10.8, Red Blood Count 4.12L, Hemoglobin 12.5, Hematocrit 36.9L , Mean Corpuscular Volume 90, Mean Corpuscular Hemoglobin 30.3, Mean Corpuscular Hemoglobin Concent 33.8, Red Cell Distribution Width 13.9, Platelet Count 347, Mean Platelet Volume 5.1L, Neutrophils (%) (Auto) 69.6, Lymphocytes ( %) (Auto) 18.6L, Monocytes (%) (Auto) 9.2, Eosinophils (%) (Auto) 2.1, Basophils (%) (Auto) 0.5, Sodium Level 149H, Potassium Level 3.9, Chloride Level 114H, Carbon Dioxide Level 23, Anion Gap 12, Blood Urea Nitrogen 15, Creatinine 1.2, Estimat Glomerular Filtration Rate 45.3, Glucose Level 107H, Calcium Level 8.8 Current Medications Medications (Trade) Dose Ordered Sig/Maryam Route PRN Reason Start Time Stop Time Status Last Admin Dose Admin Acetaminophen (Tylenol) 650 mg Q6H PRN ORAL MILD PAIN/TEMP >100.5 11/16/19 16:35 12/16/19 16:34 11/19/19 16:06 Ascorbic Acid (Vitamin C) 500 mg DAILY ORAL 11/17/19 09:00 12/08/19 08:59 11/19/19 09:21 Aspirin (Ecotrin) 81 mg DAILY ORAL 11/17/19 09:00 12/20/19 08:59 11/19/19 09:25 Dextrose (Dextrose 50%) 25 ml Q30M PRN IV Hypoglycemia 11/16/19 16:45 02/02/20 10:44 Dextrose (Dextrose 50%) 50 ml Q30M PRN IV Hypoglycemia 11/16/19 16:45 02/02/20 10:44 Docusate Sodium (Colace) 100 mg TIDPRN PRN ORAL Constipation 11/16/19 16:35 12/16/19 16:34 Heparin Sodium (Porcine) (Heparin 5000 units/ml) 5,000 units EVERY 12 HOURS SUBQ 11/16/19 21:00 12/27/19 20:59 11/19/19 09:22 Lactulose (Cephulac) 10 gm THREE TIMES A DAY ORAL 11/16/19 18:00 12/13/19 12:59 11/19/19 13:57 Linezolid (Zyvox) 600 mg EVERY 12 HOURS ORAL 11/16/19 21:00 11/20/19 23:59 11/19/19 09:21 Multivitamins (Multivitamins) 1 tab DAILY ORAL 11/17/19 09:00 12/08/19 08:59 11/19/19 09:21 Piperacillin Sod/ Tazobactam Sod 3.375 gm/Sodium Chloride 110 ml @ 27.5 mls/hr EVERY 8 HOURS IVPB 11/16/19 22:00 11/21/19 21:59 11/19/19 14:00 Polyethylene Glycol (Miralax) 17 gm BEDTIME ORAL 11/16/19 21:00 12/13/19 20:59 11/16/19 21:03 Woody Bradley MD November 19, 2019 16:57
[2019-11-19] MEDS ORDERED: DiphenhydrAMINE 50mg/ml Inj IVP SCH (17:00)
[2019-11-19 20:00] VITALS: BP 126/81
[2019-11-19] MEDS: Miralax 17gm pkt ORAL SCH (20:31)
[2019-11-20] VITALS: BP 130/76
[2019-11-20 04:00] VITALS: BP 114/73
[2019-11-20 07:07] LABS: BASOPHILS % (AUTO) 0.8 % (0.0-2.0); EOSINOPHILS % (AUTO) 2.8 % (0.0-3.0); HEMATOCRIT 36.6 % (37.0-47.0); HEMOGLOBIN 12.1 G/DL (12.0-16.0); LYMPHOCYTES % (AUTO) 33.1 % (20.0-45.0); MEAN CORPUSCULAR VOLUME 90 FL (80-99); MONOCYTES % (AUTO) 9.5 % (1.0-10.0); NEUTROPHILS % (AUTO) 53.8 % (45.0-75.0); PLATELET COUNT 312 K/UL (150-450); RED BLOOD COUNT 4.07 M/UL (4.20-5.40); RED CELL DISTRIBUTION WIDTH 13.8 % (11.6-14.8); WHITE BLOOD COUNT 12.6 K/UL (4.8-10.8)
[2019-11-20 07:36] LABS: ANION GAP 11 mmol/L (5-15); BLOOD UREA NITROGEN 20 mg/dL (7-18); CALCIUM 8.2 MG/DL (8.5-10.1); CARBON DIOXIDE 23 MMOL/L (21-32); CHLORIDE 115 MMOL/L (98-107); CREATININE 1.1 MG/DL (0.55-1.30); FERRITIN 180 NG/ML (8-388); POTASSIUM 3.7 MMOL/L (3.5-5.1); SODIUM 149 MMOL/L (136-145)
[2019-11-20 08:00] VITALS: BP 132/82
[2019-11-20] MEDS: Ascorbic Acid 500mg tab ORAL SCH (08:16)
[2019-11-20] MEDS: Lactulose 10gm/15ml UDC ORAL SCH ×3 (08:16→17:29)
[2019-11-20] MEDS: Aspirin EC 81mg tab ORAL SCH (08:16)
[2019-11-20] MEDS: Heparin 5000 units/ml inj SUBQ SCH ×2 (08:17→20:16)
--- NOTE | 2019-11-20 09:04 | General Progress Note ---
Assessment/Plan Problem List: (1) Malnutrition ICD Codes: E46 - Unspecified protein-calorie malnutrition SNOMED: 71120431 (2) Anemia ICD Codes: D64.9 - Anemia, unspecified SNOMED: 584828816 (3) Fever ICD Codes: R50.9 - Fever, unspecified SNOMED: 398476225 (4) CVA (cerebral vascular accident) ICD Codes: I63.9 - Cerebral infarction, unspecified SNOMED: 928139748 (5) HTN (hypertension) ICD Codes: I10 - Essential (primary) hypertension SNOMED: 00133341 (6) Diabetes ICD Codes: E11.9 - Type 2 diabetes mellitus without complications SNOMED: 40281619 (7) Renal failure ICD Codes: N19 - Unspecified kidney failure SNOMED: 86108728 (8) Confusion ICD Codes: R41.0 - Disorientation, unspecified SNOMED: 506257822 (9) Hypoxia ICD Codes: R09.02 - Hypoxemia SNOMED: 575680247 (10) Suspected 2019 novel coronavirus infection ICD Codes: R68.89 - Other general symptoms and signs SNOMED: 105333196 (11) UTI (urinary tract infection) ICD Codes: N39.0 - Urinary tract infection, site not specified SNOMED: 80742032 Status: unchanged Assessment/Plan: o2 pulm tx abx bp bs control cbc bmp am Subjective Constitutional: Reports: weakness Allergies: Coded Allergies: SULFAMETHOXAZOLE (Verified Allergy, Unknown, 11/03/19) TRIMETHOPRIM (Verified Allergy, Unknown, 11/03/19) All Systems: reviewed and negative except above Subjective o2 nc calm in bed Objective Last 24 Hour Vital Signs Date Time Temp Pulse Resp B/P (MAP) Pulse Ox O2 Delivery O2 Flow Rate FiO2 11/20/19 04:00 99.3 104 18 114/73 (87) 94 11/20/19 00:00 99.7 111 20 130/76 (94) 95 11/19/19 21:00 Nasal Cannula 2.0 11/19/19 20:00 101.4 121 19 126/81 (96) 95 11/19/19 16:36 101.7 11/19/19 16:00 102.2 114 20 104/81 (89) 93 11/19/19 12:00 101.7 118 20 142/68 (92) 98 Intake and Output 11/19/19 11/20/19 19:00 07:00 Intake Total 651.0 ml Balance 651.0 ml Intake Oral 596 ml IV Total 55.0 ml # Voids 2 3 # Bowel Movements 1 Laboratory Tests 11/20/19 04:00: Arterial Blood pH 7.418, Arterial Blood Partial Pressure CO2 37.0, Arterial Blood Partial Pressure O2 101.9H, Arterial Blood HCO3 23.4, Arterial Blood Oxygen Saturation 97.5, Arterial Blood Base Excess -0.8, Faheem Test Positive 11/20/19 05:30: White Blood Count 12.6H, Red Blood Count 4.07L, Hemoglobin 12.1, Hematocrit 36.6L, Mean Corpuscular Volume 90, Mean Corpuscular Hemoglobin 29.6, Mean Corpuscular Hemoglobin Concent 33.0, Red Cell Distribution Width 13.8, Platelet Count 312, Mean Platelet Volume 5.0L, Neutrophils (%) (Auto) 53.8, Lymphocytes ( %) (Auto) 33.1, Monocytes (%) (Auto) 9.5, Eosinophils (%) (Auto) 2.8, Basophils (%) (Auto) 0.8, Sodium Level 149H, Potassium Level 3.7, Chloride Level 115H, Carbon Dioxide Level 23, Anion Gap 11, Blood Urea Nitrogen 20H, Creatinine 1.1, Estimat Glomerular Filtration Rate 50.2, Glucose Level 121H, Calcium Level 8.2L , Ferritin 180, C-Reactive Protein, Quantitative 5.0H Height (Feet): 5 Height (Inches): 3.00 Weight (Pounds): 146 General Appearance: lethargic EENT: normal ENT inspection Neck: normal alignment Cardiovascular: normal rate, regular rhythm Respiratory/Chest: no respiratory distress, no accessory muscle use Extremities: normal inspection Skin: normal pigmentation CabreraTrevor StephPatricia November 20, 2019 09:04
--- NOTE | 2019-11-20 09:06 | General Progress Note ---
Assessment/Plan Problem List: (1) Electrolyte imbalance ICD Codes: E87.8 - Other disorders of electrolyte and fluid balance, not elsewhere classified SNOMED: 605467568 (2) Decubitus skin ulcer ICD Codes: L89.90 - Pressure ulcer of unspecified site, unspecified stage SNOMED: 911255569 (3) HTN (hypertension) ICD Codes: I10 - Essential (primary) hypertension SNOMED: 56752869 (4) CVA (cerebral vascular accident) ICD Codes: I63.9 - Cerebral infarction, unspecified SNOMED: 922011415 (5) Malnutrition ICD Codes: E46 - Unspecified protein-calorie malnutrition SNOMED: 10647123 (6) Diabetes ICD Codes: E11.9 - Type 2 diabetes mellitus without complications SNOMED: 66401625 (7) Anemia ICD Codes: D64.9 - Anemia, unspecified SNOMED: 510333909 (8) Pneumonia due to COVID-19 virus ICD Codes: U07.1 - COVID-19; J12.89 - Other viral pneumonia SNOMED: 713432761, 337449962 (9) UTI (urinary tract infection) ICD Codes: N39.0 - Urinary tract infection, site not specified SNOMED: 32047481 Status: unchanged Assessment/Plan: bowel regimen tyroid labs>>> reviewed has had multiple BM will fu Subjective ROS Limited/Unobtainable: No Allergies: Coded Allergies: SULFAMETHOXAZOLE (Verified Allergy, Unknown, 11/03/19) TRIMETHOPRIM (Verified Allergy, Unknown, 11/03/19) Objective Last 24 Hour Vital Signs Date Time Temp Pulse Resp B/P (MAP) Pulse Ox O2 Delivery O2 Flow Rate FiO2 11/20/19 04:00 99.3 104 18 114/73 (87) 94 11/20/19 00:00 99.7 111 20 130/76 (94) 95 11/19/19 21:00 Nasal Cannula 2.0 11/19/19 20:00 101.4 121 19 126/81 (96) 95 11/19/19 16:36 101.7 11/19/19 16:00 102.2 114 20 104/81 (89) 93 11/19/19 12:00 101.7 118 20 142/68 (92) 98 Intake and Output 11/19/19 11/20/19 19:00 07:00 Intake Total 651.0 ml Balance 651.0 ml Intake Oral 596 ml IV Total 55.0 ml # Voids 2 3 # Bowel Movements 1 Laboratory Tests 11/20/19 04:00: Arterial Blood pH 7.418, Arterial Blood Partial Pressure CO2 37.0, Arterial Blood Partial Pressure O2 101.9H, Arterial Blood HCO3 23.4, Arterial Blood Oxygen Saturation 97.5, Arterial Blood Base Excess -0.8, Faheem Test Positive 11/20/19 05:30: White Blood Count 12.6H, Red Blood Count 4.07L, Hemoglobin 12.1, Hematocrit 36.6L, Mean Corpuscular Volume 90, Mean Corpuscular Hemoglobin 29.6, Mean Corpuscular Hemoglobin Concent 33.0, Red Cell Distribution Width 13.8, Platelet Count 312, Mean Platelet Volume 5.0L, Neutrophils (%) (Auto) 53.8, Lymphocytes ( %) (Auto) 33.1, Monocytes (%) (Auto) 9.5, Eosinophils (%) (Auto) 2.8, Basophils (%) (Auto) 0.8, Sodium Level 149H, Potassium Level 3.7, Chloride Level 115H, Carbon Dioxide Level 23, Anion Gap 11, Blood Urea Nitrogen 20H, Creatinine 1.1, Estimat Glomerular Filtration Rate 50.2, Glucose Level 121H, Calcium Level 8.2L , Ferritin 180, C-Reactive Protein, Quantitative 5.0H Height (Feet): 5 Height (Inches): 3.00 Weight (Pounds): 146 General Appearance: no apparent distress EENT: normal ENT inspection Neck: supple Cardiovascular: normal rate Respiratory/Chest: decreased breath sounds Abdomen: normal bowel sounds, non tender, soft Extremities: non-tender Luke Noe MD November 20, 2019 09:06
--- NOTE | 2019-11-20 10:16 | Diagnostic Imaging Report ---
Indication: Cough Technique: One view of the chest Comparison: 11/17/2019 Findings: Bilateral diffuse interstitial and airspace disease appears slightly improved as compared to the prior exam but still extensive heart size is upper limits normal. Pleural spaces are clear. Impression: Slightly improved but persistent and still extensive bilateral infiltrates, since prior exam of 3 days earlier
--- NOTE | 2019-11-20 11:10 | Pulmonology Progress Note ---
Assessment/Plan Assessment/Plan IMPRESSION: 1. UTI. 2. Hypoxemia. Improving 3. Hypertension. 4. Diabetes mellitus. 5. Previous CVA. 6. Cognitive impairment. 7. snf resident. 8. Bactrim allergy. 9. COVID 19 positive DISCUSSION: Continue oxygen and pulmonary hygiene. I will follow as fitness assistant. SaO2 95% on 2L/min Contine med surg Follow up CXR is better Woody Bradley M.D. Subjective ROS Limited/Unobtainable: No Interval Events: Now on 2L/min O2; none new Constitutional: Reports: no symptoms HEENT: Repors: no symptoms Respiratory: Reports: no symptoms Cardiovascular: Reports: no symptoms Gastrointestinal/Abdominal: Reports: no symptoms Allergies: Coded Allergies: SULFAMETHOXAZOLE (Verified Allergy, Unknown, 11/03/19) TRIMETHOPRIM (Verified Allergy, Unknown, 11/03/19) All Systems: reviewed and negative except above Objective Last 24 Hour Vital Signs Date Time Temp Pulse Resp B/P (MAP) Pulse Ox O2 Delivery O2 Flow Rate FiO2 11/20/19 09:00 Nasal Cannula 2.0 11/20/19 08:00 99.5 98 18 132/82 (99) 97 11/20/19 04:00 99.3 104 18 114/73 (87) 94 11/20/19 00:00 99.7 111 20 130/76 (94) 95 11/19/19 21:00 Nasal Cannula 2.0 11/19/19 20:00 101.4 121 19 126/81 (96) 95 11/19/19 16:36 101.7 11/19/19 16:00 102.2 114 20 104/81 (89) 93 11/19/19 12:00 101.7 118 20 142/68 (92) 98 Intake and Output 11/19/19 11/20/19 19:00 07:00 Intake Total 651.0 ml Balance 651.0 ml Intake Oral 596 ml IV Total 55.0 ml # Voids 2 3 # Bowel Movements 1 General Appearance: no acute distress HEENT: mucous membranes moist Respiratory/Chest: chest wall non-tender, decreased breath sounds Cardiovascular: normal peripheral pulses Abdomen: normal bowel sounds Extremities: no cyanosis Neurologic/Psychiatric: alert, responsive Laboratory Tests 11/20/19 04:00: Arterial Blood pH 7.418, Arterial Blood Partial Pressure CO2 37.0, Arterial Blood Partial Pressure O2 101.9H, Arterial Blood HCO3 23.4, Arterial Blood Oxygen Saturation 97.5, Arterial Blood Base Excess -0.8, Faheem Test Positive 11/20/19 05:30: White Blood Count 12.6H, Red Blood Count 4.07L, Hemoglobin 12.1, Hematocrit 36.6L, Mean Corpuscular Volume 90, Mean Corpuscular Hemoglobin 29.6, Mean Corpuscular Hemoglobin Concent 33.0, Red Cell Distribution Width 13.8, Platelet Count 312, Mean Platelet Volume 5.0L, Neutrophils (%) (Auto) 53.8, Lymphocytes ( %) (Auto) 33.1, Monocytes (%) (Auto) 9.5, Eosinophils (%) (Auto) 2.8, Basophils (%) (Auto) 0.8, Sodium Level 149H, Potassium Level 3.7, Chloride Level 115H, Carbon Dioxide Level 23, Anion Gap 11, Blood Urea Nitrogen 20H, Creatinine 1.1, Estimat Glomerular Filtration Rate 50.2, Glucose Level 121H, Calcium Level 8.2L , Ferritin 180, C-Reactive Protein, Quantitative 5.0H Current Medications Medications (Trade) Dose Ordered Sig/Maryam Route PRN Reason Start Time Stop Time Status Last Admin Dose Admin Acetaminophen (Tylenol) 650 mg Q4H PRN ORAL MILD PAIN/TEMP >100.5 11/19/19 17:15 12/19/19 17:14 11/19/19 20:39 Ascorbic Acid (Vitamin C) 500 mg DAILY ORAL 11/17/19 09:00 12/08/19 08:59 11/20/19 08:16 Aspirin (Ecotrin) 81 mg DAILY ORAL 11/17/19 09:00 12/20/19 08:59 11/20/19 08:16 Dextrose (Dextrose 50%) 25 ml Q30M PRN IV Hypoglycemia 11/16/19 16:45 02/02/20 10:44 Dextrose (Dextrose 50%) 50 ml Q30M PRN IV Hypoglycemia 11/16/19 16:45 02/02/20 10:44 Docusate Sodium (Colace) 100 mg TIDPRN PRN ORAL Constipation 11/16/19 16:35 12/16/19 16:34 Heparin Sodium (Porcine) (Heparin 5000 units/ml) 5,000 units EVERY 12 HOURS SUBQ 11/16/19 21:00 12/27/19 20:59 11/20/19 08:17 Lactulose (Cephulac) 10 gm THREE TIMES A DAY ORAL 11/16/19 18:00 12/13/19 12:59 11/20/19 08:16 Linezolid (Zyvox) 600 mg EVERY 12 HOURS ORAL 11/16/19 21:00 11/20/19 23:59 11/20/19 08:16 Multivitamins (Multivitamins) 1 tab DAILY ORAL 11/17/19 09:00 12/08/19 08:59 11/20/19 08:16 Polyethylene Glycol (Miralax) 17 gm BEDTIME ORAL 11/16/19 21:00 12/13/19 20:59 11/16/19 21:03 Woody Bradley MD November 20, 2019 11:10
[2019-11-20 12:00] VITALS: BP 136/89
--- NOTE | 2019-11-20 13:08 | Nephrology Progress Note ---
Assessment/Plan Problem List: (1) Renal failure (2) Electrolyte imbalance (3) Pneumonia due to COVID-19 virus (4) UTI (urinary tract infection) (5) Diabetes Assessment Renal parameters suggest dehydration and free water deficit, and also effect of Lasix use in the past Hypernatremia, Azotemia, high uric acid COVID positive pneumonia UTI Diabetes mellitus Hypertension History of CVA Allergy to Bactrim half-way resident Plan Continue per current treatment plan Abnormal electrolytes improving 500 cc of D5W bolus for slightly high serum sodium as needed Monitor electrolytes and renal parameters Continue per consultants Per orders Subjective ROS Limited/Unobtainable: No Objective Objective Last 24 Hour Vital Signs Date Time Temp Pulse Resp B/P (MAP) Pulse Ox O2 Delivery O2 Flow Rate FiO2 11/20/19 09:00 Nasal Cannula 2.0 11/20/19 08:00 99.5 98 18 132/82 (99) 97 11/20/19 04:00 99.3 104 18 114/73 (87) 94 11/20/19 00:00 99.7 111 20 130/76 (94) 95 11/19/19 21:00 Nasal Cannula 2.0 11/19/19 20:00 101.4 121 19 126/81 (96) 95 11/19/19 16:36 101.7 11/19/19 16:00 102.2 114 20 104/81 (89) 93 Intake and Output 11/19/19 11/20/19 19:00 07:00 Intake Total 651.0 ml Balance 651.0 ml Intake Oral 596 ml IV Total 55.0 ml # Voids 2 3 # Bowel Movements 1 Laboratory Tests 11/20/19 04:00: Arterial Blood pH 7.418, Arterial Blood Partial Pressure CO2 37.0, Arterial Blood Partial Pressure O2 101.9H, Arterial Blood HCO3 23.4, Arterial Blood Oxygen Saturation 97.5, Arterial Blood Base Excess -0.8, Faheem Test Positive 11/20/19 05:30: White Blood Count 12.6H, Red Blood Count 4.07L, Hemoglobin 12.1, Hematocrit 36.6L, Mean Corpuscular Volume 90, Mean Corpuscular Hemoglobin 29.6, Mean Corpuscular Hemoglobin Concent 33.0, Red Cell Distribution Width 13.8, Platelet Count 312, Mean Platelet Volume 5.0L, Neutrophils (%) (Auto) 53.8, Lymphocytes ( %) (Auto) 33.1, Monocytes (%) (Auto) 9.5, Eosinophils (%) (Auto) 2.8, Basophils (%) (Auto) 0.8, Sodium Level 149H, Potassium Level 3.7, Chloride Level 115H, Carbon Dioxide Level 23, Anion Gap 11, Blood Urea Nitrogen 20H, Creatinine 1.1, Estimat Glomerular Filtration Rate 50.2, Glucose Level 121H, Calcium Level 8.2L , Ferritin 180, C-Reactive Protein, Quantitative 5.0H Height (Feet): 5 Height (Inches): 3.00 Weight (Pounds): 146 General Appearance: no apparent distress, lethargic Cardiovascular: tachycardia Respiratory/Chest: decreased breath sounds Abdomen: distended Objective No change Wisam Love MD November 20, 2019 13:08
--- NOTE | 2019-11-20 15:09 | Surgery Progress Note ---
Surgery Progress Note Subjective Additional Comments comfortable stable lab snoted Objective Last 24 Hour Vital Signs Date Time Temp Pulse Resp B/P (MAP) Pulse Ox O2 Delivery O2 Flow Rate FiO2 11/20/19 12:00 101.2 75 20 136/89 (105) 95 11/20/19 11:46 101.2 11/20/19 09:00 Nasal Cannula 2.0 11/20/19 08:00 99.5 98 18 132/82 (99) 97 11/20/19 04:00 99.3 104 18 114/73 (87) 94 11/20/19 00:00 99.7 111 20 130/76 (94) 95 11/19/19 21:00 Nasal Cannula 2.0 11/19/19 20:00 101.4 121 19 126/81 (96) 95 11/19/19 16:36 101.7 11/19/19 16:00 102.2 114 20 104/81 (89) 93 I&O Intake and Output 11/19/19 11/20/19 19:00 07:00 Intake Total 651.0 ml Balance 651.0 ml Intake Oral 596 ml IV Total 55.0 ml # Voids 2 3 # Bowel Movements 1 Dressing: saturated Wound: clean Cardiovascular: RSR Respiratory: clear, decreased breath sounds Abdomen: soft, non-tender, present bowel sounds Extremities: no cyanosis Laboratory Tests Test 11/20/19 04:00 11/20/19 05:30 Arterial Blood pH 7.418 (7.350-7.450) Arterial Blood Partial Pressure CO2 37.0 mmHg (35.0-45.0) Arterial Blood Partial Pressure O2 101.9 mmHg (75.0-100.0) H Arterial Blood HCO3 23.4 mmol/L (22.0-26.0) Arterial Blood Oxygen Saturation 97.5 % (95-100) Arterial Blood Base Excess -0.8 (-2-2) Faheem Test Positive White Blood Count 12.6 K/UL (4.8-10.8) H Red Blood Count 4.07 M/UL (4.20-5.40) L Hemoglobin 12.1 G/DL (12.0-16.0) Hematocrit 36.6 % (37.0-47.0) L Mean Corpuscular Volume 90 FL (80-99) Mean Corpuscular Hemoglobin 29.6 PG (27.0-31.0) Mean Corpuscular Hemoglobin Concent 33.0 G/DL (32.0-36.0) Red Cell Distribution Width 13.8 % (11.6-14.8) Platelet Count 312 K/UL (150-450) Mean Platelet Volume 5.0 FL (6.5-10.1) L Neutrophils (%) (Auto) 53.8 % (45.0-75.0) Lymphocytes (%) (Auto) 33.1 % (20.0-45.0) Monocytes (%) (Auto) 9.5 % (1.0-10.0) Eosinophils (%) (Auto) 2.8 % (0.0-3.0) Basophils (%) (Auto) 0.8 % (0.0-2.0) Sodium Level 149 MMOL/L (136-145) H Potassium Level 3.7 MMOL/L (3.5-5.1) Chloride Level 115 MMOL/L (98-107) H Carbon Dioxide Level 23 MMOL/L (21-32) Anion Gap 11 mmol/L (5-15) Blood Urea Nitrogen 20 mg/dL (7-18) H Creatinine 1.1 MG/DL (0.55-1.30) Estimat Glomerular Filtration Rate 50.2 mL/min (>60) Glucose Level 121 MG/DL (74-106) H Calcium Level 8.2 MG/DL (8.5-10.1) L Ferritin 180 NG/ML (8-388) C-Reactive Protein, Quantitative 5.0 mg/dL (0.00-0.90) H Plan Problems: (1) Hypoxia Assessment & Plan: supplemental O2 monitor closely (2) UTI (urinary tract infection) (3) Suspected 2019 novel coronavirus infection (4) Pneumonia due to COVID-19 virus Assessment & Plan: The heart is borderline enlarged. There are bilateral interstitial opacities diffusely. No definite focal airspace consolidation. The pleural spaces are clear. Impression: Borderline cardiomegaly. Bilateral interstitial disease. This is nonspecific, could indicate infiltrates, edema, among other possibilities on Non rebreather can desaturate may consider steroids (5) Fever (6) Anemia (7) Confusion (8) Diabetes (9) Renal failure (10) Malnutrition Assessment & Plan: DAILY ESTIMATED NEEDS: Needs based on Wound, DM/ 53kg abw 25-30 kcals/kg 8617-7300 total kcals 1.25-1.5 g protein/kg 66-79 g total protein 25-30 mL/kg 0293-7491 total fluid mLs NUTRITION DIAGNOSIS: * Increased kcal/prot intake needs R/T wound healing as evidenced by admitted w/ DTPI wound @ L ischium, non-blanching erythema at cleft of buttocks. * Altered nutrition related lab values R/T diabetes as evidenced by elev POC glu (174, 102, 151, 123, now improved), on NISS. CURRENT DIET:REGULAR PO DIET RECOMMENDATIONS: CCHO med/ texture as tolerated or per POLISHER HAND ADDITIONAL RECOMMENDATIONS: * Per SNF: HT=61" SJ=145ujx * Wound healing: add MVI x 1, Vit C 500mg QD, SYED BID * sliding scale insulin prn * Texture downgrade for chewing deficit as per RN -> consider pureed, rec POLISHER HAND eval * High kcal supplement w/ meals, will start w/ Ensure Clear and monitor acceptance (250 kcal/ 8g pro each) (11) HTN (hypertension) (12) CVA (cerebral vascular accident) (13) Decubitus skin ulcer Assessment & Plan: Pt presented on admission with DTPI L ischium. Base of wound is purple, indurated. An area of hyperpigmentation noted distally but in close to wound bed. Non-blanching erythema cleft of buttocks. Hyperpigmentation from previous wound noted to R ischium. Within area of hyperpigmentation an area of non-blanchable erythema noted. No other skin concerns noted. fortunately DTI improving with close care and monitoring nutritional improvement necessary still as abl now 2.3 cont diet push intake will monitor Tx.Plan: Apply Moisture Barrier Paste to Sacrum. Cover with Optifoam drsg. Change every 3 days and prn. Apply Moisture Barrier Paste to R and L Ischium. Cover each area with Optifoam drsg. Change every 3 days and prn. Apply Cavilon Skin Barrier to both heels. Cover each heel with Optifoam drsg. Change every 7 days and prn. Reposition at least every 2hours or as tolerated. Off-load heels with Pillow. DAILY ESTIMATED NEEDS: Needs based on Wound, DM/ 53kg abw 25-30 kcals/kg 6836-0027 total kcals 1.25-1.5 g protein/kg 66-79 g total protein 25-30 mL/kg 9722-5163 total fluid mLs NUTRITION DIAGNOSIS: * Increased kcal/prot intake needs R/T wound healing as evidenced by admitted w/ DTPI wound @ L ischium, non-blanching erythema at cleft of buttocks. * Altered nutrition related lab values R/T diabetes as evidenced by elev POC glu (174, 102, 151, 123), on NISS. CURRENT DIET:REGULAR PO DIET RECOMMENDATIONS: CCHO med/ texture as tolerated or per POLISHER HAND ADDITIONAL RECOMMENDATIONS: * Per SNF: HT=61" EJ=041mvp * Wound healing: add MVI x 1, Vit C 500mg QD add Syed BID * Texture downgrade for chewing deficit as per RN -> consider pureed * Glucerna x 1 with variable intake (220kcal/10g prot each) Humble Sewell November 20, 2019 15:09
[2019-11-20] MEDS ORDERED: Haloperidol 5mg/ml Inj IM PRN (15:45)
[2019-11-20 16:00] VITALS: BP 132/84
--- NOTE | 2019-11-20 17:16 | Infectious Diseases Prog Note ---
Assessment/Plan Assessment/Plan Assessment: Sepsis Fever, recurrent Acute hypoxic respiratory failure- s/p simple mask, sp NRB, now on 2l NC Pnuemonia- 2ry to COVID19 -11/18 CXR: Slightly improved but persistent and still extensive bilateral infiltrates, since prior exam of 3 days earlier -11/16 CXR: Diffuse bilateral airspace opacities are slightly improved. -11/13 CXR: Unchanged, over 2 days, findings as above. -11/08 CXR: Interval worsening bilateral airspace opacities, worse in the right lung. -11/05 CXR: Slight worsening of bilateral right greater than left interstitial and airspace opacities, over 3 days. Most likely pneumonia but pulmonary edema also a possibility -11/02 CXR: Borderline cardiomegaly. Bilateral interstitial disease. This is nonspecific, could indicate infiltrates, edema, among other possibilities SARS-COV2 PCR + -Influenza sc neg -Bcx NTD -Ferritin 243 (11/17),338 (11/13)<568 (11/08)<- 841 (11/06) -CRP 6.7 (11/17)< 12 (11/13)< 7.9(11/10)<-11.2 (11/08) <- 7.1 (11/06) -Tspot neg Mild leukocytosis, SP -11/13 Bcx NTD Probable drug rash 2ry to Zosyn UTI -11/10 u/a wbc olivia, nit neg, leuk +3; ucx 10-20k VRE (S amp) -u/a wbc tnct, nit neg, leuk +3; ucx >100k E.coli (hernandes S), >100k P.mirabilis ( R. Ceftriaxone, bactrim) Elevated LFTs, SP Dm2 HTN CVA SNF resident ([facility]) Plan: - Continue empiric ZYvox #/-10 -Will not start Plaquenil as not recommended by IDSA and NIH guidelines -Will consider steroids if worsening -11/18 SP ZOsyn #6- ?allergic reaction -11/11 SP Cefepime #8 -11/07 SP Azithromycin #5 -11/03 SP Ceftriaxone #2 -f/u cx -Monitor CBC/CMP, temperaturse -Monitor inflammatory markers, CXR -f/u Bcx x2, Sp cx Thank you for consulting [facility]. Will continue to follow along wiht you. Discussed with RN Subjective Allergies: Coded Allergies: SULFAMETHOXAZOLE (Verified Allergy, Unknown, 11/03/19) TRIMETHOPRIM (Verified Allergy, Unknown, 11/03/19) Subjective Tm 101.2 at 2L NC Developed widespread erythematous rash- ZOsyn dc yesterday mild leukocytosis Objective Vital Signs Last 24 Hour Vital Signs Date Time Temp Pulse Resp B/P (MAP) Pulse Ox O2 Delivery O2 Flow Rate FiO2 11/20/19 16:00 100.2 97 17 132/84 (100) 96 11/20/19 12:00 101.2 75 20 136/89 (105) 95 11/20/19 11:46 101.2 11/20/19 09:00 Nasal Cannula 2.0 11/20/19 08:00 99.5 98 18 132/82 (99) 97 11/20/19 04:00 99.3 104 18 114/73 (87) 94 11/20/19 00:00 99.7 111 20 130/76 (94) 95 11/19/19 21:00 Nasal Cannula 2.0 11/19/19 20:00 101.4 121 19 126/81 (96) 95 Height (Feet): 5 Height (Inches): 3.00 Weight (Pounds): 146 Objective not examined to limit covid exposure Laboratory Tests Test 11/20/19 04:00 11/20/19 05:30 Arterial Blood pH 7.418 (7.350-7.450) Arterial Blood Partial Pressure CO2 37.0 mmHg (35.0-45.0) Arterial Blood Partial Pressure O2 101.9 mmHg (75.0-100.0) H Arterial Blood HCO3 23.4 mmol/L (22.0-26.0) Arterial Blood Oxygen Saturation 97.5 % (95-100) Arterial Blood Base Excess -0.8 (-2-2) Faheem Test Positive White Blood Count 12.6 K/UL (4.8-10.8) H Red Blood Count 4.07 M/UL (4.20-5.40) L Hemoglobin 12.1 G/DL (12.0-16.0) Hematocrit 36.6 % (37.0-47.0) L Mean Corpuscular Volume 90 FL (80-99) Mean Corpuscular Hemoglobin 29.6 PG (27.0-31.0) Mean Corpuscular Hemoglobin Concent 33.0 G/DL (32.0-36.0) Red Cell Distribution Width 13.8 % (11.6-14.8) Platelet Count 312 K/UL (150-450) Mean Platelet Volume 5.0 FL (6.5-10.1) L Neutrophils (%) (Auto) 53.8 % (45.0-75.0) Lymphocytes (%) (Auto) 33.1 % (20.0-45.0) Monocytes (%) (Auto) 9.5 % (1.0-10.0) Eosinophils (%) (Auto) 2.8 % (0.0-3.0) Basophils (%) (Auto) 0.8 % (0.0-2.0) Sodium Level 149 MMOL/L (136-145) H Potassium Level 3.7 MMOL/L (3.5-5.1) Chloride Level 115 MMOL/L (98-107) H Carbon Dioxide Level 23 MMOL/L (21-32) Anion Gap 11 mmol/L (5-15) Blood Urea Nitrogen 20 mg/dL (7-18) H Creatinine 1.1 MG/DL (0.55-1.30) Estimat Glomerular Filtration Rate 50.2 mL/min (>60) Glucose Level 121 MG/DL (74-106) H Calcium Level 8.2 MG/DL (8.5-10.1) L Ferritin 180 NG/ML (8-388) C-Reactive Protein, Quantitative 5.0 mg/dL (0.00-0.90) H Current Medications Medications (Trade) Dose Ordered Sig/Maryam Route PRN Reason Start Time Stop Time Status Last Admin Dose Admin Acetaminophen (Tylenol) 650 mg Q4H PRN ORAL MILD PAIN/TEMP >100.5 11/19/19 17:15 12/19/19 17:14 11/20/19 11:16 Ascorbic Acid (Vitamin C) 500 mg DAILY ORAL 11/17/19 09:00 12/08/19 08:59 11/20/19 08:16 Aspirin (Ecotrin) 81 mg DAILY ORAL 11/17/19 09:00 12/20/19 08:59 11/20/19 08:16 Dextrose (Dextrose 50%) 25 ml Q30M PRN IV Hypoglycemia 11/16/19 16:45 02/02/20 10:44 Dextrose (Dextrose 50%) 50 ml Q30M PRN IV Hypoglycemia 11/16/19 16:45 02/02/20 10:44 Diphenhydramine HCl (Benadryl) 50 mg Q6H PRN ORAL Itching 11/20/19 13:55 12/20/19 13:54 Docusate Sodium (Colace) 100 mg TIDPRN PRN ORAL Constipation 11/16/19 16:35 12/16/19 16:34 Haloperidol Lactate (Haldol) 5 mg Q6H PRN IM Agitation 11/20/19 15:45 01/04/20 15:44 Heparin Sodium (Porcine) (Heparin 5000 units/ml) 5,000 units EVERY 12 HOURS SUBQ 11/16/19 21:00 12/27/19 20:59 11/20/19 08:17 Lactulose (Cephulac) 10 gm THREE TIMES A DAY ORAL 11/16/19 18:00 12/13/19 12:59 11/20/19 14:06 Linezolid (Zyvox) 600 mg EVERY 12 HOURS ORAL 11/16/19 21:00 11/20/19 23:59 11/20/19 08:16 Multivitamins (Multivitamins) 1 tab DAILY ORAL 11/17/19 09:00 12/08/19 08:59 11/20/19 08:16 Polyethylene Glycol (Miralax) 17 gm BEDTIME ORAL 11/16/19 21:00 12/13/19 20:59 11/16/19 21:03 Jenna Briseno M.D. November 20, 2019 17:16
[2019-11-20 20:00] VITALS: BP 155/82
[2019-11-20] MEDS: Miralax 17gm pkt ORAL SCH (20:06)
--- NOTE | 2019-11-20 20:16 | Initial Psychiatric Evaluation ---
Psychiatry Consultation Psychiatry Consultation Chief Complaint: Upper Respiratory Illness Allergies: Coded Allergies: SULFAMETHOXAZOLE (Verified Allergy, Unknown, 11/03/19) TRIMETHOPRIM (Verified Allergy, Unknown, 11/03/19) Medication History Scheduled Aspirin* (Aspir 81*), 81 MG ORAL DAILY, (Reported) Docusate Sodium* (Docusate Sodium*), 200 MG ORAL DAILY, (Reported) Multivitamin with Minerals (Multivitamins with Minerals), 1 TAB ORAL DAILY, ( Reported) Objective Data Height (Feet): 5 Height (Inches): 3.00 Weight (Pounds): 146 Anu Hubbard MD November 20, 2019 20:16
[2019-11-21] VITALS: BP 141/67
[2019-11-21 04:00] VITALS: BP 131/95
[2019-11-21 07:15] LABS: BASOPHILS % (AUTO) 1.8 % (0.0-2.0); EOSINOPHILS % (AUTO) 2.2 % (0.0-3.0); HEMATOCRIT 36.4 % (37.0-47.0); HEMOGLOBIN 12.1 G/DL (12.0-16.0); LYMPHOCYTES % (AUTO) 47.7 % (20.0-45.0); MEAN CORPUSCULAR VOLUME 90 FL (80-99); MONOCYTES % (AUTO) 9.4 % (1.0-10.0); NEUTROPHILS % (AUTO) 38.7 % (45.0-75.0); PLATELET COUNT 296 K/UL (150-450); RED BLOOD COUNT 4.05 M/UL (4.20-5.40); RED CELL DISTRIBUTION WIDTH 14.2 % (11.6-14.8); WHITE BLOOD COUNT 12.6 K/UL (4.8-10.8)
[2019-11-21 07:25] LABS: ANION GAP 11 mmol/L (5-15); BLOOD UREA NITROGEN 22 mg/dL (7-18); CALCIUM 8.6 MG/DL (8.5-10.1); CARBON DIOXIDE 25 MMOL/L (21-32); CHLORIDE 117 MMOL/L (98-107); CREATININE 1.1 MG/DL (0.55-1.30); POTASSIUM 3.7 MMOL/L (3.5-5.1); SODIUM 153 MMOL/L (136-145)
[2019-11-21 08:00] VITALS: BP 144/96
[2019-11-21] MEDS: Aspirin EC 81mg tab ORAL SCH (09:20)
[2019-11-21] MEDS: Lactulose 10gm/15ml UDC ORAL SCH ×3 (09:20→18:15)
[2019-11-21] MEDS: Ascorbic Acid 500mg tab ORAL SCH (09:21)
[2019-11-21] MEDS: Heparin 5000 units/ml inj SUBQ SCH ×2 (09:27→21:30)
--- NOTE | 2019-11-21 11:11 | General Progress Note ---
Assessment/Plan Problem List: (1) Electrolyte imbalance ICD Codes: E87.8 - Other disorders of electrolyte and fluid balance, not elsewhere classified SNOMED: 580384166 (2) Decubitus skin ulcer ICD Codes: L89.90 - Pressure ulcer of unspecified site, unspecified stage SNOMED: 078415979 (3) HTN (hypertension) ICD Codes: I10 - Essential (primary) hypertension SNOMED: 71325930 (4) CVA (cerebral vascular accident) ICD Codes: I63.9 - Cerebral infarction, unspecified SNOMED: 095163443 (5) Malnutrition ICD Codes: E46 - Unspecified protein-calorie malnutrition SNOMED: 11953832 (6) Diabetes ICD Codes: E11.9 - Type 2 diabetes mellitus without complications SNOMED: 88501555 (7) Anemia ICD Codes: D64.9 - Anemia, unspecified SNOMED: 490098392 (8) Pneumonia due to COVID-19 virus ICD Codes: U07.1 - COVID-19; J12.89 - Other viral pneumonia SNOMED: 632699911, 281892284 (9) UTI (urinary tract infection) ICD Codes: N39.0 - Urinary tract infection, site not specified SNOMED: 21151420 Status: unchanged Assessment/Plan: bowel regimen tyroid labs>>> reviewed monitor bowel movements will fu Subjective ROS Limited/Unobtainable: No Allergies: Coded Allergies: SULFAMETHOXAZOLE (Verified Allergy, Unknown, 11/03/19) TRIMETHOPRIM (Verified Allergy, Unknown, 11/03/19) Objective Last 24 Hour Vital Signs Date Time Temp Pulse Resp B/P (MAP) Pulse Ox O2 Delivery O2 Flow Rate FiO2 11/21/19 08:00 101.8 108 20 144/96 (112) 98 11/21/19 04:00 97.7 104 18 131/95 (107) 94 11/21/19 00:00 99.9 64 18 141/67 (91) 94 11/20/19 21:00 Nasal Cannula 2.0 11/20/19 20:00 102.2 91 19 155/82 (106) 94 11/20/19 19:47 102.2 11/20/19 16:00 100.2 97 17 132/84 (100) 96 11/20/19 12:00 101.2 75 20 136/89 (105) 95 Intake and Output 11/20/19 11/21/19 19:00 07:00 Intake Total 500 ml 300 ml Balance 500 ml 300 ml Intake Oral 500 ml 300 ml # Voids 3 2 Laboratory Tests 11/21/19 06:09: White Blood Count 12.6H, Red Blood Count 4.05L, Hemoglobin 12.1, Hematocrit 36.4L, Mean Corpuscular Volume 90, Mean Corpuscular Hemoglobin 29.8, Mean Corpuscular Hemoglobin Concent 33.2, Red Cell Distribution Width 14.2, Platelet Count 296, Mean Platelet Volume 5.2L, Neutrophils (%) (Auto) 38.7L, Lymphocytes (%) (Auto) 47.7H, Monocytes (%) (Auto) 9.4, Eosinophils (%) (Auto) 2.2, Basophils (%) (Auto) 1.8, Sodium Level 153H, Potassium Level 3.7, Chloride Level 117H, Carbon Dioxide Level 25, Anion Gap 11, Blood Urea Nitrogen 22H, Creatinine 1.1, Estimat Glomerular Filtration Rate 50.2, Glucose Level 117H, Calcium Level 8.6 Height (Feet): 5 Height (Inches): 3.00 Weight (Pounds): 146 General Appearance: no apparent distress EENT: PERRL/EOMI Neck: supple Cardiovascular: normal rate Respiratory/Chest: decreased breath sounds Abdomen: normal bowel sounds, non tender, soft Extremities: normal range of motion Luke Noe MD November 21, 2019 11:11
--- NOTE | 2019-11-21 11:19 | Pulmonology Progress Note ---
Subjective ROS Limited/Unobtainable: No Interval Events: Now on 2L/min O2; none new Constitutional: Reports: no symptoms HEENT: Repors: no symptoms Respiratory: Reports: no symptoms Cardiovascular: Reports: no symptoms Gastrointestinal/Abdominal: Reports: no symptoms Allergies: Coded Allergies: SULFAMETHOXAZOLE (Verified Allergy, Unknown, 11/03/19) TRIMETHOPRIM (Verified Allergy, Unknown, 11/03/19) All Systems: reviewed and negative except above Objective Last 24 Hour Vital Signs Date Time Temp Pulse Resp B/P (MAP) Pulse Ox O2 Delivery O2 Flow Rate FiO2 11/21/19 08:00 101.8 108 20 144/96 (112) 98 11/21/19 04:00 97.7 104 18 131/95 (107) 94 11/21/19 00:00 99.9 64 18 141/67 (91) 94 11/20/19 21:00 Nasal Cannula 2.0 11/20/19 20:00 102.2 91 19 155/82 (106) 94 11/20/19 19:47 102.2 11/20/19 16:00 100.2 97 17 132/84 (100) 96 11/20/19 12:00 101.2 75 20 136/89 (105) 95 Intake and Output 11/20/19 11/21/19 19:00 07:00 Intake Total 500 ml 300 ml Balance 500 ml 300 ml Intake Oral 500 ml 300 ml # Voids 3 2 General Appearance: no acute distress HEENT: mucous membranes moist Respiratory/Chest: chest wall non-tender, decreased breath sounds Cardiovascular: normal peripheral pulses Abdomen: normal bowel sounds Extremities: no cyanosis Neurologic/Psychiatric: alert, responsive Microbiology Date/Time Source Procedure Growth Status 11/19/19 15:40 Blood Blood Culture - Preliminary NO GROWTH AFTER 24 HOURS Resulted 11/19/19 15:00 Blood Blood Culture - Preliminary NO GROWTH AFTER 24 HOURS Resulted Laboratory Tests 11/21/19 06:09: White Blood Count 12.6H, Red Blood Count 4.05L, Hemoglobin 12.1, Hematocrit 36.4L, Mean Corpuscular Volume 90, Mean Corpuscular Hemoglobin 29.8, Mean Corpuscular Hemoglobin Concent 33.2, Red Cell Distribution Width 14.2, Platelet Count 296, Mean Platelet Volume 5.2L, Neutrophils (%) (Auto) 38.7L, Lymphocytes (%) (Auto) 47.7H, Monocytes (%) (Auto) 9.4, Eosinophils (%) (Auto) 2.2, Basophils (%) (Auto) 1.8, Sodium Level 153H, Potassium Level 3.7, Chloride Level 117H, Carbon Dioxide Level 25, Anion Gap 11, Blood Urea Nitrogen 22H, Creatinine 1.1, Estimat Glomerular Filtration Rate 50.2, Glucose Level 117H, Calcium Level 8.6 Current Medications Medications (Trade) Dose Ordered Sig/Maryam Route PRN Reason Start Time Stop Time Status Last Admin Dose Admin Acetaminophen (Tylenol) 650 mg Q4H PRN ORAL MILD PAIN/TEMP >100.5 11/19/19 17:15 12/19/19 17:14 11/21/19 09:42 Ascorbic Acid (Vitamin C) 500 mg DAILY ORAL 11/17/19 09:00 12/08/19 08:59 11/21/19 09:21 Aspirin (Ecotrin) 81 mg DAILY ORAL 11/17/19 09:00 12/20/19 08:59 11/21/19 09:20 Dextrose 1,000 ml @ 100 mls/hr Q10H IV 11/21/19 08:00 12/21/19 07:59 11/21/19 09:20 Dextrose (Dextrose 50%) 25 ml Q30M PRN IV Hypoglycemia 11/16/19 16:45 02/02/20 10:44 Dextrose (Dextrose 50%) 50 ml Q30M PRN IV Hypoglycemia 11/16/19 16:45 02/02/20 10:44 Diphenhydramine HCl (Benadryl) 50 mg Q6H PRN ORAL Itching 11/20/19 13:55 12/20/19 13:54 11/20/19 23:49 Docusate Sodium (Colace) 100 mg TIDPRN PRN ORAL Constipation 11/16/19 16:35 12/16/19 16:34 Haloperidol Lactate (Haldol) 5 mg Q6H PRN IM Agitation 11/20/19 15:45 01/04/20 15:44 Heparin Sodium (Porcine) (Heparin 5000 units/ml) 5,000 units EVERY 12 HOURS SUBQ 11/16/19 21:00 12/27/19 20:59 11/21/19 09:27 Lactulose (Cephulac) 10 gm THREE TIMES A DAY ORAL 11/16/19 18:00 12/13/19 12:59 11/21/19 09:20 Linezolid (Zyvox) 600 mg EVERY 12 HOURS ORAL 11/16/19 21:00 11/25/19 23:59 11/21/19 09:21 Multivitamins (Multivitamins) 1 tab DAILY ORAL 11/17/19 09:00 12/08/19 08:59 11/21/19 09:21 Polyethylene Glycol (Miralax) 17 gm BEDTIME ORAL 11/16/19 21:00 12/13/19 20:59 11/16/19 21:03 Assessment/Plan Assessment/Plan IMPRESSION: 1. UTI. 2. Hypoxemia. Improving; now on @L/min 3. Hypertension. 4. Diabetes mellitus. 5. Previous CVA. 6. Cognitive impairment. 7. care home resident. 8. Bactrim allergy. 9. COVID 19 positive DISCUSSION: Continue oxygen and pulmonary hygiene. 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 SaO2 95% on 2L/min Contine med surg Follow up CXR is better Mara Arellano Omar Syed MD November 21, 2019 11:19
--- NOTE | 2019-11-21 11:41 | General Progress Note ---
Assessment/Plan Problem List: (1) Malnutrition ICD Codes: E46 - Unspecified protein-calorie malnutrition SNOMED: 66585440 (2) Anemia ICD Codes: D64.9 - Anemia, unspecified SNOMED: 184272431 (3) Fever ICD Codes: R50.9 - Fever, unspecified SNOMED: 972163246 (4) CVA (cerebral vascular accident) ICD Codes: I63.9 - Cerebral infarction, unspecified SNOMED: 048770141 (5) HTN (hypertension) ICD Codes: I10 - Essential (primary) hypertension SNOMED: 58611957 (6) Diabetes ICD Codes: E11.9 - Type 2 diabetes mellitus without complications SNOMED: 80928368 (7) Renal failure ICD Codes: N19 - Unspecified kidney failure SNOMED: 54156222 (8) Confusion ICD Codes: R41.0 - Disorientation, unspecified SNOMED: 737348712 (9) Hypoxia ICD Codes: R09.02 - Hypoxemia SNOMED: 362910784 (10) Suspected 2019 novel coronavirus infection ICD Codes: R68.89 - Other general symptoms and signs SNOMED: 885503923 (11) UTI (urinary tract infection) ICD Codes: N39.0 - Urinary tract infection, site not specified SNOMED: 02490999 Status: unchanged Assessment/Plan: o2 pulm tx abx bp bs control cbc bmp am Subjective Constitutional: Reports: weakness Allergies: Coded Allergies: SULFAMETHOXAZOLE (Verified Allergy, Unknown, 11/03/19) TRIMETHOPRIM (Verified Allergy, Unknown, 11/03/19) All Systems: reviewed and negative except above Subjective o2 nc calm in bed Objective Last 24 Hour Vital Signs Date Time Temp Pulse Resp B/P (MAP) Pulse Ox O2 Delivery O2 Flow Rate FiO2 11/21/19 10:12 99.0 11/21/19 09:00 Nasal Cannula 2.0 11/21/19 08:00 101.8 108 20 144/96 (112) 98 11/21/19 04:00 97.7 104 18 131/95 (107) 94 11/21/19 00:00 99.9 64 18 141/67 (91) 94 11/20/19 21:00 Nasal Cannula 2.0 11/20/19 20:00 102.2 91 19 155/82 (106) 94 11/20/19 16:00 100.2 97 17 132/84 (100) 96 11/20/19 12:00 101.2 75 20 136/89 (105) 95 Intake and Output 11/20/19 11/21/19 19:00 07:00 Intake Total 500 ml 300 ml Balance 500 ml 300 ml Intake Oral 500 ml 300 ml # Voids 3 2 Laboratory Tests 11/21/19 06:09: White Blood Count 12.6H, Red Blood Count 4.05L, Hemoglobin 12.1, Hematocrit 36.4L, Mean Corpuscular Volume 90, Mean Corpuscular Hemoglobin 29.8, Mean Corpuscular Hemoglobin Concent 33.2, Red Cell Distribution Width 14.2, Platelet Count 296, Mean Platelet Volume 5.2L, Neutrophils (%) (Auto) 38.7L, Lymphocytes (%) (Auto) 47.7H, Monocytes (%) (Auto) 9.4, Eosinophils (%) (Auto) 2.2, Basophils (%) (Auto) 1.8, Sodium Level 153H, Potassium Level 3.7, Chloride Level 117H, Carbon Dioxide Level 25, Anion Gap 11, Blood Urea Nitrogen 22H, Creatinine 1.1, Estimat Glomerular Filtration Rate 50.2, Glucose Level 117H, Calcium Level 8.6 Height (Feet): 5 Height (Inches): 3.00 Weight (Pounds): 146 General Appearance: lethargic EENT: normal ENT inspection Neck: normal alignment Cardiovascular: normal rate, regular rhythm Respiratory/Chest: no respiratory distress, no accessory muscle use Extremities: normal inspection Skin: normal pigmentation Trevor Cabrera DO November 21, 2019 11:41
[2019-11-21 12:00] VITALS: BP 164/55
[2019-11-21] MEDS ORDERED: Solu-MEDROL 125mg Inj IVP SCH (12:30)
--- NOTE | 2019-11-21 12:33 | Infectious Diseases Prog Note ---
Assessment/Plan Assessment/Plan Assessment: Sepsis Fever, recurrent Acute hypoxic respiratory failure- s/p simple mask, sp NRB, now on 2l NC Pnuemonia- 2ry to COVID19 -11/18 CXR: Slightly improved but persistent and still extensive bilateral infiltrates, since prior exam of 3 days earlier -11/16 CXR: Diffuse bilateral airspace opacities are slightly improved. -11/13 CXR: Unchanged, over 2 days, findings as above. -11/08 CXR: Interval worsening bilateral airspace opacities, worse in the right lung. -11/05 CXR: Slight worsening of bilateral right greater than left interstitial and airspace opacities, over 3 days. Most likely pneumonia but pulmonary edema also a possibility -11/02 CXR: Borderline cardiomegaly. Bilateral interstitial disease. This is nonspecific, could indicate infiltrates, edema, among other possibilities SARS-COV2 PCR + -Influenza sc neg -Bcx NTD -Ferritin 243 (11/17),338 (11/13)<568 (11/08)<- 841 (11/06) -CRP 6.7 (11/17)< 12 (11/13)< 7.9(11/10)<-11.2 (11/08) <- 7.1 (11/06) -Tspot neg Mild leukocytosis, SP -11/13 Bcx NTD Drug rash 2ry to Zosyn UTI -11/10 u/a wbc olivia, nit neg, leuk +3; ucx 10-20k VRE (S amp) -u/a wbc tnct, nit neg, leuk +3; ucx >100k E.coli (hernandes S), >100k P.mirabilis ( R. Ceftriaxone, bactrim) Elevated LFTs, SP Dm2 HTN CVA SNF resident ([facility]) Plan: - Dc ZYvox #8 and monitor off abx -Solumedrol 60mg IV x1 for drug allergy -Will not start Plaquenil as not recommended by IDSA and NIH guidelines -11/18 SP ZOsyn #6- ?allergic reaction -11/11 SP Cefepime #8 -11/07 SP Azithromycin #5 -11/03 SP Ceftriaxone #2 -f/u cx -Monitor CBC/CMP, temperaturse -Monitor inflammatory markers, CXR -f/u Bcx x2, Sp cx Thank you for consulting [facility]. Will continue to follow along wiht you. Discussed with RN Subjective Allergies: Coded Allergies: SULFAMETHOXAZOLE (Verified Allergy, Unknown, 11/03/19) TRIMETHOPRIM (Verified Allergy, Unknown, 11/03/19) Subjective Tm 101.8 at 2L NC Bcx NTD rash persist Objective Vital Signs Last 24 Hour Vital Signs Date Time Temp Pulse Resp B/P (MAP) Pulse Ox O2 Delivery O2 Flow Rate FiO2 11/21/19 10:12 99.0 11/21/19 09:00 Nasal Cannula 2.0 11/21/19 08:00 101.8 108 20 144/96 (112) 98 11/21/19 04:00 97.7 104 18 131/95 (107) 94 11/21/19 00:00 99.9 64 18 141/67 (91) 94 11/20/19 21:00 Nasal Cannula 2.0 11/20/19 20:00 102.2 91 19 155/82 (106) 94 11/20/19 16:00 100.2 97 17 132/84 (100) 96 Height (Feet): 5 Height (Inches): 3.00 Weight (Pounds): 146 Objective General Appearance: no acute distress HEENT: mucous membranes moist Respiratory/Chest: chest wall non-tender, decreased breath sounds Cardiovascular: normal peripheral pulses Abdomen: normal bowel sounds Extremities: no cyanosis Skin: erythematous maculopapular rash trunk, b/l arms, neck, face Microbiology Date/Time Source Procedure Growth Status 11/19/19 15:40 Blood Blood Culture - Preliminary NO GROWTH AFTER 24 HOURS Resulted 11/19/19 15:00 Blood Blood Culture - Preliminary NO GROWTH AFTER 24 HOURS Resulted Laboratory Tests Test 11/21/19 06:09 White Blood Count 12.6 K/UL (4.8-10.8) H Red Blood Count 4.05 M/UL (4.20-5.40) L Hemoglobin 12.1 G/DL (12.0-16.0) Hematocrit 36.4 % (37.0-47.0) L Mean Corpuscular Volume 90 FL (80-99) Mean Corpuscular Hemoglobin 29.8 PG (27.0-31.0) Mean Corpuscular Hemoglobin Concent 33.2 G/DL (32.0-36.0) Red Cell Distribution Width 14.2 % (11.6-14.8) Platelet Count 296 K/UL (150-450) Mean Platelet Volume 5.2 FL (6.5-10.1) L Neutrophils (%) (Auto) 38.7 % (45.0-75.0) L Lymphocytes (%) (Auto) 47.7 % (20.0-45.0) H Monocytes (%) (Auto) 9.4 % (1.0-10.0) Eosinophils (%) (Auto) 2.2 % (0.0-3.0) Basophils (%) (Auto) 1.8 % (0.0-2.0) Sodium Level 153 MMOL/L (136-145) H Potassium Level 3.7 MMOL/L (3.5-5.1) Chloride Level 117 MMOL/L (98-107) H Carbon Dioxide Level 25 MMOL/L (21-32) Anion Gap 11 mmol/L (5-15) Blood Urea Nitrogen 22 mg/dL (7-18) H Creatinine 1.1 MG/DL (0.55-1.30) Estimat Glomerular Filtration Rate 50.2 mL/min (>60) Glucose Level 117 MG/DL (74-106) H Calcium Level 8.6 MG/DL (8.5-10.1) Current Medications Medications (Trade) Dose Ordered Sig/Maryam Route PRN Reason Start Time Stop Time Status Last Admin Dose Admin Acetaminophen (Tylenol) 650 mg Q4H PRN ORAL MILD PAIN/TEMP >100.5 11/19/19 17:15 12/19/19 17:14 11/21/19 09:42 Ascorbic Acid (Vitamin C) 500 mg DAILY ORAL 11/17/19 09:00 12/08/19 08:59 11/21/19 09:21 Aspirin (Ecotrin) 81 mg DAILY ORAL 11/17/19 09:00 12/20/19 08:59 11/21/19 09:20 Dextrose 1,000 ml @ 100 mls/hr Q10H IV 11/21/19 08:00 12/21/19 07:59 11/21/19 09:20 Dextrose (Dextrose 50%) 25 ml Q30M PRN IV Hypoglycemia 11/16/19 16:45 02/02/20 10:44 Dextrose (Dextrose 50%) 50 ml Q30M PRN IV Hypoglycemia 11/16/19 16:45 02/02/20 10:44 Diphenhydramine HCl (Benadryl) 50 mg Q6H PRN ORAL Itching 11/20/19 13:55 12/20/19 13:54 11/20/19 23:49 Docusate Sodium (Colace) 100 mg TIDPRN PRN ORAL Constipation 11/16/19 16:35 12/16/19 16:34 Haloperidol Lactate (Haldol) 5 mg Q6H PRN IM Agitation 11/20/19 15:45 01/04/20 15:44 Heparin Sodium (Porcine) (Heparin 5000 units/ml) 5,000 units EVERY 12 HOURS SUBQ 11/16/19 21:00 12/27/19 20:59 11/21/19 09:27 Lactulose (Cephulac) 10 gm THREE TIMES A DAY ORAL 11/16/19 18:00 12/13/19 12:59 11/21/19 09:20 Linezolid (Zyvox) 600 mg EVERY 12 HOURS ORAL 11/16/19 21:00 11/25/19 23:59 11/21/19 09:21 Multivitamins (Multivitamins) 1 tab DAILY ORAL 11/17/19 09:00 12/08/19 08:59 11/21/19 09:21 Polyethylene Glycol (Miralax) 17 gm BEDTIME ORAL 11/16/19 21:00 12/13/19 20:59 11/16/19 21:03 Jenna Briseno M.D. November 21, 2019 12:33
--- NOTE | 2019-11-21 12:57 | Nephrology Progress Note ---
Assessment/Plan Problem List: (1) Renal failure (2) Electrolyte imbalance (3) Pneumonia due to COVID-19 virus (4) UTI (urinary tract infection) (5) Diabetes Assessment Renal parameters suggest dehydration and free water deficit, and also effect of Lasix use in the past Hypernatremia, Azotemia, high uric acid COVID positive pneumonia UTI Diabetes mellitus Hypertension History of CVA Allergy to Bactrim alf resident Plan D5W 1 L bolus for hypernatremia Continue per current treatment plan Abnormal electrolytes improving Monitor electrolytes and renal parameters Continue per consultants Per orders Subjective ROS Limited/Unobtainable: No Constitutional: Reports: malaise, weakness Objective Objective Last 24 Hour Vital Signs Date Time Temp Pulse Resp B/P (MAP) Pulse Ox O2 Delivery O2 Flow Rate FiO2 11/21/19 10:12 99.0 11/21/19 09:00 Nasal Cannula 2.0 11/21/19 08:00 101.8 108 20 144/96 (112) 98 11/21/19 04:00 97.7 104 18 131/95 (107) 94 11/21/19 00:00 99.9 64 18 141/67 (91) 94 11/20/19 21:00 Nasal Cannula 2.0 11/20/19 20:00 102.2 91 19 155/82 (106) 94 11/20/19 16:00 100.2 97 17 132/84 (100) 96 Intake and Output 11/20/19 11/21/19 19:00 07:00 Intake Total 500 ml 300 ml Balance 500 ml 300 ml Intake Oral 500 ml 300 ml # Voids 3 2 Laboratory Tests 11/21/19 06:09: White Blood Count 12.6H, Red Blood Count 4.05L, Hemoglobin 12.1, Hematocrit 36.4L, Mean Corpuscular Volume 90, Mean Corpuscular Hemoglobin 29.8, Mean Corpuscular Hemoglobin Concent 33.2, Red Cell Distribution Width 14.2, Platelet Count 296, Mean Platelet Volume 5.2L, Neutrophils (%) (Auto) 38.7L, Lymphocytes (%) (Auto) 47.7H, Monocytes (%) (Auto) 9.4, Eosinophils (%) (Auto) 2.2, Basophils (%) (Auto) 1.8, Sodium Level 153H, Potassium Level 3.7, Chloride Level 117H, Carbon Dioxide Level 25, Anion Gap 11, Blood Urea Nitrogen 22H, Creatinine 1.1, Estimat Glomerular Filtration Rate 50.2, Glucose Level 117H, Calcium Level 8.6 Height (Feet): 5 Height (Inches): 3.00 Weight (Pounds): 146 General Appearance: no apparent distress, lethargic Cardiovascular: tachycardia Respiratory/Chest: decreased breath sounds Abdomen: soft Objective No change Wisam Love MD November 21, 2019 12:57
[2019-11-21 14:10] LABS: APPEARANCE,URINE SLIGHTLY CLOUDY; BILIRUBIN, URINE NEGATIVE (NEGATIVE); GLUCOSE, URINE (UA) NEGATIVE (NEGATIVE); KETONES,URINE NEGATIVE (NEGATIVE); LEUKOCYTE ESTERASE ,URINE 3+ (NEGATIVE); NITRITE,URINE NEGATIVE (NEGATIVE); PH,URINE 6 (4.5-8.0); PROTEIN,URINE 2+ (NEGATIVE); UROBILINOGEN,URINE NORMAL MG/DL (0.0-1.0)
[2019-11-21 14:12] LABS: COLOR,URINE YELLOW
[2019-11-21 16:00] VITALS: BP 130/85
--- NOTE | 2019-11-21 18:21 | Surgery Progress Note ---
Surgery Progress Note Subjective Additional Comments comfortable labs reviewed no acute events Objective Last 24 Hour Vital Signs Date Time Temp Pulse Resp B/P (MAP) Pulse Ox O2 Delivery O2 Flow Rate FiO2 11/21/19 13:01 99.8 11/21/19 12:00 102.6 130 18 164/55 (91) 96 11/21/19 10:12 99.0 11/21/19 09:00 Nasal Cannula 2.0 11/21/19 08:00 101.8 108 20 144/96 (112) 98 11/21/19 04:00 97.7 104 18 131/95 (107) 94 11/21/19 00:00 99.9 64 18 141/67 (91) 94 11/20/19 21:00 Nasal Cannula 2.0 11/20/19 20:00 102.2 91 19 155/82 (106) 94 I&O Intake and Output 11/20/19 11/21/19 19:00 07:00 Intake Total 500 ml 300 ml Balance 500 ml 300 ml Intake Oral 500 ml 300 ml # Voids 3 2 Dressing: other Wound: other Drains: other Cardiovascular: RSR Respiratory: decreased breath sounds Abdomen: soft, non-tender, present bowel sounds Extremities: no cyanosis Laboratory Tests Test 11/21/19 06:09 11/21/19 13:00 White Blood Count 12.6 K/UL (4.8-10.8) H Red Blood Count 4.05 M/UL (4.20-5.40) L Hemoglobin 12.1 G/DL (12.0-16.0) Hematocrit 36.4 % (37.0-47.0) L Mean Corpuscular Volume 90 FL (80-99) Mean Corpuscular Hemoglobin 29.8 PG (27.0-31.0) Mean Corpuscular Hemoglobin Concent 33.2 G/DL (32.0-36.0) Red Cell Distribution Width 14.2 % (11.6-14.8) Platelet Count 296 K/UL (150-450) Mean Platelet Volume 5.2 FL (6.5-10.1) L Neutrophils (%) (Auto) 38.7 % (45.0-75.0) L Lymphocytes (%) (Auto) 47.7 % (20.0-45.0) H Monocytes (%) (Auto) 9.4 % (1.0-10.0) Eosinophils (%) (Auto) 2.2 % (0.0-3.0) Basophils (%) (Auto) 1.8 % (0.0-2.0) Sodium Level 153 MMOL/L (136-145) H Potassium Level 3.7 MMOL/L (3.5-5.1) Chloride Level 117 MMOL/L (98-107) H Carbon Dioxide Level 25 MMOL/L (21-32) Anion Gap 11 mmol/L (5-15) Blood Urea Nitrogen 22 mg/dL (7-18) H Creatinine 1.1 MG/DL (0.55-1.30) Estimat Glomerular Filtration Rate 50.2 mL/min (>60) Glucose Level 117 MG/DL (74-106) H Calcium Level 8.6 MG/DL (8.5-10.1) Urine Color Yellow Urine Appearance Slightly cloudy Urine pH 6 (4.5-8.0) Urine Specific [place] 1.015 (1.005-1.035) Urine Protein 2+ (NEGATIVE) H Urine Glucose (UA) Negative (NEGATIVE) Urine Ketones Negative (NEGATIVE) Urine Blood 5+ (NEGATIVE) H Urine Nitrite Negative (NEGATIVE) Urine Bilirubin Negative (NEGATIVE) Urine Urobilinogen Normal MG/DL (0.0-1.0) Urine Leukocyte Esterase 3+ (NEGATIVE) H Urine RBC 10-15 /HPF (0 - 2) H Urine WBC 40-60 /HPF (0 - 2) H Urine Squamous Epithelial Cells Few /LPF (NONE/OCC) Urine Bacteria Few /HPF (NONE) Plan Problems: (1) Hypoxia Assessment & Plan: supplemental O2 monitor closely (2) UTI (urinary tract infection) (3) Suspected 2019 novel coronavirus infection (4) Pneumonia due to COVID-19 virus Assessment & Plan: The heart is borderline enlarged. There are bilateral interstitial opacities diffusely. No definite focal airspace consolidation. The pleural spaces are clear. Impression: Borderline cardiomegaly. Bilateral interstitial disease. This is nonspecific, could indicate infiltrates, edema, among other possibilities on Non rebreather can desaturate may consider steroids (5) Fever (6) Anemia (7) Confusion (8) Diabetes (9) Renal failure (10) Malnutrition Assessment & Plan: DAILY ESTIMATED NEEDS: Needs based on Wound, DM/ 53kg abw 25-30 kcals/kg 7240-0490 total kcals 1.25-1.5 g protein/kg 66-79 g total protein 25-30 mL/kg 1028-0529 total fluid mLs NUTRITION DIAGNOSIS: * Increased kcal/prot intake needs R/T wound healing as evidenced by admitted w/ DTPI wound @ L ischium, non-blanching erythema at cleft of buttocks. * Altered nutrition related lab values R/T diabetes as evidenced by elev POC glu (174, 102, 151, 123, now improved), on NISS. CURRENT DIET:REGULAR PO DIET RECOMMENDATIONS: CCHO med/ texture as tolerated or per [employer]TE[employer]ER ADDITIONAL RECOMMENDATIONS: * Per SNF: HT=61" FN=[id number] * Wound healing: add MVI x 1, Vit C 500mg QD, SYED BID * sliding scale insulin prn * Texture downgrade for chewing deficit as per RN -> consider pureed, rec [employer]TE[employer]INEER eval * High kcal supplement w/ meals, will start w/ Ensure Clear and monitor acceptance (250 kcal/ 8g pro each) (11) HTN (hypertension) (12) CVA (cerebral vascular accident) (13) Decubitus skin ulcer Assessment & Plan: Pt presented on admission with DTPI L ischium. Base of wound is purple, indurated. An area of hyperpigmentation noted distally but in close to wound bed. Non-blanching erythema cleft of buttocks. Hyperpigmentation from previous wound noted to R ischium. Within area of hyperpigmentation an area of non-blanchable erythema noted. No other skin concerns noted. fortunately DTI improving with close care and monitoring nutritional improvement necessary still as abl now 2.3 cont diet push intake will monitor Tx.Plan: Apply Moisture Barrier Paste to Sacrum. Cover with Optifoam drsg. Change every 3 days and prn. Apply Moisture Barrier Paste to R and L Ischium. Cover each area with Optifoam drsg. Change every 3 days and prn. Apply Cavilon Skin Barrier to both heels. Cover each heel with Optifoam drsg. Change every 7 days and prn. Reposition at least every 2hours or as tolerated. Off-load heels with Pillow. DAILY ESTIMATED NEEDS: Needs based on Wound, DM/ 53kg abw 25-30 kcals/kg 4716-8674 total kcals 1.25-1.5 g protein/kg 66-79 g total protein 25-30 mL/kg 7781-1656 total fluid mLs NUTRITION DIAGNOSIS: * Increased kcal/prot intake needs R/T wound healing as evidenced by admitted w/ DTPI wound @ L ischium, non-blanching erythema at cleft of buttocks. * Altered nutrition related lab values R/T diabetes as evidenced by elev POC glu (174, 102, 151, 123), on NISS. CURRENT DIET:REGULAR PO DIET RECOMMENDATIONS: CCHO med/ texture as tolerated or per AIRCRA[employer]INTENANCE ENGINEER ADDITIONAL RECOMMENDATIONS: * Per SNF: HT=61" [id number] * Wound healing: add MVI x 1, Vit C 500mg QD add Syed BID * Texture downgrade for chewing deficit as per RN -> consider pureed * Glucerna x 1 with variable intake (220kcal/10g prot each) Humble Sewell November 21, 2019 18:21
[2019-11-21 20:00] VITALS: BP 140/87
[2019-11-21] MEDS: Miralax 17gm pkt ORAL SCH (21:29)
--- NOTE | 2019-11-21 23:44 | Progress Note ---
DATE: 11/21/2019 SUBJECTIVE: The patient still has episodes of agitation, difficult to redirect. Has p.r.n. medications now. The patient is COVID positive. MENTAL STATUS EXAMINATION: She is alert and disoriented to situation and date. Mood is anxious. Affect is flat. Thought process is concrete. Thought content, no suicidal or homicidal ideation. Cognition is impaired. Insight and judgment are impaired. ASSESSMENT: Stable. PLAN: 1. We will continue p.r.n. medication. 2. Discussed with the nurse. Anu Hubbard M.D. DR: Talita JOB#: [id number] CC:
[2019-11-22] VITALS (7 sets, daily range): BP systolic 118–147; BP diastolic 58–88
[2019-11-22 05:45] LABS: BASOPHILS % (AUTO) 1.5 % (0.0-2.0); EOSINOPHILS % (AUTO) 4.6 % (0.0-3.0); HEMATOCRIT 34.1 % (37.0-47.0); HEMOGLOBIN 11.5 G/DL (12.0-16.0); LYMPHOCYTES % (AUTO) 52.2 % (20.0-45.0); MEAN CORPUSCULAR VOLUME 90 FL (80-99); MONOCYTES % (AUTO) 8.2 % (1.0-10.0); NEUTROPHILS % (AUTO) 33.4 % (45.0-75.0); PLATELET COUNT 244 K/UL (150-450); RED BLOOD COUNT 3.81 M/UL (4.20-5.40); WHITE BLOOD COUNT 11.8 K/UL (4.8-10.8)
[2019-11-22 06:17] LABS: ANION GAP 13 mmol/L (5-15); BLOOD UREA NITROGEN 22 mg/dL (7-18); CALCIUM 8.2 MG/DL (8.5-10.1); CARBON DIOXIDE 23 MMOL/L (21-32); CHLORIDE 115 MMOL/L (98-107); POTASSIUM 3.4 MMOL/L (3.5-5.1); SODIUM 151 MMOL/L (136-145)
[2019-11-22] MEDS: Lactulose 10gm/15ml UDC ORAL SCH ×3 (09:17→17:09)
[2019-11-22] MEDS: Ascorbic Acid 500mg tab ORAL SCH (09:18)
[2019-11-22] MEDS: Aspirin EC 81mg tab ORAL SCH (09:18)
[2019-11-22] MEDS: Heparin 5000 units/ml inj SUBQ SCH ×2 (09:19→20:10)
--- NOTE | 2019-11-22 09:42 | General Progress Note ---
Assessment/Plan Problem List: (1) Malnutrition ICD Codes: E46 - Unspecified protein-calorie malnutrition SNOMED: 95670349 (2) Anemia ICD Codes: D64.9 - Anemia, unspecified SNOMED: 623026644 (3) Fever ICD Codes: R50.9 - Fever, unspecified SNOMED: 726021810 (4) CVA (cerebral vascular accident) ICD Codes: I63.9 - Cerebral infarction, unspecified SNOMED: 346523854 (5) HTN (hypertension) ICD Codes: I10 - Essential (primary) hypertension SNOMED: 29301626 (6) Diabetes ICD Codes: E11.9 - Type 2 diabetes mellitus without complications SNOMED: 25474663 (7) Renal failure ICD Codes: N19 - Unspecified kidney failure SNOMED: 13699524 (8) Confusion ICD Codes: R41.0 - Disorientation, unspecified SNOMED: 594002022 (9) Hypoxia ICD Codes: R09.02 - Hypoxemia SNOMED: 865484553 (10) Suspected 2019 novel coronavirus infection ICD Codes: R68.89 - Other general symptoms and signs SNOMED: 105954054 (11) UTI (urinary tract infection) ICD Codes: N39.0 - Urinary tract infection, site not specified SNOMED: 90811477 Status: unchanged Assessment/Plan: o2 pulm tx abx bp bs control cbc bmp am Subjective Constitutional: Reports: weakness Allergies: Coded Allergies: SULFAMETHOXAZOLE (Verified Allergy, Unknown, 11/03/19) TRIMETHOPRIM (Verified Allergy, Unknown, 11/03/19) All Systems: reviewed and negative except above Subjective o2 nc calm in bed Objective Last 24 Hour Vital Signs Date Time Temp Pulse Resp B/P (MAP) Pulse Ox O2 Delivery O2 Flow Rate FiO2 11/22/19 08:25 Nasal Cannula 2.0 11/22/19 08:00 99.0 113 20 132/75 (94) 94 11/22/19 07:52 96 Nasal Cannula 2.0 28 11/22/19 04:00 98.6 100 20 140/88 (105) 94 11/22/19 00:00 98.5 100 20 144/86 (105) 96 11/21/19 22:55 Nasal Cannula 2.0 11/21/19 20:00 98.4 100 20 140/87 (104) 98 11/21/19 18:45 99.6 11/21/19 16:00 102.0 112 20 130/85 (100) 93 11/21/19 13:01 99.8 11/21/19 12:00 102.6 130 18 164/55 (91) 96 Intake and Output 11/21/19 11/22/19 19:00 07:00 Intake Total 1000 ml Balance 1000 ml Intake Oral 1000 ml # Voids 3 Laboratory Tests 11/21/19 13:00: Urine Color Yellow, Urine Appearance Slightly cloudy, Urine pH 6, Urine Specific [place] 1.015, Urine Protein 2+H, Urine Glucose (UA) Negative, Urine Ketones Negative, Urine Blood 5+H, Urine Nitrite Negative, Urine Bilirubin Negative, Urine Urobilinogen Normal, Urine Leukocyte Esterase 3+H, Urine RBC 10- 15H, Urine WBC 40-60H, Urine Squamous Epithelial Cells Few, Urine Bacteria Few 11/22/19 04:40: White Blood Count 11.8H, Red Blood Count 3.81L, Hemoglobin 11.5L, Hematocrit 34.1L, Mean Corpuscular Volume 90, Mean Corpuscular Hemoglobin 30.3, Mean Corpuscular Hemoglobin Concent 33.8, Red Cell Distribution Width 14.0, Platelet Count 244, Mean Platelet Volume 5.4L, Neutrophils (%) (Auto) 33.4L, Lymphocytes (%) (Auto) 52.2H, Monocytes (%) (Auto) 8.2, Eosinophils (%) (Auto) 4.6H, Basophils (%) (Auto) 1.5, Sodium Level 151H, Potassium Level 3.4L, Chloride Level 115H, Carbon Dioxide Level 23, Anion Gap 13, Blood Urea Nitrogen 22H, Creatinine 1.0, Estimat Glomerular Filtration Rate 56.0, Glucose Level 107H, Calcium Level 8.2L Height (Feet): 5 Height (Inches): 3.00 Weight (Pounds): 146 General Appearance: lethargic EENT: normal ENT inspection Neck: normal alignment Cardiovascular: normal rate, regular rhythm Respiratory/Chest: no respiratory distress, no accessory muscle use Extremities: normal inspection Skin: normal pigmentation CabreraTrevor PinoAmintaPatricia BUCKNER November 22, 2019 09:42
--- NOTE | 2019-11-22 10:39 | General Progress Note ---
Assessment/Plan Problem List: (1) Electrolyte imbalance ICD Codes: E87.8 - Other disorders of electrolyte and fluid balance, not elsewhere classified SNOMED: 539622975 (2) Decubitus skin ulcer ICD Codes: L89.90 - Pressure ulcer of unspecified site, unspecified stage SNOMED: 212675058 (3) HTN (hypertension) ICD Codes: I10 - Essential (primary) hypertension SNOMED: 71665961 (4) CVA (cerebral vascular accident) ICD Codes: I63.9 - Cerebral infarction, unspecified SNOMED: 213609457 (5) Malnutrition ICD Codes: E46 - Unspecified protein-calorie malnutrition SNOMED: 43016767 (6) Diabetes ICD Codes: E11.9 - Type 2 diabetes mellitus without complications SNOMED: 71288622 (7) Anemia ICD Codes: D64.9 - Anemia, unspecified SNOMED: 350252920 (8) Pneumonia due to COVID-19 virus ICD Codes: U07.1 - COVID-19; J12.89 - Other viral pneumonia SNOMED: 487342332, 844068629 (9) UTI (urinary tract infection) ICD Codes: N39.0 - Urinary tract infection, site not specified SNOMED: 11761070 Status: unchanged Assessment/Plan: bowel regimen tyroid labs>>> reviewed monitor bowel movements will fu Subjective Allergies: Coded Allergies: SULFAMETHOXAZOLE (Verified Allergy, Unknown, 11/03/19) TRIMETHOPRIM (Verified Allergy, Unknown, 11/03/19) Objective Last 24 Hour Vital Signs Date Time Temp Pulse Resp B/P (MAP) Pulse Ox O2 Delivery O2 Flow Rate FiO2 11/22/19 08:25 Nasal Cannula 2.0 11/22/19 08:00 99.0 113 20 132/75 (94) 94 11/22/19 07:52 96 Nasal Cannula 2.0 28 11/22/19 04:00 98.6 100 20 140/88 (105) 94 11/22/19 00:00 98.5 100 20 144/86 (105) 96 11/21/19 22:55 Nasal Cannula 2.0 11/21/19 20:00 98.4 100 20 140/87 (104) 98 11/21/19 18:45 99.6 11/21/19 16:00 102.0 112 20 130/85 (100) 93 11/21/19 13:01 99.8 11/21/19 12:00 102.6 130 18 164/55 (91) 96 Intake and Output 11/21/19 11/22/19 19:00 07:00 Intake Total 1000 ml Balance 1000 ml Intake Oral 1000 ml # Voids 3 Laboratory Tests 11/21/19 13:00: Urine Color Yellow, Urine Appearance Slightly cloudy, Urine pH 6, Urine Specific [place] 1.015, Urine Protein 2+H, Urine Glucose (UA) Negative, Urine Ketones Negative, Urine Blood 5+H, Urine Nitrite Negative, Urine Bilirubin Negative, Urine Urobilinogen Normal, Urine Leukocyte Esterase 3+H, Urine RBC 10- 15H, Urine WBC 40-60H, Urine Squamous Epithelial Cells Few, Urine Bacteria Few 11/22/19 04:40: White Blood Count 11.8H, Red Blood Count 3.81L, Hemoglobin 11.5L, Hematocrit 34.1L, Mean Corpuscular Volume 90, Mean Corpuscular Hemoglobin 30.3, Mean Corpuscular Hemoglobin Concent 33.8, Red Cell Distribution Width 14.0, Platelet Count 244, Mean Platelet Volume 5.4L, Neutrophils (%) (Auto) 33.4L, Lymphocytes (%) (Auto) 52.2H, Monocytes (%) (Auto) 8.2, Eosinophils (%) (Auto) 4.6H, Basophils (%) (Auto) 1.5, Sodium Level 151H, Potassium Level 3.4L, Chloride Level 115H, Carbon Dioxide Level 23, Anion Gap 13, Blood Urea Nitrogen 22H, Creatinine 1.0, Estimat Glomerular Filtration Rate 56.0, Glucose Level 107H, Calcium Level 8.2L Height (Feet): 5 Height (Inches): 3.00 Weight (Pounds): 146 General Appearance: no apparent distress EENT: normal ENT inspection Neck: supple Cardiovascular: normal rate Respiratory/Chest: decreased breath sounds Abdomen: normal bowel sounds, non tender, soft Extremities: non-tender Luke Noe MD November 22, 2019 10:39
--- NOTE | 2019-11-22 11:39 | Pulmonology Progress Note ---
Subjective ROS Limited/Unobtainable: No Interval Events: Now on 2L/min O2; none new Constitutional: Reports: no symptoms HEENT: Repors: no symptoms Respiratory: Reports: no symptoms Cardiovascular: Reports: no symptoms Gastrointestinal/Abdominal: Reports: no symptoms Allergies: Coded Allergies: SULFAMETHOXAZOLE (Verified Allergy, Unknown, 11/03/19) TRIMETHOPRIM (Verified Allergy, Unknown, 11/03/19) All Systems: reviewed and negative except above Objective Last 24 Hour Vital Signs Date Time Temp Pulse Resp B/P (MAP) Pulse Ox O2 Delivery O2 Flow Rate FiO2 11/22/19 08:25 Nasal Cannula 2.0 11/22/19 08:00 99.0 113 20 132/75 (94) 94 11/22/19 07:52 96 Nasal Cannula 2.0 28 11/22/19 04:00 98.6 100 20 140/88 (105) 94 11/22/19 00:00 98.5 100 20 144/86 (105) 96 11/21/19 22:55 Nasal Cannula 2.0 11/21/19 20:00 98.4 100 20 140/87 (104) 98 11/21/19 18:45 99.6 11/21/19 16:00 102.0 112 20 130/85 (100) 93 11/21/19 13:01 99.8 11/21/19 12:00 102.6 130 18 164/55 (91) 96 Intake and Output 11/21/19 11/22/19 19:00 07:00 Intake Total 1000 ml 100 ml Balance 1000 ml 100 ml Intake Oral 1000 ml IV Total 100 ml # Voids 3 General Appearance: no acute distress HEENT: mucous membranes moist Respiratory/Chest: chest wall non-tender, decreased breath sounds Cardiovascular: normal peripheral pulses Abdomen: normal bowel sounds Extremities: no cyanosis Neurologic/Psychiatric: alert, responsive Microbiology Date/Time Source Procedure Growth Status 11/19/19 15:40 Blood Blood Culture - Preliminary NO GROWTH AFTER 48 HOURS Resulted 11/19/19 15:00 Blood Blood Culture - Preliminary NO GROWTH AFTER 48 HOURS Resulted 11/21/19 13:00 Straight Cath Urine Culture - Preliminary NO GROWTH Resulted Laboratory Tests 11/21/19 13:00: Urine Color Yellow, Urine Appearance Slightly cloudy, Urine pH 6, Urine Specific [place] 1.015, Urine Protein 2+H, Urine Glucose (UA) Negative, Urine Ketones Negative, Urine Blood 5+H, Urine Nitrite Negative, Urine Bilirubin Negative, Urine Urobilinogen Normal, Urine Leukocyte Esterase 3+H, Urine RBC 10- 15H, Urine WBC 40-60H, Urine Squamous Epithelial Cells Few, Urine Bacteria Few 11/22/19 04:40: White Blood Count 11.8H, Red Blood Count 3.81L, Hemoglobin 11.5L, Hematocrit 34.1L, Mean Corpuscular Volume 90, Mean Corpuscular Hemoglobin 30.3, Mean Corpuscular Hemoglobin Concent 33.8, Red Cell Distribution Width 14.0, Platelet Count 244, Mean Platelet Volume 5.4L, Neutrophils (%) (Auto) 33.4L, Lymphocytes (%) (Auto) 52.2H, Monocytes (%) (Auto) 8.2, Eosinophils (%) (Auto) 4.6H, Basophils (%) (Auto) 1.5, Sodium Level 151H, Potassium Level 3.4L, Chloride Level 115H, Carbon Dioxide Level 23, Anion Gap 13, Blood Urea Nitrogen 22H, Creatinine 1.0, Estimat Glomerular Filtration Rate 56.0, Glucose Level 107H, Calcium Level 8.2L Current Medications Medications (Trade) Dose Ordered Sig/Maryam Route PRN Reason Start Time Stop Time Status Last Admin Dose Admin Acetaminophen (Tylenol) 650 mg Q4H PRN ORAL MILD PAIN/TEMP >100.5 11/19/19 17:15 12/19/19 17:14 11/21/19 18:15 Ascorbic Acid (Vitamin C) 500 mg DAILY ORAL 11/17/19 09:00 12/08/19 08:59 11/22/19 09:18 Aspirin (Ecotrin) 81 mg DAILY ORAL 11/17/19 09:00 12/20/19 08:59 11/22/19 09:18 Dextrose 1,000 ml @ 100 mls/hr Q10H IV 11/21/19 08:00 12/21/19 07:59 11/21/19 18:15 Dextrose (Dextrose 50%) 25 ml Q30M PRN IV Hypoglycemia 11/16/19 16:45 02/02/20 10:44 Dextrose (Dextrose 50%) 50 ml Q30M PRN IV Hypoglycemia 11/16/19 16:45 02/02/20 10:44 Diphenhydramine HCl (Benadryl) 50 mg Q6H PRN ORAL Itching 11/20/19 13:55 12/20/19 13:54 11/20/19 23:49 Docusate Sodium (Colace) 100 mg TIDPRN PRN ORAL Constipation 11/16/19 16:35 12/16/19 16:34 Haloperidol Lactate (Haldol) 5 mg Q6H PRN IM Agitation 11/20/19 15:45 01/04/20 15:44 Heparin Sodium (Porcine) (Heparin 5000 units/ml) 5,000 units EVERY 12 HOURS SUBQ 11/16/19 21:00 12/27/19 20:59 11/22/19 09:19 Lactulose (Cephulac) 10 gm THREE TIMES A DAY ORAL 11/16/19 18:00 12/13/19 12:59 11/22/19 09:17 Multivitamins (Multivitamins) 1 tab DAILY ORAL 11/17/19 09:00 12/08/19 08:59 11/22/19 09:18 Polyethylene Glycol (Miralax) 17 gm BEDTIME ORAL 11/16/19 21:00 12/13/19 20:59 11/21/19 21:29 Assessment/Plan Assessment/Plan IMPRESSION: 1. UTI. 2. Hypoxemia. Improving; now on @L/min 3. Hypertension. 4. Diabetes mellitus. 5. Previous CVA. 6. Cognitive impairment. 7. care home resident. 8. Bactrim allergy. 9. COVID 19 positive DISCUSSION: Continue oxygen and pulmonary hygiene. 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 SaO2 95% on 2L/min [facility] med surg Follow up CXR is better Mara Arellano Omar Syed MD November 22, 2019 11:39
--- NOTE | 2019-11-22 12:42 | Nephrology Progress Note ---
Assessment/Plan Problem List: (1) Renal failure (2) Electrolyte imbalance (3) Pneumonia due to COVID-19 virus (4) UTI (urinary tract infection) (5) Diabetes Assessment Renal parameters suggest dehydration and free water deficit, and also effect of Lasix use in the past Hypernatremia, Azotemia, high uric acid COVID positive pneumonia UTI Diabetes mellitus Hypertension History of CVA Allergy to Bactrim shelter resident Plan D5W as needed for hypernatremia Continue per current treatment plan Abnormal electrolytes improving Monitor electrolytes and renal parameters Continue per consultants Per orders Subjective ROS Limited/Unobtainable: No Constitutional: Reports: malaise, weakness Objective Objective Last 24 Hour Vital Signs Date Time Temp Pulse Resp B/P (MAP) Pulse Ox O2 Delivery O2 Flow Rate FiO2 11/22/19 12:00 99.0 104 20 124/72 (89) 94 11/22/19 08:25 Nasal Cannula 2.0 11/22/19 08:00 99.0 113 20 132/75 (94) 94 11/22/19 07:52 96 Nasal Cannula 2.0 28 11/22/19 04:00 98.6 100 20 140/88 (105) 94 11/22/19 00:00 98.5 100 20 144/86 (105) 96 11/21/19 22:55 Nasal Cannula 2.0 11/21/19 20:00 98.4 100 20 140/87 (104) 98 11/21/19 18:45 99.6 11/21/19 16:00 102.0 112 20 130/85 (100) 93 11/21/19 13:01 99.8 Intake and Output 11/21/19 11/22/19 19:00 07:00 Intake Total 1000 ml 100 ml Balance 1000 ml 100 ml Intake Oral 1000 ml IV Total 100 ml # Voids 3 Laboratory Tests 11/21/19 13:00: Urine Color Yellow, Urine Appearance Slightly cloudy, Urine pH 6, Urine Specific [place] 1.015, Urine Protein 2+H, Urine Glucose (UA) Negative, Urine Ketones Negative, Urine Blood 5+H, Urine Nitrite Negative, Urine Bilirubin Negative, Urine Urobilinogen Normal, Urine Leukocyte Esterase 3+H, Urine RBC 10- 15H, Urine WBC 40-60H, Urine Squamous Epithelial Cells Few, Urine Bacteria Few 11/22/19 04:40: White Blood Count 11.8H, Red Blood Count 3.81L, Hemoglobin 11.5L, Hematocrit 34.1L, Mean Corpuscular Volume 90, Mean Corpuscular Hemoglobin 30.3, Mean Corpuscular Hemoglobin Concent 33.8, Red Cell Distribution Width 14.0, Platelet Count 244, Mean Platelet Volume 5.4L, Neutrophils (%) (Auto) 33.4L, Lymphocytes (%) (Auto) 52.2H, Monocytes (%) (Auto) 8.2, Eosinophils (%) (Auto) 4.6H, Basophils (%) (Auto) 1.5, Sodium Level 151H, Potassium Level 3.4L, Chloride Level 115H, Carbon Dioxide Level 23, Anion Gap 13, Blood Urea Nitrogen 22H, Creatinine 1.0, Estimat Glomerular Filtration Rate 56.0, Glucose Level 107H, Calcium Level 8.2L Height (Feet): 5 Height (Inches): 3.00 Weight (Pounds): 146 Cardiovascular: bradycardia Respiratory/Chest: decreased breath sounds Abdomen: soft Objective No change Wisam Love MD November 22, 2019 12:42
--- NOTE | 2019-11-22 14:27 | Surgery Progress Note ---
Surgery Progress Note Subjective Additional Comments no acute events comfortable stable labs noted tracking eyes Objective Last 24 Hour Vital Signs Date Time Temp Pulse Resp B/P (MAP) Pulse Ox O2 Delivery O2 Flow Rate FiO2 11/22/19 12:00 99.0 104 20 124/72 (89) 94 11/22/19 08:25 Nasal Cannula 2.0 11/22/19 08:00 99.0 113 20 132/75 (94) 94 11/22/19 07:52 96 Nasal Cannula 2.0 28 11/22/19 04:00 98.6 100 20 140/88 (105) 94 11/22/19 00:00 98.5 100 20 144/86 (105) 96 11/21/19 22:55 Nasal Cannula 2.0 11/21/19 20:00 98.4 100 20 140/87 (104) 98 11/21/19 18:45 99.6 11/21/19 16:00 102.0 112 20 130/85 (100) 93 I&O Intake and Output 11/21/19 11/22/19 19:00 07:00 Intake Total 1000 ml 100 ml Balance 1000 ml 100 ml Intake Oral 1000 ml IV Total 100 ml # Voids 3 Dressing: other Wound: other Drains: other Cardiovascular: RSR Respiratory: decreased breath sounds Abdomen: soft, non-tender Extremities: no tenderness, no cyanosis Laboratory Tests Test 11/22/19 04:40 White Blood Count 11.8 K/UL (4.8-10.8) H Red Blood Count 3.81 M/UL (4.20-5.40) L Hemoglobin 11.5 G/DL (12.0-16.0) L Hematocrit 34.1 % (37.0-47.0) L Mean Corpuscular Volume 90 FL (80-99) Mean Corpuscular Hemoglobin 30.3 PG (27.0-31.0) Mean Corpuscular Hemoglobin Concent 33.8 G/DL (32.0-36.0) Red Cell Distribution Width 14.0 % (11.6-14.8) Platelet Count 244 K/UL (150-450) Mean Platelet Volume 5.4 FL (6.5-10.1) L Neutrophils (%) (Auto) 33.4 % (45.0-75.0) L Lymphocytes (%) (Auto) 52.2 % (20.0-45.0) H Monocytes (%) (Auto) 8.2 % (1.0-10.0) Eosinophils (%) (Auto) 4.6 % (0.0-3.0) H Basophils (%) (Auto) 1.5 % (0.0-2.0) Sodium Level 151 MMOL/L (136-145) H Potassium Level 3.4 MMOL/L (3.5-5.1) L Chloride Level 115 MMOL/L (98-107) H Carbon Dioxide Level 23 MMOL/L (21-32) Anion Gap 13 mmol/L (5-15) Blood Urea Nitrogen 22 mg/dL (7-18) H Creatinine 1.0 MG/DL (0.55-1.30) Estimat Glomerular Filtration Rate 56.0 mL/min (>60) Glucose Level 107 MG/DL (74-106) H Calcium Level 8.2 MG/DL (8.5-10.1) L Plan Problems: (1) Hypoxia Assessment & Plan: supplemental O2 monitor closely (2) UTI (urinary tract infection) (3) Suspected 2019 novel coronavirus infection (4) Pneumonia due to COVID-19 virus Assessment & Plan: The heart is borderline enlarged. There are bilateral interstitial opacities diffusely. No definite focal airspace consolidation. The pleural spaces are clear. Impression: Borderline cardiomegaly. Bilateral interstitial disease. This is nonspecific, could indicate infiltrates, edema, among other possibilities on Non rebreather can desaturate Slightly improved but persistent and still extensive bilateral infiltrates (5) Fever (6) Anemia (7) Confusion (8) Diabetes (9) Renal failure (10) Malnutrition Assessment & Plan: DAILY ESTIMATED NEEDS: Needs based on Wound, DM/ 53kg abw 25-30 kcals/kg 6071-2507 total kcals 1.25-1.5 g protein/kg 66-79 g total protein 25-30 mL/kg 9333-2290 total fluid mLs NUTRITION DIAGNOSIS: * Increased kcal/prot intake needs R/T wound healing as evidenced by admitted w/ DTPI wound @ L ischium, non-blanching erythema at cleft of buttocks. * Altered nutrition related lab values R/T diabetes as evidenced by elev POC glu (174, 102, 151, 123, now improved), on NISS. CURRENT DIET:REGULAR PO DIET RECOMMENDATIONS: CCHO med/ texture as tolerated or per HAUNTED HISTORY TOUR GUIDE ADDITIONAL RECOMMENDATIONS: * Per SNF: HT=61" YK=[id number] * Wound healing: add MVI x 1, Vit C 500mg QD, SYED BID * sliding scale insulin prn * Texture downgrade for chewing deficit as per RN -> consider pureed, rec HAUNTED HISTORY TOUR GUIDE eval * High kcal supplement w/ meals, will start w/ Ensure Clear and monitor acceptance (250 kcal/ 8g pro each) (11) HTN (hypertension) (12) CVA (cerebral vascular accident) (13) Decubitus skin ulcer Assessment & Plan: Pt presented on admission with DTPI L ischium. Base of wound is purple, indurated. An area of hyperpigmentation noted distally but in close to wound bed. Non-blanching erythema cleft of buttocks. Hyperpigmentation from previous wound noted to R ischium. Within area of hyperpigmentation an area of non-blanchable erythema noted. No other skin concerns noted. fortunately DTI improving with close care and monitoring nutritional improvement necessary still as abl now 2.3 cont diet push intake will monitor Tx.Plan: Apply Moisture Barrier Paste to Sacrum. Cover with Optifoam drsg. Change every 3 days and prn. Apply Moisture Barrier Paste to R and L Ischium. Cover each area with Optifoam drsg. Change every 3 days and prn. Apply Cavilon Skin Barrier to both heels. Cover each heel with Optifoam drsg. Change every 7 days and prn. Reposition at least every 2hours or as tolerated. Off-load heels with Pillow. DAILY ESTIMATED NEEDS: Needs based on Wound, DM/ 53kg abw 25-30 kcals/kg 4814-4321 total kcals 1.25-1.5 g protein/kg 66-79 g total protein 25-30 mL/kg 0614-6767 total fluid mLs NUTRITION DIAGNOSIS: * Increased kcal/prot intake needs R/T wound healing as evidenced by admitted w/ DTPI wound @ L ischium, non-blanching erythema at cleft of buttocks. * Altered nutrition related lab values R/T diabetes as evidenced by elev POC glu (174, 102, 151, 123), on NISS. CURRENT DIET:REGULAR PO DIET RECOMMENDATIONS: CCHO med/ texture as tolerated or per HAUNTED HISTORY TOUR GUIDE ADDITIONAL RECOMMENDATIONS: * Per SNF: HT=61" HH=954baz * Wound healing: add MVI x 1, Vit C 500mg QD add Syed BID * Texture downgrade for chewing deficit as per RN -> consider pureed * Glucerna x 1 with variable intake (220kcal/10g prot each) Humble Sewell November 22, 2019 14:27
--- NOTE | 2019-11-22 15:10 | Infectious Diseases Prog Note ---
Assessment/Plan Assessment/Plan Assessment: Sepsis Fever, recurrent; improving Acute hypoxic respiratory failure- s/p simple mask, sp NRB, now on 2l NC Pnuemonia- 2ry to COVID19 -11/19 CXR: Slightly improved but persistent and still extensive bilateral infiltrates, since prior exam of 3 days earlier -11/16 CXR: Diffuse bilateral airspace opacities are slightly improved. -11/13 CXR: Unchanged, over 2 days, findings as above. -11/08 CXR: Interval worsening bilateral airspace opacities, worse in the right lung. -11/05 CXR: Slight worsening of bilateral right greater than left interstitial and airspace opacities, over 3 days. Most likely pneumonia but pulmonary edema also a possibility -11/02 CXR: Borderline cardiomegaly. Bilateral interstitial disease. This is nonspecific, could indicate infiltrates, edema, among other possibilities SARS-COV2 PCR + -Influenza sc neg -Ferritin 180 (11/19), 243 (11/17),338 (11/13)<568 (11/08)<- 841 (11/06) -CRP 5 (11/19), 6.7 (11/17)< 12 (11/13)< 7.9(11/10)<-11.2 (11/08) <- 7.1 (11/06) -Tspot neg Mild leukocytosis, SP -11/20 u/a wb 40-60, nit neg, leuk +3; ucx NTD -11/18 Bcx nTD -11/13 Bcx Neg Drug rash 2ry to Zosyn UTI -11/10 u/a wbc olivia, nit neg, leuk +3; ucx 10-20k VRE (S amp) -u/a wbc tnct, nit neg, leuk +3; ucx >100k E.coli (hernandes S), >100k P.mirabilis ( R. Ceftriaxone, bactrim) Elevated LFTs, SP Dm2 HTN CVA [facility] resident ([facility]) Plan: - Continue monitor off abx -Will not start Plaquenil as not recommended by IDSA and NIH guidelines -11/20 SP Zyvox #8, SOlumedrol 60mg IV x1 (drug allergy) -11/18 SP ZOsyn #6- ?allergic reaction -11/11 SP Cefepime #8 -11/07 SP Azithromycin #5 -11/03 SP Ceftriaxone #2 -f/u cx -Monitor CBC/CMP, temperaturse -Monitor inflammatory markers, CXR -f/u Bcx x2, Sp cx Thank you for consulting [facility]. Will continue to follow along wiht you. Discussed with RN Subjective Allergies: Coded Allergies: SULFAMETHOXAZOLE (Verified Allergy, Unknown, 11/03/19) TRIMETHOPRIM (Verified Allergy, Unknown, 11/03/19) Subjective Tm 102; afebrile in ~24hrs at 2L NC Bcx NTD wbc improving Objective Vital Signs Last 24 Hour Vital Signs Date Time Temp Pulse Resp B/P (MAP) Pulse Ox O2 Delivery O2 Flow Rate FiO2 11/22/19 12:00 99.0 104 20 124/72 (89) 94 11/22/19 08:25 Nasal Cannula 2.0 11/22/19 08:00 99.0 113 20 132/75 (94) 94 11/22/19 07:52 96 Nasal Cannula 2.0 28 11/22/19 04:00 98.6 100 20 140/88 (105) 94 11/22/19 00:00 98.5 100 20 144/86 (105) 96 11/21/19 22:55 Nasal Cannula 2.0 11/21/19 20:00 98.4 100 20 140/87 (104) 98 11/21/19 18:45 99.6 11/21/19 16:00 102.0 112 20 130/85 (100) 93 Height (Feet): 5 Height (Inches): 3.00 Weight (Pounds): 146 Objective General Appearance: no acute distress HEENT: mucous membranes moist Respiratory/Chest: chest wall non-tender, decreased breath sounds Cardiovascular: normal peripheral pulses Abdomen: normal bowel sounds Extremities: no cyanosis Skin: erythematous maculopapular rash trunk, b/l arms, neck, face Microbiology Date/Time Source Procedure Growth Status 11/19/19 15:40 Blood Blood Culture - Preliminary NO GROWTH AFTER 48 HOURS Resulted 11/21/19 13:00 Straight Cath Urine Culture - Preliminary NO GROWTH Resulted Laboratory Tests Test 11/22/19 04:40 White Blood Count 11.8 K/UL (4.8-10.8) H Red Blood Count 3.81 M/UL (4.20-5.40) L Hemoglobin 11.5 G/DL (12.0-16.0) L Hematocrit 34.1 % (37.0-47.0) L Mean Corpuscular Volume 90 FL (80-99) Mean Corpuscular Hemoglobin 30.3 PG (27.0-31.0) Mean Corpuscular Hemoglobin Concent 33.8 G/DL (32.0-36.0) Red Cell Distribution Width 14.0 % (11.6-14.8) Platelet Count 244 K/UL (150-450) Mean Platelet Volume 5.4 FL (6.5-10.1) L Neutrophils (%) (Auto) 33.4 % (45.0-75.0) L Lymphocytes (%) (Auto) 52.2 % (20.0-45.0) H Monocytes (%) (Auto) 8.2 % (1.0-10.0) Eosinophils (%) (Auto) 4.6 % (0.0-3.0) H Basophils (%) (Auto) 1.5 % (0.0-2.0) Sodium Level 151 MMOL/L (136-145) H Potassium Level 3.4 MMOL/L (3.5-5.1) L Chloride Level 115 MMOL/L (98-107) H Carbon Dioxide Level 23 MMOL/L (21-32) Anion Gap 13 mmol/L (5-15) Blood Urea Nitrogen 22 mg/dL (7-18) H Creatinine 1.0 MG/DL (0.55-1.30) Estimat Glomerular Filtration Rate 56.0 mL/min (>60) Glucose Level 107 MG/DL (74-106) H Calcium Level 8.2 MG/DL (8.5-10.1) L Current Medications Medications (Trade) Dose Ordered Sig/Maryam Route PRN Reason Start Time Stop Time Status Last Admin Dose Admin Acetaminophen (Tylenol) 650 mg Q4H PRN ORAL MILD PAIN/TEMP >100.5 11/19/19 17:15 12/19/19 17:14 11/21/19 18:15 Ascorbic Acid (Vitamin C) 500 mg DAILY ORAL 11/17/19 09:00 12/08/19 08:59 11/22/19 09:18 Aspirin (Ecotrin) 81 mg DAILY ORAL 11/17/19 09:00 12/20/19 08:59 11/22/19 09:18 Dextrose 1,000 ml @ 100 mls/hr Q10H IV 11/21/19 08:00 12/21/19 07:59 11/22/19 13:05 Dextrose (Dextrose 50%) 25 ml Q30M PRN IV Hypoglycemia 11/16/19 16:45 02/02/20 10:44 Dextrose (Dextrose 50%) 50 ml Q30M PRN IV Hypoglycemia 11/16/19 16:45 02/02/20 10:44 Diphenhydramine HCl (Benadryl) 50 mg Q6H PRN ORAL Itching 11/20/19 13:55 12/20/19 13:54 11/20/19 23:49 Docusate Sodium (Colace) 100 mg TIDPRN PRN ORAL Constipation 11/16/19 16:35 12/16/19 16:34 Haloperidol Lactate (Haldol) 5 mg Q6H PRN IM Agitation 11/20/19 15:45 01/04/20 15:44 Heparin Sodium (Porcine) (Heparin 5000 units/ml) 5,000 units EVERY 12 HOURS SUBQ 11/16/19 21:00 12/27/19 20:59 11/22/19 09:19 Lactulose (Cephulac) 10 gm THREE TIMES A DAY ORAL 11/16/19 18:00 12/13/19 12:59 11/22/19 12:41 Multivitamins (Multivitamins) 1 tab DAILY ORAL 11/17/19 09:00 12/08/19 08:59 11/22/19 09:18 Polyethylene Glycol (Miralax) 17 gm BEDTIME ORAL 11/16/19 21:00 12/13/19 20:59 11/21/19 21:29 Jenna Briseno M.D. November 22, 2019 15:10
[2019-11-22] MEDS: Miralax 17gm pkt ORAL SCH (20:09)
--- NOTE | 2019-11-23 00:04 | Psych Consult Progress Note ---
Psychiatry Progress Note Psychiatry Progress Note Medications Current Medications Medications (Trade) Dose Ordered Sig/Maryam Route PRN Reason Start Time Stop Time Status Last Admin Dose Admin Acetaminophen (Tylenol) 650 mg Q4H PRN ORAL MILD PAIN/TEMP >100.5 11/19/19 17:15 12/19/19 17:14 11/22/19 16:59 Ascorbic Acid (Vitamin C) 500 mg DAILY ORAL 11/17/19 09:00 12/08/19 08:59 11/22/19 09:18 Aspirin (Ecotrin) 81 mg DAILY ORAL 11/17/19 09:00 12/20/19 08:59 11/22/19 09:18 Dextrose 1,000 ml @ 100 mls/hr Q10H IV 11/21/19 08:00 12/21/19 07:59 11/23/19 00:01 Dextrose (Dextrose 50%) 25 ml Q30M PRN IV Hypoglycemia 11/16/19 16:45 02/02/20 10:44 Dextrose (Dextrose 50%) 50 ml Q30M PRN IV Hypoglycemia 11/16/19 16:45 02/02/20 10:44 Diphenhydramine HCl (Benadryl) 50 mg Q6H PRN ORAL Itching 11/20/19 13:55 12/20/19 13:54 11/20/19 23:49 Docusate Sodium (Colace) 100 mg TIDPRN PRN ORAL Constipation 11/16/19 16:35 12/16/19 16:34 Haloperidol Lactate (Haldol) 5 mg Q6H PRN IM Agitation 11/20/19 15:45 01/04/20 15:44 Heparin Sodium (Porcine) (Heparin 5000 units/ml) 5,000 units EVERY 12 HOURS SUBQ 11/16/19 21:00 12/27/19 20:59 11/22/19 20:10 Lactulose (Cephulac) 10 gm THREE TIMES A DAY ORAL 11/16/19 18:00 12/13/19 12:59 11/22/19 17:09 Multivitamins (Multivitamins) 1 tab DAILY ORAL 11/17/19 09:00 12/08/19 08:59 11/22/19 09:18 Polyethylene Glycol (Miralax) 17 gm BEDTIME ORAL 11/16/19 21:00 12/13/19 20:59 11/22/19 20:09 Allergies: Coded Allergies: SULFAMETHOXAZOLE (Verified Allergy, Unknown, 11/03/19) TRIMETHOPRIM (Verified Allergy, Unknown, 11/03/19) Objective Data Height (Feet): 5 Height (Inches): 3.00 Weight (Pounds): 146 Assessment/Plan Status: unchanged Anu Hubbard MD November 23, 2019 00:04
[2019-11-23 04:00] VITALS: BP 102/71
[2019-11-23 06:20] LABS: BASOPHILS % (AUTO) 0.9 % (0.0-2.0); EOSINOPHILS % (AUTO) 7.4 % (0.0-3.0); HEMATOCRIT 32.9 % (37.0-47.0); LYMPHOCYTES % (AUTO) 51.2 % (20.0-45.0); MEAN CORPUSCULAR VOLUME 89 FL (80-99); MONOCYTES % (AUTO) 8.2 % (1.0-10.0); NEUTROPHILS % (AUTO) 32.2 % (45.0-75.0); PLATELET COUNT 188 K/UL (150-450); RED BLOOD COUNT 3.68 M/UL (4.20-5.40); RED CELL DISTRIBUTION WIDTH 13.6 % (11.6-14.8); WHITE BLOOD COUNT 7.8 K/UL (4.8-10.8)
[2019-11-23 06:31] LABS: BLOOD UREA NITROGEN 16 mg/dL (7-18); CALCIUM 8.1 MG/DL (8.5-10.1); CHLORIDE 109 MMOL/L (98-107); CREATININE 0.8 MG/DL (0.55-1.30); POTASSIUM 3.5 MMOL/L (3.5-5.1); SODIUM 145 MMOL/L (136-145)
[2019-11-23 06:45] LABS: CARBON DIOXIDE 24 MMOL/L (21-32)
[2019-11-23 08:00] VITALS: BP 124/74
[2019-11-23] MEDS: Lactulose 10gm/15ml UDC ORAL SCH ×3 (08:32→17:16)
[2019-11-23] MEDS: Aspirin EC 81mg tab ORAL SCH (08:32)
[2019-11-23] MEDS: Ascorbic Acid 500mg tab ORAL SCH (08:33)
[2019-11-23] MEDS: Heparin 5000 units/ml inj SUBQ SCH ×2 (08:33→21:26)
--- NOTE | 2019-11-23 09:50 | General Progress Note ---
Assessment/Plan Problem List: (1) Malnutrition ICD Codes: E46 - Unspecified protein-calorie malnutrition SNOMED: 05466687 (2) Anemia ICD Codes: D64.9 - Anemia, unspecified SNOMED: 992393505 (3) Fever ICD Codes: R50.9 - Fever, unspecified SNOMED: 825621491 (4) CVA (cerebral vascular accident) ICD Codes: I63.9 - Cerebral infarction, unspecified SNOMED: 068340884 (5) HTN (hypertension) ICD Codes: I10 - Essential (primary) hypertension SNOMED: 23722788 (6) Diabetes ICD Codes: E11.9 - Type 2 diabetes mellitus without complications SNOMED: 36305028 (7) Renal failure ICD Codes: N19 - Unspecified kidney failure SNOMED: 16442101 (8) Confusion ICD Codes: R41.0 - Disorientation, unspecified SNOMED: 018402098 (9) Hypoxia ICD Codes: R09.02 - Hypoxemia SNOMED: 896492835 (10) Suspected 2019 novel coronavirus infection ICD Codes: R68.89 - Other general symptoms and signs SNOMED: 816340790 (11) UTI (urinary tract infection) ICD Codes: N39.0 - Urinary tract infection, site not specified SNOMED: 07661123 Status: unchanged Assessment/Plan: o2 pulm tx abx bp bs control cbc bmp am Subjective Constitutional: Reports: weakness Allergies: Coded Allergies: SULFAMETHOXAZOLE (Verified Allergy, Unknown, 11/03/19) TRIMETHOPRIM (Verified Allergy, Unknown, 11/03/19) All Systems: reviewed and negative except above Subjective o2 nc calm in bed Objective Last 24 Hour Vital Signs Date Time Temp Pulse Resp B/P (MAP) Pulse Ox O2 Delivery O2 Flow Rate FiO2 11/23/19 08:40 Nasal Cannula 2.0 11/23/19 08:00 98.9 73 19 124/74 (91) 96 11/23/19 04:00 97.9 66 20 102/71 (81) 97 11/23/19 00:32 96 Nasal Cannula 2.0 28 11/22/19 23:22 98.6 86 18 129/76 (93) 96 11/22/19 21:55 Nasal Cannula 2.0 11/22/19 20:00 97.8 90 18 118/75 (89) 95 11/22/19 17:29 98.7 11/22/19 16:36 100.4 105 20 147/58 (87) 94 11/22/19 12:00 99.0 104 20 124/72 (89) 94 Intake and Output 11/22/19 11/23/19 19:00 07:00 Intake Total 1850 ml 1000 ml Balance 1850 ml 1000 ml Intake Oral 750 ml IV Total 1100 ml 1000 ml # Voids 3 4 # Bowel Movements 1 Laboratory Tests 11/23/19 04:30: White Blood Count 7.8, Red Blood Count 3.68L, Hemoglobin 11.0L, Hematocrit 32.9L , Mean Corpuscular Volume 89, Mean Corpuscular Hemoglobin 29.9, Mean Corpuscular Hemoglobin Concent 33.5, Red Cell Distribution Width 13.6, Platelet Count 188, Mean Platelet Volume 5.4L, Neutrophils (%) (Auto) 32.2L, Lymphocytes (%) (Auto) 51.2H, Monocytes (%) (Auto) 8.2, Eosinophils (%) (Auto) 7.4H, Basophils (%) (Auto) 0.9, Sodium Level 145, Potassium Level 3.5, Chloride Level 109H, Carbon Dioxide Level 24, Blood Urea Nitrogen 16, Creatinine 0.8, Estimat Glomerular Filtration Rate > 60, Glucose Level 104, Calcium Level 8.1L Height (Feet): 5 Height (Inches): 3.00 Weight (Pounds): 146 General Appearance: lethargic EENT: normal ENT inspection Neck: normal alignment Cardiovascular: normal rate, regular rhythm Respiratory/Chest: no respiratory distress, no accessory muscle use Extremities: normal inspection Skin: normal pigmentation Trevor Cabrera DO November 23, 2019 09:50
--- NOTE | 2019-11-23 10:51 | Pulmonology Progress Note ---
Subjective ROS Limited/Unobtainable: No Interval Events: Now on 2L/min O2; none new Constitutional: Reports: no symptoms HEENT: Repors: no symptoms Respiratory: Reports: no symptoms Cardiovascular: Reports: no symptoms Gastrointestinal/Abdominal: Reports: no symptoms Allergies: Coded Allergies: SULFAMETHOXAZOLE (Verified Allergy, Unknown, 11/03/19) TRIMETHOPRIM (Verified Allergy, Unknown, 11/03/19) All Systems: reviewed and negative except above Objective Last 24 Hour Vital Signs Date Time Temp Pulse Resp B/P (MAP) Pulse Ox O2 Delivery O2 Flow Rate FiO2 11/23/19 08:40 Nasal Cannula 2.0 11/23/19 08:00 98.9 73 19 124/74 (91) 96 11/23/19 04:00 97.9 66 20 102/71 (81) 97 11/23/19 00:32 96 Nasal Cannula 2.0 28 11/22/19 23:22 98.6 86 18 129/76 (93) 96 11/22/19 21:55 Nasal Cannula 2.0 11/22/19 20:00 97.8 90 18 118/75 (89) 95 11/22/19 17:29 98.7 11/22/19 16:36 100.4 105 20 147/58 (87) 94 11/22/19 12:00 99.0 104 20 124/72 (89) 94 Intake and Output 11/22/19 11/23/19 19:00 07:00 Intake Total 1850 ml 1100 ml Balance 1850 ml 1100 ml Intake Oral 750 ml IV Total 1100 ml 1100 ml # Voids 3 4 # Bowel Movements 1 General Appearance: no acute distress HEENT: mucous membranes moist Respiratory/Chest: chest wall non-tender, decreased breath sounds Cardiovascular: normal peripheral pulses Abdomen: normal bowel sounds Extremities: no cyanosis Neurologic/Psychiatric: alert, responsive Microbiology Date/Time Source Procedure Growth Status 11/21/19 13:00 Straight Cath Urine Culture - Preliminary NO GROWTH AFTER 24 HOURS Resulted Laboratory Tests 11/23/19 04:30: White Blood Count 7.8, Red Blood Count 3.68L, Hemoglobin 11.0L, Hematocrit 32.9L , Mean Corpuscular Volume 89, Mean Corpuscular Hemoglobin 29.9, Mean Corpuscular Hemoglobin Concent 33.5, Red Cell Distribution Width 13.6, Platelet Count 188, Mean Platelet Volume 5.4L, Neutrophils (%) (Auto) 32.2L, Lymphocytes (%) (Auto) 51.2H, Monocytes (%) (Auto) 8.2, Eosinophils (%) (Auto) 7.4H, Basophils (%) (Auto) 0.9, Sodium Level 145, Potassium Level 3.5, Chloride Level 109H, Carbon Dioxide Level 24, Blood Urea Nitrogen 16, Creatinine 0.8, Estimat Glomerular Filtration Rate > 60, Glucose Level 104, Calcium Level 8.1L Current Medications Medications (Trade) Dose Ordered Sig/Maryam Route PRN Reason Start Time Stop Time Status Last Admin Dose Admin Acetaminophen (Tylenol) 650 mg Q4H PRN ORAL MILD PAIN/TEMP >100.5 11/19/19 17:15 12/19/19 17:14 11/22/19 16:59 Ascorbic Acid (Vitamin C) 500 mg DAILY ORAL 11/17/19 09:00 12/08/19 08:59 11/23/19 08:33 Aspirin (Ecotrin) 81 mg DAILY ORAL 11/17/19 09:00 12/20/19 08:59 11/23/19 08:32 Dextrose 1,000 ml @ 100 mls/hr Q10H IV 11/21/19 08:00 12/21/19 07:59 11/23/19 09:16 Dextrose (Dextrose 50%) 25 ml Q30M PRN IV Hypoglycemia 11/16/19 16:45 02/02/20 10:44 Dextrose (Dextrose 50%) 50 ml Q30M PRN IV Hypoglycemia 11/16/19 16:45 02/02/20 10:44 Diphenhydramine HCl (Benadryl) 50 mg Q6H PRN ORAL Itching 11/20/19 13:55 12/20/19 13:54 11/20/19 23:49 Docusate Sodium (Colace) 100 mg TIDPRN PRN ORAL Constipation 11/16/19 16:35 12/16/19 16:34 Haloperidol Lactate (Haldol) 5 mg Q6H PRN IM Agitation 11/20/19 15:45 01/04/20 15:44 Heparin Sodium (Porcine) (Heparin 5000 units/ml) 5,000 units EVERY 12 HOURS SUBQ 11/16/19 21:00 12/27/19 20:59 11/23/19 08:33 Lactulose (Cephulac) 10 gm THREE TIMES A DAY ORAL 11/16/19 18:00 12/13/19 12:59 11/23/19 08:32 Multivitamins (Multivitamins) 1 tab DAILY ORAL 11/17/19 09:00 12/08/19 08:59 11/23/19 08:32 Polyethylene Glycol (Miralax) 17 gm BEDTIME ORAL 11/16/19 21:00 12/13/19 20:59 11/22/19 20:09 Assessment/Plan Assessment/Plan IMPRESSION: 1. UTI. 2. Hypoxemia. Improving; now on 2L/min 3. Hypertension. 4. Diabetes mellitus. 5. Previous CVA. 6. Cognitive impairment. 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 8. Bactrim allergy. 9. COVID 19 positive DISCUSSION: Continue oxygen and pulmonary hygiene. 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 SaO2 95% on 2L/min [facility] med surg Follow up CXR is better Woody Bradley M.D. Woody Bradley MD November 23, 2019 10:51
[2019-11-23 12:00] VITALS: BP 109/67
--- NOTE | 2019-11-23 12:16 | Diagnostic Imaging Report ---
EXAM: XR Chest, 1 View CLINICAL HISTORY: F/U TECHNIQUE: Frontal view of the chest. COMPARISON: Chest radiograph on 11/20/2019 FINDINGS: Hardware: None. Lungs/pleura: Low lung volumes. Patchy opacities throughout the lungs. No pleural effusion or pneumothorax. Heart/mediastinum: Mild enlargement of the cardiac silhouette. Soft tissues: Unremarkable. Bones: No acute fracture. Upper abdomen: Normal. IMPRESSION: Patchy opacities throughout the lungs, increased compared to prior exam.
--- NOTE | 2019-11-23 12:50 | Nephrology Progress Note ---
Assessment/Plan Problem List: (1) Renal failure (2) Electrolyte imbalance (3) Pneumonia due to COVID-19 virus (4) UTI (urinary tract infection) (5) Diabetes Assessment Renal parameters suggest dehydration and free water deficit, and also effect of Lasix use in the past Hypernatremia, Azotemia, high uric acid COVID positive pneumonia UTI Diabetes mellitus Hypertension History of CVA Allergy to Bactrim [facility] resident Plan D5W as needed for hypernatremia Continue per current treatment plan Abnormal electrolytes improving Monitor electrolytes and renal parameters Continue per consultants Per orders Subjective ROS Limited/Unobtainable: No Constitutional: Reports: malaise, weakness Objective Objective Last 24 Hour Vital Signs Date Time Temp Pulse Resp B/P (MAP) Pulse Ox O2 Delivery O2 Flow Rate FiO2 11/23/19 12:00 98.8 89 19 109/67 (81) 97 11/23/19 08:40 Nasal Cannula 2.0 11/23/19 08:00 98.9 73 19 124/74 (91) 96 11/23/19 04:00 97.9 66 20 102/71 (81) 97 11/23/19 00:32 96 Nasal Cannula 2.0 28 11/22/19 23:22 98.6 86 18 129/76 (93) 96 11/22/19 21:55 Nasal Cannula 2.0 11/22/19 20:00 97.8 90 18 118/75 (89) 95 11/22/19 17:29 98.7 11/22/19 16:36 100.4 105 20 147/58 (87) 94 Intake and Output 11/22/19 11/23/19 19:00 07:00 Intake Total 1850 ml 1100 ml Balance 1850 ml 1100 ml Intake Oral 750 ml IV Total 1100 ml 1100 ml # Voids 3 4 # Bowel Movements 1 Laboratory Tests 11/23/19 04:30: White Blood Count 7.8, Red Blood Count 3.68L, Hemoglobin 11.0L, Hematocrit 32.9L , Mean Corpuscular Volume 89, Mean Corpuscular Hemoglobin 29.9, Mean Corpuscular Hemoglobin Concent 33.5, Red Cell Distribution Width 13.6, Platelet Count 188, Mean Platelet Volume 5.4L, Neutrophils (%) (Auto) 32.2L, Lymphocytes (%) (Auto) 51.2H, Monocytes (%) (Auto) 8.2, Eosinophils (%) (Auto) 7.4H, Basophils (%) (Auto) 0.9, Sodium Level 145, Potassium Level 3.5, Chloride Level 109H, Carbon Dioxide Level 24, Blood Urea Nitrogen 16, Creatinine 0.8, Estimat Glomerular Filtration Rate > 60, Glucose Level 104, Calcium Level 8.1L Height (Feet): 5 Height (Inches): 3.00 Weight (Pounds): 146 General Appearance: no apparent distress, lethargic Cardiovascular: other - Variable rate Respiratory/Chest: decreased breath sounds Objective No change Wisam Love MD November 23, 2019 12:50
[2019-11-23 16:00] VITALS: BP 120/63
--- NOTE | 2019-11-23 16:43 | GI Progress Note ---
Assessment/Plan Problems: (1) Malnutrition ICD Codes: E46 - Unspecified protein-calorie malnutrition SNOMED: 64885099 (2) Anemia ICD Codes: D64.9 - Anemia, unspecified SNOMED: 908005241 (3) Pneumonia due to COVID-19 virus ICD Codes: U07.1 - COVID-19; J12.89 - Other viral pneumonia SNOMED: 119366644, 098407662 (4) Diabetes ICD Codes: E11.9 - Type 2 diabetes mellitus without complications SNOMED: 19553802 (5) Electrolyte imbalance ICD Codes: E87.8 - Other disorders of electrolyte and fluid balance, not elsewhere classified SNOMED: 397892907 Status: unchanged Status Narrative Discussed with Dr. Noe. Assessment/Plan bowel regimen tyroid labs>>> reviewed monitor bowel movements will fu The patient was seen and examined at bedside and all new and available data was reviewed in the patients chart. I agree with the above findings, impression and plan. (Patient seen earlier today. Signature stamp does not reflect patient encounter time.). - Luke Noe MD Subjective Gastrointestinal/Abdominal: Reports: no symptoms Objective Last 24 Hour Vital Signs Date Time Temp Pulse Resp B/P (MAP) Pulse Ox O2 Delivery O2 Flow Rate FiO2 11/23/19 16:00 97.8 81 19 120/63 (82) 98 11/23/19 12:00 98.8 89 19 109/67 (81) 97 11/23/19 08:40 Nasal Cannula 2.0 11/23/19 08:00 98.9 73 19 124/74 (91) 96 11/23/19 04:00 97.9 66 20 102/71 (81) 97 11/23/19 00:32 96 Nasal Cannula 2.0 28 11/22/19 23:22 98.6 86 18 129/76 (93) 96 11/22/19 21:55 Nasal Cannula 2.0 11/22/19 20:00 97.8 90 18 118/75 (89) 95 11/22/19 17:29 98.7 Intake and Output 11/22/19 11/23/19 19:00 07:00 Intake Total 1850 ml 1100 ml Balance 1850 ml 1100 ml Intake Oral 750 ml IV Total 1100 ml 1100 ml # Voids 3 4 # Bowel Movements 1 Laboratory Tests Test 11/23/19 04:30 White Blood Count 7.8 K/UL (4.8-10.8) Red Blood Count 3.68 M/UL (4.20-5.40) L Hemoglobin 11.0 G/DL (12.0-16.0) L Hematocrit 32.9 % (37.0-47.0) L Mean Corpuscular Volume 89 FL (80-99) Mean Corpuscular Hemoglobin 29.9 PG (27.0-31.0) Mean Corpuscular Hemoglobin Concent 33.5 G/DL (32.0-36.0) Red Cell Distribution Width 13.6 % (11.6-14.8) Platelet Count 188 K/UL (150-450) Mean Platelet Volume 5.4 FL (6.5-10.1) L Neutrophils (%) (Auto) 32.2 % (45.0-75.0) L Lymphocytes (%) (Auto) 51.2 % (20.0-45.0) H Monocytes (%) (Auto) 8.2 % (1.0-10.0) Eosinophils (%) (Auto) 7.4 % (0.0-3.0) H Basophils (%) (Auto) 0.9 % (0.0-2.0) Sodium Level 145 MMOL/L (136-145) Potassium Level 3.5 MMOL/L (3.5-5.1) Chloride Level 109 MMOL/L (98-107) H Carbon Dioxide Level 24 MMOL/L (21-32) Blood Urea Nitrogen 16 mg/dL (7-18) Creatinine 0.8 MG/DL (0.55-1.30) Estimat Glomerular Filtration Rate > 60 mL/min (>60) Glucose Level 104 MG/DL (74-106) Calcium Level 8.1 MG/DL (8.5-10.1) L Height (Feet): 5 Height (Inches): 3.00 Weight (Pounds): 146 General Appearance: WD/WN, no apparent distress, alert Cardiovascular: normal rate Respiratory/Chest: normal breath sounds, no respiratory distress Abdominal Exam: normal bowel sounds, non tender, soft Extremities: normal range of motion, non-tender Angelique Fraga NP November 23, 2019 16:43
--- NOTE | 2019-11-23 18:23 | Surgery Progress Note ---
Surgery Progress Note Subjective Additional Comments DELETE ENTERED IN ERROR Objective Last 24 Hour Vital Signs Date Time Temp Pulse Resp B/P (MAP) Pulse Ox O2 Delivery O2 Flow Rate FiO2 11/23/19 16:00 97.8 81 19 120/63 (82) 98 11/23/19 12:00 98.8 89 19 109/67 (81) 97 11/23/19 08:40 Nasal Cannula 2.0 11/23/19 08:00 98.9 73 19 124/74 (91) 96 11/23/19 04:00 97.9 66 20 102/71 (81) 97 11/23/19 00:32 96 Nasal Cannula 2.0 28 11/22/19 23:22 98.6 86 18 129/76 (93) 96 11/22/19 21:55 Nasal Cannula 2.0 11/22/19 20:00 97.8 90 18 118/75 (89) 95 I&O Intake and Output 11/22/19 11/23/19 19:00 07:00 Intake Total 1850 ml 1100 ml Balance 1850 ml 1100 ml Intake Oral 750 ml IV Total 1100 ml 1100 ml # Voids 3 4 # Bowel Movements 1 Laboratory Tests Test 11/23/19 04:30 White Blood Count 7.8 K/UL (4.8-10.8) Red Blood Count 3.68 M/UL (4.20-5.40) L Hemoglobin 11.0 G/DL (12.0-16.0) L Hematocrit 32.9 % (37.0-47.0) L Mean Corpuscular Volume 89 FL (80-99) Mean Corpuscular Hemoglobin 29.9 PG (27.0-31.0) Mean Corpuscular Hemoglobin Concent 33.5 G/DL (32.0-36.0) Red Cell Distribution Width 13.6 % (11.6-14.8) Platelet Count 188 K/UL (150-450) Mean Platelet Volume 5.4 FL (6.5-10.1) L Neutrophils (%) (Auto) 32.2 % (45.0-75.0) L Lymphocytes (%) (Auto) 51.2 % (20.0-45.0) H Monocytes (%) (Auto) 8.2 % (1.0-10.0) Eosinophils (%) (Auto) 7.4 % (0.0-3.0) H Basophils (%) (Auto) 0.9 % (0.0-2.0) Sodium Level 145 MMOL/L (136-145) Potassium Level 3.5 MMOL/L (3.5-5.1) Chloride Level 109 MMOL/L (98-107) H Carbon Dioxide Level 24 MMOL/L (21-32) Blood Urea Nitrogen 16 mg/dL (7-18) Creatinine 0.8 MG/DL (0.55-1.30) Estimat Glomerular Filtration Rate > 60 mL/min (>60) Glucose Level 104 MG/DL (74-106) Calcium Level 8.1 MG/DL (8.5-10.1) Humble Henry November 23, 2019 18:23
[2019-11-23 20:00] VITALS: BP 118/83
--- NOTE | 2019-11-23 20:46 | Infectious Diseases Prog Note ---
Assessment/Plan Assessment/Plan Assessment: Sepsis Fever, recurrent; improving Acute hypoxic respiratory failure- s/p simple mask, sp NRB, now on 2l NC Pnuemonia- 2ry to COVID19 -11/19 CXR: Slightly improved but persistent and still extensive bilateral infiltrates, since prior exam of 3 days earlier -11/16 CXR: Diffuse bilateral airspace opacities are slightly improved. -11/13 CXR: Unchanged, over 2 days, findings as above. -11/08 CXR: Interval worsening bilateral airspace opacities, worse in the right lung. -11/05 CXR: Slight worsening of bilateral right greater than left interstitial and airspace opacities, over 3 days. Most likely pneumonia but pulmonary edema also a possibility -11/02 CXR: Borderline cardiomegaly. Bilateral interstitial disease. This is nonspecific, could indicate infiltrates, edema, among other possibilities SARS-COV2 PCR + -Influenza sc neg -Ferritin 180 (11/19), 243 (11/17),338 (11/13)<568 (11/08)<- 841 (11/06) -CRP 5 (11/19), 6.7 (11/17)< 12 (11/13)< 7.9(11/10)<-11.2 (11/08) <- 7.1 (11/06) -Tspot neg Mild leukocytosis, SP -11/20 u/a wb 40-60, nit neg, leuk +3; ucx NTD -11/18 Bcx nTD -11/13 Bcx Neg Drug rash 2ry to Zosyn UTI -11/20 UA 40-60WBC but cx ng at 48hrs -11/10 u/a wbc olivia, nit neg, leuk +3; ucx 10-20k VRE (S amp) -u/a wbc tnct, nit neg, leuk +3; ucx >100k E.coli (hernandes S), >100k P.mirabilis ( R. Ceftriaxone, bactrim) Elevated LFTs, SP Dm2 HTN CVA [facility] resident ([facility]) Plan: - Continue monitor off abx -Will not start Plaquenil as not recommended by IDSA and NIH guidelines -11/20 SP Zyvox #8, SOlumedrol 60mg IV x1 (drug allergy) -11/18 SP ZOsyn #6- ?allergic reaction -11/11 SP Cefepime #8 -11/07 SP Azithromycin #5 -11/03 SP Ceftriaxone #2 -f/u cx -Monitor CBC/CMP, temperaturse -Monitor inflammatory markers, CXR -f/u Bcx x2, Sp cx, ucx Thank you for consulting [facility]. Will continue to follow along wiht you. Discussed with RN Subjective Allergies: Coded Allergies: SULFAMETHOXAZOLE (Verified Allergy, Unknown, 11/03/19) TRIMETHOPRIM (Verified Allergy, Unknown, 11/03/19) Subjective Afebrile since on 2L NC [place] speaking and reports feeling sleepy Objective Vital Signs Last 24 Hour Vital Signs Date Time Temp Pulse Resp B/P (MAP) Pulse Ox O2 Delivery O2 Flow Rate FiO2 11/23/19 20:11 Nasal Cannula 2.0 11/23/19 16:00 97.8 81 19 120/63 (82) 98 11/23/19 12:00 98.8 89 19 109/67 (81) 97 11/23/19 08:40 Nasal Cannula 2.0 11/23/19 08:00 98.9 73 19 124/74 (91) 96 11/23/19 04:00 97.9 66 20 102/71 (81) 97 11/23/19 00:32 96 Nasal Cannula 2.0 28 11/22/19 23:22 98.6 86 18 129/76 (93) 96 11/22/19 21:55 Nasal Cannula 2.0 Height (Feet): 5 Height (Inches): 3.00 Weight (Pounds): 146 Objective Gen: NAD. well nourished HEENT: MMM. Resp: RRR. unlabored. equal chest rise Abd: nondistended. Neuro: Alert. Microbiology Date/Time Source Procedure Growth Status 11/21/19 13:00 Straight Cath Urine Culture - Preliminary NO GROWTH AFTER 24 HOURS Resulted Laboratory Tests Test 11/23/19 04:30 White Blood Count 7.8 K/UL (4.8-10.8) Red Blood Count 3.68 M/UL (4.20-5.40) L Hemoglobin 11.0 G/DL (12.0-16.0) L Hematocrit 32.9 % (37.0-47.0) L Mean Corpuscular Volume 89 FL (80-99) Mean Corpuscular Hemoglobin 29.9 PG (27.0-31.0) Mean Corpuscular Hemoglobin Concent 33.5 G/DL (32.0-36.0) Red Cell Distribution Width 13.6 % (11.6-14.8) Platelet Count 188 K/UL (150-450) Mean Platelet Volume 5.4 FL (6.5-10.1) L Neutrophils (%) (Auto) 32.2 % (45.0-75.0) L Lymphocytes (%) (Auto) 51.2 % (20.0-45.0) H Monocytes (%) (Auto) 8.2 % (1.0-10.0) Eosinophils (%) (Auto) 7.4 % (0.0-3.0) H Basophils (%) (Auto) 0.9 % (0.0-2.0) Sodium Level 145 MMOL/L (136-145) Potassium Level 3.5 MMOL/L (3.5-5.1) Chloride Level 109 MMOL/L (98-107) H Carbon Dioxide Level 24 MMOL/L (21-32) Blood Urea Nitrogen 16 mg/dL (7-18) Creatinine 0.8 MG/DL (0.55-1.30) Estimat Glomerular Filtration Rate > 60 mL/min (>60) Glucose Level 104 MG/DL (74-106) Calcium Level 8.1 MG/DL (8.5-10.1) L Current Medications Medications (Trade) Dose Ordered Sig/Maryam Route PRN Reason Start Time Stop Time Status Last Admin Dose Admin Acetaminophen (Tylenol) 650 mg Q4H PRN ORAL MILD PAIN/TEMP >100.5 11/19/19 17:15 12/19/19 17:14 11/22/19 16:59 Ascorbic Acid (Vitamin C) 500 mg DAILY ORAL 11/17/19 09:00 12/08/19 08:59 11/23/19 08:33 Aspirin (Ecotrin) 81 mg DAILY ORAL 11/17/19 09:00 12/20/19 08:59 11/23/19 08:32 Dextrose (Dextrose 50%) 25 ml Q30M PRN IV Hypoglycemia 11/16/19 16:45 02/02/20 10:44 Dextrose (Dextrose 50%) 50 ml Q30M PRN IV Hypoglycemia 11/16/19 16:45 02/02/20 10:44 Diphenhydramine HCl (Benadryl) 50 mg Q6H PRN ORAL Itching 11/20/19 13:55 12/20/19 13:54 11/20/19 23:49 Docusate Sodium (Colace) 100 mg TIDPRN PRN ORAL Constipation 11/16/19 16:35 12/16/19 16:34 Haloperidol Lactate (Haldol) 5 mg Q6H PRN IM Agitation 11/20/19 15:45 01/04/20 15:44 Heparin Sodium (Porcine) (Heparin 5000 units/ml) 5,000 units EVERY 12 HOURS SUBQ 11/16/19 21:00 12/27/19 20:59 11/23/19 08:33 Lactulose (Cephulac) 10 gm THREE TIMES A DAY ORAL 11/16/19 18:00 12/13/19 12:59 11/23/19 17:16 Multivitamins (Multivitamins) 1 tab DAILY ORAL 11/17/19 09:00 12/08/19 08:59 11/23/19 08:32 Polyethylene Glycol (Miralax) 17 gm BEDTIME ORAL 11/16/19 21:00 12/13/19 20:59 11/22/19 20:09 Katheryn Shepherd MD November 23, 2019 20:46
--- NOTE | 2019-11-23 20:47 | Surgery Progress Note ---
Surgery Progress Note Subjective Additional Comments no acute events Objective Last 24 Hour Vital Signs Date Time Temp Pulse Resp B/P (MAP) Pulse Ox O2 Delivery O2 Flow Rate FiO2 11/23/19 20:11 Nasal Cannula 2.0 11/23/19 16:00 97.8 81 19 120/63 (82) 98 11/23/19 12:00 98.8 89 19 109/67 (81) 97 11/23/19 08:40 Nasal Cannula 2.0 11/23/19 08:00 98.9 73 19 124/74 (91) 96 11/23/19 04:00 97.9 66 20 102/71 (81) 97 11/23/19 00:32 96 Nasal Cannula 2.0 28 11/22/19 23:22 98.6 86 18 129/76 (93) 96 11/22/19 21:55 Nasal Cannula 2.0 I&O Intake and Output 11/22/19 11/23/19 19:00 07:00 Intake Total 1850 ml 1100 ml Balance 1850 ml 1100 ml Intake Oral 750 ml IV Total 1100 ml 1100 ml # Voids 3 4 # Bowel Movements 1 Dressing: dry Wound: clean Cardiovascular: RSR Respiratory: decreased breath sounds Abdomen: soft, present bowel sounds Extremities: no cyanosis Laboratory Tests Test 11/23/19 04:30 White Blood Count 7.8 K/UL (4.8-10.8) Red Blood Count 3.68 M/UL (4.20-5.40) L Hemoglobin 11.0 G/DL (12.0-16.0) L Hematocrit 32.9 % (37.0-47.0) L Mean Corpuscular Volume 89 FL (80-99) Mean Corpuscular Hemoglobin 29.9 PG (27.0-31.0) Mean Corpuscular Hemoglobin Concent 33.5 G/DL (32.0-36.0) Red Cell Distribution Width 13.6 % (11.6-14.8) Platelet Count 188 K/UL (150-450) Mean Platelet Volume 5.4 FL (6.5-10.1) L Neutrophils (%) (Auto) 32.2 % (45.0-75.0) L Lymphocytes (%) (Auto) 51.2 % (20.0-45.0) H Monocytes (%) (Auto) 8.2 % (1.0-10.0) Eosinophils (%) (Auto) 7.4 % (0.0-3.0) H Basophils (%) (Auto) 0.9 % (0.0-2.0) Sodium Level 145 MMOL/L (136-145) Potassium Level 3.5 MMOL/L (3.5-5.1) Chloride Level 109 MMOL/L (98-107) H Carbon Dioxide Level 24 MMOL/L (21-32) Blood Urea Nitrogen 16 mg/dL (7-18) Creatinine 0.8 MG/DL (0.55-1.30) Estimat Glomerular Filtration Rate > 60 mL/min (>60) Glucose Level 104 MG/DL (74-106) Calcium Level 8.1 MG/DL (8.5-10.1) L Plan Problems: (1) Hypoxia Assessment & Plan: supplemental O2 monitor closely (2) UTI (urinary tract infection) (3) Suspected 2019 novel coronavirus infection (4) Pneumonia due to COVID-19 virus Assessment & Plan: The heart is borderline enlarged. There are bilateral interstitial opacities diffusely. No definite focal airspace consolidation. The pleural spaces are clear. Impression: Borderline cardiomegaly. Bilateral interstitial disease. This is nonspecific, could indicate infiltrates, edema, among other possibilities on Non rebreather can desaturate Slightly improved but persistent and still extensive bilateral infiltrates (5) Fever (6) Anemia (7) Confusion (8) Diabetes (9) Renal failure (10) Malnutrition Assessment & Plan: DAILY ESTIMATED NEEDS: Needs based on Wound, DM/ 53kg abw 25-30 kcals/kg 9960-7361 total kcals 1.25-1.5 g protein/kg 66-79 g total protein 25-30 mL/kg 7199-0380 total fluid mLs NUTRITION DIAGNOSIS: * Increased kcal/prot intake needs R/T wound healing as evidenced by admitted w/ DTPI wound @ L ischium, non-blanching erythema at cleft of buttocks. * Altered nutrition related lab values R/T diabetes as evidenced by elev POC glu (174, 102, 151, 123, now improved), on NISS. CURRENT DIET:REGULAR PO DIET RECOMMENDATIONS: CCHO med/ texture as tolerated or per [employer] ADDITIONAL RECOMMENDATIONS: * Per SNF: HT=61" UL=451dob * Wound healing: add MVI x 1, Vit C 500mg QD, SYED BID * sliding scale insulin prn * Texture downgrade for chewing deficit as per RN -> consider pureed, rec [employer] eval * High kcal supplement w/ meals, will start w/ Ensure Clear and monitor acceptance (250 kcal/ 8g pro each) (11) HTN (hypertension) (12) CVA (cerebral vascular accident) (13) Decubitus skin ulcer Assessment & Plan: Pt presented on admission with DTPI L ischium. Base of wound is purple, indurated. An area of hyperpigmentation noted distally but in close to wound bed. Non-blanching erythema cleft of buttocks. Hyperpigmentation from previous wound noted to R ischium. Within area of hyperpigmentation an area of non-blanchable erythema noted. No other skin concerns noted. fortunately DTI improving with close care and monitoring nutritional improvement necessary still as abl now 2.3 cont diet push intake will monitor Tx.Plan: Apply Moisture Barrier Paste to Sacrum. Cover with Optifoam drsg. Change every 3 days and prn. Apply Moisture Barrier Paste to R and L Ischium. Cover each area with Optifoam drsg. Change every 3 days and prn. Apply Cavilon Skin Barrier to both heels. Cover each heel with Optifoam drsg. Change every 7 days and prn. Reposition at least every 2hours or as tolerated. Off-load heels with Pillow. DAILY ESTIMATED NEEDS: Needs based on Wound, DM/ 53kg abw 25-30 kcals/kg 6620-8401 total kcals 1.25-1.5 g protein/kg 66-79 g total protein 25-30 mL/kg 9805-6430 total fluid mLs NUTRITION DIAGNOSIS: * Increased kcal/prot intake needs R/T wound healing as evidenced by admitted w/ DTPI wound @ L ischium, non-blanching erythema at cleft of buttocks. * Altered nutrition related lab values R/T diabetes as evidenced by elev POC glu (174, 102, 151, 123), on NISS. CURRENT DIET:REGULAR PO DIET RECOMMENDATIONS: CCHO med/ texture as tolerated or per [employer] ADDITIONAL RECOMMENDATIONS: * Per SNF: HT=61" AV=069yuz * Wound healing: add MVI x 1, Vit C 500mg QD add Syed BID * Texture downgrade for chewing deficit as per RN -> consider pureed * Glucerna x 1 with variable intake (220kcal/10g prot each) Humble Sewell November 23, 2019 20:47
[2019-11-23] MEDS: Miralax 17gm pkt ORAL SCH (20:58)
--- NOTE | 2019-11-23 22:54 | Psych Consult Progress Note ---
Psychiatry Progress Note Psychiatry Progress Note Medications Current Medications Medications (Trade) Dose Ordered Sig/Maryam Route PRN Reason Start Time Stop Time Status Last Admin Dose Admin Acetaminophen (Tylenol) 650 mg Q4H PRN ORAL MILD PAIN/TEMP >100.5 11/19/19 17:15 12/19/19 17:14 11/22/19 16:59 Ascorbic Acid (Vitamin C) 500 mg DAILY ORAL 11/17/19 09:00 12/08/19 08:59 11/23/19 08:33 Aspirin (Ecotrin) 81 mg DAILY ORAL 11/17/19 09:00 12/20/19 08:59 11/23/19 08:32 Dextrose (Dextrose 50%) 25 ml Q30M PRN IV Hypoglycemia 11/16/19 16:45 02/02/20 10:44 Dextrose (Dextrose 50%) 50 ml Q30M PRN IV Hypoglycemia 11/16/19 16:45 02/02/20 10:44 Diphenhydramine HCl (Benadryl) 50 mg Q6H PRN ORAL Itching 11/20/19 13:55 12/20/19 13:54 11/20/19 23:49 Docusate Sodium (Colace) 100 mg TIDPRN PRN ORAL Constipation 11/16/19 16:35 12/16/19 16:34 Haloperidol Lactate (Haldol) 5 mg Q6H PRN IM Agitation 11/20/19 15:45 01/04/20 15:44 Heparin Sodium (Porcine) (Heparin 5000 units/ml) 5,000 units EVERY 12 HOURS SUBQ 11/16/19 21:00 12/27/19 20:59 11/23/19 21:26 Lactulose (Cephulac) 10 gm THREE TIMES A DAY ORAL 11/16/19 18:00 12/13/19 12:59 11/23/19 17:16 Multivitamins (Multivitamins) 1 tab DAILY ORAL 11/17/19 09:00 12/08/19 08:59 11/23/19 08:32 Polyethylene Glycol (Miralax) 17 gm BEDTIME ORAL 11/16/19 21:00 12/13/19 20:59 11/22/19 20:09 Neurological/Psychiatric: Reports: anxiety, depressed, emotional problems Allergies: Coded Allergies: SULFAMETHOXAZOLE (Verified Allergy, Unknown, 11/03/19) TRIMETHOPRIM (Verified Allergy, Unknown, 11/03/19) Objective Data Height (Feet): 5 Height (Inches): 3.00 Weight (Pounds): 146 General Appearance: alert, confused, agitated Additional Comments: alert and disoriented to situation and date. Mood is anxious. Affect is flat. Thought process is concrete. Thought content, no suicidal or homicidal ideation. Cognition is impaired. Insight and judgment are impaired. Assessment/Plan Status: unchanged Assessment/Plan: ASSESSMENT: Stable. PLAN: 1. We will continue p.r.n. medication. 2. Discussed with the nurse. Anu Hubbard MD November 23, 2019 22:54
[2019-11-24] VITALS: BP 132/75
[2019-11-24 04:00] VITALS: BP 114/77
[2019-11-24 08:00] VITALS: BP 152/76
[2019-11-24] MEDS: Aspirin EC 81mg tab ORAL SCH (08:09)
[2019-11-24] MEDS: Ascorbic Acid 500mg tab ORAL SCH (08:10)
[2019-11-24] MEDS: Lactulose 10gm/15ml UDC ORAL SCH ×3 (08:11→17:32)
[2019-11-24] MEDS: Heparin 5000 units/ml inj SUBQ SCH ×2 (08:11→22:57)
--- NOTE | 2019-11-24 09:25 | Pulmonology Progress Note ---
Subjective ROS Limited/Unobtainable: No Interval Events: Now on 2L/min O2; none new Constitutional: Reports: no symptoms HEENT: Repors: no symptoms Respiratory: Reports: no symptoms Cardiovascular: Reports: no symptoms Gastrointestinal/Abdominal: Reports: no symptoms Allergies: Coded Allergies: SULFAMETHOXAZOLE (Verified Allergy, Unknown, 11/03/19) TRIMETHOPRIM (Verified Allergy, Unknown, 11/03/19) All Systems: reviewed and negative except above Objective Last 24 Hour Vital Signs Date Time Temp Pulse Resp B/P (MAP) Pulse Ox O2 Delivery O2 Flow Rate FiO2 11/24/19 08:30 Nasal Cannula 2.0 11/24/19 08:00 98.8 107 19 152/76 (101) 94 11/24/19 04:00 98.2 82 20 114/77 (89) 95 11/24/19 00:00 99.0 95 26 132/75 (94) 93 11/23/19 20:25 97 Nasal Cannula 2.0 28 11/23/19 20:11 Nasal Cannula 2.0 11/23/19 20:00 97.5 86 20 118/83 (95) 94 11/23/19 16:00 97.8 81 19 120/63 (82) 98 11/23/19 12:00 98.8 89 19 109/67 (81) 97 Intake and Output 11/23/19 11/24/19 19:00 07:00 Intake Total 1270 ml 500 ml Balance 1270 ml 500 ml Intake Oral 500 ml IV Total 470 ml Other 800 ml # Voids 1 3 # Bowel Movements 2 2 General Appearance: no acute distress HEENT: mucous membranes moist Respiratory/Chest: chest wall non-tender, decreased breath sounds Cardiovascular: normal peripheral pulses Abdomen: normal bowel sounds Extremities: no cyanosis Neurologic/Psychiatric: alert, responsive Microbiology Date/Time Source Procedure Growth Status 11/21/19 13:00 Straight Cath Urine Culture - Final NO GROWTH AFTER 48 HOURS Complete Laboratory Tests 11/24/19 07:10: White Blood Count [Pending], Red Blood Count [Pending], Hemoglobin [Pending], Hematocrit [Pending], Mean Corpuscular Volume [Pending], Mean Corpuscular Hemoglobin [Pending], Mean Corpuscular Hemoglobin Concent [Pending], Red Cell Distribution Width [Pending], Platelet Count [Pending], Mean Platelet Volume [ Pending], Neutrophils (%) (Auto) [Pending], Lymphocytes (%) (Auto) [Pending], Monocytes (%) (Auto) [Pending], Eosinophils (%) (Auto) [Pending], Basophils (%) (Auto) [Pending], Sodium Level [Pending], Potassium Level [Pending], Chloride Level [Pending], Carbon Dioxide Level [Pending], Blood Urea Nitrogen [Pending], Creatinine [Pending], Estimat Glomerular Filtration Rate [Pending], Glucose Level [Pending], Calcium Level [Pending] Current Medications Medications (Trade) Dose Ordered Sig/Maryam Route PRN Reason Start Time Stop Time Status Last Admin Dose Admin Acetaminophen (Tylenol) 650 mg Q4H PRN ORAL MILD PAIN/TEMP >100.5 11/19/19 17:15 12/19/19 17:14 11/22/19 16:59 Ascorbic Acid (Vitamin C) 500 mg DAILY ORAL 11/17/19 09:00 12/08/19 08:59 11/24/19 08:10 Aspirin (Ecotrin) 81 mg DAILY ORAL 11/17/19 09:00 12/20/19 08:59 11/24/19 08:09 Dextrose (Dextrose 50%) 25 ml Q30M PRN IV Hypoglycemia 11/16/19 16:45 02/02/20 10:44 Dextrose (Dextrose 50%) 50 ml Q30M PRN IV Hypoglycemia 11/16/19 16:45 02/02/20 10:44 Diphenhydramine HCl (Benadryl) 50 mg Q6H PRN ORAL Itching 11/20/19 13:55 12/20/19 13:54 11/20/19 23:49 Docusate Sodium (Colace) 100 mg TIDPRN PRN ORAL Constipation 11/16/19 16:35 12/16/19 16:34 Haloperidol Lactate (Haldol) 5 mg Q6H PRN IM Agitation 11/20/19 15:45 01/04/20 15:44 Heparin Sodium (Porcine) (Heparin 5000 units/ml) 5,000 units EVERY 12 HOURS SUBQ 11/16/19 21:00 12/27/19 20:59 11/24/19 08:11 Lactulose (Cephulac) 10 gm THREE TIMES A DAY ORAL 11/16/19 18:00 12/13/19 12:59 11/23/19 17:16 Multivitamins (Multivitamins) 1 tab DAILY ORAL 11/17/19 09:00 12/08/19 08:59 11/24/19 08:10 Polyethylene Glycol (Miralax) 17 gm BEDTIME ORAL 11/16/19 21:00 12/13/19 20:59 11/22/19 20:09 Assessment/Plan Assessment/Plan IMPRESSION: 1. UTI. 2. Hypoxemia. Improving; now on 2L/min 3. Hypertension. 4. Diabetes mellitus. 5. Previous CVA. 6. Cognitive impairment. 7. care home resident. 8. Bactrim allergy. 9. COVID 19 positive DISCUSSION: Continue oxygen and pulmonary hygiene. 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 SaO2 95% on 2L/min Contine med surg Follow up CXR is better Mara Arellano Omar Syed MD November 24, 2019 09:25
[2019-11-24 09:31] LABS: HEMATOCRIT 35.7 % (37.0-47.0); MEAN CORPUSCULAR VOLUME 88 FL (80-99); PLATELET COUNT 196 K/UL (150-450); RED BLOOD COUNT 4.04 M/UL (4.20-5.40); RED CELL DISTRIBUTION WIDTH 13.6 % (11.6-14.8); WHITE BLOOD COUNT 11.8 K/UL (4.8-10.8)
--- NOTE | 2019-11-24 09:52 | Nephrology Progress Note ---
Assessment/Plan Problem List: (1) Renal failure (2) Electrolyte imbalance (3) Pneumonia due to COVID-19 virus (4) UTI (urinary tract infection) (5) Diabetes Assessment Renal parameters suggest dehydration and free water deficit, and also effect of Lasix use in the past Hypernatremia, Azotemia, high uric acid COVID positive pneumonia UTI Diabetes mellitus Hypertension History of CVA Allergy to Bactrim [facility] resident Plan BMP results pending today D5W as needed for hypernatremia Continue per current treatment plan Abnormal electrolytes improving Monitor electrolytes and renal parameters Continue per consultants Per orders Positive for COVID-19 test Subjective ROS Limited/Unobtainable: No Constitutional: Reports: malaise, weakness Objective Objective Last 24 Hour Vital Signs Date Time Temp Pulse Resp B/P (MAP) Pulse Ox O2 Delivery O2 Flow Rate FiO2 11/24/19 08:30 Nasal Cannula 2.0 11/24/19 08:00 98.8 107 19 152/76 (101) 94 11/24/19 04:00 98.2 82 20 114/77 (89) 95 11/24/19 00:00 99.0 95 26 132/75 (94) 93 11/23/19 20:25 97 Nasal Cannula 2.0 28 11/23/19 20:11 Nasal Cannula 2.0 11/23/19 20:00 97.5 86 20 118/83 (95) 94 11/23/19 16:00 97.8 81 19 120/63 (82) 98 11/23/19 12:00 98.8 89 19 109/67 (81) 97 Intake and Output 11/23/19 11/24/19 19:00 07:00 Intake Total 1270 ml 500 ml Balance 1270 ml 500 ml Intake Oral 500 ml IV Total 470 ml Other 800 ml # Voids 1 3 # Bowel Movements 2 2 Laboratory Tests 11/24/19 07:10: White Blood Count 11.8#H, Red Blood Count 4.04L, Hemoglobin 12.0, Hematocrit 35.7L, Mean Corpuscular Volume 88, Mean Corpuscular Hemoglobin 29.8, Mean Corpuscular Hemoglobin Concent 33.7, Red Cell Distribution Width 13.6, Platelet Count 196, Mean Platelet Volume 5.5L, Neutrophils (%) (Auto) , Lymphocytes (%) ( Auto) , Monocytes (%) (Auto) , Eosinophils (%) (Auto) , Basophils (%) (Auto) , Neutrophils % (Manual) [Pending], Lymphocytes % (Manual) [Pending], Platelet Estimate [Pending], Platelet Morphology [Pending], Sodium Level [Pending], Potassium Level [Pending], Chloride Level [Pending], Carbon Dioxide Level [ Pending], Blood Urea Nitrogen [Pending], Creatinine [Pending], Estimat Glomerular Filtration Rate [Pending], Glucose Level [Pending], Calcium Level [ Pending] Height (Feet): 5 Height (Inches): 3.00 Weight (Pounds): 146 General Appearance: no apparent distress Cardiovascular: tachycardia Objective No change Wisam Love MD November 24, 2019 09:52
[2019-11-24 09:57] LABS: ANION GAP 11 mmol/L (5-15); BLOOD UREA NITROGEN 14 mg/dL (7-18); CALCIUM 8.5 MG/DL (8.5-10.1); CARBON DIOXIDE 25 MMOL/L (21-32); CHLORIDE 109 MMOL/L (98-107); CREATININE 0.6 MG/DL (0.55-1.30); POTASSIUM 3.7 MMOL/L (3.5-5.1); SODIUM 145 MMOL/L (136-145)
--- NOTE | 2019-11-24 10:27 | General Progress Note ---
Assessment/Plan Problem List: (1) Malnutrition ICD Codes: E46 - Unspecified protein-calorie malnutrition SNOMED: 84773184 (2) Anemia ICD Codes: D64.9 - Anemia, unspecified SNOMED: 610633758 (3) Fever ICD Codes: R50.9 - Fever, unspecified SNOMED: 753815032 (4) CVA (cerebral vascular accident) ICD Codes: I63.9 - Cerebral infarction, unspecified SNOMED: 844565439 (5) HTN (hypertension) ICD Codes: I10 - Essential (primary) hypertension SNOMED: 96546595 (6) Diabetes ICD Codes: E11.9 - Type 2 diabetes mellitus without complications SNOMED: 79682176 (7) Renal failure ICD Codes: N19 - Unspecified kidney failure SNOMED: 73948693 (8) Confusion ICD Codes: R41.0 - Disorientation, unspecified SNOMED: 555932451 (9) Hypoxia ICD Codes: R09.02 - Hypoxemia SNOMED: 493465792 (10) Suspected 2019 novel coronavirus infection ICD Codes: R68.89 - Other general symptoms and signs SNOMED: 713241521 (11) UTI (urinary tract infection) ICD Codes: N39.0 - Urinary tract infection, site not specified SNOMED: 54561613 Status: unchanged Assessment/Plan: o2 pulm tx abx bp bs control cbc bmp am Subjective Constitutional: Reports: weakness Allergies: Coded Allergies: SULFAMETHOXAZOLE (Verified Allergy, Unknown, 11/03/19) TRIMETHOPRIM (Verified Allergy, Unknown, 11/03/19) All Systems: reviewed and negative except above Subjective o2 nc calm in bed Objective Last 24 Hour Vital Signs Date Time Temp Pulse Resp B/P (MAP) Pulse Ox O2 Delivery O2 Flow Rate FiO2 11/24/19 08:30 Nasal Cannula 2.0 11/24/19 08:00 98.8 107 19 152/76 (101) 94 11/24/19 04:00 98.2 82 20 114/77 (89) 95 11/24/19 00:00 99.0 95 26 132/75 (94) 93 11/23/19 20:25 97 Nasal Cannula 2.0 28 11/23/19 20:11 Nasal Cannula 2.0 11/23/19 20:00 97.5 86 20 118/83 (95) 94 11/23/19 16:00 97.8 81 19 120/63 (82) 98 11/23/19 12:00 98.8 89 19 109/67 (81) 97 Intake and Output 11/23/19 11/24/19 19:00 07:00 Intake Total 1270 ml 500 ml Balance 1270 ml 500 ml Intake Oral 500 ml IV Total 470 ml Other 800 ml # Voids 1 3 # Bowel Movements 2 2 Laboratory Tests 11/24/19 07:10: White Blood Count 11.8#H, Red Blood Count 4.04L, Hemoglobin 12.0, Hematocrit 35.7L, Mean Corpuscular Volume 88, Mean Corpuscular Hemoglobin 29.8, Mean Corpuscular Hemoglobin Concent 33.7, Red Cell Distribution Width 13.6, Platelet Count 196, Mean Platelet Volume 5.5L, Neutrophils (%) (Auto) , Lymphocytes (%) ( Auto) , Monocytes (%) (Auto) , Eosinophils (%) (Auto) , Basophils (%) (Auto) , Neutrophils % (Manual) [Pending], Lymphocytes % (Manual) [Pending], Platelet Estimate [Pending], Platelet Morphology [Pending], Sodium Level 145, Potassium Level 3.7, Chloride Level 109H, Carbon Dioxide Level 25, Anion Gap 11, Blood Urea Nitrogen 14, Creatinine 0.6, Estimat Glomerular Filtration Rate > 60, Glucose Level 89, Calcium Level 8.5 Height (Feet): 5 Height (Inches): 3.00 Weight (Pounds): 146 General Appearance: lethargic EENT: normal ENT inspection Neck: normal inspection Cardiovascular: normal rate, regular rhythm Respiratory/Chest: no respiratory distress, no accessory muscle use Extremities: normal inspection Skin: normal pigmentation Trevor Cabrera DO November 24, 2019 10:27
[2019-11-24 12:06] VITALS: BP 132/83
--- NOTE | 2019-11-24 12:19 | GI Progress Note ---
Assessment/Plan Problems: (1) Malnutrition ICD Codes: E46 - Unspecified protein-calorie malnutrition SNOMED: 59133275 (2) Anemia ICD Codes: D64.9 - Anemia, unspecified SNOMED: 714522570 (3) Pneumonia due to COVID-19 virus ICD Codes: U07.1 - COVID-19; J12.89 - Other viral pneumonia SNOMED: 298481090, 343352785 (4) Diabetes ICD Codes: E11.9 - Type 2 diabetes mellitus without complications SNOMED: 94951303 (5) Electrolyte imbalance ICD Codes: E87.8 - Other disorders of electrolyte and fluid balance, not elsewhere classified SNOMED: 446076456 Status: unchanged Status Narrative Discussed with Dr. Noe. Assessment/Plan bowel regimen tyroid labs>>> reviewed monitor bowel movements will fu The patient was seen and examined at bedside and all new and available data was reviewed in the patients chart. I agree with the above findings, impression and plan. (Patient seen earlier today. Signature stamp does not reflect patient encounter time.). - Luke Noe MD Subjective Subjective limited Objective Last 24 Hour Vital Signs Date Time Temp Pulse Resp B/P (MAP) Pulse Ox O2 Delivery O2 Flow Rate FiO2 11/24/19 12:06 97.5 83 11 132/83 (99) 95 11/24/19 08:30 Nasal Cannula 2.0 11/24/19 08:00 98.8 107 19 152/76 (101) 94 11/24/19 04:00 98.2 82 20 114/77 (89) 95 11/24/19 00:00 99.0 95 26 132/75 (94) 93 11/23/19 20:25 97 Nasal Cannula 2.0 28 11/23/19 20:11 Nasal Cannula 2.0 11/23/19 20:00 97.5 86 20 118/83 (95) 94 11/23/19 16:00 97.8 81 19 120/63 (82) 98 Intake and Output 11/23/19 11/24/19 19:00 07:00 Intake Total 1270 ml 500 ml Balance 1270 ml 500 ml Intake Oral 500 ml IV Total 470 ml Other 800 ml # Voids 1 3 # Bowel Movements 2 2 Laboratory Tests Test 11/24/19 07:10 White Blood Count 11.8 K/UL (4.8-10.8) #H Red Blood Count 4.04 M/UL (4.20-5.40) L Hemoglobin 12.0 G/DL (12.0-16.0) Hematocrit 35.7 % (37.0-47.0) L Mean Corpuscular Volume 88 FL (80-99) Mean Corpuscular Hemoglobin 29.8 PG (27.0-31.0) Mean Corpuscular Hemoglobin Concent 33.7 G/DL (32.0-36.0) Red Cell Distribution Width 13.6 % (11.6-14.8) Platelet Count 196 K/UL (150-450) Mean Platelet Volume 5.5 FL (6.5-10.1) L Neutrophils (%) (Auto) % (45.0-75.0) Lymphocytes (%) (Auto) % (20.0-45.0) Monocytes (%) (Auto) % (1.0-10.0) Eosinophils (%) (Auto) % (0.0-3.0) Basophils (%) (Auto) % (0.0-2.0) Differential Total Cells Counted 100 Neutrophils % (Manual) 57 % (45-75) Lymphocytes % (Manual) 33 % (20-45) Monocytes % (Manual) 4 % (1-10) Eosinophils % (Manual) 6 % (0-3) H Basophils % (Manual) 0 % (0-2) Band Neutrophils 0 % (0-8) Platelet Estimate Adequate Platelet Morphology Normal Red Blood Cell Morphology Normal Sodium Level 145 MMOL/L (136-145) Potassium Level 3.7 MMOL/L (3.5-5.1) Chloride Level 109 MMOL/L (98-107) H Carbon Dioxide Level 25 MMOL/L (21-32) Anion Gap 11 mmol/L (5-15) Blood Urea Nitrogen 14 mg/dL (7-18) Creatinine 0.6 MG/DL (0.55-1.30) Estimat Glomerular Filtration Rate > 60 mL/min (>60) Glucose Level 89 MG/DL (74-106) Calcium Level 8.5 MG/DL (8.5-10.1) Height (Feet): 5 Height (Inches): 3.00 Weight (Pounds): 146 General Appearance: WD/WN, no apparent distress, alert Cardiovascular: normal rate Respiratory/Chest: normal breath sounds, no respiratory distress Abdominal Exam: normal bowel sounds, non tender, soft Extremities: normal range of motion, non-tender Angelique Fraga NP November 24, 2019 12:19
[2019-11-24 15:55] VITALS: BP 131/75
--- NOTE | 2019-11-24 17:02 | Surgery Progress Note ---
Surgery Progress Note Subjective Additional Comments resting comfortable playing with spray cap bottle top no n/v/f/c Objective Last 24 Hour Vital Signs Date Time Temp Pulse Resp B/P (MAP) Pulse Ox O2 Delivery O2 Flow Rate FiO2 11/24/19 15:55 98.0 89 18 131/75 (93) 96 11/24/19 12:06 97.5 83 18 132/83 (99) 95 11/24/19 08:30 Nasal Cannula 2.0 11/24/19 08:00 98.8 107 19 152/76 (101) 94 11/24/19 04:00 98.2 82 20 114/77 (89) 95 11/24/19 00:00 99.0 95 26 132/75 (94) 93 11/23/19 20:25 97 Nasal Cannula 2.0 28 11/23/19 20:11 Nasal Cannula 2.0 11/23/19 20:00 97.5 86 20 118/83 (95) 94 I&O Intake and Output 11/23/19 11/24/19 19:00 07:00 Intake Total 1270 ml 500 ml Balance 1270 ml 500 ml Intake Oral 500 ml IV Total 470 ml Other 800 ml # Voids 1 3 # Bowel Movements 2 2 Dressing: other Wound: other Drains: other Cardiovascular: RSR Respiratory: decreased breath sounds Abdomen: soft, non-tender, present bowel sounds Extremities: no cyanosis Laboratory Tests Test 11/24/19 07:10 White Blood Count 11.8 K/UL (4.8-10.8) #H Red Blood Count 4.04 M/UL (4.20-5.40) L Hemoglobin 12.0 G/DL (12.0-16.0) Hematocrit 35.7 % (37.0-47.0) L Mean Corpuscular Volume 88 FL (80-99) Mean Corpuscular Hemoglobin 29.8 PG (27.0-31.0) Mean Corpuscular Hemoglobin Concent 33.7 G/DL (32.0-36.0) Red Cell Distribution Width 13.6 % (11.6-14.8) Platelet Count 196 K/UL (150-450) Mean Platelet Volume 5.5 FL (6.5-10.1) L Neutrophils (%) (Auto) % (45.0-75.0) Lymphocytes (%) (Auto) % (20.0-45.0) Monocytes (%) (Auto) % (1.0-10.0) Eosinophils (%) (Auto) % (0.0-3.0) Basophils (%) (Auto) % (0.0-2.0) Differential Total Cells Counted 100 Neutrophils % (Manual) 57 % (45-75) Lymphocytes % (Manual) 33 % (20-45) Monocytes % (Manual) 4 % (1-10) Eosinophils % (Manual) 6 % (0-3) H Basophils % (Manual) 0 % (0-2) Band Neutrophils 0 % (0-8) Platelet Estimate Adequate Platelet Morphology Normal Red Blood Cell Morphology Normal Sodium Level 145 MMOL/L (136-145) Potassium Level 3.7 MMOL/L (3.5-5.1) Chloride Level 109 MMOL/L (98-107) H Carbon Dioxide Level 25 MMOL/L (21-32) Anion Gap 11 mmol/L (5-15) Blood Urea Nitrogen 14 mg/dL (7-18) Creatinine 0.6 MG/DL (0.55-1.30) Estimat Glomerular Filtration Rate > 60 mL/min (>60) Glucose Level 89 MG/DL (74-106) Calcium Level 8.5 MG/DL (8.5-10.1) Plan Problems: (1) Hypoxia Assessment & Plan: supplemental O2 monitor closely (2) UTI (urinary tract infection) (3) Suspected 2019 novel coronavirus infection (4) Pneumonia due to COVID-19 virus Assessment & Plan: The heart is borderline enlarged. There are bilateral interstitial opacities diffusely. No definite focal airspace consolidation. The pleural spaces are clear. Impression: Borderline cardiomegaly. Bilateral interstitial disease. This is nonspecific, could indicate infiltrates, edema, among other possibilities on Non rebreather can desaturate Slightly improved but persistent and still extensive bilateral infiltrates (5) Fever (6) Anemia (7) Confusion (8) Diabetes (9) Renal failure (10) Malnutrition Assessment & Plan: DAILY ESTIMATED NEEDS: Needs based on Wound, DM/ 53kg abw 25-30 kcals/kg 9163-8440 total kcals 1.25-1.5 g protein/kg 66-79 g total protein 25-30 mL/kg 0050-6055 total fluid mLs NUTRITION DIAGNOSIS: * Increased kcal/prot intake needs R/T wound healing as evidenced by admitted w/ DTPI wound @ L ischium, non-blanching erythema at cleft of buttocks. * Altered nutrition related lab values R/T diabetes as evidenced by elev POC glu (174, 102, 151, 123, now improved), on NISS. CURRENT DIET:REGULAR PO DIET RECOMMENDATIONS: CCHO med/ texture as tolerated or per REUSE TECHNICIAN ADDITIONAL RECOMMENDATIONS: * Per SNF: HT=61" [id number] * Wound healing: add MVI x 1, Vit C 500mg QD, SYED BID * sliding scale insulin prn * Texture downgrade for chewing deficit as per RN -> consider pureed, rec REUSE TECHNICIAN eval * High kcal supplement w/ meals, will start w/ Ensure Clear and monitor acceptance (250 kcal/ 8g pro each) (11) HTN (hypertension) (12) CVA (cerebral vascular accident) (13) Decubitus skin ulcer Assessment & Plan: Pt presented on admission with DTPI L ischium. Base of wound is purple, indurated. An area of hyperpigmentation noted distally but in close to wound bed. Non-blanching erythema cleft of buttocks. Hyperpigmentation from previous wound noted to R ischium. Within area of hyperpigmentation an area of non-blanchable erythema noted. No other skin concerns noted. fortunately DTI improving with close care and monitoring nutritional improvement necessary still as abl now 2.3 cont diet push intake will monitor Tx.Plan: Apply Moisture Barrier Paste to Sacrum. Cover with Optifoam drsg. Change every 3 days and prn. Apply Moisture Barrier Paste to R and L Ischium. Cover each area with Optifoam drsg. Change every 3 days and prn. Apply Cavilon Skin Barrier to both heels. Cover each heel with Optifoam drsg. Change every 7 days and prn. Reposition at least every 2hours or as tolerated. Off-load heels with Pillow. DAILY ESTIMATED NEEDS: Needs based on Wound, DM/ 53kg abw 25-30 kcals/kg 8225-7468 total kcals 1.25-1.5 g protein/kg 66-79 g total protein 25-30 mL/kg 9727-9710 total fluid mLs NUTRITION DIAGNOSIS: * Increased kcal/prot intake needs R/T wound healing as evidenced by admitted w/ DTPI wound @ L ischium, non-blanching erythema at cleft of buttocks. * Altered nutrition related lab values R/T diabetes as evidenced by elev POC glu (174, 102, 151, 123), on NISS. CURRENT DIET:REGULAR PO DIET RECOMMENDATIONS: CCHO med/ texture as tolerated or per REUSE TECHNICIAN ADDITIONAL RECOMMENDATIONS: * Per SNF: HT=61" [id number] * Wound healing: add MVI x 1, Vit C 500mg QD add Syed BID * Texture downgrade for chewing deficit as per RN -> consider pureed * Glucerna x 1 with variable intake (220kcal/10g prot each) Humble Sewell November 24, 2019 17:01
[2019-11-24 20:00] VITALS: BP 136/81
[2019-11-24] MEDS: Miralax 17gm pkt ORAL SCH (22:40)
--- NOTE | 2019-11-24 23:40 | Psych Consult Progress Note ---
Psychiatry Progress Note Psychiatry Progress Note Medications Current Medications Medications (Trade) Dose Ordered Sig/Maryam Route PRN Reason Start Time Stop Time Status Last Admin Dose Admin Acetaminophen (Tylenol) 650 mg Q4H PRN ORAL MILD PAIN/TEMP >100.5 11/19/19 17:15 12/19/19 17:14 11/22/19 16:59 Ascorbic Acid (Vitamin C) 500 mg DAILY ORAL 11/17/19 09:00 12/08/19 08:59 11/24/19 08:10 Aspirin (Ecotrin) 81 mg DAILY ORAL 11/17/19 09:00 12/20/19 08:59 11/24/19 08:09 Dextrose (Dextrose 50%) 25 ml Q30M PRN IV Hypoglycemia 11/16/19 16:45 02/02/20 10:44 Dextrose (Dextrose 50%) 50 ml Q30M PRN IV Hypoglycemia 11/16/19 16:45 02/02/20 10:44 Diphenhydramine HCl (Benadryl) 50 mg Q6H PRN ORAL Itching 11/20/19 13:55 12/20/19 13:54 11/20/19 23:49 Docusate Sodium (Colace) 100 mg TIDPRN PRN ORAL Constipation 11/16/19 16:35 12/16/19 16:34 Haloperidol Lactate (Haldol) 5 mg Q6H PRN IM Agitation 11/20/19 15:45 01/04/20 15:44 Heparin Sodium (Porcine) (Heparin 5000 units/ml) 5,000 units EVERY 12 HOURS SUBQ 11/16/19 21:00 12/27/19 20:59 11/24/19 22:57 Lactulose (Cephulac) 10 gm THREE TIMES A DAY ORAL 11/16/19 18:00 12/13/19 12:59 11/24/19 17:32 Multivitamins (Multivitamins) 1 tab DAILY ORAL 11/17/19 09:00 12/08/19 08:59 11/24/19 08:10 Polyethylene Glycol (Miralax) 17 gm BEDTIME ORAL 11/16/19 21:00 12/13/19 20:59 11/22/19 20:09 Neurological/Psychiatric: Reports: anxiety, depressed, emotional problems Allergies: Coded Allergies: SULFAMETHOXAZOLE (Verified Allergy, Unknown, 11/03/19) TRIMETHOPRIM (Verified Allergy, Unknown, 11/03/19) Objective Data Height (Feet): 5 Height (Inches): 3.00 Weight (Pounds): 146 Additional Comments: alert and disoriented to situation and date. Mood is anxious. Affect is flat. Thought process is concrete. Thought content, no suicidal or homicidal ideation. Cognition is impaired. Insight and judgment are impaired. ASSESSMENT: Stable. PLAN: 1. We will continue p.r.n. medication. 2. Discussed with the nurse. Assessment/Plan Status: unchanged Assessment/Plan: ASSESSMENT: Stable. PLAN: 1. We will continue p.r.n. medication. 2. Discussed with the nurse. Anu Hubbard MD November 24, 2019 23:40
[2019-11-25] VITALS: BP 130/92
[2019-11-25 04:00] VITALS: BP 135/85
[2019-11-25 07:09] LABS: HEMATOCRIT 32.7 % (37.0-47.0); HEMOGLOBIN 11.2 G/DL (12.0-16.0); LYMPHOCYTES % (AUTO) 31.8 % (20.0-45.0); MEAN CORPUSCULAR VOLUME 88 FL (80-99); MONOCYTES % (AUTO) 7.6 % (1.0-10.0); NEUTROPHILS % (AUTO) 53.6 % (45.0-75.0); PLATELET COUNT 215 K/UL (150-450); RED BLOOD COUNT 3.73 M/UL (4.20-5.40); RED CELL DISTRIBUTION WIDTH 13.6 % (11.6-14.8); WHITE BLOOD COUNT 15.1 K/UL (4.8-10.8)
[2019-11-25 07:25] LABS: ANION GAP 12 mmol/L (5-15); BLOOD UREA NITROGEN 13 mg/dL (7-18); CARBON DIOXIDE 25 MMOL/L (21-32); CHLORIDE 108 MMOL/L (98-107); CREATININE 0.8 MG/DL (0.55-1.30); POTASSIUM 3.1 MMOL/L (3.5-5.1); SODIUM 145 MMOL/L (136-145)
[2019-11-25 08:00] VITALS: BP 130/80
[2019-11-25] MEDS: Lactulose 10gm/15ml UDC ORAL SCH ×3 (09:13→17:39)
[2019-11-25] MEDS: Aspirin EC 81mg tab ORAL SCH (09:13)
[2019-11-25] MEDS: Ascorbic Acid 500mg tab ORAL SCH (09:13)
[2019-11-25] MEDS: Heparin 5000 units/ml inj SUBQ SCH ×2 (09:15→20:54)
--- NOTE | 2019-11-25 09:53 | General Progress Note ---
Assessment/Plan Problem List: (1) Electrolyte imbalance ICD Codes: E87.8 - Other disorders of electrolyte and fluid balance, not elsewhere classified SNOMED: 054238091 (2) Decubitus skin ulcer ICD Codes: L89.90 - Pressure ulcer of unspecified site, unspecified stage SNOMED: 258062530 (3) HTN (hypertension) ICD Codes: I10 - Essential (primary) hypertension SNOMED: 61735193 (4) CVA (cerebral vascular accident) ICD Codes: I63.9 - Cerebral infarction, unspecified SNOMED: 615504338 (5) Malnutrition ICD Codes: E46 - Unspecified protein-calorie malnutrition SNOMED: 33820262 (6) Diabetes ICD Codes: E11.9 - Type 2 diabetes mellitus without complications SNOMED: 56733303 (7) Anemia ICD Codes: D64.9 - Anemia, unspecified SNOMED: 161069631 (8) Pneumonia due to COVID-19 virus ICD Codes: U07.1 - COVID-19; J12.89 - Other viral pneumonia SNOMED: 658800559, 297407146 (9) UTI (urinary tract infection) ICD Codes: N39.0 - Urinary tract infection, site not specified SNOMED: 72505549 Status: unchanged Assessment/Plan: bowel regimen tyroid labs>>> reviewed monitor bowel movements will fu Subjective ROS Limited/Unobtainable: No Allergies: Coded Allergies: SULFAMETHOXAZOLE (Verified Allergy, Unknown, 11/03/19) TRIMETHOPRIM (Verified Allergy, Unknown, 11/03/19) Objective Last 24 Hour Vital Signs Date Time Temp Pulse Resp B/P (MAP) Pulse Ox O2 Delivery O2 Flow Rate FiO2 11/25/19 09:00 Nasal Cannula 2.0 11/25/19 08:00 98.5 87 18 130/80 (97) 95 11/25/19 04:00 98.4 104 18 135/85 (102) 93 11/25/19 00:00 97.5 96 20 130/92 (105) 94 11/24/19 21:28 95 Nasal Cannula 2.0 28 11/24/19 20:14 Nasal Cannula 2.0 11/24/19 20:00 98.1 97 20 136/81 (99) 94 11/24/19 15:55 98.0 89 18 131/75 (93) 96 11/24/19 12:06 97.5 83 18 132/83 (99) 95 Intake and Output 11/24/19 11/25/19 19:00 07:00 Intake Total 1400 ml Balance 1400 ml Intake Oral 600 ml Other 800 ml # Voids 3 3 # Bowel Movements 2 Laboratory Tests 11/25/19 06:00: White Blood Count 15.1H, Red Blood Count 3.73L, Hemoglobin 11.2L, Hematocrit 32.7L, Mean Corpuscular Volume 88, Mean Corpuscular Hemoglobin 30.1, Mean Corpuscular Hemoglobin Concent 34.4, Red Cell Distribution Width 13.6, Platelet Count 215, Mean Platelet Volume 5.7L, Neutrophils (%) (Auto) 53.6, Lymphocytes ( %) (Auto) 31.8, Monocytes (%) (Auto) 7.6, Eosinophils (%) (Auto) 6.0H, Basophils (%) (Auto) 1.0, Sodium Level 145, Potassium Level 3.1L, Chloride Level 108H, Carbon Dioxide Level 25, Anion Gap 12, Blood Urea Nitrogen 13, Creatinine 0.8, Estimat Glomerular Filtration Rate > 60, Glucose Level 106, Calcium Level 9.0 Height (Feet): 5 Height (Inches): 3.00 Weight (Pounds): 146 General Appearance: no apparent distress EENT: PERRL/EOMI Neck: supple Cardiovascular: normal rate Respiratory/Chest: decreased breath sounds Abdomen: normal bowel sounds, non tender, soft Extremities: non-tender Luke Noe MD November 25, 2019 09:53
--- NOTE | 2019-11-25 10:07 | General Progress Note ---
Assessment/Plan Problem List: (1) Malnutrition ICD Codes: E46 - Unspecified protein-calorie malnutrition SNOMED: 47200992 (2) Anemia ICD Codes: D64.9 - Anemia, unspecified SNOMED: 939231165 (3) Fever ICD Codes: R50.9 - Fever, unspecified SNOMED: 117930005 (4) CVA (cerebral vascular accident) ICD Codes: I63.9 - Cerebral infarction, unspecified SNOMED: 103316530 (5) HTN (hypertension) ICD Codes: I10 - Essential (primary) hypertension SNOMED: 82707098 (6) Diabetes ICD Codes: E11.9 - Type 2 diabetes mellitus without complications SNOMED: 95803461 (7) Renal failure ICD Codes: N19 - Unspecified kidney failure SNOMED: 08556195 (8) Confusion ICD Codes: R41.0 - Disorientation, unspecified SNOMED: 223784065 (9) Hypoxia ICD Codes: R09.02 - Hypoxemia SNOMED: 356645400 (10) Suspected 2019 novel coronavirus infection ICD Codes: R68.89 - Other general symptoms and signs SNOMED: 329790324 (11) UTI (urinary tract infection) ICD Codes: N39.0 - Urinary tract infection, site not specified SNOMED: 35092369 Status: unchanged Assessment/Plan: o2 pulm tx abx bp bs control cbc bmp am Subjective Constitutional: Reports: weakness Allergies: Coded Allergies: SULFAMETHOXAZOLE (Verified Allergy, Unknown, 11/03/19) TRIMETHOPRIM (Verified Allergy, Unknown, 11/03/19) All Systems: reviewed and negative except above Subjective o2 nc calm in bed Objective Last 24 Hour Vital Signs Date Time Temp Pulse Resp B/P (MAP) Pulse Ox O2 Delivery O2 Flow Rate FiO2 11/25/19 09:00 Nasal Cannula 2.0 11/25/19 08:00 98.5 87 18 130/80 (97) 95 11/25/19 04:00 98.4 104 18 135/85 (102) 93 11/25/19 00:00 97.5 96 20 130/92 (105) 94 11/24/19 21:28 95 Nasal Cannula 2.0 28 11/24/19 20:14 Nasal Cannula 2.0 11/24/19 20:00 98.1 97 20 136/81 (99) 94 11/24/19 15:55 98.0 89 18 131/75 (93) 96 11/24/19 12:06 97.5 83 18 132/83 (99) 95 Intake and Output 11/24/19 11/25/19 19:00 07:00 Intake Total 1400 ml Balance 1400 ml Intake Oral 600 ml Other 800 ml # Voids 3 3 # Bowel Movements 2 Laboratory Tests 11/25/19 06:00: White Blood Count 15.1H, Red Blood Count 3.73L, Hemoglobin 11.2L, Hematocrit 32.7L, Mean Corpuscular Volume 88, Mean Corpuscular Hemoglobin 30.1, Mean Corpuscular Hemoglobin Concent 34.4, Red Cell Distribution Width 13.6, Platelet Count 215, Mean Platelet Volume 5.7L, Neutrophils (%) (Auto) 53.6, Lymphocytes ( %) (Auto) 31.8, Monocytes (%) (Auto) 7.6, Eosinophils (%) (Auto) 6.0H, Basophils (%) (Auto) 1.0, Sodium Level 145, Potassium Level 3.1L, Chloride Level 108H, Carbon Dioxide Level 25, Anion Gap 12, Blood Urea Nitrogen 13, Creatinine 0.8, Estimat Glomerular Filtration Rate > 60, Glucose Level 106, Calcium Level 9.0 Height (Feet): 5 Height (Inches): 3.00 Weight (Pounds): 146 General Appearance: lethargic EENT: normal ENT inspection Neck: normal alignment Cardiovascular: normal rate, regular rhythm Respiratory/Chest: no respiratory distress, no accessory muscle use Extremities: normal inspection Skin: normal pigmentation Trevor Cabrera DO November 25, 2019 10:07
--- NOTE | 2019-11-25 11:59 | Nephrology Progress Note ---
Assessment/Plan Problem List: (1) Renal failure (2) Electrolyte imbalance (3) Pneumonia due to COVID-19 virus (4) UTI (urinary tract infection) (5) Diabetes Assessment Renal parameters suggest dehydration and free water deficit, and also effect of Lasix use in the past Hypernatremia, Azotemia, high uric acid COVID positive pneumonia UTI Diabetes mellitus Hypertension History of CVA Allergy to Bactrim [facility] resident Plan Potassium supplement as needed Previously D5W as needed for hypernatremia Continue per current treatment plan Abnormal electrolytes improving Monitor electrolytes and renal parameters Continue per consultants Per orders Positive for COVID-19 test Subjective ROS Limited/Unobtainable: No Constitutional: Reports: malaise, weakness Objective Objective Last 24 Hour Vital Signs Date Time Temp Pulse Resp B/P (MAP) Pulse Ox O2 Delivery O2 Flow Rate FiO2 11/25/19 09:00 Nasal Cannula 2.0 11/25/19 08:00 98.5 87 18 130/80 (97) 95 11/25/19 04:00 98.4 104 18 135/85 (102) 93 11/25/19 00:00 97.5 96 20 130/92 (105) 94 11/24/19 21:28 95 Nasal Cannula 2.0 28 11/24/19 20:14 Nasal Cannula 2.0 11/24/19 20:00 98.1 97 20 136/81 (99) 94 11/24/19 15:55 98.0 89 18 131/75 (93) 96 11/24/19 12:06 97.5 83 18 132/83 (99) 95 Intake and Output 11/24/19 11/25/19 19:00 07:00 Intake Total 1400 ml Balance 1400 ml Intake Oral 600 ml Other 800 ml # Voids 3 3 # Bowel Movements 2 Laboratory Tests 11/25/19 06:00: White Blood Count 15.1H, Red Blood Count 3.73L, Hemoglobin 11.2L, Hematocrit 32.7L, Mean Corpuscular Volume 88, Mean Corpuscular Hemoglobin 30.1, Mean Corpuscular Hemoglobin Concent 34.4, Red Cell Distribution Width 13.6, Platelet Count 215, Mean Platelet Volume 5.7L, Neutrophils (%) (Auto) 53.6, Lymphocytes ( %) (Auto) 31.8, Monocytes (%) (Auto) 7.6, Eosinophils (%) (Auto) 6.0H, Basophils (%) (Auto) 1.0, Sodium Level 145, Potassium Level 3.1L, Chloride Level 108H, Carbon Dioxide Level 25, Anion Gap 12, Blood Urea Nitrogen 13, Creatinine 0.8, Estimat Glomerular Filtration Rate > 60, Glucose Level 106, Calcium Level 9.0 Height (Feet): 5 Height (Inches): 3.00 Weight (Pounds): 146 General Appearance: no apparent distress Cardiovascular: tachycardia Respiratory/Chest: decreased breath sounds Abdomen: soft Objective No change Wisam Love MD November 25, 2019 11:59
[2019-11-25 12:00] VITALS: BP 136/84
--- NOTE | 2019-11-25 13:13 | Surgery Progress Note ---
Surgery Progress Note Subjective Additional Comments leukocytosis afebrile comfortable appearing cxr noted Objective Last 24 Hour Vital Signs Date Time Temp Pulse Resp B/P (MAP) Pulse Ox O2 Delivery O2 Flow Rate FiO2 11/25/19 12:00 98.3 90 18 136/84 (101) 96 11/25/19 09:00 Nasal Cannula 2.0 11/25/19 08:00 98.5 87 18 130/80 (97) 95 11/25/19 04:00 98.4 104 18 135/85 (102) 93 11/25/19 00:00 97.5 96 20 130/92 (105) 94 11/24/19 21:28 95 Nasal Cannula 2.0 28 11/24/19 20:14 Nasal Cannula 2.0 11/24/19 20:00 98.1 97 20 136/81 (99) 94 11/24/19 15:55 98.0 89 18 131/75 (93) 96 I&O Intake and Output 11/24/19 11/25/19 19:00 07:00 Intake Total 1400 ml Balance 1400 ml Intake Oral 600 ml Other 800 ml # Voids 3 3 # Bowel Movements 2 Dressing: other Wound: other Drains: other Cardiovascular: RSR Respiratory: decreased breath sounds Abdomen: soft, non-tender, present bowel sounds Extremities: no cyanosis Laboratory Tests Test 11/25/19 06:00 White Blood Count 15.1 K/UL (4.8-10.8) H Red Blood Count 3.73 M/UL (4.20-5.40) L Hemoglobin 11.2 G/DL (12.0-16.0) L Hematocrit 32.7 % (37.0-47.0) L Mean Corpuscular Volume 88 FL (80-99) Mean Corpuscular Hemoglobin 30.1 PG (27.0-31.0) Mean Corpuscular Hemoglobin Concent 34.4 G/DL (32.0-36.0) Red Cell Distribution Width 13.6 % (11.6-14.8) Platelet Count 215 K/UL (150-450) Mean Platelet Volume 5.7 FL (6.5-10.1) L Neutrophils (%) (Auto) 53.6 % (45.0-75.0) Lymphocytes (%) (Auto) 31.8 % (20.0-45.0) Monocytes (%) (Auto) 7.6 % (1.0-10.0) Eosinophils (%) (Auto) 6.0 % (0.0-3.0) H Basophils (%) (Auto) 1.0 % (0.0-2.0) Sodium Level 145 MMOL/L (136-145) Potassium Level 3.1 MMOL/L (3.5-5.1) L Chloride Level 108 MMOL/L (98-107) H Carbon Dioxide Level 25 MMOL/L (21-32) Anion Gap 12 mmol/L (5-15) Blood Urea Nitrogen 13 mg/dL (7-18) Creatinine 0.8 MG/DL (0.55-1.30) Estimat Glomerular Filtration Rate > 60 mL/min (>60) Glucose Level 106 MG/DL (74-106) Calcium Level 9.0 MG/DL (8.5-10.1) Plan Problems: (1) Hypoxia Assessment & Plan: supplemental O2 monitor closely Patchy opacities throughout the lungs, increased compared to prior exam. (2) UTI (urinary tract infection) (3) Suspected 2019 novel coronavirus infection (4) Pneumonia due to COVID-19 virus Assessment & Plan: The heart is borderline enlarged. There are bilateral interstitial opacities diffusely. No definite focal airspace consolidation. The pleural spaces are clear. Impression: Borderline cardiomegaly. Bilateral interstitial disease. This is nonspecific, could indicate infiltrates, edema, among other possibilities on Non rebreather can desaturate Slightly improved but persistent and still extensive bilateral infiltrates (5) Fever (6) Anemia (7) Confusion (8) Diabetes (9) Renal failure (10) Malnutrition Assessment & Plan: DAILY ESTIMATED NEEDS: Needs based on Wound, DM/ 53kg abw 25-30 kcals/kg 0909-2587 total kcals 1.25-1.5 g protein/kg 66-79 g total protein 25-30 mL/kg 0081-9811 total fluid mLs NUTRITION DIAGNOSIS: * Increased kcal/prot intake needs R/T wound healing as evidenced by admitted w/ DTPI wound @ L ischium, non-blanching erythema at cleft of buttocks. * Altered nutrition related lab values R/T diabetes as evidenced by elev POC glu (174, 102, 151, 123, now improved), on NISS. (INACTIVE) CURRENT DIET:[email or web address] med liquify puree NTL -> pureed w/ thin + Glucerna BID PO DIET RECOMMENDATIONS: CCHO med/ texture per MOVIE EDITOR ADDITIONAL RECOMMENDATIONS: * Per SNF: HT=61" [id number] * Wound healing: add MVI x 1, Vit C 500mg QD, SYED BID * Monitor BGs, need to resume NISS- now w improved BGs * Texture downgrade for chewing deficit as per RN now on liquify puree/ NTL -> PUREED W/ THIN (11/21) * Monitor for continued improved intake (now eating 100% per EMR) (11) HTN (hypertension) (12) CVA (cerebral vascular accident) (13) Decubitus skin ulcer Assessment & Plan: Pt presented on admission with DTPI L ischium. Base of wound is purple, indurated. An area of hyperpigmentation noted distally but in close to wound bed. Non-blanching erythema cleft of buttocks. Hyperpigmentation from previous wound noted to R ischium. Within area of hyperpigmentation an area of non-blanchable erythema noted. No other skin concerns noted. fortunately DTI improving with close care and monitoring nutritional improvement necessary still as abl now 2.3 cont diet push intake will monitor Tx.Plan: Apply Moisture Barrier Paste to Sacrum. Cover with Optifoam drsg. Change every 3 days and prn. Apply Moisture Barrier Paste to R and L Ischium. Cover each area with Optifoam drsg. Change every 3 days and prn. Apply Cavilon Skin Barrier to both heels. Cover each heel with Optifoam drsg. Change every 7 days and prn. Reposition at least every 2hours or as tolerated. Off-load heels with Pillow. DAILY ESTIMATED NEEDS: Needs based on Wound, DM/ 53kg abw 25-30 kcals/kg 2412-9937 total kcals 1.25-1.5 g protein/kg 66-79 g total protein 25-30 mL/kg 9926-1785 total fluid mLs NUTRITION DIAGNOSIS: * Increased kcal/prot intake needs R/T wound healing as evidenced by admitted w/ DTPI wound @ L ischium, non-blanching erythema at cleft of buttocks. * Altered nutrition related lab values R/T diabetes as evidenced by elev POC glu (174, 102, 151, 123), on NISS. CURRENT DIET:REGULAR PO DIET RECOMMENDATIONS: CCHO med/ texture as tolerated or per MOVIE EDITOR ADDITIONAL RECOMMENDATIONS: * Per SNF: HT=61" [id number] * Wound healing: add MVI x 1, Vit C 500mg QD add Syed BID * Texture downgrade for chewing deficit as per RN -> consider pureed * Glucerna x 1 with variable intake (220kcal/10g prot each) Humble Sewell November 25, 2019 13:13
--- NOTE | 2019-11-25 13:42 | Infectious Diseases Prog Note ---
Assessment/Plan Assessment/Plan Assessment: Sepsis Fever, recurrent; improving Acute hypoxic respiratory failure- s/p simple mask, sp NRB, now on 2l NC Pnuemonia- 2ry to COVID19 -11/22 CXR: Patchy opacities throughout the lungs, increased compared to prior exam. -11/19 CXR: Slightly improved but persistent and still extensive bilateral infiltrates, since prior exam of 3 days earlier -11/16 CXR: Diffuse bilateral airspace opacities are slightly improved. -11/13 CXR: Unchanged, over 2 days, findings as above. -11/08 CXR: Interval worsening bilateral airspace opacities, worse in the right lung. -11/05 CXR: Slight worsening of bilateral right greater than left interstitial and airspace opacities, over 3 days. Most likely pneumonia but pulmonary edema also a possibility -11/02 CXR: Borderline cardiomegaly. Bilateral interstitial disease. This is nonspecific, could indicate infiltrates, edema, among other possibilities SARS-COV2 PCR + -Influenza sc neg -Ferritin 180 (11/19), 243 (11/17),338 (11/13)<568 (11/08)<- 841 (11/06) -CRP 5 (11/19), 6.7 (11/17)< 12 (11/13)< 7.9(11/10)<-11.2 (11/08) <- 7.1 (11/06) -Tspot neg Mild leukocytosis, recurrent; increased -11/20 u/a wb 40-60, nit neg, leuk +3; ucx Neg -11/18 Bcx neg -11/13 Bcx Neg Drug rash 2ry to Zosyn UTI -11/20 UA 40-60WBC but cx ng at 48hrs -11/10 u/a wbc olivia, nit neg, leuk +3; ucx 10-20k VRE (S amp) -u/a wbc tnct, nit neg, leuk +3; ucx >100k E.coli (hernandes S), >100k P.mirabilis ( R. Ceftriaxone, bactrim) Elevated LFTs, SP Dm2 HTN CVA [facility] resident ([facility]) Plan: - Continue monitor off abx -Will not start Plaquenil as not recommended by IDSA and NIH guidelines -11/20 SP Zyvox #8, SOlumedrol 60mg IV x1 (drug allergy) -11/18 SP ZOsyn #6- ?allergic reaction -11/11 SP Cefepime #8 -11/07 SP Azithromycin #5 -11/03 SP Ceftriaxone #2 -f/u cx -Monitor CBC/CMP, temperaturse -Monitor inflammatory markers, CXR -CDiff, sp cx -CXR am -COVID isolation- repeat covid test per SNF request Thank you for consulting [facility]. Will continue to follow along wiht you. Discussed with RN Subjective Allergies: Coded Allergies: SULFAMETHOXAZOLE (Verified Allergy, Unknown, 11/03/19) TRIMETHOPRIM (Verified Allergy, Unknown, 11/03/19) Subjective afebrile >48hrs at 2l NC wbc increased Objective Vital Signs Last 24 Hour Vital Signs Date Time Temp Pulse Resp B/P (MAP) Pulse Ox O2 Delivery O2 Flow Rate FiO2 11/25/19 12:00 98.3 90 18 136/84 (101) 96 11/25/19 09:00 Nasal Cannula 2.0 11/25/19 08:00 98.5 87 18 130/80 (97) 95 11/25/19 04:00 98.4 104 18 135/85 (102) 93 11/25/19 00:00 97.5 96 20 130/92 (105) 94 11/24/19 21:28 95 Nasal Cannula 2.0 28 11/24/19 20:14 Nasal Cannula 2.0 11/24/19 20:00 98.1 97 20 136/81 (99) 94 11/24/19 15:55 98.0 89 18 131/75 (93) 96 Height (Feet): 5 Height (Inches): 3.00 Weight (Pounds): 146 Objective General Appearance: no acute distress HEENT: mucous membranes moist Respiratory/Chest: chest wall non-tender, decreased breath sounds Cardiovascular: normal peripheral pulses Abdomen: normal bowel sounds Extremities: no cyanosis Skin: erythematous maculopapular rash trunk, b/l arms, neck, face Laboratory Tests Test 11/25/19 06:00 White Blood Count 15.1 K/UL (4.8-10.8) H Red Blood Count 3.73 M/UL (4.20-5.40) L Hemoglobin 11.2 G/DL (12.0-16.0) L Hematocrit 32.7 % (37.0-47.0) L Mean Corpuscular Volume 88 FL (80-99) Mean Corpuscular Hemoglobin 30.1 PG (27.0-31.0) Mean Corpuscular Hemoglobin Concent 34.4 G/DL (32.0-36.0) Red Cell Distribution Width 13.6 % (11.6-14.8) Platelet Count 215 K/UL (150-450) Mean Platelet Volume 5.7 FL (6.5-10.1) L Neutrophils (%) (Auto) 53.6 % (45.0-75.0) Lymphocytes (%) (Auto) 31.8 % (20.0-45.0) Monocytes (%) (Auto) 7.6 % (1.0-10.0) Eosinophils (%) (Auto) 6.0 % (0.0-3.0) H Basophils (%) (Auto) 1.0 % (0.0-2.0) Sodium Level 145 MMOL/L (136-145) Potassium Level 3.1 MMOL/L (3.5-5.1) L Chloride Level 108 MMOL/L (98-107) H Carbon Dioxide Level 25 MMOL/L (21-32) Anion Gap 12 mmol/L (5-15) Blood Urea Nitrogen 13 mg/dL (7-18) Creatinine 0.8 MG/DL (0.55-1.30) Estimat Glomerular Filtration Rate > 60 mL/min (>60) Glucose Level 106 MG/DL (74-106) Calcium Level 9.0 MG/DL (8.5-10.1) Current Medications Medications (Trade) Dose Ordered Sig/Maryam Route PRN Reason Start Time Stop Time Status Last Admin Dose Admin Acetaminophen (Tylenol) 650 mg Q4H PRN ORAL MILD PAIN/TEMP >100.5 11/19/19 17:15 12/19/19 17:14 11/22/19 16:59 Ascorbic Acid (Vitamin C) 500 mg DAILY ORAL 11/17/19 09:00 12/08/19 08:59 11/25/19 09:13 Aspirin (Ecotrin) 81 mg DAILY ORAL 11/17/19 09:00 12/20/19 08:59 11/25/19 09:13 Dextrose (Dextrose 50%) 25 ml Q30M PRN IV Hypoglycemia 11/16/19 16:45 02/02/20 10:44 Dextrose (Dextrose 50%) 50 ml Q30M PRN IV Hypoglycemia 11/16/19 16:45 02/02/20 10:44 Diphenhydramine HCl (Benadryl) 50 mg Q6H PRN ORAL Itching 11/20/19 13:55 12/20/19 13:54 11/20/19 23:49 Docusate Sodium (Colace) 100 mg TIDPRN PRN ORAL Constipation 11/16/19 16:35 12/16/19 16:34 Haloperidol Lactate (Haldol) 5 mg Q6H PRN IM Agitation 11/20/19 15:45 01/04/20 15:44 Heparin Sodium (Porcine) (Heparin 5000 units/ml) 5,000 units EVERY 12 HOURS SUBQ 11/16/19 21:00 12/27/19 20:59 11/25/19 09:15 Lactulose (Cephulac) 10 gm THREE TIMES A DAY ORAL 11/16/19 18:00 12/13/19 12:59 11/25/19 12:25 Multivitamins (Multivitamins) 1 tab DAILY ORAL 11/17/19 09:00 12/08/19 08:59 11/25/19 09:13 Polyethylene Glycol (Miralax) 17 gm BEDTIME ORAL 11/16/19 21:00 12/13/19 20:59 11/22/19 20:09 Potassium Chloride (K-Dur) 40 meq TWICE A DAY ORAL 11/25/19 12:03 02/23/20 12:02 11/25/19 12:24 Jenna Briseno M.D. November 25, 2019 13:42
--- NOTE | 2019-11-25 15:53 | Pulmonology Progress Note ---
Subjective ROS Limited/Unobtainable: No Interval Events: Now on 2L/min O2; none new Constitutional: Reports: no symptoms HEENT: Repors: no symptoms Respiratory: Reports: no symptoms Cardiovascular: Reports: no symptoms Gastrointestinal/Abdominal: Reports: no symptoms Allergies: Coded Allergies: SULFAMETHOXAZOLE (Verified Allergy, Unknown, 11/03/19) TRIMETHOPRIM (Verified Allergy, Unknown, 11/03/19) All Systems: reviewed and negative except above Objective Last 24 Hour Vital Signs Date Time Temp Pulse Resp B/P (MAP) Pulse Ox O2 Delivery O2 Flow Rate FiO2 11/25/19 12:00 98.3 90 18 136/84 (101) 96 11/25/19 09:00 Nasal Cannula 2.0 11/25/19 08:00 98.5 87 18 130/80 (97) 95 11/25/19 04:00 98.4 104 18 135/85 (102) 93 11/25/19 00:00 97.5 96 20 130/92 (105) 94 11/24/19 21:28 95 Nasal Cannula 2.0 28 11/24/19 20:14 Nasal Cannula 2.0 11/24/19 20:00 98.1 97 20 136/81 (99) 94 11/24/19 15:55 98.0 89 18 131/75 (93) 96 Intake and Output 11/24/19 11/25/19 19:00 07:00 Intake Total 1400 ml Balance 1400 ml Intake Oral 600 ml Other 800 ml # Voids 3 3 # Bowel Movements 2 General Appearance: no acute distress HEENT: mucous membranes moist Respiratory/Chest: chest wall non-tender, decreased breath sounds Cardiovascular: normal peripheral pulses Abdomen: normal bowel sounds Extremities: no cyanosis Neurologic/Psychiatric: alert, responsive Laboratory Tests 11/25/19 06:00: White Blood Count 15.1H, Red Blood Count 3.73L, Hemoglobin 11.2L, Hematocrit 32.7L, Mean Corpuscular Volume 88, Mean Corpuscular Hemoglobin 30.1, Mean Corpuscular Hemoglobin Concent 34.4, Red Cell Distribution Width 13.6, Platelet Count 215, Mean Platelet Volume 5.7L, Neutrophils (%) (Auto) 53.6, Lymphocytes ( %) (Auto) 31.8, Monocytes (%) (Auto) 7.6, Eosinophils (%) (Auto) 6.0H, Basophils (%) (Auto) 1.0, Sodium Level 145, Potassium Level 3.1L, Chloride Level 108H, Carbon Dioxide Level 25, Anion Gap 12, Blood Urea Nitrogen 13, Creatinine 0.8, Estimat Glomerular Filtration Rate > 60, Glucose Level 106, Calcium Level 9.0 Current Medications Medications (Trade) Dose Ordered Sig/Maryam Route PRN Reason Start Time Stop Time Status Last Admin Dose Admin Acetaminophen (Tylenol) 650 mg Q4H PRN ORAL MILD PAIN/TEMP >100.5 11/19/19 17:15 12/19/19 17:14 11/22/19 16:59 Ascorbic Acid (Vitamin C) 500 mg DAILY ORAL 11/17/19 09:00 12/08/19 08:59 11/25/19 09:13 Aspirin (Ecotrin) 81 mg DAILY ORAL 11/17/19 09:00 12/20/19 08:59 11/25/19 09:13 Dextrose (Dextrose 50%) 25 ml Q30M PRN IV Hypoglycemia 11/16/19 16:45 02/02/20 10:44 Dextrose (Dextrose 50%) 50 ml Q30M PRN IV Hypoglycemia 11/16/19 16:45 02/02/20 10:44 Diphenhydramine HCl (Benadryl) 50 mg Q6H PRN ORAL Itching 11/20/19 13:55 12/20/19 13:54 11/20/19 23:49 Docusate Sodium (Colace) 100 mg TIDPRN PRN ORAL Constipation 11/16/19 16:35 12/16/19 16:34 Haloperidol Lactate (Haldol) 5 mg Q6H PRN IM Agitation 11/20/19 15:45 01/04/20 15:44 Heparin Sodium (Porcine) (Heparin 5000 units/ml) 5,000 units EVERY 12 HOURS SUBQ 11/16/19 21:00 12/27/19 20:59 11/25/19 09:15 Lactulose (Cephulac) 10 gm THREE TIMES A DAY ORAL 11/16/19 18:00 12/13/19 12:59 11/25/19 12:25 Multivitamins (Multivitamins) 1 tab DAILY ORAL 11/17/19 09:00 12/08/19 08:59 11/25/19 09:13 Polyethylene Glycol (Miralax) 17 gm BEDTIME ORAL 11/16/19 21:00 12/13/19 20:59 11/22/19 20:09 Potassium Chloride (K-Dur) 40 meq TWICE A DAY ORAL 11/25/19 12:03 02/23/20 12:02 11/25/19 12:24 Assessment/Plan Assessment/Plan IMPRESSION: 1. UTI. 2. Hypoxemia. Improving; now on 2L/min 3. Hypertension. 4. Diabetes mellitus. 5. Previous CVA. 6. Cognitive impairment. 7. longterm resident. 8. Bactrim allergy. 9. COVID 19 positive DISCUSSION: Continue oxygen and pulmonary hygiene. 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 SaO2 95% on 2L/min [facility] med surg Follow up CXR is better Mara Arellano Omar Syed MD November 25, 2019 15:52
[2019-11-25 16:00] VITALS: BP 140/80
[2019-11-25 20:00] VITALS: BP 143/95
[2019-11-25] MEDS: Miralax 17gm pkt ORAL SCH (20:53)
--- NOTE | 2019-11-25 23:51 | Psych Consult Progress Note ---
Psychiatry Progress Note Psychiatry Progress Note Medications Current Medications Medications (Trade) Dose Ordered Sig/Maryam Route PRN Reason Start Time Stop Time Status Last Admin Dose Admin Acetaminophen (Tylenol) 650 mg Q4H PRN ORAL MILD PAIN/TEMP >100.5 11/19/19 17:15 12/19/19 17:14 11/22/19 16:59 Ascorbic Acid (Vitamin C) 500 mg DAILY ORAL 11/17/19 09:00 12/08/19 08:59 11/25/19 09:13 Aspirin (Ecotrin) 81 mg DAILY ORAL 11/17/19 09:00 12/20/19 08:59 11/25/19 09:13 Dextrose (Dextrose 50%) 25 ml Q30M PRN IV Hypoglycemia 11/16/19 16:45 02/02/20 10:44 Dextrose (Dextrose 50%) 50 ml Q30M PRN IV Hypoglycemia 11/16/19 16:45 02/02/20 10:44 Diphenhydramine HCl (Benadryl) 50 mg Q6H PRN ORAL Itching 11/20/19 13:55 12/20/19 13:54 11/20/19 23:49 Docusate Sodium (Colace) 100 mg TIDPRN PRN ORAL Constipation 11/16/19 16:35 12/16/19 16:34 Haloperidol Lactate (Haldol) 5 mg Q6H PRN IM Agitation 11/20/19 15:45 01/04/20 15:44 Heparin Sodium (Porcine) (Heparin 5000 units/ml) 5,000 units EVERY 12 HOURS SUBQ 11/16/19 21:00 12/27/19 20:59 11/25/19 20:54 Lactulose (Cephulac) 10 gm THREE TIMES A DAY ORAL 11/16/19 18:00 12/13/19 12:59 11/25/19 17:39 Multivitamins (Multivitamins) 1 tab DAILY ORAL 11/17/19 09:00 12/08/19 08:59 11/25/19 09:13 Polyethylene Glycol (Miralax) 17 gm BEDTIME ORAL 11/16/19 21:00 12/13/19 20:59 11/25/19 20:53 Potassium Chloride (K-Dur) 40 meq TWICE A DAY ORAL 11/25/19 12:03 02/23/20 12:02 11/25/19 17:39 Allergies: Coded Allergies: SULFAMETHOXAZOLE (Verified Allergy, Unknown, 11/03/19) TRIMETHOPRIM (Verified Allergy, Unknown, 11/03/19) Objective Data Height (Feet): 5 Height (Inches): 3.00 Weight (Pounds): 146 Assessment/Plan Status: unchanged Assessment/Plan: ASSESSMENT: Stable. PLAN: 1. We will continue p.r.n. medication. 2. Discussed with the nurse. Anu Hubbard MD November 25, 2019 23:51
[2019-11-26] VITALS: BP 148/83
[2019-11-26 04:00] VITALS: BP 135/93
--- NOTE | 2019-11-26 06:59 | General Progress Note ---
Assessment/Plan Problem List: (1) Electrolyte imbalance ICD Codes: E87.8 - Other disorders of electrolyte and fluid balance, not elsewhere classified SNOMED: 574751218 (2) Decubitus skin ulcer ICD Codes: L89.90 - Pressure ulcer of unspecified site, unspecified stage SNOMED: 535396650 (3) HTN (hypertension) ICD Codes: I10 - Essential (primary) hypertension SNOMED: 78392013 (4) CVA (cerebral vascular accident) ICD Codes: I63.9 - Cerebral infarction, unspecified SNOMED: 012773165 (5) Malnutrition ICD Codes: E46 - Unspecified protein-calorie malnutrition SNOMED: 63624323 (6) Diabetes ICD Codes: E11.9 - Type 2 diabetes mellitus without complications SNOMED: 40465668 (7) Anemia ICD Codes: D64.9 - Anemia, unspecified SNOMED: 403489518 (8) Pneumonia due to COVID-19 virus ICD Codes: U07.1 - COVID-19; J12.89 - Other viral pneumonia SNOMED: 096740953, 209141127 (9) UTI (urinary tract infection) ICD Codes: N39.0 - Urinary tract infection, site not specified SNOMED: 33038783 Status: unchanged Assessment/Plan: bowel regimen tyroid labs>>> reviewed monitor bowel movements will fu Subjective ROS Limited/Unobtainable: No Allergies: Coded Allergies: SULFAMETHOXAZOLE (Verified Allergy, Unknown, 11/03/19) TRIMETHOPRIM (Verified Allergy, Unknown, 11/03/19) Objective Last 24 Hour Vital Signs Date Time Temp Pulse Resp B/P (MAP) Pulse Ox O2 Delivery O2 Flow Rate FiO2 11/26/19 04:00 98.8 86 18 135/93 (107) 96 11/26/19 00:00 99.4 93 18 148/83 (104) 97 11/25/19 21:39 Nasal Cannula 2.0 11/25/19 20:24 96 Nasal Cannula 2.0 28 11/25/19 20:00 99.5 99 18 143/95 (111) 97 11/25/19 16:00 98.5 92 18 140/80 (100) 97 11/25/19 12:00 98.3 90 18 136/84 (101) 96 11/25/19 09:00 Nasal Cannula 2.0 11/25/19 08:00 98.5 87 18 130/80 (97) 95 Intake and Output 11/25/19 11/26/19 19:00 07:00 Intake Total 1700 ml Balance 1700 ml Intake Oral 850 ml Other 850 ml # Voids 3 2 # Bowel Movements 2 Height (Feet): 5 Height (Inches): 3.00 Weight (Pounds): 146 General Appearance: no apparent distress EENT: normal ENT inspection Neck: supple Cardiovascular: normal rate Respiratory/Chest: decreased breath sounds Abdomen: normal bowel sounds, non tender, soft Extremities: non-tender Luke Noe MD November 26, 2019 06:59
[2019-11-26 07:07] LABS: ALANINE AMINOTRANSFERASE 37 U/L (12-78); ALBUMIN 2.9 G/DL (3.4-5.0); ALBUMIN/GLOBULIN RATIO 0.5 (1.0-2.7); ALKALINE PHOSPHATASE 70 U/L (46-116); ANION GAP 9 mmol/L (5-15); ASPARTATE AMINO TRANSFERASE 31 U/L (15-37); BILIRUBIN,TOTAL 0.4 MG/DL (0.2-1.0); BLOOD UREA NITROGEN 11 mg/dL (7-18); CALCIUM 9.5 MG/DL (8.5-10.1); CARBON DIOXIDE 25 MMOL/L (21-32); CHLORIDE 111 MMOL/L (98-107); CREATININE 0.8 MG/DL (0.55-1.30); POTASSIUM 4.9 MMOL/L (3.5-5.1); SODIUM 145 MMOL/L (136-145)
[2019-11-26 07:43] LABS: EOSINOPHILS % (AUTO) 6.4 % (0.0-3.0); HEMATOCRIT 36.3 % (37.0-47.0); HEMOGLOBIN 12.2 G/DL (12.0-16.0); LYMPHOCYTES % (AUTO) 32.3 % (20.0-45.0); MEAN CORPUSCULAR VOLUME 90 FL (80-99); MONOCYTES % (AUTO) 6.8 % (1.0-10.0); NEUTROPHILS % (AUTO) 53.5 % (45.0-75.0); PLATELET COUNT 251 K/UL (150-450); RED BLOOD COUNT 4.04 M/UL (4.20-5.40); RED CELL DISTRIBUTION WIDTH 14.2 % (11.6-14.8); WHITE BLOOD COUNT 14.9 K/UL (4.8-10.8)
[2019-11-26 08:00] VITALS: BP 148/74
[2019-11-26] MEDS: Ascorbic Acid 500mg tab ORAL SCH (09:04)
[2019-11-26] MEDS: Aspirin EC 81mg tab ORAL SCH (09:04)
[2019-11-26] MEDS: Lactulose 10gm/15ml UDC ORAL SCH ×3 (09:04→17:23)
[2019-11-26] MEDS: Heparin 5000 units/ml inj SUBQ SCH ×2 (09:07→20:42)
--- NOTE | 2019-11-26 11:12 | Infectious Diseases Prog Note ---
Assessment/Plan Assessment/Plan Assessment: Sepsis Fever, recurrent; SP Acute hypoxic respiratory failure- s/p simple mask, sp NRB, now on 2l NC Pnuemonia- 2ry to COVID19 -11/22 CXR: Patchy opacities throughout the lungs, increased compared to prior exam. -11/19 CXR: Slightly improved but persistent and still extensive bilateral infiltrates, since prior exam of 3 days earlier -11/16 CXR: Diffuse bilateral airspace opacities are slightly improved. -11/13 CXR: Unchanged, over 2 days, findings as above. -11/08 CXR: Interval worsening bilateral airspace opacities, worse in the right lung. -11/05 CXR: Slight worsening of bilateral right greater than left interstitial and airspace opacities, over 3 days. Most likely pneumonia but pulmonary edema also a possibility -11/02 CXR: Borderline cardiomegaly. Bilateral interstitial disease. This is nonspecific, could indicate infiltrates, edema, among other possibilities SARS-COV2 PCR + -Influenza sc neg -Ferritin 180 (11/19), 243 (11/17),338 (11/13)<568 (11/08)<- 841 (11/06) -CRP 5 (11/19), 6.7 (11/17)< 12 (11/13)< 7.9(11/10)<-11.2 (11/08) <- 7.1 (11/06) -Tspot neg Mild leukocytosis, recurrent; increased, now improving -11/20 u/a wb 40-60, nit neg, leuk +3; ucx Neg -11/18 Bcx neg -11/13 Bcx Neg Drug rash 2ry to Zosyn UTI -11/20 UA 40-60WBC but cx ng at 48hrs -11/10 u/a wbc olivia, nit neg, leuk +3; ucx 10-20k VRE (S amp) -u/a wbc tnct, nit neg, leuk +3; ucx >100k E.coli (hernandes S), >100k P.mirabilis ( R. Ceftriaxone, bactrim) Elevated LFTs, SP Dm2 HTN CVA [facility] resident ([facility]) Plan: - Continue monitor off abx -Will not start Plaquenil as not recommended by IDSA and NIH guidelines -11/20 SP Zyvox #8, SOlumedrol 60mg IV x1 (drug allergy) -11/18 SP ZOsyn #6- ?allergic reaction -11/11 SP Cefepime #8 -11/07 SP Azithromycin #5 -11/03 SP Ceftriaxone #2 -f/u cx -Monitor CBC/CMP, temperaturse -Monitor inflammatory markers, CXR -f/u CDiff, sp cx -f/u CXR am -Bcx x2 -COVID isolation- repeat covid test per SNF request Thank you for consulting [facility]. Will continue to follow along wiht you. Discussed with RN Subjective Allergies: Coded Allergies: SULFAMETHOXAZOLE (Verified Allergy, Unknown, 11/03/19) TRIMETHOPRIM (Verified Allergy, Unknown, 11/03/19) Subjective afebrile >72hrs at 2l NC wbc improving Objective Vital Signs Last 24 Hour Vital Signs Date Time Temp Pulse Resp B/P (MAP) Pulse Ox O2 Delivery O2 Flow Rate FiO2 11/26/19 09:00 Nasal Cannula 2.0 11/26/19 08:00 97.7 89 18 148/74 (98) 96 11/26/19 04:00 98.8 86 18 135/93 (107) 96 11/26/19 00:00 99.4 93 18 148/83 (104) 97 11/25/19 21:39 Nasal Cannula 2.0 11/25/19 20:24 96 Nasal Cannula 2.0 28 11/25/19 20:00 99.5 99 18 143/95 (111) 97 11/25/19 16:00 98.5 92 18 140/80 (100) 97 11/25/19 12:00 98.3 90 18 136/84 (101) 96 Height (Feet): 5 Height (Inches): 3.00 Weight (Pounds): 146 Objective General Appearance: no acute distress HEENT: mucous membranes moist Respiratory/Chest: chest wall non-tender, decreased breath sounds Cardiovascular: normal peripheral pulses Abdomen: normal bowel sounds Extremities: no cyanosis Skin: erythematous maculopapular rash trunk, b/l arms, neck, face Laboratory Tests Test 11/26/19 04:00 11/26/19 05:30 Sodium Level 145 MMOL/L (136-145) Potassium Level 4.9 MMOL/L (3.5-5.1) # Chloride Level 111 MMOL/L (98-107) H Carbon Dioxide Level 25 MMOL/L (21-32) Anion Gap 9 mmol/L (5-15) Blood Urea Nitrogen 11 mg/dL (7-18) Creatinine 0.8 MG/DL (0.55-1.30) Estimat Glomerular Filtration Rate > 60 mL/min (>60) Glucose Level 74 MG/DL (74-106) Calcium Level 9.5 MG/DL (8.5-10.1) Total Bilirubin 0.4 MG/DL (0.2-1.0) Aspartate Amino Transf (AST/SGOT) 31 U/L (15-37) Alanine Aminotransferase (ALT/SGPT) 37 U/L (12-78) Alkaline Phosphatase 70 U/L (46-116) C-Reactive Protein, Quantitative 9.3 mg/dL (0.00-0.90) H Total Protein 8.5 G/DL (6.4-8.2) H Albumin 2.9 G/DL (3.4-5.0) L Globulin 5.6 g/dL Albumin/Globulin Ratio 0.5 (1.0-2.7) L Lipase 249 U/L (73-393) White Blood Count 14.9 K/UL (4.8-10.8) H Red Blood Count 4.04 M/UL (4.20-5.40) L Hemoglobin 12.2 G/DL (12.0-16.0) Hematocrit 36.3 % (37.0-47.0) L Mean Corpuscular Volume 90 FL (80-99) Mean Corpuscular Hemoglobin 30.3 PG (27.0-31.0) Mean Corpuscular Hemoglobin Concent 33.7 G/DL (32.0-36.0) Red Cell Distribution Width 14.2 % (11.6-14.8) Platelet Count 251 K/UL (150-450) Mean Platelet Volume 5.4 FL (6.5-10.1) L Neutrophils (%) (Auto) 53.5 % (45.0-75.0) Lymphocytes (%) (Auto) 32.3 % (20.0-45.0) Monocytes (%) (Auto) 6.8 % (1.0-10.0) Eosinophils (%) (Auto) 6.4 % (0.0-3.0) H Basophils (%) (Auto) 1.0 % (0.0-2.0) Current Medications Medications (Trade) Dose Ordered Sig/Maryam Route PRN Reason Start Time Stop Time Status Last Admin Dose Admin Acetaminophen (Tylenol) 650 mg Q4H PRN ORAL MILD PAIN/TEMP >100.5 11/19/19 17:15 12/19/19 17:14 11/22/19 16:59 Ascorbic Acid (Vitamin C) 500 mg DAILY ORAL 11/17/19 09:00 12/08/19 08:59 11/26/19 09:04 Aspirin (Ecotrin) 81 mg DAILY ORAL 11/17/19 09:00 12/20/19 08:59 11/26/19 09:04 Dextrose (Dextrose 50%) 25 ml Q30M PRN IV Hypoglycemia 11/16/19 16:45 02/02/20 10:44 Dextrose (Dextrose 50%) 50 ml Q30M PRN IV Hypoglycemia 11/16/19 16:45 02/02/20 10:44 Diphenhydramine HCl (Benadryl) 50 mg Q6H PRN ORAL Itching 11/20/19 13:55 12/20/19 13:54 11/20/19 23:49 Docusate Sodium (Colace) 100 mg TIDPRN PRN ORAL Constipation 11/16/19 16:35 12/16/19 16:34 Haloperidol Lactate (Haldol) 5 mg Q6H PRN IM Agitation 11/20/19 15:45 01/04/20 15:44 Heparin Sodium (Porcine) (Heparin 5000 units/ml) 5,000 units EVERY 12 HOURS SUBQ 11/16/19 21:00 12/27/19 20:59 11/26/19 09:07 Lactulose (Cephulac) 10 gm THREE TIMES A DAY ORAL 11/16/19 18:00 12/13/19 12:59 11/26/19 09:04 Multivitamins (Multivitamins) 1 tab DAILY ORAL 11/17/19 09:00 12/08/19 08:59 11/26/19 09:04 Polyethylene Glycol (Miralax) 17 gm BEDTIME ORAL 11/16/19 21:00 12/13/19 20:59 11/25/19 20:53 Potassium Chloride (K-Dur) 40 meq TWICE A DAY ORAL 11/25/19 12:03 02/23/20 12:02 11/26/19 09:04 Jenna Briseno M.D. November 26, 2019 11:12
--- NOTE | 2019-11-26 11:30 | Nephrology Progress Note ---
Assessment/Plan Problem List: (1) Renal failure (2) Electrolyte imbalance (3) Pneumonia due to COVID-19 virus (4) UTI (urinary tract infection) (5) Diabetes Assessment Renal parameters suggest dehydration and free water deficit, and also effect of Lasix use in the past Hypernatremia, Azotemia, high uric acid COVID positive pneumonia UTI Diabetes mellitus Hypertension History of CVA Allergy to Bactrim [facility] resident Plan Potassium supplement as needed Previously D5W as needed for hypernatremia Continue per current treatment plan Abnormal electrolytes improving Monitor electrolytes and renal parameters Continue per consultants Per orders Positive for COVID-19 test Subjective ROS Limited/Unobtainable: No Constitutional: Reports: malaise Objective Objective Last 24 Hour Vital Signs Date Time Temp Pulse Resp B/P (MAP) Pulse Ox O2 Delivery O2 Flow Rate FiO2 11/26/19 09:00 Nasal Cannula 2.0 11/26/19 08:00 97.7 89 18 148/74 (98) 96 11/26/19 04:00 98.8 86 18 135/93 (107) 96 11/26/19 00:00 99.4 93 18 148/83 (104) 97 11/25/19 21:39 Nasal Cannula 2.0 11/25/19 20:24 96 Nasal Cannula 2.0 28 11/25/19 20:00 99.5 99 18 143/95 (111) 97 11/25/19 16:00 98.5 92 18 140/80 (100) 97 11/25/19 12:00 98.3 90 18 136/84 (101) 96 Intake and Output 11/25/19 11/26/19 19:00 07:00 Intake Total 1700 ml Balance 1700 ml Intake Oral 850 ml Other 850 ml # Voids 3 2 # Bowel Movements 2 Laboratory Tests 11/26/19 04:00: Sodium Level 145, Potassium Level 4.9#, Chloride Level 111H, Carbon Dioxide Level 25, Anion Gap 9, Blood Urea Nitrogen 11, Creatinine 0.8, Estimat Glomerular Filtration Rate > 60, Glucose Level 74, Calcium Level 9.5, Total Bilirubin 0.4, Aspartate Amino Transf (AST/SGOT) 31, Alanine Aminotransferase ( ALT/SGPT) 37, Alkaline Phosphatase 70, C-Reactive Protein, Quantitative 9.3H, Total Protein 8.5H, Albumin 2.9L, Globulin 5.6, Albumin/Globulin Ratio 0.5L, Lipase 249 11/26/19 05:30: White Blood Count 14.9H, Red Blood Count 4.04L, Hemoglobin 12.2, Hematocrit 36.3L, Mean Corpuscular Volume 90, Mean Corpuscular Hemoglobin 30.3, Mean Corpuscular Hemoglobin Concent 33.7, Red Cell Distribution Width 14.2, Platelet Count 251, Mean Platelet Volume 5.4L, Neutrophils (%) (Auto) 53.5, Lymphocytes ( %) (Auto) 32.3, Monocytes (%) (Auto) 6.8, Eosinophils (%) (Auto) 6.4H, Basophils (%) (Auto) 1.0 Height (Feet): 5 Height (Inches): 3.00 Weight (Pounds): 146 General Appearance: no apparent distress, lethargic Cardiovascular: tachycardia Respiratory/Chest: decreased breath sounds Abdomen: distended Objective No change Wisam Love MD November 26, 2019 11:30
[2019-11-26 12:00] VITALS: BP 136/81
--- NOTE | 2019-11-26 12:00 | Surgery Progress Note ---
Surgery Progress Note Subjective Additional Comments no acute events labs noted exam stable afebrile persistent leukocytosis crp noted Objective Last 24 Hour Vital Signs Date Time Temp Pulse Resp B/P (MAP) Pulse Ox O2 Delivery O2 Flow Rate FiO2 11/26/19 09:00 Nasal Cannula 2.0 11/26/19 08:00 97.7 89 18 148/74 (98) 96 11/26/19 04:00 98.8 86 18 135/93 (107) 96 11/26/19 00:00 99.4 93 18 148/83 (104) 97 11/25/19 21:39 Nasal Cannula 2.0 11/25/19 20:24 96 Nasal Cannula 2.0 28 11/25/19 20:00 99.5 99 18 143/95 (111) 97 11/25/19 16:00 98.5 92 18 140/80 (100) 97 11/25/19 12:00 98.3 90 18 136/84 (101) 96 I&O Intake and Output 11/25/19 11/26/19 19:00 07:00 Intake Total 1700 ml Balance 1700 ml Intake Oral 850 ml Other 850 ml # Voids 3 2 # Bowel Movements 2 Dressing: other Wound: other Drains: other Cardiovascular: RSR Respiratory: decreased breath sounds Abdomen: soft, non-tender, present bowel sounds Extremities: no cyanosis, other Laboratory Tests Test 11/26/19 04:00 11/26/19 05:30 Sodium Level 145 MMOL/L (136-145) Potassium Level 4.9 MMOL/L (3.5-5.1) # Chloride Level 111 MMOL/L (98-107) H Carbon Dioxide Level 25 MMOL/L (21-32) Anion Gap 9 mmol/L (5-15) Blood Urea Nitrogen 11 mg/dL (7-18) Creatinine 0.8 MG/DL (0.55-1.30) Estimat Glomerular Filtration Rate > 60 mL/min (>60) Glucose Level 74 MG/DL (74-106) Calcium Level 9.5 MG/DL (8.5-10.1) Total Bilirubin 0.4 MG/DL (0.2-1.0) Aspartate Amino Transf (AST/SGOT) 31 U/L (15-37) Alanine Aminotransferase (ALT/SGPT) 37 U/L (12-78) Alkaline Phosphatase 70 U/L (46-116) C-Reactive Protein, Quantitative 9.3 mg/dL (0.00-0.90) H Total Protein 8.5 G/DL (6.4-8.2) H Albumin 2.9 G/DL (3.4-5.0) L Globulin 5.6 g/dL Albumin/Globulin Ratio 0.5 (1.0-2.7) L Lipase 249 U/L (73-393) White Blood Count 14.9 K/UL (4.8-10.8) H Red Blood Count 4.04 M/UL (4.20-5.40) L Hemoglobin 12.2 G/DL (12.0-16.0) Hematocrit 36.3 % (37.0-47.0) L Mean Corpuscular Volume 90 FL (80-99) Mean Corpuscular Hemoglobin 30.3 PG (27.0-31.0) Mean Corpuscular Hemoglobin Concent 33.7 G/DL (32.0-36.0) Red Cell Distribution Width 14.2 % (11.6-14.8) Platelet Count 251 K/UL (150-450) Mean Platelet Volume 5.4 FL (6.5-10.1) L Neutrophils (%) (Auto) 53.5 % (45.0-75.0) Lymphocytes (%) (Auto) 32.3 % (20.0-45.0) Monocytes (%) (Auto) 6.8 % (1.0-10.0) Eosinophils (%) (Auto) 6.4 % (0.0-3.0) H Basophils (%) (Auto) 1.0 % (0.0-2.0) Plan Problems: (1) Hypoxia Assessment & Plan: supplemental O2 monitor closely Patchy opacities throughout the lungs, increased compared to prior exam. (2) UTI (urinary tract infection) (3) Suspected 2019 novel coronavirus infection (4) Pneumonia due to COVID-19 virus Assessment & Plan: The heart is borderline enlarged. There are bilateral interstitial opacities diffusely. No definite focal airspace consolidation. The pleural spaces are clear. Impression: Borderline cardiomegaly. Bilateral interstitial disease. This is nonspecific, could indicate infiltrates, edema, among other possibilities on Non rebreather can desaturate Slightly improved but persistent and still extensive bilateral infiltrates (5) Fever (6) Anemia (7) Confusion (8) Diabetes (9) Renal failure (10) Malnutrition Assessment & Plan: DAILY ESTIMATED NEEDS: Needs based on Wound, DM/ 53kg abw 25-30 kcals/kg 6790-7815 total kcals 1.25-1.5 g protein/kg 66-79 g total protein 25-30 mL/kg 1687-1027 total fluid mLs NUTRITION DIAGNOSIS: * Increased kcal/prot intake needs R/T wound healing as evidenced by admitted w/ DTPI wound @ L ischium, non-blanching erythema at cleft of buttocks. * Altered nutrition related lab values R/T diabetes as evidenced by elev POC glu (174, 102, 151, 123, now improved), on NISS. (INACTIVE) CURRENT DIET:CCHO med liquify puree NTL -> pureed w/ thin + Glucerna BID PO DIET RECOMMENDATIONS: CCHO med/ texture per TRANSFORMATION COACH ADDITIONAL RECOMMENDATIONS: * Per SNF: HT=61" SL=577sgm * Wound healing: add MVI x 1, Vit C 500mg QD, SYED BID * Monitor BGs, need to resume NISS- now w improved BGs * Texture downgrade for chewing deficit as per RN now on liquify puree/ NTL -> PUREED W/ THIN (11/21) * Monitor for continued improved intake (now eating 100% per EMR) (11) HTN (hypertension) (12) CVA (cerebral vascular accident) (13) Decubitus skin ulcer Assessment & Plan: Pt presented on admission with DTPI L ischium. Base of wound is purple, indurated. An area of hyperpigmentation noted distally but in close to wound bed. Non-blanching erythema cleft of buttocks. Hyperpigmentation from previous wound noted to R ischium. Within area of hyperpigmentation an area of non-blanchable erythema noted. No other skin concerns noted. fortunately DTI improving with close care and monitoring nutritional improvement necessary still as abl now 2.3 cont diet push intake will monitor Tx.Plan: Apply Moisture Barrier Paste to Sacrum. Cover with Optifoam drsg. Change every 3 days and prn. Apply Moisture Barrier Paste to R and L Ischium. Cover each area with Optifoam drsg. Change every 3 days and prn. Apply Cavilon Skin Barrier to both heels. Cover each heel with Optifoam drsg. Change every 7 days and prn. Reposition at least every 2hours or as tolerated. Off-load heels with Pillow. DAILY ESTIMATED NEEDS: Needs based on Wound, DM/ 53kg abw 25-30 kcals/kg 9216-2117 total kcals 1.25-1.5 g protein/kg 66-79 g total protein 25-30 mL/kg 6058-9485 total fluid mLs NUTRITION DIAGNOSIS: * Increased kcal/prot intake needs R/T wound healing as evidenced by admitted w/ DTPI wound @ L ischium, non-blanching erythema at cleft of buttocks. * Altered nutrition related lab values R/T diabetes as evidenced by elev POC glu (174, 102, 151, 123), on NISS. CURRENT DIET:REGULAR PO DIET RECOMMENDATIONS: CCHO med/ texture as tolerated or per TRANSFORMATION COACH ADDITIONAL RECOMMENDATIONS: * Per SNF: HT=61" KF=069voc * Wound healing: add MVI x 1, Vit C 500mg QD add Syed BID * Texture downgrade for chewing deficit as per RN -> consider pureed * Glucerna x 1 with variable intake (220kcal/10g prot each) Humble Sewell November 26, 2019 12:00
--- NOTE | 2019-11-26 12:14 | Pulmonology Progress Note ---
Subjective ROS Limited/Unobtainable: No Interval Events: Now on 2L/min O2; none new Constitutional: Reports: no symptoms HEENT: Repors: no symptoms Respiratory: Reports: no symptoms Cardiovascular: Reports: no symptoms Gastrointestinal/Abdominal: Reports: no symptoms Allergies: Coded Allergies: SULFAMETHOXAZOLE (Verified Allergy, Unknown, 11/03/19) TRIMETHOPRIM (Verified Allergy, Unknown, 11/03/19) All Systems: reviewed and negative except above Objective Last 24 Hour Vital Signs Date Time Temp Pulse Resp B/P (MAP) Pulse Ox O2 Delivery O2 Flow Rate FiO2 11/26/19 12:00 98.5 79 17 136/81 (99) 97 11/26/19 09:00 Nasal Cannula 2.0 11/26/19 08:00 97.7 89 18 148/74 (98) 96 11/26/19 04:00 98.8 86 18 135/93 (107) 96 11/26/19 00:00 99.4 93 18 148/83 (104) 97 11/25/19 21:39 Nasal Cannula 2.0 11/25/19 20:24 96 Nasal Cannula 2.0 28 11/25/19 20:00 99.5 99 18 143/95 (111) 97 11/25/19 16:00 98.5 92 18 140/80 (100) 97 Intake and Output 11/25/19 11/26/19 19:00 07:00 Intake Total 1700 ml Balance 1700 ml Intake Oral 850 ml Other 850 ml # Voids 3 2 # Bowel Movements 2 General Appearance: no acute distress HEENT: mucous membranes moist Respiratory/Chest: chest wall non-tender, decreased breath sounds Cardiovascular: normal peripheral pulses Abdomen: normal bowel sounds Extremities: no cyanosis Neurologic/Psychiatric: alert, responsive Laboratory Tests 11/26/19 04:00: Sodium Level 145, Potassium Level 4.9#, Chloride Level 111H, Carbon Dioxide Level 25, Anion Gap 9, Blood Urea Nitrogen 11, Creatinine 0.8, Estimat Glomerular Filtration Rate > 60, Glucose Level 74, Calcium Level 9.5, Total Bilirubin 0.4, Aspartate Amino Transf (AST/SGOT) 31, Alanine Aminotransferase ( ALT/SGPT) 37, Alkaline Phosphatase 70, C-Reactive Protein, Quantitative 9.3H, Total Protein 8.5H, Albumin 2.9L, Globulin 5.6, Albumin/Globulin Ratio 0.5L, Lipase 249 5/12/20 05:30: White Blood Count 14.9H, Red Blood Count 4.04L, Hemoglobin 12.2, Hematocrit 36.3L, Mean Corpuscular Volume 90, Mean Corpuscular Hemoglobin 30.3, Mean Corpuscular Hemoglobin Concent 33.7, Red Cell Distribution Width 14.2, Platelet Count 251, Mean Platelet Volume 5.4L, Neutrophils (%) (Auto) 53.5, Lymphocytes ( %) (Auto) 32.3, Monocytes (%) (Auto) 6.8, Eosinophils (%) (Auto) 6.4H, Basophils (%) (Auto) 1.0 Current Medications Medications (Trade) Dose Ordered Sig/Maryam Route PRN Reason Start Time Stop Time Status Last Admin Dose Admin Acetaminophen (Tylenol) 650 mg Q4H PRN ORAL MILD PAIN/TEMP >100.5 11/19/19 17:15 12/19/19 17:14 11/22/19 16:59 Ascorbic Acid (Vitamin C) 500 mg DAILY ORAL 11/17/19 09:00 12/08/19 08:59 11/26/19 09:04 Aspirin (Ecotrin) 81 mg DAILY ORAL 11/17/19 09:00 12/20/19 08:59 11/26/19 09:04 Dextrose (Dextrose 50%) 25 ml Q30M PRN IV Hypoglycemia 11/16/19 16:45 02/02/20 10:44 Dextrose (Dextrose 50%) 50 ml Q30M PRN IV Hypoglycemia 11/16/19 16:45 02/02/20 10:44 Diphenhydramine HCl (Benadryl) 50 mg Q6H PRN ORAL Itching 11/20/19 13:55 12/20/19 13:54 11/20/19 23:49 Docusate Sodium (Colace) 100 mg TIDPRN PRN ORAL Constipation 11/16/19 16:35 12/16/19 16:34 Haloperidol Lactate (Haldol) 5 mg Q6H PRN IM Agitation 11/20/19 15:45 01/04/20 15:44 Heparin Sodium (Porcine) (Heparin 5000 units/ml) 5,000 units EVERY 12 HOURS SUBQ 11/16/19 21:00 12/27/19 20:59 5/12/20 09:07 Lactulose (Cephulac) 10 gm THREE TIMES A DAY ORAL 11/16/19 18:00 12/13/19 12:59 11/26/19 09:04 Multivitamins (Multivitamins) 1 tab DAILY ORAL 11/17/19 09:00 12/08/19 08:59 11/26/19 09:04 Polyethylene Glycol (Miralax) 17 gm BEDTIME ORAL 11/16/19 21:00 12/13/19 20:59 11/25/19 20:53 Potassium Chloride (K-Dur) 40 meq TWICE A DAY ORAL 11/25/19 12:03 02/23/20 12:02 11/26/19 09:04 Assessment/Plan Assessment/Plan IMPRESSION: 1. UTI. 2. Hypoxemia. Improving; now on 2L/min 3. Hypertension. 4. Diabetes mellitus. 5. Previous CVA. 6. Cognitive impairment. 7. [facility] resident. 8. Bactrim allergy. 9. COVID 19 positive DISCUSSION: Continue oxygen and pulmonary hygiene. 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 SaO2 95% on 2L/min Contine med surg Follow up CXR is better Mara Arellano Omar Syed MD November 26, 2019 12:14
--- NOTE | 2019-11-26 12:50 | Diagnostic Imaging Report ---
Indication: Cough Technique: One view of the chest Comparison: 11/23/2019 Findings: Unchanged bilateral right greater than left diffuse infiltrates. The heart is borderline enlarged. The pleural spaces are clear. Impression: Unchanged, over 3 days, findings as above.
--- NOTE | 2019-11-26 13:16 | General Progress Note ---
Assessment/Plan Problem List: (1) Malnutrition ICD Codes: E46 - Unspecified protein-calorie malnutrition SNOMED: 96577894 (2) Anemia ICD Codes: D64.9 - Anemia, unspecified SNOMED: 942662835 (3) Fever ICD Codes: R50.9 - Fever, unspecified SNOMED: 621011628 (4) CVA (cerebral vascular accident) ICD Codes: I63.9 - Cerebral infarction, unspecified SNOMED: 070151186 (5) HTN (hypertension) ICD Codes: I10 - Essential (primary) hypertension SNOMED: 89452156 (6) Diabetes ICD Codes: E11.9 - Type 2 diabetes mellitus without complications SNOMED: 22309106 (7) Renal failure ICD Codes: N19 - Unspecified kidney failure SNOMED: 91495094 (8) Confusion ICD Codes: R41.0 - Disorientation, unspecified SNOMED: 233046695 (9) Hypoxia ICD Codes: R09.02 - Hypoxemia SNOMED: 279956936 (10) Suspected 2019 novel coronavirus infection ICD Codes: R68.89 - Other general symptoms and signs SNOMED: 720503011 (11) UTI (urinary tract infection) ICD Codes: N39.0 - Urinary tract infection, site not specified SNOMED: 24433616 Status: unchanged Assessment/Plan: o2 pulm tx abx bp bs control cbc bmp am Subjective Allergies: Coded Allergies: SULFAMETHOXAZOLE (Verified Allergy, Unknown, 11/03/19) TRIMETHOPRIM (Verified Allergy, Unknown, 11/03/19) All Systems: reviewed and negative except above Subjective o2 nc calm in bed Objective Last 24 Hour Vital Signs Date Time Temp Pulse Resp B/P (MAP) Pulse Ox O2 Delivery O2 Flow Rate FiO2 11/26/19 12:00 98.5 79 17 136/81 (99) 97 11/26/19 09:00 Nasal Cannula 2.0 11/26/19 08:00 97.7 89 18 148/74 (98) 96 11/26/19 04:00 98.8 86 18 135/93 (107) 96 11/26/19 00:00 99.4 93 18 148/83 (104) 97 11/25/19 21:39 Nasal Cannula 2.0 11/25/19 20:24 96 Nasal Cannula 2.0 28 11/25/19 20:00 99.5 99 18 143/95 (111) 97 11/25/19 16:00 98.5 92 18 140/80 (100) 97 Intake and Output 11/25/19 11/26/19 19:00 07:00 Intake Total 1700 ml Balance 1700 ml Intake Oral 850 ml Other 850 ml # Voids 3 2 # Bowel Movements 2 Laboratory Tests 11/26/19 04:00: Sodium Level 145, Potassium Level 4.9#, Chloride Level 111H, Carbon Dioxide Level 25, Anion Gap 9, Blood Urea Nitrogen 11, Creatinine 0.8, Estimat Glomerular Filtration Rate > 60, Glucose Level 74, Calcium Level 9.5, Total Bilirubin 0.4, Aspartate Amino Transf (AST/SGOT) 31, Alanine Aminotransferase ( ALT/SGPT) 37, Alkaline Phosphatase 70, C-Reactive Protein, Quantitative 9.3H, Total Protein 8.5H, Albumin 2.9L, Globulin 5.6, Albumin/Globulin Ratio 0.5L, Lipase 249 11/26/19 05:30: White Blood Count 14.9H, Red Blood Count 4.04L, Hemoglobin 12.2, Hematocrit 36.3L, Mean Corpuscular Volume 90, Mean Corpuscular Hemoglobin 30.3, Mean Corpuscular Hemoglobin Concent 33.7, Red Cell Distribution Width 14.2, Platelet Count 251, Mean Platelet Volume 5.4L, Neutrophils (%) (Auto) 53.5, Lymphocytes ( %) (Auto) 32.3, Monocytes (%) (Auto) 6.8, Eosinophils (%) (Auto) 6.4H, Basophils (%) (Auto) 1.0 Height (Feet): 5 Height (Inches): 3.00 Weight (Pounds): 146 General Appearance: lethargic EENT: normal ENT inspection Neck: normal alignment Cardiovascular: regular rhythm, regularly irregular Respiratory/Chest: no respiratory distress, no accessory muscle use Extremities: normal inspection Skin: normal pigmentation Trevor Cabrera DO November 26, 2019 13:16
[2019-11-26 16:00] VITALS: BP_SYST 131; BP_SYST 160; BP_DIAS 59; BP_DIAS 72
[2019-11-26 20:00] VITALS: BP 132/91
[2019-11-26] MEDS: Miralax 17gm pkt ORAL SCH (20:43)
--- NOTE | 2019-11-26 22:44 | Psych Consult Progress Note ---
Psychiatry Progress Note Psychiatry Progress Note Medications Current Medications Medications (Trade) Dose Ordered Sig/Maryam Route PRN Reason Start Time Stop Time Status Last Admin Dose Admin Acetaminophen (Tylenol) 650 mg Q4H PRN ORAL MILD PAIN/TEMP >100.5 11/19/19 17:15 12/19/19 17:14 11/22/19 16:59 Ascorbic Acid (Vitamin C) 500 mg DAILY ORAL 11/17/19 09:00 12/08/19 08:59 11/26/19 09:04 Aspirin (Ecotrin) 81 mg DAILY ORAL 11/17/19 09:00 12/20/19 08:59 11/26/19 09:04 Dextrose (Dextrose 50%) 25 ml Q30M PRN IV Hypoglycemia 11/16/19 16:45 02/02/20 10:44 Dextrose (Dextrose 50%) 50 ml Q30M PRN IV Hypoglycemia 11/16/19 16:45 02/02/20 10:44 Diphenhydramine HCl (Benadryl) 50 mg Q6H PRN ORAL Itching 11/20/19 13:55 12/20/19 13:54 11/20/19 23:49 Docusate Sodium (Colace) 100 mg TIDPRN PRN ORAL Constipation 11/16/19 16:35 12/16/19 16:34 Haloperidol Lactate (Haldol) 5 mg Q6H PRN IM Agitation 11/20/19 15:45 01/04/20 15:44 Heparin Sodium (Porcine) (Heparin 5000 units/ml) 5,000 units EVERY 12 HOURS SUBQ 11/16/19 21:00 12/27/19 20:59 11/26/19 20:42 Lactulose (Cephulac) 10 gm THREE TIMES A DAY ORAL 11/16/19 18:00 12/13/19 12:59 11/26/19 17:23 Multivitamins (Multivitamins) 1 tab DAILY ORAL 11/17/19 09:00 12/08/19 08:59 11/26/19 09:04 Polyethylene Glycol (Miralax) 17 gm BEDTIME ORAL 11/16/19 21:00 12/13/19 20:59 11/26/19 20:43 Potassium Chloride (K-Dur) 40 meq TWICE A DAY ORAL 11/25/19 12:03 02/23/20 12:02 11/26/19 17:23 Neurological/Psychiatric: Reports: anxiety, depressed, emotional problems Allergies: Coded Allergies: SULFAMETHOXAZOLE (Verified Allergy, Unknown, 11/03/19) TRIMETHOPRIM (Verified Allergy, Unknown, 11/03/19) Objective Data Height (Feet): 5 Height (Inches): 3.00 Weight (Pounds): 146 General Appearance: WD/WN, no apparent distress, alert, confused Additional Comments: alert and disoriented to situation and date. Mood is anxious. Affect is flat. Thought process is concrete. Thought content, no suicidal or homicidal ideation. Cognition is impaired. Insight and judgment are impaired. Assessment/Plan [place] I: Status: stable, progressing, unchanged Assessment/Plan: ASSESSMENT: Stable. PLAN: 1. We will continue p.r.n. medication. 2. Discussed with the nurse. Anu Hubbard MD November 26, 2019 22:44
[2019-11-27] VITALS: BP 125/90
[2019-11-27 04:00] VITALS: BP 124/70
[2019-11-27 07:18] LABS: BASOPHILS % (AUTO) 1.4 % (0.0-2.0); EOSINOPHILS % (AUTO) 7.6 % (0.0-3.0); HEMATOCRIT 39.8 % (37.0-47.0); HEMOGLOBIN 13.2 G/DL (12.0-16.0); LYMPHOCYTES % (AUTO) 34.1 % (20.0-45.0); MEAN CORPUSCULAR VOLUME 90 FL (80-99); MONOCYTES % (AUTO) 6.2 % (1.0-10.0); NEUTROPHILS % (AUTO) 50.7 % (45.0-75.0); PLATELET COUNT 308 K/UL (150-450); RED BLOOD COUNT 4.43 M/UL (4.20-5.40); WHITE BLOOD COUNT 15.4 K/UL (4.8-10.8)
[2019-11-27 07:24] LABS: ANION GAP 10 mmol/L (5-15); BLOOD UREA NITROGEN 19 mg/dL (7-18); CALCIUM 9.7 MG/DL (8.5-10.1); CARBON DIOXIDE 26 MMOL/L (21-32); CHLORIDE 107 MMOL/L (98-107); POTASSIUM 5.1 MMOL/L (3.5-5.1); SODIUM 143 MMOL/L (136-145)
[2019-11-27 08:00] VITALS: BP 140/96
[2019-11-27] MEDS: Aspirin EC 81mg tab ORAL SCH (08:33)
[2019-11-27] MEDS: Lactulose 10gm/15ml UDC ORAL SCH ×3 (08:33→17:08)
[2019-11-27] MEDS: Ascorbic Acid 500mg tab ORAL SCH (08:33)
[2019-11-27] MEDS: Heparin 5000 units/ml inj SUBQ SCH ×2 (08:35→20:38)
--- NOTE | 2019-11-27 09:05 | General Progress Note ---
Assessment/Plan Problem List: (1) Malnutrition ICD Codes: E46 - Unspecified protein-calorie malnutrition SNOMED: 19437006 (2) Anemia ICD Codes: D64.9 - Anemia, unspecified SNOMED: 523737640 (3) Fever ICD Codes: R50.9 - Fever, unspecified SNOMED: 365627030 (4) CVA (cerebral vascular accident) ICD Codes: I63.9 - Cerebral infarction, unspecified SNOMED: 856930132 (5) HTN (hypertension) ICD Codes: I10 - Essential (primary) hypertension SNOMED: 28108572 (6) Diabetes ICD Codes: E11.9 - Type 2 diabetes mellitus without complications SNOMED: 81858604 (7) Renal failure ICD Codes: N19 - Unspecified kidney failure SNOMED: 45125280 (8) Confusion ICD Codes: R41.0 - Disorientation, unspecified SNOMED: 728891860 (9) Hypoxia ICD Codes: R09.02 - Hypoxemia SNOMED: 944420082 (10) Suspected 2019 novel coronavirus infection ICD Codes: R68.89 - Other general symptoms and signs SNOMED: 919799096 (11) UTI (urinary tract infection) ICD Codes: N39.0 - Urinary tract infection, site not specified SNOMED: 11449842 Status: unchanged Assessment/Plan: o2 pulm tx abx bp bs control cbc bmp am Subjective Constitutional: Reports: weakness Allergies: Coded Allergies: SULFAMETHOXAZOLE (Verified Allergy, Unknown, 11/03/19) TRIMETHOPRIM (Verified Allergy, Unknown, 11/03/19) All Systems: reviewed and negative except above Subjective o2 nc calm in bed Objective Last 24 Hour Vital Signs Date Time Temp Pulse Resp B/P (MAP) Pulse Ox O2 Delivery O2 Flow Rate FiO2 11/27/19 08:00 98.2 94 20 140/96 (111) 97 11/27/19 04:00 97.8 84 18 124/70 (88) 95 11/27/19 00:00 97.8 90 18 125/90 (102) 97 11/26/19 21:37 Nasal Cannula 2.0 11/26/19 20:00 98.2 96 18 132/91 (105) 97 11/26/19 16:00 97.8 71 18 131/72 (91) 97 11/26/19 12:00 98.5 79 17 136/81 (99) 97 Intake and Output 11/26/19 11/27/19 19:00 07:00 Intake Total 400 ml Balance 400 ml Other 400 ml # Voids 2 Laboratory Tests 11/27/19 04:00: White Blood Count 15.4H, Red Blood Count 4.43, Hemoglobin 13.2, Hematocrit 39.8 , Mean Corpuscular Volume 90, Mean Corpuscular Hemoglobin 29.8, Mean Corpuscular Hemoglobin Concent 33.2, Red Cell Distribution Width 15.0H, Platelet Count 308, Mean Platelet Volume 5.3L, Neutrophils (%) (Auto) 50.7, Lymphocytes (%) (Auto) 34.1, Monocytes (%) (Auto) 6.2, Eosinophils (%) (Auto) 7.6H, Basophils (%) (Auto) 1.4, Sodium Level 143, Potassium Level 5.1, Chloride Level 107, Carbon Dioxide Level 26, Anion Gap 10, Blood Urea Nitrogen 19H, Creatinine 1.0, Estimat Glomerular Filtration Rate 56.0, Glucose Level 68L, Calcium Level 9.7 Height (Feet): 5 Height (Inches): 3.00 Weight (Pounds): 166 General Appearance: lethargic EENT: normal ENT inspection Neck: normal alignment Cardiovascular: normal rate, regular rhythm Respiratory/Chest: no respiratory distress, no accessory muscle use Extremities: normal inspection Skin: normal pigmentation Trevor Cabrera DO November 27, 2019 09:05
--- NOTE | 2019-11-27 09:13 | General Progress Note ---
Assessment/Plan Problem List: (1) Electrolyte imbalance ICD Codes: E87.8 - Other disorders of electrolyte and fluid balance, not elsewhere classified SNOMED: 053192219 (2) Decubitus skin ulcer ICD Codes: L89.90 - Pressure ulcer of unspecified site, unspecified stage SNOMED: 567951865 (3) HTN (hypertension) ICD Codes: I10 - Essential (primary) hypertension SNOMED: 53380602 (4) CVA (cerebral vascular accident) ICD Codes: I63.9 - Cerebral infarction, unspecified SNOMED: 906565838 (5) Malnutrition ICD Codes: E46 - Unspecified protein-calorie malnutrition SNOMED: 15873873 (6) Diabetes ICD Codes: E11.9 - Type 2 diabetes mellitus without complications SNOMED: 69235811 (7) Anemia ICD Codes: D64.9 - Anemia, unspecified SNOMED: 122671826 (8) Pneumonia due to COVID-19 virus ICD Codes: U07.1 - COVID-19; J12.89 - Other viral pneumonia SNOMED: 106976837, 355082281 (9) UTI (urinary tract infection) ICD Codes: N39.0 - Urinary tract infection, site not specified SNOMED: 45341521 Status: unchanged Assessment/Plan: bowel regimen tyroid labs>>> reviewed monitor bowel movements will fu Subjective ROS Limited/Unobtainable: No Allergies: Coded Allergies: SULFAMETHOXAZOLE (Verified Allergy, Unknown, 11/03/19) TRIMETHOPRIM (Verified Allergy, Unknown, 11/03/19) Objective Last 24 Hour Vital Signs Date Time Temp Pulse Resp B/P (MAP) Pulse Ox O2 Delivery O2 Flow Rate FiO2 11/27/19 08:00 98.2 94 20 140/96 (111) 97 11/27/19 04:00 97.8 84 18 124/70 (88) 95 11/27/19 00:00 97.8 90 18 125/90 (102) 97 11/26/19 21:37 Nasal Cannula 2.0 11/26/19 20:00 98.2 96 18 132/91 (105) 97 11/26/19 16:00 97.8 71 18 131/72 (91) 97 11/26/19 12:00 98.5 79 17 136/81 (99) 97 Intake and Output 11/26/19 11/27/19 19:00 07:00 Intake Total 400 ml Balance 400 ml Other 400 ml # Voids 2 Laboratory Tests 11/27/19 04:00: White Blood Count 15.4H, Red Blood Count 4.43, Hemoglobin 13.2, Hematocrit 39.8 , Mean Corpuscular Volume 90, Mean Corpuscular Hemoglobin 29.8, Mean Corpuscular Hemoglobin Concent 33.2, Red Cell Distribution Width 15.0H, Platelet Count 308, Mean Platelet Volume 5.3L, Neutrophils (%) (Auto) 50.7, Lymphocytes (%) (Auto) 34.1, Monocytes (%) (Auto) 6.2, Eosinophils (%) (Auto) 7.6H, Basophils (%) (Auto) 1.4, Sodium Level 143, Potassium Level 5.1, Chloride Level 107, Carbon Dioxide Level 26, Anion Gap 10, Blood Urea Nitrogen 19H, Creatinine 1.0, Estimat Glomerular Filtration Rate 56.0, Glucose Level 68L, Calcium Level 9.7 Height (Feet): 5 Height (Inches): 3.00 Weight (Pounds): 166 General Appearance: no apparent distress EENT: normal ENT inspection Neck: supple Cardiovascular: normal rate Respiratory/Chest: decreased breath sounds Abdomen: normal bowel sounds, non tender, soft Extremities: non-tender Luke Noe MD November 27, 2019 09:13
--- NOTE | 2019-11-27 10:47 | Pulmonology Progress Note ---
Subjective ROS Limited/Unobtainable: No Interval Events: Now on 2L/min O2; none new Constitutional: Reports: no symptoms HEENT: Repors: no symptoms Respiratory: Reports: no symptoms Cardiovascular: Reports: no symptoms Gastrointestinal/Abdominal: Reports: no symptoms Allergies: Coded Allergies: SULFAMETHOXAZOLE (Verified Allergy, Unknown, 11/03/19) TRIMETHOPRIM (Verified Allergy, Unknown, 11/03/19) All Systems: reviewed and negative except above Objective Last 24 Hour Vital Signs Date Time Temp Pulse Resp B/P (MAP) Pulse Ox O2 Delivery O2 Flow Rate FiO2 11/27/19 09:00 Nasal Cannula 2.0 11/27/19 08:00 98.2 94 20 140/96 (111) 97 11/27/19 04:00 97.8 84 18 124/70 (88) 95 11/27/19 00:00 97.8 90 18 125/90 (102) 97 11/26/19 21:37 Nasal Cannula 2.0 11/26/19 20:00 98.2 96 18 132/91 (105) 97 11/26/19 16:00 97.8 71 18 131/72 (91) 97 11/26/19 12:00 98.5 79 17 136/81 (99) 97 Intake and Output 11/26/19 11/27/19 19:00 07:00 Intake Total 400 ml Balance 400 ml Other 400 ml # Voids 2 General Appearance: no acute distress HEENT: mucous membranes moist Respiratory/Chest: chest wall non-tender, decreased breath sounds Cardiovascular: normal peripheral pulses Abdomen: normal bowel sounds Extremities: no cyanosis Neurologic/Psychiatric: alert, responsive Laboratory Tests 11/27/19 04:00: White Blood Count 15.4H, Red Blood Count 4.43, Hemoglobin 13.2, Hematocrit 39.8 , Mean Corpuscular Volume 90, Mean Corpuscular Hemoglobin 29.8, Mean Corpuscular Hemoglobin Concent 33.2, Red Cell Distribution Width 15.0H, Platelet Count 308, Mean Platelet Volume 5.3L, Neutrophils (%) (Auto) 50.7, Lymphocytes (%) (Auto) 34.1, Monocytes (%) (Auto) 6.2, Eosinophils (%) (Auto) 7.6H, Basophils (%) (Auto) 1.4, Sodium Level 143, Potassium Level 5.1, Chloride Level 107, Carbon Dioxide Level 26, Anion Gap 10, Blood Urea Nitrogen 19H, Creatinine 1.0, Estimat Glomerular Filtration Rate 56.0, Glucose Level 68L, Calcium Level 9.7 Current Medications Medications (Trade) Dose Ordered Sig/Maryam Route PRN Reason Start Time Stop Time Status Last Admin Dose Admin Acetaminophen (Tylenol) 650 mg Q4H PRN ORAL MILD PAIN/TEMP >100.5 11/19/19 17:15 12/19/19 17:14 11/22/19 16:59 Ascorbic Acid (Vitamin C) 500 mg DAILY ORAL 11/17/19 09:00 12/08/19 08:59 11/27/19 08:33 Aspirin (Ecotrin) 81 mg DAILY ORAL 11/17/19 09:00 12/20/19 08:59 11/27/19 08:33 Dextrose (Dextrose 50%) 25 ml Q30M PRN IV Hypoglycemia 11/16/19 16:45 02/02/20 10:44 Dextrose (Dextrose 50%) 50 ml Q30M PRN IV Hypoglycemia 11/16/19 16:45 02/02/20 10:44 Diphenhydramine HCl (Benadryl) 50 mg Q6H PRN ORAL Itching 11/20/19 13:55 12/20/19 13:54 11/20/19 23:49 Docusate Sodium (Colace) 100 mg TIDPRN PRN ORAL Constipation 11/16/19 16:35 12/16/19 16:34 Haloperidol Lactate (Haldol) 5 mg Q6H PRN IM Agitation 11/20/19 15:45 01/04/20 15:44 Heparin Sodium (Porcine) (Heparin 5000 units/ml) 5,000 units EVERY 12 HOURS SUBQ 11/16/19 21:00 12/27/19 20:59 11/27/19 08:35 Lactulose (Cephulac) 10 gm THREE TIMES A DAY ORAL 11/16/19 18:00 12/13/19 12:59 11/27/19 08:33 Multivitamins (Multivitamins) 1 tab DAILY ORAL 11/17/19 09:00 12/08/19 08:59 11/27/19 08:33 Polyethylene Glycol (Miralax) 17 gm BEDTIME ORAL 11/16/19 21:00 12/13/19 20:59 11/26/19 20:43 Potassium Chloride (K-Dur) 40 meq TWICE A DAY ORAL 11/25/19 12:03 02/23/20 12:02 11/27/19 08:33 Assessment/Plan Assessment/Plan IMPRESSION: 1. UTI. 2. Hypoxemia. Improving; now on 2L/min 3. Hypertension. 4. Diabetes mellitus. 5. Previous CVA. 6. Cognitive impairment. 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 8. Bactrim allergy. 9. COVID 19 positive DISCUSSION: Continue oxygen and pulmonary hygiene. I will follow as measurement psychologist. SaO2 95% on 2L/min [facility] med surg Follow up CXR is better Woody Bradley M.D. Woody Bradley MD November 27, 2019 10:47
--- NOTE | 2019-11-27 11:42 | Surgery Progress Note ---
Surgery Progress Note Subjective Additional Comments no acute events labs noted exam stable Objective Last 24 Hour Vital Signs Date Time Temp Pulse Resp B/P (MAP) Pulse Ox O2 Delivery O2 Flow Rate FiO2 11/27/19 09:00 Nasal Cannula 2.0 11/27/19 08:00 98.2 94 20 140/96 (111) 97 11/27/19 04:00 97.8 84 18 124/70 (88) 95 11/27/19 00:00 97.8 90 18 125/90 (102) 97 11/26/19 21:37 Nasal Cannula 2.0 11/26/19 20:00 98.2 96 18 132/91 (105) 97 11/26/19 16:00 97.8 71 18 131/72 (91) 97 11/26/19 12:00 98.5 79 17 136/81 (99) 97 I&O Intake and Output 11/26/19 11/27/19 19:00 07:00 Intake Total 400 ml Balance 400 ml Other 400 ml # Voids 2 Dressing: saturated Cardiovascular: RSR Respiratory: decreased breath sounds Abdomen: soft, non-tender, present bowel sounds Extremities: no cyanosis Laboratory Tests Test 11/27/19 04:00 White Blood Count 15.4 K/UL (4.8-10.8) H Red Blood Count 4.43 M/UL (4.20-5.40) Hemoglobin 13.2 G/DL (12.0-16.0) Hematocrit 39.8 % (37.0-47.0) Mean Corpuscular Volume 90 FL (80-99) Mean Corpuscular Hemoglobin 29.8 PG (27.0-31.0) Mean Corpuscular Hemoglobin Concent 33.2 G/DL (32.0-36.0) Red Cell Distribution Width 15.0 % (11.6-14.8) H Platelet Count 308 K/UL (150-450) Mean Platelet Volume 5.3 FL (6.5-10.1) L Neutrophils (%) (Auto) 50.7 % (45.0-75.0) Lymphocytes (%) (Auto) 34.1 % (20.0-45.0) Monocytes (%) (Auto) 6.2 % (1.0-10.0) Eosinophils (%) (Auto) 7.6 % (0.0-3.0) H Basophils (%) (Auto) 1.4 % (0.0-2.0) Sodium Level 143 MMOL/L (136-145) Potassium Level 5.1 MMOL/L (3.5-5.1) Chloride Level 107 MMOL/L (98-107) Carbon Dioxide Level 26 MMOL/L (21-32) Anion Gap 10 mmol/L (5-15) Blood Urea Nitrogen 19 mg/dL (7-18) H Creatinine 1.0 MG/DL (0.55-1.30) Estimat Glomerular Filtration Rate 56.0 mL/min (>60) Glucose Level 68 MG/DL (74-106) L Calcium Level 9.7 MG/DL (8.5-10.1) Plan Problems: (1) Hypoxia Assessment & Plan: supplemental O2 monitor closely Patchy opacities throughout the lungs, increased compared to prior exam. (2) UTI (urinary tract infection) (3) Suspected 2019 novel coronavirus infection (4) Pneumonia due to COVID-19 virus Assessment & Plan: The heart is borderline enlarged. There are bilateral interstitial opacities diffusely. No definite focal airspace consolidation. The pleural spaces are clear. Impression: Borderline cardiomegaly. Bilateral interstitial disease. This is nonspecific, could indicate infiltrates, edema, among other possibilities on Non rebreather can desaturate Slightly improved but persistent and still extensive bilateral infiltrates (5) Fever (6) Anemia (7) Confusion (8) Diabetes (9) Renal failure (10) Malnutrition Assessment & Plan: DAILY ESTIMATED NEEDS: Needs based on Wound, DM/ 53kg abw 25-30 kcals/kg 7243-7372 total kcals 1.25-1.5 g protein/kg 66-79 g total protein 25-30 mL/kg 8643-2019 total fluid mLs NUTRITION DIAGNOSIS: * Increased kcal/prot intake needs R/T wound healing as evidenced by admitted w/ DTPI wound @ L ischium, non-blanching erythema at cleft of buttocks. * Altered nutrition related lab values R/T diabetes as evidenced by elev POC glu (174, 102, 151, 123, now improved), on NISS. (INACTIVE) CURRENT DIET:CCHO med liquify puree NTL -> pureed w/ thin + Glucerna BID PO DIET RECOMMENDATIONS: CCHO med/ texture per CREAM RIPENER ADDITIONAL RECOMMENDATIONS: * Per SNF: HT=61" JJ=107kac * Wound healing: add MVI x 1, Vit C 500mg QD, SYED BID * Monitor BGs, need to resume NISS- now w improved BGs * Texture downgrade for chewing deficit as per RN now on liquify puree/ NTL -> PUREED W/ THIN (11/21) * Monitor for continued improved intake (now eating 100% per EMR) (11) HTN (hypertension) (12) CVA (cerebral vascular accident) (13) Decubitus skin ulcer Assessment & Plan: Pt presented on admission with DTPI L ischium. Base of wound is purple, indurated. An area of hyperpigmentation noted distally but in close to wound bed. Non-blanching erythema cleft of buttocks. Hyperpigmentation from previous wound noted to R ischium. Within area of hyperpigmentation an area of non-blanchable erythema noted. No other skin concerns noted. fortunately DTI improving with close care and monitoring nutritional improvement necessary still as abl now 2.3 cont diet push intake will monitor Tx.Plan: Apply Moisture Barrier Paste to Sacrum. Cover with Optifoam drsg. Change every 3 days and prn. Apply Moisture Barrier Paste to R and L Ischium. Cover each area with Optifoam drsg. Change every 3 days and prn. Apply Cavilon Skin Barrier to both heels. Cover each heel with Optifoam drsg. Change every 7 days and prn. Reposition at least every 2hours or as tolerated. Off-load heels with Pillow. DAILY ESTIMATED NEEDS: Needs based on Wound, DM/ 53kg abw 25-30 kcals/kg 0719-0515 total kcals 1.25-1.5 g protein/kg 66-79 g total protein 25-30 mL/kg 5676-2606 total fluid mLs NUTRITION DIAGNOSIS: * Increased kcal/prot intake needs R/T wound healing as evidenced by admitted w/ DTPI wound @ L ischium, non-blanching erythema at cleft of buttocks. * Altered nutrition related lab values R/T diabetes as evidenced by elev POC glu (174, 102, 151, 123), on NISS. CURRENT DIET:REGULAR PO DIET RECOMMENDATIONS: CCHO med/ texture as tolerated or per CREAM RIPENER ADDITIONAL RECOMMENDATIONS: * Per SNF: HT=61" XX=371wdf * Wound healing: add MVI x 1, Vit C 500mg QD add Syed BID * Texture downgrade for chewing deficit as per RN -> consider pureed * Glucerna x 1 with variable intake (220kcal/10g prot each) Humble Sewell November 27, 2019 11:42
[2019-11-27 11:44] VITALS: BP 146/77
--- NOTE | 2019-11-27 13:58 | Infectious Diseases Prog Note ---
Assessment/Plan Assessment/Plan Assessment: Sepsis Fever, recurrent; SP Acute hypoxic respiratory failure- s/p simple mask, sp NRB, now on 2l NC Pnuemonia- 2ry to COVID19 -11/25 CXR: Unchanged bilateral right greater than left diffuse infiltrates. The heart is borderline enlarged. The pleural spaces are clear. -11/22 CXR: Patchy opacities throughout the lungs, increased compared to prior exam. -11/19 CXR: Slightly improved but persistent and still extensive bilateral infiltrates, since prior exam of 3 days earlier -11/16 CXR: Diffuse bilateral airspace opacities are slightly improved. -11/13 CXR: Unchanged, over 2 days, findings as above. -11/08 CXR: Interval worsening bilateral airspace opacities, worse in the right lung. -11/05 CXR: Slight worsening of bilateral right greater than left interstitial and airspace opacities, over 3 days. Most likely pneumonia but pulmonary edema also a possibility -11/02 CXR: Borderline cardiomegaly. Bilateral interstitial disease. This is nonspecific, could indicate infiltrates, edema, among other possibilities SARS-COV2 PCR + -Influenza sc neg -Ferritin 180 (11/19), 243 (11/17),338 (11/13)<568 (11/08)<- 841 (11/06) -CRP 5 (11/19), 6.7 (11/17)< 12 (11/13)< 7.9(11/10)<-11.2 (11/08) <- 7.1 (11/06) -Tspot neg Mild leukocytosis, recurrent; increasing -11/20 u/a wb 40-60, nit neg, leuk +3; ucx Neg -11/18 Bcx neg -11/13 Bcx Neg Drug rash 2ry to Zosyn; improving UTI -11/20 UA 40-60WBC but cx ng at 48hrs -11/10 u/a wbc olivia, nit neg, leuk +3; ucx 10-20k VRE (S amp) -u/a wbc tnct, nit neg, leuk +3; ucx >100k E.coli (hernandes S), >100k P.mirabilis ( R. Ceftriaxone, bactrim) Elevated LFTs, SP Dm2 HTN CVA SNF resident ([facility]) Plan: - Empiric Aztreonam and Micafungin pending repeat cultures -Will not start Plaquenil as not recommended by IDSA and NIH guidelines -11/20 SP Zyvox #8, SOlumedrol 60mg IV x1 (drug allergy) -11/18 SP ZOsyn #6- ?allergic reaction -11/11 SP Cefepime #8 -11/07 SP Azithromycin #5 -11/03 SP Ceftriaxone #2 -f/u cx -Monitor CBC/CMP, temperaturse -Monitor inflammatory markers, CXR -f/u CDiff, sp cx, Bcx x2 -u/a w/ reflex -COVID isolation- repeat covid test per SNF request Thank you for consulting [facility]. Will continue to follow along wiht you. Discussed with RN Subjective Allergies: Coded Allergies: SULFAMETHOXAZOLE (Verified Allergy, Unknown, 11/03/19) TRIMETHOPRIM (Verified Allergy, Unknown, 11/03/19) Subjective afebrile at 2l NC wbc increasing Objective Vital Signs Last 24 Hour Vital Signs Date Time Temp Pulse Resp B/P (MAP) Pulse Ox O2 Delivery O2 Flow Rate FiO2 11/27/19 11:44 98.6 90 21 146/77 (100) 97 11/27/19 09:00 Nasal Cannula 2.0 11/27/19 08:00 98.2 94 20 140/96 (111) 97 11/27/19 04:00 97.8 84 18 124/70 (88) 95 11/27/19 00:00 97.8 90 18 125/90 (102) 97 11/26/19 21:37 Nasal Cannula 2.0 11/26/19 20:00 98.2 96 18 132/91 (105) 97 11/26/19 16:00 97.8 71 18 131/72 (91) 97 Height (Feet): 5 Height (Inches): 3.00 Weight (Pounds): 166 Objective General Appearance: no acute distress HEENT: mucous membranes moist Respiratory/Chest: chest wall non-tender, decreased breath sounds Cardiovascular: normal peripheral pulses Abdomen: normal bowel sounds Extremities: no cyanosis Skin: erythematous maculopapular rash trunk, b/l arms, neck, face Laboratory Tests Test 11/27/19 04:00 White Blood Count 15.4 K/UL (4.8-10.8) H Red Blood Count 4.43 M/UL (4.20-5.40) Hemoglobin 13.2 G/DL (12.0-16.0) Hematocrit 39.8 % (37.0-47.0) Mean Corpuscular Volume 90 FL (80-99) Mean Corpuscular Hemoglobin 29.8 PG (27.0-31.0) Mean Corpuscular Hemoglobin Concent 33.2 G/DL (32.0-36.0) Red Cell Distribution Width 15.0 % (11.6-14.8) H Platelet Count 308 K/UL (150-450) Mean Platelet Volume 5.3 FL (6.5-10.1) L Neutrophils (%) (Auto) 50.7 % (45.0-75.0) Lymphocytes (%) (Auto) 34.1 % (20.0-45.0) Monocytes (%) (Auto) 6.2 % (1.0-10.0) Eosinophils (%) (Auto) 7.6 % (0.0-3.0) H Basophils (%) (Auto) 1.4 % (0.0-2.0) Sodium Level 143 MMOL/L (136-145) Potassium Level 5.1 MMOL/L (3.5-5.1) Chloride Level 107 MMOL/L (98-107) Carbon Dioxide Level 26 MMOL/L (21-32) Anion Gap 10 mmol/L (5-15) Blood Urea Nitrogen 19 mg/dL (7-18) H Creatinine 1.0 MG/DL (0.55-1.30) Estimat Glomerular Filtration Rate 56.0 mL/min (>60) Glucose Level 68 MG/DL (74-106) L Calcium Level 9.7 MG/DL (8.5-10.1) Current Medications Medications (Trade) Dose Ordered Sig/Maryam Route PRN Reason Start Time Stop Time Status Last Admin Dose Admin Acetaminophen (Tylenol) 650 mg Q4H PRN ORAL MILD PAIN/TEMP >100.5 11/19/19 17:15 12/19/19 17:14 11/22/19 16:59 Ascorbic Acid (Vitamin C) 500 mg DAILY ORAL 11/17/19 09:00 12/08/19 08:59 11/27/19 08:33 Aspirin (Ecotrin) 81 mg DAILY ORAL 11/17/19 09:00 12/20/19 08:59 11/27/19 08:33 Dextrose (Dextrose 50%) 25 ml Q30M PRN IV Hypoglycemia 11/16/19 16:45 02/02/20 10:44 Dextrose (Dextrose 50%) 50 ml Q30M PRN IV Hypoglycemia 11/16/19 16:45 02/02/20 10:44 Diphenhydramine HCl (Benadryl) 50 mg Q6H PRN ORAL Itching 11/20/19 13:55 12/20/19 13:54 11/20/19 23:49 Docusate Sodium (Colace) 100 mg TIDPRN PRN ORAL Constipation 11/16/19 16:35 12/16/19 16:34 Haloperidol Lactate (Haldol) 5 mg Q6H PRN IM Agitation 11/20/19 15:45 01/04/20 15:44 Heparin Sodium (Porcine) (Heparin 5000 units/ml) 5,000 units EVERY 12 HOURS SUBQ 11/16/19 21:00 12/27/19 20:59 11/27/19 08:35 Lactulose (Cephulac) 10 gm THREE TIMES A DAY ORAL 11/16/19 18:00 12/13/19 12:59 11/27/19 12:58 Multivitamins (Multivitamins) 1 tab DAILY ORAL 11/17/19 09:00 12/08/19 08:59 11/27/19 08:33 Polyethylene Glycol (Miralax) 17 gm BEDTIME ORAL 11/16/19 21:00 12/13/19 20:59 11/26/19 20:43 Potassium Chloride (K-Dur) 40 meq TWICE A DAY ORAL 11/25/19 12:03 02/23/20 12:02 11/27/19 08:33 Jenna Briseno M.D. November 27, 2019 13:58
--- NOTE | 2019-11-27 14:28 | Nephrology Progress Note ---
Assessment/Plan Problem List: (1) Renal failure (2) Electrolyte imbalance (3) Pneumonia due to COVID-19 virus (4) UTI (urinary tract infection) (5) Diabetes Assessment Renal parameters suggest dehydration and free water deficit, and also effect of Lasix use in the past Hypernatremia, Azotemia, high uric acid COVID positive pneumonia UTI Diabetes mellitus Hypertension History of CVA Allergy to Bactrim senior care resident Plan Potassium supplement as needed Previously D5W as needed for hypernatremia Continue per current treatment plan Abnormal electrolytes improving Monitor electrolytes and renal parameters Continue per consultants Per orders Positive for COVID-19 test Subjective ROS Limited/Unobtainable: No Constitutional: Reports: malaise Objective Objective Last 24 Hour Vital Signs Date Time Temp Pulse Resp B/P (MAP) Pulse Ox O2 Delivery O2 Flow Rate FiO2 11/27/19 11:44 98.6 90 21 146/77 (100) 97 11/27/19 09:00 Nasal Cannula 2.0 11/27/19 08:00 98.2 94 20 140/96 (111) 97 11/27/19 04:00 97.8 84 18 124/70 (88) 95 11/27/19 00:00 97.8 90 18 125/90 (102) 97 11/26/19 21:37 Nasal Cannula 2.0 11/26/19 20:00 98.2 96 18 132/91 (105) 97 11/26/19 16:00 97.8 71 18 131/72 (91) 97 Intake and Output 11/26/19 11/27/19 19:00 07:00 Intake Total 400 ml Balance 400 ml Other 400 ml # Voids 2 Laboratory Tests 11/27/19 04:00: White Blood Count 15.4H, Red Blood Count 4.43, Hemoglobin 13.2, Hematocrit 39.8 , Mean Corpuscular Volume 90, Mean Corpuscular Hemoglobin 29.8, Mean Corpuscular Hemoglobin Concent 33.2, Red Cell Distribution Width 15.0H, Platelet Count 308, Mean Platelet Volume 5.3L, Neutrophils (%) (Auto) 50.7, Lymphocytes (%) (Auto) 34.1, Monocytes (%) (Auto) 6.2, Eosinophils (%) (Auto) 7.6H, Basophils (%) (Auto) 1.4, Sodium Level 143, Potassium Level 5.1, Chloride Level 107, Carbon Dioxide Level 26, Anion Gap 10, Blood Urea Nitrogen 19H, Creatinine 1.0, Estimat Glomerular Filtration Rate 56.0, Glucose Level 68L, Calcium Level 9.7 Height (Feet): 5 Height (Inches): 3.00 Weight (Pounds): 166 General Appearance: no apparent distress Cardiovascular: tachycardia Respiratory/Chest: decreased breath sounds Abdomen: distended Objective No change Wisam Love MD November 27, 2019 14:28
[2019-11-27] MEDS: Aztreonam Inj 1 GM in D5W 55 ML IVPB SCH ×2 (15:19→21:07)
[2019-11-27 16:00] VITALS: BP 113/62
[2019-11-27 18:23] LABS: APPEARANCE,URINE VERY CLOUDY; BILIRUBIN, URINE NEGATIVE (NEGATIVE); COLOR,URINE AMBER; GLUCOSE, URINE (UA) NEGATIVE (NEGATIVE); KETONES,URINE NEGATIVE (NEGATIVE); LEUKOCYTE ESTERASE ,URINE 3+ (NEGATIVE); NITRITE,URINE POSITIVE (NEGATIVE); PH,URINE 6.5 (4.5-8.0); PROTEIN,URINE 2+ (NEGATIVE); UROBILINOGEN,URINE NORMAL MG/DL (0.0-1.0)
[2019-11-27] MEDS: Micafungin 100 MG in NS 110 ML IVPB SCH (18:28)
[2019-11-27 20:00] VITALS: BP 117/92
[2019-11-27] MEDS: Miralax 17gm pkt ORAL SCH (20:37)
--- NOTE | 2019-11-27 22:49 | Psych Consult Progress Note ---
Psychiatry Progress Note Psychiatry Progress Note Medications Current Medications Medications (Trade) Dose Ordered Sig/Maryam Route PRN Reason Start Time Stop Time Status Last Admin Dose Admin Acetaminophen (Tylenol) 650 mg Q4H PRN ORAL MILD PAIN/TEMP >100.5 11/19/19 17:15 12/19/19 17:14 11/22/19 16:59 Ascorbic Acid (Vitamin C) 500 mg DAILY ORAL 11/17/19 09:00 12/08/19 08:59 11/27/19 08:33 Aspirin (Ecotrin) 81 mg DAILY ORAL 11/17/19 09:00 12/20/19 08:59 11/27/19 08:33 Aztreonam 1 gm/ Dextrose 55 ml @ 110 mls/hr Q8HR IVPB 11/27/19 15:00 12/04/19 14:59 11/27/19 21:07 Dextrose (Dextrose 50%) 25 ml Q30M PRN IV Hypoglycemia 11/16/19 16:45 02/02/20 10:44 Dextrose (Dextrose 50%) 50 ml Q30M PRN IV Hypoglycemia 11/16/19 16:45 02/02/20 10:44 Diphenhydramine HCl (Benadryl) 50 mg Q6H PRN ORAL Itching 11/20/19 13:55 12/20/19 13:54 11/20/19 23:49 Docusate Sodium (Colace) 100 mg TIDPRN PRN ORAL Constipation 11/16/19 16:35 12/16/19 16:34 Haloperidol Lactate (Haldol) 5 mg Q6H PRN IM Agitation 11/20/19 15:45 01/04/20 15:44 Heparin Sodium (Porcine) (Heparin 5000 units/ml) 5,000 units EVERY 12 HOURS SUBQ 11/16/19 21:00 12/27/19 20:59 11/27/19 20:38 Lactulose (Cephulac) 10 gm THREE TIMES A DAY ORAL 11/16/19 18:00 12/13/19 12:59 11/27/19 17:08 Micafungin Sodium 100 mg/Sodium Chloride 110 ml @ 110 mls/hr Q24H IVPB 11/27/19 18:00 12/04/19 17:59 11/27/19 18:28 Multivitamins (Multivitamins) 1 tab DAILY ORAL 11/17/19 09:00 12/08/19 08:59 11/27/19 08:33 Polyethylene Glycol (Miralax) 17 gm BEDTIME ORAL 11/16/19 21:00 12/13/19 20:59 11/27/19 20:37 Potassium Chloride (K-Dur) 40 meq TWICE A DAY ORAL 11/25/19 12:03 02/23/20 12:02 11/27/19 17:08 Neurological/Psychiatric: Reports: anxiety, depressed, emotional problems Allergies: Coded Allergies: PIPERACILLIN (Verified Allergy, Unknown, Rash, 11/27/19) SULFAMETHOXAZOLE (Verified Allergy, Unknown, 11/03/19) TAZOBACTAM (Verified Allergy, Unknown, Rash, 11/27/19) TRIMETHOPRIM (Verified Allergy, Unknown, 11/03/19) Objective Data Height (Feet): 5 Height (Inches): 3.00 Weight (Pounds): 166 General Appearance: no apparent distress, alert, confused, agitated Additional Comments: alert and disoriented to situation and date. Mood is anxious. Affect is flat. Thought process is concrete. Thought content, no suicidal or homicidal ideation. Cognition is impaired. Insight and judgment are impaired. Assessment/Plan Status: stable, progressing, unchanged Assessment/Plan: ASSESSMENT: Stable. PLAN: 1. We will continue p.r.n. medication. 2. Discussed with the nurse. Anu Hubbard MD November 27, 2019 22:49
[2019-11-28] VITALS: BP 124/75
[2019-11-28 04:00] VITALS: BP 137/82
[2019-11-28] MEDS: Aztreonam Inj 1 GM in D5W 55 ML IVPB SCH ×3 (05:49→21:07)
[2019-11-28 06:39] LABS: BASOPHILS % (AUTO) 1.6 % (0.0-2.0); EOSINOPHILS % (AUTO) 9.2 % (0.0-3.0); HEMATOCRIT 36.9 % (37.0-47.0); HEMOGLOBIN 12.5 G/DL (12.0-16.0); LYMPHOCYTES % (AUTO) 35.6 % (20.0-45.0); MEAN CORPUSCULAR VOLUME 89 FL (80-99); MONOCYTES % (AUTO) 7.2 % (1.0-10.0); NEUTROPHILS % (AUTO) 46.3 % (45.0-75.0); PLATELET COUNT 352 K/UL (150-450); RED BLOOD COUNT 4.14 M/UL (4.20-5.40); RED CELL DISTRIBUTION WIDTH 14.7 % (11.6-14.8); WHITE BLOOD COUNT 16.6 K/UL (4.8-10.8)
[2019-11-28 06:48] LABS: ANION GAP 12 mmol/L (5-15); BLOOD UREA NITROGEN 22 mg/dL (7-18); CALCIUM 9.8 MG/DL (8.5-10.1); CARBON DIOXIDE 24 MMOL/L (21-32); CHLORIDE 101 MMOL/L (98-107); POTASSIUM 4.9 MMOL/L (3.5-5.1); SODIUM 137 MMOL/L (136-145)
[2019-11-28 08:00] VITALS: BP 140/86
[2019-11-28] MEDS: Ascorbic Acid 500mg tab ORAL SCH (08:36)
[2019-11-28] MEDS: Aspirin EC 81mg tab ORAL SCH (08:36)
[2019-11-28] MEDS: Lactulose 10gm/15ml UDC ORAL SCH ×3 (08:36→17:31)
[2019-11-28] MEDS: Heparin 5000 units/ml inj SUBQ SCH ×2 (08:37→21:07)
--- NOTE | 2019-11-28 10:08 | General Progress Note ---
Assessment/Plan Problem List: (1) Electrolyte imbalance ICD Codes: E87.8 - Other disorders of electrolyte and fluid balance, not elsewhere classified SNOMED: 712574453 (2) Decubitus skin ulcer ICD Codes: L89.90 - Pressure ulcer of unspecified site, unspecified stage SNOMED: 552732513 (3) HTN (hypertension) ICD Codes: I10 - Essential (primary) hypertension SNOMED: 16602765 (4) CVA (cerebral vascular accident) ICD Codes: I63.9 - Cerebral infarction, unspecified SNOMED: 806473210 (5) Malnutrition ICD Codes: E46 - Unspecified protein-calorie malnutrition SNOMED: 56072316 (6) Diabetes ICD Codes: E11.9 - Type 2 diabetes mellitus without complications SNOMED: 38557760 (7) Anemia ICD Codes: D64.9 - Anemia, unspecified SNOMED: 092067948 (8) Pneumonia due to COVID-19 virus ICD Codes: U07.1 - COVID-19; J12.89 - Other viral pneumonia SNOMED: 425001216, 598308240 (9) UTI (urinary tract infection) ICD Codes: N39.0 - Urinary tract infection, site not specified SNOMED: 34014403 Status: stable, progressing, unchanged Assessment/Plan: bowel regimen tyroid labs>>> reviewed monitor bowel movements will fu Subjective ROS Limited/Unobtainable: No Allergies: Coded Allergies: PIPERACILLIN (Verified Allergy, Unknown, Rash, 11/27/19) SULFAMETHOXAZOLE (Verified Allergy, Unknown, 11/03/19) TAZOBACTAM (Verified Allergy, Unknown, Rash, 11/27/19) TRIMETHOPRIM (Verified Allergy, Unknown, 11/03/19) Objective Last 24 Hour Vital Signs Date Time Temp Pulse Resp B/P (MAP) Pulse Ox O2 Delivery O2 Flow Rate FiO2 11/28/19 08:00 98.0 96 20 140/86 (104) 96 11/28/19 04:00 98.0 102 20 137/82 (100) 93 11/28/19 00:00 98.2 92 20 124/75 (91) 96 11/27/19 21:19 Nasal Cannula 2.0 11/27/19 20:00 98.2 84 20 117/92 (100) 96 11/27/19 16:00 98.1 97 20 113/62 (79) 96 11/27/19 11:44 98.6 90 21 146/77 (100) 97 Intake and Output 11/27/19 11/28/19 19:00 07:00 Intake Total 755 ml Balance 755 ml Intake Oral 700 ml IV Total 55 ml # Voids 1 2 Laboratory Tests 11/27/19 16:00: Urine Color Kristin, Urine Appearance Very cloudy, Urine pH 6.5, Urine Specific [place] 1.010, Urine Protein 2+H, Urine Glucose (UA) Negative, Urine Ketones Negative, Urine Blood 3+H, Urine Nitrite PositiveH, Urine Bilirubin Negative, Urine Ictotest Negative, Urine Urobilinogen Normal, Urine Leukocyte Esterase 3+H , Urine RBC 15-20H, Urine WBC TntcH, Urine Squamous Epithelial Cells ManyH, Urine Bacteria ManyH 11/28/19 04:00: White Blood Count 16.6H, Red Blood Count 4.14L, Hemoglobin 12.5, Hematocrit 36.9L, Mean Corpuscular Volume 89, Mean Corpuscular Hemoglobin 30.2, Mean Corpuscular Hemoglobin Concent 33.8, Red Cell Distribution Width 14.7, Platelet Count 352, Mean Platelet Volume 5.6L, Neutrophils (%) (Auto) 46.3, Lymphocytes ( %) (Auto) 35.6, Monocytes (%) (Auto) 7.2, Eosinophils (%) (Auto) 9.2H, Basophils (%) (Auto) 1.6, Sodium Level 137, Potassium Level 4.9, Chloride Level 101, Carbon Dioxide Level 24, Anion Gap 12, Blood Urea Nitrogen 22H, Creatinine 1.0, Estimat Glomerular Filtration Rate 56.0, Glucose Level 89, Calcium Level 9.8 Height (Feet): 5 Height (Inches): 3.00 Weight (Pounds): 166 General Appearance: no apparent distress EENT: normal ENT inspection Neck: supple Cardiovascular: normal rate Respiratory/Chest: decreased breath sounds Abdomen: normal bowel sounds, non tender, soft Extremities: non-tender Luke Noe MD November 28, 2019 10:08
--- NOTE | 2019-11-28 10:39 | Pulmonology Progress Note ---
Subjective ROS Limited/Unobtainable: No Interval Events: Now on 2L/min O2; none new Constitutional: Reports: no symptoms HEENT: Repors: no symptoms Respiratory: Reports: no symptoms Cardiovascular: Reports: no symptoms Gastrointestinal/Abdominal: Reports: no symptoms Allergies: Coded Allergies: PIPERACILLIN (Verified Allergy, Unknown, Rash, 11/27/19) SULFAMETHOXAZOLE (Verified Allergy, Unknown, 11/03/19) TAZOBACTAM (Verified Allergy, Unknown, Rash, 11/27/19) TRIMETHOPRIM (Verified Allergy, Unknown, 11/03/19) All Systems: reviewed and negative except above Objective Last 24 Hour Vital Signs Date Time Temp Pulse Resp B/P (MAP) Pulse Ox O2 Delivery O2 Flow Rate FiO2 11/28/19 09:00 Nasal Cannula 2.0 11/28/19 08:00 98.0 96 20 140/86 (104) 96 11/28/19 04:00 98.0 102 20 137/82 (100) 93 11/28/19 00:00 98.2 92 20 124/75 (91) 96 11/27/19 21:19 Nasal Cannula 2.0 11/27/19 20:00 98.2 84 20 117/92 (100) 96 11/27/19 16:00 98.1 97 20 113/62 (79) 96 11/27/19 11:44 98.6 90 21 146/77 (100) 97 Intake and Output 11/27/19 11/28/19 19:00 07:00 Intake Total 755 ml Balance 755 ml Intake Oral 700 ml IV Total 55 ml # Voids 1 2 General Appearance: no acute distress HEENT: mucous membranes moist Respiratory/Chest: chest wall non-tender, decreased breath sounds Cardiovascular: normal peripheral pulses Abdomen: normal bowel sounds Extremities: no cyanosis Neurologic/Psychiatric: alert, responsive Microbiology Date/Time Source Procedure Growth Status 11/25/19 17:15 Nasopharynx Coronavirus COVID-19 PCR ([facility]SA) - Final Complete 11/27/19 16:00 Urine,Clean Catch Urine Culture - Preliminary Resulted Laboratory Tests 11/27/19 16:00: Urine Color Kristin, Urine Appearance Very cloudy, Urine pH 6.5, Urine Specific [place] 1.010, Urine Protein 2+H, Urine Glucose (UA) Negative, Urine Ketones Negative, Urine Blood 3+H, Urine Nitrite PositiveH, Urine Bilirubin Negative, Urine Ictotest Negative, Urine Urobilinogen Normal, Urine Leukocyte Esterase 3+H , Urine RBC 15-20H, Urine WBC TntcH, Urine Squamous Epithelial Cells ManyH, Urine Bacteria ManyH 11/28/19 04:00: White Blood Count 16.6H, Red Blood Count 4.14L, Hemoglobin 12.5, Hematocrit 36.9L, Mean Corpuscular Volume 89, Mean Corpuscular Hemoglobin 30.2, Mean Corpuscular Hemoglobin Concent 33.8, Red Cell Distribution Width 14.7, Platelet Count 352, Mean Platelet Volume 5.6L, Neutrophils (%) (Auto) 46.3, Lymphocytes ( %) (Auto) 35.6, Monocytes (%) (Auto) 7.2, Eosinophils (%) (Auto) 9.2H, Basophils (%) (Auto) 1.6, Sodium Level 137, Potassium Level 4.9, Chloride Level 101, Carbon Dioxide Level 24, Anion Gap 12, Blood Urea Nitrogen 22H, Creatinine 1.0, Estimat Glomerular Filtration Rate 56.0, Glucose Level 89, Calcium Level 9.8 Current Medications Medications (Trade) Dose Ordered Sig/Maryam Route PRN Reason Start Time Stop Time Status Last Admin Dose Admin Acetaminophen (Tylenol) 650 mg Q4H PRN ORAL MILD PAIN/TEMP >100.5 11/19/19 17:15 12/19/19 17:14 11/22/19 16:59 Ascorbic Acid (Vitamin C) 500 mg DAILY ORAL 11/17/19 09:00 12/08/19 08:59 11/28/19 08:36 Aspirin (Ecotrin) 81 mg DAILY ORAL 11/17/19 09:00 12/20/19 08:59 11/28/19 08:36 Aztreonam 1 gm/ Dextrose 55 ml @ 110 mls/hr Q8HR IVPB 11/27/19 15:00 12/04/19 14:59 11/28/19 05:49 Dextrose (Dextrose 50%) 25 ml Q30M PRN IV Hypoglycemia 11/16/19 16:45 02/02/20 10:44 Dextrose (Dextrose 50%) 50 ml Q30M PRN IV Hypoglycemia 11/16/19 16:45 02/02/20 10:44 Diphenhydramine HCl (Benadryl) 50 mg Q6H PRN ORAL Itching 5/6/20 13:55 12/20/19 13:54 11/20/19 23:49 Docusate Sodium (Colace) 100 mg TIDPRN PRN ORAL Constipation 11/16/19 16:35 12/16/19 16:34 Haloperidol Lactate (Haldol) 5 mg Q6H PRN IM Agitation 11/20/19 15:45 01/04/20 15:44 Heparin Sodium (Porcine) (Heparin 5000 units/ml) 5,000 units EVERY 12 HOURS SUBQ 11/16/19 21:00 12/27/19 20:59 11/28/19 08:37 Lactulose (Cephulac) 10 gm THREE TIMES A DAY ORAL 11/16/19 18:00 12/13/19 12:59 11/28/19 08:36 Micafungin Sodium 100 mg/Sodium Chloride 110 ml @ 110 mls/hr Q24H IVPB 11/27/19 18:00 12/04/19 17:59 11/27/19 18:28 Multivitamins (Multivitamins) 1 tab DAILY ORAL 11/17/19 09:00 12/08/19 08:59 11/28/19 08:36 Polyethylene Glycol (Miralax) 17 gm BEDTIME ORAL 11/16/19 21:00 12/13/19 20:59 11/27/19 20:37 Potassium Chloride (K-Dur) 40 meq TWICE A DAY ORAL 11/25/19 12:03 02/23/20 12:02 11/28/19 08:36 Assessment/Plan Assessment/Plan IMPRESSION: 1. UTI. 2. Hypoxemia. Improving; now on 2L/min 3. Hypertension. 4. Diabetes mellitus. 5. Previous CVA. 6. Cognitive impairment. 7. senior care resident. 8. Bactrim allergy. 9. COVID 19 positive DISCUSSION: Continue oxygen and pulmonary hygiene. 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 SaO2 95% on 2L/min [facility] med surg Follow up CXR is better Mara Arellano Omar Syed MD November 28, 2019 10:39
[2019-11-28 12:00] VITALS: BP 137/89
--- NOTE | 2019-11-28 12:25 | Infectious Diseases Prog Note ---
Assessment/Plan Assessment/Plan Assessment: Sepsis Fever, recurrent; SP Acute hypoxic respiratory failure- s/p simple mask, sp NRB, now on 2l NC Pnuemonia- 2ry to COVID19 -11/25 CXR: Unchanged bilateral right greater than left diffuse infiltrates. The heart is borderline enlarged. The pleural spaces are clear. -11/22 CXR: Patchy opacities throughout the lungs, increased compared to prior exam. -11/19 CXR: Slightly improved but persistent and still extensive bilateral infiltrates, since prior exam of 3 days earlier -11/16 CXR: Diffuse bilateral airspace opacities are slightly improved. -11/13 CXR: Unchanged, over 2 days, findings as above. -11/08 CXR: Interval worsening bilateral airspace opacities, worse in the right lung. -11/05 CXR: Slight worsening of bilateral right greater than left interstitial and airspace opacities, over 3 days. Most likely pneumonia but pulmonary edema also a possibility -11/02 CXR: Borderline cardiomegaly. Bilateral interstitial disease. This is nonspecific, could indicate infiltrates, edema, among other possibilities SARS-COV2 PCR + -Influenza sc neg -Ferritin 180 (11/19), 243 (11/17),338 (11/13)<568 (11/08)<- 841 (11/06) -CRP 5 (11/19), 6.7 (11/17)< 12 (11/13)< 7.9(11/10)<-11.2 (11/08) <- 7.1 (11/06) -Tspot neg Mild leukocytosis, recurrent; increasing -11/26 wbc olivia, nit +, leuk +3; ucx p Bcx p -11/20 u/a wb 40-60, nit neg, leuk +3; ucx Neg -11/18 Bcx neg -11/13 Bcx Neg Drug rash 2ry to Zosyn; improving UTI -11/20 UA 40-60WBC but cx ng at 48hrs -11/10 u/a wbc olivia, nit neg, leuk +3; ucx 10-20k VRE (S amp) -u/a wbc tnct, nit neg, leuk +3; ucx >100k E.coli (hernandes S), >100k P.mirabilis ( R. Ceftriaxone, bactrim) Elevated LFTs, SP Dm2 HTN CVA SNF resident ([facility]) Plan: -Add empiric Zyvox given prior hx of VRE and recurrent UTI now - Empiric Aztreonam and Micafungin #2 pending repeat cultures -Will not start Plaquenil as not recommended by IDSA and NIH guidelines -11/20 SP Zyvox #8, SOlumedrol 60mg IV x1 (drug allergy) -11/18 SP ZOsyn #6- ?allergic reaction -11/11 SP Cefepime #8 -11/07 SP Azithromycin #5 -11/03 SP Ceftriaxone #2 -f/u cx -Monitor CBC/CMP, temperaturse -Monitor inflammatory markers, CXR -f/u CDiff, sp cx, Bcx x2, ucx -COVID isolation- 1st repeat negative 11/24; 2nd repeat sent 11/26 -CXR am Thank you for consulting [facility]. Will continue to follow along wiht you. Discussed with RN Subjective Allergies: Coded Allergies: PIPERACILLIN (Verified Allergy, Unknown, Rash, 11/27/19) SULFAMETHOXAZOLE (Verified Allergy, Unknown, 11/03/19) TAZOBACTAM (Verified Allergy, Unknown, Rash, 11/27/19) TRIMETHOPRIM (Verified Allergy, Unknown, 11/03/19) Subjective afebrile at 2l NC wbc increasing Objective Vital Signs Last 24 Hour Vital Signs Date Time Temp Pulse Resp B/P (MAP) Pulse Ox O2 Delivery O2 Flow Rate FiO2 11/28/19 09:00 Nasal Cannula 2.0 11/28/19 08:00 98.0 96 20 140/86 (104) 96 11/28/19 04:00 98.0 102 20 137/82 (100) 93 11/28/19 00:00 98.2 92 20 124/75 (91) 96 11/27/19 21:19 Nasal Cannula 2.0 11/27/19 20:00 98.2 84 20 117/92 (100) 96 11/27/19 16:00 98.1 97 20 113/62 (79) 96 Height (Feet): 5 Height (Inches): 3.00 Weight (Pounds): 166 Objective General Appearance: no acute distress HEENT: mucous membranes moist Respiratory/Chest: chest wall non-tender, decreased breath sounds Cardiovascular: normal peripheral pulses Abdomen: normal bowel sounds Extremities: no cyanosis Skin: erythematous maculopapular rash trunk, b/l arms, neck, face Microbiology Date/Time Source Procedure Growth Status 11/25/19 17:15 Nasopharynx Coronavirus COVID-19 PCR ([facility]ANESSA) - Final Complete 11/27/19 16:00 Urine,Clean Catch Urine Culture - Preliminary Resulted Laboratory Tests Test 11/27/19 16:00 11/28/19 04:00 Urine Color Kristin Urine Appearance Very cloudy Urine pH 6.5 (4.5-8.0) Urine Specific [place] 1.010 (1.005-1.035) Urine Protein 2+ (NEGATIVE) H Urine Glucose (UA) Negative (NEGATIVE) Urine Ketones Negative (NEGATIVE) Urine Blood 3+ (NEGATIVE) H Urine Nitrite Positive (NEGATIVE) H Urine Bilirubin Negative (NEGATIVE) Urine Ictotest Negative (NEGATIVE) Urine Urobilinogen Normal MG/DL (0.0-1.0) Urine Leukocyte Esterase 3+ (NEGATIVE) H Urine RBC 15-20 /HPF (0 - 2) H Urine WBC Tntc /HPF (0 - 2) H Urine Squamous Epithelial Cells Many /LPF (NONE/OCC) H Urine Bacteria Many /HPF (NONE) H White Blood Count 16.6 K/UL (4.8-10.8) H Red Blood Count 4.14 M/UL (4.20-5.40) L Hemoglobin 12.5 G/DL (12.0-16.0) Hematocrit 36.9 % (37.0-47.0) L Mean Corpuscular Volume 89 FL (80-99) Mean Corpuscular Hemoglobin 30.2 PG (27.0-31.0) Mean Corpuscular Hemoglobin Concent 33.8 G/DL (32.0-36.0) Red Cell Distribution Width 14.7 % (11.6-14.8) Platelet Count 352 K/UL (150-450) Mean Platelet Volume 5.6 FL (6.5-10.1) L Neutrophils (%) (Auto) 46.3 % (45.0-75.0) Lymphocytes (%) (Auto) 35.6 % (20.0-45.0) Monocytes (%) (Auto) 7.2 % (1.0-10.0) Eosinophils (%) (Auto) 9.2 % (0.0-3.0) H Basophils (%) (Auto) 1.6 % (0.0-2.0) Sodium Level 137 MMOL/L (136-145) Potassium Level 4.9 MMOL/L (3.5-5.1) Chloride Level 101 MMOL/L (98-107) Carbon Dioxide Level 24 MMOL/L (21-32) Anion Gap 12 mmol/L (5-15) Blood Urea Nitrogen 22 mg/dL (7-18) H Creatinine 1.0 MG/DL (0.55-1.30) Estimat Glomerular Filtration Rate 56.0 mL/min (>60) Glucose Level 89 MG/DL (74-106) Calcium Level 9.8 MG/DL (8.5-10.1) Current Medications Medications (Trade) Dose Ordered Sig/Maryam Route PRN Reason Start Time Stop Time Status Last Admin Dose Admin Acetaminophen (Tylenol) 650 mg Q4H PRN ORAL MILD PAIN/TEMP >100.5 11/19/19 17:15 12/19/19 17:14 11/22/19 16:59 Ascorbic Acid (Vitamin C) 500 mg DAILY ORAL 11/17/19 09:00 12/08/19 08:59 11/28/19 08:36 Aspirin (Ecotrin) 81 mg DAILY ORAL 11/17/19 09:00 12/20/19 08:59 11/28/19 08:36 Aztreonam 1 gm/ Dextrose 55 ml @ 110 mls/hr Q8HR IVPB 11/27/19 15:00 12/04/19 14:59 11/28/19 05:49 Dextrose (Dextrose 50%) 25 ml Q30M PRN IV Hypoglycemia 11/16/19 16:45 02/02/20 10:44 Dextrose (Dextrose 50%) 50 ml Q30M PRN IV Hypoglycemia 11/16/19 16:45 02/02/20 10:44 Diphenhydramine HCl (Benadryl) 50 mg Q6H PRN ORAL Itching 11/20/19 13:55 12/20/19 13:54 11/20/19 23:49 Docusate Sodium (Colace) 100 mg TIDPRN PRN ORAL Constipation 11/16/19 16:35 12/16/19 16:34 Haloperidol Lactate (Haldol) 5 mg Q6H PRN IM Agitation 11/20/19 15:45 01/04/20 15:44 Heparin Sodium (Porcine) (Heparin 5000 units/ml) 5,000 units EVERY 12 HOURS SUBQ 11/16/19 21:00 12/27/19 20:59 11/28/19 08:37 Lactulose (Cephulac) 10 gm THREE TIMES A DAY ORAL 11/16/19 18:00 12/13/19 12:59 11/28/19 08:36 Micafungin Sodium 100 mg/Sodium Chloride 110 ml @ 110 mls/hr Q24H IVPB 11/27/19 18:00 12/04/19 17:59 11/27/19 18:28 Multivitamins (Multivitamins) 1 tab DAILY ORAL 11/17/19 09:00 12/08/19 08:59 11/28/19 08:36 Polyethylene Glycol (Miralax) 17 gm BEDTIME ORAL 11/16/19 21:00 12/13/19 20:59 11/27/19 20:37 Jenna Briseno M.D. November 28, 2019 12:24
--- NOTE | 2019-11-28 12:56 | Nephrology Progress Note ---
Assessment/Plan Problem List: (1) Renal failure (2) Electrolyte imbalance (3) Pneumonia due to COVID-19 virus (4) UTI (urinary tract infection) (5) Diabetes Assessment Renal parameters suggest dehydration and free water deficit, and also effect of Lasix use in the past Hypernatremia, Azotemia, high uric acid COVID positive pneumonia UTI Diabetes mellitus Hypertension History of CVA Allergy to Bactrim jail resident Plan Potassium supplement as needed Discontinue current potassium order since potassium is 4.9 today Previously D5W as needed for hypernatremia Continue per current treatment plan Abnormal electrolytes improving Monitor electrolytes and renal parameters Continue per consultants Per orders Positive for COVID-19 test Subjective ROS Limited/Unobtainable: No Constitutional: Reports: malaise, weakness Objective Objective Last 24 Hour Vital Signs Date Time Temp Pulse Resp B/P (MAP) Pulse Ox O2 Delivery O2 Flow Rate FiO2 11/28/19 09:00 Nasal Cannula 2.0 11/28/19 08:00 98.0 96 20 140/86 (104) 96 11/28/19 04:00 98.0 102 20 137/82 (100) 93 11/28/19 00:00 98.2 92 20 124/75 (91) 96 11/27/19 21:19 Nasal Cannula 2.0 11/27/19 20:00 98.2 84 20 117/92 (100) 96 11/27/19 16:00 98.1 97 20 113/62 (79) 96 Intake and Output 11/27/19 11/28/19 19:00 07:00 Intake Total 755 ml Balance 755 ml Intake Oral 700 ml IV Total 55 ml # Voids 1 2 Laboratory Tests 11/27/19 16:00: Urine Color Kristin, Urine Appearance Very cloudy, Urine pH 6.5, Urine Specific [place] 1.010, Urine Protein 2+H, Urine Glucose (UA) Negative, Urine Ketones Negative, Urine Blood 3+H, Urine Nitrite PositiveH, Urine Bilirubin Negative, Urine Ictotest Negative, Urine Urobilinogen Normal, Urine Leukocyte Esterase 3+H , Urine RBC 15-20H, Urine WBC TntcH, Urine Squamous Epithelial Cells ManyH, Urine Bacteria ManyH 11/28/19 04:00: White Blood Count 16.6H, Red Blood Count 4.14L, Hemoglobin 12.5, Hematocrit 36.9L, Mean Corpuscular Volume 89, Mean Corpuscular Hemoglobin 30.2, Mean Corpuscular Hemoglobin Concent 33.8, Red Cell Distribution Width 14.7, Platelet Count 352, Mean Platelet Volume 5.6L, Neutrophils (%) (Auto) 46.3, Lymphocytes ( %) (Auto) 35.6, Monocytes (%) (Auto) 7.2, Eosinophils (%) (Auto) 9.2H, Basophils (%) (Auto) 1.6, Sodium Level 137, Potassium Level 4.9, Chloride Level 101, Carbon Dioxide Level 24, Anion Gap 12, Blood Urea Nitrogen 22H, Creatinine 1.0, Estimat Glomerular Filtration Rate 56.0, Glucose Level 89, Calcium Level 9.8 Height (Feet): 5 Height (Inches): 3.00 Weight (Pounds): 166 General Appearance: no apparent distress, lethargic Cardiovascular: tachycardia Respiratory/Chest: decreased breath sounds Abdomen: soft Objective No change Wisam Love MD November 28, 2019 12:56
--- NOTE | 2019-11-28 13:10 | General Progress Note ---
Assessment/Plan Problem List: (1) Malnutrition ICD Codes: E46 - Unspecified protein-calorie malnutrition SNOMED: 33793485 (2) Anemia ICD Codes: D64.9 - Anemia, unspecified SNOMED: 668373059 (3) Fever ICD Codes: R50.9 - Fever, unspecified SNOMED: 860741944 (4) CVA (cerebral vascular accident) ICD Codes: I63.9 - Cerebral infarction, unspecified SNOMED: 303451562 (5) HTN (hypertension) ICD Codes: I10 - Essential (primary) hypertension SNOMED: 65371136 (6) Diabetes ICD Codes: E11.9 - Type 2 diabetes mellitus without complications SNOMED: 17117573 (7) Renal failure ICD Codes: N19 - Unspecified kidney failure SNOMED: 60198815 (8) Confusion ICD Codes: R41.0 - Disorientation, unspecified SNOMED: 032784567 (9) Hypoxia ICD Codes: R09.02 - Hypoxemia SNOMED: 317932225 (10) Suspected 2019 novel coronavirus infection ICD Codes: R68.89 - Other general symptoms and signs SNOMED: 110464214 (11) UTI (urinary tract infection) ICD Codes: N39.0 - Urinary tract infection, site not specified SNOMED: 73141469 Status: unchanged Assessment/Plan: o2 pulm tx abx bp bs control cbc bmp am Subjective Constitutional: Reports: weakness Allergies: Coded Allergies: PIPERACILLIN (Verified Allergy, Unknown, Rash, 11/27/19) SULFAMETHOXAZOLE (Verified Allergy, Unknown, 11/03/19) TAZOBACTAM (Verified Allergy, Unknown, Rash, 11/27/19) TRIMETHOPRIM (Verified Allergy, Unknown, 11/03/19) All Systems: reviewed and negative except above Subjective o2 nc calm in bed Objective Last 24 Hour Vital Signs Date Time Temp Pulse Resp B/P (MAP) Pulse Ox O2 Delivery O2 Flow Rate FiO2 11/28/19 09:00 Nasal Cannula 2.0 11/28/19 08:00 98.0 96 20 140/86 (104) 96 11/28/19 04:00 98.0 102 20 137/82 (100) 93 11/28/19 00:00 98.2 92 20 124/75 (91) 96 11/27/19 21:19 Nasal Cannula 2.0 5/13/20 20:00 98.2 84 20 117/92 (100) 96 11/27/19 16:00 98.1 97 20 113/62 (79) 96 Intake and Output 11/27/19 11/28/19 19:00 07:00 Intake Total 755 ml Balance 755 ml Intake Oral 700 ml IV Total 55 ml # Voids 1 2 Laboratory Tests 11/27/19 16:00: Urine Color Kristin, Urine Appearance Very cloudy, Urine pH 6.5, Urine Specific [place] 1.010, Urine Protein 2+H, Urine Glucose (UA) Negative, Urine Ketones Negative, Urine Blood 3+H, Urine Nitrite PositiveH, Urine Bilirubin Negative, Urine Ictotest Negative, Urine Urobilinogen Normal, Urine Leukocyte Esterase 3+H , Urine RBC 15-20H, Urine WBC TntcH, Urine Squamous Epithelial Cells ManyH, Urine Bacteria ManyH 11/28/19 04:00: White Blood Count 16.6H, Red Blood Count 4.14L, Hemoglobin 12.5, Hematocrit 36.9L, Mean Corpuscular Volume 89, Mean Corpuscular Hemoglobin 30.2, Mean Corpuscular Hemoglobin Concent 33.8, Red Cell Distribution Width 14.7, Platelet Count 352, Mean Platelet Volume 5.6L, Neutrophils (%) (Auto) 46.3, Lymphocytes ( %) (Auto) 35.6, Monocytes (%) (Auto) 7.2, Eosinophils (%) (Auto) 9.2H, Basophils (%) (Auto) 1.6, Sodium Level 137, Potassium Level 4.9, Chloride Level 101, Carbon Dioxide Level 24, Anion Gap 12, Blood Urea Nitrogen 22H, Creatinine 1.0, Estimat Glomerular Filtration Rate 56.0, Glucose Level 89, Calcium Level 9.8 Height (Feet): 5 Height (Inches): 3.00 Weight (Pounds): 166 General Appearance: lethargic EENT: normal ENT inspection Neck: normal alignment Cardiovascular: normal rate, regular rhythm Respiratory/Chest: no respiratory distress, no accessory muscle use Extremities: normal inspection Skin: normal pigmentation Trevor Cabrera ChimAintaPatricia BUCKNER November 28, 2019 13:10
[2019-11-28 16:00] VITALS: BP 142/78
[2019-11-28] MEDS: Micafungin 100 MG in NS 110 ML IVPB SCH (17:31)
--- NOTE | 2019-11-28 19:33 | Surgery Progress Note ---
Surgery Progress Note Subjective Additional Comments no acute events Objective Last 24 Hour Vital Signs Date Time Temp Pulse Resp B/P (MAP) Pulse Ox O2 Delivery O2 Flow Rate FiO2 11/28/19 16:00 98.1 88 20 142/78 (99) 97 11/28/19 12:00 98.3 92 20 137/89 (105) 98 11/28/19 09:00 Nasal Cannula 2.0 11/28/19 08:00 98.0 96 20 140/86 (104) 96 11/28/19 04:00 98.0 102 20 137/82 (100) 93 11/28/19 00:00 98.2 92 20 124/75 (91) 96 11/27/19 21:19 Nasal Cannula 2.0 11/27/19 20:00 98.2 84 20 117/92 (100) 96 I&O Intake and Output 11/27/19 11/28/19 19:00 07:00 Intake Total 755 ml Balance 755 ml Intake Oral 700 ml IV Total 55 ml # Voids 1 2 Dressing: other Wound: other Drains: other Cardiovascular: RSR Respiratory: decreased breath sounds Abdomen: soft, present bowel sounds Extremities: no cyanosis Laboratory Tests Test 11/28/19 04:00 White Blood Count 16.6 K/UL (4.8-10.8) H Red Blood Count 4.14 M/UL (4.20-5.40) L Hemoglobin 12.5 G/DL (12.0-16.0) Hematocrit 36.9 % (37.0-47.0) L Mean Corpuscular Volume 89 FL (80-99) Mean Corpuscular Hemoglobin 30.2 PG (27.0-31.0) Mean Corpuscular Hemoglobin Concent 33.8 G/DL (32.0-36.0) Red Cell Distribution Width 14.7 % (11.6-14.8) Platelet Count 352 K/UL (150-450) Mean Platelet Volume 5.6 FL (6.5-10.1) L Neutrophils (%) (Auto) 46.3 % (45.0-75.0) Lymphocytes (%) (Auto) 35.6 % (20.0-45.0) Monocytes (%) (Auto) 7.2 % (1.0-10.0) Eosinophils (%) (Auto) 9.2 % (0.0-3.0) H Basophils (%) (Auto) 1.6 % (0.0-2.0) Sodium Level 137 MMOL/L (136-145) Potassium Level 4.9 MMOL/L (3.5-5.1) Chloride Level 101 MMOL/L (98-107) Carbon Dioxide Level 24 MMOL/L (21-32) Anion Gap 12 mmol/L (5-15) Blood Urea Nitrogen 22 mg/dL (7-18) H Creatinine 1.0 MG/DL (0.55-1.30) Estimat Glomerular Filtration Rate 56.0 mL/min (>60) Glucose Level 89 MG/DL (74-106) Calcium Level 9.8 MG/DL (8.5-10.1) Plan Problems: (1) Hypoxia Assessment & Plan: supplemental O2 monitor closely Patchy opacities throughout the lungs, increased compared to prior exam. (2) UTI (urinary tract infection) (3) Suspected 2019 novel coronavirus infection (4) Pneumonia due to COVID-19 virus Assessment & Plan: The heart is borderline enlarged. There are bilateral interstitial opacities diffusely. No definite focal airspace consolidation. The pleural spaces are clear. Impression: Borderline cardiomegaly. Bilateral interstitial disease. This is nonspecific, could indicate infiltrates, edema, among other possibilities on Non rebreather can desaturate Slightly improved but persistent and still extensive bilateral infiltrates (5) Fever (6) Anemia (7) Confusion (8) Diabetes (9) Renal failure (10) Malnutrition Assessment & Plan: DAILY ESTIMATED NEEDS: Needs based on Wound, DM/ 53kg abw 25-30 kcals/kg 5021-4439 total kcals 1.25-1.5 g protein/kg 66-79 g total protein 25-30 mL/kg 4304-8970 total fluid mLs NUTRITION DIAGNOSIS: * Increased kcal/prot intake needs R/T wound healing as evidenced by admitted w/ DTPI wound @ L ischium, non-blanching erythema at cleft of buttocks. * Altered nutrition related lab values R/T diabetes as evidenced by elev POC glu (174, 102, 151, 123, now improved), on NISS. (INACTIVE) CURRENT DIET:CCHO med liquify puree NTL -> pureed w/ thin + Glucerna BID PO DIET RECOMMENDATIONS: CCHO med/ texture per NIGHT GUARD ADDITIONAL RECOMMENDATIONS: * Per SNF: HT=61" CO=440etp * Wound healing: add MVI x 1, Vit C 500mg QD, SYED BID * Monitor BGs, need to resume NISS- now w improved BGs * Texture downgrade for chewing deficit as per RN now on liquify puree/ NTL -> PUREED W/ THIN (11/21) * Monitor for continued improved intake (now eating 100% per EMR) (11) HTN (hypertension) (12) CVA (cerebral vascular accident) (13) Decubitus skin ulcer Assessment & Plan: Pt presented on admission with DTPI L ischium. Base of wound is purple, indurated. An area of hyperpigmentation noted distally but in close to wound bed. Non-blanching erythema cleft of buttocks. Hyperpigmentation from previous wound noted to R ischium. Within area of hyperpigmentation an area of non-blanchable erythema noted. No other skin concerns noted. fortunately DTI improving with close care and monitoring nutritional improvement necessary still as abl now 2.3 cont diet push intake will monitor Tx.Plan: Apply Moisture Barrier Paste to Sacrum. Cover with Optifoam drsg. Change every 3 days and prn. Apply Moisture Barrier Paste to R and L Ischium. Cover each area with Optifoam drsg. Change every 3 days and prn. Apply Cavilon Skin Barrier to both heels. Cover each heel with Optifoam drsg. Change every 7 days and prn. Reposition at least every 2hours or as tolerated. Off-load heels with Pillow. DAILY ESTIMATED NEEDS: Needs based on Wound, DM/ 53kg abw 25-30 kcals/kg 7146-2025 total kcals 1.25-1.5 g protein/kg 66-79 g total protein 25-30 mL/kg 3575-6375 total fluid mLs NUTRITION DIAGNOSIS: * Increased kcal/prot intake needs R/T wound healing as evidenced by admitted w/ DTPI wound @ L ischium, non-blanching erythema at cleft of buttocks. * Altered nutrition related lab values R/T diabetes as evidenced by elev POC glu (174, 102, 151, 123), on NISS. CURRENT DIET:REGULAR PO DIET RECOMMENDATIONS: CCHO med/ texture as tolerated or per NIGHT GUARD ADDITIONAL RECOMMENDATIONS: * Per SNF: HT=61" LI=[id number] * Wound healing: add MVI x 1, Vit C 500mg QD add Syed BID * Texture downgrade for chewing deficit as per RN -> consider pureed * Glucerna x 1 with variable intake (220kcal/10g prot each) Humble Sewell November 28, 2019 19:33
[2019-11-28 20:00] VITALS: BP 116/92
[2019-11-28] MEDS: Miralax 17gm pkt ORAL SCH ×2 (21:00→21:06)
--- NOTE | 2019-11-28 23:37 | Psych Consult Progress Note ---
Psychiatry Progress Note Psychiatry Progress Note Medications Current Medications Medications (Trade) Dose Ordered Sig/Maryam Route PRN Reason Start Time Stop Time Status Last Admin Dose Admin Acetaminophen (Tylenol) 650 mg Q4H PRN ORAL MILD PAIN/TEMP >100.5 11/19/19 17:15 12/19/19 17:14 11/22/19 16:59 Ascorbic Acid (Vitamin C) 500 mg DAILY ORAL 11/17/19 09:00 12/08/19 08:59 11/28/19 08:36 Aspirin (Ecotrin) 81 mg DAILY ORAL 11/17/19 09:00 12/20/19 08:59 11/28/19 08:36 Aztreonam 1 gm/ Dextrose 55 ml @ 110 mls/hr Q8HR IVPB 11/27/19 15:00 12/04/19 14:59 11/28/19 21:07 Dextrose (Dextrose 50%) 25 ml Q30M PRN IV Hypoglycemia 11/16/19 16:45 02/02/20 10:44 Dextrose (Dextrose 50%) 50 ml Q30M PRN IV Hypoglycemia 11/16/19 16:45 02/02/20 10:44 Diphenhydramine HCl (Benadryl) 50 mg Q6H PRN ORAL Itching 11/20/19 13:55 12/20/19 13:54 11/20/19 23:49 Docusate Sodium (Colace) 100 mg TIDPRN PRN ORAL Constipation 11/16/19 16:35 12/16/19 16:34 Haloperidol Lactate (Haldol) 5 mg Q6H PRN IM Agitation 11/20/19 15:45 01/04/20 15:44 Heparin Sodium (Porcine) (Heparin 5000 units/ml) 5,000 units EVERY 12 HOURS SUBQ 11/16/19 21:00 12/27/19 20:59 11/28/19 21:07 Lactulose (Cephulac) 10 gm THREE TIMES A DAY ORAL 11/16/19 18:00 12/13/19 12:59 11/28/19 17:31 Linezolid (Zyvox) 600 mg EVERY 12 HOURS ORAL 11/28/19 13:00 12/03/19 12:59 11/28/19 21:07 Micafungin Sodium 100 mg/Sodium Chloride 110 ml @ 110 mls/hr Q24H IVPB 11/27/19 18:00 12/04/19 17:59 11/28/19 17:31 Multivitamins (Multivitamins) 1 tab DAILY ORAL 11/17/19 09:00 12/08/19 08:59 11/28/19 08:36 Polyethylene Glycol (Miralax) 17 gm BEDTIME ORAL 11/16/19 21:00 12/13/19 20:59 11/27/19 20:37 Neurological/Psychiatric: Reports: anxiety, depressed, emotional problems Allergies: Coded Allergies: PIPERACILLIN (Verified Allergy, Unknown, Rash, 11/27/19) SULFAMETHOXAZOLE (Verified Allergy, Unknown, 11/03/19) TAZOBACTAM (Verified Allergy, Unknown, Rash, 11/27/19) TRIMETHOPRIM (Verified Allergy, Unknown, 11/03/19) Objective Data Height (Feet): 5 Height (Inches): 3.00 Weight (Pounds): 166 General Appearance: alert, confused, agitated Assessment/Plan Status: unchanged Assessment/Plan: ASSESSMENT: Stable. PLAN: 1. We will continue p.r.n. medication. 2. Discussed with the nurse. Anu Hubbard MD November 28, 2019 23:37
[2019-11-29] VITALS: BP 132/63
[2019-11-29 04:00] VITALS: BP 139/86
[2019-11-29 06:53] LABS: ANION GAP 14 mmol/L (5-15); BLOOD UREA NITROGEN 21 mg/dL (7-18); CALCIUM 9.4 MG/DL (8.5-10.1); CARBON DIOXIDE 22 MMOL/L (21-32); CHLORIDE 104 MMOL/L (98-107); POTASSIUM 4.3 MMOL/L (3.5-5.1); SODIUM 140 MMOL/L (136-145)
[2019-11-29 07:08] LABS: BASOPHILS % (AUTO) 1.9 % (0.0-2.0); EOSINOPHILS % (AUTO) 10.9 % (0.0-3.0); HEMATOCRIT 37.8 % (37.0-47.0); HEMOGLOBIN 11.6 G/DL (12.0-16.0); LYMPHOCYTES % (AUTO) 35.6 % (20.0-45.0); MEAN CORPUSCULAR VOLUME 96 FL (80-99); MONOCYTES % (AUTO) 7.4 % (1.0-10.0); NEUTROPHILS % (AUTO) 44.3 % (45.0-75.0); PLATELET COUNT 384 K/UL (150-450); RED BLOOD COUNT 3.94 M/UL (4.20-5.40); RED CELL DISTRIBUTION WIDTH 16.7 % (11.6-14.8)
[2019-11-29] MEDS: Aztreonam Inj 1 GM in D5W 55 ML IVPB SCH ×3 (07:08→22:42)
[2019-11-29 08:00] VITALS: BP 120/86
--- NOTE | 2019-11-29 09:37 | General Progress Note ---
Assessment/Plan Problem List: (1) Malnutrition ICD Codes: E46 - Unspecified protein-calorie malnutrition SNOMED: 23197536 (2) Anemia ICD Codes: D64.9 - Anemia, unspecified SNOMED: 547427163 (3) Fever ICD Codes: R50.9 - Fever, unspecified SNOMED: 467334380 (4) CVA (cerebral vascular accident) ICD Codes: I63.9 - Cerebral infarction, unspecified SNOMED: 164406810 (5) HTN (hypertension) ICD Codes: I10 - Essential (primary) hypertension SNOMED: 50458154 (6) Diabetes ICD Codes: E11.9 - Type 2 diabetes mellitus without complications SNOMED: 93036241 (7) Renal failure ICD Codes: N19 - Unspecified kidney failure SNOMED: 06481748 (8) Confusion ICD Codes: R41.0 - Disorientation, unspecified SNOMED: 073541487 (9) Hypoxia ICD Codes: R09.02 - Hypoxemia SNOMED: 878474434 (10) Suspected 2019 novel coronavirus infection ICD Codes: R68.89 - Other general symptoms and signs SNOMED: 107211863 (11) UTI (urinary tract infection) ICD Codes: N39.0 - Urinary tract infection, site not specified SNOMED: 04976869 Status: unchanged Assessment/Plan: o2 pulm tx abx bp bs control cbc bmp am Subjective Constitutional: Reports: weakness Allergies: Coded Allergies: PIPERACILLIN (Verified Allergy, Unknown, Rash, 11/27/19) SULFAMETHOXAZOLE (Verified Allergy, Unknown, 11/03/19) TAZOBACTAM (Verified Allergy, Unknown, Rash, 11/27/19) TRIMETHOPRIM (Verified Allergy, Unknown, 11/03/19) All Systems: reviewed and negative except above Subjective o2 nc calm in bed Objective Last 24 Hour Vital Signs Date Time Temp Pulse Resp B/P (MAP) Pulse Ox O2 Delivery O2 Flow Rate FiO2 11/29/19 04:00 97.0 97 20 139/86 (103) 98 11/29/19 00:00 97.5 111 20 132/63 (86) 95 11/28/19 21:00 Nasal Cannula 2.0 11/28/19 20:11 97 Nasal Cannula 2.0 28 11/28/19 20:00 98.1 111 20 116/92 (100) 97 11/28/19 16:00 98.1 88 20 142/78 (99) 97 11/28/19 12:00 98.3 92 20 137/89 (105) 98 Intake and Output 11/28/19 11/29/19 19:00 07:00 Intake Total 765 ml 110 ml Balance 765 ml 110 ml Intake Oral 600 ml IV Total 165 ml 110 ml # Voids 2 # Bowel Movements 2 2 Laboratory Tests 11/29/19 04:00: White Blood Count 12.0H, Red Blood Count 3.94L, Hemoglobin 11.6L, Hematocrit 37.8, Mean Corpuscular Volume 96, Mean Corpuscular Hemoglobin 29.3, Mean Corpuscular Hemoglobin Concent 30.6L, Red Cell Distribution Width 16.7H, Platelet Count 384, Mean Platelet Volume 6.0L, Neutrophils (%) (Auto) 44.3L, Lymphocytes (%) (Auto) 35.6, Monocytes (%) (Auto) 7.4, Eosinophils (%) (Auto) 10.9H, Basophils (%) (Auto) 1.9, Sodium Level 140, Potassium Level 4.3, Chloride Level 104, Carbon Dioxide Level 22, Anion Gap 14, Blood Urea Nitrogen 21H, Creatinine 1.0, Estimat Glomerular Filtration Rate 56.0, Glucose Level 106 , Calcium Level 9.4 Height (Feet): 5 Height (Inches): 3.00 Weight (Pounds): 166 General Appearance: lethargic EENT: normal ENT inspection Neck: normal alignment Cardiovascular: normal rate, regular rhythm Respiratory/Chest: no respiratory distress, no accessory muscle use Extremities: normal inspection Skin: normal pigmentation Trevor Cabrera DO November 29, 2019 09:37
--- NOTE | 2019-11-29 09:44 | General Progress Note ---
Assessment/Plan Problem List: (1) Electrolyte imbalance ICD Codes: E87.8 - Other disorders of electrolyte and fluid balance, not elsewhere classified SNOMED: 468004843 (2) Decubitus skin ulcer ICD Codes: L89.90 - Pressure ulcer of unspecified site, unspecified stage SNOMED: 672630127 (3) HTN (hypertension) ICD Codes: I10 - Essential (primary) hypertension SNOMED: 18980769 (4) CVA (cerebral vascular accident) ICD Codes: I63.9 - Cerebral infarction, unspecified SNOMED: 735393938 (5) Malnutrition ICD Codes: E46 - Unspecified protein-calorie malnutrition SNOMED: 27182074 (6) Diabetes ICD Codes: E11.9 - Type 2 diabetes mellitus without complications SNOMED: 57889744 (7) Anemia ICD Codes: D64.9 - Anemia, unspecified SNOMED: 580110301 (8) Pneumonia due to COVID-19 virus ICD Codes: U07.1 - COVID-19; J12.89 - Other viral pneumonia SNOMED: 915564595, 142909661 (9) UTI (urinary tract infection) ICD Codes: N39.0 - Urinary tract infection, site not specified SNOMED: 24615328 Status: unchanged Assessment/Plan: bowel regimen tyroid labs>>> reviewed monitor bowel movements will fu Subjective ROS Limited/Unobtainable: No Allergies: Coded Allergies: PIPERACILLIN (Verified Allergy, Unknown, Rash, 11/27/19) SULFAMETHOXAZOLE (Verified Allergy, Unknown, 11/03/19) TAZOBACTAM (Verified Allergy, Unknown, Rash, 11/27/19) TRIMETHOPRIM (Verified Allergy, Unknown, 11/03/19) Objective Last 24 Hour Vital Signs Date Time Temp Pulse Resp B/P (MAP) Pulse Ox O2 Delivery O2 Flow Rate FiO2 11/29/19 04:00 97.0 97 20 139/86 (103) 98 11/29/19 00:00 97.5 111 20 132/63 (86) 95 11/28/19 21:00 Nasal Cannula 2.0 11/28/19 20:11 97 Nasal Cannula 2.0 28 11/28/19 20:00 98.1 111 20 116/92 (100) 97 11/28/19 16:00 98.1 88 20 142/78 (99) 97 11/28/19 12:00 98.3 92 20 137/89 (105) 98 Intake and Output 11/28/19 11/29/19 19:00 07:00 Intake Total 765 ml 110 ml Balance 765 ml 110 ml Intake Oral 600 ml IV Total 165 ml 110 ml # Voids 2 # Bowel Movements 2 2 Laboratory Tests 11/29/19 04:00: White Blood Count 12.0H, Red Blood Count 3.94L, Hemoglobin 11.6L, Hematocrit 37.8, Mean Corpuscular Volume 96, Mean Corpuscular Hemoglobin 29.3, Mean Corpuscular Hemoglobin Concent 30.6L, Red Cell Distribution Width 16.7H, Platelet Count 384, Mean Platelet Volume 6.0L, Neutrophils (%) (Auto) 44.3L, Lymphocytes (%) (Auto) 35.6, Monocytes (%) (Auto) 7.4, Eosinophils (%) (Auto) 10.9H, Basophils (%) (Auto) 1.9, Sodium Level 140, Potassium Level 4.3, Chloride Level 104, Carbon Dioxide Level 22, Anion Gap 14, Blood Urea Nitrogen 21H, Creatinine 1.0, Estimat Glomerular Filtration Rate 56.0, Glucose Level 106 , Calcium Level 9.4 Height (Feet): 5 Height (Inches): 3.00 Weight (Pounds): 166 General Appearance: no apparent distress EENT: normal ENT inspection Neck: supple Cardiovascular: normal rate Respiratory/Chest: decreased breath sounds Abdomen: non tender, soft Extremities: non-tender Luke Noe MD November 29, 2019 09:44
[2019-11-29] MEDS: Lactulose 10gm/15ml UDC ORAL SCH ×3 (10:01→18:17)
[2019-11-29] MEDS: Aspirin EC 81mg tab ORAL SCH (10:02)
[2019-11-29] MEDS: Heparin 5000 units/ml inj SUBQ SCH ×2 (10:03→21:06)
[2019-11-29] MEDS: Ascorbic Acid 500mg tab ORAL SCH (10:03)
--- NOTE | 2019-11-29 11:43 | Pulmonology Progress Note ---
Subjective ROS Limited/Unobtainable: No Interval Events: Now on 2L/min O2; none new Constitutional: Reports: no symptoms HEENT: Repors: no symptoms Respiratory: Reports: no symptoms Cardiovascular: Reports: no symptoms Gastrointestinal/Abdominal: Reports: no symptoms Allergies: Coded Allergies: PIPERACILLIN (Verified Allergy, Unknown, Rash, 11/27/19) SULFAMETHOXAZOLE (Verified Allergy, Unknown, 11/03/19) TAZOBACTAM (Verified Allergy, Unknown, Rash, 11/27/19) TRIMETHOPRIM (Verified Allergy, Unknown, 11/03/19) All Systems: reviewed and negative except above Objective Last 24 Hour Vital Signs Date Time Temp Pulse Resp B/P (MAP) Pulse Ox O2 Delivery O2 Flow Rate FiO2 11/29/19 08:00 98.5 108 20 120/86 (97) 95 11/29/19 04:00 97.0 97 20 139/86 (103) 98 11/29/19 00:00 97.5 111 20 132/63 (86) 95 11/28/19 21:00 Nasal Cannula 2.0 11/28/19 20:11 97 Nasal Cannula 2.0 28 11/28/19 20:00 98.1 111 20 116/92 (100) 97 11/28/19 16:00 98.1 88 20 142/78 (99) 97 11/28/19 12:00 98.3 92 20 137/89 (105) 98 Intake and Output 11/28/19 11/29/19 19:00 07:00 Intake Total 765 ml 110 ml Balance 765 ml 110 ml Intake Oral 600 ml IV Total 165 ml 110 ml # Voids 2 # Bowel Movements 2 2 General Appearance: no acute distress HEENT: mucous membranes moist Respiratory/Chest: chest wall non-tender, decreased breath sounds Cardiovascular: normal peripheral pulses Abdomen: normal bowel sounds Extremities: no cyanosis Neurologic/Psychiatric: alert, responsive Microbiology Date/Time Source Procedure Growth Status 11/27/19 13:55 Nasopharynx Coronavirus COVID-19 PCR ([facility]ESSA) - Final Complete 11/27/19 16:00 Urine,Clean Catch Urine Culture - Preliminary Gram Negative Robbin Resulted Laboratory Tests 11/29/19 04:00: White Blood Count 12.0H, Red Blood Count 3.94L, Hemoglobin 11.6L, Hematocrit 37.8, Mean Corpuscular Volume 96, Mean Corpuscular Hemoglobin 29.3, Mean Corpuscular Hemoglobin Concent 30.6L, Red Cell Distribution Width 16.7H, Platelet Count 384, Mean Platelet Volume 6.0L, Neutrophils (%) (Auto) 44.3L, Lymphocytes (%) (Auto) 35.6, Monocytes (%) (Auto) 7.4, Eosinophils (%) (Auto) 10.9H, Basophils (%) (Auto) 1.9, Sodium Level 140, Potassium Level 4.3, Chloride Level 104, Carbon Dioxide Level 22, Anion Gap 14, Blood Urea Nitrogen 21H, Creatinine 1.0, Estimat Glomerular Filtration Rate 56.0, Glucose Level 106 , Calcium Level 9.4 Current Medications Medications (Trade) Dose Ordered Sig/Maryam Route PRN Reason Start Time Stop Time Status Last Admin Dose Admin Acetaminophen (Tylenol) 650 mg Q4H PRN ORAL MILD PAIN/TEMP >100.5 11/19/19 17:15 12/19/19 17:14 11/22/19 16:59 Ascorbic Acid (Vitamin C) 500 mg DAILY ORAL 11/17/19 09:00 12/08/19 08:59 11/29/19 10:03 Aspirin (Ecotrin) 81 mg DAILY ORAL 11/17/19 09:00 12/20/19 08:59 11/29/19 10:02 Aztreonam 1 gm/ Dextrose 55 ml @ 110 mls/hr Q8HR IVPB 11/27/19 15:00 12/04/19 14:59 11/29/19 07:08 Dextrose (Dextrose 50%) 25 ml Q30M PRN IV Hypoglycemia 11/16/19 16:45 02/02/20 10:44 Dextrose (Dextrose 50%) 50 ml Q30M PRN IV Hypoglycemia 11/16/19 16:45 02/02/20 10:44 Diphenhydramine HCl (Benadryl) 50 mg Q6H PRN ORAL Itching 11/20/19 13:55 12/20/19 13:54 11/20/19 23:49 Docusate Sodium (Colace) 100 mg TIDPRN PRN ORAL Constipation 11/16/19 16:35 12/16/19 16:34 Haloperidol Lactate (Haldol) 5 mg Q6H PRN IM Agitation 11/20/19 15:45 01/04/20 15:44 Heparin Sodium (Porcine) (Heparin 5000 units/ml) 5,000 units EVERY 12 HOURS SUBQ 11/16/19 21:00 12/27/19 20:59 11/29/19 10:03 Lactulose (Cephulac) 10 gm THREE TIMES A DAY ORAL 11/16/19 18:00 12/13/19 12:59 11/29/19 10:01 Linezolid (Zyvox) 600 mg EVERY 12 HOURS ORAL 11/28/19 13:00 12/03/19 12:59 11/29/19 10:03 Micafungin Sodium 100 mg/Sodium Chloride 110 ml @ 110 mls/hr Q24H IVPB 11/27/19 18:00 12/04/19 17:59 11/28/19 17:31 Multivitamins (Multivitamins) 1 tab DAILY ORAL 11/17/19 09:00 12/08/19 08:59 11/29/19 10:01 Polyethylene Glycol (Miralax) 17 gm BEDTIME ORAL 11/16/19 21:00 12/13/19 20:59 11/27/19 20:37 Assessment/Plan Assessment/Plan IMPRESSION: 1. UTI. 2. Hypoxemia. Improving; now on 2L/min 3. Hypertension. 4. Diabetes mellitus. 5. Previous CVA. 6. Cognitive impairment. 7. skilled nursing resident. 8. Bactrim allergy. 9. COVID 19 positive DISCUSSION: Continue oxygen and pulmonary hygiene. 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 SaO2 95% on 2L/min [facility] med surg Follow up CXR is better Mara Arellano Omar Syed MD November 29, 2019 11:43
[2019-11-29 12:00] VITALS: BP 126/88
--- NOTE | 2019-11-29 13:05 | Nephrology Progress Note ---
Assessment/Plan Problem List: (1) Renal failure (2) Electrolyte imbalance (3) Pneumonia due to COVID-19 virus (4) UTI (urinary tract infection) (5) Diabetes Assessment Renal parameters suggest dehydration and free water deficit, and also effect of Lasix use in the past Hypernatremia, Azotemia, high uric acid COVID positive pneumonia UTI Diabetes mellitus Hypertension History of CVA Allergy to Bactrim [facility] resident Plan Potassium supplement as needed Discontinue current potassium order since potassium is 4.9 today Previously D5W as needed for hypernatremia Continue per current treatment plan Abnormal electrolytes improving Monitor electrolytes and renal parameters Continue per consultants Per orders Positive for COVID-19 test Subjective ROS Limited/Unobtainable: No Constitutional: Reports: malaise, weakness Objective Objective Last 24 Hour Vital Signs Date Time Temp Pulse Resp B/P (MAP) Pulse Ox O2 Delivery O2 Flow Rate FiO2 11/29/19 12:00 98.2 93 20 126/88 (101) 97 11/29/19 09:00 Nasal Cannula 2.0 11/29/19 08:00 98.5 108 20 120/86 (97) 95 11/29/19 04:00 97.0 97 20 139/86 (103) 98 11/29/19 00:00 97.5 111 20 132/63 (86) 95 11/28/19 21:00 Nasal Cannula 2.0 11/28/19 20:11 97 Nasal Cannula 2.0 28 11/28/19 20:00 98.1 111 20 116/92 (100) 97 11/28/19 16:00 98.1 88 20 142/78 (99) 97 Intake and Output 11/28/19 11/29/19 19:00 07:00 Intake Total 765 ml 110 ml Balance 765 ml 110 ml Intake Oral 600 ml IV Total 165 ml 110 ml # Voids 2 # Bowel Movements 2 2 Laboratory Tests 11/29/19 04:00: White Blood Count 12.0H, Red Blood Count 3.94L, Hemoglobin 11.6L, Hematocrit 37.8, Mean Corpuscular Volume 96, Mean Corpuscular Hemoglobin 29.3, Mean Corpuscular Hemoglobin Concent 30.6L, Red Cell Distribution Width 16.7H, Platelet Count 384, Mean Platelet Volume 6.0L, Neutrophils (%) (Auto) 44.3L, Lymphocytes (%) (Auto) 35.6, Monocytes (%) (Auto) 7.4, Eosinophils (%) (Auto) 10.9H, Basophils (%) (Auto) 1.9, Sodium Level 140, Potassium Level 4.3, Chloride Level 104, Carbon Dioxide Level 22, Anion Gap 14, Blood Urea Nitrogen 21H, Creatinine 1.0, Estimat Glomerular Filtration Rate 56.0, Glucose Level 106 , Calcium Level 9.4 Height (Feet): 5 Height (Inches): 3.00 Weight (Pounds): 166 General Appearance: no apparent distress Objective No change Wisam Love MD November 29, 2019 13:05
--- NOTE | 2019-11-29 13:39 | Infectious Diseases Prog Note ---
Assessment/Plan Assessment/Plan Assessment: Sepsis Fever, recurrent; SP Acute hypoxic respiratory failure- s/p simple mask, sp NRB, now on 2l NC Pnuemonia- 2ry to COVID19- still positive (latest 11/26) --1st repeat negative 11/24; 2nd repeat positive -11/28 CXR: Hazy alveolar infiltrates unchanged. -11/25 CXR: Unchanged bilateral right greater than left diffuse infiltrates. The heart is borderline enlarged. The pleural spaces are clear. -11/22 CXR: Patchy opacities throughout the lungs, increased compared to prior exam. -11/19 CXR: Slightly improved but persistent and still extensive bilateral infiltrates, since prior exam of 3 days earlier -11/16 CXR: Diffuse bilateral airspace opacities are slightly improved. -11/13 CXR: Unchanged, over 2 days, findings as above. -11/08 CXR: Interval worsening bilateral airspace opacities, worse in the right lung. -11/05 CXR: Slight worsening of bilateral right greater than left interstitial and airspace opacities, over 3 days. Most likely pneumonia but pulmonary edema also a possibility -11/02 CXR: Borderline cardiomegaly. Bilateral interstitial disease. This is nonspecific, could indicate infiltrates, edema, among other possibilities SARS-COV2 PCR + -Influenza sc neg -Ferritin 180 (11/19), 243 (11/17),338 (11/13)<568 (11/08)<- 841 (11/06) -CRP 5 (11/19), 6.7 (11/17)< 12 (11/13)< 7.9(11/10)<-11.2 (11/08) <- 7.1 (11/06) -Tspot neg Mild leukocytosis, recurrent; improving -11/26 wbc olivia, nit +, leuk +3; ucx >100k GNR Bcx p -11/20 u/a wb 40-60, nit neg, leuk +3; ucx Neg -11/18 Bcx neg -11/13 Bcx Neg Drug rash 2ry to Zosyn; SP UTI -11/20 UA 40-60WBC but cx ng at 48hrs -11/10 u/a wbc olivia, nit neg, leuk +3; ucx 10-20k VRE (S amp) -u/a wbc tnct, nit neg, leuk +3; ucx >100k E.coli (hernandes S), >100k P.mirabilis ( R. Ceftriaxone, bactrim) Elevated LFTs, SP Dm2 HTN CVA SNF resident ([facility]) Plan: -Empiric Zyvox #2 given prior hx of VRE and recurrent UTI now - Empiric Aztreonam and Micafungin #3 pending repeat cultures -Will not start Plaquenil as not recommended by IDSA and NIH guidelines -11/20 SP Zyvox #8, SOlumedrol 60mg IV x1 (drug allergy) -11/18 SP ZOsyn #6- ?allergic reaction -11/11 SP Cefepime #8 -11/07 SP Azithromycin #5 -11/03 SP Ceftriaxone #2 -f/u cx -Monitor CBC/CMP, temperaturse -Monitor inflammatory markers, CXR -f/u CDiff, sp cx, Bcx x2, ucx -COVID isolation- still Positive Thank you for consulting [facility]. Will continue to follow along wiht you. Discussed with RN Subjective Allergies: Coded Allergies: PIPERACILLIN (Verified Allergy, Unknown, Rash, 11/27/19) SULFAMETHOXAZOLE (Verified Allergy, Unknown, 11/03/19) TAZOBACTAM (Verified Allergy, Unknown, Rash, 11/27/19) TRIMETHOPRIM (Verified Allergy, Unknown, 11/03/19) Subjective afebrile at 2l NC wbc improving Objective Vital Signs Last 24 Hour Vital Signs Date Time Temp Pulse Resp B/P (MAP) Pulse Ox O2 Delivery O2 Flow Rate FiO2 11/29/19 12:00 98.2 93 20 126/88 (101) 97 11/29/19 09:00 Nasal Cannula 2.0 11/29/19 08:00 98.5 108 20 120/86 (97) 95 11/29/19 04:00 97.0 97 20 139/86 (103) 98 11/29/19 00:00 97.5 111 20 132/63 (86) 95 11/28/19 21:00 Nasal Cannula 2.0 11/28/19 20:11 97 Nasal Cannula 2.0 28 11/28/19 20:00 98.1 111 20 116/92 (100) 97 11/28/19 16:00 98.1 88 20 142/78 (99) 97 Height (Feet): 5 Height (Inches): 3.00 Weight (Pounds): 166 Objective General Appearance: no acute distress HEENT: mucous membranes moist Respiratory/Chest: chest wall non-tender, decreased breath sounds Cardiovascular: normal peripheral pulses Abdomen: normal bowel sounds Extremities: no cyanosis Skin: erythematous maculopapular rash trunk, b/l arms, neck, face Microbiology Date/Time Source Procedure Growth Status 11/27/19 13:55 Nasopharynx Coronavirus COVID-19 PCR ([facility]) - Final Complete 11/27/19 16:00 Urine,Clean Catch Urine Culture - Preliminary Gram Negative Robbin Resulted Laboratory Tests Test 11/29/19 04:00 White Blood Count 12.0 K/UL (4.8-10.8) H Red Blood Count 3.94 M/UL (4.20-5.40) L Hemoglobin 11.6 G/DL (12.0-16.0) L Hematocrit 37.8 % (37.0-47.0) Mean Corpuscular Volume 96 FL (80-99) Mean Corpuscular Hemoglobin 29.3 PG (27.0-31.0) Mean Corpuscular Hemoglobin Concent 30.6 G/DL (32.0-36.0) L Red Cell Distribution Width 16.7 % (11.6-14.8) H Platelet Count 384 K/UL (150-450) Mean Platelet Volume 6.0 FL (6.5-10.1) L Neutrophils (%) (Auto) 44.3 % (45.0-75.0) L Lymphocytes (%) (Auto) 35.6 % (20.0-45.0) Monocytes (%) (Auto) 7.4 % (1.0-10.0) Eosinophils (%) (Auto) 10.9 % (0.0-3.0) H Basophils (%) (Auto) 1.9 % (0.0-2.0) Sodium Level 140 MMOL/L (136-145) Potassium Level 4.3 MMOL/L (3.5-5.1) Chloride Level 104 MMOL/L (98-107) Carbon Dioxide Level 22 MMOL/L (21-32) Anion Gap 14 mmol/L (5-15) Blood Urea Nitrogen 21 mg/dL (7-18) H Creatinine 1.0 MG/DL (0.55-1.30) Estimat Glomerular Filtration Rate 56.0 mL/min (>60) Glucose Level 106 MG/DL (74-106) Calcium Level 9.4 MG/DL (8.5-10.1) Current Medications Medications (Trade) Dose Ordered Sig/Maryam Route PRN Reason Start Time Stop Time Status Last Admin Dose Admin Acetaminophen (Tylenol) 650 mg Q4H PRN ORAL MILD PAIN/TEMP >100.5 11/19/19 17:15 12/19/19 17:14 11/22/19 16:59 Ascorbic Acid (Vitamin C) 500 mg DAILY ORAL 11/17/19 09:00 12/08/19 08:59 11/29/19 10:03 Aspirin (Ecotrin) 81 mg DAILY ORAL 11/17/19 09:00 12/20/19 08:59 11/29/19 10:02 Aztreonam 1 gm/ Dextrose 55 ml @ 110 mls/hr Q8HR IVPB 11/27/19 15:00 12/04/19 14:59 11/29/19 13:09 Dextrose (Dextrose 50%) 25 ml Q30M PRN IV Hypoglycemia 11/16/19 16:45 02/02/20 10:44 Dextrose (Dextrose 50%) 50 ml Q30M PRN IV Hypoglycemia 11/16/19 16:45 02/02/20 10:44 Diphenhydramine HCl (Benadryl) 50 mg Q6H PRN ORAL Itching 11/20/19 13:55 12/20/19 13:54 11/20/19 23:49 Docusate Sodium (Colace) 100 mg TIDPRN PRN ORAL Constipation 11/16/19 16:35 12/16/19 16:34 Haloperidol Lactate (Haldol) 5 mg Q6H PRN IM Agitation 11/20/19 15:45 01/04/20 15:44 Heparin Sodium (Porcine) (Heparin 5000 units/ml) 5,000 units EVERY 12 HOURS SUBQ 11/16/19 21:00 12/27/19 20:59 11/29/19 10:03 Lactulose (Cephulac) 10 gm THREE TIMES A DAY ORAL 11/16/19 18:00 12/13/19 12:59 11/29/19 13:09 Linezolid (Zyvox) 600 mg EVERY 12 HOURS ORAL 11/28/19 13:00 12/03/19 12:59 11/29/19 10:03 Micafungin Sodium 100 mg/Sodium Chloride 110 ml @ 110 mls/hr Q24H IVPB 11/27/19 18:00 12/04/19 17:59 11/28/19 17:31 Multivitamins (Multivitamins) 1 tab DAILY ORAL 11/17/19 09:00 12/08/19 08:59 11/29/19 10:01 Polyethylene Glycol (Miralax) 17 gm BEDTIME ORAL 11/16/19 21:00 12/13/19 20:59 11/27/19 20:37 Jenna Briseno M.D. November 29, 2019 13:39
--- NOTE | 2019-11-29 13:54 | Surgery Progress Note ---
Surgery Progress Note Subjective Additional Comments labs noted comfortale no n/v Objective Last 24 Hour Vital Signs Date Time Temp Pulse Resp B/P (MAP) Pulse Ox O2 Delivery O2 Flow Rate FiO2 11/29/19 12:00 98.2 93 20 126/88 (101) 97 11/29/19 09:00 Nasal Cannula 2.0 11/29/19 08:00 98.5 108 20 120/86 (97) 95 11/29/19 04:00 97.0 97 20 139/86 (103) 98 11/29/19 00:00 97.5 111 20 132/63 (86) 95 11/28/19 21:00 Nasal Cannula 2.0 11/28/19 20:11 97 Nasal Cannula 2.0 28 11/28/19 20:00 98.1 111 20 116/92 (100) 97 11/28/19 16:00 98.1 88 20 142/78 (99) 97 I&O Intake and Output 11/28/19 11/29/19 19:00 07:00 Intake Total 765 ml 110 ml Balance 765 ml 110 ml Intake Oral 600 ml IV Total 165 ml 110 ml # Voids 2 # Bowel Movements 2 2 Dressing: other Wound: other Drains: other Cardiovascular: RSR Respiratory: decreased breath sounds Abdomen: soft, non-tender, present bowel sounds Extremities: no cyanosis Laboratory Tests Test 11/29/19 04:00 White Blood Count 12.0 K/UL (4.8-10.8) H Red Blood Count 3.94 M/UL (4.20-5.40) L Hemoglobin 11.6 G/DL (12.0-16.0) L Hematocrit 37.8 % (37.0-47.0) Mean Corpuscular Volume 96 FL (80-99) Mean Corpuscular Hemoglobin 29.3 PG (27.0-31.0) Mean Corpuscular Hemoglobin Concent 30.6 G/DL (32.0-36.0) L Red Cell Distribution Width 16.7 % (11.6-14.8) H Platelet Count 384 K/UL (150-450) Mean Platelet Volume 6.0 FL (6.5-10.1) L Neutrophils (%) (Auto) 44.3 % (45.0-75.0) L Lymphocytes (%) (Auto) 35.6 % (20.0-45.0) Monocytes (%) (Auto) 7.4 % (1.0-10.0) Eosinophils (%) (Auto) 10.9 % (0.0-3.0) H Basophils (%) (Auto) 1.9 % (0.0-2.0) Sodium Level 140 MMOL/L (136-145) Potassium Level 4.3 MMOL/L (3.5-5.1) Chloride Level 104 MMOL/L (98-107) Carbon Dioxide Level 22 MMOL/L (21-32) Anion Gap 14 mmol/L (5-15) Blood Urea Nitrogen 21 mg/dL (7-18) H Creatinine 1.0 MG/DL (0.55-1.30) Estimat Glomerular Filtration Rate 56.0 mL/min (>60) Glucose Level 106 MG/DL (74-106) Calcium Level 9.4 MG/DL (8.5-10.1) Plan Problems: (1) Hypoxia Assessment & Plan: supplemental O2 monitor closely Patchy opacities throughout the lungs, increased compared to prior exam. (2) UTI (urinary tract infection) (3) Suspected 2019 novel coronavirus infection (4) Pneumonia due to COVID-19 virus Assessment & Plan: The heart is borderline enlarged. There are bilateral interstitial opacities diffusely. No definite focal airspace consolidation. The pleural spaces are clear. Impression: Borderline cardiomegaly. Bilateral interstitial disease. This is nonspecific, could indicate infiltrates, edema, among other possibilities on Non rebreather can desaturate Slightly improved but persistent and still extensive bilateral infiltrates (5) Fever (6) Anemia (7) Confusion (8) Diabetes (9) Renal failure (10) Malnutrition Assessment & Plan: DAILY ESTIMATED NEEDS: Needs based on Wound, DM/ 53kg abw 25-30 kcals/kg 9596-5964 total kcals 1.25-1.5 g protein/kg 66-79 g total protein 25-30 mL/kg 4561-3346 total fluid mLs NUTRITION DIAGNOSIS: * Increased kcal/prot intake needs R/T wound healing as evidenced by admitted w/ DTPI wound @ L ischium, non-blanching erythema at cleft of buttocks. * Altered nutrition related lab values R/T diabetes as evidenced by elev POC glu (174, 102, 151, 123, now improved), on NISS. (INACTIVE) CURRENT DIET:CCHO med liquify puree NTL -> pureed w/ thin + Glucerna BID PO DIET RECOMMENDATIONS: CCHO med/ texture per BDC MANAGER ADDITIONAL RECOMMENDATIONS: * Per SNF: HT=61" [id number] * Wound healing: add MVI x 1, Vit C 500mg QD, SYED BID * Monitor BGs, need to resume NISS- now w improved BGs * Texture downgrade for chewing deficit as per RN now on liquify puree/ NTL -> PUREED W/ THIN (11/21) * Monitor for continued improved intake (now eating 100% per EMR) (11) HTN (hypertension) (12) CVA (cerebral vascular accident) (13) Decubitus skin ulcer Assessment & Plan: Pt presented on admission with DTPI L ischium. Base of wound is purple, indurated. An area of hyperpigmentation noted distally but in close to wound bed. Non-blanching erythema cleft of buttocks. Hyperpigmentation from previous wound noted to R ischium. Within area of hyperpigmentation an area of non-blanchable erythema noted. No other skin concerns noted. fortunately DTI improving with close care and monitoring nutritional improvement necessary still as abl now 2.3 cont diet push intake will monitor Tx.Plan: Apply Moisture Barrier Paste to Sacrum. Cover with Optifoam drsg. Change every 3 days and prn. Apply Moisture Barrier Paste to R and L Ischium. Cover each area with Optifoam drsg. Change every 3 days and prn. Apply Cavilon Skin Barrier to both heels. Cover each heel with Optifoam drsg. Change every 7 days and prn. Reposition at least every 2hours or as tolerated. Off-load heels with Pillow. DAILY ESTIMATED NEEDS: Needs based on Wound, DM/ 53kg abw 25-30 kcals/kg 2093-5020 total kcals 1.25-1.5 g protein/kg 66-79 g total protein 25-30 mL/kg 2783-4408 total fluid mLs NUTRITION DIAGNOSIS: * Increased kcal/prot intake needs R/T wound healing as evidenced by admitted w/ DTPI wound @ L ischium, non-blanching erythema at cleft of buttocks. * Altered nutrition related lab values R/T diabetes as evidenced by elev POC glu (174, 102, 151, 123), on NISS. CURRENT DIET:REGULAR PO DIET RECOMMENDATIONS: CCHO med/ texture as tolerated or per BDC MANAGER ADDITIONAL RECOMMENDATIONS: * Per SNF: HT=61" PH=[id number] * Wound healing: add MVI x 1, Vit C 500mg QD add Syed BID * Texture downgrade for chewing deficit as per RN -> consider pureed * Glucerna x 1 with variable intake (220kcal/10g prot each) Humlbe Sewell November 29, 2019 13:54
[2019-11-29 16:00] VITALS: BP 123/77
--- NOTE | 2019-11-29 16:30 | Diagnostic Imaging Report ---
Procedure: XRAY Chest 1v Reason for study: Reason For Exam: COUGH Comparison films: 11/26/2019. FINDINGS: A single one view chest is obtained. Vascularity is normal. Hazy alveolar infiltrates unchanged. Cardiac and mediastinal silhouette are within normal limits. CP angles are sharp. The bony thorax appear unremarkable. IMPRESSION: NO SIGNIFICANT CHANGE COMPARED TO PREVIOUS EXAM.
[2019-11-29] MEDS: Micafungin 100 MG in NS 110 ML IVPB SCH (18:17)
[2019-11-29] MEDS ORDERED: ASCORBIC ACID500 MG ORAL (18:48)
[2019-11-29] MEDS ORDERED: DOCUSATE SODIU100 MG ORAL (18:49)
[2019-11-29] MEDS ORDERED: DIPHENHYDRAMINE25 M1 ORAL (18:49)
[2019-11-29] MEDS ORDERED: HALOPERIDOL5 MG/1 ML IM (18:50)
[2019-11-29] MEDS ORDERED: LACTULOSE10 GM/153 PO (18:51)
[2019-11-29] MEDS ORDERED: HEPARIN SO5000 UNIT2 SUBQ (18:51)
[2019-11-29] MEDS ORDERED: LEVAQUIN500 MG ORAL (18:53)
[2019-11-29] MEDS ORDERED: MIRALAX17 G2 ORAL (18:53)
[2019-11-29] MEDS ORDERED: ZYVOX600 MG ORAL (18:54)
[2019-11-29 20:00] VITALS: BP 130/89
[2019-11-29] MEDS: Miralax 17gm pkt ORAL SCH (21:05)
--- NOTE | 2019-11-29 23:52 | Psych Consult Progress Note ---
Psychiatry Progress Note Psychiatry Progress Note Neurological/Psychiatric: Reports: anxiety, depressed, emotional problems Allergies: Coded Allergies: PIPERACILLIN (Verified Allergy, Unknown, Rash, 11/27/19) SULFAMETHOXAZOLE (Verified Allergy, Unknown, 11/03/19) TAZOBACTAM (Verified Allergy, Unknown, Rash, 11/27/19) TRIMETHOPRIM (Verified Allergy, Unknown, 11/03/19) Objective Data Height (Feet): 5 Height (Inches): 3.00 Weight (Pounds): 166 Additional Comments: alert and disoriented to situation and date. Mood is anxious. Affect is flat. Thought process is concrete. Thought content, no suicidal or homicidal ideation. Cognition is impaired. Insight and judgment are impaired. Assessment/Plan Status: unchanged Assessment/Plan: ASSESSMENT: Stable. PLAN: 1. We will continue p.r.n. medication. 2. Discussed with the nurse. Anu Hubbard MD November 29, 2019 23:52
--- NOTE | 2019-12-02 15:25 | Discharge Summary ---
Discharge Summary Discharge Summary _ DATE OF ADMISSION: 11/03/2019 DATE OF DISCHARGE: 11/29/2019 DISCHARGED BY: Dr. Cabrera REASON FOR ADMISSION: 64 years old female, resident of [facility] facility, with past medical history of diabetes mellitus, hypertension, CVA, presented for evaluation of fever and cough for 1 day. Patient had fever and nonproductive cough . Vital signs revealed fever and hypoxia. Laboratory work-up revealed no leukocytosis , stable hemoglobin,hematocrit and platelet count. Lactic acid 0.9. Urinalysis revealed +3 protein ,+3 leukocyte esterase ,pyuria and moderate bacteria , consistent with urinary tract infection. Stable electrolytes. BUN 18, creatinine 1.0. Troponin 0.002, pro BNP 29. EKG revealed sinus tachycardia, no acute ischemic changes. Chest x-ray demonstrated borderline cardiomegaly and bilateral interstitial disease. Patient required 100% nonrebreathing mask. ABG was stable ON 100% nonrebreathing mask. Patient was swabbed for CoVID 19. In the emergency department patient pancultured, started on empiric antibiotics and admitted to stepdown unit isolation room for further management. CONSULTANTS: pulmonary Dr. Bradley ID specialist Dr. Briseno GI specialist Dr. Noe cast iron dipper Dr. Love finance intern/oncologist surgery Dr. Sewell psychiatrist Dr. Cazares [facility] COURSE: Patient admitted to stepdown unit. Supplemental oxygen provided and titrated to keep pulse oximetry above 92%. Pulmonary toilet provided. Patient was followed up with CXR and ABG Patient was able to be weaned later to simple mask, and then to oxygen via nasal cannula. Patient started on empiric antibiotic as per ID specialist recommendation. Urine vulture revealed Enterococcus faecalis. Nasal swab for influenza was negative. Blood cultures were negative. SARS-CoV-2 by PCR on was detected. Repeated SARS-CoV-2 by PCR on was not detected and detected again on . Repeated urine culture revealed Enterococcus faecalis. Patient undergone treatment for a left urine culture revealed E. coli ESBL. Leukocytosis trending down , prior to discharge WBC 12. Patient to continue antibiotic at the facility to complete the course as per ID specialist recommendation. Ferritin and CRP were closely monitored. CRP trending down. Patient had been in the hospital for over 14 days with treatment, no fevers for more than 72 hours without any antipyretic . Per recent [facility] recommendations, patient was clear for discharge to [facility] facility with isolation precaution. Renal parameters and electrolytes were closely monitored. Patient noted to have acute kidney injury. patietn hydrated. Electrolytes corrected as needed. Nephrotoxins were avoided. Protein supplements provided as per registered diet technician recommendation. Patient presented with deep tissue pressure injury left ischium. Wound care provided as per surgeon recommendation. Continue wound care at the facility. LFT were closely monitored , trended down to normal . Patient clinically stabilized and was ready for transfer back to [facility] facility for continuation of care. FINAL DIAGNOSES: Confirmed COVID-19 infection Acute hypoxemic respiratory failure requiring nonrebreathing mask, resolved Pneumonia due to COVID-19 virus UTI Acute kidney injury due to dehydration -resolved Electrolyte imbalance Hypertension Diabetes mellitus History of CVA Transaminitis- resolved Protein calorie malnutrition Decubitus ulcer skin ulcer , present on admission DISCHARGE MEDICATIONS See Medication Reconciliation list. DISCHARGE INSTRUCTIONS: Patient was discharged to the [facility] facility. Follow up with medical doctor at the facility. I have been assigned to dictate discharge summary for this account. I was not involved in the patient's management. Laura Quinones NP December 02, 2019 15:25
== END 2019-11-29 22:30 | DRG 720 ==
LOC: EDBD 22:12 → EMR 22:15 → 2W 23:28 → EDBEDREQ 11-04 05:22 → 4E 11-16 16:34
DX: A41.89 Other specified sepsis (principal); U07.1 COVID-19; J12.89 Other viral pneumonia; J96.01 Acute respiratory failure with hypoxia; E46 Unspecified protein-calorie malnutrition; N39.0 Urinary tract infection, site not specified; Z68.29 Body mass index [BMI] 29.0-29.9, adult; I12.9 Hypertensive chronic kidney disease with stage 1 through stage 4 chronic kidney disease, or unspecified chronic kidney disease; E11.22 Type 2 diabetes mellitus with diabetic chronic kidney disease; N18.9 Chronic kidney disease, unspecified; N17.9 Acute kidney failure, unspecified; Z86.73 Personal history of transient ischemic attack (TIA), and cerebral infarction without residual deficits; D64.9 Anemia, unspecified; G31.84 Mild cognitive impairment of uncertain or unknown etiology; L89.156 Pressure-induced deep tissue damage of sacral region; L27.0 Generalized skin eruption due to drugs and medicaments taken internally; T36.0X5A Adverse effect of penicillins, initial encounter; Y92.230 Patient room in hospital as the place of occurrence of the external cause; R94.5 Abnormal results of liver function studies; F41.9 Anxiety disorder, unspecified; F32.9 Major depressive disorder, single episode, unspecified; E86.0 Dehydration
CPT/HCPCS: 36415; 36600; 71045; 74018; 80048; 80053; 80061; 80076; 81001; 81003; 82270; 82728; 82803; 82962; 83036; 83605; 83615; 83690; 83735; 83880; 84100; 84300; 84439; 84443; 84484; 84550; 85007; 85025; 85379; 85384; 86140; 86710; 87040; 87070; 87081; 87086; 87181; 87205; 87635; 92610; 96365; 96368; 99291; J1815; J8499

== ENCOUNTER 2020-05-14 16:24 | Inpatient (IN) | payer OTHER ==
[~2020-05-14] VITALS: Ht 154.9 cm; Wt 61.0 kg
[~2020-05-14 16:24] MED LIST: ASCORBIC ACID500 MG ORAL; ASPIR 8181 MG ORAL; DIPHENHYDRAMINE25 M1 ORAL; DOCUSATE SODIU100 MG ORAL; HALOPERIDOL5 MG/1 ML IM; HEPARIN SO5000 UNIT2 SUBQ; LACTULOSE10 GM/153 PO; LEVAQUIN500 MG ORAL; MIRALAX17 G2 ORAL; MULTIVITAMINS1 EA13 ORAL; ZYVOX600 MG ORAL
[2020-05-14 16:30] VITALS: BP 110/69
--- NOTE | 2020-05-14 16:30 | NUR ---
ED Nurse Note: Pt CONNOR Mosley from [facility] c/o abdominal pain/ distention, nause and vomiting onset today. No episode of active vomiting at this time. Pt AAOx1, verbally responsive but is confused. Breathing even and unlabored. No SOB, on room air. Afebrile. Pt placed on school lunch monitor. ERMD at bedside.
[2020-05-14] MEDS ORDERED: ZOFRAN4 M3 ORAL (16:32)
[2020-05-14] MEDS ORDERED: ACETAMINOPHEN120 MG PO (16:32)
[2020-05-14] MEDS ORDERED: Omnipaque-300 100ml vial INJ PRN (17:15)
--- NOTE | 2020-05-14 17:30 | NUR ---
ED Nurse Note: IV line established. Blood specimen collected and sent to lab.
[2020-05-14 17:58] LABS: HEMATOCRIT 42.5 % (37.0-47.0); HEMOGLOBIN 13.7 G/DL (12.0-16.0); MEAN CORPUSCULAR VOLUME 95 FL (80-99); PLATELET COUNT 485 K/UL (150-450); RED BLOOD COUNT 4.48 M/UL (4.20-5.40); RED CELL DISTRIBUTION WIDTH 14.3 % (11.6-14.8); WHITE BLOOD COUNT 18.1 K/UL (4.8-10.8)
[2020-05-14 18:03] LABS: CALCIUM 9.4 MG/DL (8.5-10.1); CREATININE 1.5 MG/DL (0.55-1.30); POTASSIUM 3.5 MMOL/L (3.5-5.1)
[2020-05-14 18:07] LABS: ALBUMIN 2.8 G/DL (3.4-5.0); ALBUMIN/GLOBULIN RATIO 0.4 (1.0-2.7); BILIRUBIN,TOTAL 0.6 MG/DL (0.2-1.0)
--- NOTE | 2020-05-14 18:40 | NUR ---
ED Nurse Note: Pt returned from CT not in any distress.
--- NOTE | 2020-05-14 19:04 | Diagnostic Imaging Report ---
EXAM: CT Abdomen and Pelvis With Intravenous Contrast CLINICAL HISTORY: ABD PAIN TECHNIQUE: Axial computed tomography images of the abdomen and pelvis with intravenous contrast. CTDI is 8.60 mGy and DLP is 477.30 mGy-cm. One or more of the following dose reduction techniques were used: automated exposure control, adjustment of the mA and/or kV according to patient size, use of iterative reconstruction technique. COMPARISON: No relevant prior studies available. FINDINGS: Lung bases: Bibasilar atelectasis and or scarring. Heart: Calcifications of the coronary arteries and aortic valve leaflets. ABDOMEN: Liver: Unremarkable. Gallbladder and bile ducts: Distended gallbladder with adjacent stranding. Findings may represent early acute cholecystitis. Pancreas: Unremarkable. Spleen: Unremarkable. Adrenals: Unremarkable. Kidneys and ureters: Staghorn calculus within the right kidney. No hydronephrosis. Stomach and bowel: Markedly distended stomach with fluid and gas to the level of the proximal duodenum no obstructing lesion identified. PELVIS: Appendix: Appendix is unremarkable. Bladder: Unremarkable. Reproductive: See below. ABDOMEN and PELVIS: Intraperitoneal space: Unremarkable. Bones/joints: Calcifications of the uterus which may represent degenerative fibroids. No acute fracture. No dislocation. Soft tissues: Unremarkable. Vasculature: Vascular calcifications. Lymph nodes: Unremarkable. IMPRESSION: 1. Distended gallbladder with adjacent stranding. Findings may represent early acute cholecystitis. 2. Markedly distended stomach with fluid and gas to the level of the proximal duodenum no obstructing lesion identified. 3. Staghorn calculus within the right kidney. No hydronephrosis.
--- NOTE | 2020-05-14 19:07 | NUR ---
ED Nurse Note: MAJOR - DAUGHTER
--- NOTE | 2020-05-14 19:10 | NUR ---
HAND-OFF: Report given to Dunia RAMOS.
[2020-05-14 19:30] VITALS: BP 112/70
--- NOTE | 2020-05-14 19:52 | NUR ---
ED Nurse Note: 17F jayda bullock NG inserted in R nares, placed at 50cm martinez, taped in place, pt tolerated well. continuous suction of brown liquid present
[2020-05-14 20:29] LABS: APPEARANCE,URINE SLIGHTLY CLOUDY; BILIRUBIN, URINE NEGATIVE (NEGATIVE); COLOR,URINE YELLOW; GLUCOSE, URINE (UA) NEGATIVE (NEGATIVE); KETONES,URINE NEGATIVE (NEGATIVE); LEUKOCYTE ESTERASE ,URINE 3+ (NEGATIVE); NITRITE,URINE NEGATIVE (NEGATIVE); PH,URINE 6.5 (4.5-8.0); PROTEIN,URINE 2+ (NEGATIVE); UROBILINOGEN,URINE 1 MG/DL (0.0-1.0)
--- NOTE | 2020-05-14 22:20 | NUR ---
TRANSFER TO FLOOR: Patient transferred to as ordered, per Dr Cabrera. Report given to RACHEL Gurrola. Belongings and medications given to . Family and or S/O informed of transfer.
--- NOTE | 2020-05-14 22:38 | NUR ---
NURSE NOTES: Report received from ED RN Dunia. Patient is noted to be awake and alert x 0-1. Patient makes eye contact when Galileo RN states name. However, patient is nonverbal and unable to answer Galileo RAMOS questions. Patient is noted to be on room, does not appear to be in respiratory distress at this time. Patient has an oxygen saturation of 97 % on room air. Temperature of 99.0, pulse of 92 beats per minute, respirations of 20 respirations a minute, and a blood pressure of 119/75. Patient is noted to have an NG tube inserted at approximally 52 cm draining brown fluid. Patient is noted to have distended abdomen, bowel sounds present, firm to touch, patient does not show signs of pain during palpitation. Patient is noted to have no open skin. Patient is noted to be in bilateral soft wrist restraints. Peripheral pules present, patient able to move extremities, and no edema is noted. Was endorsed to Galileo RAMOS that patient was placed in restraints due to patient pulling at medical lines. Patient is noted to have hyperpigmentation on left buttocks. Patient is noted to have a bony sacrum, optifoam put in place for preventative measures. The patient also appears to have old scratch campbell on buttocks as well. Patient is noted to have right forearm 20 kade IV access. Was endorsed to Galileo RAMOS that patient is a full code, POLST is noted to be in chart. Was endorsed to Galileo RAMOS that CRE, VRE, MRSA swabs obtained, results currently pending. Was endorsed to Galileo RAMOS that patient had a CT of abdomen with contrast, results were noted by Galileo RAMOS. It is noted that patient has no belongings. Packet for living facility was sent with patient. Galileo RAMOS will contact Doctor Cabrera for admitting orders. Bed is locked, alarmed, and in lowest position. Call light in reach. Will continue to follow plan of care.
--- NOTE | 2020-05-14 22:54 | NUR ---
NURSE NOTES: abdomen noted to be 97.7 cm
--- NOTE | 2020-05-14 23:00 | NUR ---
NURSE NOTES: Doctor Cabrera paged for admitting orders. Galileo RAMOS spoke with answering service and was informed that Doctor Cabrera would be paged.
[2020-05-14] MEDS: Aztreonam Inj 0.5 GM in NS 55 ML IVPB SCH (23:26)
[2020-05-14] MEDS ORDERED: Acetaminophen 650 MG SUPP RECTAL PRN (23:30)
[2020-05-14] MEDS ORDERED: Morphine Sulfate 2mg/ml Inj(IV/IM USE ONLY) IVP PRN (23:30)
[2020-05-15] VITALS: BP 125/83
--- NOTE | 2020-05-15 00:20 | Diagnostic Imaging Report ---
EXAM: XR Abdomen, 2 Views CLINICAL HISTORY: PAIN TECHNIQUE: Frontal view of the abdomen/pelvis with upright view of the abdomen. COMPARISON: Abdominal radiographs on 11/14/2019 FINDINGS: Hardware: Enteric tube terminates in the region of the stomach. Abdomen: Nonobstructive bowel gas pattern. No free air. Bones: Normal. Soft tissues: Normal. Lower chest: Normal. Other: Excreted contrast noted within the bladder. Probable stable prominent right-sided staghorn calculus again noted. IMPRESSION: 1. Enteric tube terminates in the region of the stomach. 2. Nonobstructive bowel gas pattern. 3. Probable stable prominent right-sided staghorn calculus again noted.
[2020-05-15] MEDS: D5 1/2NS w/KCl 20mEq 1,000 ML IV SCH ×3 (00:51→21:18)
[2020-05-15 04:00] VITALS: BP 123/75
--- NOTE | 2020-05-15 05:47 | NUR ---
NURSE NOTES: Patient found to have right restraint loose. Patient scratching at buttocks and removed Optifoam. New Scratch martinez noted on right buttocks. Sponge bath given, new Optifoam applied to sacrum and scratch martinez.
[2020-05-15 07:23] LABS: BASOPHILS % (AUTO) 0.7 % (0.0-2.0); EOSINOPHILS % (AUTO) 0.7 % (0.0-3.0); LYMPHOCYTES % (AUTO) 19.5 % (20.0-45.0); MEAN CORPUSCULAR VOLUME 93 FL (80-99); MONOCYTES % (AUTO) 6.4 % (1.0-10.0); NEUTROPHILS % (AUTO) 72.8 % (45.0-75.0); PLATELET COUNT 419 K/UL (150-450); RED BLOOD COUNT 4.19 M/UL (4.20-5.40); RED CELL DISTRIBUTION WIDTH 14.4 % (11.6-14.8); WHITE BLOOD COUNT 13.5 K/UL (4.8-10.8)
--- NOTE | 2020-05-15 07:30 | NUR ---
NURSE NOTES: Patient received from RACHEL Gurrola. Awake in bed, alert and oriented x 1, no SOB, bed in lowest position with alarm on and breaks engaged, on room air, bilateral soft wrist restraints in place as ordered tolerating well, NGT in place on right nares at 52 cm 16 F, no s//sx of discomfort upon assessment, will continue to monitor and proceed with plan of care.
--- NOTE | 2020-05-15 07:31 | NUR ---
NURSE HAND-OFF: Important Events on Shift: patient admission. in stable condition. distended abdomen. NG tube in right nare, intermittent suction, brown liquid. late administration of antibiotic. Patient Status: full code Diet: NPO Pending Orders: none Pending Results/Labs:none Pending MD notification:none Latest Vital Signs: Temperature 98.1 , Pulse 91 , B/P 123 /75 , Respiratory Rate 20 , O2 SAT 97 , Room Air, O2 Flow Rate . Vital Sign Comment: within normal limits Latest Waite Fall Score: 35 Fall Risk: Medium Risk Safety Measures: Call light Within Reach, Bed Alarm Zone 1, Side Rails Side Rails x3, Bed position Low and Locked. Fall Precautions: Yellow Socks Yellow Gown Door Sign Patient Fall Education Report given to Lisbeth RAMOS.
[2020-05-15] MEDS: Aztreonam Inj 0.5 GM in NS 55 ML IVPB SCH ×2 (07:38→14:06)
[2020-05-15 07:45] LABS: ALANINE AMINOTRANSFERASE 38 U/L (12-78); ALBUMIN 2.4 G/DL (3.4-5.0); ALBUMIN/GLOBULIN RATIO 0.4 (1.0-2.7); ALKALINE PHOSPHATASE 111 U/L (46-116); AMYLASE 47 U/L (25-115); ASPARTATE AMINO TRANSFERASE 22 U/L (15-37); BILIRUBIN,TOTAL 0.6 MG/DL (0.2-1.0); BLOOD UREA NITROGEN 40 mg/dL (7-18); CALCIUM 8.9 MG/DL (8.5-10.1); CARBON DIOXIDE 32 MMOL/L (21-32); CHLORIDE 105 MMOL/L (98-107); CREATININE 1.1 MG/DL (0.55-1.30); POTASSIUM 3.4 MMOL/L (3.5-5.1); SODIUM 141 MMOL/L (136-145)
[2020-05-15 08:00] VITALS: BP 127/80
--- NOTE | 2020-05-15 08:28 | NUR ---
RADIOLOGY DEPT., ABDOMEN X-RAY COMPLETED.-P.DYE
--- NOTE | 2020-05-15 08:54 | NUR ---
NURSE NOTES: NGT noted to be out, no bleeding noted. Dr Sewell informed, KUB results sent to MD. Per Dr. Sewell, may hold NG tube insertion for now. Will continue to monitor patient. Stable at this time.
[2020-05-15] MEDS: Pantoprazole Inj IV SCH (09:28)
[2020-05-15] MEDS: Heparin 5000 units/ml inj SUBQ SCH ×2 (09:30→21:19)
[2020-05-15 12:00] VITALS: BP 140/69
--- NOTE | 2020-05-15 12:00 | History and Physical Report ---
DATE OF ADMISSION: 05/15/2020 TIME SEEN: Approximate time is 10 a.m. CONSULTANTS: 1. Luke Noe MD. 2. Humble Cunningham MD. 3. Oz Claudio MD. 4. Pritesh Royal MD. 5. Anu Hubbard MD. CHIEF COMPLAINT: Abdominal pain, confusion. BRIEF HISTORY: This is a 64-year-old female from [facility] presented with increased abdominal pain for two days, slightly confused, came to [place] [facility], diagnosed with the above, as well as right staghorn calculus, cholecystitis and distended abdomen, and admitted to medical floor. Currently, calm in bed, slightly confused. No complaint. REVIEW OF SYSTEMS: No chest pain. Slight short of breath. Slight nausea. No vomiting. No diarrhea. PAST MEDICAL HISTORY: Include CVA, diabetes, renal failure, hypertension, and confusion. PAST SURGICAL HISTORY: Unknown. ALLERGIES: Piperacillin, sulfa, tazobactam, trimethoprim. MEDICATIONS: Include heparin, ciprofloxacin, pantoprazole, metronidazole, Zofran, morphine, and . SOCIAL HISTORY: Unable to obtain secondary to the patient's condition. PHYSICAL EXAMINATION: GENERAL: Calm in bed, slightly confused. No complaint. VITAL SIGNS: Temperature is 98 degrees, pulse 91, respirations 20, blood pressure 127/80. CARDIOVASCULAR: No murmur. LUNGS: Distant and clear. ABDOMEN: Bowel sounds positive. Soft, nontender, nondistended. EXTREMITIES: No cyanosis or edema. NEUROLOGIC: The patient moves all extremities, slightly weak. LABORATORY AND DIAGNOSTIC DATA: Labs at this time show white count 13.5, otherwise CBC is normal. BMP shows potassium 3.4, BUN 40, glucose 134. Albumin 2.4. INR is 1.0. Urinalysis is 3+ leukocyte esterase. ASSESSMENT: 1. Abdominal pain. 2. UTI. 3. Right staghorn calculus. 4. Cholecystitis. 5. Leukocytosis. 6. Abdominal distention. 7. CVA. 8. Diabetes. 9. Hypertension. 10. Renal failure. 11. Malnutrition. 12. Confusion. PLAN: 1. NPO. 2. IV fluid. 3. Dietary followup. 4. Blood pressure and blood sugar control. 5. Resume home medications. 6. Pain control. 7. CBC and BMP in the morning. Trevor Cabrera D.O. DR: MARY JOB#: [id number] CC:
--- NOTE | 2020-05-15 12:55 | Diagnostic Imaging Report ---
Indication: Abdominal pain Technique: One view of the chest Comparison: 05/14/2020 Findings: Right renal collecting system density presumably represents a staghorn calculus demonstrated on prior CT scan and prior abdominal radiographs. Contrast from the prior CT scan is seen within the bladder. There is still some residual opacification of the left renal parenchyma. Nasogastric tube projects at the level of the distal esophagus. The bowel gas pattern is unremarkable. Impression: High position of nasogastric tube. Per discussion with patient's nurse, this has been removed in the interim. No acute process. Findings as noted
--- NOTE | 2020-05-15 14:10 | NUR ---
NURSE NOTES: Dr Cabrera was informed regarding NGT removal by patient, Per MD, okay to keep bilateral soft wrist restraints order for safety/pulling out IV line. Dr. Hubbard consulted.
--- NOTE | 2020-05-15 14:36 | Consultation ---
History of Present Illness General Date patient seen: May 15, 2020 Chief Complaint: Abdominal Pain Present Illness HPI 64 y/o F with hx of CVA, DM2, CKD, HTN, SNF resident ([facility]) presented to ED on 05/14 with abd pain, nausea and confusion Denied CP, SOB, vomiting, diarrhea. Allergies: Coded Allergies: PIPERACILLIN (Verified Allergy, Unknown, Rash, 11/27/19) SULFAMETHOXAZOLE (Verified Allergy, Unknown, 11/03/19) TAZOBACTAM (Verified Allergy, Unknown, Rash, 11/27/19) TRIMETHOPRIM (Verified Allergy, Unknown, 11/03/19) Medication History Scheduled Ascorbic Acid* (Ascorbic Acid*), 500 MG ORAL DAILY, (Reported) Aspirin* (Aspir 81*), 81 MG ORAL DAILY, (Reported) Docusate Sodium* (Docusate Sodium*), 200 MG ORAL DAILY, (Reported) Heparin Sod (Porcine) (Heparin Sodium*), 5,000 UNITS SUBQ EVERY 12 HOURS, (Reported) Lactulose (Lactulose), 10 GM PO TID, (Reported) Levofloxacin* (Levaquin*), 500 MG ORAL DAILY, (Reported) Linezolid* (Zyvox*), 600 MG ORAL EVERY 12 HOURS, (Reported) Multivitamin with Minerals (Multivitamins with Minerals), 1 TAB ORAL DAILY, (Reported) Polyethylene Glycol 3350* (Miralax*), 17 GM ORAL DAILY, (Reported) Scheduled PRN Acetaminophen* (Tylenol*), 650 MG PO Q6HR PRN for Mild Pain/Temp > 100.5, (Reported) Diphenhydramine Hcl* (Diphenhydramine Hcl*), 50 MG ORAL Q6H PRN for Itching, (Reported) Docusate Sodium* (Docusate Sodium*), 100 MG ORAL THREE TIMES A DAY PRN for Constipation, (Reported) Haloperidol Lactate (Haloperidol), 5 MG IM Q6HR PRN for Agitation, (Reported) Ondansetron* (Zofran*), 4 MG ORAL Q8HR PRN for Nausea & Vomiting, (Reported) Patient History Healthcare decision maker N Resuscitation status Advanced Directive on File Patient History Narrative Pmhx: as above Shx: reviewed Fhx: non contributory Review of Systems All Other Systems: negative except mentioned in HPI Physical Exam Physical Exam Narrative GENERAL: Calm in bed, slightly confused. No complaint. CARDIOVASCULAR: No murmur. LUNGS: Distant and clear. ABDOMEN: Bowel sounds positive. Soft, nontender, nondistended. EXTREMITIES: No cyanosis or edema. NEUROLOGIC: The patient moves all extremities, slightly weak. Last 24 Hour Vital Signs Date Time Temp Pulse Resp B/P (MAP) Pulse Ox O2 Delivery O2 Flow Rate FiO2 05/15/20 12:00 98.5 91 20 140/69 (92) 97 05/15/20 09:00 Room Air 05/15/20 08:00 98.1 91 20 127/80 (96) 97 05/15/20 04:00 98.1 91 20 123/75 (91) 97 05/15/20 00:00 98.9 90 22 125/83 (97) 96 05/14/20 22:54 Room Air 05/14/20 22:20 98.6 78 18 118/74 98 Room Air 05/14/20 19:30 98.6 78 18 112/70 98 Room Air 05/14/20 16:30 98.4 124 20 110/69 96 Room Air 05/14/20 16:30 124 20 Room Air 05/14/20 16:25 98.4 124 20 110/69 (83) 96 Room Air Intake and Output 05/14/20 05/15/20 19:00 07:00 Intake Total 200 ml Output Total 100 ml Balance 100 ml Intake IV Total 200 ml Output Gastric Drainage Total 100 ml Laboratory Tests Test 05/14/20 17:30 05/14/20 20:10 05/15/20 05:32 White Blood Count 18.1 K/UL (4.8-10.8) H 13.5 K/UL (4.8-10.8) H Red Blood Count 4.48 M/UL (4.20-5.40) 4.19 M/UL (4.20-5.40) L Hemoglobin 13.7 G/DL (12.0-16.0) 13.0 G/DL (12.0-16.0) Hematocrit 42.5 % (37.0-47.0) 39.0 % (37.0-47.0) Mean Corpuscular Volume 95 FL (80-99) 93 FL (80-99) Mean Corpuscular Hemoglobin 30.5 PG (27.0-31.0) 31.0 PG (27.0-31.0) Mean Corpuscular Hemoglobin Concent 32.1 G/DL (32.0-36.0) 33.4 G/DL (32.0-36.0) Red Cell Distribution Width 14.3 % (11.6-14.8) 14.4 % (11.6-14.8) Platelet Count 485 K/UL (150-450) H 419 K/UL (150-450) Mean Platelet Volume 6.5 FL (6.5-10.1) 6.1 FL (6.5-10.1) L Neutrophils (%) (Auto) % (45.0-75.0) 72.8 % (45.0-75.0) Lymphocytes (%) (Auto) % (20.0-45.0) 19.5 % (20.0-45.0) L Monocytes (%) (Auto) % (1.0-10.0) 6.4 % (1.0-10.0) Eosinophils (%) (Auto) % (0.0-3.0) 0.7 % (0.0-3.0) Basophils (%) (Auto) % (0.0-2.0) 0.7 % (0.0-2.0) Differential Total Cells Counted 100 Neutrophils % (Manual) 83 % (45-75) H Lymphocytes % (Manual) 12 % (20-45) L Monocytes % (Manual) 3 % (1-10) Eosinophils % (Manual) 0 % (0-3) Basophils % (Manual) 2 % (0-2) Band Neutrophils 0 % (0-8) Platelet Estimate Increased H Platelet Morphology Normal Red Blood Cell Morphology Normal Prothrombin Time 11.4 SEC (9.30-11.50) 11.1 SEC (9.30-11.50) Prothromb Time International Ratio 1.0 (0.9-1.1) 1.0 (0.9-1.1) Activated Partial Thromboplast Time 30 SEC (23-33) 29 SEC (23-33) Sodium Level 138 MMOL/L (136-145) 141 MMOL/L (136-145) Potassium Level 3.5 MMOL/L (3.5-5.1) 3.4 MMOL/L (3.5-5.1) L Chloride Level 99 MMOL/L (98-107) 105 MMOL/L (98-107) Carbon Dioxide Level 27 MMOL/L (21-32) 32 MMOL/L (21-32) Anion Gap 12 mmol/L (5-15) Blood Urea Nitrogen 58 mg/dL (7-18) H 40 mg/dL (7-18) H Creatinine 1.5 MG/DL (0.55-1.30) H 1.1 MG/DL (0.55-1.30) Estimat Glomerular Filtration Rate 35.1 mL/min (>60) 50.2 mL/min (>60) Glucose Level 126 MG/DL (74-106) H 134 MG/DL (74-106) H Lactic Acid Level 1.20 mmol/L (0.4-2.0) Calcium Level 9.4 MG/DL (8.5-10.1) 8.9 MG/DL (8.5-10.1) Total Bilirubin 0.6 MG/DL (0.2-1.0) 0.6 MG/DL (0.2-1.0) Aspartate Amino Transf (AST/SGOT) 53 U/L (15-37) H 22 U/L (15-37) Alanine Aminotransferase (ALT/SGPT) 49 U/L (12-78) 38 U/L (12-78) Alkaline Phosphatase 136 U/L (46-116) H 111 U/L (46-116) Troponin I 0.000 ng/mL (0.000-0.056) Total Protein 10.2 G/DL (6.4-8.2) H 8.8 G/DL (6.4-8.2) H Albumin 2.8 G/DL (3.4-5.0) L 2.4 G/DL (3.4-5.0) L Globulin 7.4 g/dL 6.4 g/dL Albumin/Globulin Ratio 0.4 (1.0-2.7) L 0.4 (1.0-2.7) L Lipase 148 U/L (73-393) Urine Color Yellow Urine Appearance Slightly cloudy Urine pH 6.5 (4.5-8.0) Urine Specific [place] 1.010 (1.005-1.035) Urine Protein 2+ (NEGATIVE) H Urine Glucose (UA) Negative (NEGATIVE) Urine Ketones Negative (NEGATIVE) Urine Blood 5+ (NEGATIVE) H Urine Nitrite Negative (NEGATIVE) Urine Bilirubin Negative (NEGATIVE) Urine Urobilinogen 1 MG/DL (0.0-1.0) H Urine Leukocyte Esterase 3+ (NEGATIVE) H Urine RBC 20-30 /HPF (0 - 2) H Urine WBC Tntc /HPF (0 - 2) H Urine Squamous Epithelial Cells Moderate /LPF (NONE/OCC) H Urine Bacteria Many /HPF (NONE) H Erythrocyte Sedimentation Rate 21 MM/HR (0-30) C-Reactive Protein, Quantitative 12.6 mg/dL (0.00-0.90) H Amylase Level 47 U/L (25-115) Microbiology Date/Time Source Procedure Growth Status 05/14/20 19:25 Rectum Received Height (Feet): 5 Height (Inches): 1.00 Weight (Pounds): 143 Medications Current Medications Medications (Trade) Dose Ordered Sig/Maryam Route PRN Reason Start Time Stop Time Status Last Admin Dose Admin Acetaminophen (Tylenol) 650 mg Q4H PRN RECTAL Temp >100.5 05/14/20 23:30 06/13/20 23:29 Aztreonam 0.5 gm/ Sodium Chloride 55 ml @ 110 mls/hr EVERY 8 HOURS IVPB 05/14/20 22:00 05/21/20 21:59 05/15/20 14:06 Ciprofloxacin 200 ml @ 200 mls/hr Q12HR IV 05/15/20 09:00 05/22/20 08:59 05/15/20 09:28 Dextrose (Dextrose 50%) 25 ml Q30M PRN IV Hypoglycemia 05/14/20 23:30 08/12/20 23:29 Dextrose (Dextrose 50%) 50 ml Q30M PRN IV Hypoglycemia 05/14/20 23:30 08/12/20 23:29 Dextrose/ Electrolytes 1,000 ml @ 100 mls/hr Q10H IV 05/15/20 00:30 06/14/20 00:29 05/15/20 10:31 Heparin Sodium (Porcine) (Heparin 5000 units/ml) 5,000 units EVERY 12 HOURS SUBQ 05/15/20 09:30 06/29/20 09:29 10/30/20 09:30 Iohexol (OMNIPAQUE-300 100ml) 100 ml NOW PRN INJ Radiology Procedure 05/14/20 17:15 05/16/20 17:14 Metronidazole 100 ml @ 100 mls/hr Q8HR IVPB 05/15/20 06:00 05/22/20 05:59 05/15/20 13:34 Morphine Sulfate (Morphine Sulfate) 2 mg EVERY 3 HOURS PRN IVP Moderate Pain (Pain Scale 4-6) 05/14/20 23:30 05/21/20 23:29 Ondansetron HCl (Zofran) 4 mg Q6H PRN IVP Nausea & Vomiting 05/14/20 23:30 06/13/20 23:29 Pantoprazole (Protonix) 40 mg DAILY IV 05/15/20 09:00 06/14/20 08:59 05/15/20 09:28 Assessment/Plan Assessment/Plan: Abx: Ciprofloxacin 05/15- Flagyl 05/15- Aztreonam 05/14- Assessment: Sepsis Acute cholecystitis -05/14 CT abd/p w/: Distended gallbladder with adjacent stranding. Findings may represent early acute cholecystitis. Markedly distended stomach with fluid and gas to the level of the proximal duodenum no obstructing lesion identified. Staghorn calculus within the right kidney. No hydronephrosis. Probable UTI -05/14 u/a wbc tnct, nit neg, leuk +3; ucx p Afebrile Leukocytosis, improving CVA DM2 CKD HTN SNF resident ([facility]) Plan: -Continue empiric Aztreonam #2 for acute cholecystitis and awaiting ucx -f/u cx -Monitor CBC/CMP, temperatures -Gen sx f/u -aspiration precautions Thank you for this consultation. Will continue to follow along with you. Jenna Briseno M.D. May 15, 2020 14:36
--- NOTE | 2020-05-15 14:54 | General Progress Note ---
Subjective ROS Limited/Unobtainable: No Allergies: Coded Allergies: PIPERACILLIN (Verified Allergy, Unknown, Rash, 11/27/19) SULFAMETHOXAZOLE (Verified Allergy, Unknown, 11/03/19) TAZOBACTAM (Verified Allergy, Unknown, Rash, 11/27/19) TRIMETHOPRIM (Verified Allergy, Unknown, 11/03/19) Objective Last 24 Hour Vital Signs Date Time Temp Pulse Resp B/P (MAP) Pulse Ox O2 Delivery O2 Flow Rate FiO2 05/15/20 12:00 98.5 91 20 140/69 (92) 97 05/15/20 09:00 Room Air 05/15/20 08:00 98.1 91 20 127/80 (96) 97 05/15/20 04:00 98.1 91 20 123/75 (91) 97 05/15/20 00:00 98.9 90 22 125/83 (97) 96 05/14/20 22:54 Room Air 05/14/20 22:20 98.6 78 18 118/74 98 Room Air 05/14/20 19:30 98.6 78 18 112/70 98 Room Air 05/14/20 16:30 98.4 124 20 110/69 96 Room Air 05/14/20 16:30 124 20 Room Air 05/14/20 16:25 98.4 124 20 110/69 (83) 96 Room Air Intake and Output 05/14/20 05/15/20 19:00 07:00 Intake Total 200 ml Output Total 100 ml Balance 100 ml Intake IV Total 200 ml Output Gastric Drainage Total 100 ml Laboratory Tests 05/14/20 17:30: White Blood Count 18.1H, Red Blood Count 4.48, Hemoglobin 13.7, Hematocrit 42.5, Mean Corpuscular Volume 95, Mean Corpuscular Hemoglobin 30.5, Mean Corpuscular Hemoglobin Concent 32.1, Red Cell Distribution Width 14.3, Platelet Count 485H, Mean Platelet Volume 6.5, Neutrophils (%) (Auto) , Lymphocytes (%) (Auto) , Monocytes (%) (Auto) , Eosinophils (%) (Auto) , Basophils (%) (Auto) , Differential Total Cells Counted 100, Neutrophils % (Manual) 83H, Lymphocytes % (Manual) 12L, Monocytes % (Manual) 3, Eosinophils % (Manual) 0, Basophils % (Manual) 2, Band Neutrophils 0, Platelet Estimate IncreasedH, Platelet Morphology Normal, Red Blood Cell Morphology Normal, Prothrombin Time 11.4, Prothromb Time International Ratio 1.0, Activated Partial Thromboplast Time 30, Sodium Level 138, Potassium Level 3.5, Chloride Level 99, Carbon Dioxide Level 27, Anion Gap 12, Blood Urea Nitrogen 58H, Creatinine 1.5H, Estimat Glomerular Filtration Rate 35.1, Glucose Level 126H, Lactic Acid Level 1.20, Calcium Level 9.4, Total Bilirubin 0.6, Aspartate Amino Transf (AST/SGOT) 53H, Alanine Aminotransferase (ALT/SGPT) 49, Alkaline Phosphatase 136H, Troponin I 0.000, Total Protein 10.2H, Albumin 2.8L, Globulin 7.4, Albumin/Globulin Ratio 0.4L, Lipase 148 05/14/20 20:10: Urine Color Yellow, Urine Appearance Slightly cloudy, Urine pH 6.5, Urine Specific [place] 1.010, Urine Protein 2+H, Urine Glucose (UA) Negative, Urine Ketones Negative, Urine Blood 5+H, Urine Nitrite Negative, Urine Bilirubin Negative, Urine Urobilinogen 1H, Urine Leukocyte Esterase 3+H, Urine RBC 20-30H, Urine WBC TntcH, Urine Squamous Epithelial Cells ModerateH, Urine Bacteria ManyH 05/15/20 05:32: White Blood Count 13.5H, Red Blood Count 4.19L, Hemoglobin 13.0, Hematocrit 39.0, Mean Corpuscular Volume 93, Mean Corpuscular Hemoglobin 31.0, Mean Corpuscular Hemoglobin Concent 33.4, Red Cell Distribution Width 14.4, Platelet Count 419, Mean Platelet Volume 6.1L, Neutrophils (%) (Auto) 72.8, Lymphocytes (%) (Auto) 19.5L, Monocytes (%) (Auto) 6.4, Eosinophils (%) (Auto) 0.7, Basophils (%) (Auto) 0.7, Prothrombin Time 11.1, Prothromb Time International Ratio 1.0, Activated Partial Thromboplast Time 29, Sodium Level 141, Potassium Level 3.4L, Chloride Level 105, Carbon Dioxide Level 32, Blood Urea Nitrogen 40H , Creatinine 1.1, Estimat Glomerular Filtration Rate 50.2, Glucose Level 134H, Calcium Level 8.9, Total Bilirubin 0.6, Aspartate Amino Transf (AST/SGOT) 22, Alanine Aminotransferase (ALT/SGPT) 38, Alkaline Phosphatase 111, Total Protein 8.8H, Albumin 2.4L, Globulin 6.4, Albumin/Globulin Ratio 0.4L, Erythrocyte Sedimentation Rate 21, C-Reactive Protein, Quantitative 12.6H, Amylase Level 47 Height (Feet): 5 Height (Inches): 1.00 Weight (Pounds): 143 General Appearance: alert EENT: normal ENT inspection Neck: supple Cardiovascular: normal rate Respiratory/Chest: decreased breath sounds, rhonchi - right Abdomen: non tender, hypoactive bowel sounds Assessment/Plan Problem List: (1) Kidney calculus ICD Codes: N20.0 - Calculus of kidney SNOMED: 24415540 (2) Abdominal pain ICD Codes: R10.9 - Unspecified abdominal pain SNOMED: 30596779 (3) Confusion ICD Codes: R41.0 - Disorientation, unspecified SNOMED: 512595373 (4) Electrolyte imbalance ICD Codes: E87.8 - Other disorders of electrolyte and fluid balance, not elsewhere classified SNOMED: 484013006 (5) HTN (hypertension) ICD Codes: I10 - Essential (primary) hypertension SNOMED: 33298664 (6) CVA (cerebral vascular accident) ICD Codes: I63.9 - Cerebral infarction, unspecified SNOMED: 046960467 (7) Diabetes ICD Codes: E11.9 - Type 2 diabetes mellitus without complications SNOMED: 34244183 (8) Renal failure ICD Codes: N19 - Unspecified kidney failure SNOMED: 68330234 Assessment/Plan: doubt SBO start clears fu surg recs needs urology eval abx for uti Luke Noe MD May 15, 2020 14:54
[2020-05-15 16:00] VITALS: BP 140/70
--- NOTE | 2020-05-15 16:35 | NUR ---
CASE MANAGEMENT:INITIAL REVIEW 64 YR OLD FEMALE BIBA FROM [facility] CC;ABDOMINAL PAIN SI;CHOLECYSTITIS. 98.6 124 20 118/74 96% ON RA WBC 18.1 PLT 485 BUN 58 CR 1.5 BG 126 ALP 136 APB 2.8 UA+ PROTEIN, BLOOD, UROBILINOGEN, LEUKOCYTE ESTERASE, RBC, WBC, SQUAMOUS EPITH CELLS, BACTERIA ABD/PELVIS CT ~ 1. Distended gallbladder with adjacent stranding. Findings may represent early acute cholecystitis. 2. Markedly distended stomach with fluid and gas to the level of the proximal duodenum no obstructing lesion identified. 3. Staghorn calculus within the right kidney. No hydronephrosis. IS;ZOFRAN IV IVF NS BOLUS ADMITTED TO MED SURG MED SURG STATUS DCP;FROM [facility]
--- NOTE | 2020-05-15 16:59 | Consultation ---
History of Present Illness General Date patient seen: May 15, 2020 Reason for Hospitalization: Abdominal Pain Present Illness HPI 64 year old female presented with complaints of abdominal pain generalized for a few days. no n/v/f/c. labs abnormal. CT with cholecystitis, gastritis, distended abd, ?sbo. admitted for care and management. surgery called to evaluate and assist with care. patient seen, chart reviewed, patient examined. NG ordered and placed in ED but since patient has removed. minimal output since decompression. labs noted. exam as below. patient limited history given condition. Allergies: Coded Allergies: PIPERACILLIN (Verified Allergy, Unknown, Rash, 11/27/19) SULFAMETHOXAZOLE (Verified Allergy, Unknown, 11/03/19) TAZOBACTAM (Verified Allergy, Unknown, Rash, 11/27/19) TRIMETHOPRIM (Verified Allergy, Unknown, 11/03/19) COVID-19 Screening Contact w/high risk pt: No Recent Travel to affected area: No Experienced COVID-19 symptoms?: No Medication History Scheduled Ascorbic Acid* (Ascorbic Acid*), 500 MG ORAL DAILY, (Reported) Aspirin* (Aspir 81*), 81 MG ORAL DAILY, (Reported) Docusate Sodium* (Docusate Sodium*), 200 MG ORAL DAILY, (Reported) Heparin Sod (Porcine) (Heparin Sodium*), 5,000 UNITS SUBQ EVERY 12 HOURS, (Reported) Lactulose (Lactulose), 10 GM PO TID, (Reported) Levofloxacin* (Levaquin*), 500 MG ORAL DAILY, (Reported) Linezolid* (Zyvox*), 600 MG ORAL EVERY 12 HOURS, (Reported) Multivitamin with Minerals (Multivitamins with Minerals), 1 TAB ORAL DAILY, (Reported) Polyethylene Glycol 3350* (Miralax*), 17 GM ORAL DAILY, (Reported) Scheduled PRN Acetaminophen* (Tylenol*), 650 MG PO Q6HR PRN for Mild Pain/Temp > 100.5, (Reported) Diphenhydramine Hcl* (Diphenhydramine Hcl*), 50 MG ORAL Q6H PRN for Itching, (Reported) Docusate Sodium* (Docusate Sodium*), 100 MG ORAL THREE TIMES A DAY PRN for Constipation, (Reported) Haloperidol Lactate (Haloperidol), 5 MG IM Q6HR PRN for Agitation, (Reported) Ondansetron* (Zofran*), 4 MG ORAL Q8HR PRN for Nausea & Vomiting, (Reported) Patient History Limited by: medical condition History Provided By: Patient, Medical Record Healthcare decision maker N Resuscitation status Advanced Directive on File Past Medical/Surgical History Past Medical/Surgical History: (1) Fever (2) Anemia (3) Malnutrition (4) Decubitus skin ulcer (5) Confusion (6) Diabetes (7) Kidney calculus (8) Renal failure (9) Electrolyte imbalance (10) Abdominal pain (11) HTN (hypertension) (12) CVA (cerebral vascular accident) Review of Systems Review of Symptoms General ROS: no weight loss or fever Psychological ROS: no depression or mood changes, no memory loss Ophthalmic ROS: no visual changes or eye irritation ENT ROS: no nasal congestion, hearing loss, dizziness Allergy and Immunology ROS: no allergic symptoms or urticaria Hematological and Lymphatic ROS: no swollen glands, unusual bleeding or bruising Endocrine ROS: no polyuria, polydipsia, weight changes, temperature intolerance Respiratory ROS: no cough, shortness of breath, or wheezing Cardiovascular ROS: no chest pain or dyspnea on exertion Gastrointestinal ROS: + abdominal pain, bright red blood in stool. Musculoskeletal ROS: no myalgias or arthralgias Neurological ROS: no TIA or stroke symptoms Dermatological ROS: no new or changing skin lesions, rashes or pruritis Physical Exam Physical Exam General appearance: alert, cooperative, no distress, appears stated age Head: Normocephalic, without obvious abnormality, atraumatic Eyes: conjunctivae/corneas clear. PERRL, EOM's intact. Fundi benign Throat: Lips, mucosa, and tongue normal. Teeth and gums normal Neck: supple, symmetrical, trachea midline, no adenopathy, thyroid: not enlarged, symmetric, no tenderness/mass/nodules, no carotid bruit and no JVD Lungs: clear to auscultation bilaterally Heart: regular rate and rhythm, S1, S2 normal, no murmur, click, rub or gallop Abdomen: soft, non-tender. Bowel sounds normal. No masses, no organomegaly Extremities: extremities normal, atraumatic, no cyanosis or edema Pulses: 2+ and symmetric Skin: Skin color, texture, turgor normal. No rashes or lesions Neurologic: Grossly normal Last 24 Hour Vital Signs Date Time Temp Pulse Resp B/P (MAP) Pulse Ox O2 Delivery O2 Flow Rate FiO2 05/15/20 16:00 99.0 75 22 140/70 (93) 97 05/15/20 12:00 98.5 91 20 140/69 (92) 97 05/15/20 09:00 Room Air 05/15/20 08:00 98.1 91 20 127/80 (96) 97 05/15/20 04:00 98.1 91 20 123/75 (91) 97 05/15/20 00:00 98.9 90 22 125/83 (97) 96 05/14/20 22:54 Room Air 05/14/20 22:20 98.6 78 18 118/74 98 Room Air 05/14/20 19:30 98.6 78 18 112/70 98 Room Air Intake and Output 05/14/20 05/15/20 19:00 07:00 Intake Total 200 ml Output Total 100 ml Balance 100 ml Intake IV Total 200 ml Output Gastric Drainage Total 100 ml Laboratory Tests Test 05/14/20 17:30 05/14/20 20:10 05/15/20 05:32 White Blood Count 18.1 K/UL (4.8-10.8) H 13.5 K/UL (4.8-10.8) H Red Blood Count 4.48 M/UL (4.20-5.40) 4.19 M/UL (4.20-5.40) L Hemoglobin 13.7 G/DL (12.0-16.0) 13.0 G/DL (12.0-16.0) Hematocrit 42.5 % (37.0-47.0) 39.0 % (37.0-47.0) Mean Corpuscular Volume 95 FL (80-99) 93 FL (80-99) Mean Corpuscular Hemoglobin 30.5 PG (27.0-31.0) 31.0 PG (27.0-31.0) Mean Corpuscular Hemoglobin Concent 32.1 G/DL (32.0-36.0) 33.4 G/DL (32.0-36.0) Red Cell Distribution Width 14.3 % (11.6-14.8) 14.4 % (11.6-14.8) Platelet Count 485 K/UL (150-450) H 419 K/UL (150-450) Mean Platelet Volume 6.5 FL (6.5-10.1) 6.1 FL (6.5-10.1) L Neutrophils (%) (Auto) % (45.0-75.0) 72.8 % (45.0-75.0) Lymphocytes (%) (Auto) % (20.0-45.0) 19.5 % (20.0-45.0) L Monocytes (%) (Auto) % (1.0-10.0) 6.4 % (1.0-10.0) Eosinophils (%) (Auto) % (0.0-3.0) 0.7 % (0.0-3.0) Basophils (%) (Auto) % (0.0-2.0) 0.7 % (0.0-2.0) Differential Total Cells Counted 100 Neutrophils % (Manual) 83 % (45-75) H Lymphocytes % (Manual) 12 % (20-45) L Monocytes % (Manual) 3 % (1-10) Eosinophils % (Manual) 0 % (0-3) Basophils % (Manual) 2 % (0-2) Band Neutrophils 0 % (0-8) Platelet Estimate Increased H Platelet Morphology Normal Red Blood Cell Morphology Normal Prothrombin Time 11.4 SEC (9.30-11.50) 11.1 SEC (9.30-11.50) Prothromb Time International Ratio 1.0 (0.9-1.1) 1.0 (0.9-1.1) Activated Partial Thromboplast Time 30 SEC (23-33) 29 SEC (23-33) Sodium Level 138 MMOL/L (136-145) 141 MMOL/L (136-145) Potassium Level 3.5 MMOL/L (3.5-5.1) 3.4 MMOL/L (3.5-5.1) L Chloride Level 99 MMOL/L (98-107) 105 MMOL/L (98-107) Carbon Dioxide Level 27 MMOL/L (21-32) 32 MMOL/L (21-32) Anion Gap 12 mmol/L (5-15) Blood Urea Nitrogen 58 mg/dL (7-18) H 40 mg/dL (7-18) H Creatinine 1.5 MG/DL (0.55-1.30) H 1.1 MG/DL (0.55-1.30) Estimat Glomerular Filtration Rate 35.1 mL/min (>60) 50.2 mL/min (>60) Glucose Level 126 MG/DL (74-106) H 134 MG/DL (74-106) H Lactic Acid Level 1.20 mmol/L (0.4-2.0) Calcium Level 9.4 MG/DL (8.5-10.1) 8.9 MG/DL (8.5-10.1) Total Bilirubin 0.6 MG/DL (0.2-1.0) 0.6 MG/DL (0.2-1.0) Aspartate Amino Transf (AST/SGOT) 53 U/L (15-37) H 22 U/L (15-37) Alanine Aminotransferase (ALT/SGPT) 49 U/L (12-78) 38 U/L (12-78) Alkaline Phosphatase 136 U/L (46-116) H 111 U/L (46-116) Troponin I 0.000 ng/mL (0.000-0.056) Total Protein 10.2 G/DL (6.4-8.2) H 8.8 G/DL (6.4-8.2) H Albumin 2.8 G/DL (3.4-5.0) L 2.4 G/DL (3.4-5.0) L Globulin 7.4 g/dL 6.4 g/dL Albumin/Globulin Ratio 0.4 (1.0-2.7) L 0.4 (1.0-2.7) L Lipase 148 U/L (73-393) Urine Color Yellow Urine Appearance Slightly cloudy Urine pH 6.5 (4.5-8.0) Urine Specific [place] 1.010 (1.005-1.035) Urine Protein 2+ (NEGATIVE) H Urine Glucose (UA) Negative (NEGATIVE) Urine Ketones Negative (NEGATIVE) Urine Blood 5+ (NEGATIVE) H Urine Nitrite Negative (NEGATIVE) Urine Bilirubin Negative (NEGATIVE) Urine Urobilinogen 1 MG/DL (0.0-1.0) H Urine Leukocyte Esterase 3+ (NEGATIVE) H Urine RBC 20-30 /HPF (0 - 2) H Urine WBC Tntc /HPF (0 - 2) H Urine Squamous Epithelial Cells Moderate /LPF (NONE/OCC) H Urine Bacteria Many /HPF (NONE) H Erythrocyte Sedimentation Rate 21 MM/HR (0-30) C-Reactive Protein, Quantitative 12.6 mg/dL (0.00-0.90) H Amylase Level 47 U/L (25-115) Microbiology Date/Time Source Procedure Growth Status 05/14/20 19:25 Rectum Received Height (Feet): 5 Height (Inches): 1.00 Weight (Pounds): 143 Medications Current Medications Medications (Trade) Dose Ordered Sig/Maryam Route PRN Reason Start Time Stop Time Status Last Admin Dose Admin Acetaminophen (Tylenol) 650 mg Q4H PRN RECTAL Temp >100.5 05/14/20 23:30 06/13/20 23:29 Aztreonam 1 gm/ Dextrose 55 ml @ 110 mls/hr EVERY 8 HOURS IVPB 05/15/20 22:00 05/22/20 21:59 Dextrose (Dextrose 50%) 25 ml Q30M PRN IV Hypoglycemia 05/14/20 23:30 08/12/20 23:29 Dextrose (Dextrose 50%) 50 ml Q30M PRN IV Hypoglycemia 05/14/20 23:30 08/12/20 23:29 Dextrose/ Electrolytes 1,000 ml @ 100 mls/hr Q10H IV 05/15/20 00:30 06/14/20 00:29 05/15/20 10:31 Heparin Sodium (Porcine) (Heparin 5000 units/ml) 5,000 units EVERY 12 HOURS SUBQ 05/15/20 09:30 06/29/20 09:29 05/15/20 09:30 Iohexol (OMNIPAQUE-300 100ml) 100 ml NOW PRN INJ Radiology Procedure 05/14/20 17:15 05/16/20 17:14 Mirtazapine (Remeron) 15 mg BEDTIME ORAL 05/15/20 21:00 08/13/20 20:59 Morphine Sulfate (Morphine Sulfate) 2 mg EVERY 3 HOURS PRN IVP Moderate Pain (Pain Scale 4-6) 05/14/20 23:30 05/21/20 23:29 Ondansetron HCl (Zofran) 4 mg Q6H PRN IVP Nausea & Vomiting 05/14/20 23:30 06/13/20 23:29 Pantoprazole (Protonix) 40 mg DAILY IV 05/15/20 09:00 06/14/20 08:59 05/15/20 09:28 Assessment/Plan Problem List: (1) Confusion ICD Codes: R41.0 - Disorientation, unspecified SNOMED: 868218118 (2) Diabetes ICD Codes: E11.9 - Type 2 diabetes mellitus without complications SNOMED: 25273291 (3) Kidney calculus ICD Codes: N20.0 - Calculus of kidney SNOMED: 68234010 (4) Renal failure ICD Codes: N19 - Unspecified kidney failure SNOMED: 26740780 (5) Electrolyte imbalance ICD Codes: E87.8 - Other disorders of electrolyte and fluid balance, not elsewhere classified SNOMED: 958162686 (6) Abdominal pain Assessment & Plan: 64F with abdominal pain. afebrile, HD Stable labs noted. ng minimal output since placement no pain now and resolved exam benign. abd soft, nt/nd, bs+ recent BM as per RN trial liquid diet iv fluids iv abx trend labs abd US ordered will follow with recs thank youy ABDOMEN: Liver: Unremarkable. Gallbladder and bile ducts: Distended gallbladder with adjacent stranding. Findings may represent early acute cholecystitis. Pancreas: Unremarkable. Spleen: Unremarkable. Adrenals: Unremarkable. Kidneys and ureters: Staghorn calculus within the right kidney. No hydronephrosis. Stomach and bowel: Markedly distended stomach with fluid and gas to the level of the proximal duodenum no obstructing lesion identified. PELVIS: Appendix: Appendix is unremarkable. Bladder: Unremarkable. Reproductive: See below. ABDOMEN and PELVIS: Intraperitoneal space: Unremarkable. Bones/joints: Calcifications of the uterus which may represent degenerative fibroids. No acute fracture. No dislocation. Soft tissues: Unremarkable. Vasculature: Vascular calcifications. Lymph nodes: Unremarkable. IMPRESSION: 1. Distended gallbladder with adjacent stranding. Findings may represent early acute cholecystitis. 2. Markedly distended stomach with fluid and gas to the level of the proximal duodenum no obstructing lesion identified. 3. Staghorn calculus within the right kidney. No hydronephrosis. ICD Codes: R10.9 - Unspecified abdominal pain SNOMED: 02069874 (7) HTN (hypertension) ICD Codes: I10 - Essential (primary) hypertension SNOMED: 41733155 (8) CVA (cerebral vascular accident) ICD Codes: I63.9 - Cerebral infarction, unspecified SNOMED: 236929549 (9) Fever ICD Codes: R50.9 - Fever, unspecified SNOMED: 540554525 (10) Anemia ICD Codes: D64.9 - Anemia, unspecified SNOMED: 372247049 (11) Decubitus skin ulcer ICD Codes: L89.90 - Pressure ulcer of unspecified site, unspecified stage SNOMED: 351443833 (12) Malnutrition ICD Codes: E46 - Unspecified protein-calorie malnutrition SNOMED: 56539944 Humble Sewell May 15, 2020 16:59
--- NOTE | 2020-05-15 19:19 | NUR ---
NURSE HAND-OFF: Important Events on Shift:[safety and comfort, new diet, IV fluids and IV antibiotics] Patient Status: [stable] Diet: [clear liquid, NPO at midnight] Pending Orders: [] Pending Results/Labs:[] Pending MD notification:[] Latest Vital Signs: Temperature 99.0 , Pulse 75 , B/P 140 /70 , Respiratory Rate 22 , O2 SAT 97 , Room Air, O2 Flow Rate . Vital Sign Comment: [] Latest Waite Fall Score: 35 Fall Risk: Medium Risk Safety Measures: Call light Within Reach, Bed Alarm Zone 1, Side Rails Side Rails x2, Bed position Low and Locked. Fall Precautions: Yellow Socks Yellow Gown Door Sign Patient Fall Education Report given to [Laurence RAMOS].
--- NOTE | 2020-05-15 19:30 | NUR ---
NURSE NOTES: Received patient in no apparent distress. A&OX1, confused. IV site patent and intact. Restraint noted on bilateral wrist, radial pulse present, skin intact. Bed in lowest position. Call light within reach. Will continue to monitor.
[2020-05-15 20:00] VITALS: BP 124/79
[2020-05-15] MEDS: Aztreonam 1gm/D5W 55ml IVPB SCH ×2 (21:18)
--- NOTE | 2020-05-15 21:45 | Consultation ---
DATE OF CONSULTATION: 05/15/2020 This is a 64-year-old female who is well known to me from . The patient is easily agitated and is confused, disoriented, pulled out her IV access. The patient is not able to be engaged and answer the question. PAST PSYCHIATRIC HISTORY: Significant for dementia, depression. PAST MEDICAL HISTORY: Significant for failure to thrive, dementia, kidney stone, decubitus skin ulcer, hypertension, CVA. ALLERGIES: Piperacillin, , and trimethoprim. SUBSTANCE ABUSE HISTORY: No known history of illicit drug use or alcohol. MENTAL STATUS EXAMINATION: The patient is awake, confused, disoriented. Mood is neutral to anxious. Affect is flat. Thought process, there is a paucity of thought content. Thought content, no suicidal or homicidal ideation. Cognition is impaired. Insight and judgment is impaired. ASSESSMENT: Vanzant I Dementia with behavior disturbance. Vanzant II Deferred. Vanzant III Failure to thrive. Vanzant IV Low. Vanzant V 25 PLAN: 1. We will start the patient on Remeron 50 mg at bedtime. 2. Provide the patient with reality orientation. Anu Hubbard M.D. DR: RIMMA JOB#: [id number] CC:
[2020-05-16] VITALS (7 sets, daily range): BP systolic 101–144; BP diastolic 53–81
[2020-05-16 06:08] LABS: ALANINE AMINOTRANSFERASE 28 U/L (12-78); ALBUMIN 2.2 G/DL (3.4-5.0); ALBUMIN/GLOBULIN RATIO 0.4 (1.0-2.7); ALKALINE PHOSPHATASE 96 U/L (46-116); ASPARTATE AMINO TRANSFERASE 22 U/L (15-37); BILIRUBIN,TOTAL 0.4 MG/DL (0.2-1.0); BLOOD UREA NITROGEN 21 mg/dL (7-18); CALCIUM 8.6 MG/DL (8.5-10.1); CHLORIDE 108 MMOL/L (98-107); POTASSIUM 3.7 MMOL/L (3.5-5.1); SODIUM 143 MMOL/L (136-145)
[2020-05-16] MEDS: D5 1/2NS w/KCl 20mEq 1,000 ML IV SCH ×2 (06:10→19:07)
[2020-05-16] MEDS: Aztreonam 1gm/D5W 55ml IVPB SCH ×6 (06:10→21:01)
[2020-05-16 06:12] LABS: CARBON DIOXIDE 30 MMOL/L (21-32)
[2020-05-16 06:30] LABS: BASOPHILS % (AUTO) 1.3 % (0.0-2.0); EOSINOPHILS % (AUTO) 2.1 % (0.0-3.0); HEMATOCRIT 35.8 % (37.0-47.0); HEMOGLOBIN 11.5 G/DL (12.0-16.0); LYMPHOCYTES % (AUTO) 34.6 % (20.0-45.0); MEAN CORPUSCULAR VOLUME 95 FL (80-99); MONOCYTES % (AUTO) 5.4 % (1.0-10.0); NEUTROPHILS % (AUTO) 56.7 % (45.0-75.0); PLATELET COUNT 404 K/UL (150-450); RED BLOOD COUNT 3.77 M/UL (4.20-5.40); RED CELL DISTRIBUTION WIDTH 14.8 % (11.6-14.8); WHITE BLOOD COUNT 9.8 K/UL (4.8-10.8)
--- NOTE | 2020-05-16 07:36 | NUR ---
NURSE HAND-OFF: Important Events on Shift: Kept NPO midnight for abdominal ultrasound. Patient Status: Diet: NPO Pending Orders: Pending Results/Labs: Pending MD notification: Latest Vital Signs: Temperature 98.3 , Pulse 82 , B/P 118 /75 , Respiratory Rate 20 , O2 SAT 97 , Room Air, O2 Flow Rate . Vital Sign Comment: Latest Waite Fall Score: 35 Fall Risk: Medium Risk Safety Measures: Call light Within Reach, Bed Alarm Zone 1, Side Rails Side Rails x2, Bed position Low and Locked. Fall Precautions: Yellow Socks Yellow Gown Door Sign Patient Fall Education Report given to Rosey RAMOS.
--- NOTE | 2020-05-16 08:14 | NUR ---
NURSE NOTES: Patient awake alert to name ,respirations unlabored.IV fluids .infusing as ordered.Patient having Abdominal Ultrasound at bedside.Will follow up.
--- NOTE | 2020-05-16 08:48 | Diagnostic Imaging Report ---
EXAM: US Abdomen Complete CLINICAL HISTORY: ABD PAIN TECHNIQUE: Real-time ultrasound of the abdomen with image documentation. COMPARISON: CT abdomen and pelvis May 14, 2020. FINDINGS: Liver: The liver is within normal limits, measuring 12.6 cm. Gallbladder: Cholelithiasis with gallbladder sludge. The common bile duct measures 4 mm. Pancreas: The pancreas is grossly within normal limits. Right Kidney: The right kidney measures 9.1 cm. Staghorn calculus seen in the right kidney, better identified on CT scan from May 14, 2020. Left Kidney: The left kidney measures 12.3 cm. No hydronephrosis or nephrolithiasis. Spleen: The spleen measures 10.2 cm. Abdominal Aorta and IVC: The abdominal aorta measures 1.9 cm in AP dimension. The inferior vena cava is within normal limits. IMPRESSION: Cholelithiasis with gallbladder sludge. No gallbladder wall thickening or pericholecystic fluid. The common bile duct measures 4 mm. Staghorn calculus seen in the right kidney, better identified on CT scan from May 14, 2020.
--- NOTE | 2020-05-16 09:04 | General Progress Note ---
Subjective ROS Limited/Unobtainable: No Allergies: Coded Allergies: PIPERACILLIN (Verified Allergy, Unknown, Rash, 11/27/19) SULFAMETHOXAZOLE (Verified Allergy, Unknown, 11/03/19) TAZOBACTAM (Verified Allergy, Unknown, Rash, 11/27/19) TRIMETHOPRIM (Verified Allergy, Unknown, 11/03/19) Objective Last 24 Hour Vital Signs Date Time Temp Pulse Resp B/P (MAP) Pulse Ox O2 Delivery O2 Flow Rate FiO2 05/16/20 04:00 98.3 82 20 118/75 (89) 97 05/16/20 00:00 98.1 79 20 144/71 (95) 98 05/15/20 21:00 Room Air 05/15/20 20:00 98.4 88 18 124/79 (94) 96 05/15/20 16:00 99.0 75 22 140/70 (93) 97 05/15/20 12:00 98.5 91 20 140/69 (92) 97 Intake and Output 05/15/20 05/16/20 19:00 07:00 Intake Total 100 ml 1110 ml Output Total 400 ml 750 ml Balance -300 ml 360 ml Intake IV Total 100 ml 1110 ml Output Urine Total 400 ml 750 ml # Bowel Movements 1 Laboratory Tests 05/16/20 04:40: White Blood Count 9.8, Red Blood Count 3.77L, Hemoglobin 11.5L, Hematocrit 35.8L , Mean Corpuscular Volume 95, Mean Corpuscular Hemoglobin 30.5, Mean Corpuscular Hemoglobin Concent 32.1, Red Cell Distribution Width 14.8, Platelet Count 404, Mean Platelet Volume 5.6L, Neutrophils (%) (Auto) 56.7, Lymphocytes (%) (Auto) 34.6, Monocytes (%) (Auto) 5.4, Eosinophils (%) (Auto) 2.1, Basophils (%) (Auto) 1.3, Sodium Level 143, Potassium Level 3.7, Chloride Level 108H, Carbon Dioxide Level 30, Blood Urea Nitrogen 21H, Creatinine 1.0, Estimat Glomerular Filtration Rate 56.0, Glucose Level 107H, Calcium Level 8.6, Total Bilirubin 0.4, Aspartate Amino Transf (AST/SGOT) 22, Alanine Aminotransferase (ALT/SGPT) 28, Alkaline Phosphatase 96, Total Protein 8.0, Albumin 2.2L, Globulin 5.8, Albumin/Globulin Ratio 0.4L Height (Feet): 5 Height (Inches): 1.00 Weight (Pounds): 143 General Appearance: no apparent distress EENT: normal ENT inspection Neck: supple Cardiovascular: normal rate Respiratory/Chest: decreased breath sounds Abdomen: normal bowel sounds, non tender, soft Extremities: non-tender Assessment/Plan Problem List: (1) Kidney calculus ICD Codes: N20.0 - Calculus of kidney SNOMED: 46931288 (2) Abdominal pain ICD Codes: R10.9 - Unspecified abdominal pain SNOMED: 38661415 (3) Confusion ICD Codes: R41.0 - Disorientation, unspecified SNOMED: 843643394 (4) Electrolyte imbalance ICD Codes: E87.8 - Other disorders of electrolyte and fluid balance, not elsewhere classified SNOMED: 805780959 (5) HTN (hypertension) ICD Codes: I10 - Essential (primary) hypertension SNOMED: 57168045 (6) CVA (cerebral vascular accident) ICD Codes: I63.9 - Cerebral infarction, unspecified SNOMED: 245279302 (7) Diabetes ICD Codes: E11.9 - Type 2 diabetes mellitus without complications SNOMED: 98528813 (8) Renal failure ICD Codes: N19 - Unspecified kidney failure SNOMED: 33527315 (9) Cholelithiasis ICD Codes: K80.20 - Calculus of gallbladder without cholecystitis without obstruction SNOMED: 961485026 Assessment/Plan: doubt SBO advance diet to full liquid fu surg recs needs urology eval abx for uti psych in put appreciated Luke Noe MD May 16, 2020 09:04
--- NOTE | 2020-05-16 09:08 | Surgery Progress Note ---
Surgery Progress Note Subjective Additional Comments no acute events comfortable tolerating no n/v us noted Objective Last 24 Hour Vital Signs Date Time Temp Pulse Resp B/P (MAP) Pulse Ox O2 Delivery O2 Flow Rate FiO2 05/16/20 04:00 98.3 82 20 118/75 (89) 97 05/16/20 00:00 98.1 79 20 144/71 (95) 98 05/15/20 21:00 Room Air 05/15/20 20:00 98.4 88 18 124/79 (94) 96 05/15/20 16:00 99.0 75 22 140/70 (93) 97 05/15/20 12:00 98.5 91 20 140/69 (92) 97 I&O Intake and Output 05/15/20 05/16/20 19:00 07:00 Intake Total 100 ml 1110 ml Output Total 400 ml 750 ml Balance -300 ml 360 ml Intake IV Total 100 ml 1110 ml Output Urine Total 400 ml 750 ml # Bowel Movements 1 Cardiovascular: RSR Respiratory: decreased breath sounds Abdomen: soft, non-tender, present bowel sounds, non-distended Extremities: no edema, no tenderness, no cyanosis Laboratory Tests Test 05/16/20 04:40 White Blood Count 9.8 K/UL (4.8-10.8) Red Blood Count 3.77 M/UL (4.20-5.40) L Hemoglobin 11.5 G/DL (12.0-16.0) L Hematocrit 35.8 % (37.0-47.0) L Mean Corpuscular Volume 95 FL (80-99) Mean Corpuscular Hemoglobin 30.5 PG (27.0-31.0) Mean Corpuscular Hemoglobin Concent 32.1 G/DL (32.0-36.0) Red Cell Distribution Width 14.8 % (11.6-14.8) Platelet Count 404 K/UL (150-450) Mean Platelet Volume 5.6 FL (6.5-10.1) L Neutrophils (%) (Auto) 56.7 % (45.0-75.0) Lymphocytes (%) (Auto) 34.6 % (20.0-45.0) Monocytes (%) (Auto) 5.4 % (1.0-10.0) Eosinophils (%) (Auto) 2.1 % (0.0-3.0) Basophils (%) (Auto) 1.3 % (0.0-2.0) Sodium Level 143 MMOL/L (136-145) Potassium Level 3.7 MMOL/L (3.5-5.1) Chloride Level 108 MMOL/L (98-107) H Carbon Dioxide Level 30 MMOL/L (21-32) Blood Urea Nitrogen 21 mg/dL (7-18) H Creatinine 1.0 MG/DL (0.55-1.30) Estimat Glomerular Filtration Rate 56.0 mL/min (>60) Glucose Level 107 MG/DL (74-106) H Calcium Level 8.6 MG/DL (8.5-10.1) Total Bilirubin 0.4 MG/DL (0.2-1.0) Aspartate Amino Transf (AST/SGOT) 22 U/L (15-37) Alanine Aminotransferase (ALT/SGPT) 28 U/L (12-78) Alkaline Phosphatase 96 U/L (46-116) Total Protein 8.0 G/DL (6.4-8.2) Albumin 2.2 G/DL (3.4-5.0) L Globulin 5.8 g/dL Albumin/Globulin Ratio 0.4 (1.0-2.7) L Plan Problems: (1) Confusion (2) Diabetes (3) Kidney calculus (4) Renal failure (5) Electrolyte imbalance (6) Abdominal pain Assessment & Plan: 64F with abdominal pain. afebrile, HD Stable labs noted. ng minimal output since placement no pain now and resolved exam benign. abd soft, nt/nd, bs+ recent BM as per RN trial liquid diet iv fluids iv abx trend labs abd US ordered - noted. no acute inflammation of gb diet as tolerated activity as tolerated will follow with recs thank youy ABDOMEN: Liver: Unremarkable. Gallbladder and bile ducts: Distended gallbladder with adjacent stranding. Findings may represent early acute cholecystitis. Pancreas: Unremarkable. Spleen: Unremarkable. Adrenals: Unremarkable. Kidneys and ureters: Staghorn calculus within the right kidney. No hydronephrosis. Stomach and bowel: Markedly distended stomach with fluid and gas to the level of the proximal duodenum no obstructing lesion identified. PELVIS: Appendix: Appendix is unremarkable. Bladder: Unremarkable. Reproductive: See below. ABDOMEN and PELVIS: Intraperitoneal space: Unremarkable. Bones/joints: Calcifications of the uterus which may represent degenerative fibroids. No acute fracture. No dislocation. Soft tissues: Unremarkable. Vasculature: Vascular calcifications. Lymph nodes: Unremarkable. IMPRESSION: 1. Distended gallbladder with adjacent stranding. Findings may represent early acute cholecystitis. 2. Markedly distended stomach with fluid and gas to the level of the proximal duodenum no obstructing lesion identified. 3. Staghorn calculus within the right kidney. No hydronephrosis. Liver: The liver is within normal limits, measuring 12.6 cm. Gallbladder: Cholelithiasis with gallbladder sludge. The common bile duct measures 4 mm. Pancreas: The pancreas is grossly within normal limits. Right Kidney: The right kidney measures 9.1 cm. Staghorn calculus seen in the right kidney, better identified on CT scan from May 14, 2020. Left Kidney: The left kidney measures 12.3 cm. No hydronephrosis or nephrolithiasis. Spleen: The spleen measures 10.2 cm. Abdominal Aorta and IVC: The abdominal aorta measures 1.9 cm in AP dimension. The inferior vena cava is within normal limits. IMPRESSION: Cholelithiasis with gallbladder sludge. No gallbladder wall thickening or pericholecystic fluid. The common bile duct measures 4 mm. Staghorn calculus seen in the right kidney, better identified on CT scan from May 14, 2020. (7) HTN (hypertension) (8) CVA (cerebral vascular accident) (9) Fever (10) Anemia (11) Decubitus skin ulcer (12) Malnutrition OctaviolauraHumble May 16, 2020 09:08
--- NOTE | 2020-05-16 09:42 | Infectious Diseases Prog Note ---
Assessment/Plan Abx: Ciprofloxacin 05/15- Flagyl 05/15- Aztreonam 05/14- Assessment: Sepsis Acute cholecystitis -05/14 CT abd/p w/: Distended gallbladder with adjacent stranding. Findings may represent early acute cholecystitis. Markedly distended stomach with fluid and gas to the level of the proximal duodenum no obstructing lesion identified. Staghorn calculus within the right kidney. No hydronephrosis. Probable UTI -05/14 u/a wbc tnct, nit neg, leuk +3; ucx p Afebrile Leukocytosis, improving CVA DM2 CKD HTN SNF resident ([facility]) Plan: -Continue empiric Aztreonam #3 for acute cholecystitis and awaiting ucx -f/u cx -Monitor CBC/CMP, temperatures -Gen sx f/u -aspiration precautions Thank you for this consultation. Will continue to follow along with you. Subjective Allergies: Coded Allergies: PIPERACILLIN (Verified Allergy, Unknown, Rash, 11/27/19) SULFAMETHOXAZOLE (Verified Allergy, Unknown, 11/03/19) TAZOBACTAM (Verified Allergy, Unknown, Rash, 11/27/19) TRIMETHOPRIM (Verified Allergy, Unknown, 11/03/19) Afebrile Satting well on RA Leukocytosis resolved Objective Last 24 Hour Vital Signs Date Time Temp Pulse Resp B/P (MAP) Pulse Ox O2 Delivery O2 Flow Rate FiO2 05/16/20 04:00 98.3 82 20 118/75 (89) 97 05/16/20 00:00 98.1 79 20 144/71 (95) 98 05/15/20 21:00 Room Air 05/15/20 20:00 98.4 88 18 124/79 (94) 96 05/15/20 16:00 99.0 75 22 140/70 (93) 97 05/15/20 12:00 98.5 91 20 140/69 (92) 97 Height (Feet): 5 Height (Inches): 1.00 Weight (Pounds): 143 GENERAL: Calm in bed, confused CARDIOVASCULAR: RRR, S1, S2 LUNGS: CTAB, No W ABDOMEN: Bowel sounds positive. Soft, nontender, nondistended. Microbiology Date/Time Source Procedure Growth Status 05/14/20 20:10 Urine,Clean Catch Urine Culture - Preliminary Gram Negative Robbin Resulted 05/14/20 19:25 Rectum VRE Culture - Final NO VANCOMYCIN RESISTANT ENTEROCOCCUS ... Complete Laboratory Tests Test 05/16/20 04:40 White Blood Count 9.8 K/UL (4.8-10.8) Red Blood Count 3.77 M/UL (4.20-5.40) L Hemoglobin 11.5 G/DL (12.0-16.0) L Hematocrit 35.8 % (37.0-47.0) L Mean Corpuscular Volume 95 FL (80-99) Mean Corpuscular Hemoglobin 30.5 PG (27.0-31.0) Mean Corpuscular Hemoglobin Concent 32.1 G/DL (32.0-36.0) Red Cell Distribution Width 14.8 % (11.6-14.8) Platelet Count 404 K/UL (150-450) Mean Platelet Volume 5.6 FL (6.5-10.1) L Neutrophils (%) (Auto) 56.7 % (45.0-75.0) Lymphocytes (%) (Auto) 34.6 % (20.0-45.0) Monocytes (%) (Auto) 5.4 % (1.0-10.0) Eosinophils (%) (Auto) 2.1 % (0.0-3.0) Basophils (%) (Auto) 1.3 % (0.0-2.0) Sodium Level 143 MMOL/L (136-145) Potassium Level 3.7 MMOL/L (3.5-5.1) Chloride Level 108 MMOL/L (98-107) H Carbon Dioxide Level 30 MMOL/L (21-32) Blood Urea Nitrogen 21 mg/dL (7-18) H Creatinine 1.0 MG/DL (0.55-1.30) Estimat Glomerular Filtration Rate 56.0 mL/min (>60) Glucose Level 107 MG/DL (74-106) H Calcium Level 8.6 MG/DL (8.5-10.1) Total Bilirubin 0.4 MG/DL (0.2-1.0) Aspartate Amino Transf (AST/SGOT) 22 U/L (15-37) Alanine Aminotransferase (ALT/SGPT) 28 U/L (12-78) Alkaline Phosphatase 96 U/L (46-116) Total Protein 8.0 G/DL (6.4-8.2) Albumin 2.2 G/DL (3.4-5.0) L Globulin 5.8 g/dL Albumin/Globulin Ratio 0.4 (1.0-2.7) L Current Medications Medications (Trade) Dose Ordered Sig/Maryam Route PRN Reason Start Time Stop Time Status Last Admin Dose Admin Acetaminophen (Tylenol) 650 mg Q4H PRN RECTAL Temp >100.5 05/14/20 23:30 06/13/20 23:29 Aztreonam 1 gm/ Dextrose 55 ml @ 110 mls/hr EVERY 8 HOURS IVPB 05/15/20 22:00 05/22/20 21:59 05/16/20 06:10 Dextrose (Dextrose 50%) 25 ml Q30M PRN IV Hypoglycemia 05/14/20 23:30 08/12/20 23:29 Dextrose (Dextrose 50%) 50 ml Q30M PRN IV Hypoglycemia 05/14/20 23:30 08/12/20 23:29 Dextrose/ Electrolytes 1,000 ml @ 100 mls/hr Q10H IV 05/15/20 00:30 06/14/20 00:29 05/16/20 06:10 Heparin Sodium (Porcine) (Heparin 5000 units/ml) 5,000 units EVERY 12 HOURS SUBQ 05/15/20 09:30 06/29/20 09:29 05/15/20 21:19 Iohexol (OMNIPAQUE-300 100ml) 100 ml NOW PRN INJ Radiology Procedure 05/14/20 17:15 05/16/20 17:14 Mirtazapine (Remeron) 15 mg BEDTIME ORAL 05/15/20 21:00 08/13/20 20:59 05/15/20 21:17 Morphine Sulfate (Morphine Sulfate) 2 mg EVERY 3 HOURS PRN IVP Moderate Pain (Pain Scale 4-6) 05/14/20 23:30 05/21/20 23:29 Ondansetron HCl (Zofran) 4 mg Q6H PRN IVP Nausea & Vomiting 05/14/20 23:30 06/13/20 23:29 Pantoprazole (Protonix) 40 mg DAILY IV 05/15/20 09:00 06/14/20 08:59 05/15/20 09:28 Supa Dempsey MD May 16, 2020 09:42
[2020-05-16] MEDS: Pantoprazole Inj IV SCH (09:46)
[2020-05-16] MEDS: Heparin 5000 units/ml inj SUBQ SCH ×2 (09:47→21:01)
--- NOTE | 2020-05-16 10:05 | General Progress Note ---
Subjective Constitutional: Reports: weakness Allergies: Coded Allergies: PIPERACILLIN (Verified Allergy, Unknown, Rash, 11/27/19) SULFAMETHOXAZOLE (Verified Allergy, Unknown, 11/03/19) TAZOBACTAM (Verified Allergy, Unknown, Rash, 11/27/19) TRIMETHOPRIM (Verified Allergy, Unknown, 11/03/19) All Systems: reviewed and negative except above Subjective calm in bed Objective Last 24 Hour Vital Signs Date Time Temp Pulse Resp B/P (MAP) Pulse Ox O2 Delivery O2 Flow Rate FiO2 05/16/20 09:56 Room Air 05/16/20 04:00 98.3 82 20 118/75 (89) 97 05/16/20 00:00 98.1 79 20 144/71 (95) 98 05/15/20 21:00 Room Air 05/15/20 20:00 98.4 88 18 124/79 (94) 96 05/15/20 16:00 99.0 75 22 140/70 (93) 97 05/15/20 12:00 98.5 91 20 140/69 (92) 97 Intake and Output 05/15/20 05/16/20 19:00 07:00 Intake Total 100 ml 1110 ml Output Total 400 ml 750 ml Balance -300 ml 360 ml Intake IV Total 100 ml 1110 ml Output Urine Total 400 ml 750 ml # Bowel Movements 1 Laboratory Tests 05/16/20 04:40: White Blood Count 9.8, Red Blood Count 3.77L, Hemoglobin 11.5L, Hematocrit 35.8L , Mean Corpuscular Volume 95, Mean Corpuscular Hemoglobin 30.5, Mean Corpuscular Hemoglobin Concent 32.1, Red Cell Distribution Width 14.8, Platelet Count 404, Mean Platelet Volume 5.6L, Neutrophils (%) (Auto) 56.7, Lymphocytes (%) (Auto) 34.6, Monocytes (%) (Auto) 5.4, Eosinophils (%) (Auto) 2.1, Basophils (%) (Auto) 1.3, Sodium Level 143, Potassium Level 3.7, Chloride Level 108H, Carbon Dioxide Level 30, Blood Urea Nitrogen 21H, Creatinine 1.0, Estimat Glomerular Filtration Rate 56.0, Glucose Level 107H, Calcium Level 8.6, Total Bilirubin 0.4, Aspartate Amino Transf (AST/SGOT) 22, Alanine Aminotransferase (ALT/SGPT) 28, Alkaline Phosphatase 96, Total Protein 8.0, Albumin 2.2L, Globulin 5.8, Albumin/Globulin Ratio 0.4L Height (Feet): 5 Height (Inches): 1.00 Weight (Pounds): 143 General Appearance: lethargic, confused EENT: normal ENT inspection Neck: normal alignment Cardiovascular: normal peripheral pulses, normal rate, regular rhythm Respiratory/Chest: chest wall non-tender, lungs clear, normal breath sounds Abdomen: normal bowel sounds, non tender, soft Extremities: normal inspection Edema: no edema noted Arm (L), no edema noted Arm (R), no edema noted Leg (L), no edema noted Leg (R), no edema noted Pedal (L), no edema noted Pedal (R), no edema noted Generalized Neurologic: motor weakness Skin: normal pigmentation, warm/dry Assessment/Plan Problem List: (1) Confusion ICD Codes: R41.0 - Disorientation, unspecified SNOMED: 755380640 (2) Diabetes ICD Codes: E11.9 - Type 2 diabetes mellitus without complications SNOMED: 31054125 (3) Renal failure ICD Codes: N19 - Unspecified kidney failure SNOMED: 87255453 (4) Kidney calculus ICD Codes: N20.0 - Calculus of kidney SNOMED: 58581104 (5) Abdominal pain ICD Codes: R10.9 - Unspecified abdominal pain SNOMED: 02748634 (6) HTN (hypertension) ICD Codes: I10 - Essential (primary) hypertension SNOMED: 41693078 (7) CVA (cerebral vascular accident) ICD Codes: I63.9 - Cerebral infarction, unspecified SNOMED: 390668193 (8) Malnutrition ICD Codes: E46 - Unspecified protein-calorie malnutrition SNOMED: 18892561 (9) Cholelithiasis ICD Codes: K80.20 - Calculus of gallbladder without cholecystitis without obstruction SNOMED: 341753926 Status: unchanged Assessment/Plan: bp bs pain control abx cbc bmp Trevor Moyer DO May 16, 2020 10:05
--- NOTE | 2020-05-16 13:56 | Psychiatric Progress Note ---
Psychiatry Progress Note Psychiatry Progress Note Medications Current Medications Medications (Trade) Dose Ordered Sig/Maryam Route PRN Reason Start Time Stop Time Status Last Admin Dose Admin Acetaminophen (Tylenol) 650 mg Q4H PRN RECTAL Temp >100.5 05/14/20 23:30 06/13/20 23:29 Aztreonam 1 gm/ Dextrose 55 ml @ 110 mls/hr EVERY 8 HOURS IVPB 05/15/20 22:00 05/22/20 21:59 05/16/20 06:10 Dextrose (Dextrose 50%) 25 ml Q30M PRN IV Hypoglycemia 05/14/20 23:30 08/12/20 23:29 Dextrose (Dextrose 50%) 50 ml Q30M PRN IV Hypoglycemia 05/14/20 23:30 08/12/20 23:29 Dextrose/ Electrolytes 1,000 ml @ 100 mls/hr Q10H IV 05/15/20 00:30 06/14/20 00:29 05/16/20 06:10 Heparin Sodium (Porcine) (Heparin 5000 units/ml) 5,000 units EVERY 12 HOURS SUBQ 05/15/20 09:30 06/29/20 09:29 05/16/20 09:47 Iohexol (OMNIPAQUE-300 100ml) 100 ml NOW PRN INJ Radiology Procedure 05/14/20 17:15 05/16/20 17:14 Mirtazapine (Remeron) 15 mg BEDTIME ORAL 05/15/20 21:00 08/13/20 20:59 05/15/20 21:17 Morphine Sulfate (Morphine Sulfate) 2 mg EVERY 3 HOURS PRN IVP Moderate Pain (Pain Scale 4-6) 05/14/20 23:30 05/21/20 23:29 Ondansetron HCl (Zofran) 4 mg Q6H PRN IVP Nausea & Vomiting 05/14/20 23:30 06/13/20 23:29 Pantoprazole (Protonix) 40 mg DAILY IV 05/15/20 09:00 06/14/20 08:59 05/16/20 09:46 Neurological/Psychiatric: Reports: anxiety, depressed, emotional problems Allergies: Coded Allergies: PIPERACILLIN (Verified Allergy, Unknown, Rash, 11/27/19) SULFAMETHOXAZOLE (Verified Allergy, Unknown, 11/03/19) TAZOBACTAM (Verified Allergy, Unknown, Rash, 11/27/19) TRIMETHOPRIM (Verified Allergy, Unknown, 11/03/19) Objective Data Height (Feet): 5 Height (Inches): 1.00 Weight (Pounds): 143 General Appearance: confused, moderate distress, agitated Additional Comments: awake, confused, disoriented. Mood is neutral to anxious. Affect is flat. Thought process, there is a paucity of thought content. Thought content, no suicidal or homicidal ideation. Cognition is impaired. Insight and judgment is impaired. Assessment/Plan Status: unchanged Assessment/Plan: Alb[place] I Dementia with behavior disturbance. Alb[place] II Deferred. Albion III Failure to thrive. Albion IV Low. Albion V 25 PLAN: 1. We will start the patient on [id number] mg at bedtime. 2. Provide the patient with reality orientation. Anu Hubbard MD May 16, 2020 13:56
[2020-05-16] MEDS ORDERED: ASPIRIN81 MG ORAL (14:43)
[2020-05-16] MEDS ORDERED: ACETAMINOPHEN325 M1 ORAL (14:43)
--- NOTE | 2020-05-16 19:10 | NUR ---
NURSE NOTES: Patient had a large soft BM,skin care given.position for comfort.Patient tolerated full liquid diet.Bed alarm on,call light within reach.
--- NOTE | 2020-05-16 19:35 | NUR ---
NURSE HAND-OFF:Laurence RAMOS Important Events on Shift:[soft wrist restraints,patient pulls on devices Patient Status: [] Diet: [ Full Liquid] Pending Orders: [] Pending Results/Labs:[] Pending MD notification:[] Latest Vital Signs: Temperature 98.2 , Pulse 71 , B/P 130 /63 , Respiratory Rate 18 , O2 SAT 96 , Room Air, O2 Flow Rate . Vital Sign Comment: [] Latest Waite Fall Score: 35 Fall Risk: Medium Risk Safety Measures: Call light Within Reach, Bed Alarm Zone 1, Side Rails Side Rails x2, Bed position Low and Locked. Fall Precautions: Yellow Socks y Yellow Gown Door Sign y Patient Fall Education bed alarm Report given to [].
[2020-05-17] VITALS: BP 139/69
[2020-05-17] MEDS: D5 1/2NS w/KCl 20mEq 1,000 ML IV SCH ×2 (02:04→14:30)
[2020-05-17 04:00] VITALS: BP 128/69
[2020-05-17] MEDS: Aztreonam 1gm/D5W 55ml IVPB SCH ×6 (05:15→21:58)
[2020-05-17 06:48] LABS: BASOPHILS % (AUTO) 1.3 % (0.0-2.0); EOSINOPHILS % (AUTO) 2.7 % (0.0-3.0); HEMATOCRIT 37.1 % (37.0-47.0); HEMOGLOBIN 11.7 G/DL (12.0-16.0); LYMPHOCYTES % (AUTO) 29.7 % (20.0-45.0); MEAN CORPUSCULAR VOLUME 98 FL (80-99); MONOCYTES % (AUTO) 4.6 % (1.0-10.0); NEUTROPHILS % (AUTO) 61.8 % (45.0-75.0); PLATELET COUNT 445 K/UL (150-450); RED CELL DISTRIBUTION WIDTH 14.1 % (11.6-14.8); WHITE BLOOD COUNT 9.2 K/UL (4.8-10.8)
--- NOTE | 2020-05-17 07:23 | NUR ---
NURSE HAND-OFF: Important Events on Shift: Patient Status: Diet: Full liquid Pending Orders: Pending Results/Labs: Pending MD notification: Latest Vital Signs: Temperature 98.0 , Pulse 69 , B/P 128 /69 , Respiratory Rate 16 , O2 SAT 96 , Room Air, O2 Flow Rate . Vital Sign Comment: Latest Waite Fall Score: 35 Fall Risk: Medium Risk Safety Measures: Call light Within Reach, Bed Alarm Zone 1, Side Rails Side Rails x2, Bed position Low and Locked. Fall Precautions: Yellow Socks Yellow Gown Door Sign Patient Fall Education Report given to Gracie RAMOS.
[2020-05-17 07:33] LABS: ALANINE AMINOTRANSFERASE 23 U/L (12-78); ALBUMIN 2.2 G/DL (3.4-5.0); ALBUMIN/GLOBULIN RATIO 0.4 (1.0-2.7); ALKALINE PHOSPHATASE 84 U/L (46-116); ANION GAP 7 mmol/L (5-15); ASPARTATE AMINO TRANSFERASE 19 U/L (15-37); BILIRUBIN,TOTAL 0.3 MG/DL (0.2-1.0); BLOOD UREA NITROGEN 8 mg/dL (7-18); CALCIUM 8.2 MG/DL (8.5-10.1); CARBON DIOXIDE 26 MMOL/L (21-32); CHLORIDE 108 MMOL/L (98-107); CREATININE 0.8 MG/DL (0.55-1.30); POTASSIUM 3.8 MMOL/L (3.5-5.1); SODIUM 141 MMOL/L (136-145)
--- NOTE | 2020-05-17 07:53 | General Progress Note ---
Subjective ROS Limited/Unobtainable: Yes Allergies: Coded Allergies: PIPERACILLIN (Verified Allergy, Unknown, Rash, 11/27/19) SULFAMETHOXAZOLE (Verified Allergy, Unknown, 11/03/19) TAZOBACTAM (Verified Allergy, Unknown, Rash, 11/27/19) TRIMETHOPRIM (Verified Allergy, Unknown, 11/03/19) Objective Last 24 Hour Vital Signs Date Time Temp Pulse Resp B/P (MAP) Pulse Ox O2 Delivery O2 Flow Rate FiO2 05/17/20 04:00 98.0 69 16 128/69 (88) 96 05/17/20 00:00 98.1 75 17 139/69 (92) 97 05/16/20 21:00 Room Air 05/16/20 20:00 98.4 76 17 125/61 (82) 96 05/16/20 16:00 98.2 71 18 130/63 (85) 96 05/16/20 12:00 98.1 69 18 101/53 (69) 96 05/16/20 10:05 97.7 71 18 112/81 (91) 96 05/16/20 09:56 Room Air 05/16/20 08:00 97.7 71 18 112/81 (91) 96 Intake and Output 05/16/20 05/17/20 19:00 07:00 Intake Total 1430 ml 1370 ml Output Total 300 ml 600 ml Balance 1130 ml 770 ml Intake Oral 480 ml IV Total 950 ml 1010 ml Other 360 ml Output Urine Total 300 ml 600 ml # Voids 2 # Bowel Movements 1 Laboratory Tests 05/17/20 05:30: White Blood Count 9.2, Red Blood Count 3.80L, Hemoglobin 11.7L, Hematocrit 37.1, Mean Corpuscular Volume 98, Mean Corpuscular Hemoglobin 30.9, Mean Corpuscular Hemoglobin Concent 31.7L, Red Cell Distribution Width 14.1, Platelet Count 445, Mean Platelet Volume 5.3L, Neutrophils (%) (Auto) 61.8, Lymphocytes (%) (Auto) 29.7, Monocytes (%) (Auto) 4.6, Eosinophils (%) (Auto) 2.7, Basophils (%) (Auto) 1.3, Sodium Level 141, Potassium Level 3.8, Chloride Level 108H, Carbon Dioxide Level 26, Anion Gap 7, Blood Urea Nitrogen 8, Creatinine 0.8, Estimat Glomerular Filtration Rate > 60, Glucose Level 91, Calcium Level 8.2L, Total Bilirubin 0.3, Aspartate Amino Transf (AST/SGOT) 19, Alanine Aminotransferase (ALT/SGPT) 23, Alkaline Phosphatase 84, Total Protein 8.4H, Albumin 2.2L, Globulin 6.2, Albumin/Globulin Ratio 0.4L Height (Feet): 5 Height (Inches): 1.00 Weight (Pounds): 143 General Appearance: alert EENT: normal ENT inspection Neck: supple Cardiovascular: normal rate Respiratory/Chest: decreased breath sounds Abdomen: hypoactive bowel sounds Extremities: non-tender Assessment/Plan Problem List: (1) Kidney calculus ICD Codes: N20.0 - Calculus of kidney SNOMED: 11840303 (2) Abdominal pain ICD Codes: R10.9 - Unspecified abdominal pain SNOMED: 61637389 (3) Confusion ICD Codes: R41.0 - Disorientation, unspecified SNOMED: 783041719 (4) Electrolyte imbalance ICD Codes: E87.8 - Other disorders of electrolyte and fluid balance, not elsewhere classified SNOMED: 562697775 (5) HTN (hypertension) ICD Codes: I10 - Essential (primary) hypertension SNOMED: 69734987 (6) CVA (cerebral vascular accident) ICD Codes: I63.9 - Cerebral infarction, unspecified SNOMED: 319163904 (7) Diabetes ICD Codes: E11.9 - Type 2 diabetes mellitus without complications SNOMED: 11735690 (8) Renal failure ICD Codes: N19 - Unspecified kidney failure SNOMED: 75472167 (9) Cholelithiasis ICD Codes: K80.20 - Calculus of gallbladder without cholecystitis without obstruction SNOMED: 210541986 Status: unchanged Assessment/Plan: doubt SBO advance diet to reg fu surg recs needs urology eval abx for uti psych in put appreciated Luke Noe MD May 17, 2020 07:53
[2020-05-17 08:00] VITALS: BP 122/72
--- NOTE | 2020-05-17 08:00 | NUR ---
NURSE NOTES: Received patient in bed, on bilateral soft wrists restraints due to pt pulling devices. Skin under restraints is intact, radial pulse (+). In room air, in no apparent distress. A&OX1, confused. IV site on RAC, receives IVF, no sign of leakage or infiltration noted. Bed locked, on lowest position possible, call light within, side rails upx3. Will continue to monitor pt and follow up with the plan of care.
--- NOTE | 2020-05-17 09:06 | General Progress Note ---
Subjective Constitutional: Reports: weakness Allergies: Coded Allergies: PIPERACILLIN (Verified Allergy, Unknown, Rash, 11/27/19) SULFAMETHOXAZOLE (Verified Allergy, Unknown, 11/03/19) TAZOBACTAM (Verified Allergy, Unknown, Rash, 11/27/19) TRIMETHOPRIM (Verified Allergy, Unknown, 11/03/19) All Systems: reviewed and negative except above Subjective calm in bed Objective Last 24 Hour Vital Signs Date Time Temp Pulse Resp B/P (MAP) Pulse Ox O2 Delivery O2 Flow Rate FiO2 05/17/20 08:00 98.3 62 18 122/72 (89) 97 05/17/20 04:00 98.0 69 16 128/69 (88) 96 05/17/20 00:00 98.1 75 17 139/69 (92) 97 05/16/20 21:00 Room Air 05/16/20 20:00 98.4 76 17 125/61 (82) 96 05/16/20 16:00 98.2 71 18 130/63 (85) 96 05/16/20 12:00 98.1 69 18 101/53 (69) 96 05/16/20 10:05 97.7 71 18 112/81 (91) 96 05/16/20 09:56 Room Air Intake and Output 05/16/20 05/17/20 19:00 07:00 Intake Total 1430 ml 1370 ml Output Total 300 ml 600 ml Balance 1130 ml 770 ml Intake Oral 480 ml IV Total 950 ml 1010 ml Other 360 ml Output Urine Total 300 ml 600 ml # Voids 2 # Bowel Movements 1 Laboratory Tests 05/17/20 05:30: White Blood Count 9.2, Red Blood Count 3.80L, Hemoglobin 11.7L, Hematocrit 37.1, Mean Corpuscular Volume 98, Mean Corpuscular Hemoglobin 30.9, Mean Corpuscular Hemoglobin Concent 31.7L, Red Cell Distribution Width 14.1, Platelet Count 445, Mean Platelet Volume 5.3L, Neutrophils (%) (Auto) 61.8, Lymphocytes (%) (Auto) 29.7, Monocytes (%) (Auto) 4.6, Eosinophils (%) (Auto) 2.7, Basophils (%) (Auto) 1.3, Sodium Level 141, Potassium Level 3.8, Chloride Level 108H, Carbon Dioxide Level 26, Anion Gap 7, Blood Urea Nitrogen 8, Creatinine 0.8, Estimat Glomerular Filtration Rate > 60, Glucose Level 91, Calcium Level 8.2L, Total Bilirubin 0.3, Aspartate Amino Transf (AST/SGOT) 19, Alanine Aminotransferase (ALT/SGPT) 23, Alkaline Phosphatase 84, Total Protein 8.4H, Albumin 2.2L, Globulin 6.2, Albumin/Globulin Ratio 0.4L Height (Feet): 5 Height (Inches): 1.00 Weight (Pounds): 143 General Appearance: lethargic EENT: normal ENT inspection Neck: normal alignment Cardiovascular: normal peripheral pulses, normal rate, regular rhythm Respiratory/Chest: chest wall non-tender, lungs clear, normal breath sounds Abdomen: normal bowel sounds, non tender, soft Extremities: normal inspection Edema: no edema noted Arm (L), no edema noted Arm (R), no edema noted Leg (L), no edema noted Leg (R), no edema noted Pedal (L), no edema noted Pedal (R), no edema noted Generalized Neurologic: motor weakness Skin: normal pigmentation, warm/dry Assessment/Plan Problem List: (1) Confusion ICD Codes: R41.0 - Disorientation, unspecified SNOMED: 706095697 (2) Diabetes ICD Codes: E11.9 - Type 2 diabetes mellitus without complications SNOMED: 60202347 (3) Renal failure ICD Codes: N19 - Unspecified kidney failure SNOMED: 96154405 (4) Kidney calculus ICD Codes: N20.0 - Calculus of kidney SNOMED: 40021941 (5) Abdominal pain ICD Codes: R10.9 - Unspecified abdominal pain SNOMED: 20951244 (6) HTN (hypertension) ICD Codes: I10 - Essential (primary) hypertension SNOMED: 23841011 (7) CVA (cerebral vascular accident) ICD Codes: I63.9 - Cerebral infarction, unspecified SNOMED: 486494812 (8) Malnutrition ICD Codes: E46 - Unspecified protein-calorie malnutrition SNOMED: 20012598 (9) Cholelithiasis ICD Codes: K80.20 - Calculus of gallbladder without cholecystitis without obstr uction SNOMED: 213475719 Status: unchanged Assessment/Plan: bp bs pain control abx cbc bmp am Trevor Cabrera DO May 17, 2020 09:06
[2020-05-17] MEDS: Pantoprazole Inj IV SCH (09:18)
[2020-05-17] MEDS: Heparin 5000 units/ml inj SUBQ SCH ×2 (09:20→21:58)
--- NOTE | 2020-05-17 10:31 | Surgery Progress Note ---
Surgery Progress Note Subjective Additional Comments afebrile HD stable labs okay comfortable psych input appreciated Objective Last 24 Hour Vital Signs Date Time Temp Pulse Resp B/P (MAP) Pulse Ox O2 Delivery O2 Flow Rate FiO2 05/17/20 08:00 98.3 62 18 122/72 (89) 97 05/17/20 04:00 98.0 69 16 128/69 (88) 96 05/17/20 00:00 98.1 75 17 139/69 (92) 97 05/16/20 21:00 Room Air 05/16/20 20:00 98.4 76 17 125/61 (82) 96 05/16/20 16:00 98.2 71 18 130/63 (85) 96 05/16/20 12:00 98.1 69 18 101/53 (69) 96 I&O Intake and Output 05/16/20 05/17/20 19:00 07:00 Intake Total 1430 ml 1370 ml Output Total 300 ml 600 ml Balance 1130 ml 770 ml Intake Oral 480 ml IV Total 950 ml 1010 ml Other 360 ml Output Urine Total 300 ml 600 ml # Voids 2 # Bowel Movements 1 Cardiovascular: RSR Respiratory: clear Abdomen: soft, flat, non-tender, present bowel sounds Extremities: no edema, no tenderness, no cyanosis Laboratory Tests Test 05/17/20 05:30 White Blood Count 9.2 K/UL (4.8-10.8) Red Blood Count 3.80 M/UL (4.20-5.40) L Hemoglobin 11.7 G/DL (12.0-16.0) L Hematocrit 37.1 % (37.0-47.0) Mean Corpuscular Volume 98 FL (80-99) Mean Corpuscular Hemoglobin 30.9 PG (27.0-31.0) Mean Corpuscular Hemoglobin Concent 31.7 G/DL (32.0-36.0) L Red Cell Distribution Width 14.1 % (11.6-14.8) Platelet Count 445 K/UL (150-450) Mean Platelet Volume 5.3 FL (6.5-10.1) L Neutrophils (%) (Auto) 61.8 % (45.0-75.0) Lymphocytes (%) (Auto) 29.7 % (20.0-45.0) Monocytes (%) (Auto) 4.6 % (1.0-10.0) Eosinophils (%) (Auto) 2.7 % (0.0-3.0) Basophils (%) (Auto) 1.3 % (0.0-2.0) Sodium Level 141 MMOL/L (136-145) Potassium Level 3.8 MMOL/L (3.5-5.1) Chloride Level 108 MMOL/L (98-107) H Carbon Dioxide Level 26 MMOL/L (21-32) Anion Gap 7 mmol/L (5-15) Blood Urea Nitrogen 8 mg/dL (7-18) Creatinine 0.8 MG/DL (0.55-1.30) Estimat Glomerular Filtration Rate > 60 mL/min (>60) Glucose Level 91 MG/DL (74-106) Calcium Level 8.2 MG/DL (8.5-10.1) L Total Bilirubin 0.3 MG/DL (0.2-1.0) Aspartate Amino Transf (AST/SGOT) 19 U/L (15-37) Alanine Aminotransferase (ALT/SGPT) 23 U/L (12-78) Alkaline Phosphatase 84 U/L (46-116) Total Protein 8.4 G/DL (6.4-8.2) H Albumin 2.2 G/DL (3.4-5.0) L Globulin 6.2 g/dL Albumin/Globulin Ratio 0.4 (1.0-2.7) L Plan Problems: (1) Confusion (2) Diabetes (3) Kidney calculus (4) Renal failure (5) Electrolyte imbalance (6) Abdominal pain Assessment & Plan: 64F with abdominal pain. afebrile, HD Stable labs noted. ng minimal output since placement no pain now and resolved exam benign. abd soft, nt/nd, bs+ recent BM as per RN trial liquid diet iv fluids iv abx trend labs abd US ordered - noted. no acute inflammation of gb diet as tolerated activity as tolerated will follow with recs thank you d/c planning ABDOMEN: Liver: Unremarkable. Gallbladder and bile ducts: Distended gallbladder with adjacent stranding. Findings may represent early acute cholecystitis. Pancreas: Unremarkable. Spleen: Unremarkable. Adrenals: Unremarkable. Kidneys and ureters: Staghorn calculus within the right kidney. No hydronephrosis. Stomach and bowel: Markedly distended stomach with fluid and gas to the level of the proximal duodenum no obstructing lesion identified. PELVIS: Appendix: Appendix is unremarkable. Bladder: Unremarkable. Reproductive: See below. ABDOMEN and PELVIS: Intraperitoneal space: Unremarkable. Bones/joints: Calcifications of the uterus which may represent degenerative fibroids. No acute fracture. No dislocation. Soft tissues: Unremarkable. Vasculature: Vascular calcifications. Lymph nodes: Unremarkable. IMPRESSION: 1. Distended gallbladder with adjacent stranding. Findings may represent early acute cholecystitis. 2. Markedly distended stomach with fluid and gas to the level of the proximal duodenum no obstructing lesion identified. 3. Staghorn calculus within the right kidney. No hydronephrosis. Liver: The liver is within normal limits, measuring 12.6 cm. Gallbladder: Cholelithiasis with gallbladder sludge. The common bile duct measures 4 mm. Pancreas: The pancreas is grossly within normal limits. Right Kidney: The right kidney measures 9.1 cm. Staghorn calculus seen in the right kidney, better identified on CT scan from May 14, 2020. Left Kidney: The left kidney measures 12.3 cm. No hydronephrosis or nephrolithiasis. Spleen: The spleen measures 10.2 cm. Abdominal Aorta and IVC: The abdominal aorta measures 1.9 cm in AP dimension. The inferior vena cava is within normal limits. IMPRESSION: Cholelithiasis with gallbladder sludge. No gallbladder wall thickening or pericholecystic fluid. The common bile duct measures 4 mm. Staghorn calculus seen in the right kidney, better identified on CT scan from May 14, 2020. (7) HTN (hypertension) (8) CVA (cerebral vascular accident) (9) Fever (10) Anemia (11) Decubitus skin ulcer (12) Malnutrition Humble Sewell May 17, 2020 10:31
--- NOTE | 2020-05-17 11:14 | NUR ---
CASE MANAGEMENT: Faxed CM review and clinical info (face sheet / H&P/ ER MD notes / progress notes / lab and imaging reports inc vs / admit order ) to KALIE OSPINA @ [phone]. T#[id number]
[2020-05-17 12:00] VITALS: BP 128/63
[2020-05-17 16:00] VITALS: BP 129/72
--- NOTE | 2020-05-17 16:15 | NUR ---
NURSE NOTES: removed bilateral soft wrist restraints for checking if patient can remain without restraints. Patient is calm, not reaching for the devices or tubing at the moment, not trying to get out of bed or climbing side rails.
--- NOTE | 2020-05-17 19:54 | NUR ---
NURSE HAND-OFF: Important Events on Shift:[DC'd krystyna soft wrist restraints] Patient Status: [stable] Diet: [regular] Pending Orders: [] Pending Results/Labs:[] Pending MD notification:[] Latest Vital Signs: Temperature 97.4 , Pulse 84 , B/P 129 /72 , Respiratory Rate 19 , O2 SAT 96 , Room Air, O2 Flow Rate . Vital Sign Comment: [] Latest Waite Fall Score: 35 Fall Risk: Medium Risk Safety Measures: Call light Within Reach, Bed Alarm Zone 1, Side Rails Side Rails x2, Bed position Low and Locked. Fall Precautions: Yellow Socks Yellow Gown Door Sign Patient Fall Education Report given to [RACHEL Cortez].
[2020-05-17 20:00] VITALS: BP 126/80
--- NOTE | 2020-05-17 20:00 | NUR ---
NURSE NOTES: Received patient from RACHEL Bowman, Pt is sitting in semi fowlers in bed, restraints were removed earlier in the day. Pt is on room air, in no apparent distress. A&OX1, confused not speaking. IV site on RAC, occluded, will reinsert new IV as she has fluids running. Bed locked, in lowest position possible, call light within, side rails up x3. Will continue to monitor pt and follow up with the plan of care.
--- NOTE | 2020-05-17 22:00 | NUR ---
NURSE NOTES: Incidental finding of wound on left buttocks, previously was described as just hypopigmentation but there is evidence of partial thickness loss, devulcanizer charger informed, wound care protocol initiated and process plan created.
[2020-05-18] VITALS: BP 140/84
[2020-05-18] MEDS: D5 1/2NS w/KCl 20mEq 1,000 ML IV SCH ×3 (02:16→18:53)
[2020-05-18 04:00] VITALS: BP 135/82
[2020-05-18] MEDS: Aztreonam 1gm/D5W 55ml IVPB SCH ×6 (06:17→21:27)
[2020-05-18 07:14] LABS: BASOPHILS % (AUTO) 0.8 % (0.0-2.0); EOSINOPHILS % (AUTO) 2.6 % (0.0-3.0); HEMATOCRIT 36.4 % (37.0-47.0); HEMOGLOBIN 11.9 G/DL (12.0-16.0); LYMPHOCYTES % (AUTO) 27.4 % (20.0-45.0); MEAN CORPUSCULAR VOLUME 95 FL (80-99); MONOCYTES % (AUTO) 3.7 % (1.0-10.0); NEUTROPHILS % (AUTO) 65.4 % (45.0-75.0); PLATELET COUNT 441 K/UL (150-450); RED BLOOD COUNT 3.85 M/UL (4.20-5.40); RED CELL DISTRIBUTION WIDTH 14.3 % (11.6-14.8); WHITE BLOOD COUNT 10.4 K/UL (4.8-10.8)
[2020-05-18 07:26] LABS: CALCIUM 8.1 MG/DL (8.5-10.1); POTASSIUM 4.5 MMOL/L (3.5-5.1)
--- NOTE | 2020-05-18 07:32 | NUR ---
NURSE HAND-OFF: Important Events on Shift: wound on left buttocks, partial thickness loss, wound care protocol initiated and reinforce turning pt, added optifoam to all bony prominences, pt is bedbound Patient Status: [stable] Diet: [regular, crush meds in juice] Pending Orders: [cbc, bmp] Pending Results/Labs:[cbc, bmp] Latest Waite Fall Score: 35 Fall Risk: Medium Risk Safety Measures: Call light Within Reach, Bed Alarm Zone 1, Side Rails Side Rails x2, Bed position Low and Locked. Fall Precautions: Yellow Socks Yellow Gown Door Sign Patient Fall Education Report given to Wilfredo RAMOS
[2020-05-18 08:00] VITALS: BP 136/72
[2020-05-18] MEDS: Pantoprazole Inj IV SCH (08:24)
[2020-05-18] MEDS: Heparin 5000 units/ml inj SUBQ SCH ×2 (08:26→21:29)
--- NOTE | 2020-05-18 09:25 | General Progress Note ---
Subjective Constitutional: Reports: weakness Allergies: Coded Allergies: PIPERACILLIN (Verified Allergy, Unknown, Rash, 11/27/19) SULFAMETHOXAZOLE (Verified Allergy, Unknown, 11/03/19) TAZOBACTAM (Verified Allergy, Unknown, Rash, 11/27/19) TRIMETHOPRIM (Verified Allergy, Unknown, 11/03/19) All Systems: reviewed and negative except above Subjective calm in bed Objective Last 24 Hour Vital Signs Date Time Temp Pulse Resp B/P (MAP) Pulse Ox O2 Delivery O2 Flow Rate FiO2 05/18/20 04:00 98.1 86 18 135/82 (99) 94 05/18/20 00:00 97.8 82 18 140/84 (102) 94 05/17/20 21:15 Room Air 05/17/20 20:00 96.9 87 20 126/80 (95) 93 05/17/20 16:00 97.4 84 19 129/72 (91) 96 05/17/20 12:00 98.3 80 18 128/63 (84) 98 Intake and Output 05/17/20 05/18/20 19:00 07:00 Intake Total 1355 ml Output Total 400 ml Balance 1355 ml -400 ml IV Total 755 ml Other 600 ml Output Urine Total 400 ml Laboratory Tests 05/18/20 06:30: White Blood Count 10.4, Red Blood Count 3.85L, Hemoglobin 11.9L, Hematocrit 36.4L, Mean Corpuscular Volume 95, Mean Corpuscular Hemoglobin 31.0, Mean Corpuscular Hemoglobin Concent 32.8, Red Cell Distribution Width 14.3, Platelet Count 441, Mean Platelet Volume 5.3L, Neutrophils (%) (Auto) 65.4, Lymphocytes (%) (Auto) 27.4, Monocytes (%) (Auto) 3.7, Eosinophils (%) (Auto) 2.6, Basophils (%) (Auto) 0.8, Sodium Level 139, Potassium Level 4.5, Chloride Level 108H, Carbon Dioxide Level 24, Anion Gap 7, Blood Urea Nitrogen 5L, Creatinine 1.0, Estimat Glomerular Filtration Rate 56.0, Glucose Level 129H, Calcium Level 8.1L Height (Feet): 5 Height (Inches): 1.00 Weight (Pounds): 143 General Appearance: lethargic EENT: normal ENT inspection Neck: normal alignment Cardiovascular: normal peripheral pulses, normal rate, regular rhythm Respiratory/Chest: chest wall non-tender, lungs clear, normal breath sounds Abdomen: normal bowel sounds, non tender, soft Extremities: normal inspection Edema: no edema noted Arm (L), no edema noted Arm (R), no edema noted Leg (L), no edema noted Leg (R), no edema noted Pedal (L), no edema noted Pedal (R), no edema noted Generalized Neurologic: motor weakness Skin: normal pigmentation, warm/dry Assessment/Plan Problem List: (1) Confusion ICD Codes: R41.0 - Disorientation, unspecified SNOMED: 800492516 (2) Diabetes ICD Codes: E11.9 - Type 2 diabetes mellitus without complications SNOMED: 49756393 (3) Renal failure ICD Codes: N19 - Unspecified kidney failure SNOMED: 92726633 (4) Kidney calculus ICD Codes: N20.0 - Calculus of kidney SNOMED: 96787244 (5) Abdominal pain ICD Codes: R10.9 - Unspecified abdominal pain SNOMED: 73526897 (6) HTN (hypertension) ICD Codes: I10 - Essential (primary) hypertension SNOMED: 79612792 (7) CVA (cerebral vascular accident) ICD Codes: I63.9 - Cerebral infarction, unspecified SNOMED: 806536007 (8) Malnutrition ICD Codes: E46 - Unspecified protein-calorie malnutrition SNOMED: 71237372 (9) Cholelithiasis ICD Codes: K80.20 - Calculus of gallbladder without cholecystitis without obstruction SNOMED: 523324182 Status: unchanged Assessment/Plan: bp bs pain control abx cbc bmp am Trevor Cabrera DO May 18, 2020 09:25
--- NOTE | 2020-05-18 10:26 | General Progress Note ---
Subjective ROS Limited/Unobtainable: No Allergies: Coded Allergies: PIPERACILLIN (Verified Allergy, Unknown, Rash, 11/27/19) SULFAMETHOXAZOLE (Verified Allergy, Unknown, 11/03/19) TAZOBACTAM (Verified Allergy, Unknown, Rash, 11/27/19) TRIMETHOPRIM (Verified Allergy, Unknown, 11/03/19) Objective Last 24 Hour Vital Signs Date Time Temp Pulse Resp B/P (MAP) Pulse Ox O2 Delivery O2 Flow Rate FiO2 05/18/20 09:00 Room Air 05/18/20 08:00 99.1 84 20 136/72 (93) 96 05/18/20 04:00 98.1 86 18 135/82 (99) 94 05/18/20 00:00 97.8 82 18 140/84 (102) 94 05/17/20 21:15 Room Air 05/17/20 20:00 96.9 87 20 126/80 (95) 93 05/17/20 16:00 97.4 84 19 129/72 (91) 96 05/17/20 12:00 98.3 80 18 128/63 (84) 98 Intake and Output0 05/17/20 05/18/20 19:00 07:00 Intake Total 1355 ml Output Total 400 ml Balance 1355 ml -400 ml IV Total 755 ml Other 600 ml Output Urine Total 400 ml Laboratory Tests 05/18/20 06:30: White Blood Count 10.4, Red Blood Count 3.85L, Hemoglobin 11.9L, Hematocrit 36.4L, Mean Corpuscular Volume 95, Mean Corpuscular Hemoglobin 31.0, Mean Corpuscular Hemoglobin Concent 32.8, Red Cell Distribution Width 14.3, Platelet Count 441, Mean Platelet Volume 5.3L, Neutrophils (%) (Auto) 65.4, Lymphocytes (%) (Auto) 27.4, Monocytes (%) (Auto) 3.7, Eosinophils (%) (Auto) 2.6, Basophils (%) (Auto) 0.8, Sodium Level 139, Potassium Level 4.5, Chloride Level 108H, Carbon Dioxide Level 24, Anion Gap 7, Blood Urea Nitrogen 5L, Creatinine 1.0, Estimat Glomerular Filtration Rate 56.0, Glucose Level 129H, Calcium Level 8.1L Height (Feet): 5 Height (Inches): 1.00 Weight (Pounds): 143 General Appearance: no apparent distress EENT: normal ENT inspection Neck: supple Cardiovascular: normal rate Respiratory/Chest: lungs clear Abdomen: normal bowel sounds, non tender, soft Extremities: non-tender Assessment/Plan Problem List: (1) Kidney calculus ICD Codes: N20.0 - Calculus of kidney SNOMED: 90307046 (2) Abdominal pain ICD Codes: R10.9 - Unspecified abdominal pain SNOMED: 28064641 (3) Confusion ICD Codes: R41.0 - Disorientation, unspecified SNOMED: 840309741 (4) Electrolyte imbalance ICD Codes: E87.8 - Other disorders of electrolyte and fluid balance, not elsewhere classified SNOMED: 983198990 (5) HTN (hypertension) ICD Codes: I10 - Essential (primary) hypertension SNOMED: 90072097 (6) CVA (cerebral vascular accident) ICD Codes: I63.9 - Cerebral infarction, unspecified SNOMED: 045203735 (7) Diabetes ICD Codes: E11.9 - Type 2 diabetes mellitus without complications SNOMED: 80414507 (8) Renal failure ICD Codes: N19 - Unspecified kidney failure SNOMED: 45061637 (9) Cholelithiasis ICD Codes: K80.20 - Calculus of gallbladder without cholecystitis without obstruction SNOMED: 895009092 Status: unchanged Assessment/Plan: diet reg fu surg recs abx for uti psych in put appreciated doing much better hold GI procedures for now Luke Noe MD May 18, 2020 10:26
[2020-05-18 12:00] VITALS: BP 137/82
--- NOTE | 2020-05-18 13:55 | Infectious Diseases Prog Note ---
Assessment/Plan Assessment: Sepsis Abd pain- no evidence fo acute cholecystitis on ABD US -Abd US: Cholelithiasis with gallbladder sludge. No gallbladder wall thickening or pericholecystic fluid. The common bile duct measures 4 mm. Staghorn calculus seen in the right kidney, better identified on CT scan from May 14, 2020. -05/14 CT abd/p w/: Distended gallbladder with adjacent stranding. Findings may represent early acute cholecystitis. Markedly distended stomach with fluid and gas to the level of the proximal duodenum no obstructing lesion identified. Staghorn calculus within the right kidney. No hydronephrosis. UTI R kidney staghorn calculus -05/14 u/a wbc tnct, nit neg, leuk +3; ucx >100k E.coli (R amp, bactrim; otherwise S), 10-20k GNR #2 Afebrile Leukocytosis,SP CVA DM2 CKD HTN SNF resident ([facility]) Plan: -Continue empiric Aztreonam #5/ -ok to discharge on PO Levaquin 500mg qd -05/15 SP CIpro x1, Flagyl x1 -f/u cx -Monitor CBC/CMP, temperatures -Gen sx f/u -aspiration precautions Thank you for this consultation. Will continue to follow along with you. Subjective Allergies: Coded Allergies: PIPERACILLIN (Verified Allergy, Unknown, Rash, 11/27/19) SULFAMETHOXAZOLE (Verified Allergy, Unknown, 11/03/19) TAZOBACTAM (Verified Allergy, Unknown, Rash, 11/27/19) TRIMETHOPRIM (Verified Allergy, Unknown, 11/03/19) afebrile no leukocytosis at RA discharge planning Objective Last 24 Hour Vital Signs Date Time Temp Pulse Resp B/P (MAP) Pulse Ox O2 Delivery O2 Flow Rate FiO2 05/18/20 12:00 98.4 85 18 137/82 (100) 98 05/18/20 09:00 Room Air 05/18/20 08:00 99.1 84 20 136/72 (93) 96 05/18/20 04:00 98.1 86 18 135/82 (99) 94 05/18/20 00:00 97.8 82 18 140/84 (102) 94 05/17/20 21:15 Room Air 05/17/20 20:00 96.9 87 20 126/80 (95) 93 05/17/20 16:00 97.4 84 19 129/72 (91) 96 Height (Feet): 5 Height (Inches): 1.00 Weight (Pounds): 143 GENERAL: Calm in bed, confused CARDIOVASCULAR: RRR, S1, S2 LUNGS: CTAB, No W ABDOMEN: Bowel sounds positive. Soft, nontender, nondistended. Laboratory Tests Test 05/18/20 06:30 White Blood Count 10.4 K/UL (4.8-10.8) Red Blood Count 3.85 M/UL (4.20-5.40) L Hemoglobin 11.9 G/DL (12.0-16.0) L Hematocrit 36.4 % (37.0-47.0) L Mean Corpuscular Volume 95 FL (80-99) Mean Corpuscular Hemoglobin 31.0 PG (27.0-31.0) Mean Corpuscular Hemoglobin Concent 32.8 G/DL (32.0-36.0) Red Cell Distribution Width 14.3 % (11.6-14.8) Platelet Count 441 K/UL (150-450) Mean Platelet Volume 5.3 FL (6.5-10.1) L Neutrophils (%) (Auto) 65.4 % (45.0-75.0) Lymphocytes (%) (Auto) 27.4 % (20.0-45.0) Monocytes (%) (Auto) 3.7 % (1.0-10.0) Eosinophils (%) (Auto) 2.6 % (0.0-3.0) Basophils (%) (Auto) 0.8 % (0.0-2.0) Sodium Level 139 MMOL/L (136-145) Potassium Level 4.5 MMOL/L (3.5-5.1) Chloride Level 108 MMOL/L (98-107) H Carbon Dioxide Level 24 MMOL/L (21-32) Anion Gap 7 mmol/L (5-15) Blood Urea Nitrogen 5 mg/dL (7-18) L Creatinine 1.0 MG/DL (0.55-1.30) Estimat Glomerular Filtration Rate 56.0 mL/min (>60) Glucose Level 129 MG/DL (74-106) H Calcium Level 8.1 MG/DL (8.5-10.1) L Current Medications Medications (Trade) Dose Ordered Sig/Maryam Route PRN Reason Start Time Stop Time Status Last Admin Dose Admin Acetaminophen (Tylenol) 650 mg Q4H PRN RECTAL Temp >100.5 05/14/20 23:30 06/13/20 23:29 Aztreonam 1 gm/ Dextrose 55 ml @ 110 mls/hr EVERY 8 HOURS IVPB 05/15/20 22:00 05/22/20 21:59 05/18/20 06:17 Dextrose (Dextrose 50%) 25 ml Q30M PRN IV Hypoglycemia 05/14/20 23:30 08/12/20 23:29 Dextrose (Dextrose 50%) 50 ml Q30M PRN IV Hypoglycemia 05/14/20 23:30 08/12/20 23:29 Dextrose/ Electrolytes 1,000 ml @ 100 mls/hr Q10H IV 05/15/20 00:30 06/14/20 00:29 05/18/20 08:25 Heparin Sodium (Porcine) (Heparin 5000 units/ml) 5,000 units EVERY 12 HOURS SUBQ 05/15/20 09:30 06/29/20 09:29 05/18/20 08:26 Mirtazapine (Remeron) 15 mg BEDTIME ORAL 05/15/20 21:00 08/13/20 20:59 05/17/20 21:57 Morphine Sulfate (Morphine Sulfate) 2 mg EVERY 3 HOURS PRN IVP Moderate Pain (Pain Scale 4-6) 05/14/20 23:30 05/21/20 23:29 Ondansetron HCl (Zofran) 4 mg Q6H PRN IVP Nausea & Vomiting 05/14/20 23:30 06/13/20 23:29 Pantoprazole (Protonix) 40 mg DAILY IV 05/15/20 09:00 06/14/20 08:59 05/18/20 08:24 Jenna Briseno M.D. May 18, 2020 13:55
--- NOTE | 2020-05-18 14:42 | Surgery Progress Note ---
Surgery Progress Note Subjective Symptoms: improved, tolerating diet, passing flatus, BM Objective Last 24 Hour Vital Signs Date Time Temp Pulse Resp B/P (MAP) Pulse Ox O2 Delivery O2 Flow Rate FiO2 05/18/20 12:00 98.4 85 18 137/82 (100) 98 05/18/20 09:00 Room Air 05/18/20 08:00 99.1 84 20 136/72 (93) 96 05/18/20 04:00 98.1 86 18 135/82 (99) 94 05/18/20 00:00 97.8 82 18 140/84 (102) 94 05/17/20 21:15 Room Air 05/17/20 20:00 96.9 87 20 126/80 (95) 93 05/17/20 16:00 97.4 84 19 129/72 (91) 96 I&O Intake and Output 05/17/20 05/18/20 19:00 07:00 Intake Total 1355 ml Output Total 400 ml Balance 1355 ml -400 ml IV Total 755 ml Other 600 ml Output Urine Total 400 ml Cardiovascular: RSR Respiratory: clear Abdomen: soft, non-tender, present bowel sounds Extremities: no edema, no tenderness, no cyanosis Laboratory Tests Test 05/18/20 06:30 White Blood Count 10.4 K/UL (4.8-10.8) Red Blood Count 3.85 M/UL (4.20-5.40) L Hemoglobin 11.9 G/DL (12.0-16.0) L Hematocrit 36.4 % (37.0-47.0) L Mean Corpuscular Volume 95 FL (80-99) Mean Corpuscular Hemoglobin 31.0 PG (27.0-31.0) Mean Corpuscular Hemoglobin Concent 32.8 G/DL (32.0-36.0) Red Cell Distribution Width 14.3 % (11.6-14.8) Platelet Count 441 K/UL (150-450) Mean Platelet Volume 5.3 FL (6.5-10.1) L Neutrophils (%) (Auto) 65.4 % (45.0-75.0) Lymphocytes (%) (Auto) 27.4 % (20.0-45.0) Monocytes (%) (Auto) 3.7 % (1.0-10.0) Eosinophils (%) (Auto) 2.6 % (0.0-3.0) Basophils (%) (Auto) 0.8 % (0.0-2.0) Sodium Level 139 MMOL/L (136-145) Potassium Level 4.5 MMOL/L (3.5-5.1) Chloride Level 108 MMOL/L (98-107) H Carbon Dioxide Level 24 MMOL/L (21-32) Anion Gap 7 mmol/L (5-15) Blood Urea Nitrogen 5 mg/dL (7-18) L Creatinine 1.0 MG/DL (0.55-1.30) Estimat Glomerular Filtration Rate 56.0 mL/min (>60) Glucose Level 129 MG/DL (74-106) H Calcium Level 8.1 MG/DL (8.5-10.1) L Plan Problems: (1) Confusion (2) Diabetes (3) Kidney calculus (4) Renal failure (5) Electrolyte imbalance (6) Abdominal pain Assessment & Plan: 64F with abdominal pain. afebrile, HD Stable labs noted. ng minimal output since placement no pain now and resolved exam benign. abd soft, nt/nd, bs+ recent BM as per RN trial liquid diet iv fluids iv abx trend labs abd US ordered - noted. no acute inflammation of gb diet as tolerated activity as tolerated will follow with recs thank you d/c planning ABDOMEN: Liver: Unremarkable. Gallbladder and bile ducts: Distended gallbladder with adjacent stranding. Findings may represent early acute cholecystitis. Pancreas: Unremarkable. Spleen: Unremarkable. Adrenals: Unremarkable. Kidneys and ureters: Staghorn calculus within the right kidney. No hydronephrosis. Stomach and bowel: Markedly distended stomach with fluid and gas to the level of the proximal duodenum no obstructing lesion identified. PELVIS: Appendix: Appendix is unremarkable. Bladder: Unremarkable. Reproductive: See below. ABDOMEN and PELVIS: Intraperitoneal space: Unremarkable. Bones/joints: Calcifications of the uterus which may represent degenerative fibroids. No acute fracture. No dislocation. Soft tissues: Unremarkable. Vasculature: Vascular calcifications. Lymph nodes: Unremarkable. IMPRESSION: 1. Distended gallbladder with adjacent stranding. Findings may represent early acute cholecystitis. 2. Markedly distended stomach with fluid and gas to the level of the proximal duodenum no obstructing lesion identified. 3. Staghorn calculus within the right kidney. No hydronephrosis. Liver: The liver is within normal limits, measuring 12.6 cm. Gallbladder: Cholelithiasis with gallbladder sludge. The common bile duct measures 4 mm. Pancreas: The pancreas is grossly within normal limits. Right Kidney: The right kidney measures 9.1 cm. Staghorn calculus seen in the right kidney, better identified on CT scan from May 14, 2020. Left Kidney: The left kidney measures 12.3 cm. No hydronephrosis or nephrolithiasis. Spleen: The spleen measures 10.2 cm. Abdominal Aorta and IVC: The abdominal aorta measures 1.9 cm in AP dimension. The inferior vena cava is within normal limits. IMPRESSION: Cholelithiasis with gallbladder sludge. No gallbladder wall thickening or pericholecystic fluid. The common bile duct measures 4 mm. Staghorn calculus seen in the right kidney, better identified on CT scan from May 14, 2020. (7) HTN (hypertension) (8) CVA (cerebral vascular accident) (9) Fever (10) Anemia (11) Decubitus skin ulcer (12) Malnutrition Humble Sewell May 18, 2020 14:42
--- NOTE | 2020-05-18 15:10 | NUR ---
DISCHARGE PLANNING PATIENT HAS BEEN REFERRED BACK TO [facility] P; [phone] F; [phone]
--- NOTE | 2020-05-18 15:15 | NUR ---
SYSTEMS MECHANIC NOTE DR MOISE GAVE ORDER TO DC BACK TO [facility], CONTINUE LEVAQUIN 500 MG PO X3 DAYS. NOTED AND CARRIED OUT
[2020-05-18 16:00] VITALS: BP 145/90
--- NOTE | 2020-05-18 17:01 | NUR ---
NURSE NOTES: WOUND ASSESSMENT PATIENT AWAKE, ATTEMPTING TO PREVENT SKIN ASSESSMENT. LEFT BUTTOCK WITH NOTED ABRASION. MEASURES 0.3X0.5X0.1CM RIGHT BUTTOCK WITH NOTED OLD SCAR. DRY AND INTACT AT THIS TIME RECOMMEND-KEEP AREA CLEAN AND DRY. APPLY CALAZINE AND COVER WITH OPTIFOAM DRESSING REPLACE EVERY OTHER DAY OR NEEDED. ALSO RECOMMEND: REPOSITION AT LEAST EVERY 2 HOURS OR TOLERATED. ELEVATE HEELS WITH PILLOWS
--- NOTE | 2020-05-18 17:14 | NUR ---
INSURANCE CLINICALS FAXED TO [facility] DIRECT [phone]
--- NOTE | 2020-05-18 18:34 | Psychiatric Progress Note ---
Psychiatry Progress Note Psychiatry Progress Note Subjective the pt is the same episodes agitation Medications Current Medications Medications (Trade) Dose Ordered Sig/Maryam Route PRN Reason Start Time Stop Time Status Last Admin Dose Admin Acetaminophen (Tylenol) 650 mg Q4H PRN RECTAL Temp >100.5 05/14/20 23:30 06/13/20 23:29 Aztreonam 1 gm/ Dextrose 55 ml @ 110 mls/hr EVERY 8 HOURS IVPB 05/15/20 22:00 05/22/20 21:59 05/18/20 14:13 Dextrose (Dextrose 50%) 25 ml Q30M PRN IV Hypoglycemia 05/14/20 23:30 08/12/20 23:29 Dextrose (Dextrose 50%) 50 ml Q30M PRN IV Hypoglycemia 05/14/20 23:30 08/12/20 23:29 Dextrose/ Electrolytes 1,000 ml @ 100 mls/hr Q10H IV 05/15/20 00:30 06/14/20 00:29 05/18/20 08:25 Heparin Sodium (Porcine) (Heparin 5000 units/ml) 5,000 units EVERY 12 HOURS SUBQ 05/15/20 09:30 06/29/20 09:29 05/18/20 08:26 Mirtazapine (Remeron) 15 mg BEDTIME ORAL 05/15/20 21:00 08/13/20 20:59 05/17/20 21:57 Morphine Sulfate (Morphine Sulfate) 2 mg EVERY 3 HOURS PRN IVP Moderate Pain (Pain Scale 4-6) 05/14/20 23:30 05/21/20 23:29 Ondansetron HCl (Zofran) 4 mg Q6H PRN IVP Nausea & Vomiting 05/14/20 23:30 06/13/20 23:29 Pantoprazole (Protonix) 40 mg DAILY IV 05/15/20 09:00 06/14/20 08:59 05/18/20 08:24 Neurological/Psychiatric: Reports: anxiety, depressed, emotional problems Allergies: Coded Allergies: PIPERACILLIN (Verified Allergy, Unknown, Rash, 11/27/19) SULFAMETHOXAZOLE (Verified Allergy, Unknown, 11/03/19) TAZOBACTAM (Verified Allergy, Unknown, Rash, 11/27/19) TRIMETHOPRIM (Verified Allergy, Unknown, 11/03/19) Objective Data Height (Feet): 5 Height (Inches): 1.00 Weight (Pounds): 143 General Appearance: no apparent distress Additional Comments: awake, confused, disoriented. Mood is neutral to anxious. Affect is flat. Thought process, there is a paucity of thought content. Thought content, no suicidal or homicidal ideation. Cognition is impaired. Insight and judgment is impaired. Assessment/Plan [place] I: [place] I Dementia with behavior disturbance. [place] II Deferred. [place] III Failure to thrive. [place] IV Low. [place] V 25 PLAN: 1. We will start the patient on [id number] mg at bedtime. 2. Provide the patient with reality orientation. Status: unchanged Status Narrative [place] I Dementia with behavior disturbance. [place] II Deferred. [place] III Failure to thrive. [place] IV Low. [place] V 25 PLAN: 1. We will start the patient on Rmofrch00 mg at bedtime. 2. Provide the patient with reality orientation. Assessment/Plan: [place] I Dementia with behavior disturbance. [place] II Deferred. [place] III Failure to thrive. [place] IV Low. [place] V 25 PLAN: 1. We will start the patient on [id number] mg at bedtime. 2. Provide the patient with reality orientation. Anu Hubbard MD May 18, 2020 18:34
--- NOTE | 2020-05-18 18:57 | NUR ---
NURSE NOTES: patient pulled out her IV. new IV placed on left wrist. pictures taken prior to discharge. still awaiting covid results.
--- NOTE | 2020-05-18 19:30 | NUR ---
NURSE NOTES: Patient in bed, on room air, no SOB noted. Pt removed IV in front of RN while on rounds. Educated patient and reorientation done. Instructed to use call light for assistance. Call light and needs in reach. Bed in lowest, lock engaged and alarm on. Will continue plan of care.
--- NOTE | 2020-05-18 19:37 | NUR ---
NURSE HAND-OFF: Important Events on Shift:covid test negative Patient Status: stable Diet: regular Pending Orders: n/a Pending Results/Labs:n/a Pending MD notification:n/a Latest Vital Signs: Temperature 97.8 , Pulse 93 , B/P 145 /90 , Respiratory Rate 20 , O2 SAT 98 , Room Air, O2 Flow Rate . Vital Sign Comment: stable Latest Waite Fall Score: 35 Fall Risk: Medium Risk Safety Measures: Call light Within Reach, Bed Alarm Zone 1, Side Rails Side Rails x2, Bed position Low and Locked. Fall Precautions: Yellow Socks Yellow Gown Door Sign Patient Fall Education Report given to RACHEL Bowman.
[2020-05-18 20:00] VITALS: BP 123/81
--- NOTE | 2020-05-18 21:00 | NUR ---
NURSE NOTES: Obtained order for bilateral soft wrist restraints, applied and documented. CHarge nurse was able to get IV access on right hand and continued IVF as ordered. Will continue to monitor.
[2020-05-19] VITALS: BP 137/85
[2020-05-19 04:00] VITALS: BP 131/79
[2020-05-19] MEDS: D5 1/2NS w/KCl 20mEq 1,000 ML IV SCH (04:37)
[2020-05-19] MEDS: Aztreonam 1gm/D5W 55ml IVPB SCH ×2 (04:56)
--- NOTE | 2020-05-19 06:41 | NUR ---
NURSE HAND-OFF: Important Events on Shift: Patient removed IV, Restraints applied with order. Patient Status: Stable Diet: Regular Pending Orders: bmp, cbc Pending Results/Labs: bmp, cbc Pending MD notification: Latest Vital Signs: Temperature 98.1 , Pulse 87 , B/P 131 /79 , Respiratory Rate 16 , O2 SAT 98 , Room Air, O2 Flow Rate . Vital Sign Comment: Latest Waite Fall Score: 35 Fall Risk: Medium Risk Safety Measures: Call light Within Reach, Bed Alarm Zone 1, Side Rails Side Rails x2, Bed position Low and Locked. Fall Precautions: Yellow Socks Yellow Gown Door Sign Patient Fall Education
[2020-05-19 07:02] LABS: EOSINOPHILS % (AUTO) 2.4 % (0.0-3.0); HEMATOCRIT 39.6 % (37.0-47.0); HEMOGLOBIN 12.2 G/DL (12.0-16.0); LYMPHOCYTES % (AUTO) 22.6 % (20.0-45.0); MEAN CORPUSCULAR VOLUME 99 FL (80-99); MONOCYTES % (AUTO) 4.4 % (1.0-10.0); NEUTROPHILS % (AUTO) 69.6 % (45.0-75.0); PLATELET COUNT 500 K/UL (150-450); RED CELL DISTRIBUTION WIDTH 14.8 % (11.6-14.8); WHITE BLOOD COUNT 11.2 K/UL (4.8-10.8)
--- NOTE | 2020-05-19 07:04 | NUR ---
HAND-OFF: Report given to RACHEL Villalobos.
--- NOTE | 2020-05-19 07:08 | General Progress Note ---
Subjective ROS Limited/Unobtainable: No Allergies: Coded Allergies: PIPERACILLIN (Verified Allergy, Unknown, Rash, 11/27/19) SULFAMETHOXAZOLE (Verified Allergy, Unknown, 11/03/19) TAZOBACTAM (Verified Allergy, Unknown, Rash, 11/27/19) TRIMETHOPRIM (Verified Allergy, Unknown, 11/03/19) Objective Last 24 Hour Vital Signs Date Time Temp Pulse Resp B/P (MAP) Pulse Ox O2 Delivery O2 Flow Rate FiO2 05/19/20 04:00 98.1 87 16 131/79 (96) 98 05/19/20 00:00 98.2 84 17 137/85 (102) 98 05/18/20 21:00 Room Air 05/18/20 20:00 98.1 84 20 123/81 (95) 98 05/18/20 16:00 97.8 93 20 145/90 (108) 98 05/18/20 12:00 98.4 85 18 137/82 (100) 98 05/18/20 09:00 Room Air 05/18/20 08:00 99.1 84 20 136/72 (93) 96 Intake and Output 05/18/20 05/19/20 19:00 07:00 Intake Total 360 ml 1060 ml Output Total 650 ml 800 ml Balance -290 ml 260 ml Intake Oral 360 ml 150 ml IV Total 910 ml Output Urine Total 650 ml 800 ml # Bowel Movements 1 Laboratory Tests 05/19/20 05:50: White Blood Count 11.2H, Red Blood Count 4.00L, Hemoglobin 12.2, Hematocrit 39.6, Mean Corpuscular Volume 99, Mean Corpuscular Hemoglobin 30.5, Mean Corpuscular Hemoglobin Concent 30.8L, Red Cell Distribution Width 14.8, Platelet Count 500H, Mean Platelet Volume 5.2L, Neutrophils (%) (Auto) 69.6, Lymphocytes (%) (Auto) 22.6, Monocytes (%) (Auto) 4.4, Eosinophils (%) (Auto) 2.4, Basophils (%) (Auto) 1.0, Sodium Level [Pending], Potassium Level [Pending], Chloride Level [Pending], Carbon Dioxide Level [Pending], Blood Urea Nitrogen [Pending], Creatinine [Pending], Estimat Glomerular Filtration Rate [Pending], Glucose Level [Pending], Calcium Level [Pending] Height (Feet): 5 Height (Inches): 1.00 Weight (Pounds): 143 General Appearance: no apparent distress EENT: normal ENT inspection Neck: supple Cardiovascular: normal rate Respiratory/Chest: lungs clear Abdomen: normal bowel sounds, non tender, soft Extremities: non-tender Assessment/Plan Problem List: (1) Kidney calculus ICD Codes: N20.0 - Calculus of kidney SNOMED: 34054515 (2) Abdominal pain ICD Codes: R10.9 - Unspecified abdominal pain SNOMED: 27933630 (3) Confusion ICD Codes: R41.0 - Disorientation, unspecified SNOMED: 509888067 (4) Electrolyte imbalance ICD Codes: E87.8 - Other disorders of electrolyte and fluid balance, not elsewhere classified SNOMED: 959826083 (5) HTN (hypertension) ICD Codes: I10 - Essential (primary) hypertension SNOMED: 37047203 (6) CVA (cerebral vascular accident) ICD Codes: I63.9 - Cerebral infarction, unspecified SNOMED: 536611124 (7) Diabetes ICD Codes: E11.9 - Type 2 diabetes mellitus without complications SNOMED: 52742237 (8) Renal failure ICD Codes: N19 - Unspecified kidney failure SNOMED: 94900696 (9) Cholelithiasis ICD Codes: K80.20 - Calculus of gallbladder without cholecystitis without obstruction SNOMED: 378349697 Status: unchanged Assessment/Plan: pulled her IV back on restrains fu psych diet reg fu surg recs abx for uti doing much better hold GI procedures for now Luke Noe MD May 19, 2020 07:08
[2020-05-19 07:44] LABS: CALCIUM 8.4 MG/DL (8.5-10.1)
[2020-05-19 08:00] VITALS: BP 128/76
[2020-05-19] MEDS: Pantoprazole Inj IV SCH (08:47)
[2020-05-19] MEDS: Heparin 5000 units/ml inj SUBQ SCH (08:51)
--- NOTE | 2020-05-19 10:41 | Surgery Progress Note ---
Surgery Progress Note Subjective Additional Comments afebrile, HD stable comfortable n on/v labs noted covid neg Objective Last 24 Hour Vital Signs Date Time Temp Pulse Resp B/P (MAP) Pulse Ox O2 Delivery O2 Flow Rate FiO2 05/19/20 08:00 97.7 79 18 128/76 (93) 98 05/19/20 04:00 98.1 87 16 131/79 (96) 98 05/19/20 00:00 98.2 84 17 137/85 (102) 98 05/18/20 21:00 Room Air 05/18/20 20:00 98.1 84 20 123/81 (95) 98 05/18/20 16:00 97.8 93 20 145/90 (108) 98 05/18/20 12:00 98.4 85 18 137/82 (100) 98 I&O Intake and Output 05/18/20 05/19/20 19:00 07:00 Intake Total 360 ml 1060 ml Output Total 650 ml 800 ml Balance -290 ml 260 ml Intake Oral 360 ml 150 ml IV Total 910 ml Output Urine Total 650 ml 800 ml # Bowel Movements 1 Dressing: other Wound: other Cardiovascular: RSR Respiratory: decreased breath sounds Abdomen: soft, non-tender, present bowel sounds Extremities: no tenderness, no cyanosis Laboratory Tests Test 05/19/20 05:50 White Blood Count 11.2 K/UL (4.8-10.8) H Red Blood Count 4.00 M/UL (4.20-5.40) L Hemoglobin 12.2 G/DL (12.0-16.0) Hematocrit 39.6 % (37.0-47.0) Mean Corpuscular Volume 99 FL (80-99) Mean Corpuscular Hemoglobin 30.5 PG (27.0-31.0) Mean Corpuscular Hemoglobin Concent 30.8 G/DL (32.0-36.0) L Red Cell Distribution Width 14.8 % (11.6-14.8) Platelet Count 500 K/UL (150-450) H Mean Platelet Volume 5.2 FL (6.5-10.1) L Neutrophils (%) (Auto) 69.6 % (45.0-75.0) Lymphocytes (%) (Auto) 22.6 % (20.0-45.0) Monocytes (%) (Auto) 4.4 % (1.0-10.0) Eosinophils (%) (Auto) 2.4 % (0.0-3.0) Basophils (%) (Auto) 1.0 % (0.0-2.0) Sodium Level 137 MMOL/L (136-145) Potassium Level 4.0 MMOL/L (3.5-5.1) Chloride Level 105 MMOL/L (98-107) Carbon Dioxide Level 25 MMOL/L (21-32) Anion Gap 7 mmol/L (5-15) Blood Urea Nitrogen 5 mg/dL (7-18) L Creatinine 1.0 MG/DL (0.55-1.30) Estimat Glomerular Filtration Rate 56.0 mL/min (>60) Glucose Level 118 MG/DL (74-106) H Calcium Level 8.4 MG/DL (8.5-10.1) L Plan Problems: (1) Confusion (2) Diabetes (3) Kidney calculus (4) Renal failure (5) Electrolyte imbalance (6) Abdominal pain Assessment & Plan: 64F with abdominal pain. afebrile, HD Stable labs noted. ng minimal output since placement no pain now and resolved exam benign. abd soft, nt/nd, bs+ recent BM as per RN trial liquid diet iv fluids iv abx trend labs abd US ordered - noted. no acute inflammation of gb diet as tolerated activity as tolerated will follow with recs thank you d/c planning ABDOMEN: Liver: Unremarkable. Gallbladder and bile ducts: Distended gallbladder with adjacent stranding. Findings may represent early acute cholecystitis. Pancreas: Unremarkable. Spleen: Unremarkable. Adrenals: Unremarkable. Kidneys and ureters: Staghorn calculus within the right kidney. No hydronephrosis. Stomach and bowel: Markedly distended stomach with fluid and gas to the level of the proximal duodenum no obstructing lesion identified. PELVIS: Appendix: Appendix is unremarkable. Bladder: Unremarkable. Reproductive: See below. ABDOMEN and PELVIS: Intraperitoneal space: Unremarkable. Bones/joints: Calcifications of the uterus which may represent degenerative fibroids. No acute fracture. No dislocation. Soft tissues: Unremarkable. Vasculature: Vascular calcifications. Lymph nodes: Unremarkable. IMPRESSION: 1. Distended gallbladder with adjacent stranding. Findings may represent early acute cholecystitis. 2. Markedly distended stomach with fluid and gas to the level of the proximal duodenum no obstructing lesion identified. 3. Staghorn calculus within the right kidney. No hydronephrosis. Liver: The liver is within normal limits, measuring 12.6 cm. Gallbladder: Cholelithiasis with gallbladder sludge. The common bile duct measures 4 mm. Pancreas: The pancreas is grossly within normal limits. Right Kidney: The right kidney measures 9.1 cm. Staghorn calculus seen in the right kidney, better identified on CT scan from May 14, 2020. Left Kidney: The left kidney measures 12.3 cm. No hydronephrosis or nephrolithiasis. Spleen: The spleen measures 10.2 cm. Abdominal Aorta and IVC: The abdominal aorta measures 1.9 cm in AP dimension. The inferior vena cava is within normal limits. IMPRESSION: Cholelithiasis with gallbladder sludge. No gallbladder wall thickening or pericholecystic fluid. The common bile duct measures 4 mm. Staghorn calculus seen in the right kidney, better identified on CT scan from May 14, 2020. (7) HTN (hypertension) (8) CVA (cerebral vascular accident) (9) Fever (10) Anemia (11) Decubitus skin ulcer (12) Malnutrition Humble Sewell May 19, 2020 10:41
--- NOTE | 2020-05-19 11:08 | NUR ---
*-*DISCHARGE PLANNED*-* PATIENT HAS BEEN ACCEPTED AND DISCHARGE BACK TO: [facility] P: [phone] FOR NURSE TO NURSE REPORT ROOM# 127.[facility] BODY WELDER BEING SET UP THROUGH CALL A CAR REQUESTING FOR NEXT AVAILABLE, POSSIBLY FOR 12PM OR 12:30PM, [place] MIRANDA, STATED WILL CALL BACK TO CONFIRM TIME ETA. PLACED A CALL TO PATIENT DAUGHTER, KETAN GONSALVES, AND BERNARD ALFARO, NO ANSWER, LEFT VOICE MESSAGE IN REGARDS TO DISCHARGE PLAN.
[2020-05-19 12:00] VITALS: BP 120/82
--- NOTE | 2020-05-19 12:15 | NUR ---
*-*DISCHARGE PLANNED*-* PATIENT HAS BEEN ACCEPTED AND DISCHARGE BACK TO: [facility] P: [phone] FOR NURSE TO NURSE REPORT ROOM# 127.[facility] BEING SET UP THROUGH CALL A EILEEN SCOTT BETWEEN 1PM & 1:30PM, S/W [place] [id number]. PLACED A CALL TO PATIENT DAUGHTER, KETAN GONSALVES, AND BERNARD ALFARO, NO ANSWER, LEFT VOICE
--- NOTE | 2020-05-19 12:23 | NUR ---
*-*DISCHARGE PLANNED*-* PATIENT HAS BEEN ACCEPTED AND DISCHARGE BACK TO: [facility] P: [phone] FOR NURSE TO NURSE REPORT ROOM# 127.[facility] PLANT MACHINIST BEING SET UP THROUGH CALL A EILEEN SCOTT BETWEEN 1PM & 1:30PM, S/W [place] [id number]. PLACED A CALL TO PATIENT DAUGHTER, KETAN GONSALVES, AND BERNARD ALFARO, NO ANSWER, LEFT VOICE MESSAGE IN REGARDS TO DISCHARGE PLAN.
--- NOTE | 2020-05-19 12:24 | NUR ---
*-*DISCHARGE PLANNED*-* PATIENT HAS BEEN ACCEPTED AND [facility]CHARGE BACK TO: [facility] P: [phone] FOR NURSE TO NURSE REPORT ROOM# 127.[facility] TECHNICAL PROGRAMS MANAGER BEING SET UP THROUGH CALL A EILEEN SCOTT BETWEEN 1PM & 1:30PM, S/W [place] [id number]. PLACED A CALL TO PATIENT DAUGHTER, KETAN GONSALVES, AND BERNARD ALFARO, NO ANSWER, LEFT VOICE MESSAGE IN REGARDS TO DISCHARGE PLAN.
--- NOTE | 2020-05-19 12:29 | General Progress Note ---
Subjective Constitutional: Reports: weakness Allergies: Coded Allergies: PIPERACILLIN (Verified Allergy, Unknown, Rash, 11/27/19) SULFAMETHOXAZOLE (Verified Allergy, Unknown, 11/03/19) TAZOBACTAM (Verified Allergy, Unknown, Rash, 11/27/19) TRIMETHOPRIM (Verified Allergy, Unknown, 11/03/19) All Systems: reviewed and negative except above Subjective calm in bed Objective Last 24 Hour Vital Signs Date Time Temp Pulse Resp B/P (MAP) Pulse Ox O2 Delivery O2 Flow Rate FiO2 05/19/20 09:00 Room Air 05/19/20 08:00 97.7 79 18 128/76 (93) 98 05/19/20 04:00 98.1 87 16 131/79 (96) 98 05/19/20 00:00 98.2 84 17 137/85 (102) 98 05/18/20 21:00 Room Air 05/18/20 20:00 98.1 84 20 123/81 (95) 98 05/18/20 16:00 97.8 93 20 145/90 (108) 98 Intake and Output 05/18/20 05/19/20 19:00 07:00 Intake Total 360 ml 1160 ml Output Total 650 ml 800 ml Balance -290 ml 360 ml Intake Oral 360 ml 150 ml IV Total 1010 ml Output Urine Total 650 ml 800 ml # Bowel Movements 1 Laboratory Tests 05/19/20 05:50: White Blood Count 11.2H, Red Blood Count 4.00L, Hemoglobin 12.2, Hematocrit 39.6, Mean Corpuscular Volume 99, Mean Corpuscular Hemoglobin 30.5, Mean Corpuscular Hemoglobin Concent 30.8L, Red Cell Distribution Width 14.8, Platelet Count 500H, Mean Platelet Volume 5.2L, Neutrophils (%) (Auto) 69.6, Lymphocytes (%) (Auto) 22.6, Monocytes (%) (Auto) 4.4, Eosinophils (%) (Auto) 2.4, Basophils (%) (Auto) 1.0, Sodium Level 137, Potassium Level 4.0, Chloride Level 105, Carbon Dioxide Level 25, Anion Gap 7, Blood Urea Nitrogen 5L, Creatinine 1.0, Estimat Glomerular Filtration Rate 56.0, Glucose Level 118H, Calcium Level 8.4L Height (Feet): 5 Height (Inches): 1.00 Weight (Pounds): 143 General Appearance: lethargic EENT: normal ENT inspection Neck: normal alignment Cardiovascular: normal peripheral pulses, normal rate, regular rhythm Respiratory/Chest: chest wall non-tender, lungs clear, normal breath sounds Abdomen: normal bowel sounds, non tender, soft Extremities: normal inspection Edema: no edema noted Arm (L), no edema noted Arm (R), no edema noted Leg (L), no edema noted Leg (R), no edema noted Pedal (L), no edema noted Pedal (R), no edema noted Generalized Neurologic: motor weakness Skin: normal pigmentation, warm/dry Assessment/Plan Problem List: (1) Confusion ICD Codes: R41.0 - Disorientation, unspecified SNOMED: 708306018 (2) Diabetes ICD Codes: E11.9 - Type 2 diabetes mellitus without complications SNOMED: 18302604 (3) Renal failure ICD Codes: N19 - Unspecified kidney failure SNOMED: 42625276 (4) Kidney calculus ICD Codes: N20.0 - Calculus of kidney SNOMED: 87854262 (5) Abdominal pain ICD Codes: R10.9 - Unspecified abdominal pain SNOMED: 28925662 (6) HTN (hypertension) ICD Codes: I10 - Essential (primary) hypertension SNOMED: 21943432 (7) CVA (cerebral vascular accident) ICD Codes: I63.9 - Cerebral infarction, unspecified SNOMED: 890192242 (8) Malnutrition ICD Codes: E46 - Unspecified protein-calorie malnutrition SNOMED: 61883499 (9) Cholelithiasis ICD Codes: K80.20 - Calculus of gallbladder without cholecystitis without obstruction SNOMED: 288670627 Status: unchanged Assessment/Plan: bp bs pain control abx cbc bmp am Trevor Cabrera DO May 19, 2020 12:29
--- NOTE | 2020-05-19 12:42 | NUR ---
NURSE NOTES: Gave report to RACHEL Triplett at [facility]. Due to patients insurance a different ambulance company is required and peanut picker time is now 1600.
--- NOTE | 2020-05-19 12:43 | NUR ---
*-*DISCHARGE PLANNED*-* PATIENT HAS BEEN ACCEPTED AND DISCHARGE BACK TO: [facility] P: [phone] FOR NURSE TO NURSE REPORT ROOM# 127.C [facility] AUTHORIZATION REPRESENTATIVE BEING SET UP THROUGH [facility] , [facility]ONE[facility] ETA IS AT 4PM S/W [place] [id number].
--- NOTE | 2020-05-19 13:10 | Infectious Diseases Prog Note ---
Assessment/Plan Assessment: Sepsis Abd pain- no evidence fo acute cholecystitis on ABD US -Abd US: Cholelithiasis with gallbladder sludge. No gallbladder wall thickening or pericholecystic fluid. The common bile duct measures 4 mm. Staghorn calculus seen in the right kidney, better identified on CT scan from May 14, 2020. -05/14 CT abd/p w/: Distended gallbladder with adjacent stranding. Findings may represent early acute cholecystitis. Markedly distended stomach with fluid and gas to the level of the proximal duodenum no obstructing lesion identified. Staghorn calculus within the right kidney. No hydronephrosis. UTI R kidney staghorn calculus -05/14 u/a wbc tnct, nit neg, leuk +3; ucx >100k E.coli (R amp, bactrim; otherwise S), 10-20k P. mirablis (S levaquin) Afebrile Leukocytosis,mild recurrent CVA DM2 CKD HTN SNF resident ([facility]) Plan: -Continue empiric Aztreonam #6/7 -ok to discharge on PO Levaquin 500mg qd -05/15 SP CIpro x1, Flagyl x1 -f/u cx -Monitor CBC/CMP, temperatures -Gen sx f/u -aspiration precautions Thank you for this consultation. Will continue to follow along with you. Subjective Allergies: Coded Allergies: PIPERACILLIN (Verified Allergy, Unknown, Rash, 11/27/19) SULFAMETHOXAZOLE (Verified Allergy, Unknown, 11/03/19) TAZOBACTAM (Verified Allergy, Unknown, Rash, 11/27/19) TRIMETHOPRIM (Verified Allergy, Unknown, 11/03/19) afebrile mild leukocytosis discharge planning Objective Last 24 Hour Vital Signs Date Time Temp Pulse Resp B/P (MAP) Pulse Ox O2 Delivery O2 Flow Rate FiO2 05/19/20 12:00 99.0 78 18 120/82 (95) 99 05/19/20 09:00 Room Air 05/19/20 08:00 97.7 79 18 128/76 (93) 98 05/19/20 04:00 98.1 87 16 131/79 (96) 98 05/19/20 00:00 98.2 84 17 137/85 (102) 98 05/18/20 21:00 Room Air 05/18/20 20:00 98.1 84 20 123/81 (95) 98 05/18/20 16:00 97.8 93 20 145/90 (108) 98 Height (Feet): 5 Height (Inches): 1.00 Weight (Pounds): 143 GENERAL: Calm in bed, confused CARDIOVASCULAR: RRR, S1, S2 LUNGS: CTAB, No W ABDOMEN: Bowel sounds positive. Soft, nontender, nondistended. Microbiology Date/Time Source Procedure Growth Status 05/18/20 15:35 Nasopharynx SARS-CoV-2 RdRp Gene Assay - Final Complete Laboratory Tests Test 05/19/20 05:50 White Blood Count 11.2 K/UL (4.8-10.8) H Red Blood Count 4.00 M/UL (4.20-5.40) L Hemoglobin 12.2 G/DL (12.0-16.0) Hematocrit 39.6 % (37.0-47.0) Mean Corpuscular Volume 99 FL (80-99) Mean Corpuscular Hemoglobin 30.5 PG (27.0-31.0) Mean Corpuscular Hemoglobin Concent 30.8 G/DL (32.0-36.0) L Red Cell Distribution Width 14.8 % (11.6-14.8) Platelet Count 500 K/UL (150-450) H Mean Platelet Volume 5.2 FL (6.5-10.1) L Neutrophils (%) (Auto) 69.6 % (45.0-75.0) Lymphocytes (%) (Auto) 22.6 % (20.0-45.0) Monocytes (%) (Auto) 4.4 % (1.0-10.0) Eosinophils (%) (Auto) 2.4 % (0.0-3.0) Basophils (%) (Auto) 1.0 % (0.0-2.0) Sodium Level 137 MMOL/L (136-145) Potassium Level 4.0 MMOL/L (3.5-5.1) Chloride Level 105 MMOL/L (98-107) Carbon Dioxide Level 25 MMOL/L (21-32) Anion Gap 7 mmol/L (5-15) Blood Urea Nitrogen 5 mg/dL (7-18) L Creatinine 1.0 MG/DL (0.55-1.30) Estimat Glomerular Filtration Rate 56.0 mL/min (>60) Glucose Level 118 MG/DL (74-106) H Calcium Level 8.4 MG/DL (8.5-10.1) L Current Medications Medications (Trade) Dose Ordered Sig/Maryam Route PRN Reason Start Time Stop Time Status Last Admin Dose Admin Acetaminophen (Tylenol) 650 mg Q4H PRN RECTAL Temp >100.5 05/14/20 23:30 06/13/20 23:29 Aztreonam 1 gm/ Dextrose 55 ml @ 110 mls/hr EVERY 8 HOURS IVPB 05/15/20 22:00 05/22/20 21:59 05/19/20 04:56 Dextrose (Dextrose 50%) 25 ml Q30M PRN IV Hypoglycemia 05/14/20 23:30 08/12/20 23:29 Dextrose (Dextrose 50%) 50 ml Q30M PRN IV Hypoglycemia 05/14/20 23:30 08/12/20 23:29 Dextrose/ Electrolytes 1,000 ml @ 100 mls/hr Q10H IV 05/15/20 00:30 06/14/20 00:29 05/19/20 04:37 Heparin Sodium (Porcine) (Heparin 5000 units/ml) 5,000 units EVERY 12 HOURS SUBQ 05/15/20 09:30 06/29/20 09:29 05/19/20 08:51 Mirtazapine (Remeron) 15 mg BEDTIME ORAL 05/15/20 21:00 08/13/20 20:59 05/18/20 21:26 Morphine Sulfate (Morphine Sulfate) 2 mg EVERY 3 HOURS PRN IVP Moderate Pain (Pain Scale 4-6) 05/14/20 23:30 05/21/20 23:29 Ondansetron HCl (Zofran) 4 mg Q6H PRN IVP Nausea & Vomiting 05/14/20 23:30 06/13/20 23:29 Pantoprazole (Protonix) 40 mg DAILY IV 05/15/20 09:00 06/14/20 08:59 05/19/20 08:47 Jenna Briseno M.D. May 19, 2020 13:10
[2020-05-19 16:00] VITALS: BP 114/75
--- NOTE | 2020-05-19 16:20 | NUR ---
NURSE NOTES: patient was discharged back to [facility] at 1620. picked up via ambulance and escorted by 2 medical records supervisor. patient was AOx1, no pain or respiratory distress. IV was taken out, no bleeding or swelling. Pictures of skin were taken and uploaded. Patient left with transfer packet and she had no belongings.
--- NOTE | 2020-05-19 23:10 | Psychiatric Progress Note ---
Psychiatry Progress Note Psychiatry Progress Note Subjective the pt is the same episodes agitation Neurological/Psychiatric: Reports: anxiety, depressed, emotional problems Allergies: Coded Allergies: PIPERACILLIN (Verified Allergy, Unknown, Rash, 11/27/19) SULFAMETHOXAZOLE (Verified Allergy, Unknown, 11/03/19) TAZOBACTAM (Verified Allergy, Unknown, Rash, 11/27/19) TRIMETHOPRIM (Verified Allergy, Unknown, 11/03/19) Objective Data Height (Feet): 5 Height (Inches): 1.00 Weight (Pounds): 143 General Appearance: WD/WN, no apparent distress, alert Additional Comments: awake, confused, disoriented. Mood is neutral to anxious. Affect is flat. Thought process, there is a paucity of thought content. Thought content, no suicidal or homicidal ideation. Cognition is impaired. Insight and judgment is impaired. Assessment/Plan Calamus I: Calamus I Dementia with behavior disturbance. Calamus II Deferred. Calamus III Failure to thrive. Calamus IV Low. Calamus V 25 PLAN: 1. We will start the patient on [id number] mg at bedtime. 2. Provide the patient with reality orientation. Status: unchanged Status Narrative Calamus I Dementia with behavior disturbance. Calamus II Deferred. Calamus III Failure to thrive. Calamus IV Low. Calamus V 25 PLAN: 1. We will start the patient on [id number] mg at bedtime. 2. Provide the patient with reality orientation. Assessment/Plan: Calamus I Dementia with behavior disturbance. Calamus II Deferred. Calamus III Failure to thrive. Calamus IV Low. Calamus V 25 PLAN: 1. We will start the patient on [id number] mg at bedtime. 2. Provide the patient with reality orientation. Anu Hubbard MD May 19, 2020 23:10
--- NOTE | 2020-05-20 04:11 | Cardiology Report ---
APPROVED REPORT EKG Measurement Heart [id number] <Conclusion> Sinus tachycardia Possible Inferior infarct, age undetermined Abnormal ECG
--- NOTE | 2020-05-20 11:12 | NUR ---
INSURANCE CLINICALS FAXED TO [facility] DIRECT [phone]
--- NOTE | 2020-05-21 06:52 | Emergency Room Report ---
History of Present Illness General Chief Complaint: Abdominal Pain Source: Patient, Medical Record Present Illness HPI Patient is a 64-year-old female brought in by [facility] for increased abdominal distention and vomiting. Prior history of psychiatric disease. Patient had previous conservatorship. Had not been having any Hematemesis or bloody stools. no recent fever. History is markedly limited by patient being a poor historian. Allergies: Coded Allergies: PIPERACILLIN (Verified Allergy, Unknown, Rash, 11/27/19) SULFAMETHOXAZOLE (Verified Allergy, Unknown, 11/03/19) TAZOBACTAM (Verified Allergy, Unknown, Rash, 11/27/19) TRIMETHOPRIM (Verified Allergy, Unknown, 11/03/19) COVID-19 Screening Contact w/high risk pt: No Recent Travel to affected area: No Experienced COVID-19 symptoms?: No COVID-19 symptoms experienced: Fever (T>100.4F or >38C), Cough COVID-19 Testing performed HOME PERFORMANCE CONSULTANT: No Patient History Past Medical History: see triage record Last Menstrual Period: na Reviewed Nursing Documentation: PMH: Agreed; PSxH: Agreed Nursing Documentation-PMH Past Medical History Deferred: Pt Cognitively Impaired Past Medical History: No History, Except For Hx Cardiac Problems: Yes Hx Hypertension: Yes Hx Diabetes: Yes Hx Cancer: No Hx Gastrointestinal Problems: Yes Hx Neurological Problems: Yes Hx Cerebrovascular Accident: Yes Hx Dementia: Yes Review of Systems All Other Systems: negative except mentioned in HPI Physical Exam Vital Signs Date Time Temp Pulse Resp B/P (MAP) Pulse Ox O2 Delivery O2 Flow Rate FiO2 05/17/20 08:00 98.3 62 18 122/72 (89) 97 05/17/20 09:00 Room Air Sp02 EP Interpretation: reviewed, normal General Appearance: normal inspection, alert, Chronically Ill Head: atraumatic ENT: normal ENT inspection, hearing grossly normal, normal voice Neck: normal inspection, full range of motion, supple, no bony tend Respiratory: normal inspection, lungs clear, normal breath sounds, no respiratory distress, no retraction, no wheezing Cardiovascular #1: regular rate, rhythm, no edema Gastrointestinal: tenderness, other - Distended Genitourinary: no CVA tenderness Musculoskeletal: other - Decreased range of motion to the extremities. Neurologic: alert, responsive, speech normal, normal inspection Psychiatric: other - Pill-rolling tremor Skin: no rash Medical Decision Making Diagnostic Impression: Primary Impression: Abdominal pain Additional Impressions: Kidney calculus Cholelithiasis ER Course Patient presented for increased abdominal pain. Differential diagnosis include was not limited to bowel obstruction, kidney stone, cholecystitis, fecal impaction among others. Because of complexity of patient's case laboratory tests and imaging studies were ordered. Patient was noted to have significant abdominal distention. CT imaging showed markedly dilated stomach with air-fluid levels as well as staghorn calculus. See radiology report for full details. Patient's initial blood count was somewhat elevated. Patient is initial BUN/creatinine was also somewhat elevated. Patient was started on IV fluids. Urinalysis showed some evidence of urinary infection. Surgery consult was obtained. Dr. Sewell recommended NG tube placement with large amount of initial output. Dr. Trevor Cabrera was contacted for inpatient management. Last Vital Signs Date Time Temp Pulse Resp B/P (MAP) Pulse Ox O2 Delivery O2 Flow Rate FiO2 05/19/20 16:00 97.8 81 18 114/75 (88) 98 05/19/20 09:00 Room Air Status: improved Disposition: ADMITTED INPATIENT Condition: Stable Referrals: Trevor Cabrera DO (PCP) Patient Instructions: Abdominal Pain, Adult, [id number], Small Bowel Obstruction Vladimir Burt MD May 21, 2020 06:52
--- NOTE | 2020-05-21 13:25 | Discharge Summary ---
Discharge Summary Discharge Summary _ DATE OF ADMISSION: 05/15/2020 DATE OF DISCHARGE: 05/19/2020 DISCHARGED BY: Dr. Cabrera REASON FOR ADMISSION: 64 y/old female with past medical history of hypertension, diabetes mellitus, CVA, dementia, was brought from the [facility] facility with abdominal distention and vomiting. Patient had a conservatorship due to psychiatric disease. No reported bloody stool or hematemesis. No recent fever or chills. Upon evaluation patient was tachycardic with a heart rate 124, no fevers. Laboratory work-up revealed leukocytosis WBC 13.5, stable hemoglobin , hematocrit and platelet count. Potassium 3.4. BUN 40, creatinine 1.1. Glucose 134. CRP 12.6 , ESR 21. Urinalysis revealed +2 protein , pyuria and many bacteria. CT scan of the abdomen and pelvis revealed distended gallbladder with adjacent stranding , possibly early acute cholecystitis. Markedly distended stomach with the fluid and gas to the level of proximal duodenum ; no obstructing lesion was identified. Staghorn calculus within the right kidney. No hydronephrosis. In emergency department patient received empiric antibiotic, liter of fluids, analgesic , and subsequently admitted to medical surgical floor for further management. CONSULTANTS: ID specialist Dr. Briseno GI specialist Dr. Noe surgery Dr. Sewell psychiatrist [facility] COURSE: Patient admitted to medical surgical floor. Patient started on IV fluids and empiric antibiotics. NG tube was placed to suction. Urine culture revealed E. coli and Proteus. Rapid COVID-19 was negative. Antibiotic regimen optimized as per ID specialist recommendation . no fevers , mild recurrent t leukocytosis persisted . WBC 11.2 on discharge. ID specialist cleared for discharge and change to oral antibiotic to complete the course. Aspiration precaution maintained. Surgeon and GI specialist closely followed. Patient was followed -up with abdominal x-ray and abdominal ultrasound. Abdominal ultrasound revealed cholelithiasis with gallbladder sludge. No gallbladder wall thickening or pericholecystic fluid. Staghorn calculus seen in the right kidney. Common bile duct measured 4 mm. Abdominal x-ray revealed nonobstructive bowel gas pattern , NG tube in place. No acute process otherwise. NG tube had minimal output since placement . NG tube was discontinued. Abdominal exam remained benign . Patient started on trial of liquid diet Antiemetic were on board as needed. Patient was able to tolerate diet. Bowel regimen instituted ; patient had bowel movement. Pain was controlled. Out of bed with ambulation was encouraged. GI specialist recommended to keep GI procedure on hold at this time. Hemoglobin and hematocrit stable; prior to discharge hemoglobin 12.2 , hematocrit 39.6. Potassium replaced and remained stable . Nephrotoxic's were avoided . Renal parameters remained stable. AST from 53 down to 19, ALT remained stable. Psychiatrist seen and evaluated patient. Patient started on Remeron at bedtime . Patient was provided with reality orientation . Supportive care provided . Patient clinically stabilized and was ready for discharge back to [facility] for continuation of care. FINAL DIAGNOSES: Sepsis likely due to UTI UTI Right kidney staghorn calculus Leukocytosis , mild recurrent Cholelithiasis Nephrolithiasis Abdominal pain History of CVA Diabetes mellitus Hypertension Chronic kidney disease Electrolyte imbalance Dementia with behavioral disturbances DISCHARGE MEDICATIONS: See Medication Reconciliation list. DISCHARGE INSTRUCTIONS: Patient was discharged to the [facility] facility. Follow up with medical doctor at the facility. I have been assigned to dictate discharge summary for this account. I was not involved in the patient's management. Laura Quinones NP May 21, 2020 13:25
--- NOTE | 2020-05-21 16:19 | NUR ---
INSURANCE DC SUMMARY FAXED TO [facility] [phone]
== END 2020-05-19 16:20 | DRG 720 ==
LOC: EDUNIT# 16:24 → EDBD 16:24 → EMR 17:07 → 4E 18:18 → EDBEDREQ 20:53 → 4E 22:44 → OBSVTOIN 05-15 07:04
DX: A41.9 Sepsis, unspecified organism (principal); E46 Unspecified protein-calorie malnutrition; N39.0 Urinary tract infection, site not specified; N20.0 Calculus of kidney; K80.20 Calculus of gallbladder without cholecystitis without obstruction; E11.22 Type 2 diabetes mellitus with diabetic chronic kidney disease; I12.9 Hypertensive chronic kidney disease with stage 1 through stage 4 chronic kidney disease, or unspecified chronic kidney disease; Z88.1 Allergy status to other antibiotic agents; Z88.2 Allergy status to sulfonamides; Z86.73 Personal history of transient ischemic attack (TIA), and cerebral infarction without residual deficits; E11.9 Type 2 diabetes mellitus without complications; N18.9 Chronic kidney disease, unspecified; E87.8 Other disorders of electrolyte and fluid balance, not elsewhere classified; F03.91 Unspecified dementia, unspecified severity, with behavioral disturbance; R62.7 Adult failure to thrive
CPT/HCPCS: 36415; 74018; 74177; 76700; 80048; 80053; 81003; 82150; 83605; 83690; 84484; 85007; 85025; 85610; 85651; 85730; 86140; 86850; 86900; 86901; 87081; 87086; 87181; 93005; 96361; 96374; 99285; J2405; J7030; U0002